=== PATIENT | male | born 1955 | race Hispanic/Latino ===

== ENCOUNTER 2016-08-06 18:25 | Emergency (ER) | payer MEDICAID ==
[2016-08-06 18:33] VITALS: BP 149/101
== END 2016-08-06 19:20 | disposition left against medical advice (07) ==
LOC: ED 18:25
DX: R07.9 Chest pain, unspecified (principal); I10 Essential (primary) hypertension; Z88.0 Allergy status to penicillin; Z88.5 Allergy status to narcotic agent; Z91.030 Bee allergy status; Z53.21 Procedure and treatment not carried out due to patient leaving prior to being seen by health care provider

== ENCOUNTER 2017-02-15 13:02 | Inpatient (IN) | payer MEDICAID ==
[2017-02-15 14:33] LABS: Basophils % (Auto) 2.6 % (0.0-1.8); Eosinophils % (Auto) 9.3 % (0.0-4.3); Hematocrit 39.9 % (35.5-45.6); Hemoglobin 13.1 gm/dl (11.8-15.2); Mean Corpuscular HGB Conc 33 % (32-34); Mean Corpuscular Hemoglobin 28 pg (28-32); Mean Corpuscular Volume 87 fl (84-94); Platelet Count 246 K/mm3 (140-440); Red Blood Count 4.59 M/mm3 (3.65-5.03); Red Cell Distribution Width 14.6 % (13.2-15.2); White Blood Count 9.3 K/mm3 (4.5-11.0)
[2017-02-15 14:51] LABS: Anion Gap 18 mmol/L; BUN/Creatinine Ratio 22.85; Blood Urea Nitrogen 32 mg/dL (9-20); Calcium 9.5 mg/dL (8.4-10.2); Carbon Dioxide 24 mmol/L (22-30); Chloride 101.6 mmol/L (98-107); Glucose 92 mg/dL (75-100); Potassium 4.7 mmol/L (3.6-5.0); Sodium 139 mmol/L (137-145)
--- NOTE | 2017-02-15 14:56 | XRay Report ---
ROUTINE CHEST, TWO VIEWS: HISTORY: Shortness of breath. The trachea, heart, mediastinal contour, lung rodgers and bony thorax are unremarkable. IMPRESSION: No acute cardiopulmonary process.
--- NOTE | 2017-02-15 21:52 | Emergency Department Report ---
ED General Adult HPI - General Chief complaint: Dyspnea/Respdistress Stated complaint: IQRA Time Seen by Provider: 02/15/17 21:51 Source: patient Mode of arrival: Ambulatory Limitations: No Limitations - History of Present Illness Initial comments: She is a 61-year-old male who presents with shortness of breath that has been going on since this morning. Patient has a history of heart failure his ejection fraction is 25%. He states that his symptoms are worse with exertion and better with rest. He states that his symptoms are moderate. He states when he gets like this he usually goes to the emergency department. Patient denies having any pain but he states that he has some palpitations. Patient denies having cough. - Related Data Home Medications Medication Instructions Recorded Confirmed Last Taken ALBUTEROL Inhaler [Proair] 2 puff IH QID PRN 02/15/17 02/15/17 Unknown Hydrochlorothiazide [Hctz] 12.5 mg PO QDAY 02/15/17 02/15/17 Unknown amLODIPine [Norvasc] 5 mg PO DAILY 02/15/17 02/15/17 Unknown Allergies Allergy/AdvReac Type Severity Reaction Status Date / Time bee venom (honey bee) Allergy Hives Verified 02/15/17 14:05 Penicillins Allergy Hives Verified 02/15/17 14:05 morphine AdvReac Unknown Verified 02/15/17 14:05 ED Review of Systems ROS: Stated complaint: IQRA Other details as noted in HPI Constitutional: denies: chills, fever Eyes: denies: eye pain, eye discharge, vision change ENT: denies: ear pain, throat pain Respiratory: shortness of breath, SOB with exertion. denies: cough, wheezing Cardiovascular: palpitations. denies: chest pain Endocrine: no symptoms reported Gastrointestinal: denies: abdominal pain, nausea, diarrhea Genitourinary: denies: urgency, dysuria Musculoskeletal: denies: back pain, joint swelling, arthralgia Skin: denies: rash, lesions Neurological: denies: headache, weakness, paresthesias Psychiatric: denies: anxiety, depression Hematological/Lymphatic: denies: easy bleeding, easy bruising ED Past Medical Hx - Past Medical History Hx Hypertension: Yes (no medication) Hx Congestive Heart Failure: Yes Hx Kidney Stones: Yes Additional medical history: MITRAL VALVE REGURGITATION - Surgical History Additional Surgical History: for broken bones - Social History Smoking Status: Never Smoker Substance Use Type: None - Medications Home Medications: Home Medications Medication Instructions Recorded Confirmed Last Taken Type ALBUTEROL Inhaler [Proair] 2 puff IH QID PRN 02/15/17 02/15/17 Unknown History Hydrochlorothiazide [Hctz] 12.5 mg PO QDAY 02/15/17 02/15/17 Unknown History amLODIPine [Norvasc] 5 mg PO DAILY 02/15/17 02/15/17 Unknown History ED Physical Exam - General Limitations: No Limitations General appearance: alert, in no apparent distress - Head Head exam: Present: atraumatic, normocephalic - Eye Eye exam: Present: normal appearance - ENT ENT exam: Present: mucous membranes moist - Neck Neck exam: Present: normal inspection - Respiratory Respiratory exam: Present: normal lung sounds bilaterally. Absent: respiratory distress - Cardiovascular Cardiovascular Exam: Present: regular rate, tachycardia, S3. Absent: systolic murmur, diastolic murmur, rubs, gallop - GI/Abdominal GI/Abdominal exam: Present: soft, normal bowel sounds - Rectal Rectal exam: Present: deferred - Extremities Exam Extremities exam: Present: normal inspection - Back Exam Back exam: Present: normal inspection - Neurological Exam Neurological exam: Present: alert, oriented X3 - Psychiatric Psychiatric exam: Present: normal affect, normal mood - Skin Skin exam: Present: warm, dry, intact, normal color. Absent: rash ED Course Vital Signs 02/15/17 02/15/17 02/15/17 14:09 21:00 21:11 Temperature 97.5 F L Pulse Rate 105 H 110 H Pulse Rate [ Bilateral Throughout] Respiratory 20 22 22 Rate Respiratory Rate [Bilateral Throughout] Blood Pressure 124/95 140/102 O2 Sat by Pulse 99 99 99 Oximetry 02/15/17 02/15/17 02/15/17 22:00 23:00 23:03 Temperature Pulse Rate 106 H 108 H 109 H Pulse Rate [ Bilateral Throughout] Respiratory 20 24 25 H Rate Respiratory Rate [Bilateral Throughout] Blood Pressure 142/97 142/98 142/98 O2 Sat by Pulse 98 98 98 Oximetry 02/16/17 02/16/17 02/16/17 00:00 00:31 00:50 Temperature Pulse Rate 114 H Pulse Rate [ 106 H 108 H Bilateral Throughout] Respiratory Rate Respiratory 18 18 Rate [Bilateral Throughout] Blood Pressure O2 Sat by Pulse 99 Oximetry 02/16/17 01:00 Temperature Pulse Rate 109 H Pulse Rate [ Bilateral Throughout] Respiratory 21 Rate Respiratory Rate [Bilateral Throughout] Blood Pressure 121/87 O2 Sat by Pulse 97 Oximetry - Reevaluation(s) Reevaluation #1: 02/16/17 02:39 She still states that he is short of breath despite giving Lasix I will send patient to be admitted ED Medical Decision Making - Lab Data Result diagrams: 02/15/17 14:19 02/15/17 14:19 Lab Results 02/15/17 02/15/17 02/15/17 Range/Units 14:19 14:19 22:45 WBC 9.3 (4.5-11.0) K/mm3 RBC 4.59 (3.65-5.03) M/mm3 Hgb 13.1 (11.8-15.2) gm/dl Hct 39.9 (35.5-45.6) % MCV 87 (84-94) fl MCH 28 (28-32) pg MCHC 33 (32-34) % RDW 14.6 (13.2-15.2) % Plt Count 246 (140-440) K/mm3 Lymph % (Auto) 21.4 (13.4-35.0) % Hyde % (Auto) 7.9 H (0.0-7.3) % Eos % (Auto) 9.3 H (0.0-4.3) % Baso % (Auto) 2.6 H (0.0-1.8) % Lymph # 2.0 (1.2-5.4) K/mm3 Hyde # 0.7 (0.0-0.8) K/mm3 Eos # 0.9 H (0.0-0.4) K/mm3 Baso # 0.2 H (0.0-0.1) K/mm3 Seg Neutrophils % 58.8 (40.0-70.0) % Seg Neutrophils # 5.4 (1.8-7.7) K/mm3 Sodium 139 (137-145) mmol/L Potassium 4.7 (3.6-5.0) mmol/L Chloride 101.6 (98-107) mmol/L Carbon Dioxide 24 (22-30) mmol/L Anion Gap 18 mmol/L BUN 32 H (9-20) mg/dL Creatinine 1.4 (0.8-1.5) mg/dL Estimated GFR 52 ml/min BUN/Creatinine Ratio 22.85 % Glucose 92 (75-100) mg/dL Calcium 9.5 (8.4-10.2) mg/dL Troponin T < 0.010 (0.00-0.029) ng/mL NT-Pro-B Natriuret Pep 5999 H (0-900) pg/mL - EKG Data -: EKG Interpreted by Me - EKG Data 02/16/17 02:40 She shows signs of LVHno ST segment elevation or T-wave inversion, normal sinus rhythm - Radiology Data Radiology results: image reviewed Chest x-ray shows mild cardiomegaly no acute pulmonary disease - Medical Decision Making Chief medical diagnosis heart failure exacerbation Differential medical diagnosis COPD, hypokalemia, and STEMI, We'll get CBC, CMP, EKG, troponin, chest x-ray due to patient's medical condition patient will require IV Lasix. I will reassess. Patient states that he still short of breath despite getting breathing treatment I will admit patient for IV Lasix and for observation for his palpitations Critical care attestation.: If time is entered above; I have spent that time in minutes in the direct care of this critically ill patient, excluding procedure time. ED Disposition Clinical Impression: CHF exacerbation Qualifiers: Congestive heart failure type: systolic Qualified Code(s): I50.23 - Acute on chronic systolic (congestive) heart failure Disposition: OP ADMIT IP TO THIS HOSP Is pt being admited?: Yes Does the pt Need Aspirin: No Condition: Stable Referrals: PRIMARY CARE, [Primary Care Provider] - 3-5 Days
[2017-02-15] MEDS ORDERED: PROVENTIL IH ONE (22:35)
[2017-02-15] MEDS ORDERED: LASIX IV ONE (22:41)
--- NOTE | 2017-02-16 02:12 | History and Physical Report ---
History of Present Illness Date of examination: 02/16/17 Date of admission: 02/16/17 Chief complaint: shortness of breath History of present illness: patient is 61-year-old with history of hypertension, CHF. He presents with shortness of breath for 1 week. Shortness of breath was on exertion and on lying flat. He mentions he also has some anxiety making his symptoms worse. He denies any chest pain. He goes to Dr. Alatorre, certified emergency vehicle technician as an outpatient. In Emergency department was diagnosed with CHF exacerbation given Lasix IV and will be admitted for further management. Past History Past Medical History: heart failure, hypertension, other (kidney stones) Past Surgical History: cataract removal, Other (kidney stones) Social history: single, full code. denies: smoking, alcohol abuse Family history: no significant family history Medications and Allergies Allergies Allergy/AdvReac Type Severity Reaction Status Date / Time bee venom (honey bee) Allergy Hives Verified 02/15/17 14:05 Penicillins Allergy Hives Verified 02/15/17 14:05 morphine AdvReac Unknown Verified 02/15/17 14:05 Home Medications Medication Instructions Recorded Confirmed Last Taken Type ALBUTEROL Inhaler [Proair] 2 puff IH QID PRN 02/15/17 02/15/17 Unknown History Hydrochlorothiazide [Hctz] 12.5 mg PO QDAY 02/15/17 02/15/17 Unknown History amLODIPine [Norvasc] 5 mg PO DAILY 02/15/17 02/15/17 Unknown History Review of Systems All systems: negative (no headache, no fever, no abdominal pain, no urinary symptoms. All other systems reviewed and are negative) Exam - Physical Exam Narrative exam: Gen appearance: Not in acute distress HEENT:Normocephalic,atraumatic Neck:supple, no JVD Lungs: Bibasilar rales, no wheezes Heart :S1 and S2 regular, no murmurs, rubs or gallop Abdomen: Soft, non tender,non distended, normal bowel sounds Extremities :no edema,no clubbing or cyanosis, Neuro: Awake alert oriented 3, no focal neurological signs - Constitutional Vitals: Temp Pulse Resp BP Pulse Ox 97.5 F L 109 H 21 121/87 97 02/15/17 14:09 02/16/17 01:00 02/16/17 01:00 02/16/17 01:00 02/16/17 01:00 Results - Labs CBC & Chem 7: 02/15/17 14:19 02/15/17 14:19 Labs: Abnormal lab results 02/15/17 02/15/17 02/15/17 Range/Units 14:19 14:19 22:45 Martin % (Auto) 7.9 H (0.0-7.3) % Eos % (Auto) 9.3 H (0.0-4.3) % Baso % (Auto) 2.6 H (0.0-1.8) % Eos # 0.9 H (0.0-0.4) K/mm3 Baso # 0.2 H (0.0-0.1) K/mm3 BUN 32 H (9-20) mg/dL NT-Pro-B Natriuret Pep 5999 H (0-900) pg/mL Assessment and Plan Acute on chronic systolic CHF. Admit to telemetry. Give Lasix IV. Consult his certified emergency vehicle technician, Dr. Alatorre. Hypertension. BP stable. Resume Norvasc from home Cardiomyopathy with EF 20-25% DVT prophylaxis with heparin subcut. Full code status
[2017-02-16] MEDS ORDERED: MILK OF MAGNESIA PO PRN (02:16)
[2017-02-16] MEDS ORDERED: DULCOLAX PR PRN (02:16)
[2017-02-16] MEDS ORDERED: ZOFRAN IV PRN (02:16)
[2017-02-16] MEDS ORDERED: NITROSTAT SL PRN (02:19)
[2017-02-16] MEDS: HEPARIN SUB-Q SCH ×3 (06:08→22:40)
[2017-02-16] MEDS: TYLENOL PO PRN ×2 (06:12→22:33)
--- NOTE | 2017-02-16 07:44 | Admit Criteria Form ---
Admission Criteria Documentation: HEART FAILURE: COMMON COMPLICATIONS Clinical Indications for Inpatient Care (blackfeet/check or initial the applicable condition/criteria): Ongoing inpatient care may be indicated for heart failure with 1 or more of the following (1)(2)(3)(4)(5)(6)(7)(8): [ ]I. New-onset heart failure [ ]II. Acute cardiac ischemia causing or associated with failure [ ]III. Ongoing need for care for primary condition requiring frequent therapy adjustments because of changes in cardiac function (eg, drug dosage changes for drugs that are renally metabolized) [X]IV. Complications of heart failure, including 1 or more of the following: [ ]a) Hemodynamic instability [ ]b) Pericardial effusion [ ]c) Symptomatic pleural effusion(16) [ ]d) Hypoxemia [ ]e) Tachypnea [X]f) Dyspnea [ ]g) Syncope [ ]h) Altered mental status [ ]i) Acute renal insufficiency that is severe (reduction of more than 50% in estimated glomerular filtration rate from baseline) or progressive (reduction of more than 25% in estimated glomerular filtration rate from baseline, with creatinine continuing to rise) [ ]j) Debilitating anasarca (eg tissue breakdown with infection, inability to void due to edema)(E) (17) [ ]k) Clinically significant metabolic abnormalities due to heart failure (e.g., new-onset metabolic acidosis) Extended stay may be needed until ALL of the following are present(1)(3)(18)(41) (55): [ ]a) Hemodynamic stability [ ]b) Stable and effective diuretic regimen established (or patient on stable dialysis regimen if in chronic renal failure) [ ]c) Volume status acceptable on oral medication [ ]d) Breathing comfortably at rest [ ]e) Saturation of arterial oxygen greater than 90% or at acceptable baseline [ ]f) Pulmonary edema absent or improved [ ]g) Peripheral or sacral edema absent or improved [ ]h) Renal function stable and manageable at a lower level of care [ ]i) Complications (e.g., pleural effusion) resolved or manageable at a lower level of care [ ]j) Patient or caregiver has received written discharge instructions or educational material addressing activity level, diet, discharge medications, follow-up appointment, weight monitoring, and what to do if symptoms worsen. (56)(57)(58) The original [facility] [employer] content created by Lonnie Trammell has been revised. The portions of the content which have been revised are identified through the use of italic text or in bold, and Lonnie Trammell has neither reviewed nor approved the modified material.All other unmodified content is copyright [facility]. Please see references footnoted in the original [facility] edition 2017 Admission Criteria Met: Yes
[2017-02-16] MEDS: PEPCID PO SCH ×2 (09:07→22:30)
[2017-02-16] MEDS ORDERED: LASIX IV SCH (10:00)
[2017-02-16] MEDS ORDERED: NORVASC PO SCH (10:00)
[2017-02-16] MEDS ORDERED: PNEUMOVAX 23 IM ONE (12:00)
--- NOTE | 2017-02-16 12:02 | Consultation ---
History of Present Illness Consult date: 02/16/17 Requesting physician: REUBEN HARRIS Consult reason: shortness of breath History of present illness: The patient is followed by Dr. Alatorre in our office. He has a history of chronic heart failure. His last echocardiogram of January 2016 revealed an ejection fraction of 50-55 percent. In February 2015, he had a negative stress test. He presents this time with a one-week history of exertional dyspnea. He still has chronic orthopnea. There is no chest pain. Past History Past Medical History: heart failure, hypertension, hyperlipidemia, other ( kidney stones) Past Surgical History: cataract removal, Other (kidney stones) Social history: single, full code. denies: smoking, alcohol abuse Family history: denies: CAD Medications and Allergies Allergies Allergy/AdvReac Type Severity Reaction Status Date / Time bee venom (honey bee) Allergy Hives Verified 02/15/17 14:05 Penicillins Allergy Hives Verified 02/15/17 14:05 morphine AdvReac Unknown Verified 02/15/17 14:05 Home Medications Medication Instructions Recorded Confirmed Last Taken Type ALBUTEROL Inhaler [Proair] 2 puff IH QID PRN 02/15/17 02/15/17 Unknown History Hydrochlorothiazide [Hctz] 12.5 mg PO QDAY 02/15/17 02/15/17 Unknown History amLODIPine [Norvasc] 5 mg PO DAILY 02/15/17 02/15/17 Unknown History Active Meds: Active Medications Acetaminophen (Tylenol) 650 mg PO Q4H PRN PRN Reason: Pain MILD(1-3)/Fever >100.5/RUIZ Last Admin: 02/16/17 06:12 Dose: 650 mg Amlodipine Besylate (Norvasc) 5 mg PO DAILY [facility] Last Admin: 02/16/17 09:06 Dose: 5 mg Bisacodyl (Dulcolax) 10 mg PA QDAY PRN PRN Reason: Constipation unrelieved by MOM Famotidine (Pepcid) 20 mg PO BID [facility] Last Admin: 02/16/17 09:07 Dose: 20 mg Furosemide (Lasix) 40 mg IV QDAY [facility] Last Admin: 02/16/17 09:06 Dose: 40 mg Heparin Sodium (Porcine) (Heparin) 5,000 unit SUB-Q Q8HR [facility] Last Admin: 02/16/17 06:08 Dose: 5,000 unit Magnesium Hydroxide (Milk Of Magnesia) 30 ml PO Q4H PRN PRN Reason: Constipation Nitroglycerin (Nitrostat) 0.4 mg SL .Q5MIN PRN PRN Reason: Chest Pain Ondansetron HCl (Zofran) 4 mg IV Q6H PRN PRN Reason: nausea or vomiting Pneumococcal Polyvalent Vaccine (Pneumovax 23) 0.5 ml IM .ONCE ONE Stop: 02/16/17 12:01 Review of Systems Constitutional: no fever, no chills Ears, nose, mouth and throat: no ear pain, no sore throat Cardiovascular: orthopnea, shortness of breath, dyspnea on exertion, paroxysmal nocturnal dyspnea Respiratory: dyspnea on exertion, no cough, no hemoptysis Gastrointestinal: no abdominal pain, no nausea, no vomiting, no diarrhea, no constipation Genitourinary Male: no dysuria, no urinary frequency Rectal: no pain, no bleeding Musculoskeletal: no neck stiffness, no neck pain, no myalgias Integumentary: no rash, no pruritis Neurological: no weakness, no parathesias, no numbness, no tingling, no headaches Endocrine: no cold intolerance, no heat intolerance Hematologic/Lymphatic: no easy bruising, no easy bleeding Allergic/Immunologic: no urticaria, no wheezing Physical Examination Vital Signs Last Vital Signs Temp 98.2 F 02/16/17 08:48 Pulse 92 H 02/16/17 09:06 Resp 18 02/16/17 08:48 BP 124/86 02/16/17 09:06 Pulse Ox 96 02/16/17 08:48 General appearance: no acute distress HEENT: Positive: EOMI, Normocephaly, Mucus Membranes Moist Neck: Positive: neck supple, trachea midline, JVD/HJR (elevated) Cardiac: Positive: Reg Rate and Rhythm, S1/S2 Lungs: Positive: clear to auscultation Neuro: Positive: Grossly Intact Abdomen: Positive: Soft, Active Bowel Sounds. Negative: Tender Skin: Positive: Clear. Negative: Rash Musculoskeletal: Normal Range of Motion Extremities: Present: normal. Absent: edema Results 02/15/17 14:19 02/15/17 14:19 Assessment and Plan I agree with IV diuretics. Replace amlodipine with a beta james. Obtain echocardiogram to reassess LV function especially with his prior history of cardiomyopathy. Ultimately, he may require ischemic reevaluation. This may be performed as an inpatient or outpatient. - Patient Problems (1) Acute on chronic diastolic heart failure Current Visit: Yes Status: Acute (2) HTN (hypertension) Current Visit: Yes Status: Chronic Qualifiers: Hypertension type: essential hypertension Qualified Code(s): I10 - Essential (primary) hypertension (3) H/O cardiomyopathy Current Visit: No Status: Resolved
[2017-02-16] MEDS ORDERED: LASIX PO SCH (13:00)
[2017-02-16 14:52] LABS: BUN/Creatinine Ratio 16.47; Calcium 9.1 mg/dL (8.4-10.2); Chloride 98.9 mmol/L (98-107); Potassium 3.9 mmol/L (3.6-5.0)
--- NOTE | 2017-02-16 16:06 | Event Note ---
Date: 02/16/17 Pt seen and examoned. will cint current mx as dictated in HPI will change lasix to po and also will reduce the dose for JOHN will monitor renal function
[2017-02-16] MEDS: LASIX PO SCH (16:55)
[2017-02-16 22:27] LABS: Magnesium 1.9 mg/dL (1.7-2.3); Phosphorous 3.8 mg/dL (2.5-4.5)
[2017-02-16] MEDS: LOPRESSOR PO SCH (22:30)
[2017-02-17 05:37] LABS: Basophils % (Auto) 2.3 % (0.0-1.8); Eosinophils % (Auto) 14.2 % (0.0-4.3); Hemoglobin 15.4 gm/dl (11.8-15.2); Mean Corpuscular HGB Conc 33 % (32-34); Mean Corpuscular Hemoglobin 28 pg (28-32); Mean Corpuscular Volume 86 fl (84-94); Platelet Count 284 K/mm3 (140-440); Red Blood Count 5.46 M/mm3 (3.65-5.03); Red Cell Distribution Width 14.7 % (13.2-15.2)
[2017-02-17 05:48] LABS: BUN/Creatinine Ratio 18.66; Calcium 9.3 mg/dL (8.4-10.2); Chloride 98.4 mmol/L (98-107); Potassium 4.6 mmol/L (3.6-5.0)
[2017-02-17] MEDS: LASIX PO SCH (06:31)
[2017-02-17] MEDS: TYLENOL PO PRN ×2 (06:31→22:42)
[2017-02-17] MEDS: HEPARIN SUB-Q SCH ×3 (06:32→22:44)
[2017-02-17] MEDS: PEPCID PO SCH ×2 (09:11→22:43)
[2017-02-17] MEDS: LOPRESSOR PO SCH ×2 (09:11→22:43)
--- NOTE | 2017-02-17 11:12 | Progress Note ---
Assessment and Plan Echo reviewed - EF 10-15%, restrictive filling pattern, RVSP 45mmHg. Initiate low dose lisinopril. Cont lopressor. Currently stable cardiac status. Pending pt tolerates addition of lisinopril with BPs WNL, he may discharge home this afternoon from cardiology standpoint. Will plan for coronary angiography as OP. Follow up in our [place] office for BMP on 02/21/2017 @ 10:00AM. Follow up in our [place] office with Dr. Alatorre on 02/22/2017 @ 9:45AM. The patient has been seen in conjunction with Dr. Toscano who agrees with the assessment and plan of care. - Patient Problems (1) Acute on chronic combined systolic and diastolic congestive heart failure Current Visit: Yes Status: Chronic (2) Cardiomyopathy Current Visit: Yes Status: Chronic Qualifiers: Cardiomyopathy type: C (3) HTN (hypertension) Current Visit: Yes Status: Chronic Qualifiers: Hypertension type: essential hypertension Qualified Code(s): I10 - Essential (primary) hypertension (4) Pulmonary HTN Current Visit: Yes Status: Chronic Subjective Date of service: 02/17/17 Principal diagnosis: HF Interval history: Pt resting comfortably in bed, states SOB has improved. Asking when he can go home. VSS. Objective Last Vital Signs Temp 98.4 F 02/17/17 08:00 Pulse 84 02/17/17 09:11 Resp 18 02/17/17 08:00 BP 128/82 02/17/17 09:11 Pulse Ox 95 02/17/17 08:00 - Physical Examination General: Appears Well HEENT: Positive: EOMI, Normocephaly, Mucus Membranes Moist Neck: Positive: neck supple, trachea midline, JVD/HJR (elevated) Cardiac: Positive: Reg Rate and Rhythm, S1/S2 Lungs: Positive: clear to auscultation Neuro: Positive: Grossly Intact Abdomen: Positive: Soft, Active Bowel Sounds. Negative: Tender Skin: Positive: Clear. Negative: Rash Musculoskeletal: Normal Range of Motion Extremities: Present: normal. Absent: edema - Labs and Meds CBC 02/17/17 Range/Units 05:12 WBC 16.0 H (4.5-11.0) K/mm3 RBC 5.46 H (3.65-5.03) M/mm3 Hgb 15.4 H (11.8-15.2) gm/dl Hct 45.0 (35.5-45.6) % Plt Count 284 (140-440) K/mm3 Lymph # 2.4 (1.2-5.4) K/mm3 Ray # 1.1 H (0.0-0.8) K/mm3 Eos # 2.3 H (0.0-0.4) K/mm3 Baso # 0.4 H (0.0-0.1) K/mm3 Comprehensive Metabolic Panel 02/16/17 02/17/17 Range/Units 14:05 05:12 Sodium 141 141 (137-145) mmol/L Potassium 3.9 4.6 (3.6-5.0) mmol/L Chloride 98.9 98.4 (98-107) mmol/L Carbon Dioxide 27 28 (22-30) mmol/L BUN 28 H 28 H (9-20) mg/dL Creatinine 1.7 H 1.5 (0.8-1.5) mg/dL Glucose 109 H 109 H (75-100) mg/dL Calcium 9.1 9.3 (8.4-10.2) mg/dL - Imaging and Cardiology Echo: report reviewed - Telemetry EKG Rhythm: Sinus Rhythm
[2017-02-17] MEDS: ZESTRIL PO SCH (12:26)
[2017-02-17] MEDS: LEVAQUIN PO SCH (12:28)
--- NOTE | 2017-02-17 16:32 | Progress Note ---
Assessment and Plan Acute on chronic systolic CHF. - reduce the dose of lasix. cardiology recommended outpt cardiac cath Hypertension. - cont current med Cardiomyopathy with EF 20-25% - echo on 02/16/17 showed Ef of 10-15% - CARDIAC CATH OUTPT Leukocytosis - place on empiric abx - obtain Cx DVT prophylaxis with heparin subcut. Full code status Subjective Date of service: 02/17/17 Principal diagnosis: HF Interval history: Pt seen and examined WBC count noted to be elevated need cardiac cath outpt Objective - Constitutional Vitals: Vital Signs - 12hr 02/17/17 02/17/17 02/17/17 08:00 09:11 10:00 Temperature 98.4 F Pulse Rate 84 84 Respiratory 18 Rate Blood Pressure 128/82 128/82 O2 Sat by Pulse 95 98 Oximetry 02/17/17 02/17/17 12:20 12:26 Temperature 98 F Pulse Rate 84 84 Respiratory 16 Rate Blood Pressure 110/84 110/84 O2 Sat by Pulse Oximetry General appearance: Present: no acute distress - EENT Eyes: PERRL, EOM intact ENT: hearing intact, clear oral mucosa Ears: bilateral: normal - Neck Neck: supple, normal ROM - Respiratory Respiratory effort: normal Respiratory: bilateral: CTA - Breasts Breasts: normal - Cardiovascular Rhythm: regular Heart Sounds: Present: S1 & S2. Absent: gallop, rub Extremities: pulses intact, No edema, normal color, Full ROM - Gastrointestinal General gastrointestinal: Present: soft, non-tender, non-distended, normal bowel sounds - Integumentary Integumentary: clear, warm, dry - Musculoskeletal Musculoskeletal: 1, strength equal bilaterally - Neurologic Neurologic: moves all extremities - Psychiatric Psychiatric: memory intact, appropriate mood/affect, intact judgment & insight - Labs CBC & Chem 7: 02/18/17 05:11 02/18/17 08:52 Labs: Abnormal lab results 02/17/17 02/17/17 Range/Units 05:12 05:12 WBC 16.0 H (4.5-11.0) K/mm3 RBC 5.46 H (3.65-5.03) M/mm3 Hgb 15.4 H (11.8-15.2) gm/dl Eos % (Auto) 14.2 H (0.0-4.3) % Baso % (Auto) 2.3 H (0.0-1.8) % Becker # 1.1 H (0.0-0.8) K/mm3 Eos # 2.3 H (0.0-0.4) K/mm3 Baso # 0.4 H (0.0-0.1) K/mm3 Seg Neutrophils # 9.8 H (1.8-7.7) K/mm3 BUN 28 H (9-20) mg/dL Glucose 109 H (75-100) mg/dL - Imaging and cardiology Chest x-ray: report reviewed
[2017-02-17] MEDS ORDERED: LEVAQUIN PO SCH (17:00)
[2017-02-17] MEDS: NEURONTIN PO SCH ×2 (18:02→22:42)
[2017-02-18 06:04] LABS: Basophils % (Auto) 1.8 % (0.0-1.8); Hematocrit 44.2 % (35.5-45.6); Hemoglobin 14.6 gm/dl (11.8-15.2); Mean Corpuscular HGB Conc 33 % (32-34); Mean Corpuscular Hemoglobin 28 pg (28-32); Mean Corpuscular Volume 86 fl (84-94); Platelet Count 276 K/mm3 (140-440); Red Blood Count 5.12 M/mm3 (3.65-5.03); Red Cell Distribution Width 14.5 % (13.2-15.2); White Blood Count 12.2 K/mm3 (4.5-11.0)
[2017-02-18] MEDS: LASIX PO SCH (06:21)
[2017-02-18] MEDS: HEPARIN SUB-Q SCH ×2 (06:21→13:19)
[2017-02-18] MEDS: NEURONTIN PO SCH ×2 (07:43→15:16)
[2017-02-18 09:30] LABS: Calcium 8.9 mg/dL (8.4-10.2); Chloride 96.8 mmol/L (98-107)
[2017-02-18 09:37] LABS: Potassium 5.6 mmol/L (3.6-5.0)
[2017-02-18] MEDS: LOPRESSOR PO SCH (10:22)
[2017-02-18] MEDS: ZESTRIL PO SCH (10:23)
[2017-02-18] MEDS: LEVAQUIN PO SCH (10:24)
[2017-02-18] MEDS: PEPCID PO SCH (10:24)
--- NOTE | 2017-02-18 13:09 | Progress Note ---
Assessment and Plan He may be discharged from a cardiac standpoint today after documenting correction of hyperkalemia. Due to borderline BPs, he may not be able to tolerate GRACIE inhibitor therapy. It may also be contributing to elevated potassium. As such, it will be discontinued. He should follow-up at our office in one week. Coronary angiography will be arranged as an outpatient. - Patient Problems (1) Acute on chronic combined systolic and diastolic congestive heart failure Current Visit: Yes Status: Acute (2) Cardiomyopathy Current Visit: Yes Status: Acute Qualifiers: Cardiomyopathy type: C (3) HTN (hypertension) Current Visit: Yes Status: Chronic Qualifiers: Hypertension type: essential hypertension Qualified Code(s): I10 - Essential (primary) hypertension (4) Pulmonary hypertension Current Visit: Yes Status: Acute (5) CKD (chronic kidney disease) Current Visit: Yes Status: Chronic Qualifiers: Chronic kidney disease stage: stage 3 (moderate) Qualified Code(s): N18.3 - Chronic kidney disease, stage 3 (moderate) Subjective Date of service: 02/18/17 Principal diagnosis: HF Interval history: No new complaint Objective Vital Signs Temp Pulse Resp BP Pulse Ox 02/18/17 10:23 100/60 02/18/17 10:22 86 100/69 02/18/17 10:00 98 02/18/17 07:25 98 F 86 18 97/65 98 02/18/17 04:00 97.7 F 78 68 H 87/54 98 02/18/17 00:00 97.7 F 90 20 116/81 97 02/17/17 22:43 94 H 111/81 02/17/17 22:42 20 02/17/17 22:00 20 02/17/17 20:00 99.8 F H 97 H 16 97/54 100 02/17/17 16:00 98 F 84 16 118/78 - Physical Examination General: Appears Well HEENT: Positive: EOMI, Normocephaly, Mucus Membranes Moist Neck: Positive: neck supple, trachea midline, JVD/HJR (elevated) Cardiac: Positive: Reg Rate and Rhythm, S1/S2 Lungs: Positive: clear to auscultation Neuro: Positive: Grossly Intact Abdomen: Positive: Soft, Active Bowel Sounds. Negative: Tender Skin: Positive: Clear. Negative: Rash Musculoskeletal: Normal Range of Motion Extremities: Present: normal. Absent: edema - Labs and Meds CBC 02/18/17 Range/Units 05:11 WBC 12.2 H (4.5-11.0) K/mm3 RBC 5.12 H (3.65-5.03) M/mm3 Hgb 14.6 (11.8-15.2) gm/dl Hct 44.2 (35.5-45.6) % Plt Count 276 (140-440) K/mm3 Lymph # 2.9 (1.2-5.4) K/mm3 [place] # 0.9 H (0.0-0.8) K/mm3 Eos # 1.7 H (0.0-0.4) K/mm3 Baso # 0.2 H (0.0-0.1) K/mm3 Comprehensive Metabolic Panel 02/18/17 Range/Units 08:52 Sodium 136 L (137-145) mmol/L Potassium 5.6 H D (3.6-5.0) mmol/L Chloride 96.8 L (98-107) mmol/L Carbon Dioxide 27 (22-30) mmol/L BUN 30 H (9-20) mg/dL Creatinine 1.5 (0.8-1.5) mg/dL Glucose 170 H (75-100) mg/dL Calcium 8.9 (8.4-10.2) mg/dL - Imaging and Cardiology Echo: report reviewed
--- NOTE | 2017-02-18 15:57 | Discharge Summary ---
Providers - Providers Date of Admission: 02/16/17 02:16 Date of discharge: 02/18/17 Attending physician: AGNIESZKA ZAIDI Primary care physician: VALERI PRETTY MD Hospitalization Condition: Stable Hospital course: Discharge summary and management: Acute on chronic systolic CHF. - reduce the dose of lasix. cardiology recommended outpt cardiac cath Hypertension. - cont current med Cardiomyopathy with EF 20-25% - echo on 02/16/17 showed Ef of 10-15% - CARDIAC CATH OUTPT Leukocytosis - likely due to acute bronchitis - placed on empiric abx - blood Cx obtained Hyperkalemia - likely from lisinopril - reversed with kayexalate, insulin and D50 CKD stage III -Cr stable on discharge DVT prophylaxis with heparin subcut. Full code status Disposition: -01 TO HOME OR SELFCARE Time spent for discharge: 32 minutes Core Measure Documentation - Palliative Care Palliative Care/ Comfort Measures: Not Applicable - Core Measures Any of the following diagnoses?: heart failure - Heart Failure Discharge Requirements GRACIE/ARB for LVSD if EF <40%: No Reason for no GRACIE/ARB: Hyperkalemia Beta james at discharge: Yes Exam - Physical Exam Narrative exam: General appearance: Present: no acute distress - EENT Eyes: PERRL, EOM intact ENT: hearing intact, clear oral mucosa Ears: bilateral: normal - Neck Neck: supple, normal ROM - Respiratory Respiratory effort: normal Respiratory: bilateral: CTA - Breasts Breasts: normal - Cardiovascular Rhythm: regular Heart Sounds: Present: S1 & S2. Absent: gallop, rub Extremities: pulses intact, No edema, normal color, Full ROM - Gastrointestinal General gastrointestinal: Present: soft, non-tender, non-distended, normal bowel sounds - Integumentary Integumentary: clear, warm, dry - Musculoskeletal Musculoskeletal: 1, strength equal bilaterally - Neurologic Neurologic: moves all extremities - Psychiatric Psychiatric: memory intact, appropriate mood/affect, intact judgment & insight - Constitutional Vitals: Temp Pulse Resp BP Pulse Ox 98 F 86 18 100/60 98 02/18/17 07:25 02/18/17 10:22 02/18/17 07:25 02/18/17 10:23 02/18/17 10:00 Plan Activity: advance as tolerated Weight Bearing Status: Non-Weight Bearing Diet: low fat, low salt Follow up with: PRIMARY CAREMD [Primary Care Provider] - 3-5 Days Prescriptions: Aspirin EC [Aspirin Enteric Coated TAB] 81 mg PO QDAY #30 tablet. Furosemide [Lasix TAB] 20 mg PO DAILY@0600 #30 tablet Gabapentin [Neurontin] 100 mg PO Q8H #90 capsule Levofloxacin [Levaquin TAB] 500 mg PO Q24HR #4 tablet Metoprolol [Lopressor TAB] 25 mg PO BID #60 tablet
[2017-02-18] MEDS ORDERED: KIONEX PO PRN (16:00)
[2017-02-18] MEDS ORDERED: D50W (25GM) IV ONE (17:00)
[2017-02-18] MEDS ORDERED: SODIUM BICARBONATE IV ONE (17:00)
[2017-02-18 18:17] VITALS: BP 105/69
== END 2017-02-18 20:27 | disposition home or self-care (01) | DRG 291 ==
LOC: ED 13:02 → 3A 02-16 02:16
PROVIDERS: ADMIT Internal Medicine; ATTEND Internal Medicine
PROC: 3E0234Z Introduction of Serum, Toxoid and Vaccine into Muscle, Percutaneous Approach (ICD-10-PCS; principal; 2017-02-16)
DX: I13.0 Hypertensive heart and chronic kidney disease with heart failure and stage 1 through stage 4 chronic kidney disease, or unspecified chronic kidney disease (principal); I50.43 Acute on chronic combined systolic (congestive) and diastolic (congestive) heart failure; I42.9 Cardiomyopathy, unspecified; I27.2 Other secondary pulmonary hypertension; I34.0 Nonrheumatic mitral (valve) insufficiency; F41.9 Anxiety disorder, unspecified; D72.829 Elevated white blood cell count, unspecified; E87.5 Hyperkalemia; N18.3 Chronic kidney disease, stage 3 (moderate); Z88.0 Allergy status to penicillin; Z88.6 Allergy status to analgesic agent; Z91.030 Bee allergy status; Z87.442 Personal history of urinary calculi; Z98.49 Cataract extraction status, unspecified eye
CPT/HCPCS: 36415; 71020; 80048; 83735; 83880; 84100; 84132; 84484; 85025; 87040; 90732; 93005; 93010; 93306; 94640; 94760; 96374; J1644; J1815; J1940

== ENCOUNTER 2017-04-09 00:18 | Inpatient (IN) | payer MEDICAID ==
[2017-04-09 00:59] LABS: Basophils % (Auto) 1.1 % (0.0-1.8); Hematocrit 40.8 % (35.5-45.6); Hemoglobin 12.9 gm/dl (11.8-15.2); Mean Corpuscular HGB Conc 32 % (32-34); Mean Corpuscular Hemoglobin 27 pg (28-32); Mean Corpuscular Volume 84 fl (84-94); Platelet Count 264 K/mm3 (140-440); Red Blood Count 4.85 M/mm3 (3.65-5.03); Red Cell Distribution Width 16.2 % (13.2-15.2); White Blood Count 12.2 K/mm3 (4.5-11.0)
[2017-04-09 01:13] LABS: Anion Gap 19 mmol/L; Blood Urea Nitrogen 30 mg/dL (9-20); Calcium 8.9 mg/dL (8.4-10.2); Carbon Dioxide 24 mmol/L (22-30); Chloride 100.5 mmol/L (98-107); Glucose 121 mg/dL (75-100); Potassium 4.4 mmol/L (3.6-5.0); Sodium 139 mmol/L (137-145)
--- NOTE | 2017-04-09 09:31 | XRay Report ---
ROUTINE CHEST, TWO VIEWS: HISTORY: Shortness of breath. Mild cardiomegaly unchanged since 03/08/17. Mild central pulmonary venous congestion has developed. The lungs are clear. No evidence for pneumonia, CHF or pneumothorax. IMPRESSION: Mild cardiomegaly and pulmonary venous congestion but no CHF.
[2017-04-09] MEDS ORDERED: LEVAQUIN 500MG/100ML 500 MG/100 ML BAG IV ONE (10:12)
[2017-04-09] MEDS ORDERED: XOPENEX IH ONE (10:12)
[2017-04-09] MEDS ORDERED: ATROVENT IH ONE (10:12)
[2017-04-09] MEDS ORDERED: LASIX IV ONE (10:12)
--- NOTE | 2017-04-09 10:18 | Emergency Department Report ---
ED Shortness of Breath HPI - General Chief Complaint: Dyspnea/Respdistress Stated Complaint: SHORTNESS OF BREATH Time Seen by Provider: 04/09/17 10:05 Source: patient, EMS Mode of arrival: Stretcher Limitations: No Limitations - History of Present Illness Initial Comments: Patient is 61 years old male with history of congestive heart failure with ejection fraction of 15%, history of COPD, history of chronic renal insufficiency presented today with shortness of breath fever going on for 3 days. Patient was recently discharged from the hospital for shortness of breath. Patient denied any nausea or vomiting denied any chest pain at this moment. MD Complaint: shortness of breath, cough -: days(s) Severity: moderate Improves With: oxygen, bronchodilators Known History Of: COPD, congestive heart failure Associated Symptoms: fever, cough - Related Data Previous Rx's Medication Instructions Recorded Last Taken Type Gabapentin [Neurontin] 100 mg PO Q8H #90 capsule 02/18/17 03/08/17 Rx ALBUTEROL Inhaler [ProAir HFA 2 puff IH QID PRN #2 inha 03/12/17 Unknown Rx Inhaler] Aspirin EC [Aspirin Enteric Coated 81 mg PO QDAY #100 tablet. 03/12/17 Unknown Rx TAB] Furosemide [Lasix TAB] 10 mg PO DAILY@0600 #30 tablet 03/12/17 Unknown Rx Gabapentin [Neurontin] 100 mg PO Q8HR #90 capsule 03/12/17 Unknown Rx Metoprolol [Lopressor TAB] 25 mg PO BID #60 tablet 03/12/17 Unknown Rx Potassium Chloride [K-Dur] 8 meq PO QDAY #30 tablet 03/12/17 Unknown Rx Allergies Allergy/AdvReac Type Severity Reaction Status Date / Time bee venom (honey bee) Allergy Hives Verified 02/15/17 14:05 Penicillins Allergy Hives Verified 02/15/17 14:05 morphine AdvReac Unknown Verified 02/15/17 14:05 ED Review of Systems ROS: Stated complaint: SHORTNESS OF BREATH Other details as noted in HPI Comment: All other systems reviewed and negative Constitutional: chills, fever Respiratory: cough, orthopnea, shortness of breath, SOB with exertion, SOB at rest, wheezing Cardiovascular: palpitations Gastrointestinal: denies: abdominal pain, nausea, vomiting Genitourinary: denies: urgency, dysuria, frequency Neurological: denies: headache, weakness, numbness ED Past Medical Hx - Past Medical History Hx Hypertension: Yes Hx Congestive Heart Failure: Yes Hx Diabetes: No Hx Kidney Stones: Yes Hx Asthma: No Hx COPD: No Additional medical history: MITRAL VALVE REGURGITATION - Surgical History Additional Surgical History: for broken bones - Social History Smoking Status: Never Smoker Substance Use Type: None - Medications Home Medications: Home Medications Medication Instructions Recorded Confirmed Last Taken Type Gabapentin [Neurontin] 100 mg PO Q8H #90 capsule 02/18/17 03/08/17 03/08/17 Rx ALBUTEROL Inhaler [ProAir HFA 2 puff IH QID PRN #2 inha 03/12/17 Unknown Rx Inhaler] Aspirin EC [Aspirin Enteric Coated 81 mg PO QDAY #100 tablet. 03/12/17 Unknown Rx TAB] Furosemide [Lasix TAB] 10 mg PO DAILY@0600 #30 tablet 03/12/17 Unknown Rx Gabapentin [Neurontin] 100 mg PO Q8HR #90 capsule 03/12/17 Unknown Rx Metoprolol [Lopressor TAB] 25 mg PO BID #60 tablet 03/12/17 Unknown Rx Potassium Chloride [K-Dur] 8 meq PO QDAY #30 tablet 03/12/17 Unknown Rx ED Physical Exam - General Limitations: No Limitations General appearance: alert, in distress (moderate respiratory distress) - Head Head exam: Present: atraumatic, normocephalic - Eye Eye exam: Present: normal appearance Pupils: Present: normal accommodation - ENT ENT exam: Present: normal exam, normal orophraynx, mucous membranes moist - Neck Neck exam: Present: normal inspection, full ROM. Absent: tenderness, meningismus, lymphadenopathy - Respiratory Respiratory exam: Present: respiratory distress, wheezes, rales, rhonchi, decreased breath sounds, prolonged expiratory. Absent: stridor, chest wall tenderness - Cardiovascular Cardiovascular Exam: Present: tachycardia. Absent: systolic murmur, diastolic murmur - GI/Abdominal GI/Abdominal exam: Present: soft, normal bowel sounds. Absent: distended, tenderness, guarding, rebound, rigid, mass, bruit, pulsatile mass - Extremities Exam Extremities exam: Present: normal inspection. Absent: pedal edema - Back Exam Back exam: Present: normal inspection. Absent: tenderness, CVA tenderness (R), CVA tenderness (L) - Neurological Exam Neurological exam: Present: alert, oriented X3, CN II-XII intact - Skin Skin exam: Present: warm, intact, normal color ED Course Vital Signs 04/09/17 04/09/17 04/09/17 00:39 00:43 08:26 Temperature 98.0 F Pulse Rate 119 H 110 H Pulse Rate [ Bilateral Throughout] Respiratory 18 20 31 H Rate Respiratory Rate [Bilateral Throughout] Blood Pressure 150/107 Blood Pressure 140/102 [Right] O2 Sat by Pulse 96 97 Oximetry 04/09/17 04/09/17 04/09/17 08:30 08:46 09:00 Temperature Pulse Rate 114 H 115 H 111 H Pulse Rate [ Bilateral Throughout] Respiratory 30 H 30 H 21 Rate Respiratory Rate [Bilateral Throughout] Blood Pressure 149/115 149/115 145/108 Blood Pressure [Right] O2 Sat by Pulse 100 100 100 Oximetry 04/09/17 04/09/17 04/09/17 09:30 10:00 10:17 Temperature 98.2 F Pulse Rate 113 H 113 H Pulse Rate [ Bilateral Throughout] Respiratory 20 24 Rate Respiratory Rate [Bilateral Throughout] Blood Pressure 150/110 153/111 Blood Pressure [Right] O2 Sat by Pulse 98 98 Oximetry 04/09/17 04/09/17 04/09/17 10:25 10:30 10:34 Temperature Pulse Rate 114 H Pulse Rate [ 112 H 115 H Bilateral Throughout] Respiratory 18 Rate Respiratory 18 20 Rate [Bilateral Throughout] Blood Pressure 162/109 Blood Pressure [Right] O2 Sat by Pulse 100 Oximetry - Reevaluation(s) Reevaluation #1: 04/09/17 10:54 Patient is feeling better but is still tight, on exam diffuse wheezing ED Medical Decision Making - Lab Data Result diagrams: 04/09/17 00:41 04/09/17 00:41 - EKG Data -: EKG Interpreted by Me EKG shows normal: sinus rhythm Rate: tachycardia - EKG Data Interpretation: no acute changes - Radiology Data Radiology results: report reviewed Chest x-ray ,No pneumonia, pulmonary venous congestion - Medical Decision Making Given the patient's clinical presentation and is still not responding well to the breathing treatment I discussed the patient to be admitted to his doctor Jamia, she agreed to admit the patient to her service. Critical care attestation.: If time is entered above; I have spent that time in minutes in the direct care of this critically ill patient, excluding procedure time. ED Disposition Clinical Impression: CHF exacerbation, COPD exacerbation, Shortness of breath Disposition: OP ADMIT IP TO THIS HOSP Is pt being admited?: Yes Condition: Stable Instructions: Chronic Obstructive Pulmonary Disease (ED) Referrals: PRIMARY CARE, [Primary Care Provider] - 3-5 Days
[2017-04-09] MEDS ORDERED: PROAIR IH PRN (11:14)
--- NOTE | 2017-04-09 11:14 | History and Physical Report ---
History of Present Illness Date of examination: 04/09/17 Date of admission: 04/09/17 Chief complaint: Worsening shortness of breath and cough 3 days duration History of present illness: A very pleasant 61-year-old male patient with significant history of nonischemic cardiomyopathy. Ejection fraction of 15% COPD chronic kidney disease presented to the emergency room with worsening shortness of breath of 3 days' duration associated with cough and congestion Patient denies any chest pain orthopnea or paroxysmal nocturnal dyspnea, complaints of mild nonproductive cough Claims complaints with his medications Initial evaluation in the emergency room patient was noted to be Tachycardic and tachypneic With the slight improvement after receiving oxygen and bronchodilators Past History Past Medical History: heart failure, hypertension, renal failure, other ( Neuropathy,cardiomyopathy Pulmonary hypertension) Past Surgical History: Other (unspecified fractures) Social history: lives with family. denies: smoking, alcohol abuse, prescription drug abuse Family history: hypertension Medications and Allergies Allergies Allergy/AdvReac Type Severity Reaction Status Date / Time bee venom (honey bee) Allergy Hives Verified 02/15/17 14:05 Penicillins Allergy Hives Verified 02/15/17 14:05 morphine AdvReac Unknown Verified 02/15/17 14:05 Home Medications Medication Instructions Recorded Confirmed Last Taken Type Gabapentin [Neurontin] 100 mg PO Q8H #90 capsule 02/18/17 03/08/17 03/08/17 Rx ALBUTEROL Inhaler [ProAir HFA 2 puff IH QID PRN #2 inha 03/12/17 Unknown Rx Inhaler] Aspirin EC [Aspirin Enteric Coated 81 mg PO QDAY #100 tablet.dr 03/12/17 Unknown Rx TAB] Furosemide [Lasix TAB] 10 mg PO DAILY@0600 #30 tablet 03/12/17 Unknown Rx Gabapentin [Neurontin] 100 mg PO Q8HR #90 capsule 03/12/17 Unknown Rx Metoprolol [Lopressor TAB] 25 mg PO BID #60 tablet 03/12/17 Unknown Rx Potassium Chloride [K-Dur] 8 meq PO QDAY #30 tablet 03/12/17 Unknown Rx Review of Systems Constitutional: weakness, no weight loss, no weight gain Ears, nose, mouth and throat: no nasal congestion, no nasal discharge Cardiovascular: chest pain, shortness of breath, no orthopnea, no palpitations Respiratory: cough, cough with sputum Gastrointestinal: no nausea, no vomiting, no diarrhea Genitourinary Male: no dysuria, no hematuria Musculoskeletal: no myalgias, no arthritis Integumentary: rash, pruritis, redness Neurological: no weakness, no numbness Psychiatric: no anxiety, no depression Endocrine: no cold intolerance, no heat intolerance Hematologic/Lymphatic: no easy bruising, no easy bleeding Allergic/Immunologic: no urticaria, no allergic rhinitis Exam - Constitutional Vitals: Temp Pulse Resp BP Pulse Ox 98.2 F 115 H 20 162/109 100 04/09/17 10:17 04/09/17 10:34 04/09/17 10:34 04/09/17 10:30 04/09/17 10:30 General appearance: Present: mild distress, well-nourished - EENT Eyes: Present: PERRL, EOM intact - Neck Neck: Present: supple, normal ROM - Respiratory Respiratory effort: normal Respiratory: bilateral: diminished, rales, negative: rhonchi, wheezing - Cardiovascular Rhythm: regular Heart Sounds: Present: S1 & S2 - Extremities Extremities: no ischemia Extremity abnormal: edema - Abdominal General gastrointestinal: Present: soft, non-tender, non-distended, normal bowel sounds - Integumentary Integumentary: Present: clear, warm - Musculoskeletal Musculoskeletal: strength equal bilaterally - Psychiatric Psychiatric: appropriate mood/affect, cooperative - Neurologic Neurologic: CNII-XII intact, moves all extremities Results - Labs CBC & Chem 7: 04/09/17 00:41 04/09/17 00:41 Labs: Abnormal lab results 04/09/17 04/09/17 Range/Units 00:41 00:41 WBC 12.2 H (4.5-11.0) K/mm3 MCH 27 L (28-32) pg RDW 16.2 H (13.2-15.2) % Eos % (Auto) 10.0 H (0.0-4.3) % Eos # 1.2 H (0.0-0.4) K/mm3 Seg Neutrophils # 8.2 H (1.8-7.7) K/mm3 BUN 30 H (9-20) mg/dL Creatinine 2.0 H (0.8-1.5) mg/dL Glucose 121 H (75-100) mg/dL NT-Pro-B Natriuret Pep 57287 H (0-900) pg/mL Assessment and Plan --Acute on chronic systolic congestive heart failure: We will manage with IV Lasix, beta blockers, no Jaren inhibitors in view of renal failure, input output monitoring, low sodium diet, fluid restriction --Nonischemic cardiomyopathy; ejection fraction of 10-15%[in 02/23] Continue current anti-failure medications, cardiology evaluation --Hypertension; moderate control, continue current antihypertensives when necessary hydralazine --Acute renal failure; secondary to ATN Gentle hydration, closely monitor his renal failure function, avoid nephrotoxic medications, nephrology evaluation if needed --Neuropathy; supportive care, Neurontin --DVT prophylaxis with Lovenox Closely monitor the patient and adjust management as needed Follow cardiology evaluation tomorrow optimize the medications Possible discharge in 1-2 days if stable
[2017-04-09] MEDS ORDERED: PROVENTIL IH PRN ×2 (11:29→11:33)
[2017-04-09] MEDS: NEURONTIN PO SCH ×2 (13:12→22:16)
[2017-04-09] MEDS ORDERED: APRESOLINE IV PRN (16:02)
[2017-04-09] MEDS: LASIX IV SCH (19:04)
[2017-04-09] MEDS: APRESOLINE PO SCH (22:16)
[2017-04-09] MEDS: LOPRESSOR PO SCH (22:17)
[2017-04-10] MEDS: NEURONTIN PO SCH ×4 (05:12→21:44)
[2017-04-10] MEDS: APRESOLINE PO SCH ×3 (05:13→21:36)
[2017-04-10] MEDS: LASIX IV SCH (05:13)
[2017-04-10 05:45] LABS: Hematocrit 44.5 % (35.5-45.6); Hemoglobin 14.4 gm/dl (11.8-15.2); Mean Corpuscular HGB Conc 32 % (32-34); Mean Corpuscular Hemoglobin 27 pg (28-32); Mean Corpuscular Volume 83 fl (84-94); Platelet Count 259 K/mm3 (140-440); Red Blood Count 5.34 M/mm3 (3.65-5.03); Red Cell Distribution Width 16.2 % (13.2-15.2)
[2017-04-10 05:47] LABS: White Blood Count 20.6 K/mm3 (4.5-11.0)
[2017-04-10 06:01] LABS: BUN/Creatinine Ratio 21.53; Calcium 9.4 mg/dL (8.4-10.2); Chloride 97.2 mmol/L (98-107); Potassium 5.1 mmol/L (3.6-5.0)
[2017-04-10 06:27] LABS: Basophils % (Manual) 0 % (0.0-1.8); Blastocytes % (Manual) 0 %; Eosinophils % (Manual) 0 % (0.0-4.3); Total Cells Counted Percent 0
[2017-04-10 07:13] LABS: Diff Status Complete; Platelet Estimate Consistent w Auto
--- NOTE | 2017-04-10 07:29 | Progress Note ---
Assessment and Plan Assessment and plan: --Acute on chronic systolic congestive heart failure: We will manage with IV Lasix, beta blockers, no Jaren inhibitors in view of renal failure, input output monitoring, low sodium diet, fluid restriction --Nonischemic cardiomyopathy; ejection fraction of 10-15%[in 02/23] Continue current anti-failure medications, cardiology evaluation --Acute exacerbation of COPD; oxygen titrate to O2 sats more than 90%, nebulizers, IV steroids, IV antibiotics. --Lactic acidosis; possible sepsis secondary to acute bronchitis, possible pneumonitis, UTI Continue empiric IV antibiotics, follow cultures, supportive care, ID evaluation if needed --Leukocytosis, secondary to sepsis, IV steroids, closely monitor, follow cultures --Hypertension; moderate control, continue current antihypertensives when necessary hydralazine --Acute renal failure; secondary to ATN Gentle hydration, closely monitor his renal failure function, avoid nephrotoxic medications, nephrology evaluation if needed --Neuropathy; supportive care, Neurontin --DVT prophylaxis with Lovenox Closely monitor the patient and adjust management as needed Consults and recommendations noted and appreciated Follow cultures, adjust antibiotics but sensitive to Full CODE STATUS Plan of care discussed with the patient and his nurse History Interval history: Patient seen and examined this morning medical records reviewed Physical slightly better no new complaints Mild shortness of breath, denies chest pain, afebrile Hospitalist Physical - Constitutional Vitals: Temp Pulse Resp BP Pulse Ox 97.8 F 94 H 20 129/90 96 04/10/17 04:50 04/10/17 04:50 04/10/17 04:50 04/10/17 05:13 04/10/17 04:50 General appearance: Present: no acute distress, well-nourished - EENT Eyes: Present: PERRL, EOM intact - Neck Neck: Present: supple, normal ROM - Respiratory Respiratory effort: normal Respiratory: bilateral: diminished, wheezing, negative: rales, rhonchi - Cardiovascular Rhythm: regular Heart Sounds: Present: S1 & S2 - Extremities Extremities: no ischemia Extremity abnormal: edema - Abdominal General gastrointestinal: soft, non-tender, non-distended - Integumentary Integumentary: Present: clear, warm, rash - Psychiatric Psychiatric: appropriate mood/affect, cooperative - Neurologic Neurologic: CNII-XII intact, moves all extremities Results - Labs CBC & Chem 7: 04/10/17 05:17 04/10/17 05:17 Labs: Laboratory Last Values WBC 20.6 K/mm3 (4.5-11.0) H 04/10/17 05:17 RBC 5.34 M/mm3 (3.65-5.03) H 04/10/17 05:17 Hgb 14.4 gm/dl (11.8-15.2) 04/10/17 05:17 Hct 44.5 % (35.5-45.6) 04/10/17 05:17 MCV 83 fl (84-94) L 04/10/17 05:17 MCH 27 pg (28-32) L 04/10/17 05:17 MCHC 32 % (32-34) 04/10/17 05:17 RDW 16.2 % (13.2-15.2) H 04/10/17 05:17 Plt Count 259 K/mm3 (140-440) 04/10/17 05:17 Lymph % (Auto) 16.0 % (13.4-35.0) 04/09/17 00:41 [place] % (Auto) 5.9 % (0.0-7.3) 04/09/17 00:41 Eos % (Auto) 10.0 % (0.0-4.3) H 04/09/17 00:41 Baso % (Auto) 1.1 % (0.0-1.8) 04/09/17 00:41 Lymph # 2.0 K/mm3 (1.2-5.4) 04/09/17 00:41 [place] # 0.7 K/mm3 (0.0-0.8) 04/09/17 00:41 Eos # 1.2 K/mm3 (0.0-0.4) H 04/09/17 00:41 Baso # 0.1 K/mm3 (0.0-0.1) 04/09/17 00:41 Add Manual Diff Complete 04/10/17 05:17 Total Counted 100 04/10/17 05:17 Seg Neutrophils % [employer] 04/10/17 05:17 Band Neutrophils % 2.0 % 04/10/17 05:17 Lymphocytes % (Manual) 6.0 % (13.4-35.0) L 04/10/17 05:17 Reactive Lymphs % (Man) 0 % 04/10/17 05:17 Monocytes % (Manual) 0 % (0.0-7.3) 04/10/17 05:17 Eosinophils % (Manual) 0 % (0.0-4.3) 04/10/17 05:17 Basophils % (Manual) 0 % (0.0-1.8) 04/10/17 05:17 Metamyelocytes % 0 % 04/10/17 05:17 Myelocytes % 0 % 04/10/17 05:17 Promyelocytes % 0 % 04/10/17 05:17 Blast Cells % 0 % 04/10/17 05:17 Nucleated RBC % Not Reportable 04/10/17 05:17 Seg Neutrophils # 8.2 K/mm3 (1.8-7.7) H 04/09/17 00:41 Seg Neutrophils # Man 19.0 K/mm3 (1.8-7.7) H 04/10/17 05:17 Band Neutrophils # 0.4 K/mm3 04/10/17 05:17 Lymphocytes # (Manual) 1.2 K/mm3 (1.2-5.4) 04/10/17 05:17 Abs React Lymphs (Man) 0.0 K/mm3 04/10/17 05:17 Monocytes # (Manual) 0.0 K/mm3 (0.0-0.8) 04/10/17 05:17 Eosinophils # (Manual) 0.0 K/mm3 (0.0-0.4) 04/10/17 05:17 Basophils # (Manual) 0.0 K/mm3 (0.0-0.1) 04/10/17 05:17 Metamyelocytes # 0.0 K/mm3 04/10/17 05:17 Myelocytes # 0.0 K/mm3 04/10/17 05:17 Promyelocytes # 0.0 K/mm3 04/10/17 05:17 Blast Cells # 0.0 K/mm3 04/10/17 05:17 WBC Morphology Not Reportable 04/10/17 05:17 Hypersegmented Neuts Not Reportable 04/10/17 05:17 Hyposegmented Neuts Not Reportable 04/10/17 05:17 Hypogranular Neuts Not Reportable 04/10/17 05:17 Smudge Cells Not Reportable 04/10/17 05:17 Toxic Granulation Not Reportable 04/10/17 05:17 Toxic Vacuolation Not Reportable 04/10/17 05:17 Dohle Bodies Not Reportable 04/10/17 05:17 Pelger-Huet Anomaly Not Reportable 04/10/17 05:17 Romero Rods Not Reportable 04/10/17 05:17 Platelet Estimate Consistent w auto 04/10/17 05:17 Clumped Platelets Not Reportable 04/10/17 05:17 Plt Clumps, EDTA Not Reportable 04/10/17 05:17 Large Platelets Not Reportable 04/10/17 05:17 Giant Platelets Not Reportable 04/10/17 05:17 Platelet Satelliting Not Reportable 04/10/17 05:17 Plt Morphology Comment Not Reportable 04/10/17 05:17 RBC Morphology Not Reportable 04/10/17 05:17 Dimorphic RBCs Not Reportable 04/10/17 05:17 Polychromasia Not Reportable 04/10/17 05:17 Hypochromasia Not Reportable 04/10/17 05:17 Poikilocytosis Not Reportable 04/10/17 05:17 Anisocytosis Not Reportable 04/10/17 05:17 Microcytosis Not Reportable 04/10/17 05:17 Macrocytosis Not Reportable 04/10/17 05:17 Spherocytes Not Reportable 04/10/17 05:17 Pappenheimer Bodies Not Reportable 04/10/17 05:17 Sickle Cells Not Reportable 04/10/17 05:17 Target Cells Not Reportable 04/10/17 05:17 Tear Drop Cells Not Reportable 04/10/17 05:17 Ovalocytes Not Reportable 04/10/17 05:17 Helmet Cells Not Reportable 04/10/17 05:17 Gr[place]-Pisek Bodies Not Reportable 04/10/17 05:17 [place] Rings Not Reportable 04/10/17 05:17 [place] Cells Not Reportable 04/10/17 05:17 Bite Cells Not Reportable 04/10/17 05:17 Crenated Cell Not Reportable 04/10/17 05:17 Elliptocytes Not Reportable 04/10/17 05:17 Acanthocytes (Spur) Not Reportable 04/10/17 05:17 Rouleaux Not Reportable 04/10/17 05:17 Hemoglobin C Crystals Not Reportable 04/10/17 05:17 Schistocytes Not Reportable 04/10/17 05:17 Malaria parasites Not Reportable 04/10/17 05:17 Bunny Bodies Not Reportable 04/10/17 05:17 Hem Pathologist Commnt No 04/10/17 05:17 Sodium 141 mmol/L (137-145) 04/10/17 05:17 Potassium 5.1 mmol/L (3.6-5.0) H 04/10/17 05:17 Chloride 97.2 mmol/L (98-107) L 04/10/17 05:17 Carbon Dioxide 30 mmol/L (22-30) 04/10/17 05:17 Anion Gap 19 mmol/L 04/10/17 05:17 BUN 28 mg/dL (9-20) H 04/10/17 05:17 Creatinine 1.3 mg/dL (0.8-1.5) 04/10/17 05:17 Estimated GFR 57 ml/min 04/10/17 05:17 BUN/Creatinine Ratio 21.53 % 04/10/17 05:17 Glucose 165 mg/dL (75-100) H 04/10/17 05:17 Lactic Acid 3.00 mmol/L (0.7-2.0) H* 04/10/17 05:17 Calcium 9.4 mg/dL (8.4-10.2) 04/10/17 05:17 Troponin T < 0.010 ng/mL (0.00-0.029) 04/09/17 00:41 NT-Pro-B Natriuret Pep 14736 pg/mL (0-900) H 04/09/17 00:41
[2017-04-10] MEDS: HALFPRIN EC PO SCH (09:50)
[2017-04-10] MEDS: LOPRESSOR PO SCH ×2 (09:52→21:36)
[2017-04-10] MEDS ORDERED: LEVAQUIN 500MG/100ML 500 MG/100 ML BAG IV SCH (10:00)
[2017-04-10] MEDS ORDERED: LEVAQUIN 250MG/50ML 250 MG/50 ML BAG IV SCH (10:00)
[2017-04-10] MEDS ORDERED: K-DUR PO SCH (10:00)
--- NOTE | 2017-04-10 11:17 | Consultation ---
History of Present Illness - Reason for Consult Consult date: 04/10/17 leukocytosis Requesting physician: FAUSTINA VELASQUEZ - History of Present Illness 61 years old female with history of non-ischemic cardiomyopathy, EF of 15%, COPD , chronic kidney disease, hypertension, who was admitted on 04/09/2017 due to progressive shortness of breath, productive cough with white sputum for 1-2 weeks, chest congestion. Patient denies any recent fever or chills. Patient reports a diffuse nodular pruritic rash over his chest, arms , abdomen and legs. Rash has started a week ago and has become worse. Patient has been exposed to cat scratches. Of note, this is the 4th admission in 2 months due to SOB, volume overload and kidney failure. He has started on new cardiac meds and diuretics. In the emergency room, initial temperature was 98, heart rate 119, blood pressure 140/102. Initial white count was 12,000 which them went to 20,000. Creatinine 2. Lactate is 2.3. CXR showed cardiomegaly and bilateral pulmonary congestion. Current Antimicrobials: Levaquin 04/10 Microbiology: Blood cultures: 04/09 neg Urine cultures: Respiratory cultures: Past History Past Medical History: heart failure, hypertension, renal failure, other ( Neuropathy,cardiomyopathy Pulmonary hypertension) Past Surgical History: Other (unspecified fractures) Social history: lives with family. denies: smoking, alcohol abuse, prescription drug abuse Family history: hypertension Medications and Allergies Allergies Allergy/AdvReac Type Severity Reaction Status Date / Time bee venom (honey bee) Allergy Hives Verified 02/15/17 14:05 Penicillins Allergy Hives Verified 02/15/17 14:05 morphine AdvReac Unknown Verified 02/15/17 14:05 Home Medications Medication Instructions Recorded Confirmed Last Taken Type Gabapentin [Neurontin] 100 mg PO Q8H #90 capsule 02/18/17 04/10/17 1 Day Ago Rx ALBUTEROL Inhaler [ProAir HFA 2 puff IH QID PRN #2 inha 03/12/17 04/10/17 1 Day Ago Rx Inhaler] Aspirin EC [Aspirin Enteric Coated 81 mg PO QDAY #100 tablet. 03/12/17 1 Day Ago Rx TAB] Furosemide [Lasix TAB] 10 mg PO DAILY@0600 #30 tablet 03/12/17 04/10/17 1 Day Ago Rx Metoprolol [Lopressor TAB] 25 mg PO BID #60 tablet 03/12/17 04/10/17 1 Day Ago Rx Potassium Chloride [K-Dur] 8 meq PO QDAY #30 tablet 03/12/17 04/10/17 1 Day Ago Rx Active Meds: Active Medications Albuterol (Proventil) 2.5 mg IH QID PRN PRN Reason: Shortness Of Breath Last Admin: 04/10/17 09:10 Dose: 2.5 mg Albuterol (Proventil) 2.5 mg IH Q4HRT PRN PRN Reason: Shortness Of Breath Aspirin (Halfprin Ec) 81 mg PO QDAY [facility] Last Admin: 04/10/17 09:50 Dose: 81 mg Furosemide (Lasix) 40 mg IV 0600,1800 [facility] Last Admin: 04/10/17 05:13 Dose: 40 mg Gabapentin (Neurontin) 100 mg PO Q8H [facility] Last Admin: 04/10/17 05:12 Dose: 100 mg Hydralazine HCl (Apresoline) 10 mg PO Q8HR [facility] Last Admin: 04/10/17 05:13 Dose: 10 mg Hydralazine HCl (Apresoline) 10 mg IV Q4HR PRN PRN Reason: Hypertension Last Admin: 04/10/17 08:08 Dose: 10 mg Levofloxacin/Dextrose (Levaquin 250mg/50ml) 250 mg in 50 mls @ 100 mls/hr IV Q24HR [facility] Last Admin: 04/10/17 09:53 Dose: 100 mls/hr Methylprednisolone Sodium Succinate (Solu-Medrol) 40 mg IV Q8HR [facility] Last Admin: 04/10/17 05:13 Dose: 40 mg Metoprolol Tartrate (Lopressor) 25 mg PO BID [facility] Last Admin: 04/10/17 09:52 Dose: 25 mg Potassium Chloride (K-Dur) 8 meq PO QDAY [facility] Review of Systems All systems: negative (cough, congestion, rash) Physical Examination - Physical Exam Narrative exam: General appearance: Alert in NAD, conversant Eyes: anicteric sclerae, moist conjunctivae; no lid-lag; PERRLA HENT: Atraumatic; oropharynx clear with moist mucous membranes and no mucosal ulcerations/no oral thrush; normal hard and soft palate. Normal external ears. Neck: Trachea midline; supple, no thyromegaly or lymphadenopathy Lungs: bibasilar crackles CV: RRR, no murmurs Abdomen: Soft, non-tender; no masses or hepatosplenomegaly Extremities: No peripheral edema or extremity lymphadenopathy Skin: multiple nodular round lesions with some dequamation and mild erythema mainly on chest, abdomen, legs, and arms. Cat scratch on left leg. Psych: Appropriate affect, alert and oriented to person, place and time. Neuro: alert and oriented x 3. Moving all extermities Lines: No CVL / PICC - Constitutional Vitals: Vital Signs Temp Pulse Resp BP Pulse Ox 98.0 F 97 H 20 134/97 99 04/10/17 07:25 04/10/17 09:27 04/10/17 09:27 04/10/17 09:52 04/10/17 07:25 Temperature -Last 24 Hours Temperature 98.0 F Temperature 97.8 F Temperature 97.5 F Temperature 98.0 F Temperature 97.3 F Temperature 97.3 F Results - Labs CBC & Chem 7: 04/10/17 05:17 04/10/17 05:17 Labs: Abnormal lab results 04/09/17 04/10/17 04/10/17 Range/Units 16:04 05:17 05:17 WBC 20.6 H (4.5-11.0) K/mm3 RBC 5.34 H (3.65-5.03) M/mm3 MCV 83 L (84-94) fl MCH 27 L (28-32) pg RDW 16.2 H (13.2-15.2) % Lymphocytes % (Manual) 6.0 L (13.4-35.0) % Seg Neutrophils # Man 19.0 H (1.8-7.7) K/mm3 Potassium (3.6-5.0) mmol/L Chloride (98-107) mmol/L BUN (9-20) mg/dL Glucose (75-100) mg/dL Lactic Acid 2.60 H* 3.00 H* (0.7-2.0) mmol/L 04/10/17 Range/Units 05:17 WBC (4.5-11.0) K/mm3 RBC (3.65-5.03) M/mm3 MCV (84-94) fl MCH (28-32) pg RDW (13.2-15.2) % Lymphocytes % (Manual) (13.4-35.0) % Seg Neutrophils # Man (1.8-7.7) K/mm3 Potassium 5.1 H (3.6-5.0) mmol/L Chloride 97.2 L (98-107) mmol/L BUN 28 H (9-20) mg/dL Glucose 165 H (75-100) mg/dL Lactic Acid (0.7-2.0) mmol/L Assessment and Plan Assessment: 1) SIRS: Present on admission, manifested by increased lactate and progressive leukocytosis. Etiology unclear ? pneumonia ? volume contraction/dehydration ( pt was on increased diuretics from recent discharge) ?IV steroides (steroids- induced leukocytosis). 2) Presumed pneumonia versus bronchitis: CXR c/w pulmonary venous congestion 3) Nodular rash pruritic? scabies ? Staph folliculitis Plan: -follow-up blood cultures -obtain C-reactive protein (CRP) -start permethrin 5% x 1 then in 2 weeks empirically -start doxycycline PO -continue levaquin -monitor leukocytosis -contact isolation Thank you Dr Velasquez for your consultation, will follow up with you. Anya Green MD Infectious Diseases Specialist [facility] ([facility]) M [phone] O [phone]
[2017-04-10] MEDS ORDERED: ACTICIN TP ONE (12:00)
[2017-04-10] MEDS: PROVENTIL IH PRN (14:43)
--- NOTE | 2017-04-10 17:00 | Event Note ---
Date: 04/10/17 Detailed cardiology consultation dictated. A: #1- Acute on chronic combined systolic and diastolic HF #2- CMP - EF 10-15% #3- Leukocytosis #4- HTN #5- Mild pulmonary HTN #6- CKD P: Monitor renal indices. Convert IV diuresis to PO. Continue metoprolol. No ACEI/ARB at this time in setting of CKD. Pt agreeable to LifeVest. LifeVest ordered. Coronary angiography for further evaluation of cardiomyopathy and MURCIA when pt. stable from a respiratory standpoint, leukocytosis resolved and when deemed safe by nephrology. Recommend nephrology consultation per primary. Sofi CABRALES NP / DR. MARTINS
[2017-04-10] MEDS: VIBRAMYCIN PO SCH (21:36)
[2017-04-11] MEDS: NEURONTIN PO SCH ×3 (04:32→22:56)
--- NOTE | 2017-04-11 05:36 | Consultation ---
LOCATION: Room #A483. CONSULTATION REQUESTING PHYSICIAN: Veronique Mendoza M.D. CONSULTING PHYSICIAN: LIDIA MARTINS M.D. HISTORY OF PRESENT ILLNESS: This is a 61-year-old white male who was admitted to the hospital with complaints of severe shortness of breath for further evaluation and management. The patient is known to have nonischemic cardiomyopathy with ejection fraction in the range of about 15%. In addition, the patient also has a history of chronic obstructive lung disease and has been on medications. The patient stated that his symptoms started getting worse about 3 days ago. He became quite dyspneic with orthopnea and he was also having cough and chest congestion. No fever, no chills. The patient denied any chest pain. As symptoms got worse, he decided to come to the Emergency Room. He denied any history of paroxysmal nocturnal dyspnea, although he had some orthopnea. The patient stated that he has been taking all his medications regularly, but his symptoms got worsened. The patient did notice some wheezing fit and coughing fit. No history of any dizziness or syncope. The patient denies any GI complaints, abdominal pain, nausea, vomiting ____. No complaints at this time. PAST MEDICAL HISTORY INCLUDES: 1. Nonischemic cardiomyopathy with severe left ventricular systolic dysfunction and ejection fraction of 15% and history of systolic heart failure. 2. Hypertension. 3. History of chronic obstructive pulmonary disease. 4. History of chronic kidney disease. SOCIAL HISTORY: The patient is nonsmoker, nonalcoholic. ALLERGIES: BEE VENOM, PENICILLIN AND MORPHINE. MEDICATIONS: At the time of admission, the patient was on aspirin 81 mg daily, Lasix 40 mg daily, gabapentin 100 mg 3 times a day, metoprolol tartrate 25 mg p.o. b.i.d. and albuterol inhaler. He was also taking gabapentin 100 mg 3 times a day. REVIEW OF SYSTEMS: CARDIOVASCULAR: History of weakness, shortness of breath, orthopnea, cough as noted. RESPIRATORY: The patient did give a history of cough and chest congestion. GENITOURINARY: Unremarkable. GASTROINTESTINAL: Unremarkable. NEUROLOGIC: Unremarkable. PHYSICAL EXAMINATION: GENERAL: This is a 61-year-old white male, well-developed, well-nourished, thin, [id number] respiratory distress, appears dyspneic, ____. SKIN: Warm and dry. HEENT: Pupils reactive. NECK: Supple. Both carotids are well palpable. No definite bruit, no JVD. CHEST AND LUNGS: Distant breath sounds, prolonged expiration noted. No significant rhonchi. A few basal rales found. HEART: S1, S2 heard well. Grade 1/6 systolic murmur noted. No diastolic murmur. ABDOMEN: Soft, nontender. Grossly nonpalpable. Bowel sounds are heard normal. EXTREMITIES: No edema at the present time, but apparently, the patient did have edema at the time of examination. NEUROLOGIC: Unremarkable. RECTAL: Not done at this time. VITAL SIGNS: The patient's blood pressure was 162/109 at the time of admission. Heart rate was 115. LABORATORY DATA: Showed hemoglobin of 12.9, hematocrit 40.8. The patient's WBC count was 12,200. The patient's BUN was 30, creatinine was 2.0. IMPRESSION: 1. Acute on chronic systolic heart failure, decompensated. 2. Nonischemic cardiomyopathy with ejection fraction of 10% to 15%. 3. Hypertension. 4. Chronic kidney disease. 5. History of peripheral neuropathy. This is a 61-year-old white male with known history of chronic systolic heart failure due to nonischemic cardiomyopathy. He is now admitted to the hospital with severe shortness of breath, cough, etc., of 3-4 days' duration for further evaluation and management. The patient's history and findings are consistent with decompensated systolic heart failure. Incidentally, the patient is also noted to have worsening of severe lung function. I agree with present management and admitting the patient to the hospital. We will go ahead and start him on diuresis and monitor the renal function closely. Monitor the blood pressure too. Resume rest of his medications as tolerated. Problems were explained to the patient in detail. The patient expressed understanding. Once the patient's condition improves, we will consider doing cardiac catheterization and coronary angiography during this admission for reevaluation of his cardiac status further. Pros and cons explained to the patient. The patient expressed understanding. Rest of the plan as per orders. Thank you for this consultation. We will follow the patient along with you. JOB# [id number] MARISABEL/AMOL
[2017-04-11] MEDS: LASIX PO SCH ×2 (05:56→05:58)
[2017-04-11] MEDS: APRESOLINE PO SCH ×3 (05:56→21:31)
[2017-04-11 08:14] LABS: Hematocrit 41.8 % (35.5-45.6); Hemoglobin 13.7 gm/dl (11.8-15.2); Mean Corpuscular HGB Conc 33 % (32-34); Mean Corpuscular Hemoglobin 27 pg (28-32); Mean Corpuscular Volume 82 fl (84-94); Platelet Count 251 K/mm3 (140-440); Red Blood Count 5.07 M/mm3 (3.65-5.03); Red Cell Distribution Width 16.4 % (13.2-15.2)
[2017-04-11 08:27] LABS: White Blood Count 33.1 K/mm3 (4.5-11.0)
[2017-04-11 08:28] LABS: Anion Gap 14 mmol/L; BUN/Creatinine Ratio 28; Blood Urea Nitrogen 33 mg/dL (9-20); Calcium 9.1 mg/dL (8.4-10.2); Carbon Dioxide 30 mmol/L (22-30); Chloride 97.1 mmol/L (98-107); Glucose 160 mg/dL (75-100); Potassium 4.5 mmol/L (3.6-5.0); Sodium 137 mmol/L (137-145)
[2017-04-11] MEDS: HALFPRIN EC PO SCH (10:00)
[2017-04-11] MEDS ORDERED: LEVAQUIN 750MG/150ML 750 MG/150 ML BAG IV SCH (10:00)
--- NOTE | 2017-04-11 10:11 | Consultation ---
History of Present Illness - Reason for Consult Consult date: 04/11/17 acute renal failure, chronic renal failure Requesting physician: RALPH CABRALES - History of Present Illness 61 years old female with history of non-ischemic cardiomyopathy, EF of 15%, COPD , chronic kidney disease, hypertension, who was admitted on 04/09/2017 due to progressive shortness of breath, productive cough with white sputum for 1-2 weeks, chest congestion. Patient denies any recent fever or chills. Patient reports a diffuse nodular pruritic rash over his chest, arms , abdomen and legs. Rash has started a week ago and has become worse. Patient has been exposed to cat scratches. Of note, this is the 4th admission in 2 months due to SOB, volume overload and kidney failure. He has started on new cardiac meds and diuretics. In the emergency room, initial temperature was 98, heart rate 119, blood pressure 140/102. Initial white count was 12,000 which them went to 20,000. Creatinine 1.2. Lactate is 2.3. CXR showed cardiomegaly and bilateral pulmonary congestion. Review of Systems All systems: negative (cough, congestion, rash) Past History Past Medical History: heart failure, hypertension, renal failure, other ( Neuropathy,cardiomyopathy Pulmonary hypertension) Past Surgical History: Other (unspecified fractures) Social history: lives with family. denies: smoking, alcohol abuse, prescription drug abuse Family history: hypertension Medications and Allergies Allergies Allergy/AdvReac Type Severity Reaction Status Date / Time bee venom (honey bee) Allergy Hives Verified 02/15/17 14:05 Penicillins Allergy Hives Verified 02/15/17 14:05 morphine AdvReac Unknown Verified 02/15/17 14:05 Home Medications Medication Instructions Recorded Confirmed Last Taken Type Gabapentin [Neurontin] 100 mg PO Q8H #90 capsule 02/18/17 04/10/17 1 Day Ago Rx ALBUTEROL Inhaler [ProAir HFA 2 puff IH QID PRN #2 inha 03/12/17 04/10/17 1 Day Ago Rx Inhaler] Aspirin EC [Aspirin Enteric Coated 81 mg PO QDAY #100 tablet. 03/12/17 1 Day Ago Rx TAB] Furosemide [Lasix TAB] 10 mg PO DAILY@0600 #30 tablet 03/12/17 04/10/17 1 Day Ago Rx Metoprolol [Lopressor TAB] 25 mg PO BID #60 tablet 03/12/17 04/10/17 1 Day Ago Rx Potassium Chloride [K-Dur] 8 meq PO QDAY #30 tablet 03/12/17 04/10/17 1 Day Ago Rx Active Meds: Active Medications Albuterol (Proventil) 2.5 mg IH Q4HRT PRN PRN Reason: Shortness Of Breath Last Admin: 04/10/17 14:43 Dose: 2.5 mg Aspirin (Halfprin Ec) 81 mg PO QDAY [facility] Last Admin: 04/10/17 09:50 Dose: 81 mg Doxycycline Hyclate (Vibramycin) 100 mg PO BID [facility] Last Admin: 04/10/17 21:36 Dose: 100 mg Furosemide (Lasix) 40 mg PO DAILY@0600 [facility] Last Admin: 04/11/17 05:58 Dose: Not Given Gabapentin (Neurontin) 100 mg PO Q8H [facility] Last Admin: 04/11/17 04:32 Dose: Not Given Hydralazine HCl (Apresoline) 10 mg PO Q8HR [facility] Last Admin: 04/11/17 05:56 Dose: 10 mg Hydralazine HCl (Apresoline) 10 mg IV Q4HR PRN PRN Reason: Hypertension Last Admin: 04/10/17 08:08 Dose: 10 mg Levofloxacin/Dextrose (Levaquin 750mg/150ml) 750 mg in 150 mls @ 100 mls/hr IV Q24HR [facility] Methylprednisolone Sodium Succinate (Solu-Medrol) 40 mg IV Q8HR [facility] Last Admin: 04/11/17 05:56 Dose: 40 mg Metoprolol Tartrate (Lopressor) 25 mg PO BID [facility] Last Admin: 04/10/17 21:36 Dose: 25 mg Exam - Vital Signs Vital signs: Vital Signs Resp 18 04/09/17 00:39 - Physical Exam Narrative exam: General appearance: Alert in NAD, conversant Eyes: anicteric sclerae, moist conjunctivae; no lid-lag; PERRLA HENT: Atraumatic; oropharynx clear with moist mucous membranes and no mucosal ulcerations/no oral thrush; normal hard and soft palate. Normal external ears. Neck: Trachea midline; supple, no thyromegaly or lymphadenopathy Lungs: bibasilar crackles CV: RRR, no murmurs Abdomen: Soft, non-tender; no masses or hepatosplenomegaly Extremities: No peripheral edema or extremity lymphadenopathy Skin: multiple nodular round lesions with some dequamation and mild erythema mainly on chest, abdomen, legs, and arms. Cat scratch on left leg. Psych: Appropriate affect, alert and oriented to person, place and time. Neuro: alert and oriented x 3. Moving all extermities Lines: No CVL / PICC Results - Lab Results 04/11/17 07:45 04/11/17 07:45 Most recent lab results Calcium 9.1 mg/dL (8.4-10.2) 04/11/17 07:45 Assessment and Plan Impression: * Acute kidney injury secondary to decreased effective circulatory volume/ cardiorenal syndrome --Baseline SCr 1.2-1.4mg/dL --Renal u/s unremarkable --UPCR 170mg * Acute systolic heart failure * Cardiomyopathy * HTN * Hx of hyperkalemia Plan: * Renal function remains stable/at baseline * ok to proceed with cardiac cath * Diuresis per cardiology * Pulmonary recs appreciated * Avoid potential nephrotoxins * strict i/os * follow up am dave
[2017-04-11 10:12] LABS: Basophils % (Manual) 0 % (0.0-1.8); Blastocytes % (Manual) 0 %; Eosinophils % (Manual) 0 % (0.0-4.3)
[2017-04-11 10:13] LABS: Diff Status Complete; Poikilocytosis Few
[2017-04-11] MEDS: LOPRESSOR PO SCH ×2 (10:37→21:32)
[2017-04-11] MEDS: VIBRAMYCIN PO SCH ×2 (10:38→21:33)
--- NOTE | 2017-04-11 11:02 | Progress Note ---
Assessment and Plan Assessment: 1) SIRS: lactate is better, leukocytosis is worsening. Etiology unclear ? pneumonia ? volume contraction/dehydration (pt was on increased diuretics from recent discharge) ?IV steroides (steroids-induced leukocytosis). CRP=0.9 2) Presumed pneumonia versus bronchitis: CXR c/w pulmonary venous congestion 3) Nodular rash pruritic? scabies ? Staph folliculitis Plan: -follow-up blood cultures -repeat permethrin 5% x 1 in 2 weeks -continue doxycycline PO total 7 days -continue levaquin ok to do PO total 7 days -monitor leukocytosis -contact isolation Thank you Dr Lynn for your consultation, will follow up with you. Anya Green MD Infectious Diseases Specialist [facility] ([facility]) M [phone] O [phone] Subjective Date of service: 04/11/17 Principal diagnosis: SIRS Interval history: feels better, breathing is better. No fever. still itching. Current Antimicrobials: Levaquin 04/10 doxycycline Microbiology: Blood cultures: 04/09 neg Urine cultures: Respiratory cultures: Objective - Exam Narrative Exam: General appearance: Alert in NAD, conversant Eyes: anicteric sclerae, moist conjunctivae; no lid-lag; PERRLA HENT: Atraumatic; oropharynx clear with moist mucous membranes and no mucosal ulcerations/no oral thrush; normal hard and soft palate. Normal external ears. Neck: Trachea midline; supple, no thyromegaly or lymphadenopathy Lungs: cta CV: RRR, no murmurs Abdomen: Soft, non-tender; no masses or hepatosplenomegaly Extremities: No peripheral edema or extremity lymphadenopathy Skin: multiple nodular round lesions with some desquamation and mild erythema mainly on chest, abdomen, legs, and arms. Cat scratch on left leg. Psych: Appropriate affect, alert and oriented to person, place and time. Neuro: alert and oriented x 3. Moving all extermities Lines: No CVL / PICC - Constitutional Vitals: Vital Signs Temp Pulse Resp BP Pulse Ox 97.9 F 98 H 18 127/96 96 04/11/17 04:29 04/11/17 05:25 04/11/17 04:29 04/11/17 04:29 04/11/17 04:29 Temperature -Last 24 Hours Temperature 97.9 F Temperature 97.9 F Temperature 98.0 F Temperature 97.6 F Temperature 97.4 F - Labs CBC & Chem 7: 04/11/17 07:45 04/11/17 07:45 Labs: Abnormal lab results 04/11/17 04/11/17 Range/Units 07:45 07:45 WBC 33.1 H (4.5-11.0) K/mm3 RBC 5.07 H (3.65-5.03) M/mm3 MCV 82 L (84-94) fl MCH 27 L (28-32) pg RDW 16.4 H (13.2-15.2) % Seg Neuts % (Manual) 87.0 H (40.0-70.0) % Lymphocytes % (Manual) 2.0 L (13.4-35.0) % Seg Neutrophils # Man 28.8 H (1.8-7.7) K/mm3 Lymphocytes # (Manual) 0.7 L (1.2-5.4) K/mm3 Monocytes # (Manual) 2.0 H (0.0-0.8) K/mm3 Chloride 97.1 L (98-107) mmol/L BUN 33 H (9-20) mg/dL Glucose 160 H (75-100) mg/dL
--- NOTE | 2017-04-11 12:32 | Progress Note ---
Assessment and Plan Assessment: Acute on chronic combined systolic and diastolic HF CMP - EF 10-15% Leukocytosis - ID following HTN Mild pulmonary HTN - RVSP 45mmHg CKD Plan: Cont present cardiac regimen. No ACEI/ARB at this time in setting of CKD. Pt agreeable to LifeVest. LifeVest ordered. Will plan to proceed with coronary angiography for further evaluation of cardiomyopathy in AM. Okay to proceed per nephrology, Dr. Ty. D/w Dr. Ty. Indications, potential risks and benefits of LHC reviewed with pt and he is agreeable to proceed. Consents obtained. NPO after MN. The patient has been seen in conjunction with Dr. Jessica who agrees with the assessment and plan of care. Subjective Date of service: 04/11/17 Principal diagnosis: HF Interval history: Pt resting comfortably in bed, states SOB and orthopnea nearly resolved. VSS. Objective Last Vital Signs Temp 97.9 F 04/11/17 04:29 Pulse 98 H 04/11/17 05:25 Resp 18 04/11/17 04:29 BP 127/96 04/11/17 04:29 Pulse Ox 96 04/11/17 04:29 - Physical Examination General: Appears Well HEENT: Positive: PERRL, Normocephaly, Mucus Membranes Moist Neck: Positive: neck supple, trachea midline Cardiac: Positive: Reg Rate and Rhythm, S1/S2 Lungs: Positive: clear to auscultation Neuro: Positive: Grossly Intact, Cranial Nerve 2-12 Intact Abdomen: Positive: Unremarkable, Soft, Active Bowel Sounds. Negative: Tender Skin: Positive: Clear. Negative: Rash, Wound Musculoskeletal: No Fluid Collection, No Pain, Normal Range of Motion Extremities: Absent: edema - Labs and Meds CBC 04/11/17 Range/Units 07:45 WBC 33.1 H (4.5-11.0) K/mm3 RBC 5.07 H (3.65-5.03) M/mm3 Hgb 13.7 (11.8-15.2) gm/dl Hct 41.8 (35.5-45.6) % Plt Count 251 (140-440) K/mm3 Comprehensive Metabolic Panel 04/11/17 Range/Units 07:45 Sodium 137 (137-145) mmol/L Potassium 4.5 (3.6-5.0) mmol/L Chloride 97.1 L (98-107) mmol/L Carbon Dioxide 30 (22-30) mmol/L BUN 33 H (9-20) mg/dL Creatinine 1.2 (0.8-1.5) mg/dL Glucose 160 H (75-100) mg/dL Calcium 9.1 (8.4-10.2) mg/dL - Imaging and Cardiology Nuclear stress test: report reviewed (02/11/2015 was negative for ischemia, EF 20% .) Echo: report reviewed (02/2017: LA and RA mildly dilated; moderate MR, moderate TR, mild AR, EF 10-15%, restrictive diastolic filling pattern, mild pulm HTN, RVSP 45mmHg) Holter: image reviewed - Telemetry EKG Rhythm: Sinus Rhythm
[2017-04-11] MEDS ORDERED: NACL 0.9% 500 ML 500 ML IV SCH (13:00)
[2017-04-11] MEDS: LEVAQUIN PO SCH (14:55)
--- NOTE | 2017-04-11 15:48 | Progress Note ---
Assessment and Plan Assessment and plan: Acute on chronic combined systolic and diastolic CHF - Patient is on IV Lasix, cardiology is following - Patient will have cardiac cath in the morning Acute kidney injury - Likely due to cardiorenal syndrome COPD exacerbation, pneumonitis, sepsis - Patient is on Solu-Medrol, IV antibiotics Skin Rash suspected scabies - ID consulted and given permethrin, related to another treatment in 2 weeks DVT prophylaxis Disposition - Continue inpatient care. History Interval history: Patient was seen and evaluated this morning, patient is breathing okay. No chest pain. Hospitalist Physical - Physical exam Narrative exam: Not in cardiopulmonary distress. The patient appeared well nourished and normally developed. Vital signs as documented. Head exam is unremarkable. No scleral icterus . Neck is without jugular venous distension, thyromegaly, or carotid bruits. Lungs are clear to auscultation. Cardiac exam reveals regular rate and Rhythm. First and second heart sounds normal. No murmurs, rubs or gallops. Abdominal exam reveals normal bowel sounds, no masses, no organomegaly and no aortic enlargement. Extremities are nonedematous and both femoral and pedal pulses are normal. Skin nodular rash. CAPSULE INSPECTOR: Alert and oriented 3. No focal weakness. - Constitutional Vitals: Temp Pulse Resp BP Pulse Ox 98.7 F 100 H 18 133/91 99 04/11/17 11:48 04/11/17 11:49 04/11/17 11:48 04/11/17 11:48 04/11/17 11:49 General appearance: Present: no acute distress, well-nourished Results - Labs CBC & Chem 7: 04/11/17 07:45 04/11/17 07:45 Labs: Laboratory Last Values WBC 33.1 K/mm3 (4.5-11.0) H 04/11/17 07:45 RBC 5.07 M/mm3 (3.65-5.03) H 04/11/17 07:45 Hgb 13.7 gm/dl (11.8-15.2) 04/11/17 07:45 Hct 41.8 % (35.5-45.6) 04/11/17 07:45 MCV 82 fl (84-94) L 04/11/17 07:45 MCH 27 pg (28-32) L 04/11/17 07:45 MCHC 33 % (32-34) 04/11/17 07:45 RDW 16.4 % (13.2-15.2) H 04/11/17 07:45 Plt Count 251 K/mm3 (140-440) 04/11/17 07:45 Lymph % (Auto) 16.0 % (13.4-35.0) 04/09/17 00:41 Divide % (Auto) 5.9 % (0.0-7.3) 04/09/17 00:41 Eos % (Auto) 10.0 % (0.0-4.3) H 04/09/17 00:41 Baso % (Auto) 1.1 % (0.0-1.8) 04/09/17 00:41 Lymph # 2.0 K/mm3 (1.2-5.4) 04/09/17 00:41 Divide # 0.7 K/mm3 (0.0-0.8) 04/09/17 00:41 Eos # 1.2 K/mm3 (0.0-0.4) H 04/09/17 00:41 Baso # 0.1 K/mm3 (0.0-0.1) 04/09/17 00:41 Add Manual Diff Complete 04/11/17 07:45 Total Counted 100 04/11/17 07:45 Seg Neutrophils % Senior Php Developer 04/11/17 07:45 Seg Neuts % (Manual) 87.0 % (40.0-70.0) H 04/11/17 07:45 Band Neutrophils % 5.0 % 04/11/17 07:45 Lymphocytes % (Manual) 2.0 % (13.4-35.0) L 04/11/17 07:45 Reactive Lymphs % (Man) 0 % 04/11/17 07:45 Monocytes % (Manual) 6.0 % (0.0-7.3) 04/11/17 07:45 Eosinophils % (Manual) 0 % (0.0-4.3) 04/11/17 07:45 Basophils % (Manual) 0 % (0.0-1.8) 04/11/17 07:45 Metamyelocytes % 0 % 04/11/17 07:45 Myelocytes % 0 % 04/11/17 07:45 Promyelocytes % 0 % 04/11/17 07:45 Blast Cells % 0 % 04/11/17 07:45 Nucleated RBC % Not Reportable 04/11/17 07:45 Seg Neutrophils # 8.2 K/mm3 (1.8-7.7) H 04/09/17 00:41 Seg Neutrophils # Man 28.8 K/mm3 (1.8-7.7) H 04/11/17 07:45 Band Neutrophils # 1.7 K/mm3 04/11/17 07:45 Lymphocytes # (Manual) 0.7 K/mm3 (1.2-5.4) L 04/11/17 07:45 Abs React Lymphs (Man) 0.0 K/mm3 04/11/17 07:45 Monocytes # (Manual) 2.0 K/mm3 (0.0-0.8) H 04/11/17 07:45 Eosinophils # (Manual) 0.0 K/mm3 (0.0-0.4) 04/11/17 07:45 Basophils # (Manual) 0.0 K/mm3 (0.0-0.1) 04/11/17 07:45 Metamyelocytes # 0.0 K/mm3 04/11/17 07:45 Myelocytes # 0.0 K/mm3 04/11/17 07:45 Promyelocytes # 0.0 K/mm3 04/11/17 07:45 Blast Cells # 0.0 K/mm3 04/11/17 07:45 WBC Morphology Not Reportable 04/11/17 07:45 Hypersegmented Neuts Not Reportable 04/11/17 07:45 Hyposegmented Neuts Not Reportable 04/11/17 07:45 Hypogranular Neuts Not Reportable 04/11/17 07:45 Smudge Cells Not Reportable 04/11/17 07:45 Toxic Granulation Not Reportable 04/11/17 07:45 Toxic Vacuolation Not Reportable 04/11/17 07:45 Dohle Bodies Not Reportable 04/11/17 07:45 Pelger-Huet Anomaly Not Reportable 04/11/17 07:45 Romero Rods Not Reportable 04/11/17 07:45 Platelet Estimate Not Reportable 04/11/17 07:45 Clumped Platelets Not Reportable 04/11/17 07:45 Plt Clumps, EDTA Not Reportable 04/11/17 07:45 Large Platelets Not Reportable 04/11/17 07:45 Giant Platelets Not Reportable 04/11/17 07:45 Platelet Satelliting Not Reportable 04/11/17 07:45 Plt Morphology Comment Not Reportable 04/11/17 07:45 RBC Morphology Not Reportable 04/11/17 07:45 Dimorphic RBCs Not Reportable 04/11/17 07:45 Polychromasia Not Reportable 04/11/17 07:45 Hypochromasia Not Reportable 04/11/17 07:45 Poikilocytosis Few 04/11/17 07:45 Anisocytosis Not Reportable 04/11/17 07:45 Microcytosis Not Reportable 04/11/17 07:45 Macrocytosis Not Reportable 04/11/17 07:45 Spherocytes Not Reportable 04/11/17 07:45 Pappenheimer Bodies Not Reportable 04/11/17 07:45 Sickle Cells Not Reportable 04/11/17 07:45 Target Cells Not Reportable 04/11/17 07:45 Tear Drop Cells Not Reportable 04/11/17 07:45 Ovalocytes Not Reportable 04/11/17 07:45 Helmet Cells Not Reportable 04/11/17 07:45 [place] Bodies Not Reportable 04/11/17 07:45 [place] Rings Not Reportable 04/11/17 07:45 [place] Cells Not Reportable 04/11/17 07:45 Bite Cells Not Reportable 04/11/17 07:45 Crenated Cell Not Reportable 04/11/17 07:45 Elliptocytes Not Reportable 04/11/17 07:45 Acanthocytes (Spur) Not Reportable 04/11/17 07:45 Rouleaux Not Reportable 04/11/17 07:45 Hemoglobin C Crystals Not Reportable 04/11/17 07:45 Schistocytes Not Reportable 04/11/17 07:45 Malaria parasites Not Reportable 04/11/17 07:45 Bunny Bodies Not Reportable 04/11/17 07:45 Hem Pathologist Commnt No 04/11/17 07:45 Sodium 137 mmol/L (137-145) 04/11/17 07:45 Potassium 4.5 mmol/L (3.6-5.0) 04/11/17 07:45 Chloride 97.1 mmol/L (98-107) L 04/11/17 07:45 Carbon Dioxide 30 mmol/L (22-30) 04/11/17 07:45 Anion Gap 14 mmol/L 04/11/17 07:45 BUN 33 mg/dL (9-20) H 04/11/17 07:45 Creatinine 1.2 mg/dL (0.8-1.5) 04/11/17 07:45 Estimated GFR > 60 ml/min 04/11/17 07:45 BUN/Creatinine Ratio 28 % 04/11/17 07:45 Glucose 160 mg/dL (75-100) H 04/11/17 07:45 Lactic Acid 1.70 mmol/L (0.7-2.0) 04/11/17 07:45 Calcium 9.1 mg/dL (8.4-10.2) 04/11/17 07:45 Troponin T < 0.010 ng/mL (0.00-0.029) 04/09/17 00:41 C-Reactive Protein 0.90 mg/dL (0.00-1.30) 04/10/17 13:50 NT-Pro-B Natriuret Pep 73487 pg/mL (0-900) H 04/09/17 00:41
[2017-04-11] MEDS: PROVENTIL IH PRN (20:29)
[2017-04-12] MEDS ORDERED: ZOFRAN IV PRN (01:34)
[2017-04-12] MEDS ORDERED: PERCOCET 5/325 PO PRN (01:35)
[2017-04-12] MEDS: NEURONTIN PO SCH (04:00)
[2017-04-12] MEDS: APRESOLINE PO SCH (05:08)
[2017-04-12 06:02] LABS: Hematocrit 41.2 % (35.5-45.6); Mean Corpuscular HGB Conc 32 % (32-34); Mean Corpuscular Hemoglobin 26 pg (28-32); Mean Corpuscular Volume 83 fl (84-94); Platelet Count 237 K/mm3 (140-440); Red Blood Count 4.97 M/mm3 (3.65-5.03); Red Cell Distribution Width 16.8 % (13.2-15.2)
[2017-04-12 06:03] LABS: White Blood Count 26.7 K/mm3 (4.5-11.0)
[2017-04-12 06:11] LABS: INR 1.25 (0.87-1.13)
[2017-04-12 06:29] LABS: Calcium 8.5 mg/dL (8.4-10.2); Chloride 99.6 mmol/L (98-107); Potassium 4.6 mmol/L (3.6-5.0)
[2017-04-12] MEDS: LASIX PO SCH (06:39)
[2017-04-12 07:03] LABS: Basophils % (Manual) 0 % (0.0-1.8); Blastocytes % (Manual) 0 %; Eosinophils % (Manual) 0 % (0.0-4.3)
[2017-04-12 07:04] LABS: Diff Status Complete; Platelet Estimate Consistent w Auto
[2017-04-12 08:55] VITALS: BP 124/91
[2017-04-12] MEDS ORDERED: HEPARIN/NS 5000 UNIT/500ML(CATH LAB) 1,000 ML IR ONE (08:58)
[2017-04-12] MEDS ORDERED: HEPARIN 10,000 UNITS/10 ML ONE (08:58)
[2017-04-12] MEDS ORDERED: CALAN ONE (08:59)
[2017-04-12] MEDS ORDERED: XYLOCAINE 2% INFILTRATI ONE (08:59)
[2017-04-12] MEDS ORDERED: NITROGLYCERIN SYRINGE 3 ML ONE (08:59)
[2017-04-12] MEDS ORDERED: SUBLIMAZE ONE (09:00)
[2017-04-12] MEDS ORDERED: VERSED ONE (09:00)
--- NOTE | 2017-04-12 09:39 | Progress Note ---
Assessment and Plan acute on chronic systolic heart dysfunction acute respiratory failure acute renal failure secondary to vasomotor dysfunction pulmonary htn rec: pt is compensated heart failure, walking and able to ly flat, cont lasix and increase Lopressor 25mg tid and no chio or arb secondary to renal failure and will reaccess in outpatient and will have life vest, may discharge after life vest. Subjective Date of service: 04/12/17 Principal diagnosis: HF Interval history: pt sob has improved and able to ly flat Objective Vital Signs Temp Pulse Pulse Resp Resp BP BP 04/12/17 08:14 97.7 F 105 H 18 124/91 04/12/17 05:00 101 H 04/12/17 04:27 98.4 F 108 H 18 110/77 04/11/17 23:21 98.2 F 112 H 18 124/80 04/11/17 20:30 97.4 F L 106 H 107 H 18 20 134/94 04/11/17 20:20 105 H 18 04/11/17 15:49 100 H 124/81 04/11/17 15:00 97.6 F 81 22 124/81 04/11/17 11:49 100 H 04/11/17 11:48 98.7 F 101 H 18 133/91 04/11/17 10:00 20 Pulse Ox 04/12/17 08:14 97 04/12/17 05:00 04/12/17 04:27 96 04/11/17 23:21 96 04/11/17 20:30 99 04/11/17 20:20 04/11/17 15:49 98 04/11/17 15:00 100 04/11/17 11:49 99 04/11/17 11:48 99 04/11/17 10:00 - Physical Examination General: Appears Well HEENT: Positive: PERRL, Normocephaly, Mucus Membranes Moist Neck: Positive: neck supple, trachea midline Cardiac: Positive: Reg Rate and Rhythm, Tachycardia Lungs: Positive: clear to auscultation Neuro: Positive: Grossly Intact, Cranial Nerve 2-12 Intact Abdomen: Positive: Unremarkable, Soft, Active Bowel Sounds. Negative: Tender Skin: Positive: Clear. Negative: Rash, Wound Musculoskeletal: No Fluid Collection, No Pain, Normal Range of Motion Extremities: Absent: edema - Labs and Meds Coagulation 04/12/17 Range/Units 05:49 PT 16.3 H (12.2-14.9) Sec. INR 1.25 H (0.87-1.13) CBC 04/12/17 Range/Units 05:49 WBC 26.7 H (4.5-11.0) K/mm3 RBC 4.97 (3.65-5.03) M/mm3 Hgb 13.0 (11.8-15.2) gm/dl Hct 41.2 (35.5-45.6) % Plt Count 237 (140-440) K/mm3 Comprehensive Metabolic Panel 04/12/17 Range/Units 05:49 Sodium 139 (137-145) mmol/L Potassium 4.6 (3.6-5.0) mmol/L Chloride 99.6 (98-107) mmol/L Carbon Dioxide 26 (22-30) mmol/L BUN 35 H (9-20) mg/dL Creatinine 1.3 (0.8-1.5) mg/dL Glucose 159 H (75-100) mg/dL Calcium 8.5 (8.4-10.2) mg/dL - Imaging and Cardiology Echo: report reviewed (02/2017: LA and RA mildly dilated; moderate MR, moderate TR, mild AR, EF 10-15%, restrictive diastolic filling pattern, mild pulm HTN, RVSP 45mmHg) Cardiac cath: report reviewed (patent coronaries and severe lv dsyfunction ) Holter: image reviewed
--- NOTE | 2017-04-12 10:12 | Progress Note ---
Assessment and Plan Impression: * Acute kidney injury secondary to decreased effective circulatory volume/ cardiorenal syndrome --Baseline SCr 1.2-1.4mg/dL --Renal u/s unremarkable --UPCR 170mg * Acute systolic heart failure * Cardiomyopathy * HTN * Hx of hyperkalemia Plan: * Renal function remains stable/at baseline * follow up am lytes * Diuresis per cardiology * Pulmonary recs appreciated * Avoid potential nephrotoxins * strict i/os * follow up am lytes * can dc home Subjective Date of service: 04/12/17 Principal diagnosis: HF Interval history: resting in bed today Objective - Exam Narrative Exam: General appearance: Alert in NAD, conversant Eyes: anicteric sclerae, moist conjunctivae; no lid-lag; PERRLA HENT: Atraumatic; oropharynx clear with moist mucous membranes and no mucosal ulcerations/no oral thrush; normal hard and soft palate. Normal external ears. Neck: Trachea midline; supple, no thyromegaly or lymphadenopathy Lungs: bibasilar crackles CV: RRR, no murmurs Abdomen: Soft, non-tender; no masses or hepatosplenomegaly Extremities: No peripheral edema or extremity lymphadenopathy Skin: multiple nodular round lesions with some dequamation and mild erythema mainly on chest, abdomen, legs, and arms. Cat scratch on left leg. Psych: Appropriate affect, alert and oriented to person, place and time. Neuro: alert and oriented x 3. Moving all extermities Lines: No CVL / PICC - Vital Signs Vital signs: Vital Signs - 12hr 04/11/17 04/12/17 04/12/17 23:21 04:27 05:00 Temperature 98.2 F 98.4 F Pulse Rate 112 H 108 H 101 H Respiratory 18 18 Rate Blood Pressure 124/80 110/77 O2 Sat by Pulse 96 96 Oximetry 04/12/17 08:14 Temperature 97.7 F Pulse Rate 105 H Respiratory 18 Rate Blood Pressure 124/91 O2 Sat by Pulse 97 Oximetry - Lab 04/12/17 05:49 04/12/17 05:49 Most recent lab results Calcium 8.5 mg/dL (8.4-10.2) 04/12/17 05:49
--- NOTE | 2017-04-12 10:23 | Cardiac Catherization Report ---
LEFT HEART CATHETERIZATION CLINICAL INFORMATION: This is a left heart catheterization for cardiomyopathy. The patient came for CHF symptoms. The patient has EF 10 to 15%. PROCEDURE DETAILS: Procedure was performed via the right radial artery, sterile technique, local anesthesia, 6-[place] radial sheath inserted. PROCEDURE FINDINGS: Left system engaged with a JL3.5 catheter. FINDINGS: Left main is a large caliber vessel, patent. LAD is a large caliber vessel, patent. Diagonal 1 is a medium caliber vessel, it is patent. Ramus is a large caliber vessel, is patent. Circ in the AV groove is a large caliber vessel, patent. OM1 is a medium caliber vessel, patent. RCA is a large dominant vessel, patent from proximally and distally, bifurcates into medium caliber PDA and PLV that are long and patent. LV gram done in ANGELO and NIELSEN view shows severe LV dysfunction, LV dilatation, EF 10-15%. LVEDP of 30-35 mmHg. LV is 125 mmHg, aortic is 123/90 mmHg. No significant gradient across the aortic valve on pullback. 5-[place] catheters were taken over a guidewire. A 6-[place] radial sheath was discontinued. Radial dressing applied. No hematoma. No bleeding. SUMMARY: 1. Left main patent, LAD patent, circ patent, ramus patent, RCA patent. 2. Severe LV dysfunction. 3. This is nonischemic cardiomyopathy. Continue medical management. JOB# [id number] AMMON/AMOL
--- NOTE | 2017-04-12 10:58 | Progress Note ---
Assessment and Plan Assessment: 1) SIRS: lactate is better, leukocytosis is better. Etiology unclear ? pneumonia ? volume contraction/dehydration (pt was on increased diuretics from recent discharge) ?IV steroides (steroids-induced leukocytosis). CRP=0.9 2) Presumed pneumonia versus bronchitis: CXR c/w pulmonary venous congestion 3) Nodular rash pruritic? scabies ? Staph folliculitis Plan: -repeat permethrin 5% x 1 in 2 weeks -continue doxycycline PO total 7 days -continue levaquin ok to do PO total 7 days -monitor leukocytosis -contact isolation I am signing off Thank you Dr Lynn for your consultation, will follow up with you. Anya Green MD Infectious Diseases Specialist [facility] ([facility]) M [phone] O [phone] Subjective Date of service: 04/12/17 Principal diagnosis: HF Interval history: feels better, breathing is better. No fever. No itching. Current Antimicrobials: Levaquin 04/10 doxycycline Microbiology: Blood cultures: 04/09 neg Urine cultures: Respiratory cultures: Objective - Exam Narrative Exam: General appearance: Alert in NAD, conversant Eyes: anicteric sclerae, moist conjunctivae; no lid-lag; PERRLA HENT: Atraumatic; oropharynx clear with moist mucous membranes and no mucosal ulcerations/no oral thrush; normal hard and soft palate. Normal external ears. Neck: Trachea midline; supple, no thyromegaly or lymphadenopathy Lungs: cta CV: RRR, no murmurs Abdomen: Soft, non-tender; no masses or hepatosplenomegaly Extremities: No peripheral edema or extremity lymphadenopathy Skin: multiple nodular round lesions with some desquamation and mild erythema mainly on chest, abdomen, legs, and arms. Cat scratch on left leg. Psych: Appropriate affect, alert and oriented to person, place and time. Neuro: alert and oriented x 3. Moving all extermities Lines: No CVL / PICC - Constitutional Vitals: Vital Signs Temp Pulse Resp BP Pulse Ox 97.7 F 105 H 18 124/91 97 04/12/17 08:14 04/12/17 08:14 04/12/17 08:14 04/12/17 08:14 04/12/17 08:14 Temperature -Last 24 Hours Temperature 97.7 F Temperature 98.4 F Temperature 98.2 F Temperature 97.4 F Temperature 97.6 F Temperature 98.7 F - Labs CBC & Chem 7: 04/12/17 05:49 04/12/17 05:49 Labs: Abnormal lab results 04/11/17 04/12/17 04/12/17 Range/Units 15:12 05:49 05:49 WBC 26.7 H (4.5-11.0) K/mm3 MCV 83 L (84-94) fl MCH 26 L (28-32) pg RDW 16.8 H (13.2-15.2) % Seg Neuts % (Manual) 97.0 H (40.0-70.0) % Lymphocytes % (Manual) 1.0 L (13.4-35.0) % Seg Neutrophils # Man 25.9 H (1.8-7.7) K/mm3 Lymphocytes # (Manual) 0.3 L (1.2-5.4) K/mm3 PT 16.3 H (12.2-14.9) Sec. INR 1.25 H (0.87-1.13) BUN (9-20) mg/dL Glucose (75-100) mg/dL POC Glucose 213 H (70-105) 04/12/17 Range/Units 05:49 WBC (4.5-11.0) K/mm3 MCV (84-94) fl MCH (28-32) pg RDW (13.2-15.2) % Seg Neuts % (Manual) (40.0-70.0) % Lymphocytes % (Manual) (13.4-35.0) % Seg Neutrophils # Man (1.8-7.7) K/mm3 Lymphocytes # (Manual) (1.2-5.4) K/mm3 PT (12.2-14.9) Sec. INR (0.87-1.13) BUN 35 H (9-20) mg/dL Glucose 159 H (75-100) mg/dL POC Glucose (70-105)
--- NOTE | 2017-04-12 11:11 | Event Note ---
Date: 04/12/17 Follow up in our [place] office with Khushi Manley NP, on 04/18/2017 @ 1:00PM. Sofi BELLE NP / DR. SANFORD
--- NOTE | 2017-04-12 11:22 | Discharge Summary ---
Providers - Providers Date of Admission: 04/09/17 10:58 Date of discharge: 04/12/17 Attending physician: DEA SANCHEZ MD 04/09/17 16:08 Consult to Physician [CONS] Routine Consulting Provider: MELECIO ENRIQUEZ Reason For Exam: acute on chronic syst CHF Place consult to:: [facility] Notified:: y Was contact made?: Yes If yes, spoke with:: Dr burciaga Time called:: 16:24 Comment:: add to list 04/10/17 11:07 Consult to Physician [CONS] Routine Consulting Provider: AKOSUA DAMIAN Reason For Exam: ID Place consult to:: id Notified:: yes Comment:: add to list per Dr Garcia 04/10/17 20:03 Consult to Physician [CONS] Routine Consulting Provider: WALTER FELIPE Reason For Exam: acute on CKD/per cardiology request Place consult to:: Notified:: Phone number called:: [phone] Was contact made?: Yes If yes, spoke with:: SAMIRA Time called:: 08:42 Comment:: CHANDA 04/12/17 09:32 Consult to Cardiac Rehabilitation [CONS] Routine Reason For Exam: Cardiac Rehab Evaluation Primary care physician: [employer] Hospitalization Reason for admission: CHF exacerbation, COPD Condition: Stable Pertinent studies: Cardiac cath: clean coronaries. Hospital course: History of present illness: A very pleasant 61-year-old male patient with significant history of nonischemic cardiomyopathy. Ejection fraction of 15% COPD chronic kidney disease presented to the emergency room with worsening shortness of breath of 3 days' duration associated with cough and congestion Patient denies any chest pain orthopnea or paroxysmal nocturnal dyspnea, complaints of mild nonproductive cough Claims complaints with his medications Initial evaluation in the emergency room patient was noted to be Tachycardic and tachypneic With the slight improvement after receiving oxygen and bronchodilators. Patient was admitted to the floor and he was managed for COPD exacerbation and acute on chronic systolic CHF exacerbation. He has itchy skin lesions prominently on the arms and ID was consulted and diagnosed him as scabies and was treated with permethrin which improved his condition. The patient has been admitted many times recently cardiology recommended to do cardiac cath and it was negative. Patient claimed he has chronic kidney diseases and have follow-up with nephrology that his creatinine was within normal limits by the time of discharge. Patient has follow-up also with pulmonary for his COPD. Patient was hemodynamically stable at the time of discharge. Patient is scheduled to see cardiology within 5-7 days. His GRACIE inhibitor was held and will be restarted in his cardiology visit after getting his BMP because of his recent cardiac cath. Disposition: DC-01 TO HOME OR SELFCARE - Discharge Diagnoses (1) CHF exacerbation Status: Acute Qualifiers: Congestive heart failure type: systolic Qualified Code(s): I50.23 - Acute on chronic systolic (congestive) heart failure (2) COPD exacerbation Status: Acute Core Measure Documentation - Palliative Care Palliative Care/ Comfort Measures: Not Applicable - Core Measures Any of the following diagnoses?: heart failure, none - Heart Failure Discharge Requirements GRACIE/ARB for LVSD if EF <40%: No Reason for no GRACIE/ARB: Renal impairment Beta james at discharge: Yes Exam - Physical Exam Narrative exam: Not in cardiopulmonary distress. The patient appeared well nourished and normally developed. Vital signs as documented. Head exam is unremarkable. No scleral icterus . Neck is without jugular venous distension, thyromegaly, or carotid bruits. Lungs are clear to auscultation. Cardiac exam reveals regular rate and Rhythm. First and second heart sounds normal. No murmurs, rubs or gallops. Abdominal exam reveals normal bowel sounds, no masses, no organomegaly and no aortic enlargement. Extremities are nonedematous and both femoral and pedal pulses are normal. Skin nodular rash. 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 No focal weakness. - Constitutional Vitals: Temp Pulse Resp BP Pulse Ox 97.7 F 105 H 18 124/91 97 04/12/17 08:14 04/12/17 08:14 04/12/17 08:14 04/12/17 08:14 04/12/17 08:14 Plan Activity: no restrictions Weight Bearing Status: Full Weight Bearing Diet: low cholesterol, low salt Follow up with: PRIMARY CARE, [Primary Care Provider] - 3-5 Days Prescriptions: ALBUTEROL Inhaler [ProAir HFA Inhaler] 2 puff IH QID PRN #2 inha PRN Reason: Shortness Of Breath Doxycycline [Vibramycin CAP] 100 mg PO BID #10 capsule Furosemide [Lasix TAB] 40 mg PO DAILY@0600 #30 tablet Levofloxacin [Levaquin TAB] 500 mg PO Q24HR #5 tablet Metoprolol [Lopressor TAB] 25 mg PO TID #60 tablet Prednisone [predniSONE 10 mg (6-Day Pack, 21 Tabs)] 10 mg PO .TAPER #1 tab.ds.pk
[2017-04-12] MEDS: HALFPRIN EC PO SCH (12:17)
[2017-04-12] MEDS: LEVAQUIN PO SCH (12:17)
[2017-04-12] MEDS: VIBRAMYCIN PO SCH (12:17)
[2017-04-12] MEDS ORDERED: LOPRESSOR PO SCH (14:00)
== END 2017-04-12 15:19 | disposition home or self-care (01) | DRG 871 ==
LOC: ED 00:18 → 4A 10:58
PROVIDERS: ADMIT Internal Medicine; ATTEND Internal Medicine
PROC: 4A023N7 Measurement of Cardiac Sampling and Pressure, Left Heart, Percutaneous Approach (ICD-10-PCS; principal; 2017-04-09)
PROC: B2111ZZ Fluoroscopy of Multiple Coronary Arteries using Low Osmolar Contrast (ICD-10-PCS; 2017-04-09)
PROC: B2151ZZ Fluoroscopy of Left Heart using Low Osmolar Contrast (ICD-10-PCS; 2017-04-09)
DX: A41.9 Sepsis, unspecified organism (principal); I50.23 Acute on chronic systolic (congestive) heart failure; N17.0 Acute kidney failure with tubular necrosis; J18.9 Pneumonia, unspecified organism; J96.00 Acute respiratory failure, unspecified whether with hypoxia or hypercapnia; J44.1 Chronic obstructive pulmonary disease with (acute) exacerbation; E87.2 Acidosis; I42.9 Cardiomyopathy, unspecified; I13.0 Hypertensive heart and chronic kidney disease with heart failure and stage 1 through stage 4 chronic kidney disease, or unspecified chronic kidney disease; J20.9 Acute bronchitis, unspecified; I27.20 Pulmonary hypertension, unspecified; N18.9 Chronic kidney disease, unspecified; G62.9 Polyneuropathy, unspecified; Z87.442 Personal history of urinary calculi; Z79.82 Long term (current) use of aspirin; Z79.899 Other long term (current) drug therapy; Z82.49 Family history of ischemic heart disease and other diseases of the circulatory system; Z88.5 Allergy status to narcotic agent; Z88.0 Allergy status to penicillin; Z91.030 Bee allergy status
CPT/HCPCS: 36415; 71020; 80048; 82140; 82962; 83880; 84484; 85007; 85025; 85610; 86140; 87040; 87086; 93005; 93010; 93458; 94640; 96374; 96375; C1894; J0360; J1644; J1940; J1956; J2250; J2405; J2920; J2930; J3010; J7040; Q9967

== ENCOUNTER 2018-01-22 15:55 | Outpatient (CLI) | payer MEDICAID ==
--- NOTE | 2018-01-22 20:27 | XRay Report ---
FINAL REPORT EXAM: XR CHEST ROUTINE 2V HISTORY: DYSPNEA TECHNIQUE: PA and lateral views of the chest PRIORS: None. FINDINGS: Lines, tubes, and devices: N/A Lungs and pleura: Trachea is normal in position. Lungs are clear of infiltrate, pleural effusion, vascular congestion, or pneumothorax. Cardiomediastinal silhouette: Cardiac and mediastinal silhouettes are unremarkable. Other: Bony structures demonstrate remote fractures involving the posterior left 8th and 9th ribs. IMPRESSION: No acute cardiopulmonary process seen.
== END 2018-01-22 15:56 | disposition home or self-care (01) ==
LOC: XRAY 15:55
PROVIDERS: ATTEND Internal Medicine Nephrology
DX: R06.00 Dyspnea, unspecified (principal); I13.0 Hypertensive heart and chronic kidney disease with heart failure and stage 1 through stage 4 chronic kidney disease, or unspecified chronic kidney disease; N18.9 Chronic kidney disease, unspecified; I50.43 Acute on chronic combined systolic (congestive) and diastolic (congestive) heart failure; F41.9 Anxiety disorder, unspecified; D72.829 Elevated white blood cell count, unspecified; Z91.19 Patient's noncompliance with other medical treatment and regimen
CPT/HCPCS: 71046

== ENCOUNTER 2018-10-24 12:41 | Outpatient (CLI) | payer MEDICAID ==
--- NOTE | 2018-10-24 14:36 | Ultrasound Report ---
ULTRASOUND RENAL BILATERAL HISTORY: Chronic kidney disease, stage III. TECHNIQUE: transabdominal ultrasound with color Doppler interrogation. FINDINGS: The right kidney measures 10.6cm. Right renal cortex: 1.1cm. The left kidney measures 10.6cm. Left renal cortex: 1.2cm. Scans of the kidneys show normal renal contours. There is normal central calyceal clustering and good preservation of the cortical thickness. There is no evidence of mass or hydronephrosis. The views of the bladder and the region of the ureters appear normal. IMPRESSION: Unremarkable renal ultrasound. No significant change since 03/10/17.
== END 2018-10-24 12:42 | disposition home or self-care (01) ==
LOC: US 12:41
PROVIDERS: ATTEND Internal Medicine Nephrology
DX: I13.0 Hypertensive heart and chronic kidney disease with heart failure and stage 1 through stage 4 chronic kidney disease, or unspecified chronic kidney disease (principal); I50.9 Heart failure, unspecified; N18.3 Chronic kidney disease, stage 3 (moderate)
CPT/HCPCS: 76770

== ENCOUNTER 2019-03-02 11:49 | Inpatient (IN) | payer MEDICAID ==
[2019-03-02 12:34] LABS: Basophils # (Auto) 0.1 K/mm3 (0.0-0.1); Basophils % (Auto) 1.5 % (0.0-1.8); Eosinophils # (Auto) 0.8 K/mm3 (0.0-0.4); Eosinophils % (Auto) 8.5 % (0.0-4.3); Hematocrit 41.4 % (35.5-45.6); Hemoglobin 13.6 gm/dl (11.8-15.2); Lymphocytes # (Auto) 1.5 K/mm3 (1.2-5.4); Lymphocytes % (Auto) 16.3 % (13.4-35.0); Mean Corpuscular HGB Conc 33 % (32-34); Mean Corpuscular Volume 91 fl (84-94); Monocytes # (Auto) 0.9 K/mm3 (0.0-0.8); Monocytes % (Auto) 9.6 % (0.0-7.3); Platelet Count 202 K/mm3 (140-440); Red Blood Count 4.54 M/mm3 (3.65-5.03); Red Cell Distribution Width 15.4 % (13.2-15.2)
[2019-03-02 12:57] LABS: BUN/Creatinine Ratio 19; Blood Urea Nitrogen 33 mg/dL (9-20); Hemolysis Index 4
--- NOTE | 2019-03-02 13:05 | XRay Report ---
CHEST 1 VIEW 03/02/2019 12:23 PM INDICATION / CLINICAL INFORMATION: sob. COMPARISON: 2 views of the chest from 01/22/2018. FINDINGS: SUPPORT DEVICES: None. HEART / MEDIASTINUM: No significant abnormality. LUNGS / PLEURA: No significant pulmonary or pleural abnormality. No pneumothorax. ADDITIONAL FINDINGS: No significant additional findings. IMPRESSION: No acute abnormality of the chest. Signer Name: Alexandru Gonzales MD Signed: 03/02/2019 1:01 PM Workstation Name: [id number]
--- NOTE | 2019-03-02 13:17 | Emergency Department Report ---
ED General Adult HPI - General Chief complaint: Weakness Stated complaint: WEAKNESS Time Seen by Provider: 03/02/19 12:06 Source: patient, EMS Mode of arrival: Ambulatory Limitations: No Limitations - History of Present Illness Initial comments: 63-year-old male with history of CHF, CKD presents to the ED. Patient states he received a call from his multiple drum sander helper after having an echo done yesterday patient states he was told that he has an EF of 10%, and also that his kidneys are failing. Patient has known history of chronic kidney disease. Patient states his multiple drum sander helper did not mention whether or not his potassium was elevated. Medical Claims Specialist: Dr Alatorre Utilities Manager: Dr Tapia -: days(s) (1) Severity scale (0 -10): 0 Associated Symptoms: nausea/vomiting, shortness of breath. denies: chest pain - Related Data Home Medications Medication Instructions Recorded Confirmed Last Taken Carvedilol 6.25 mg PO BID 03/02/19 03/02/19 03/02/19 09:00 Losartan 25 mg PO QDAY 03/02/19 03/02/19 03/02/19 09:00 Previous Rx's Medication Instructions Recorded Last Taken Type Gabapentin [Neurontin] 100 mg PO Q8H #90 capsule 02/18/17 03/02/19 09:00 Rx Aspirin EC [Halfprin EC] 81 mg PO QDAY #100 tablet. 03/12/17 03/02/19 09:00 Rx ALBUTEROL Inhaler (OR & NICU) 2 puff IH QID PRN #2 inha 04/12/17 03/02/19 09:00 Rx [ProAir HFA Inhaler] DOXYCYCLINE Hyclate [Vibramycin 100 mg PO BID #10 capsule 04/12/17 Unknown Rx CAP] Furosemide [Lasix TAB] 40 mg PO DAILY@0600 #30 tablet 04/12/17 03/02/19 09:00 Rx Metoprolol [Lopressor TAB] 25 mg PO TID #60 tablet 04/12/17 03/02/19 09:00 Rx Prednisone [predniSONE 10 mg 10 mg PO .TAPER #1 tab.ds.pk 04/12/17 03/02/19 09:00 Rx (6-Day Pack, 21 Tabs)] Allergies Allergy/AdvReac Type Severity Reaction Status Date / Time Penicillins Allergy Hives Verified 02/15/17 14:05 venom-honey bee Allergy Hives Verified 02/15/17 14:05 [bee venom (honey bee)] morphine AdvReac Unknown Verified 02/15/17 14:05 ED Review of Systems ROS: Stated complaint: WEAKNESS Other details as noted in HPI Comment: All other systems reviewed and negative Constitutional: denies: chills, fever Respiratory: shortness of breath, SOB with exertion Cardiovascular: denies: chest pain Gastrointestinal: nausea. denies: vomiting ED Past Medical Hx - Past Medical History Hx Hypertension: Yes Hx Congestive Heart Failure: Yes Hx Diabetes: No Hx Kidney Stones: Yes Hx Asthma: No Hx COPD: No Additional medical history: MITRAL VALVE REGURGITATION - Surgical History Additional Surgical History: for broken bones - Social History Smoking Status: Never Smoker Substance Use Type: None - Medications Home Medications: Home Medications Medication Instructions Recorded Confirmed Last Taken Type Gabapentin [Neurontin] 100 mg PO Q8H #90 capsule 02/18/17 03/02/19 03/02/19 09:00 Rx Aspirin EC [Halfprin EC] 81 mg PO QDAY #100 tablet. 03/12/17 03/02/19 03/02/19 09:00 Rx ALBUTEROL Inhaler (OR & NICU) 2 puff IH QID PRN #2 inha 04/12/17 03/02/19 03/02/19 09:00 Rx [ProAir HFA Inhaler] DOXYCYCLINE Hyclate [Vibramycin 100 mg PO BID #10 capsule 04/12/17 03/02/19 Unknown Rx CAP] Furosemide [Lasix TAB] 40 mg PO DAILY@0600 #30 tablet 04/12/17 03/02/19 03/02/19 09:00 Rx Metoprolol [Lopressor TAB] 25 mg PO TID #60 tablet 04/12/17 03/02/19 03/02/19 09:00 Rx Prednisone [predniSONE 10 mg 10 mg PO .TAPER #1 tab.ds.pk 04/12/17 03/02/19 03/02/19 09:00 Rx (6-Day Pack, 21 Tabs)] Carvedilol 6.25 mg PO BID 03/02/19 03/02/19 03/02/19 09:00 History Losartan 25 mg PO QDAY 03/02/19 03/02/19 03/02/19 09:00 History ED Physical Exam - General Limitations: No Limitations General appearance: alert, in no apparent distress - Head Head exam: Present: atraumatic, normocephalic - Eye Eye exam: Present: normal appearance, PERRL, EOMI - ENT ENT exam: Present: mucous membranes moist - Neck Neck exam: Present: normal inspection - Respiratory Respiratory exam: Present: normal lung sounds bilaterally. Absent: respiratory distress - Cardiovascular Cardiovascular Exam: Present: regular rate, normal rhythm - GI/Abdominal GI/Abdominal exam: Absent: distended - Extremities Exam Extremities exam: Present: pedal edema - Neurological Exam Neurological exam: Present: alert, oriented X3 - Psychiatric Psychiatric exam: Present: normal affect, normal mood - Skin Skin exam: Present: warm, dry ED Course Vital Signs 03/02/19 03/02/19 11:59 14:54 Temperature 98.2 F Pulse Rate 99 H 92 H Respiratory 21 15 Rate Blood Pressure 131/92 Blood Pressure 125/61 [Left] O2 Sat by Pulse 97 98 Oximetry - Consultations Consultation #1: 03/02/19 13:41 Spoke w/ Dr Archibald, states they will see pt 03/02/19 13:41 ED Medical Decision Making - Lab Data Result diagrams: 03/03/19 07:54 03/03/19 07:54 - EKG Data -: EKG Interpreted by Or EKG shows normal: sinus rhythm, axis, intervals, QRS complexes Rate: normal - EKG Data Interpretation: other (lateral T wave inversions) - Radiology Data Radiology results: report reviewed, image reviewed - Medical Decision Making 63 yo M w/ cardiomyopathy, told that he has an EF of 10%. Vitals are stable. Labs unremarkable, except for known chronic renal insufficiency. Potassium is normal. CXR negative for pulm edema or effusions. Spoke to multiple drum sander helper, will see the patient. Hospitalist, Dr Galvez, to admit. - Differential Diagnosis CHF, ACS, pulm edema Critical care attestation.: If time is entered above; I have spent that time in minutes in the direct care of this critically ill patient, excluding procedure time. ED Disposition Clinical Impression: Cardiomyopathy, CKD (chronic kidney disease) Disposition: OP ADMIT IP TO THIS HOSP Is pt being admited?: Yes Condition: Stable Time of Disposition: 13:42
--- NOTE | 2019-03-02 14:01 | History and Physical Report ---
History of Present Illness Chief complaint: My heart is weak, and my doctor told me to come in History of present illness: 63 YO Male with Systolic CHF(EF 10%), Mitral Valve Regurgitation, Nephrolithiasis presents to ED for evaluation. Pt states that he has experienced leg edema, shortness of breath over the past week. Pt was seen and evaluated by his PCP and was told to seek further care and evaluation at [facility]. Pt also acknowledges Orthopnea/PND, Decreased exercise tolerance, and subjective feeling of bloating and weight gain over the past 2 weeks. Pt states that he was told by his fan mail clerk that his Echo done this week showed and EF of 10%. EMS notified, and upon arrival the patient was found to be in distress. Pt transported to [facility]. Pt seen and evaluated in ED and found to have CHF Decompe nsation, JOHN. Pt admitted to telemetry. Cardiology consulted in ED. Nephrology consulted in ED. No prior admission for review. All listed medication reconciled at time of admission. Pt denies fever, chills, CP, palpitations, NVD, BRBPR, Trauma, Skin Rash, Syncope, Productive cough, or recent ill contacts. Past History Past Medical History: heart failure, other (MVR, Nephrolithiasis) Past Surgical History: Other (Ortho surgery) Social history: single. denies: smoking, alcohol abuse, prescription drug abuse Family history: hypertension Medications and Allergies Allergies Allergy/AdvReac Type Severity Reaction Status Date / Time Penicillins Allergy Hives Verified 02/15/17 14:05 venom-honey bee Allergy Hives Verified 02/15/17 14:05 [bee venom (honey bee)] morphine AdvReac Unknown Verified 02/15/17 14:05 Home Medications Medication Instructions Recorded Confirmed Last Taken Type Gabapentin [Neurontin] 100 mg PO Q8H #90 capsule 02/18/17 04/10/17 1 Day Ago Rx ~04/09/17 Aspirin EC [Halfprin EC] 81 mg PO QDAY #100 tablet. 03/12/17 04/10/17 1 Day Ago Rx ~04/09/17 Potassium Chloride [K-Dur] 8 meq PO QDAY #30 tablet 03/12/17 04/10/17 1 Day Ago Rx ~04/09/17 ALBUTEROL Inhaler (OR & NICU) 2 puff IH QID PRN #2 inha 04/12/17 Unknown Rx [ProAir HFA Inhaler] DOXYCYCLINE Hyclate [Vibramycin 100 mg PO BID #10 capsule 04/12/17 Unknown Rx CAP] Furosemide [Lasix TAB] 40 mg PO DAILY@0600 #30 tablet 04/12/17 Unknown Rx Metoprolol [Lopressor TAB] 25 mg PO TID #60 tablet 04/12/17 Unknown Rx Prednisone [predniSONE 10 mg 10 mg PO .TAPER #1 tab.ds.pk 04/12/17 Unknown Rx (6-Day Pack, 21 Tabs)] levoFLOXacin [Levaquin TAB] 500 mg PO Q24HR #5 tablet 04/12/17 Unknown Rx Review of Systems Constitutional: weight gain, weakness, no weight loss, no fever, no chills, no sweats Ears, nose, mouth and throat: no ear pain, no ear discharge, no tinnitis, no decreased hearing, no nose pain Cardiovascular: orthopnea, edema, shortness of breath, dyspnea on exertion, paroxysmal nocturnal dyspnea, decreased exercise tolerance, no chest pain, no r apid/irregular heart beat, no claudication Respiratory: no cough, no cough with sputum, no excessive sputum, no hemoptysis Gastrointestinal: no nausea, no vomiting, no diarrhea, no constipation Genitourinary Male: no hematuria, no flank pain, no discharge, no urinary frequency, no urinary hesitancy Rectal: no pain, no incontinence, no bleeding Musculoskeletal: no neck stiffness, no neck pain, no shooting arm pain, no arm numbness/tingling, no low back pain, no shooting leg pain Integumentary: no rash, no pruritis, no redness, no sores, no wounds Neurological: no transient paralysis, no paralysis, no weakness, no parathesias, no numbness, no tingling, no seizures Psychiatric: no anxiety, no memory loss, no change in sleep habits, no sleep disturbances, no insomnia, no hypersomnia, no change in appetite Endocrine: no cold intolerance, no heat intolerance, no polyphagia, no excessive thirst, no polydipsia, no polyuria, no nocturia Hematologic/Lymphatic: no easy bruising, no easy bleeding, no lymphadenopathy, no lymphedema Allergic/Immunologic: no urticaria, no allergic rhinitis, no wheezing, no persistent infections, no anaphylaxis, no angioedema Exam - Constitutional Vitals: Temp Pulse Resp BP Pulse Ox 98.2 F 99 H 21 131/92 97 03/02/19 11:59 03/02/19 11:59 03/02/19 11:59 03/02/19 11:59 03/02/19 11:59 General appearance: Present: mild distress - EENT Eyes: Present: PERRL ENT: hearing intact, clear oral mucosa - Neck Neck: Present: supple, normal ROM - Respiratory Respiratory effort: normal Respiratory: bilateral: CTA - Cardiovascular Heart Sounds: Present: S1 & S2. Absent: rub, click - Extremities Extremities: pulses symmetrical Extremity abnormal: edema Peripheral Pulses: within normal limits - Abdominal General gastrointestinal: Present: soft, non-tender, non-distended, normal bowel sounds Male genitourinary: Present: normal - Integumentary Integumentary: Present: clear, warm, dry - Musculoskeletal Musculoskeletal: gait normal, strength equal bilaterally - Psychiatric Psychiatric: appropriate mood/affect, intact judgment & insight - Neurologic Neurologic: CNII-XII intact, moves all extremities Results - Labs CBC & Chem 7: 03/02/19 12:23 03/02/19 12:23 Labs: Abnormal lab results 03/02/19 03/02/19 Range/Units 12:23 12:23 RDW 15.4 H (13.2-15.2) % [place]arro % (Auto) 9.6 H (0.0-7.3) % Eos % (Auto) 8.5 H (0.0-4.3) % [place] # 0.9 H (0.0-0.8) K/mm3 Eos # 0.8 H (0.0-0.4) K/mm3 BUN 33 H (9-20) mg/dL Creatinine 1.7 H (0.8-1.5) mg/dL Glucose 123 H (75-100) mg/dL NT-Pro-B Natriuret Pep 6701 H (0-900) pg/mL Assessment and Plan - Patient Problems (1) Acute CHF (congestive heart failure) Current Visit: No Status: Acute Qualifiers: Heart failure type: systolic Qualified Code(s): I50.21 - Acute systolic (congestive) heart failure Plan to address problem: Admit to telemetry, Echo resulted reported by cardiology, BNP, Cardiology consulted in ED, Strict I/O, daily weight, Afterload reduction, diuresis, chest x ray, thyroid panel, magnesium level, pulse oximetry, supplemental oxygen. (2) Acute kidney injury Current Visit: No Status: Acute Plan to address problem: Nephrology consulted in ED, Urine electrolytes, monitor uop q shift, renal ultrasound (3) HTN (hypertension) Current Visit: Yes Status: Acute Qualifiers: Hypertension type: essential hypertension Qualified Code(s): I10 - Essential (primary) hypertension Plan to address problem: Monitor bp q shift, supportive care, monitor BP q shift. (4) DVT prophylaxis Current Visit: Yes Status: Acute Plan to address problem: SCD to BLE while in bed, supportive care.
[2019-03-02] MEDS ORDERED: PROVENTIL IH PRN (14:04)
[2019-03-02] MEDS ORDERED: ZOFRAN IV PRN (14:04)
[2019-03-02] MEDS ORDERED: SODIUM CHLORIDE FLUSH SYRINGE 10 ML IV PRN (14:04)
[2019-03-02] MEDS ORDERED: BOOSTRIX IM ONE (14:51)
[2019-03-02] MEDS: TYLENOL PO PRN (15:08)
[2019-03-02] MEDS: NEURONTIN PO SCH ×2 (16:51→22:02)
[2019-03-02] MEDS: LASIX IV SCH (18:09)
[2019-03-02] MEDS ORDERED: LOPRESSOR PO SCH (20:00)
[2019-03-02] MEDS: SODIUM CHLORIDE FLUSH SYRINGE 10 ML IV SCH (21:47)
[2019-03-02] MEDS: COREG PO SCH (22:11)
[2019-03-03] MEDS: LASIX IV SCH ×2 (07:00→19:44)
[2019-03-03] MEDS: NEURONTIN PO SCH ×3 (07:35→22:57)
--- NOTE | 2019-03-03 08:03 | Ultrasound Report ---
Renal ultrasound. 03/03/2019. HISTORY: Acute renal insufficiency. FINDINGS: Right kidney measures 10.3 cm. Left kidney measures 11 cm. A cyst at the lower pole of the left kidney laterally measures 1 cm. Cortical thickness and echogenicity is normal. Negative for mass or obstruction. The bladder is distended with urine. IMPRESSION: 1. Negative for obstruction. 2. Small benign-appearing renal cysts. 3. Stented bladder. Signer Name: Marko Christina MD Signed: 03/03/2019 7:58 AM Workstation Name: [id number]
[2019-03-03 08:21] LABS: Basophils # (Auto) 0.2 K/mm3 (0.0-0.1); Hematocrit 42.3 % (35.5-45.6); Lymphocytes # (Auto) 1.5 K/mm3 (1.2-5.4); Lymphocytes % (Auto) 14.8 % (13.4-35.0); Mean Corpuscular HGB Conc 33 % (32-34); Mean Corpuscular Volume 91 fl (84-94); Monocytes # (Auto) 0.7 K/mm3 (0.0-0.8); Monocytes % (Auto) 7.1 % (0.0-7.3); Platelet Count 199 K/mm3 (140-440); Red Blood Count 4.64 M/mm3 (3.65-5.03); Red Cell Distribution Width 15.1 % (13.2-15.2)
[2019-03-03 08:45] LABS: Albumin 3.4 g/dL (3.9-5); Calcium 9.1 mg/dL (8.4-10.2)
[2019-03-03] MEDS ORDERED: K-DUR PO SCH (10:00)
[2019-03-03] MEDS: COREG PO SCH ×2 (11:31→22:15)
[2019-03-03] MEDS: HALFPRIN EC PO SCH (11:31)
[2019-03-03] MEDS: SODIUM CHLORIDE FLUSH SYRINGE 10 ML IV SCH ×2 (11:32→22:17)
--- NOTE | 2019-03-03 12:44 | Consultation ---
History of Present Illness Consult date: 03/03/19 Requesting physician: SHANNON PATE Consult reason: congestive heart failure History of present illness: Mr. Hammond is a 63 y/o male who presented to [facility] with SOB and BLE edema on on the advice of his senior national account manager, Dr. Alatorre. He has a history of chronic HFrEF (EF of 10-15 percent), nonischemic cardiomyopathy, MV regurgitation, stage 3 CKD and hypertension. He is a poor historian, but states that his losartan and Lasix were recently discontinued by his cloth drier; however, on the advice of Dr. Alatorre, he resumed them at the end of January. He was apparently instructed to discontinue these medications again (unclear by whom), which brought on his latest symptoms. A CXR was negative for acute findings. BNP [place] elevated [place] 6701. An echocardiogram on 02/28/19 found an EF of 10 to 15 percent, dilation of all chambers, moderate AR, moderate to severe TR and RV hypokinesis. A stress test in 2014 was negative for ischemia and infarct. Past History Past Medical History: heart failure, hypertension, other (CKD, MVR, NICM) Past Surgical History: Other (Ortho surgery) Social history: single. denies: smoking, alcohol abuse, prescription drug abuse Family history: hypertension Medications and Allergies Allergies Allergy/AdvReac Type Severity Reaction Status Date / Time Penicillins Allergy Hives Verified 02/15/17 14:05 venom-honey bee Allergy Hives Verified 02/15/17 14:05 [bee venom (honey bee)] morphine AdvReac Unknown Verified 02/15/17 14:05 Home Medications Medication Instructions Recorded Confirmed Last Taken Type Gabapentin [Neurontin] 100 mg PO Q8H #90 capsule 02/18/17 03/02/19 03/02/19 09:00 Rx Aspirin EC [Halfprin EC] 81 mg PO QDAY #100 tablet. 03/12/17 03/02/19 03/02/19 09:00 Rx ALBUTEROL Inhaler (OR & NICU) 2 puff IH QID PRN #2 inha 04/12/17 03/02/19 03/02/19 09:00 Rx [ProAir HFA Inhaler] DOXYCYCLINE Hyclate [Vibramycin 100 mg PO BID #10 capsule 04/12/17 03/02/19 Unknown Rx CAP] Furosemide [Lasix TAB] 40 mg PO DAILY@0600 #30 tablet 04/12/17 03/02/19 03/02/19 09:00 Rx Metoprolol [Lopressor TAB] 25 mg PO TID #60 tablet 04/12/17 03/02/19 03/02/19 09:00 Rx Prednisone [predniSONE 10 mg 10 mg PO .TAPER #1 tab.ds.pk 04/12/17 03/02/19 03/02/19 09:00 Rx (6-Day Pack, 21 Tabs)] Carvedilol 6.25 mg PO BID 03/02/19 03/02/19 03/02/19 09:00 History Losartan 25 mg PO QDAY 03/02/19 03/02/19 03/02/19 09:00 History Active Meds: Active Medications Acetaminophen (Tylenol) 650 mg PO Q4H PRN PRN Reason: Pain MILD(1-3)/Fever >100.5/RUIZ Last Admin: 03/02/19 15:08 Dose: 650 mg Documented by: Albuterol (Proventil) 2.5 mg IH Q4HRT PRN PRN Reason: Shortness Of Breath Aspirin (Halfprin Ec) 81 mg PO QDAY [facility] Last Admin: 03/03/19 11:31 Dose: 81 mg Documented by: Carvedilol (Coreg) 6.25 mg PO BID [facility] Last Admin: 03/03/19 11:31 Dose: 6.25 mg Documented by: Furosemide (Lasix) 20 mg IV BID@0600,1800 [facility] Last Admin: 03/03/19 07:00 Dose: 20 mg Documented by: Gabapentin (Neurontin) 100 mg PO Q8H [facility] Last Admin: 03/03/19 07:35 Dose: Not Given Documented by: Ondansetron HCl (Zofran) 4 mg IV Q8H PRN PRN Reason: Nausea And Vomiting Sodium Chloride (Sodium Chloride Flush Syringe 10 Ml) 10 ml IV BID [facility] Last Admin: 03/03/19 11:32 Dose: 10 ml Documented by: Sodium Chloride (Sodium Chloride Flush Syringe 10 Ml) 10 ml IV PRN PRN PRN Reason: LINE FLUSH Review of Systems All systems: negative Physical Examination Last Vital Signs Temp 98.5 F 03/03/19 07:28 Pulse 78 03/03/19 11:31 Resp 18 03/03/19 07:28 BP 137/98 03/03/19 07:28 Pulse Ox 99 03/03/19 10:00 General appearance: no acute distress HEENT: Positive: PERRL Neck: Positive: neck supple Cardiac: Positive: Reg Rate and Rhythm Lungs: Positive: Normal Exam Neuro: Positive: Grossly Intact Abdomen: Positive: Unremarkable Male genitourinary: Positive: deferred Skin: Positive: Rash (Rash with open sores noted on arms and legs) Musculoskeletal: Normal Range of Motion Extremities: Present: normal Results 03/03/19 07:54 03/03/19 07:54 Cardiac Enzymes 03/03/19 Range/Units 07:54 AST 26 (5-40) units/L CBC 03/03/19 Range/Units 07:54 WBC 9.9 (4.5-11.0) K/mm3 RBC 4.64 (3.65-5.03) M/mm3 Hgb 14.0 (11.8-15.2) gm/dl Hct 42.3 (35.5-45.6) % Plt Count 199 (140-440) K/mm3 Lymph # 1.5 (1.2-5.4) K/mm3 [place] # 0.7 (0.0-0.8) K/mm3 Eos # 1.0 H (0.0-0.4) K/mm3 Baso # 0.2 H (0.0-0.1) K/mm3 Comprehensive Metabolic Panel 03/02/19 03/03/19 Range/Units 12:23 07:54 Sodium 141 139 (137-145) mmol/L Potassium 4.2 4.9 (3.6-5.0) mmol/L Chloride 101.1 99.6 (98-107) mmol/L Carbon Dioxide 27 28 (22-30) mmol/L BUN 33 H 33 H (9-20) mg/dL Creatinine 1.7 H 1.7 H (0.8-1.5) mg/dL Glucose 123 H 118 H (75-100) mg/dL Calcium 9.0 9.1 (8.4-10.2) mg/dL AST 26 (5-40) units/L ALT 25 (7-56) units/L Alkaline Phosphatase 64 (35-129) units/L Total Protein 6.5 (6.3-8.2) g/dL Albumin 3.4 L (3.9-5) g/dL - Imaging and Cardiology Stress echo: report reviewed (2014: negative for ischemia and infarct) Echo: report reviewed (02/28/19: EF 10-15%, mod AR, mod to sev TR, RV hypokinesis) EKG: report reviewed (SR with LVH and biatrial enlargement) EKG interpretations - EKG Sinus rhythms and dysrhythmias: sinus rhythm Chamber hypertrophy or enlargement: left atrial enlargement, right atrial enlargment, left ventricular hypertro Assessment and Plan Mr. Hammond is a 63 y/o male with a history of chronic HFrEF, nonischemic cardiomyopathy, MVR, CKD and hypertension who presented to [facility] with SOB and BLE edema since . The patient reports he was instructed to discontinue his losartan and Lasix, which brought on his symptoms. His CXR was negative for acute findings and he does not appear volume overloaded on exam. His creatinine appears above his baseline and nephrology has been consulted. We await those recommendations. Will hold losartan and initiate daily Norvasc to optimize blood pressure. He has previously declined an AICD. The patient has been seen in conjunction with Dr. Mason, who agrees with the assessment and plan. - Patient Problems (1) Acute on chronic systolic heart failure Current Visit: No Status: Acute (2) Acute kidney injury superimposed on CKD Current Visit: Yes Status: Acute (3) Valvular regurgitation Current Visit: Yes Status: Chronic (4) HTN (hypertension) Current Visit: Yes Status: Chronic Qualifiers: Hypertension type: essential hypertension Qualified Code(s): I10 - Esse ntial (primary) hypertension (5) Cardiomyopathy Current Visit: Yes Status: Chronic
[2019-03-03] MEDS ORDERED: NORVASC PO SCH (14:00)
--- NOTE | 2019-03-03 14:04 | Consultation ---
History of Present Illness - Reason for Consult Consult date: 03/03/19 acute renal failure, chronic renal failure Requesting physician: CRISPIN SERVIN - History of Present Illness 63 YO Male with Systolic CHF(EF 10%), Mitral Valve Regurgitation, Nephrolithiasis presents to ED for evaluation. Pt states that he has experienced leg edema, shortness of breath over the past week. Pt was seen and evaluated by his PCP and was told to seek further care and evaluation at [facility]. Pt also acknowledges Orthopnea/PND, Decreased exercise tolerance, and subjective feeling of bloating and weight gain over the past 2 weeks. 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 EMS notified, and upon arrival the patient was found to be in distress. Pt transported to [facility]. Pt seen and evaluated in ED and found to have CHF Decompensation, JOHN. Pt admitted to telemetry. Cardiology consulted in ED. Nephrology consulted in ED. No prior admission for review. All listed medication reconciled at time of admission. Pt denies fever, chills, CP, palpitations, NVD, BRBPR, Trauma, Skin Rash, Syncope, Productive cough, or recent ill contacts. Past History Past Medical History: heart failure, other (MVR, Nephrolithiasis) Past Surgical History: Other (Ortho surgery) Social history: single. denies: smoking, alcohol abuse, prescription drug abuse Family history: hypertension Review of Systems Constitutional: weight gain, weakness, no weight loss, no fever, no chills, no sweats Ears, nose, mouth and throat: no ear pain, no ear discharge, no tinnitis, no decreased hearing, no nose pain Cardiovascular: orthopnea, edema, shortness of breath, dyspnea on exertion, paroxysmal nocturnal dyspnea, decreased exercise tolerance, no chest pain, no rapid/irregular heart beat, no claudication Respiratory: no cough, no cough with sputum, no excessive sputum, no hemoptysis Gastrointestinal: no nausea, no vomiting, no diarrhea, no constipation Genitourinary Male: no hematuria, no flank pain, no discharge, no urinary frequency, no urinary hesitancy Rectal: no pain, no incontinence, no bleeding Musculoskeletal: no neck stiffness, no neck pain, no shooting arm pain, no arm numbness/tingling, no low back pain, no shooting leg pain Integumentary: no rash, no pruritis, no redness, no sores, no wounds Neurological: no transient paralysis, no paralysis, no weakness, no parathesias, no numbness, no tingling, no seizures Psychiatric: no anxiety, no memory loss, no change in sleep habits, no sleep disturbances, no insomnia, no hypersomnia, no change in appetite Endocrine: no cold intolerance, no heat intolerance, no polyphagia, no excessive thirst, no polydipsia, no polyuria, no nocturia Hematologic/Lymphatic: no easy bruising, no easy bleeding, no lymphadenopathy, no lymphedema Allergic/Immunologic: no urticaria, no allergic rhinitis, no wheezing, no persistent infections, no anaphylaxis, no angioedema Past History Past Medical History: heart failure, hypertension, other (CKD, MVR, NICM) Past Surgical History: Other (Ortho surgery) Social history: single. denies: smoking, alcohol abuse, prescription drug abuse Family history: hypertension Medications and Allergies Allergies Allergy/AdvReac Type Severity Reaction Status Date / Time Penicillins Allergy Hives Verified 02/15/17 14:05 venom-honey bee Allergy Hives Verified 02/15/17 14:05 [bee venom (honey bee)] morphine AdvReac Unknown Verified 02/15/17 14:05 Home Medications Medication Instructions Recorded Confirmed Last Taken Type Gabapentin [Neurontin] 100 mg PO Q8H #90 capsule 02/18/17 03/02/19 03/02/19 09:00 Rx Aspirin EC [Halfprin EC] 81 mg PO QDAY #100 tablet. 03/12/17 03/02/19 03/02/19 09:00 Rx ALBUTEROL Inhaler (OR & NICU) 2 puff IH QID PRN #2 inha 04/12/17 03/02/19 03/02/19 09:00 Rx [ProAir HFA Inhaler] DOXYCYCLINE Hyclate [Vibramycin 100 mg PO BID #10 capsule 04/12/17 03/02/19 Unknown Rx CAP] Furosemide [Lasix TAB] 40 mg PO DAILY@0600 #30 tablet 04/12/17 03/02/19 03/02/19 09:00 Rx Metoprolol [Lopressor TAB] 25 mg PO TID #60 tablet 04/12/17 03/02/19 03/02/19 09:00 Rx Prednisone [predniSONE 10 mg 10 mg PO .TAPER #1 tab.ds.pk 04/12/17 03/02/19 03/02/19 09:00 Rx (6-Day Pack, 21 Tabs)] Carvedilol 6.25 mg PO BID 03/02/19 03/02/19 03/02/19 09:00 History Losartan 25 mg PO QDAY 03/02/19 03/02/19 03/02/19 09:00 History Active Meds: Active Medications Acetaminophen (Tylenol) 650 mg PO Q4H PRN PRN Reason: Pain MILD(1-3)/Fever >100.5/RUIZ Last Admin: 03/02/19 15:08 Dose: 650 mg Documented by: Albuterol (Proventil) 2.5 mg IH Q4HRT PRN PRN Reason: Shortness Of Breath Amlodipine Besylate (Norvasc) 5 mg PO QDAY [facility] Aspirin (Halfprin Ec) 81 mg PO QDAY [facility] Last Admin: 03/03/19 11:31 Dose: 81 mg Documented by: Carvedilol (Coreg) 6.25 mg PO BID [facility] Last Admin: 03/03/19 11:31 Dose: 6.25 mg Documented by: Furosemide (Lasix) 20 mg IV BID@0600,1800 [facility] Last Admin: 03/03/19 07:00 Dose: 20 mg Documented by: Gabapentin (Neurontin) 100 mg PO Q8H [facility] Last Admin: 03/03/19 07:35 Dose: Not Given Documented by: Ondansetron HCl (Zofran) 4 mg IV Q8H PRN PRN Reason: Nausea And Vomiting Sodium Chloride (Sodium Chloride Flush Syringe 10 Ml) 10 ml IV BID [facility] Last Admin: 03/03/19 11:32 Dose: 10 ml Documented by: Sodium Chloride (Sodium Chloride Flush Syringe 10 Ml) 10 ml IV PRN PRN PRN Reason: LINE FLUSH Exam - Vital Signs Vital signs: Vital Signs Temp Pulse Resp BP Pulse Ox 98.2 F 99 H 21 131/92 97 03/02/19 11:59 03/02/19 11:59 03/02/19 11:59 03/02/19 11:59 03/02/19 11:59 - Physical Exam Narrative exam: General appearance: Present: mild distress - EENT Eyes: Present: PERRL ENT: hearing intact, clear oral mucosa - Neck Neck: Present: supple, normal ROM - Respiratory Respiratory effort: normal Respiratory: bilateral: CTA - Cardiovascular Heart Sounds: Present: S1 & S2. Absent: rub, click - Extremities Extremities: pulses symmetrical Extremity abnormal: edema Peripheral Pulses: within normal limits - Abdominal General gastrointestinal: Present: soft, non-tender, non-distended, normal bowel sounds Male genitourinary: Present: normal - Integumentary Integumentary: Present: clear, warm, dry - Musculoskeletal Musculoskeletal: gait normal, strength equal bilaterally - Psychiatric Psychiatric: appropriate mood/affect, intact judgment & insight - Neurologic Neurologic: CNII-XII intact, moves all extremities Results - Lab Results 03/03/19 07:54 03/03/19 07:54 Most recent lab results WBC 9.9 K/mm3 (4.5-11.0) 03/03/19 07:54 RBC 4.64 M/mm3 (3.65-5.03) 03/03/19 07:54 Hgb 14.0 gm/dl (11.8-15.2) 03/03/19 07:54 Hct 42.3 % (35.5-45.6) 03/03/19 07:54 MCV 91 fl (84-94) 03/03/19 07:54 MCH 30 pg (28-32) 03/03/19 07:54 MCHC 33 % (32-34) 03/03/19 07:54 RDW 15.1 % (13.2-15.2) 03/03/19 07:54 Plt Count 199 K/mm3 (140-440) 03/03/19 07:54 Lymph % (Auto) 14.8 % (13.4-35.0) 03/03/19 07:54 [place] % (Auto) 7.1 % (0.0-7.3) 03/03/19 07:54 Eos % (Auto) 10.0 % (0.0-4.3) H 03/03/19 07:54 Baso % (Auto) 2.0 % (0.0-1.8) H 03/03/19 07:54 Lymph # 1.5 K/mm3 (1.2-5.4) 03/03/19 07:54 [place] # 0.7 K/mm3 (0.0-0.8) 03/03/19 07:54 Eos # 1.0 K/mm3 (0.0-0.4) H 03/03/19 07:54 Baso # 0.2 K/mm3 (0.0-0.1) H 03/03/19 07:54 Seg Neutrophils % 66.1 % (40.0-70.0) 03/03/19 07:54 Seg Neutrophils # 6.5 K/mm3 (1.8-7.7) 03/03/19 07:54 Calcium 9.1 mg/dL (8.4-10.2) 03/03/19 07:54 Magnesium 2.10 mg/dL (1.7-2.3) 03/02/19 23:51 Assessment and Plan Impression: * Acute kidney injury secondary to decreased effective circulatory volume/cardiorenal syndrome --Baseline SCr 1.2-1.4mg/dL in 2017 --Renal u/s unremarkable --UPCR 170mg * Acute systolic heart failure * Cardiomyopathy--ef 15% * HTN * Hx of hyperkalemia Plan: * Renal function noted today, follow daily lytes * no indication or vice president of nursing at this time * Diuresis as tolerated * cards notes reviewed, patient with hyperkalemia with ARB, avoid norvasc with edema * continue diuresis, and base home diuretics on weight and edema * add bidil for bp control if indicated * hold chio and arb for now * Avoid potential nephrotoxins * strict i/os * follow up am lytes
[2019-03-03] MEDS: PROTONIX PO SCH (15:37)
--- NOTE | 2019-03-03 17:10 | Progress Note ---
Assessment and Plan / Acute decompensated systolic CHFrEF 10% Monitor at telemetry, Cardiology consulted in ED, Strict I/O, daily weight, Afterload reduction, diuresis, pulse oximetry, supplemental oxygen. Continue IV diuresis for now, follow further cardiology recommendations / Acute kidney injury Nephrology consulted in ED, monitor uop q shift, renal ultrasound / HTN (hypertension) Monitor bp q shift, supportive care, monitor BP q shift. / DVT prophylaxis SCD to BLE while in bed, supportive care. Brief history: Mr. Hammond is a 63 y/o male with history of chronic HFrEF (EF of 10- 15 percent), nonischemic cardiomyopathy, MV regurgitation, stage 3 CKD and hypertension who presented to [facility] with SOB and BLE edema on on the advice of his bag tester, Dr. Alatorre. A CXR was negative for acute findings. BNP was elevated to 6701. An echocardiogram on 02/28/19 found an EF of 10 to 15 percent, dilation of all chambers, moderate AR, moderate to severe TR and RV hypokinesis. A stress test in 2014 was negative for ischemia and infarct. Physical exam: GENERAL: Elderly white male lying on bed appeared to be in no discomfort. HEENT: Normocephalic. Atraumatic. No conjunctival congestion or icterus. Patient has moist mucous membranes. NECK: Supple. Trachea midline. CHEST/LUNGS:breathing nonlabored. No wheezes or rhonchi. + Bibasilar crackles HEART/CARDIOVASCULAR: Regular in rate and rhythm. S1 and S2 positive. ABDOMEN: Abdomen is soft, nontender. Patient has normal bowel sounds. SKIN: There is no rash. Warm and dry. NEURO: No focal motor deficit. Follows command. MUSCULOSKELETAL: No joint effusion or tenderness. EXTRIMITY: + edema, no cyanosis or clubbing. PSYCH: Cooperative. Subjective Date of service: 03/03/19 Interval history: Patient seen and examined. Medical records and medication list reviewed. No acute event overnight noted by the RN. Patient denies any chest pain , complains of difficulty breathing on minimal exertion. Patient is tolerating diet. Discussed plan of care at bedside with patient. Objective - Constitutional Vitals: Vital Signs - 12hr 03/03/19 03/03/19 03/03/19 06:00 07:28 10:00 Temperature 98.5 F Pulse Rate 89 89 Pulse Rate [ Apical] Respiratory 18 Rate Blood Pressure 137/98 O2 Sat by Pulse 98 99 Oximetry 03/03/19 03/03/19 03/03/19 11:31 12:36 13:09 Temperature 98.3 F Pulse Rate 78 99 H Pulse Rate [ 90 Apical] Respiratory 18 Rate Blood Pressure 136/103 O2 Sat by Pulse 98 98 Oximetry 03/03/19 16:16 Temperature 98.1 F Pulse Rate 92 H Pulse Rate [ Apical] Respiratory 18 Rate Blood Pressure 139/98 O2 Sat by Pulse 97 Oximetry - Labs CBC & Chem 7: 03/03/19 07:54 03/03/19 07:54 Labs: Abnormal lab results 03/03/19 03/03/19 Range/Units 07:54 07:54 Eos % (Auto) 10.0 H (0.0-4.3) % Baso % (Auto) 2.0 H (0.0-1.8) % Eos # 1.0 H (0.0-0.4) K/mm3 Baso # 0.2 H (0.0-0.1) K/mm3 BUN 33 H (9-20) mg/dL Creatinine 1.7 H (0.8-1.5) mg/dL Glucose 118 H (75-100) mg/dL Albumin 3.4 L (3.9-5) g/dL
[2019-03-03] MEDS: TYLENOL PO PRN (22:50)
[2019-03-04] MEDS: NEURONTIN PO SCH ×2 (06:40→14:36)
[2019-03-04] MEDS: LASIX IV SCH ×2 (06:40→18:00)
[2019-03-04 08:08] LABS: Calcium 8.9 mg/dL (8.4-10.2)
[2019-03-04] MEDS: SODIUM CHLORIDE FLUSH SYRINGE 10 ML IV SCH (09:38)
[2019-03-04] MEDS: HALFPRIN EC PO SCH (09:39)
[2019-03-04] MEDS: COREG PO SCH (09:39)
[2019-03-04] MEDS: PROTONIX PO SCH (09:40)
--- NOTE | 2019-03-04 11:14 | Progress Note ---
Assessment and Plan - Patient Problems (1) Acute kidney injury superimposed on CKD Current Visit: Yes Status: Acute Plan to address problem: Acute kidney injury superimposed on CKD - current creatinine 1.9 -worsening with diuresis despite subjective dysnea continue cautious diuresis. (2) Acute on chronic HFrEF (heart failure with reduced ejection fraction) Current Visit: Yes Status: Acute Plan to address problem: Acute on chronic CHF EF : 10% I reviewed CXR without overt edema continue diuresis. (3) HTN (hypertension) Current Visit: Yes Status: Chronic Qualifiers: Hypertension type: essential hypertension Qualified Code(s): I10 - Essential (primary) hypertension Plan to address problem: HTN: controlled continue current medications. (4) Pulmonary hypertension Current Visit: No Status: Chronic Plan to address problem: Pulmonary HTN in the setting of valuvular abn and CHF continue diuresis. Subjective Interval history: 63 year old with congestive heart failure EF: 10% , nephrolithiaisis , CKD admitted with orthopnea and PND symptoms Patient seen today stil complaints of orthopnea /PND. Objective - Vital Signs Vital signs: Vital Signs - 12hr 03/04/19 03/04/19 03/04/19 00:46 00:48 05:46 Temperature 97.4 F L Pulse Rate 94 H Respiratory 18 18 Rate Blood Pressure 131/97 140/98 Blood Pressure [Left] O2 Sat by Pulse 97 Oximetry 03/04/19 03/04/19 03/04/19 05:47 05:57 06:00 Temperature 97.5 F L Pulse Rate 94 H 94 H 96 H Respiratory 18 18 Rate Blood Pressure Blood Pressure 140/98 140/98 [Left] O2 Sat by Pulse 100 99 Oximetry 03/04/19 03/04/19 07:39 09:39 Temperature 97.4 F L Pulse Rate 83 83 Respiratory 14 Rate Blood Pressure 117/73 117/73 Blood Pressure [Left] O2 Sat by Pulse 97 Oximetry - General Appearance General appearance: well-developed, well-nourished EENT: ATNC, PERRL, mucous membranes moist Neck: no JVD Respiratory: Present: Decreased Breath Sounds Cardiology: regular, S1S2 Gastrointestinal: normal, normoactive bowel sounds Integumentary: rash Neurologic: alert and oriented x3, CN 3-12 intact Psychiatric: mood/affect appropriate - Lab 03/03/19 07:54 08/26/19 06:49 Most recent lab results Calcium 8.9 mg/dL (8.4-10.2) 03/04/19 06:49 Magnesium 2.10 mg/dL (1.7-2.3) 03/02/19 23:51 Medications & Allergies - Medications Allergies/Adverse Reactions: Allergies Penicillins Allergy (Verified 02/15/17 14:05) Hives venom-honey bee [bee venom (honey bee)] Allergy (Verified 02/15/17 14:05) Hives morphine Adverse Reaction (Verified 02/15/17 14:05) Unknown Home Medications: Home Medications Medication Instructions Recorded Confirmed Last Taken Type Gabapentin [Neurontin] 100 mg PO Q8H #90 capsule 02/18/17 03/02/19 03/02/19 09:00 Rx Aspirin EC [Halfprin EC] 81 mg PO QDAY #100 tablet. 03/12/17 03/02/19 03/02/19 09:00 Rx ALBUTEROL Inhaler (OR & NICU) 2 puff IH QID PRN #2 inha 04/12/17 03/02/19 03/02/19 09:00 Rx [ProAir HFA Inhaler] Carvedilol [Coreg] 3.125 mg PO BID #60 tablet 03/04/19 Unknown Rx Furosemide [Lasix TAB] 20 mg PO DAILY@0600 #30 tablet 03/04/19 03/02/19 03/02/19 09:00 Rx Active Medications: Generic Name Dose Route Start Last Admin Trade Name Freq PRN Reason Stop Dose Admin Acetaminophen 650 mg 03/02/19 14:04 03/03/19 22:50 Tylenol PO 650 mg Q4H PRN Administration Pain MILD(1-3)/Fever >100.5/RUIZ Albuterol 2.5 mg 03/02/19 14:04 Proventil IH Q4HRT PRN Shortness Of Breath Aspirin 81 mg 03/03/19 10:00 03/04/19 09:39 Halfprin Ec PO 81 mg QDAY [facility] Administration Carvedilol 6.25 mg 03/02/19 22:00 03/04/19 09:39 Coreg PO 6.25 mg BID [facility] Administration Furosemide 20 mg 03/02/19 18:00 03/04/19 06:40 Lasix IV 20 mg BID@0600,1800 [facility] Administration Gabapentin 100 mg 03/02/19 15:00 03/04/19 06:40 Neurontin PO Not Given Q8H [facility] Ondansetron HCl 4 mg 03/02/19 14:04 Zofran IV Q8H PRN Nausea And Vomiting Pantoprazole Sodium 40 mg 03/03/19 15:00 03/04/19 09:40 Protonix PO 40 mg QDAY [facility] Administration Sodium Chloride 10 ml 03/02/19 22:00 03/04/19 09:38 Sodium Chloride Flush Syringe 10 Ml IV 10 ml BID [facility] Administration Sodium Chloride 10 ml 03/02/19 14:04 Sodium Chloride Flush Syringe 10 Ml IV PRN PRN LINE FLUSH
--- NOTE | 2019-03-04 11:16 | Progress Note ---
Assessment and Plan Currently stable cardiac status. Pt appears to be nearing/at euvolemia. Cont volume optimization per nephrology. His home losartan has been d/c'd in setting of renal insufficiency. Tele reviewed - in SR HR 80s with bouts of NSVT (longest being 11 beats) and a sinus pause noted this morning (4.3 sec) at 7AM. Pt states he was in bed and was in and out of sleep at that time. Cardiac defibrillator (LifeVest or AICD) recommended in setting of NICMP and arrhythmias. Indications, potential risks and benefits of LifeVest and/or AICD reviewed with pt. Pt declines LifeVest or AICD. He reports that he has been offered (and ultimately declined) cardiac defibrillator by his primary sort worker, Dr. Alatorre, several times in the past, too. He reports that he tried wearing a LifeVest a while ago and did not like wearing the vest because it was too heavy. Pt declines AICD and states he "would rather than have anything implanted". Will d/c coreg in setting of pause. Additionally, pt states that he regularly sees Dr. Yost and it has been mentioned that he may benefit from OP sleep study. We agree with this recommendation as VALENTINO could contribute to arrhythmias. Pt may discharge home from cardiology standpoint. At discharge, consider low dose PO lasix (20mg daily) if permitted per nephrology. Recommend follow up in our office with Dr. Alatorre within 3-5 days of hospital discharge ([phone]). Pt verbalizes understanding. The patient has been seen in conjunction with Dr. Toscano who agrees with the assessment and plan of care. - Patient Problems (1) Acute on chronic HFrEF (heart failure with reduced ejection fraction) Current Visit: Yes Status: Acute (2) Nonischemic cardiomyopathy Current Visit: Yes Status: Chronic (3) Acute kidney injury superimposed on CKD Current Visit: Yes Status: Acute (4) HTN (hypertension) Current Visit: Yes Status: Chronic Qualifiers: Hypertension type: essential hypertension Qualified Code(s): I10 - Essential (primary) hypertension (5) Mitral valve regurgitation Current Visit: Yes Status: Chronic (6) Tricuspid valve regurgitation Current Visit: Yes Status: Chronic (7) NSVT (nonsustained ventricular tachycardia) Current Visit: Yes Status: Chronic (8) Sinus pause Current Visit: Yes Status: Acute Subjective Date of service: 03/04/19 Principal diagnosis: HF Interval history: pt sitting up at bedside, states he feels ready to discharge home today. tele reviewed - in SR with bouts of NSVT (longest being 11 beats) and a sinus pause noted this morning (4.3 sec) at 7AM. Pt states he was in bed and was in and out of sleep at that time. Objective Last Vital Signs Temp 97.4 F L 03/04/19 07:39 Pulse 83 03/04/19 09:39 Resp 14 03/04/19 07:39 BP 117/73 03/04/19 09:39 Pulse Ox 97 03/04/19 07:39 - Physical Examination General: No Apparent Distress HEENT: Positive: PERRL Neck: Positive: neck supple Cardiac: Positive: Reg Rate and Rhythm, S1/S2 Lungs: Positive: Decreased Breath Sounds Neuro: Positive: Grossly Intact Abdomen: Positive: Unremarkable Skin: Positive: Rash (Rash with open sores noted on arms and legs) Musculoskeletal: Normal Range of Motion Extremities: Present: normal - Labs and Meds Comprehensive Metabolic Panel 03/04/19 Range/Units 06:49 Sodium 140 (137-145) mmol/L Potassium 4.7 (3.6-5.0) mmol/L Chloride 100.9 (98-107) mmol/L Carbon Dioxide 26 (22-30) mmol/L BUN 38 H (9-20) mg/dL Creatinine 1.9 H (0.8-1.5) mg/dL Glucose 118 H (75-100) mg/dL Calcium 8.9 (8.4-10.2) mg/dL - Imaging and Cardiology EKG: report reviewed (SR with LVH and biatrial enlargement) Stress echo: report reviewed (2014: negative for ischemia and infarct) Echo: report reviewed (02/28/19: EF 10-15%, mod AR, mod to sev TR, RV hypokinesis) - EKG Sinus rhythms and dysrhythmias: sinus rhythm Chamber hypertrophy or enlargement: left atrial enlargement, right atrial enlargment, left ventricular hypertro
[2019-03-04 12:16] VITALS: BP 129/91
--- NOTE | 2019-03-04 15:40 | Discharge Summary ---
Providers - Providers Date of Admission: 03/02/19 14:04 Date of discharge: 03/04/19 Attending physician: AGNIESZKA ZAIDI 03/02/19 13:40 Consult to Physician [CONS] Stat Comment: DR HERLINDA CHUA W/ DR DUKES @1338 Consulting Provider: LO DUKES Physician Instructions: Reason For Exam: heart failure 03/02/19 14:08 Consult to Physician [CONS] Routine Comment: Consulting Provider: WALTER FELIPE Physician Instructions: Reason For Exam: [place] Primary care physician: [employer] Hospitalization Condition: Stable Pertinent studies: CXR: No acute abnormality of the chest. Renal US: 1. Negative for obstruction. 2. Small benign-appearing renal cysts. 3. Stented bladder. Hospital course: Mr. Hammond is a 63 y/o male with history of chronic HFrEF (EF of 10- 15 percent), nonischemic cardiomyopathy, MV regurgitation, stage 3 CKD and hypertension who presented to [facility] with SOB and BLE edema on on the advice of his district leader, Dr. Alatorre. A CXR was negative for acute findings. BNP was elevated to 6701. An echocardiogram on 02/28/19 found an EF of 10 to 15 percent, dilation of all chambers, moderate AR, moderate to severe TR and RV hypokinesis. A stress test in 2014 was negative for ischemia and infarct. Discharge diagnosis and management: / Acute decompensated systolic CHFrEF 10% Monitor at telemetry, Cardiology consulted in ED, Strict I/O, daily weight, Afterload reduction, diuresis, pulse oximetry, supplemental oxygen. Continue IV diuresis for now, follow further cardiology recommendations / Acute kidney injury Nephrology consulted in ED, monitor uop q shift, renal ultrasound / HTN (hypertension) Monitor bp q shift, supportive care, monitor BP q shift. / DVT prophylaxis SCD to BLE while in bed, supportive care. Physical exam: GENERAL: Elderly white male lying on bed appeared to be in no discomfort. HEENT: Normocephalic. Atraumatic. No conjunctival congestion or icterus. Patient has moist mucous membranes. NECK: Supple. Trachea midline. CHEST/LUNGS:breathing nonlabored. No wheezes or rhonchi. + Bibasilar crackles HEART/CARDIOVASCULAR: Regular in rate and rhythm. S1 and S2 positive. ABDOMEN: Abdomen is soft, nontender. Patient has normal bowel sounds. SKIN: There is no rash. Warm and dry. NEURO: No focal motor deficit. Follows command. MUSCULOSKELETAL: No joint effusion or tenderness. EXTRIMITY: + edema, no cyanosis or clubbing. PSYCH: Cooperative. Disposition: DC/TX-06 HOME UNDER HOME HLTH Time spent for discharge: 34 minutes Core Measure Documentation - Palliative Care Palliative Care/ Comfort Measures: Not Applicable - Core Measures Any of the following diagnoses?: none Exam - Constitutional Vitals: Temp Pulse Resp BP Pulse Ox 98.1 F 91 H 16 129/91 99 03/04/19 12:14 03/04/19 14:00 03/04/19 12:14 03/04/19 12:14 03/04/19 12:14 Plan Activity: advance as tolerated Weight Bearing Status: Non-Weight Bearing Diet: low fat, low salt Special Instructions: restrict fluid intake to (1.2 L ), record daily weights, record daily BP diary Follow up with: WALTER FELIPE MD [Staff Physician] - 7 Days PRIMARY CARE, [Primary Care Provider] - 3-5 Days Prescriptions: Carvedilol [Coreg] 3.125 mg PO BID #60 tablet
== END 2019-03-04 18:45 | disposition home health service (06) | DRG 291 ==
LOC: ED 11:49 → 4A 14:04
PROVIDERS: ADMIT Internal Medicine; ATTEND Internal Medicine
PROC: 3E0234Z Introduction of Serum, Toxoid and Vaccine into Muscle, Percutaneous Approach (ICD-10-PCS; principal; 2019-03-02)
DX: I13.0 Hypertensive heart and chronic kidney disease with heart failure and stage 1 through stage 4 chronic kidney disease, or unspecified chronic kidney disease (principal); I50.23 Acute on chronic systolic (congestive) heart failure; N17.9 Acute kidney failure, unspecified; I42.9 Cardiomyopathy, unspecified; N18.3 Chronic kidney disease, stage 3 (moderate); I47.1 Supraventricular tachycardia; I27.20 Pulmonary hypertension, unspecified; Z82.49 Family history of ischemic heart disease and other diseases of the circulatory system; Z23 Encounter for immunization; Z88.0 Allergy status to penicillin; Z88.5 Allergy status to narcotic agent; Z91.030 Bee allergy status; Z79.899 Other long term (current) drug therapy; Z79.82 Long term (current) use of aspirin; Z87.442 Personal history of urinary calculi
CPT/HCPCS: 36415; 71045; 76770; 80048; 80053; 83735; 83880; 84484; 85025; 87116; 90715; 93005; 93010; G0378; J1940

== ENCOUNTER 2019-03-21 14:01 | Inpatient (IN) | payer MEDICAID ==
--- NOTE | 2019-03-21 14:06 | Emergency Department Report ---
Blank Doc - Documentation Documentation: 63-year-old male that presents with SOB, chest pain, and bilateral leg swelling with blisters. This initial assessment/diagnostic orders/clinical plan/treatment(s) is/are subject to change based on patient's health status, clinical progression and re- assessment by fellow clinical providers in the ED. Further treatment and workup at subsequent clinical providers discretion. Patient/guardians urged not to elope from the ED as their condition may be serious if not clinically assessed and managed. Initial orders include: 1- Patient sent to MAIN ED for further evaluation and treatment 2- labs 3- EKG 4- CXR
--- NOTE | 2019-03-21 15:14 | XRay Report ---
CHEST 2 VIEWS INDICATION: Chest Pain. COMPARISON: 03/02/2019 FINDINGS: Support devices: None. Heart: Mild cardiomegaly. Lungs/pleura: No acute air space or interstitial disease. No pneumothorax. Trace right pleural effus ion is identified. Additional findings: None. IMPRESSION: Mild cardiomegaly and trace right pleural effusion. Signer Name: Jackson Ventura Jr, MD Signed: 03/21/2019 3:09 PM Workstation Name: [id number]
[2019-03-21 15:19] LABS: INR 1.36 (0.87-1.13)
[2019-03-21 15:26] LABS: Albumin 3.7 g/dL (3.9-5); Calcium 9.1 mg/dL (8.4-10.2)
[2019-03-21 15:45] LABS: Partial Thromboplastin Time 25.8 Sec. (24.2-36.6)
[2019-03-21 15:59] LABS: Chol/HDL Ratio 3.12 %
[2019-03-21 16:10] LABS: Hematocrit 47.1 % (35.5-45.6); Hemoglobin 14.7 gm/dl (11.8-15.2); Mean Corpuscular HGB Conc 31 % (32-34); Mean Corpuscular Volume 93 fl (84-94); Platelet Count 261 K/mm3 (140-440); Red Blood Count 5.05 M/mm3 (3.65-5.03); Red Cell Distribution Width 15.7 % (13.2-15.2)
[2019-03-21] MEDS ORDERED: LASIX IV ONE (16:59)
--- NOTE | 2019-03-21 17:04 | Emergency Department Report ---
ED Shortness of Breath HPI - General Chief Complaint: Dyspnea/Respdistress Stated Complaint: IQRA/BOTH LEGS SWOLEN Time Seen by Provider: 03/21/19 14:04 Source: patient Mode of arrival: Stretcher Limitations: No Limitations - History of Present Illness Initial Comments: Patient is 63 years old male with history of congestive heart failure ejection fracture of 10-15%. Patient presented to the ER complaining or shortness of breath for the last 4 days. Worse today. Patient stated that he is having some tightness in his chest also. Patient also complaining of bilateral lower extremity swelling and redness. Patient denied any fever or chills. MD Complaint: shortness of breath - Related Data Previous Rx's Medication Instructions Recorded Last Taken Type Gabapentin [Neurontin] 100 mg PO Q8H #90 capsule 02/18/17 03/02/19 09:00 Rx Aspirin EC [Halfprin EC] 81 mg PO QDAY #100 tablet. 03/12/17 03/02/19 09:00 Rx ALBUTEROL Inhaler (OR & NICU) 2 puff IH QID PRN #2 inha 04/12/17 03/02/19 09:00 Rx [ProAir HFA Inhaler] Carvedilol [Coreg] 3.125 mg PO BID #60 tablet 03/04/19 Unknown Rx Furosemide [Lasix TAB] 20 mg PO DAILY@0600 #30 tablet 03/04/19 03/02/19 09:00 Rx Allergies Allergy/AdvReac Type Severity Reaction Status Date / Time Penicillins Allergy Hives Verified 02/15/17 14:05 venom-honey bee Allergy Hives Verified 02/15/17 14:05 [bee venom (honey bee)] morphine AdvReac Unknown Verified 02/15/17 14:05 ED Review of Systems ROS: Stated complaint: IQRA/BOTH LEGS SWOLEN Other details as noted in HPI Comment: All other systems reviewed and negative Constitutional: denies: chills, fever Respiratory: shortness of breath Cardiovascular: chest pain, palpitations. denies: dyspnea on exertion Gastrointestinal: denies: abdominal pain, nausea, vomiting Neurological: denies: headache, weakness, numbness, paresthesias, confusion, abnormal gait ED Past Medical Hx - Past Medical History Hx Hypertension: Yes Hx Congestive Heart Failure: Yes Hx Diabetes: No Hx Kidney Stones: Yes Hx Asthma: No Hx COPD: No Additional medical history: MITRAL VALVE REGURGITATION - Surgical History Additional Surgical History: for broken bones - Social History Smoking Status: Never Smoker Substance Use Type: None - Medications Home Medications: Home Medications Medication Instructions Recorded Confirmed Last Taken Type Gabapentin [Neurontin] 100 mg PO Q8H #90 capsule 02/18/17 03/02/19 03/02/19 09:00 Rx Aspirin EC [Halfprin EC] 81 mg PO QDAY #100 tablet. 03/12/17 03/02/19 03/02/19 09:00 Rx ALBUTEROL Inhaler (OR & NICU) 2 puff IH QID PRN #2 inha 04/12/17 03/02/19 03/02/19 09:00 Rx [ProAir HFA Inhaler] Carvedilol [Coreg] 3.125 mg PO BID #60 tablet 03/04/19 Unknown Rx Furosemide [Lasix TAB] 20 mg PO DAILY@0600 #30 tablet 03/04/19 03/02/19 03/02/19 09:00 Rx ED Physical Exam - General Limitations: No Limitations General appearance: alert, in no apparent distress - Head Head exam: Present: atraumatic, normocephalic, normal inspection - Eye Eye exam: Present: normal appearance, PERRL - ENT ENT exam: Present: normal exam, normal orophraynx, mucous membranes moist - Neck Neck exam: Present: normal inspection, full ROM. Absent: tenderness, meningismus, lymphadenopathy, thyromegaly - Respiratory Respiratory exam: Present: normal lung sounds bilaterally - Cardiovascular Cardiovascular Exam: Present: regular rate, normal rhythm, normal heart sounds - GI/Abdominal GI/Abdominal exam: Present: soft, normal bowel sounds. Absent: distended, tenderness, guarding, rebound, rigid, organomegaly, mass, bruit, pulsatile mass, hernia - Extremities Exam Extremities exam: Present: normal inspection, full ROM, normal capillary refill, pedal edema. Absent: calf tenderness - Back Exam Back exam: Absent: CVA tenderness (R), CVA tenderness (L) - Neurological Exam Neurological exam: Present: alert, oriented X3, CN II-XII intact - Psychiatric Psychiatric exam: Present: normal mood - Skin Skin exam: Present: erythema ED Course Vital Signs 03/21/19 14:05 Temperature 97.6 F Pulse Rate 115 H Respiratory 16 Rate Blood Pressure 150/103 [Left] O2 Sat by Pulse 96 Oximetry ED Medical Decision Making - Lab Data Result diagrams: 03/21/19 14:31 03/21/19 14:31 - EKG Data -: EKG Interpreted by Oh EKG shows normal: sinus rhythm Rate: tachycardia - EKG Data Interpretation: no acute changes - Radiology Data Radiology results: report reviewed Referring Physician: EBENEZER PADILLA Patient Name: SAMSON GREGORIO Date of : 1955 Sex: Male Report Date: 2019-03-21 Report Status: Finalized Findings [facility] [address] [place] [address] XRay Report Signed Patient: SAMSON GREGORIO MR#: [id number] : 1955 Acct:[id number] Age/Sex: 63 / M ADM Date: 03/21/19 Loc: ED Attending Dr: Ordering Physician: EBENEZER PADILLA NP Date of Service: 03/21/19 Procedure(s): XR chest routine 2V Accession Number(s): [id number] cc: EBENEZER PADILLA NP Fluoro Time In Minutes: CHEST 2 VIEWS INDICATION: Chest Pain. COMPARISON: 03/02/2019 FINDINGS: Support devices: None. Heart: Mild cardiomegaly. Lungs/pleura: No acute air space or interstitial disease. No pneumothorax. Trace right pleural effusion is identified. Additional findings: None. IMPRESSION: Mild cardiomegaly and trace right pleural effusion. Signer Name: Jackson Vetnura Jr, MD Signed: 03/21/2019 3:09 PM Workstation Name: [id number] Transcribed By: TTR Dictated By: JACKSON VENTURA JR, MD Electronically Authenticated By: JACKSON VENTURA JR, MD Signed Date/Time: 03/21/19 1509 DD/ 1509 TD/TT: - Medical Decision Making Patient is 63 years old male with history of congestive heart failure ejection fracture of 10-15%. Patient presented to the ER complaining or shortness of panfilo ath for the last 4 days. Worse today. Patient stated that he is having some tightness in his chest also. Patient also complaining of bilateral lower extremity swelling. Patient denied any fever or chills. Patient received Lasix 40 mg IV. Labs reviewed and showed a significantly elevated BNP. Elevated creatinine level. Patient is in acute CHF exacerbation. Chest x-ray showed a pleural effusion. I discussed the patient is Dr. Simmons, he agreed to admit the patient to medical service for further management. Critical care attestation.: If time is entered above; I have spent that time in minutes in the direct care of this critically ill patient, excluding procedure time. ED Disposition Clinical Impression: Bilateral lower leg cellulitis, CHF exacerbation Disposition: OP ADMIT IP TO THIS HOSP Is pt being admited?: Yes Condition: Stable
[2019-03-21] MEDS ORDERED: CLEOCIN 600 MG/50 mL 600 MG/50 ML BAG IV ONE ×2 (17:15→18:15)
[2019-03-21 18:19] LABS: Bilirubin,Urine NEG (Negative); Blood,Urine NEG (Negative); Color,Urine Yellow (Yellow)
--- NOTE | 2019-03-21 23:53 | History and Physical Report ---
History of Present Illness Date of examination: 03/21/19 Date of admission: 03/21/19 17:16 Chief complaint: #1 shortness of breath #2 redness of both feet History of present illness: 63-year-old male presents to the emergency room for redness of both the lower extremities for last 2 weeks. Patient also has increasing shortness of breath. Patient was recently discharged from this facility after being treated for CHF exacerbation. Recent medical records reviewed. Orthopnea present. No fever or chills present. Patient says that he has infection of the blood because of his redness in the feet which is not being getting enough attention as per the patient. No recent travel. Swelling of the feet present. Past Medical History Hypertension: Yes Congestive Heart Failure: Yes Kidney Stones: Yes Additional medical history: MITRAL VALVE REGURGITATION Surgical History Additional Surgical History: for broken bones Social History Smoking Status: Never Smoker Substance Use Type: None Family history Htn Medications Home Medications: Home Medications Medication Instructions Recorded Confirmed Last Taken Type Gabapentin [Neurontin] 100 mg PO Q8H #90 capsule 02/18/17 03/02/19 03/02/19 09:00 Rx Aspirin EC [Halfprin EC] 81 mg PO QDAY #100 tablet. 03/12/17 03/02/19 03/02/19 09:00 Rx ALBUTEROL Inhaler (OR & NICU) 2 puff IH QID PRN #2 inha 04/12/17 03/02/19 03/02/19 09:00 Rx [ProAir HFA Inhaler] Carvedilol [Coreg] 3.125 mg PO BID #60 tablet 03/04/19 Unknown Rx Furosemide [Lasix TAB] 20 mg PO DAILY@0600 #30 tablet 03/04/19 03/02/19 03/02/19 09:00 Rx Review of Systems ROS: Stated complaint: IQRA/BOTH LEGS SWOLEN Other details as noted in HPI Comment: All other systems reviewed and negative Constitutional: denies: chills, fever Respiratory: shortness of breath Cardiovascular: Dyspnea on exertion,, orthopnea Gastrointestinal: denies: abdominal pain, nausea, vomiting Neurological: denies: headache, weakness, numbness, paresthesias, confusion, abnormal gait Extremities: Redness of both feet Medications and Allergies Allergies Allergy/AdvReac Type Severity Reaction Status Date / Time Penicillins Allergy Hives Verified 02/15/17 14:05 venom-honey bee Allergy Hives Verified 02/15/17 14:05 [bee venom (honey bee)] morphine AdvReac Unknown Verified 02/15/17 14:05 Home Medications Medication Instructions Recorded Confirmed Last Taken Type ALBUTEROL Inhaler (OR & NICU) 2 puff IH QID PRN #2 inha 04/12/17 03/21/19 03/02/19 09:00 Rx [ProAir HFA Inhaler] Carvedilol [Coreg] 3.125 mg PO BID #60 tablet 03/04/19 03/21/19 Unknown Rx Aspirin EC [Halfprin EC] 81 mg PO DAILY 03/21/19 03/21/19 Unknown History Budesonide/Formoterol Fumarate 2 puff IH BID 03/21/19 03/21/19 Unknown History [Symbicort 160-4.5 Mcg Inhaler] Furosemide [Lasix TAB] 40 mg PO DAILY@0600 03/21/19 03/21/19 Unknown History Active Meds: Active Medications Oxycodone/Acetaminophen (Percocet 5/325) 1 tab PO Q6H PRN PRN Reason: Pain, Moderate (4-6) Exam - Constitutional Vitals: Temp Pulse Resp BP Pulse Ox 97.6 F 105 H 19 157/106 96 03/21/19 14:05 03/21/19 19:51 03/21/19 19:51 03/21/19 19:51 03/21/19 20:26 General appearance: Present: mild distress, well-nourished - EENT Eyes: Present: PERRL ENT: hearing intact, clear oral mucosa - Neck Neck: Present: supple, normal ROM - Respiratory Respiratory effort: normal Respiratory: bilateral: CTA, rales - Cardiovascular Heart rate: 78 Rhythm: regular Heart Sounds: Present: S1 & S2. Absent: rub, click - Extremities Extremities: no ischemia, pulses intact, pulses symmetrical, No edema Extremity abnormal: erythema (both feet) Peripheral Pulses: within normal limits - Abdominal General gastrointestinal: Present: soft, non-tender, non-distended, normal bowel sounds Male genitourinary: Present: normal - Rectal Rectal Exam: deferred - Integumentary Integumentary: Present: clear, warm, dry - Musculoskeletal Musculoskeletal: gait normal, strength equal bilaterally - Psychiatric Psychiatric: appropriate mood/affect, intact judgment & insight - Neurologic Neurologic: CNII-XII intact, moves all extremities - Allied Health Allied health notes reviewed: nursing, case management Results - Labs CBC & Chem 7: 03/21/19 14:31 03/21/19 14:31 Labs: Laboratory Last Values WBC 11.6 K/mm3 (4.5-11.0) H 03/21/19 14:31 RBC 5.05 M/mm3 (3.65-5.03) H 03/21/19 14:31 Hgb 14.7 gm/dl (11.8-15.2) 03/21/19 14:31 Hct 47.1 % (35.5-45.6) H 03/21/19 14:31 MCV 93 fl (84-94) 03/21/19 14:31 MCH 29 pg (28-32) 03/21/19 14:31 MCHC 31 % (32-34) L 03/21/19 14:31 RDW 15.7 % (13.2-15.2) H 03/21/19 14:31 Plt Count 261 K/mm3 (140-440) 03/21/19 14:31 Lymph % (Auto) Assistant Teacher Primary 03/21/19 14:31 [place] % (Auto) Assistant Teacher Primary 03/21/19 14:31 Eos % (Auto) Assistant Teacher Primary 03/21/19 14:31 Baso % (Auto) Assistant Teacher Primary 03/21/19 14:31 Lymph # Assistant Teacher Primary 03/21/19 14:31 [place] # Assistant Teacher Primary 03/21/19 14:31 Eos # Assistant Teacher Primary 03/21/19 14:31 Baso # Assistant Teacher Primary 03/21/19 14:31 Seg Neutrophils % Assistant Teacher Primary 03/21/19 14:31 Seg Neutrophils # Assistant Teacher Primary 03/21/19 14:31 PT 16.4 Sec. (12.2-14.9) H 03/21/19 14:31 INR 1.36 (0.87-1.13) H 03/21/19 14:31 APTT 25.8 Sec. (24.2-36.6) 03/21/19 14:31 Sodium 137 mmol/L (137-145) 03/21/19 14:31 Potassium 4.3 mmol/L (3.6-5.0) 03/21/19 14:31 Chloride 96.5 mmol/L (98-107) L 03/21/19 14:31 Carbon Dioxide 23 mmol/L (22-30) 03/21/19 14:31 22 mmol/L 03/21/19 14:31 BUN 44 mg/dL (9-20) H 03/21/19 14:31 2.0 mg/dL (0.8-1.5) H 03/21/19 14:31 Estimated GFR 34 ml/min 03/21/19 14:31 22 % 03/21/19 14:31 Glucose 115 mg/dL (75-100) H 03/21/19 14:31 Calcium 9.1 mg/dL (8.4-10.2) 03/21/19 14:31 1.30 mg/dL (0.1-1.2) H 03/21/19 14:31 AST 45 units/L (5-40) H 03/21/19 14:31 ALT 46 units/L (7-56) 03/21/19 14:31 78 units/L (35-129) 03/21/19 14:31 0.029 ng/mL (0.00-0.029) 03/21/19 17:08 NT-Pro-B Natriuret Pep 66028 pg/mL (0-900) H 03/21/19 14:31 7.1 g/dL (6.3-8.2) 03/21/19 14:31 3.7 g/dL (3.9-5) L 03/21/19 14:31 1.1 % 03/21/19 14:31 Triglycerides 88 mg/dL (2-149) 03/21/19 14:31 Cholesterol 100 mg/dL (50-199) 03/21/19 14:31 67 mg/dL (50-130) 03/21/19 14:31 32 mg/dL (40-59) L 03/21/19 14:31 3.12 % 03/21/19 14:31 Yellow (Yellow) 03/21/19 17:15 Clear (Clear) 03/21/19 17:15 5.0 (5.0-7.0) 03/21/19 17:15 Ur Specific [place] 1.012 (1.003-1.030) 03/21/19 17:15 30 mg/dl mg/dL (Negative) 03/21/19 17:15 Neg mg/dL (Negative) 03/21/19 17:15 Neg mg/dL (Negative) 03/21/19 17:15 Neg (Negative) 03/21/19 17:15 Neg (Negative) 03/21/19 17:15 Neg (Negative) 03/21/19 17:15 2.0 mg/dL (<2.0) 03/21/19 17:15 Ur Leukocyte Esterase Neg (Negative) 03/21/19 17:15 1.0 /HPF (0.0-6.0) 03/21/19 17:15 2.0 /HPF (0.0-6.0) 03/21/19 17:15 Short CBC 03/21/19 Range/Units 14:31 WBC 11.6 H (4.5-11.0) K/mm3 Hgb 14.7 (11.8-15.2) gm/dl Hct 47.1 H (35.5-45.6) % Plt Count 261 (140-440) K/mm3 BMP 03/21/19 14:31 Sodium 137 Potassium 4.3 Chloride 96.5 L Carbon Dioxide 23 BUN 44 H Creatinine 2.0 H Glucose 115 H Calcium 9.1 Cardiac Enzymes 03/21/19 03/21/19 Range/Units 14:31 17:08 Troponin T 0.034 H 0.029 (0.00-0.029) ng/mL Liver Function 03/21/19 Range/Units 14:31 Total Bilirubin 1.30 H (0.1-1.2) mg/dL AST 45 H (5-40) units/L ALT 46 (7-56) units/L Alkaline Phosphatase 78 (35-129) units/L Albumin 3.7 L (3.9-5) g/dL Urine 03/21/19 Range/Units 17:15 Urine Color Yellow (Yellow) Urine pH 5.0 (5.0-7.0) Ur Specific [place] 1.012 (1.003-1.030) Urine Protein 30 mg/dl (Negative) mg/dL Urine Glucose (UA) Neg (Negative) mg/dL - Imaging and Cardiology EKG: report reviewed (`) Chest x-ray: report reviewed Imaging and Cardiology: ekg Sinus tachycardia heart rate of 1 18/m LVH by voltage criteria Chest x-ray IMPRESSION: Mild cardiomegaly and trace right pleural effusion. Assessment and Plan Advance Directives: Yes (full code) VTE prophylaxis?: Chemical Plan of care discussed with patient/family: Yes - Patient Problems (1) Bilateral lower leg cellulitis Current Visit: Yes Status: Acute Plan to address problem: IV Unasyn and IV vancomycin (2) Acute on chronic combined systolic (congestive) and diastolic (congestive) heart failure Current Visit: No Status: Acute Plan to address problem: IV Lasix for now Patient had echocardiogram recently Ejection fraction of 15% Daily weights Daily intake and output (3) Hypertension Current Visit: Yes Status: Chronic Qualifiers: Hypertension type: essential hypertension Qualified Code(s): I10 - Essential (primary) hypertension Plan to address problem: Continue antihypertensives (4) Obstructive airway disease Current Visit: Yes Status: Chronic Qualifiers: Chronic bronchitis type: simple Plan to address problem: Continue bronchodilators (5) JOHN (acute kidney injury) Current Visit: Yes Status: Acute Plan to address problem: We'll defer to nephrology--Dr. Garcia technical operations manager (6) DVT prophylaxis Current Visit: Yes Status: Acute Plan to address problem: On Lovenox and GI prophylaxis
[2019-03-21] MEDS: PERCOCET 5/325 PO PRN (23:57)
[2019-03-22] MEDS ORDERED: PROAIR IH PRN (00:01)
[2019-03-22] MEDS ORDERED: SODIUM CHLORIDE FLUSH SYRINGE 10 ML IV PRN ×2 (00:02→00:06)
[2019-03-22] MEDS ORDERED: TYLENOL PO PRN ×2 (00:02→00:06)
[2019-03-22] MEDS ORDERED: ZOFRAN IV PRN (00:06)
[2019-03-22] MEDS ORDERED: NON-FORMULARY (Budesonide/Formoterol Fumarate [Symbicort 160-4.5 Mcg Inhaler] 2 PUFF) IH SCH (00:15)
[2019-03-22] MEDS ORDERED: VANCOMYCIN PHARMACY TO DOSE IV SCH (01:00)
[2019-03-22] MEDS ORDERED: PROVENTIL IH PRN (01:23)
[2019-03-22] MEDS: K-DUR PO SCH ×2 (02:10→14:52)
[2019-03-22] MEDS: UNASYN/NS 3 GM/100 ML 3 GM/100 ML BAG IV SCH ×5 (02:10→23:42)
[2019-03-22] MEDS: VANCOMYCIN 1,500 MG in NACL 0.9% 500 ML 500 ML IV SCH (02:50)
[2019-03-22] MEDS: LASIX IV SCH ×2 (06:55→17:49)
[2019-03-22] MEDS: PULMICORT IH SCH ×2 (09:03→19:53)
[2019-03-22] MEDS: BROVANA NEBU IH SCH ×2 (09:03→19:53)
[2019-03-22] MEDS: PERCOCET 5/325 PO PRN ×3 (09:16→23:46)
[2019-03-22] MEDS: COREG PO SCH ×2 (09:39→22:32)
[2019-03-22] MEDS: PEPCID PO SCH ×2 (09:40→22:32)
[2019-03-22] MEDS: HALFPRIN EC PO SCH (09:41)
[2019-03-22] MEDS: SODIUM CHLORIDE FLUSH SYRINGE 10 ML IV SCH ×2 (09:45→22:33)
[2019-03-22] MEDS ORDERED: SODIUM CHLORIDE FLUSH SYRINGE 10 ML IV SCH (10:00)
--- NOTE | 2019-03-22 10:11 | Consultation ---
History of Present Illness Consult date: 03/22/19 Requesting physician: LAYO DUTTA Consult reason: congestive heart failure History of present illness: The patient is a 63 YO male with a past medical history of NICMP, chronic HFrEF, NSVT, chronically declines LifeVest/AICD, CKD, HTN, mod to severe TR. He is followed in our office by Dr. Alatorre. He presented with c/o generalized aches, fever, chills, BLE redness and swelling and dyspnea on exertion for approx 4 days prior to arrival. Pt was discharged from [facility] on 03/04/2019 following treatment for A/CHFrEF. He is noted to have diffuse BLE redness with blistering and multiple lesions and scabs. He also has some scratches to BLE and back which he states are from his cat. He denies any chest pain, palpitations, n/v, diaphoresis, dizziness or syncope. LHC done 04/2017 showed patent coronaries, EF 10-15%. Echo done 02/28/19 showed EF of 10-15%, dilation of all chambers, moderate AR, moderate to severe TR and RV hypokinesis. Past History Past Medical History: heart failure, hypertension Medications and Allergies Allergies Allergy/AdvReac Type Severity Reaction Status Date / Time Penicillins Allergy Hives Verified 02/15/17 14:05 venom-honey bee Allergy Hives Verified 02/15/17 14:05 [bee venom (honey bee)] morphine AdvReac Unknown Verified 02/15/17 14:05 Home Medications Medication Instructions Recorded Confirmed Last Taken Type ALBUTEROL Inhaler (OR & NICU) 2 puff IH QID PRN #2 inha 04/12/17 03/21/19 03/02/19 09:00 Rx [ProAir HFA Inhaler] Carvedilol [Coreg] 3.125 mg PO BID #60 tablet 03/04/19 03/21/19 Unknown Rx Aspirin EC [Halfprin EC] 81 mg PO DAILY 03/21/19 03/21/19 Unknown History Budesonide/Formoterol Fumarate 2 puff IH BID 03/21/19 03/21/19 Unknown History [Symbicort 160-4.5 Mcg Inhaler] Furosemide [Lasix TAB] 40 mg PO DAILY@0600 03/21/19 03/21/19 Unknown History Active Meds: Active Medications Acetaminophen (Tylenol) 650 mg PO Q4H PRN PRN Reason: Pain MILD(1-3)/Fever >100.5/RUIZ Albuterol (Proventil) 2.5 mg IH QIDRT PRN PRN Reason: Shortness Of Breath Arformoterol Tartrate (Brovana Nebu) 15 mcg IH Q12HRT [facility] Last Admin: 03/22/19 09:03 Dose: 15 mcg Documented by: Aspirin (Halfprin Ec) 81 mg PO DAILY [facility] Last Admin: 03/22/19 09:41 Dose: 81 mg Documented by: Budesonide (Pulmicort) 1 mg IH Q12HRT [facility] Last Admin: 03/22/19 09:03 Dose: 1 mg Documented by: Carvedilol (Coreg) 3.125 mg PO BID [facility] Last Admin: 03/22/19 09:39 Dose: 3.125 mg Documented by: Famotidine (Pepcid) 20 mg PO BID [facility] Last Admin: 03/22/19 09:40 Dose: 20 mg Documented by: Furosemide (Lasix) 40 mg IV 0600,1800 [facility] Last Admin: 03/22/19 06:55 Dose: 40 mg Documented by: Hydromorphone HCl (Dilaudid) 0.5 mg IV Q3H PRN PRN Reason: Pain , Severe (7-10) Ampicillin Sodium/Sulbactam Sodium (Unasyn/Ns 3 Gm/100 Ml) 3 gm in 100 mls @ 100 mls/hr IV Q6HR [facility]; Protocol Last Admin: 03/22/19 06:55 Dose: 100 mls/hr Documented by: Vancomycin HCl 1,500 mg/ (Sodium Chloride) 530 mls @ 333.333 mls/hr IV Q24H [facility] Last Admin: 03/22/19 02:50 Dose: 333.333 mls/hr Documented by: Ondansetron HCl (Zofran) 4 mg IV Q8H PRN PRN Reason: Nausea And Vomiting Oxycodone/Acetaminophen (Percocet 5/325) 1 tab PO Q6H PRN PRN Reason: Pain, Moderate (4-6) Last Admin: 03/22/19 09:16 Dose: 1 tab Documented by: Potassium Chloride (K-Dur) 20 meq PO Q12H [facility] Last Admin: 03/22/19 02:10 Dose: 20 meq Documented by: Sodium Chloride (Sodium Chloride Flush Syringe 10 Ml) 10 ml IV BID [facility] Last Admin: 03/22/19 09:45 Dose: 10 ml Documented by: Sodium Chloride (Sodium Chloride Flush Syringe 10 Ml) 10 ml IV PRN PRN PRN Reason: LINE FLUSH Review of Systems Constitutional: fever, chills, sweats Ears, nose, mouth and throat: no ear pain, no nose pain, no sinus pressure, no sinus pain Cardiovascular: orthopnea (chronic), shortness of breath, dyspnea on exertion, leg edema (BLE), no chest pain, no palpitations, no rapid/irregular heart beat, no syncope, no lightheadedness Respiratory: shortness of breath, dyspnea on exertion, no cough, no congestion, no wheezing, no pain on inspiration Gastrointestinal: no abdominal pain, no nausea, no vomiting, no diarrhea, no constipation, no change in bowel habits Genitourinary Male: no dysuria, no hematuria, no flank pain, no discharge, no urinary frequency, no urinary hesitancy Musculoskeletal: no neck stiffness, no neck pain, no shooting arm pain, no arm numbness/tingling, no low back pain Integumentary: redness (BLE and BUE), sores (BLE and BUE), wounds (BLE and BUE), no pruritis Neurological: no head injury, no paralysis, no weakness, no parathesias, no numbness, no tingling, no seizures, no syncope Psychiatric: no anxiety Endocrine: no cold intolerance, no heat intolerance Hematologic/Lymphatic: no easy bruising, no easy bleeding Allergic/Immunologic: no wheezing Physical Examination Vital Signs Resp BP 19 161/85 03/21/19 13:41 03/21/19 13:41 General appearance: no acute distress HEENT: Positive: PERRL, Normocephaly, Mucus Membranes Moist Neck: Positive: neck supple, trachea midline Cardiac: Positive: Regular Rhythm, S1/S2, Systolic Murmur, Tachycardia Lungs: Positive: Decreased Breath Sounds Neuro: Positive: Grossly Intact Abdomen: Negative: Tender Skin: Positive: Wound (BLE and BUE) Extremities: Present: +2 Edema (BLE) Results 03/21/19 14:31 03/21/19 14:31 Cardiac Enzymes 03/21/19 Range/Units 14:31 AST 45 H (5-40) units/L Coagulation 03/21/19 Range/Units 14:31 PT 16.4 H (12.2-14.9) Sec. INR 1.36 H (0.87-1.13) APTT 25.8 (24.2-36.6) Sec. Lipids 03/21/19 Range/Units 14:31 Triglycerides 88 (2-149) mg/dL Cholesterol 100 (50-199) mg/dL HDL Cholesterol 32 L (40-59) mg/dL Cholesterol/HDL Ratio 3.12 % CBC 03/21/19 Range/Units 14:31 WBC 11.6 H (4.5-11.0) K/mm3 RBC 5.05 H (3.65-5.03) M/mm3 Hgb 14.7 (11.8-15.2) gm/dl Hct 47.1 H (35.5-45.6) % Plt Count 261 (140-440) K/mm3 Lymph # Textile Engineer [place] # Textile Engineer Eos # Textile Engineer Baso # Textile Engineer Comprehensive Metabolic Panel 03/21/19 Range/Units 14:31 Sodium 137 (137-145) mmol/L Potassium 4.3 (3.6-5.0) mmol/L Chloride 96.5 L (98-107) mmol/L Carbon Dioxide 23 (22-30) mmol/L BUN 44 H (9-20) mg/dL Creatinine 2.0 H (0.8-1.5) mg/dL Glucose 115 H (75-100) mg/dL Calcium 9.1 (8.4-10.2) mg/dL AST 45 H (5-40) units/L ALT 46 (7-56) units/L Alkaline Phosphatase 78 (35-129) units/L Total Protein 7.1 (6.3-8.2) g/dL Albumin 3.7 L (3.9-5) g/dL - Imaging and Cardiology Echo: report reviewed (02/28/19 showed EF of 10-15%, dilation of all chambers, moderate AR, moderate to severe TR and RV hypokinesis. ) Cardiac cath: report reviewed (04/2017 showed patent coronaries, EF 10-15%. ) EKG: report reviewed, image reviewed EKG interpretations - Telemetry EKG Rhythm: Sinus Tachycardia - EKG Sinus rhythms and dysrhythmias: sinus tachycardia Assessment and Plan Agree with present cardiac management, monitor renal indices closely. No GRACIE I/ARB in setting of renal insufficiency. Pt's BLE cellulitis appears to be his primary issue at this point. He is receiving IV abx per primary and blood cultures are pending. Wound care has also been consulted. The patient has been seen in conjunction with Dr. Melia Baird who agrees with the assessment and plan of care. - Patient Problems (1) Bilateral lower leg cellulitis Current Visit: Yes Status: Acute (2) Acute on chronic systolic heart failure Current Visit: Yes Status: Acute (3) Nonischemic cardiomyopathy Current Visit: Yes Status: Chronic (4) NSVT (nonsustained ventricular tachycardia) Current Visit: Yes Status: Chronic (5) Sinus tachycardia Current Visit: Yes Status: Acute (6) Tricuspid valve regurgitation Current Visit: Yes Status: Chronic (7) Hypertension Current Visit: Yes Status: Chronic Qualifiers: Hypertension type: essential hypertension Qualified Code(s): I10 - Essential (primary) hypertension (8) CKD (chronic kidney disease) Current Visit: Yes Status: Chronic Qualifiers:
--- NOTE | 2019-03-22 10:37 | Progress Note ---
Assessment and Plan Assessment and plan: 63-year-old male presents to the emergency room for redness of both the lower extremities for last 2 weeks. Patient also has increasing shortness of breath. Patient was recently discharged from this facility after being treated for CHF exacerbation. Acute on chronic systolic CHF Lasix iv, Beta blockers cardiology consulted Cellulitis both lower ext Cont Unasyn, Vancomycin Nonischemic cardiomyopathy Acute on CKD Nephrology consulted HTN Monotor BP Full code status History Interval history: Shortness of breath redness both feet Hospitalist Physical - Physical exam Narrative exam: Gen: Not in acute distress, HEENT: Normocephalic, atraumatic Neck: supple, no JVD Heart: S1 and S2 reg, no rubs or gallop Lungs: Bibasilar crackles, no rhonchi, no wheeze Abd: soft, Non tender, non distended, normal BS, Ext: Bilat edema,erythema, no cyanosis Neuro: Awake, alert, oriented, no focal neurological signs - Constitutional Vitals: Temp Pulse Resp BP Pulse Ox 98.0 F 111 H 18 132/107 97 03/22/19 08:42 03/22/19 09:39 03/22/19 08:42 03/22/19 09:39 03/22/19 09:07 General appearance: Present: no acute distress Results - Labs CBC & Chem 7: 03/21/19 14:31 03/21/19 14:31 Labs: Laboratory Last Values WBC 11.6 K/mm3 (4.5-11.0) H 03/21/19 14:31 RBC 5.05 M/mm3 (3.65-5.03) H 03/21/19 14:31 Hgb 14.7 gm/dl (11.8-15.2) 03/21/19 14:31 Hct 47.1 % (35.5-45.6) H 03/21/19 14:31 MCV 93 fl (84-94) 03/21/19 14:31 MCH 29 pg (28-32) 03/21/19 14:31 MCHC 31 % (32-34) L 03/21/19 14:31 RDW 15.7 % (13.2-15.2) H 03/21/19 14:31 Plt Count 261 K/mm3 (140-440) 03/21/19 14:31 Lymph % (Auto) Medical Record Assistant 03/21/19 14:31 Mason % (Auto) Medical Record Assistant 03/21/19 14:31 Eos % (Auto) Medical Record Assistant 03/21/19 14:31 Baso % (Auto) Medical Record Assistant 03/21/19 14:31 Lymph # Medical Record Assistant 03/21/19 14:31 Mason # Medical Record Assistant 03/21/19 14:31 Eos # Medical Record Assistant 03/21/19 14:31 Baso # Medical Record Assistant 03/21/19 14:31 Seg Neutrophils % Medical Record Assistant 03/21/19 14:31 Seg Neutrophils # Medical Record Assistant 03/21/19 14:31 PT 16.4 Sec. (12.2-14.9) H 03/21/19 14:31 INR 1.36 (0.87-1.13) H 03/21/19 14:31 APTT 25.8 Sec. (24.2-36.6) 03/21/19 14:31 Sodium 137 mmol/L (137-145) 03/21/19 14:31 Potassium 4.3 mmol/L (3.6-5.0) 03/21/19 14:31 Chloride 96.5 mmol/L (98-107) L 03/21/19 14:31 Carbon Dioxide 23 mmol/L (22-30) 03/21/19 14:31 22 mmol/L 03/21/19 14:31 BUN 44 mg/dL (9-20) H 03/21/19 14:31 2.0 mg/dL (0.8-1.5) H 03/21/19 14:31 Estimated GFR 34 ml/min 03/21/19 14:31 22 % 03/21/19 14:31 Glucose 115 mg/dL (75-100) H 03/21/19 14:31 7.2 % (4-6) H 03/22/19 00:14 Calcium 9.1 mg/dL (8.4-10.2) 03/21/19 14:31 1.30 mg/dL (0.1-1.2) H 03/21/19 14:31 AST 45 units/L (5-40) H 03/21/19 14:31 ALT 46 units/L (7-56) 03/21/19 14:31 78 units/L (35-129) 03/21/19 14:31 0.029 ng/mL (0.00-0.029) 03/21/19 17:08 NT-Pro-B Natriuret Pep 78604 pg/mL (0-900) H 03/21/19 14:31 7.1 g/dL (6.3-8.2) 03/21/19 14:31 3.7 g/dL (3.9-5) L 03/21/19 14:31 1.1 % 03/21/19 14:31 Triglycerides 88 mg/dL (2-149) 03/21/19 14:31 Cholesterol 100 mg/dL (50-199) 03/21/19 14:31 67 mg/dL (50-130) 03/21/19 14:31 32 mg/dL (40-59) L 03/21/19 14:31 3.12 % 03/21/19 14:31 Yellow (Yellow) 03/21/19 17:15 Clear (Clear) 03/21/19 17:15 5.0 (5.0-7.0) 03/21/19 17:15 Ur Specific [place] 1.012 (1.003-1.030) 03/21/19 17:15 30 mg/dl mg/dL (Negative) 03/21/19 17:15 Neg mg/dL (Negative) 03/21/19 17:15 Neg mg/dL (Negative) 03/21/19 17:15 Neg (Negative) 03/21/19 17:15 Neg (Negative) 03/21/19 17:15 Neg (Negative) 03/21/19 17:15 2.0 mg/dL (<2.0) 03/21/19 17:15 Ur Leukocyte Esterase Neg (Negative) 03/21/19 17:15 1.0 /HPF (0.0-6.0) 03/21/19 17:15 2.0 /HPF (0.0-6.0) 03/21/19 17:15 Active Medications - Current Medications Current Medications: Generic Name Dose Route Start Last Admin Trade Name Freq PRN Reason Stop Dose Admin Acetaminophen 650 mg 03/22/19 00:02 Tylenol PO Q4H PRN Pain MILD(1-3)/Fever >100.5/RUIZ Albuterol 2.5 mg 03/22/19 01:23 Proventil IH QIDRT PRN Shortness Of Breath Arformoterol Tartrate 15 mcg 03/22/19 08:00 03/22/19 09:03 Brovana Nebu IH 15 mcg Q12HRT [facility] Administration Aspirin 81 mg 03/22/19 10:00 03/22/19 09:41 Halfprin Ec PO 81 mg DAILY [facility] Administration Budesonide 1 mg 03/22/19 08:00 03/22/19 09:03 Pulmicort IH 1 mg Q12HRT [facility] Administration Carvedilol 3.125 mg 03/22/19 10:00 03/22/19 09:39 Coreg PO 3.125 mg BID [facility] Administration Famotidine 20 mg 03/22/19 10:00 03/22/19 09:40 Pepcid PO 20 mg BID [facility] Administration Furosemide 40 mg 03/22/19 06:00 03/22/19 06:55 Lasix IV 40 mg 0600,1800 [facility] Administration Hydromorphone HCl 0.5 mg 03/22/19 00:02 Dilaudid IV Q3H PRN Pain , Severe (7-10) Ampicillin Sodium/Sulbactam Sodium 3 gm in 100 mls @ 100 mls/hr 03/22/19 01:00 03/22/19 06:55 Unasyn/Ns 3 Gm/100 Ml IV 100 mls/hr Q6HR [facility] Administration Protocol Vancomycin HCl 1,500 mg/ 530 mls @ 333.333 mls/hr 03/22/19 01:30 03/22/19 02:50 Sodium Chloride IV 333.333 mls/hr Q24H [facility] Administration Ondansetron HCl 4 mg 03/22/19 00:02 Zofran IV Q8H PRN Nausea And Vomiting Oxycodone/Acetaminophen 1 tab 03/21/19 23:32 03/22/19 09:16 Percocet 5/325 PO 1 tab Q6H PRN Administration Pain, Moderate (4-6) Potassium Chloride 20 meq 03/22/19 01:00 03/22/19 02:10 K-Dur PO 20 meq Q12H [facility] Administration Sodium Chloride 10 ml 03/22/19 10:00 03/22/19 09:45 Sodium Chloride Flush Syringe 10 Ml IV 10 ml BID [facility] Administration Sodium Chloride 10 ml 03/22/19 00:02 Sodium Chloride Flush Syringe 10 Ml IV PRN PRN LINE FLUSH
--- NOTE | 2019-03-22 11:51 | Consultation ---
History of Present Illness - History of Present Illness Thank you for the consultation ! Patient was evaluated today My assessment and plan are as follows; renal failure patient's creatinine is relatively stable, he does have evidence o f 2+ peripheral edema no significant proteinuria and the likely etiology of his worsening of swelling in both lower extremity appears to be resulting from severe cardiomyopathy ejection fraction of between 10-15% dietary compliance has been poor, This time I would recommend continuing the diuretics as long as his creatinine is staying less than 2.2 He may benefit from addition of spironolactone He does have severe cardiomyopathy: Patient will benefit from a dietary evaluation His dietary compliance appears to be very poor Rash: Concerning does not appear to be vasculitic to me, patient stated that he has had flea bites before Does not have any evidence of hematuria I would recommend an infectious disease consultation Patient was adequately counseled and educated regarding multiple renal related issues. Renal prognosis remains guarded at this time All renal related questions were answered and simple [place] pertinent lab studies as well as imaging results were also discussed with patient We will continue to follow and make recommendations from renal standpoint. Thank you for the consultation Author: Polo Ayala M.D. [facility], [address] [place] [address] Tel; [phone] Source of information: From patient is noted that patient is a very poor historian History of present illness Patient is 63-year-old male who is currently establish in our clinic with Dr. Tapia, he has been admitted here with shortness of breath. He has been complaining of progressive worsening of swelling of both lower extremity.upon further verification patient says that he has not been very careful with his salt and fluid intake Patient has multiple rashes in both lower extremity, doesn't history of nonischemic cardiomyopathy, chronic kidney disease hypertension moderate to severe tricuspid regurgitation and is currently being followed by Dr. Alatorre Patient says that he was seen by my partner approximately 3 months ago Patient's ejection fraction is very poor between 10-15% He does complain of multiple rashes in the lower extremity as well as in the upper part of body which have been present for last 3-4 weeks Past medical history significant for Chronic kidney disease Severe cardiomyopathy Nonsustained ventricular tachycardia AICD Hypertension Moderate to severe tricuspid regurgitation Ejection fraction 15% Current allergies: Penicillin and morphine and honeybee venom No medication present medication: Reviewed Social history: Family history: Reviewed Review of systems positive for progressive worsening of swelling in both lower extremity, dietary. compliance is very poor Skin rash bilateral lower extremity, patient states that these have been present for last 3-4 weeks He does not have any arthralgias myalgias sore throat and nasal bleeding All other review of systems negative Physical examination Vitals: Reviewed General: No acute distress HEENT: Oral mucosa moist no pallor or icterus Neck: Supple without any JVD thyromegaly or nodular mass Chest:bilateral basilar crackles Heart: Regular rate and rhythm S1-S2 heard no S3-S4 Abdomen: Soft nontender, bowel sounds present no renal bruit no suprapubic masses no CVA tenderness noted Extremity: patient has approximately 2+ bilateral edema Endocrine: Thyroid not enlarged skin: Patient does have multiple lesions erythematous circumscribed partially blanchable. Both lower extremity mostly in the distal area some in the upper trunk Not appear to be vasculitic, however at this time Psychiatric: No agitation and aggression noted Musculoskeletal: No joint effusion noted Labs and x-rays: Reviewed from this admission Past History Past Medical History: heart failure, hypertension Medications and Allergies Allergies Allergy/AdvReac Type Severity Reaction Status Date / Time Penicillins Allergy Hives Verified 02/15/17 14:05 venom-honey bee Allergy Hives Verified 02/15/17 14:05 [bee venom (honey bee)] morphine AdvReac Unknown Verified 02/15/17 14:05 Home Medications Medication Instructions Recorded Confirmed Last Taken Type ALBUTEROL Inhaler (OR & NICU) 2 puff IH QID PRN #2 inha 04/12/17 03/21/19 03/02/19 09:00 Rx [ProAir HFA Inhaler] Carvedilol [Coreg] 3.125 mg PO BID #60 tablet 03/04/19 03/21/19 Unknown Rx Aspirin EC [Halfprin EC] 81 mg PO DAILY 03/21/19 03/21/19 Unknown History Budesonide/Formoterol Fumarate 2 puff IH BID 03/21/19 03/21/19 Unknown History [Symbicort 160-4.5 Mcg Inhaler] Furosemide [Lasix TAB] 40 mg PO DAILY@0600 03/21/19 03/21/19 Unknown History Active Meds: Active Medications Acetaminophen (Tylenol) 650 mg PO Q4H PRN PRN Reason: Pain MILD(1-3)/Fever >100.5/RUIZ Albuterol (Proventil) 2.5 mg IH QIDRT PRN PRN Reason: Shortness Of Breath Arformoterol Tartrate (Brovana Nebu) 15 mcg IH Q12HRT [facility] Last Admin: 03/22/19 09:03 Dose: 15 mcg Documented by: Aspirin (Halfprin Ec) 81 mg PO DAILY [facility] Last Admin: 03/22/19 09:41 Dose: 81 mg Documented by: Budesonide (Pulmicort) 1 mg IH Q12HRT [facility] Last Admin: 03/22/19 09:03 Dose: 1 mg Documented by: Carvedilol (Coreg) 3.125 mg PO BID [facility] Last Admin: 03/22/19 09:39 Dose: 3.125 mg Documented by: Famotidine (Pepcid) 20 mg PO BID [facility] Last Admin: 03/22/19 09:40 Dose: 20 mg Documented by: Furosemide (Lasix) 40 mg IV 0600,1800 [facility] Last Admin: 03/22/19 06:55 Dose: 40 mg Documented by: Hydromorphone HCl (Dilaudid) 0.5 mg IV Q3H PRN PRN Reason: Pain , Severe (7-10) Ampicillin Sodium/Sulbactam Sodium (Unasyn/Ns 3 Gm/100 Ml) 3 gm in 100 mls @ 100 mls/hr IV Q6HR [facility]; Protocol Last Admin: 03/22/19 06:55 Dose: 100 mls/hr Documented by: Vancomycin HCl 1,500 mg/ (Sodium Chloride) 530 mls @ 333.333 mls/hr IV Q24H [facility] Last Admin: 03/22/19 02:50 Dose: 333.333 mls/hr Documented by: Ondansetron HCl (Zofran) 4 mg IV Q8H PRN PRN Reason: Nausea And Vomiting Oxycodone/Acetaminophen (Percocet 5/325) 1 tab PO Q6H PRN PRN Reason: Pain, Moderate (4-6) Last Admin: 03/22/19 09:16 Dose: 1 tab Documented by: Potassium Chloride (K-Dur) 20 meq PO Q12H [facility] Last Admin: 03/22/19 02:10 Dose: 20 meq Documented by: Sodium Chloride (Sodium Chloride Flush Syringe 10 Ml) 10 ml IV BID [facility] Last Admin: 03/22/19 09:45 Dose: 10 ml Documented by: Sodium Chloride (Sodium Chloride Flush Syringe 10 Ml) 10 ml IV PRN PRN PRN Reason: LINE FLUSH Exam - Vital Signs Vital signs: Vital Signs Resp BP 19 161/85 03/21/19 13:41 03/21/19 13:41 Results - Lab Results 03/21/19 14:31 03/21/19 14:31 Most recent lab results Calcium 9.1 mg/dL (8.4-10.2) 03/21/19 14:31
[2019-03-22] MEDS: ZOFRAN IV PRN (12:11)
[2019-03-23] MEDS: VANCOMYCIN 1,500 MG in NACL 0.9% 500 ML 500 ML IV SCH (01:00)
[2019-03-23] MEDS: K-DUR PO SCH ×2 (01:41→12:54)
[2019-03-23 02:59] LABS: Creatinine,Urine 40.4 mg/dL (0.1-20.0)
[2019-03-23 05:24] LABS: Basophils # (Auto) 0.1 K/mm3 (0.0-0.1); Basophils % (Auto) 1.2 % (0.0-1.8); Eosinophils # (Auto) 0.4 K/mm3 (0.0-0.4); Eosinophils % (Auto) 4.5 % (0.0-4.3); Hematocrit 43.2 % (35.5-45.6); Lymphocytes % (Auto) 10.1 % (13.4-35.0); Mean Corpuscular HGB Conc 32 % (32-34); Mean Corpuscular Volume 89 fl (84-94); Monocytes # (Auto) 0.3 K/mm3 (0.0-0.8); Monocytes % (Auto) 3.1 % (0.0-7.3); Platelet Count 221 K/mm3 (140-440); Red Blood Count 4.85 M/mm3 (3.65-5.03); Red Cell Distribution Width 15.2 % (13.2-15.2)
[2019-03-23 05:41] LABS: Albumin 3.2 g/dL (3.9-5); Calcium 8.5 mg/dL (8.4-10.2)
[2019-03-23] MEDS: LASIX IV SCH ×2 (06:07→17:34)
[2019-03-23] MEDS: UNASYN/NS 3 GM/100 ML 3 GM/100 ML BAG IV SCH ×3 (06:19→17:33)
[2019-03-23] MEDS: PULMICORT IH SCH ×2 (09:16→20:00)
[2019-03-23] MEDS: BROVANA NEBU IH SCH ×2 (09:17→20:00)
[2019-03-23] MEDS: HALFPRIN EC PO SCH (10:07)
[2019-03-23] MEDS: PEPCID PO SCH ×2 (10:07→22:10)
[2019-03-23] MEDS: COREG PO SCH ×2 (10:07→22:09)
[2019-03-23] MEDS: SODIUM CHLORIDE FLUSH SYRINGE 10 ML IV SCH ×2 (10:07→22:15)
[2019-03-23] MEDS: PERCOCET 5/325 PO PRN (10:12)
--- NOTE | 2019-03-23 10:45 | Progress Note ---
Subjective Interval history: Patient was seen today for follow-up on multiple renal related issues Events of this hospitalization were noted Creatinine appears to be better Interdisciplinary notes were also reviewed Vitals intake output medications were reviewed Past medical history: Reviewed Family, social history: Reviewed Allergies: Reviewed Physical examination General: No acute distress Vitals: Reviewed HEENT: Oral mucosa moist no icterus Neck: Supple no thyromegaly nodular mass or JVD Chest: Clear to auscultation anteriorly Heart: Regular rate and rhythm S1-S2 heard no S3-S4 Abdomen: Soft nontender no suprapubic masses no organomegaly Extremity: Dry skin 2+edema Psych: No evidence of any agitation and aggression noted Assessment and plan: Renal failure, with volume overload anasarca-like picture creatinine is currently better improving with diuresis Hypokalemia consider adding spironolactone in his case and follow Skin rash recommend infectious disease evaluation Continue to diurese as tolerated Fluid restriction sodium restriction daily with monitoring blood pressure monitoring recommended Protein creatinine ratio 18/40 suggestive of 400 mg protein area nearly, consider significant for the degree of swelling that he has Most of his swelling is resulting from congestive heart failure noncompliant sodium etc. All renal related issues were discussed with the patient, patient does exhibit good understanding, lab results were also discussed with patient in simple Latvian Prognosis: Guarded We'll continue to follow and make recommendation from renal standpoint Objective - Vital Signs Vital signs: Vital Signs - 12hr 03/22/19 03/23/19 03/23/19 23:46 00:46 06:02 Temperature 97.4 F L Pulse Rate 92 H Pulse Rate [ Anterior Bilateral Throughout] Pulse Rate [ Right Lower Lobe] Respiratory 18 20 20 Rate Respiratory Rate [Anterior Bilateral Throughout] Respiratory Rate [Right Lower Lobe] Blood Pressure 141/103 O2 Sat by Pulse 99 Oximetry 03/23/19 03/23/19 09:16 09:57 Temperature Pulse Rate Pulse Rate [ 107 H Anterior Bilateral Throughout] Pulse Rate [ 96 H Right Lower Lobe] Respiratory Rate Respiratory 20 Rate [Anterior Bilateral Throughout] Respiratory 20 Rate [Right Lower Lobe] Blood Pressure O2 Sat by Pulse 97 Oximetry - Lab 03/23/19 04:29 03/23/19 04:29 Most recent lab results Calcium 8.5 mg/dL (8.4-10.2) 03/23/19 04:29 40.4 mg/dL (0.1-20.0) H 03/22/19 Unknown 18 mg/dL (5-11.8) H 03/22/19 Unknown Medications & Allergies - Medications Allergies/Adverse Reactions: Allergies Penicillins Allergy (Verified 02/15/17 14:05) Hives venom-honey bee [bee venom (honey bee)] Allergy (Verified 02/15/17 14:05) Hives morphine Adverse Reaction (Verified 02/15/17 14:05) Unknown Home Medications: Home Medications Medication Instructions Recorded Confirmed Last Taken Type ALBUTEROL Inhaler (OR & NICU) 2 puff IH QID PRN #2 inha 04/12/17 03/21/19 03/02/19 09:00 Rx [ProAir HFA Inhaler] Carvedilol [Coreg] 3.125 mg PO BID #60 tablet 03/04/19 03/21/19 Unknown Rx Aspirin EC [Halfprin EC] 81 mg PO DAILY 03/21/19 03/21/19 Unknown History Budesonide/Formoterol Fumarate 2 puff IH BID 03/21/19 03/21/19 Unknown History [Symbicort 160-4.5 Mcg Inhaler] Furosemide [Lasix TAB] 40 mg PO DAILY@0600 03/21/19 03/21/19 Unknown History Active Medications: Generic Name Dose Route Start Last Admin Trade Name Freq PRN Reason Stop Dose Admin Acetaminophen 650 mg 03/22/19 00:02 Tylenol PO Q4H PRN Pain MILD(1-3)/Fever >100.5/RUIZ Albuterol 2.5 mg 03/22/19 01:23 03/23/19 09:22 Proventil IH 2.5 mg QIDRT PRN Administration Shortness Of Breath Arformoterol Tartrate 15 mcg 03/22/19 08:00 03/23/19 09:17 Brovana Nebu IH 15 mcg Q12HRT ROSE Administration Aspirin 81 mg 03/22/19 10:00 03/23/19 10:07 Halfprin Ec PO 81 mg DAILY ROSE Administration Budesonide 1 mg 03/22/19 08:00 03/23/19 09:16 Pulmicort IH 1 mg Q12HRT ROSE Administration Carvedilol 3.125 mg 03/22/19 10:00 03/23/19 10:07 Coreg PO 3.125 mg BID ROSE Administration Famotidine 20 mg 03/22/19 10:00 03/23/19 10:07 Pepcid PO 20 mg BID ROSE Administration Furosemide 40 mg 03/22/19 06:00 03/23/19 06:07 Lasix IV 40 mg 0600,1800 ROSE Administration Hydromorphone HCl 0.5 mg 03/22/19 00:02 Dilaudid IV Q3H PRN Pain , Severe (7-10) Ampicillin Sodium/Sulbactam Sodium 3 gm in 100 mls @ 100 mls/hr 03/22/19 01:00 03/23/19 06:19 Unasyn/Ns 3 Gm/100 Ml IV 100 mls/hr Q6HR ROSE Administration Protocol Vancomycin HCl 1,500 mg/ 530 mls @ 333.333 mls/hr 03/22/19 01:30 03/23/19 01:00 Sodium Chloride IV 333.333 mls/hr Q24H ROSE Administration Ondansetron HCl 4 mg 03/22/19 00:02 03/22/19 12:11 Zofran IV 4 mg Q8H PRN Administration Nausea And Vomiting Oxycodone/Acetaminophen 1 tab 03/21/19 23:32 03/23/19 10:12 Percocet 5/325 PO 1 tab Q6H PRN Administration Pain, Moderate (4-6) Potassium Chloride 20 meq 03/22/19 01:00 03/23/19 01:41 K-Dur PO 20 meq Q12H ROSE Administration Sodium Chloride 10 ml 03/22/19 10:00 03/23/19 10:07 Sodium Chloride Flush Syringe 10 Ml IV 10 ml BID ROSE Administration Sodium Chloride 10 ml 03/22/19 00:02 Sodium Chloride Flush Syringe 10 Ml IV PRN PRN LINE FLUSH
--- NOTE | 2019-03-23 10:54 | Progress Note ---
Assessment and Plan The patient is stable from a cardiac standpoint. Continue current management and diuresis per nephrology recommendations. The patient has been seen in conjunction with Dr. Valdez, who agrees with assessment and plan of care. Subjective Date of service: 03/23/19 Interval history: Patient is sitting in bed in NAD. C/O foot pain and requesting an x-ray of his foot and repeating that he has an infection that has not been treated. Numerous small wounds resembling insect bites noted. BLE edema improved. Telemetry reviewed - SR in 80s. Objective Last Vital Signs Temp 97.4 F L 03/23/19 06:02 Pulse 96 H 03/23/19 09:16 Resp 20 03/23/19 09:16 BP 141/103 03/23/19 06:02 Pulse Ox 97 03/23/19 09:57 - Physical Examination General: No Apparent Distress HEENT: Positive: PERRL, Normocephaly, Mucus Membranes Moist Neck: Positive: neck supple, trachea midline Cardiac: Positive: Reg Rate and Rhythm Lungs: Positive: Normal Exam Neuro: Positive: Grossly Intact Abdomen: Positive: Unremarkable. Negative: Tender /Rectal: Other (deferred) Skin: Positive: Wound (BLE and BUE) Extremities: Present: +2 Edema (BLE) - Labs and Meds Cardiac Enzymes 03/23/19 Range/Units 04:29 AST 28 (5-40) units/L CBC 03/23/19 Range/Units 04:29 WBC 10.0 (4.5-11.0) K/mm3 RBC 4.85 (3.65-5.03) M/mm3 Hgb 14.0 (11.8-15.2) gm/dl Hct 43.2 (35.5-45.6) % Plt Count 221 (140-440) K/mm3 Lymph # 1.0 L (1.2-5.4) K/mm3 [place] # 0.3 (0.0-0.8) K/mm3 Eos # 0.4 (0.0-0.4) K/mm3 Baso # 0.1 (0.0-0.1) K/mm3 Comprehensive Metabolic Panel 03/23/19 Range/Units 04:29 Sodium 140 (137-145) mmol/L Potassium 3.4 L D (3.6-5.0) mmol/L Chloride 98.9 (98-107) mmol/L Carbon Dioxide 27 (22-30) mmol/L BUN 37 H (9-20) mg/dL Creatinine 1.5 (0.8-1.5) mg/dL Glucose 122 H (75-100) mg/dL Calcium 8.5 (8.4-10.2) mg/dL AST 28 (5-40) units/L ALT 35 (7-56) units/L Alkaline Phosphatase 61 (35-129) units/L Total Protein 6.2 L (6.3-8.2) g/dL Albumin 3.2 L (3.9-5) g/dL - Imaging and Cardiology EKG: report reviewed, image reviewed Echo: report reviewed (02/28/19 showed EF of 10-15%, dilation of all chambers, moderate AR, moderate to severe TR and RV hypokinesis. ) Cardiac cath: report reviewed (04/2017 showed patent coronaries, EF 10-15%. ) - Telemetry EKG Rhythm: Sinus Rhythm - EKG Sinus rhythms and dysrhythmias: sinus tachycardia
[2019-03-23] MEDS: ALDACTONE PO SCH (11:00)
--- NOTE | 2019-03-23 12:01 | Progress Note ---
Assessment and Plan Assessment and plan: 63-year-old male presents to the emergency room for redness of both the lower extremities for last 2 weeks. Patient also has increasing shortness of breath. Patient was recently discharged from this facility after being treated for CHF exacerbation. Acute on chronic systolic CHF Lasix iv, Beta blockers cardiology following Cellulitis both lower ext Cont Unasyn, Vancomycin rash both upper and lower ext Consult ID Nonischemic cardiomyopathy Acute on CKD Improving Cr 1.5 HTN Monotor BP Full code status History Interval history: Shortness of breath redness both feet Hospitalist Physical - Physical exam Narrative exam: Gen: Not in acute distress, HEENT: Normocephalic, atraumatic Neck: supple, no JVD Heart: S1 and S2 reg, no rubs or gallop Lungs: Bibasilar crackles, no rhonchi, no wheeze Abd: soft, Non tender, non distended, normal BS, Ext: Bilat edema,erythema, no cyanosis Neuro: Awake, alert, oriented, no focal neurological signs Skin:diffuse rash on both upper and lower ext - Constitutional Vitals: Temp Pulse Resp BP Pulse Ox 97.4 F L 96 H 20 141/103 97 03/23/19 06:02 03/23/19 09:16 03/23/19 09:16 03/23/19 06:02 03/23/19 09:57 General appearance: Present: no acute distress Results - Labs CBC & Chem 7: 03/23/19 04:29 03/23/19 04:29 Labs: Laboratory Last Values WBC 10.0 K/mm3 (4.5-11.0) 03/23/19 04:29 RBC 4.85 M/mm3 (3.65-5.03) 03/23/19 04:29 Hgb 14.0 gm/dl (11.8-15.2) 03/23/19 04:29 Hct 43.2 % (35.5-45.6) 03/23/19 04:29 MCV 89 fl (84-94) 03/23/19 04:29 MCH 29 pg (28-32) 03/23/19 04:29 MCHC 32 % (32-34) 03/23/19 04:29 RDW 15.2 % (13.2-15.2) 03/23/19 04:29 Plt Count 221 K/mm3 (140-440) 03/23/19 04:29 Lymph % (Auto) 10.1 % (13.4-35.0) L 03/23/19 04:29 [place]cd[place]ough % (Auto) 3.1 % (0.0-7.3) 03/23/19 04:29 Eos % (Auto) 4.5 % (0.0-4.3) H 03/23/19 04:29 Baso % (Auto) 1.2 % (0.0-1.8) 03/23/19 04:29 Lymph # 1.0 K/mm3 (1.2-5.4) L 03/23/19 04:29 [place] # 0.3 K/mm3 (0.0-0.8) 03/23/19 04:29 Eos # 0.4 K/mm3 (0.0-0.4) 03/23/19 04:29 Baso # 0.1 K/mm3 (0.0-0.1) 03/23/19 04:29 Seg Neutrophils % 81.1 % (40.0-70.0) H 03/23/19 04:29 Seg Neutrophils # 8.1 K/mm3 (1.8-7.7) H 03/23/19 04:29 PT 16.4 Sec. (12.2-14.9) H 03/21/19 14:31 INR 1.36 (0.87-1.13) H 03/21/19 14:31 APTT 25.8 Sec. (24.2-36.6) 03/21/19 14:31 Sodium 140 mmol/L (137-145) 03/23/19 04:29 Potassium 3.4 mmol/L (3.6-5.0) L D 03/23/19 04:29 Chloride 98.9 mmol/L (98-107) 03/23/19 04:29 Carbon Dioxide 27 mmol/L (22-30) 03/23/19 04:29 18 mmol/L 03/23/19 04:29 BUN 37 mg/dL (9-20) H 03/23/19 04:29 1.5 mg/dL (0.8-1.5) 03/23/19 04:29 Estimated GFR 48 ml/min 03/23/19 04:29 25 % 03/23/19 04:29 Glucose 122 mg/dL (75-100) H 03/23/19 04:29 7.2 % (4-6) H 03/22/19 00:14 305 Mosm/kg 03/22/19 12:39 11.7 mg/dL (3.5-7.6) H 03/22/19 12:39 Calcium 8.5 mg/dL (8.4-10.2) 03/23/19 04:29 1.00 mg/dL (0.1-1.2) 03/23/19 04:29 AST 28 units/L (5-40) 03/23/19 04:29 ALT 35 units/L (7-56) 03/23/19 04:29 61 units/L (35-129) 03/23/19 04:29 0.029 ng/mL (0.00-0.029) 03/21/19 17:08 NT-Pro-B Natriuret Pep 66004 pg/mL (0-900) H 03/21/19 14:31 6.2 g/dL (6.3-8.2) L 03/23/19 04:29 3.2 g/dL (3.9-5) L 03/23/19 04:29 1.1 % 03/23/19 04:29 Triglycerides 88 mg/dL (2-149) 03/21/19 14:31 Cholesterol 100 mg/dL (50-199) 03/21/19 14:31 67 mg/dL (50-130) 03/21/19 14:31 32 mg/dL (40-59) L 03/21/19 14:31 3.12 % 03/21/19 14:31 Yellow (Yellow) 03/21/19 17:15 Clear (Clear) 03/21/19 17:15 5.0 (5.0-7.0) 03/21/19 17:15 Ur Specific [place] 1.012 (1.003-1.030) 03/21/19 17:15 30 mg/dl mg/dL (Negative) 03/21/19 17:15 Neg mg/dL (Negative) 03/21/19 17:15 Neg mg/dL (Negative) 03/21/19 17:15 Neg (Negative) 03/21/19 17:15 Neg (Negative) 03/21/19 17:15 Neg (Negative) 03/21/19 17:15 2.0 mg/dL (<2.0) 03/21/19 17:15 Ur Leukocyte Esterase Neg (Negative) 03/21/19 17:15 1.0 /HPF (0.0-6.0) 03/21/19 17:15 2.0 /HPF (0.0-6.0) 03/21/19 17:15 40.4 mg/dL (0.1-20.0) H 03/22/19 Unknown 18 mg/dL (5-11.8) H 03/22/19 Unknown Active Medications - Current Medications Current Medications: Generic Name Dose Route Start Last Admin Trade Name Freq PRN Reason Stop Dose Admin Acetaminophen 650 mg 03/22/19 00:02 Tylenol PO Q4H PRN Pain MILD(1-3)/Fever >100.5/RUIZ Albuterol 2.5 mg 03/22/19 01:23 03/23/19 09:22 Proventil IH 2.5 mg QIDRT PRN Administration Shortness Of Breath Arformoterol Tartrate 15 mcg 03/22/19 08:00 03/23/19 09:17 Brovana Nebu IH 15 mcg Q12HRT ROSE Administration Aspirin 81 mg 03/22/19 10:00 03/23/19 10:07 Halfprin Ec PO 81 mg DAILY ROSE Administration Budesonide 1 mg 03/22/19 08:00 03/23/19 09:16 Pulmicort IH 1 mg Q12HRT ROSE Administration Carvedilol 3.125 mg 03/22/19 10:00 03/23/19 10:07 Coreg PO 3.125 mg BID ROSE Administration Famotidine 20 mg 03/22/19 10:00 03/23/19 10:07 Pepcid PO 20 mg BID ROSE Administration Furosemide 40 mg 03/22/19 06:00 03/23/19 06:07 Lasix IV 40 mg 0600,1800 ROSE Administration Hydromorphone HCl 0.5 mg 03/22/19 00:02 Dilaudid IV Q3H PRN Pain , Severe (7-10) Ampicillin Sodium/Sulbactam Sodium 3 gm in 100 mls @ 100 mls/hr 03/22/19 01:00 03/23/19 06:19 Unasyn/Ns 3 Gm/100 Ml IV 100 mls/hr Q6HR ROSE Administration Protocol Vancomycin HCl 1,500 mg/ 530 mls @ 333.333 mls/hr 03/22/19 01:30 03/23/19 01:00 Sodium Chloride IV 333.333 mls/hr Q24H ROSE Administration Ondansetron HCl 4 mg 03/22/19 00:02 03/22/19 12:11 Zofran IV 4 mg Q8H PRN Administration Nausea And Vomiting Oxycodone/Acetaminophen 1 tab 03/21/19 23:32 03/23/19 10:12 Percocet 5/325 PO 1 tab Q6H PRN Administration Pain, Moderate (4-6) Potassium Chloride 20 meq 03/22/19 01:00 03/23/19 01:41 K-Dur PO 20 meq Q12H ROSE Administration Sodium Chloride 10 ml 03/22/19 10:00 03/23/19 10:07 Sodium Chloride Flush Syringe 10 Ml IV 10 ml BID ROSE Administration Sodium Chloride 10 ml 03/22/19 00:02 Sodium Chloride Flush Syringe 10 Ml IV PRN PRN LINE FLUSH Spironolactone 50 mg 03/23/19 11:00 Aldactone PO QDAY ROSE
--- NOTE | 2019-03-23 13:18 | XRay Report ---
Bilateral feet-4 views INDICATION: Acute generalized right foot pain and swelling. COMPARISON: None. IMPRESSION: Patient is wearing socks with radiopacities which limits evaluation. Mild soft tissue sw elling along the dorsum of each forefoot with no acute fracture or malalignment identified bilaterall y. No significant DJD. Signer Name: Jagjit Roberts MD Signed: 03/23/2019 1:13 PM Workstation Name: [id number]
--- NOTE | 2019-03-23 15:01 | Consultation ---
History of Present Illness - Reason for Consult Consult date: 03/23/19 b/L LE rash / cellulitis Requesting physician: REUBEN ALFARO - History of Present Illness The patient is a 63-year-old male with congestive heart failure who presented to the emergency room on 03/29/2019 with complaints of shortness of breath as well as redness involving both his feet. He had recently been discharged from the hospital on 03/04/2019 following a CHF exacerbation. Noted to have bilateral lower extremity swelling. He was started on diuretics as well as empiric antibiotics for presumed cellulitis. Infectious diseases was consulted for further evaluation. He denies any fevers or chills. He complains of quite severe burning type pain in bilateral lower extremities mainly involving the feet and toes. He has a cat and reports possibly several cat scratches. Review of Systems: General: no fevers,chills or rigors HEENT: no new visual disturbance Respiratory: No cough, sputum, hemoptysis or shortness of breath Cardiovascular: No chest pain, syncope Gastrointestinal: No nausea, vomiting or diarrhea Genitourinary: No dysuria or hematuria Musculoskeletal: No new or worsening neck pain or back pain Neurologic: No headaches, seizures Hematologic: No easy bruising or bleeding Endocrine: No night sweats or acute weight loss Skin: negative for rash, jaundice Psychiatric: No suicidal or homicidal ideation Past History Past Medical History: heart failure, hypertension Medications and Allergies Allergies Allergy/AdvReac Type Severity Reaction Status Date / Time Penicillins Allergy Hives Verified 02/15/17 14:05 venom-honey bee Allergy Hives Verified 02/15/17 14:05 [bee venom (honey bee)] morphine AdvReac Unknown Verified 02/15/17 14:05 Home Medications Medication Instructions Recorded Confirmed Last Taken Type ALBUTEROL Inhaler (OR & NICU) 2 puff IH QID PRN #2 inha 04/12/17 03/21/19 03/02/19 09:00 Rx [ProAir HFA Inhaler] Carvedilol [Coreg] 3.125 mg PO BID #60 tablet 03/04/19 03/21/19 Unknown Rx Aspirin EC [Halfprin EC] 81 mg PO DAILY 03/21/19 03/21/19 Unknown History Budesonide/Formoterol Fumarate 2 puff IH BID 03/21/19 03/21/19 Unknown History [Symbicort 160-4.5 Mcg Inhaler] Furosemide [Lasix TAB] 40 mg PO DAILY@0600 03/21/19 03/21/19 Unknown History Active Meds: Active Medications Acetaminophen (Tylenol) 650 mg PO Q4H PRN PRN Reason: Pain MILD(1-3)/Fever >100.5/RUIZ Albuterol (Proventil) 2.5 mg IH QIDRT PRN PRN Reason: Shortness Of Breath Last Admin: 03/23/19 09:22 Dose: 2.5 mg Documented by: Arformoterol Tartrate (Brovana Nebu) 15 mcg IH Q12HRT [facility] Last Admin: 03/23/19 09:17 Dose: 15 mcg Documented by: Aspirin (Halfprin Ec) 81 mg PO DAILY [facility] Last Admin: 03/23/19 10:07 Dose: 81 mg Documented by: Budesonide (Pulmicort) 1 mg IH Q12HRT [facility] Last Admin: 03/23/19 09:16 Dose: 1 mg Documented by: Carvedilol (Coreg) 3.125 mg PO BID [facility] Last Admin: 03/23/19 10:07 Dose: 3.125 mg Documented by: Famotidine (Pepcid) 20 mg PO BID [facility] Last Admin: 03/23/19 10:07 Dose: 20 mg Documented by: Furosemide (Lasix) 40 mg IV 0600,1800 [facility] Last Admin: 03/23/19 06:07 Dose: 40 mg Documented by: Hydromorphone HCl (Dilaudid) 0.5 mg IV Q3H PRN PRN Reason: Pain , Severe (7-10) Ampicillin Sodium/Sulbactam Sodium (Unasyn/Ns 3 Gm/100 Ml) 3 gm in 100 mls @ 100 mls/hr IV Q6HR [facility]; Protocol Last Admin: 03/23/19 12:54 Dose: 100 mls/hr Documented by: Vancomycin HCl 1,500 mg/ (Sodium Chloride) 530 mls @ 333.333 mls/hr IV Q24H [facility] Last Admin: 03/23/19 01:00 Dose: 333.333 mls/hr Documented by: Ondansetron HCl (Zofran) 4 mg IV Q8H PRN PRN Reason: Nausea And Vomiting Last Admin: 03/22/19 12:11 Dose: 4 mg Documented by: Oxycodone/Acetaminophen (Percocet 5/325) 1 tab PO Q6H PRN PRN Reason: Pain, Moderate (4-6) Last Admin: 03/23/19 10:12 Dose: 1 tab Documented by: Potassium Chloride (K-Dur) 20 meq PO Q12H [facility] Last Admin: 03/23/19 12:54 Dose: 20 meq Documented by: Sodium Chloride (Sodium Chloride Flush Syringe 10 Ml) 10 ml IV BID [facility] Last Admin: 03/23/19 10:07 Dose: 10 ml Documented by: Sodium Chloride (Sodium Chloride Flush Syringe 10 Ml) 10 ml IV PRN PRN PRN Reason: LINE FLUSH Spironolactone (Aldactone) 50 mg PO QDAY [facility] Last Admin: 03/23/19 11:00 Dose: 50 mg Documented by: Physical Examination - Physical Exam Narrative exam: Physical Exam: Constitutional: Alert, cooperative. No acute distress Head, Ears, Nose: Normocephalic, atraumatic. External ears, nose normal Eyes: Conjunctivae/corneas clear. No icterus. No ptosis. Neck: Supple, no meningeal signs Oral: several missing teeth, no thrush Cardiovascular: S1, S2 normal. Respiratory: Good air entry, clear to auscultation bilaterally GI: Soft, non-tender; bowel sounds normal. No peritoneal signs Musculoskeletal: No pedal edema, no cyanosis. b/l feet distally with erythema and tenderness, slight warmth, small wound on left dorsum with serous drainage. b/l dystrophic toe nails. Skin: No rash or abscess Hem/Lymphatic: No palpable cervical or supraclavicular nodes. No lymphangitis Psych: Mood ok. Affect flat Neurological: Awake, alert, oriented. No gross abnormality - Constitutional Vitals: Vital Signs Temp Pulse Resp BP Pulse Ox 97.4 F L 96 H 20 141/103 97 03/23/19 06:02 03/23/19 09:16 03/23/19 09:16 03/23/19 06:02 03/23/19 09:57 Temperature -Last 24 Hours Temperature 97.4 F Temperature 98.2 F Temperature 97.3 F Results - Labs CBC & Chem 7: 03/23/19 04:29 03/23/19 04:29 Labs: Abnormal lab results 03/22/19 03/23/19 03/23/19 Range/Units Unknown 04:29 04:29 Lymph % (Auto) 10.1 L (13.4-35.0) % Eos % (Auto) 4.5 H (0.0-4.3) % Lymph # 1.0 L (1.2-5.4) K/mm3 Seg Neutrophils % 81.1 H (40.0-70.0) % Seg Neutrophils # 8.1 H (1.8-7.7) K/mm3 Potassium 3.4 L D (3.6-5.0) mmol/L BUN 37 H (9-20) mg/dL Glucose 122 H (75-100) mg/dL Total Protein 6.2 L (6.3-8.2) g/dL Albumin 3.2 L (3.9-5) g/dL Urine Creatinine 40.4 H (0.1-20.0) mg/dL Urine Total Protein 18 H (5-11.8) mg/dL - Imaging and Cardiology Chest x-ray: report reviewed, image reviewed (clear lung rodgers) Assessment and Plan Cultures: 03/21/2019 blood culture: No growth A/P: 63-year-old male with congestive heart failure who presented to the emergency room on 03/29/2019 with complaints of shortness of breath as well as redness involving both his feet. He had recently been discharged from the hospital on 03/04/2019 following a CHF exacerbation. Now with: 1) Bilateral feet erythema and tenderness: Not seem classical cellulitis. He does have a small open wound on his left dorsum of the foot with surrounding redness as well as tenderness. Also reports some cat scratches. Evaluate for any vascular insufficiency especially with evidence of dystrophic toenails. Also, he has several scabs on bilateral lower and upper extremities but not on his trunk, ?neurotic dermatosis. 2) Acute on chronic systolic CHF: on diuresis. 3) JOHN on CKD: nephrology following. Renally dose abx. Recs: empiric Unasyn and Vancomycin for now Arterial doppler and venous duplex ordered continue wound care D/W Dr. Alfaro. Diamond Cohen MD, FACP [facility] C: [phone] O: [phone] F: [phone]
--- NOTE | 2019-03-23 17:09 | Vascular Lab Report ---
DUPLEX DOPPLER LOWER EXTREMITY VEINS, BILATERAL INDICATION: b/l edema, cellulitis. TECHNIQUE: Duplex doppler imaging was performed through the veins of both lower extremities using venous nick dannielle and other maneuvers. COMPARISON: No relevant prior imaging study available. FINDINGS: Right Common femoral vein: Negative. Right Superficial femoral vein: Negative. Right Popliteal vein: Negative. Right Calf veins: Negative. Left Common femoral vein: Negative. Left Superficial femoral vein: Negative. Left Popliteal vein: Negative. Left Calf veins: Negative. Additional findings: Mild generalized swelling in the right greater than left lower extremities. IMPRESSION: 1. No sonographic evidence for DVT in either lower extremity. 2. Mild right greater than left generalized lower extremity soft tissue swelling. Signer Name: Jagjit Roberts MD Signed: 03/23/2019 5:05 PM Workstation Name: [id number]
--- NOTE | 2019-03-23 17:14 | Vascular Lab Report ---
DUPLEX DOPPLER LOWER EXTREMITY ARTERIAL, BILATERAL INDICATION: b/l cellulitis and lower extremity pain. TECHNIQUE: Arterial duplex examination of both lower extremities performed using B-mode, color flow and spectral Doppler assessment. FINDINGS: RIGHT: Common Femoral Artery: PSV 55 cm/sec. Triphasic waveform. Proximal SFA: PSV 62 cm/sec. Triphasic waveform. Mid SFA: PSV 63 cm/sec. Triphasic waveform. Distal SFA: PSV 58 cm/sec. Triphasic waveform. Popliteal artery: PSV 62 cm/sec. Triphasic waveform. Posterior tibial artery: PSV 29 cm/sec. Triphasic waveform. Dorsalis Pedis Artery: PSV 43 cm/sec. Triphasic waveform. LEFT: Common Femoral Artery: PSV 56 cm/sec. Triphasic waveform. Proximal SFA: PSV 63 cm/sec. Triphasic waveform. Mid SFA: PSV 68 cm/sec. Triphasic waveform. Distal SFA: PSV 76 cm/sec. Triphasic waveform. Popliteal artery: PSV 72 cm/sec. Triphasic waveform. Posterior tibial artery: PSV 47 cm/sec. Triphasic waveform. Dorsalis Pedis Artery: PSV 45 cm/sec. Triphasic waveform. IMPRESSION: 1. No significant lower extremity peripheral artery disease. Ankle-Brachial Index (RAPHAEL): * Calcified arteries > 1.4 * Normal = 0.9-1.4 * Mild PAD = 0.7-0.89 * Moderate PAD = 0.51-0.69 * Severe PAD < 0.5 Doppler Waveform: * Triphasic is normal. * Biphasic is abnormal if clear transition from triphasic signal along vascular tree. * Monophasic is abnormal. Signer Name: Jagjit Roberts MD Signed: 03/23/2019 5:10 PM Workstation Name: [id number]
[2019-03-24] MEDS: UNASYN/NS 3 GM/100 ML 3 GM/100 ML BAG IV SCH ×5 (01:20→18:02)
[2019-03-24] MEDS: K-DUR PO SCH (02:27)
[2019-03-24] MEDS: PERCOCET 5/325 PO PRN ×2 (03:21→18:05)
[2019-03-24] MEDS: VANCOMYCIN 1,500 MG in NACL 0.9% 500 ML 500 ML IV SCH (03:38)
[2019-03-24 05:35] LABS: Hematocrit 42.9 % (35.5-45.6); Hemoglobin 13.8 gm/dl (11.8-15.2); Mean Corpuscular HGB Conc 32 % (32-34); Mean Corpuscular Volume 90 fl (84-94); Platelet Count 207 K/mm3 (140-440); Red Blood Count 4.77 M/mm3 (3.65-5.03); Red Cell Distribution Width 15.4 % (13.2-15.2)
[2019-03-24 05:56] LABS: Calcium 8.5 mg/dL (8.4-10.2)
[2019-03-24] MEDS: LASIX IV SCH ×2 (06:08→18:03)
[2019-03-24] MEDS: SODIUM CHLORIDE FLUSH SYRINGE 10 ML IV SCH ×2 (09:22→21:49)
[2019-03-24] MEDS: PEPCID PO SCH ×2 (09:22→21:49)
[2019-03-24] MEDS: COREG PO SCH ×2 (09:22→21:48)
[2019-03-24] MEDS: ALDACTONE PO SCH (09:22)
[2019-03-24] MEDS: HALFPRIN EC PO SCH (09:25)
--- NOTE | 2019-03-24 09:31 | Progress Note ---
Assessment and Plan The patient's cardiac status is improving. Continue diuresis as per nephrology. ID also following - recommendations noted. The patient has been seen in conjunction with Dr. Valdez, who agrees with the assessment and plan. Subjective Date of service: 03/24/19 Interval history: The patient is sitting up in bed in [facility]. He has no cardiac complaints, but is angry with his nurse this morning. BLE edema remains, left foot now wrapped in gauze. Telemetry reviewed - ST in 100s. BLE venous and arterial dopplers negative for acute findings. Objective Last Vital Signs Temp 98.7 F 03/24/19 05:34 Pulse 66 03/24/19 05:34 Resp 16 03/24/19 05:34 BP 125/89 03/24/19 05:34 Pulse Ox 94 03/24/19 05:34 - Physical Examination General: No Apparent Distress HEENT: Positive: PERRL, Normocephaly, Mucus Membranes Moist Neck: Positive: neck supple, trachea midline Cardiac: Positive: Regular Rhythm Lungs: Positive: Normal Exam Neuro: Positive: Grossly Intact Abdomen: Positive: Unremarkable. Negative: Tender /Rectal: Other (deferred) Skin: Positive: Wound (BLE and BUE) Musculoskeletal: Normal Range of Motion Extremities: Present: +2 Edema (BLE) - Labs and Meds CBC 03/24/19 Range/Units 04:49 WBC 11.3 H (4.5-11.0) K/mm3 RBC 4.77 (3.65-5.03) M/mm3 Hgb 13.8 (11.8-15.2) gm/dl Hct 42.9 (35.5-45.6) % Plt Count 207 (140-440) K/mm3 Comprehensive Metabolic Panel 03/24/19 Range/Units 04:49 Sodium 142 (137-145) mmol/L Potassium 3.7 (3.6-5.0) mmol/L Chloride 98.2 (98-107) mmol/L Carbon Dioxide 30 (22-30) mmol/L BUN 36 H (9-20) mg/dL Creatinine 1.6 H (0.8-1.5) mg/dL Glucose 134 H (75-100) mg/dL Calcium 8.5 (8.4-10.2) mg/dL - Imaging and Cardiology EKG: report reviewed, image reviewed Echo: report reviewed (02/28/19 showed EF of 10-15%, dilation of all chambers, moderate AR, moderate to severe TR and RV hypokinesis. ) Cardiac cath: report reviewed (04/2017 showed patent coronaries, EF 10-15%. ) - Telemetry EKG Rhythm: Sinus Tachycardia - EKG Sinus rhythms and dysrhythmias: sinus tachycardia
[2019-03-24] MEDS: PULMICORT IH SCH ×2 (10:34→20:42)
[2019-03-24] MEDS: BROVANA NEBU IH SCH ×2 (10:34→20:41)
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
--- NOTE | 2019-03-24 11:36 | Progress Note ---
Subjective Interval history: Patient was seen today for follow-up on multiple renal related issues feeling well, swelling is improving Interdisciplinary notes were also reviewed Vitals intake output medications were reviewed Past medical history: Reviewed Family, social history: Reviewed Allergies: Reviewed Physical examination General: No acute distress Vitals: Reviewed HEENT: Oral mucosa moist no icterus Neck: Supple no thyromegaly nodular mass or JVD Chest: Clear to auscultation anteriorly Heart: Regular rate and rhythm S1-S2 heard no S3-S4 Abdomen: Soft nontender no suprapubic masses no organomegaly Extremity: Dry skin swelling improving Psych: No evidence of any agitation and aggression noted Assessment and plan: Renal failure, with volume overload anasarca-like picture creatinine is currently better improving with diuresis Hypokalemia consider adding spironolactone in his case and follow advised to make an appointment in the office next to 3 days for follow-up Fluid restriction sodium restriction, must follow a proper diet plan Patient has been noncompliant with this All renal related issues were discussed with the patient, patient does exhibit good understanding, lab results were also discussed with patient in simple [place] Prognosis: Guarded We'll continue to follow and make recommendation from renal standpoint Objective - Vital Signs Vital signs: Vital Signs - 12hr 03/24/19 03/24/19 03/24/19 03:21 04:21 05:34 Temperature 98.7 F Pulse Rate 66 Pulse Rate [ Anterior Bilateral Throughout] Pulse Rate [ Right Lower Lobe] Respiratory 16 17 16 Rate Respiratory Rate [Anterior Bilateral Throughout] Respiratory Rate [Right Lower Lobe] Blood Pressure 125/89 O2 Sat by Pulse 94 Oximetry 03/24/19 03/24/19 10:00 10:30 Temperature Pulse Rate Pulse Rate [ 94 H Anterior Bilateral Throughout] Pulse Rate [ 96 H Right Lower Lobe] Respiratory Rate Respiratory 18 Rate [Anterior Bilateral Throughout] Respiratory 16 Rate [Right Lower Lobe] Blood Pressure O2 Sat by Pulse 98 Oximetry - Lab 03/24/19 04:49 03/24/19 04:49 Most recent lab results Calcium 8.5 mg/dL (8.4-10.2) 03/24/19 04:49 40.4 mg/dL (0.1-20.0) H 03/22/19 Unknown 18 mg/dL (5-11.8) H 03/22/19 Unknown Medications & Allergies - Medications Allergies/Adverse Reactions: Allergies Penicillins Allergy (Verified 02/15/17 14:05) Hives venom-honey bee [bee venom (honey bee)] Allergy (Verified 02/15/17 14:05) Hives morphine Adverse Reaction (Verified 02/15/17 14:05) Unknown Home Medications: Home Medications Medication Instructions Recorded Confirmed Last Taken Type ALBUTEROL Inhaler (OR & NICU) 2 puff IH QID PRN #2 inha 04/12/17 03/21/19 09:00 Rx [ProAir HFA Inhaler] Carvedilol [Coreg] 3.125 mg PO BID #60 tablet 03/04/19 03/21/19 Unknown Rx Aspirin EC [Halfprin EC] 81 mg PO DAILY 03/21/19 03/21/19 Unknown History Budesonide/Formoterol Fumarate 2 puff IH BID 03/21/19 03/21/19 Unknown History [Symbicort 160-4.5 Mcg Inhaler] Furosemide [Lasix TAB] 40 mg PO DAILY@0600 03/21/19 03/21/19 Unknown History Active Medications: Generic Name Dose Route Start Last Admin Trade Name Freq PRN Reason Stop Dose Admin Acetaminophen 650 mg 03/22/19 00:02 Tylenol PO Q4H PRN Pain MILD(1-3)/Fever >100.5/RUIZ Albuterol 2.5 mg 03/22/19 01:23 03/23/19 09:22 Proventil IH 2.5 mg QIDRT PRN Administration Shortness Of Breath Arformoterol Tartrate 15 mcg 03/22/19 08:00 03/24/19 10:34 Brovana Nebu IH 15 mcg Q12HRT ROSE Administration Aspirin 81 mg 03/22/19 10:00 03/24/19 09:25 Halfprin Ec PO 81 mg DAILY ROSE Administration Budesonide 1 mg 03/22/19 08:00 03/24/19 10:34 Pulmicort IH 1 mg Q12HRT ROSE Administration Carvedilol 3.125 mg 03/22/19 10:00 03/24/19 09:22 Coreg PO 3.125 mg BID ROSE Administration Famotidine 20 mg 03/22/19 10:00 03/24/19 09:22 Pepcid PO 20 mg BID ROSE Administration Furosemide 40 mg 03/22/19 06:00 03/24/19 06:08 Lasix IV 40 mg 0600,1800 ROSE Administration Hydromorphone HCl 0.5 mg 03/22/19 00:02 Dilaudid IV Q3H PRN Pain , Severe (7-10) Ampicillin Sodium/Sulbactam Sodium 3 gm in 100 mls @ 100 mls/hr 03/22/19 01:00 03/24/19 06:08 Unasyn/Ns 3 Gm/100 Ml IV 100 mls/hr Q6HR ROSE Administration Protocol Vancomycin HCl 1,500 mg/ 530 mls @ 333.333 mls/hr 03/22/19 01:30 03/24/19 03:38 Sodium Chloride IV 333.333 mls/hr Q24H ROSE Administration Ondansetron HCl 4 mg 03/22/19 00:02 03/22/19 12:11 Zofran IV 4 mg Q8H PRN Administration Nausea And Vomiting Oxycodone/Acetaminophen 1 tab 03/21/19 23:32 03/24/19 03:21 Percocet 5/325 PO 1 tab Q6H PRN Administration Pain, Moderate (4-6) Sodium Chloride 10 ml 03/22/19 10:00 03/24/19 09:22 Sodium Chloride Flush Syringe 10 Ml IV 10 ml BID ROSE Administration Sodium Chloride 10 ml 03/22/19 00:02 Sodium Chloride Flush Syringe 10 Ml IV PRN PRN LINE FLUSH Spironolactone 50 mg 03/23/19 11:00 03/24/19 09:22 Aldactone PO 50 mg QDAY ROSE Administration
--- NOTE | 2019-03-24 14:05 | Progress Note ---
Assessment and Plan Cultures: 03/21/2019 blood culture: No growth A/P: 63-year-old male with congestive heart failure who presented to the emergency room on 03/29/2019 with complaints of shortness of breath as well as redness involving both his feet. He had recently been discharged from the hospital on 03/04/2019 following a CHF exacerbation. Now with: 1) Bilateral feet erythema and tenderness: does not seem classical cellulitis. He does have a small open wound on his left dorsum of the foot with surrounding redness as well as tenderness. Also reports some cat scratches. DVT scan negative. Arterial duplex also negative for occlusive disease. Also, he has several scabs on bilateral lower and upper extremities but not on his trunk, ?neurotic dermatosis. 2) Acute on chronic systolic CHF: on diuresis. 3) JOHN on CKD: nephrology following. Renally dose abx. Recs: continue empiric Unasyn and Vancomycin for now, target vancomycin trough: 10-15 mcg/ml continue wound care agree with psych eval D/W Dr. Alfaro. Diamond Cohen MD, FACP [facility] C: [phone] O: [phone] F: [phone] Subjective Date of service: 03/24/19 Interval history: No fever. No new complaints. Feels like his legs are slightly better. Objective - Exam Narrative Exam: Physical Exam: Constitutional: Alert, cooperative. No acute distress Head, Ears, Nose: Normocephalic, atraumatic. External ears, nose normal Eyes: Conjunctivae/corneas clear. No icterus. No ptosis. Neck: Supple, no meningeal signs Oral: several missing teeth, no thrush Cardiovascular: S1, S2 normal. Respiratory: Good air entry, clear to auscultation bilaterally GI: Soft, non-tender; bowel sounds normal. No peritoneal signs Musculoskeletal: No pedal edema, no cyanosis. b/l feet distally with erythema and tenderness, slight warmth, small wound on left dorsum with serous drainage. b/l dystrophic toe nails. Skin: No rash or abscess Hem/Lymphatic: No palpable cervical or supraclavicular nodes. No lymphangitis Psych: Affect flat Neurological: Awake, alert, oriented. No gross abnormality - Constitutional Vitals: Vital Signs Temp Pulse Resp BP Pulse Ox 98.7 F 96 H 16 125/89 98 03/24/19 05:34 03/24/19 10:30 03/24/19 10:30 03/24/19 05:34 03/24/19 10:00 Temperature -Last 24 Hours Temperature 98.7 F Temperature 98.3 F Temperature 97.9 F - Labs CBC & Chem 7: 03/24/19 04:49 03/24/19 04:49 Labs: Abnormal lab results 03/24/19 03/24/19 Range/Units 04:49 04:49 WBC 11.3 H (4.5-11.0) K/mm3 RDW 15.4 H (13.2-15.2) % BUN 36 H (9-20) mg/dL Creatinine 1.6 H (0.8-1.5) mg/dL Glucose 134 H (75-100) mg/dL
[2019-03-25] MEDS: UNASYN/NS 3 GM/100 ML 3 GM/100 ML BAG IV SCH ×2 (00:23→06:49)
[2019-03-25] MEDS: VANCOMYCIN 1,500 MG in NACL 0.9% 500 ML 500 ML IV SCH ×2 (01:24→02:03)
[2019-03-25] MEDS: ZOFRAN IV PRN (01:33)
[2019-03-25] MEDS: DILAUDID IV PRN ×2 (02:08→11:09)
[2019-03-25] MEDS: LASIX IV SCH (06:50)
[2019-03-25 07:22] LABS: Hematocrit 44.6 % (35.5-45.6); Hemoglobin 14.5 gm/dl (11.8-15.2); Mean Corpuscular HGB Conc 33 % (32-34); Mean Corpuscular Volume 88 fl (84-94); Platelet Count 217 K/mm3 (140-440); Red Blood Count 5.06 M/mm3 (3.65-5.03); Red Cell Distribution Width 15.4 % (13.2-15.2)
[2019-03-25] MEDS ORDERED: PULMICORT IH SCH (08:31)
[2019-03-25] MEDS: PULMICORT IH SCH (08:33)
--- NOTE | 2019-03-25 09:41 | Progress Note ---
Subjective Date of service: 03/25/19 Objective - Vital Signs Vital signs: Vital Signs - 12hr 03/24/19 03/24/19 03/25/19 21:48 22:00 02:08 Temperature Pulse Rate 110 H Pulse Rate [ 110 H Right Radial] Respiratory 20 Rate Blood Pressure 152/101 O2 Sat by Pulse Oximetry 03/25/19 05:10 Temperature 97.8 F Pulse Rate 103 H Pulse Rate [ Right Radial] Respiratory 24 Rate Blood Pressure 136/88 O2 Sat by Pulse 95 Oximetry - Lab 03/25/19 06:12 03/25/19 06:12 Most recent lab results Calcium 9.0 mg/dL (8.4-10.2) 03/25/19 06:12 40.4 mg/dL (0.1-20.0) H 03/22/19 Unknown 18 mg/dL (5-11.8) H 03/22/19 Unknown Medications & Allergies - Medications Allergies/Adverse Reactions: Allergies Penicillins Allergy (Verified 02/15/17 14:05) Hives venom-honey bee [bee venom (honey bee)] Allergy (Verified 02/15/17 14:05) Hives morphine Adverse Reaction (Verified 02/15/17 14:05) Unknown Home Medications: Home Medications Medication Instructions Recorded Confirmed Last Taken Type ALBUTEROL Inhaler (OR & NICU) 2 puff IH QID PRN #2 inha 04/12/17 03/21/19 03/02/19 09:00 Rx [ProAir HFA Inhaler] Carvedilol [Coreg] 3.125 mg PO BID #60 tablet 03/04/19 03/21/19 Unknown Rx Aspirin EC [Halfprin EC] 81 mg PO DAILY 03/21/19 03/21/19 Unknown History Budesonide/Formoterol Fumarate 2 puff IH BID 03/21/19 03/21/19 Unknown History [Symbicort 160-4.5 Mcg Inhaler] Furosemide [Lasix TAB] 40 mg PO DAILY@0600 03/21/19 03/21/19 Unknown History Active Medications: Generic Name Dose Route Start Last Admin Trade Name Freq PRN Reason Stop Dose Admin Acetaminophen 650 mg 03/22/19 00:02 Tylenol PO Q4H PRN Pain MILD(1-3)/Fever >100.5/RUIZ Albuterol 2.5 mg 03/22/19 01:23 03/23/19 09:22 Proventil IH 2.5 mg QIDRT PRN Administration Shortness Of Breath Arformoterol Tartrate 15 mcg 03/22/19 08:00 03/24/19 20:41 Juliet Pepe IH 15 mcg Q12HRT ROSE Administration Aspirin 81 mg 03/22/19 10:00 03/24/19 09:25 Halfprin Ec PO 81 mg DAILY ROSE Administration Budesonide 0.5 mg 03/25/19 08:31 Pulmicort IH Q12HRT ROSE Carvedilol 3.125 mg 03/22/19 10:00 03/24/19 21:48 Coreg PO 3.125 mg BID ROSE Administration Famotidine 20 mg 03/22/19 10:00 03/24/19 21:49 Pepcid PO Not Given BID ROSE Furosemide 40 mg 03/22/19 06:00 03/25/19 06:50 Lasix IV 40 mg 0600,1800 ROSE Administration Hydromorphone HCl 0.5 mg 03/22/19 00:02 03/25/19 02:08 Dilaudid IV 0.5 mg Q3H PRN Administration Pain , Severe (7-10) Ampicillin Sodium/Sulbactam Sodium 3 gm in 100 mls @ 100 mls/hr 03/22/19 01:00 03/25/19 06:49 Unasyn/Ns 3 Gm/100 Ml IV 100 mls/hr Q6HR ROSE Administration Protocol Vancomycin HCl 1,500 mg/ 530 mls @ 333.333 mls/hr 03/22/19 01:30 03/25/19 02:03 Sodium Chloride IV 333.333 mls/hr Q24H ROSE Administration Ondansetron HCl 4 mg 03/22/19 00:02 03/25/19 01:33 Zofran IV 4 mg Q8H PRN Administration Nausea And Vomiting Oxycodone/Acetaminophen 1 tab 03/21/19 23:32 03/24/19 18:05 Percocet 5/325 PO 1 tab Q6H PRN Administration Pain, Moderate (4-6) Sodium Chloride 10 ml 03/22/19 10:00 03/24/19 21:49 Sodium Chloride Flush Syringe 10 Ml IV 10 ml BID ROSE Administration Sodium Chloride 10 ml 03/22/19 00:02 Sodium Chloride Flush Syringe 10 Ml IV PRN PRN LINE FLUSH Spironolactone 50 mg 03/23/19 11:00 03/24/19 09:22 Aldactone PO 50 mg QDAY ROSE Administration
[2019-03-25] MEDS: HALFPRIN EC PO SCH (10:58)
[2019-03-25] MEDS: PEPCID PO SCH (10:58)
[2019-03-25] MEDS: ALDACTONE PO SCH (10:58)
[2019-03-25] MEDS: COREG PO SCH (10:58)
[2019-03-25] MEDS: SODIUM CHLORIDE FLUSH SYRINGE 10 ML IV SCH (10:59)
--- NOTE | 2019-03-25 12:19 | Progress Note ---
Assessment and Plan Agree with present cardiac management, monitor renal indices closely. No ACEI/ARB in setting of renal insufficiency. Management of BLE wounds per ID team. The patient has been seen in conjunction with Dr. Jessica who agrees with the assessment and plan of care. - Patient Problems (1) Leg lesion Current Visit: Yes Status: Acute (2) Acute on chronic systolic heart failure Current Visit: Yes Status: Acute (3) Nonischemic cardiomyopathy Current Visit: Yes Status: Chronic (4) NSVT (nonsustained ventricular tachycardia) Current Visit: Yes Status: Chronic (5) Sinus tachycardia Current Visit: Yes Status: Acute (6) Tricuspid valve regurgitation Current Visit: Yes Status: Chronic (7) Hypertension Current Visit: Yes Status: Chronic Qualifiers: Hypertension type: essential hypertension Qualified Code(s): I10 - Essential (primary) hypertension (8) CKD (chronic kidney disease) Current Visit: Yes Status: Chronic Qualifiers: Subjective Date of service: 03/25/19 Principal diagnosis: HF; BLE cellulitis Interval history: pt resting in bed, no current cardiac complaints. BLE wounds and BLE swelling persists. Objective Last Vital Signs Temp 97.8 F 03/25/19 05:10 Pulse 103 H 03/25/19 05:10 Resp 24 03/25/19 05:10 BP 136/88 03/25/19 05:10 Pulse Ox 95 03/25/19 05:10 - Physical Examination General: No Apparent Distress HEENT: Positive: PERRL, Normocephaly, Mucus Membranes Moist Neck: Positive: neck supple, trachea midline Cardiac: Positive: Reg Rate and Rhythm, S1/S2 Lungs: Positive: Decreased Breath Sounds Neuro: Positive: Grossly Intact Abdomen: Positive: Unremarkable. Negative: Tender Skin: Positive: Wound (BLE and BUE) Musculoskeletal: Normal Range of Motion Extremities: Present: +2 Edema (BLE) - Labs and Meds CBC 03/25/19 Range/Units 06:12 WBC 11.4 H (4.5-11.0) K/mm3 RBC 5.06 H (3.65-5.03) M/mm3 Hgb 14.5 (11.8-15.2) gm/dl Hct 44.6 (35.5-45.6) % Plt Count 217 (140-440) K/mm3 Comprehensive Metabolic Panel 03/25/19 Range/Units 06:12 Sodium 143 (137-145) mmol/L Potassium 4.4 (3.6-5.0) mmol/L Chloride 100.7 (98-107) mmol/L Carbon Dioxide 27 (22-30) mmol/L BUN 35 H (9-20) mg/dL Creatinine 1.5 (0.8-1.5) mg/dL Glucose 118 H (75-100) mg/dL Calcium 9.0 (8.4-10.2) mg/dL - Imaging and Cardiology EKG: report reviewed, image reviewed Echo: report reviewed (02/28/19 showed EF of 10-15%, dilation of all chambers, moderate AR, moderate to severe TR and RV hypokinesis. ) Cardiac cath: report reviewed (04/2017 showed patent coronaries, EF 10-15%. ) - EKG Sinus rhythms and dysrhythmias: sinus tachycardia
[2019-03-25] MEDS: BROVANA NEBU IH SCH (12:39)
--- NOTE | 2019-03-25 13:04 | Progress Note ---
Assessment and Plan Cultures: 03/21/2019 blood culture: No growth A/P: 63-year-old male with congestive heart failure who presented to the emergency room on 03/29/2019 with complaints of shortness of breath as well as redness involving both his feet. He had recently been discharged from the hospital on 03/04/2019 following a CHF exacerbation. Now with: 1) Bilateral feet erythema and tenderness: does not seem classical cellulitis. He does have a small open wound on his left dorsum of the foot with surrounding redness as well as tenderness. Also reports some cat scratches. DVT scan negative. Arterial duplex also negative for occlusive disease. Also, he has several scabs on bilateral lower and upper extremities but not on his trunk, ?neurotic dermatosis. 2) Acute on chronic systolic CHF: on diuresis. 3) JOHN on CKD: nephrology following. Renally dose abx. 4) Penicillin allergy: likely not true. Tolerating Unasyn without issues. Recs: discontinued Unasyn and Vancomycin. Started PO Keflex 500 mg QID + PO Doxycycline 100 mg BID x 5 days continue wound care Diamond Cohen MD, FACP [facility] C: [phone] O: [phone] F: [phone] Subjective Date of service: 03/25/19 Principal diagnosis: HF; BLE cellulitis Interval history: No fever. Reports pain in his feet is improving, he can now walk. No diarrhea. Tolerating abx well. Objective - Exam Narrative Exam: Physical Exam: Constitutional: Alert, cooperative. No acute distress Head, Ears, Nose: Normocephalic, atraumatic. External ears, nose normal Eyes: Conjunctivae/corneas clear. No icterus. No ptosis. Neck: Supple, no meningeal signs Oral: several missing teeth, no thrush Cardiovascular: S1, S2 normal. Respiratory: Good air entry, clear to auscultation bilaterally GI: Soft, non-tender; bowel sounds normal. No peritoneal signs Musculoskeletal: No pedal edema, no cyanosis. b/l feet distally with improving erythema, minimal warmth, small wound on left dorsum with serous drainage. b/l dystrophic toe nails. Skin: No rash or abscess Hem/Lymphatic: No palpable cervical or supraclavicular nodes. No lymphangitis Psych: Affect flat Neurological: Awake, alert, oriented. No gross abnormality - Constitutional Vitals: Vital Signs Temp Pulse Resp BP Pulse Ox 97.8 F 103 H 24 136/88 95 03/25/19 05:10 03/25/19 05:10 03/25/19 05:10 03/25/19 05:10 03/25/19 05:10 Temperature -Last 24 Hours Temperature 97.8 F Temperature 97.7 F Temperature 97.6 F - Labs CBC & Chem 7: 03/25/19 06:12 03/25/19 06:12 Labs: Abnormal lab results 03/25/19 03/25/19 Range/Units 06:12 06:12 WBC 11.4 H (4.5-11.0) K/mm3 RBC 5.06 H (3.65-5.03) M/mm3 RDW 15.4 H (13.2-15.2) % BUN 35 H (9-20) mg/dL Glucose 118 H (75-100) mg/dL
[2019-03-25] MEDS ORDERED: KEFLEX PO SCH (14:00)
[2019-03-25] MEDS ORDERED: VIBRAMYCIN PO SCH (14:00)
[2019-03-25 14:05] VITALS: BP 144/97
--- NOTE | 2019-03-25 17:16 | Consultation ---
History of Present Illness - Reason for Consult Consult date: 03/25/19 BLE edema - History of Present Illness Patient with a history of CHF and decreased ejection fraction of 10-15%, chronic renal insufficiency and dietary noncompliance who presents with worsening bilateral lower extremity edema. During his auscultation, the patient has been diuresed and is now ambulating without difficulty. He does have +2 pitting edema in bilateral lower extremities. Ultrasound demonstrates no significant arterial disease. No DVTs are demonstrated. Past History Past Medical History: heart failure, hypertension Medications and Allergies Allergies Allergy/AdvReac Type Severity Reaction Status Date / Time venom-honey bee Allergy Hives Verified 02/15/17 14:05 [bee venom (honey bee)] morphine AdvReac Unknown Verified 02/15/17 14:05 Home Medications Medication Instructions Recorded Confirmed Last Taken Type ALBUTEROL Inhaler (OR & NICU) 2 puff IH QID PRN #2 inha 04/12/17 03/21/19 03/02/19 09:00 Rx [ProAir HFA Inhaler] Carvedilol [Coreg] 3.125 mg PO BID #60 tablet 03/04/19 03/21/19 Unknown Rx Aspirin EC [Halfprin EC] 81 mg PO DAILY 03/21/19 03/21/19 Unknown History Budesonide/Formoterol Fumarate 2 puff IH BID 03/21/19 03/21/19 Unknown History [Symbicort 160-4.5 Mcg Inhaler] Furosemide [Lasix TAB] 40 mg PO DAILY@0600 03/21/19 03/21/19 Unknown History Active Meds: Active Medications Acetaminophen (Tylenol) 650 mg PO Q4H PRN PRN Reason: Pain MILD(1-3)/Fever >100.5/RUIZ Albuterol (Proventil) 2.5 mg IH QIDRT PRN PRN Reason: Shortness Of Breath Last Admin: 03/23/19 09:22 Dose: 2.5 mg Documented by: Arformoterol Tartrate (Brovana Nebu) 15 mcg IH Q12HRT [facility] Last Admin: 03/25/19 12:39 Dose: Not Given Documented by: Aspirin (Halfprin Ec) 81 mg PO DAILY [facility] Last Admin: 03/25/19 10:58 Dose: 81 mg Documented by: Budesonide (Pulmicort) 0.5 mg IH Q12HRT [facility] Carvedilol (Coreg) 3.125 mg PO BID [facility] Last Admin: 03/25/19 10:58 Dose: 3.125 mg Documented by: Cephalexin (Keflex) 500 mg PO Q6HR [facility] Stop: 03/30/19 13:59 Doxycycline Hyclate (Vibramycin) 100 mg PO BID [facility] Stop: 03/30/19 13:59 Famotidine (Pepcid) 20 mg PO BID [facility] Last Admin: 03/25/19 10:58 Dose: 20 mg Documented by: Furosemide (Lasix) 40 mg IV 0600,1800 [facility] Last Admin: 03/25/19 06:50 Dose: 40 mg Documented by: Hydromorphone HCl (Dilaudid) 0.5 mg IV Q3H PRN PRN Reason: Pain , Severe (7-10) Last Admin: 03/25/19 11:09 Dose: 0.5 mg Documented by: Ondansetron HCl (Zofran) 4 mg IV Q8H PRN PRN Reason: Nausea And Vomiting Last Admin: 03/25/19 01:33 Dose: 4 mg Documented by: Oxycodone/Acetaminophen (Percocet 5/325) 1 tab PO Q6H PRN PRN Reason: Pain, Moderate (4-6) Last Admin: 03/24/19 18:05 Dose: 1 tab Documented by: Sodium Chloride (Sodium Chloride Flush Syringe 10 Ml) 10 ml IV BID [facility] Last Admin: 03/25/19 10:59 Dose: 10 ml Documented by: Sodium Chloride (Sodium Chloride Flush Syringe 10 Ml) 10 ml IV PRN PRN PRN Reason: LINE FLUSH Spironolactone (Aldactone) 50 mg PO QDAY [facility] Last Admin: 03/25/19 10:58 Dose: 50 mg Documented by: Review of Systems All systems: negative Exam - Constitutional Vitals: Temp Pulse Resp BP Pulse Ox 97.0 F L 100 H 19 144/97 96 03/25/19 11:35 03/25/19 11:35 03/25/19 11:35 03/25/19 11:35 03/25/19 11:35 General appearance: Present: no acute distress - EENT Eyes: Present: EOM intact ENT: hearing intact - Neck Neck: Present: supple, normal ROM - Respiratory Respiratory effort: normal - Extremities Extremities: abnormal Extremity abnormal: edema - Abdominal General gastrointestinal: Present: deferred Male genitourinary: Present: deferred - Rectal Rectal Exam: deferred - Psychiatric Psychiatric: cooperative Results - Labs CBC & Chem 7: 03/25/19 06:12 03/25/19 06:12 Labs: Abnormal lab results 03/25/19 03/25/19 Range/Units 06:12 06:12 WBC 11.4 H (4.5-11.0) K/mm3 RBC 5.06 H (3.65-5.03) M/mm3 RDW 15.4 H (13.2-15.2) % BUN 35 H (9-20) mg/dL Glucose 118 H (75-100) mg/dL - Imaging and Cardiology Venous US: report reviewed Assessment and Plan Patient with bilateral extremity edema improving with diuresis. His inpatient vascular studies are essentially normal. The patient will need a venous ultrasound with reflux evaluation of his lower extremities. This can be done as an outpatient. The patient may follow-up clinic in 2 weeks. Okay to discharge home from a vascular standpoint as the patient is ambulating without difficulty.
--- NOTE | 2019-03-25 17:29 | Discharge Summary ---
Providers - Providers Date of Admission: 03/21/19 17:16 Date of discharge: 03/25/19 Attending physician: REUBEN HARRIS 03/22/19 00:08 Consult to Physician [CONS] Routine Comment: Consulting Provider: MIGUEL ANGEL SANFORD Physician Instructions: Reason For Exam: chf 03/22/19 07:22 Consult to Wound/ET Nurse [CONS] Routine Reason For Exam: wound eval 03/22/19 07:47 Consult to Physician [CONS] Routine Comment: Consulting Provider: MAGGIE FIELD Physician Instructions: Reason For Exam: Acute on chronic kidney disease 03/23/19 12:00 Consult to Physician [CONS] Routine Comment: Consulting Provider: MONTANA MANZANO Physician Instructions: Reason For Exam: skin rash bilat lowere ext,upper ext 03/24/19 10:19 Consult to Mental Health [CONS] Routine Reason For Exam: Possible delusions. Place consult to:: [facility] Notified:: KARY Phone number called:: [phone] Was contact made?: Yes If yes, spoke with:: KARY Time called:: 07:18 03/24/19 10:22 Consult to Physician [CONS] Routine Comment: Consulting Provider: MICKI LEMONS Physician Instructions: Reason For Exam: leg pains Primary care physician: RAMÓN STEINER Hospitalization Condition: Fair Disposition: DC/[place]-06 HOME UNDER HOME [facility] Exam - Constitutional Vitals: Temp Pulse Resp BP Pulse Ox 97.0 F L 100 H 19 144/97 96 03/25/19 11:35 03/25/19 11:35 03/25/19 11:35 03/25/19 11:35 03/25/19 11:35 Plan Activity: advance as tolerated Diet: low fat, low cholesterol, low salt Plan of Treatment: 1,Follow up with PCP or [facility] in 1 week. 2.Follow up with Dr. Jessica, cardiology in 1 week 3.Follow up with Dr. Lemons, [facility] in 1 week 4.Follow up with [facility] in 1 week Follow up with: DAKSHA BLOOD MD [Referring] - 7 Days Prescriptions: Spironolactone [Aldactone] 50 mg PO QDAY #30 tablet Furosemide [Lasix TAB] 40 mg PO DAILY@0600 #30 tablet Famotidine [Pepcid] 20 mg PO BID #30 tablet
--- NOTE | 2019-03-25 17:40 | XRay Report ---
CHEST 1 VIEW INDICATION: CHF. COMPARISON: 03/21/2019. FINDINGS: Support devices: None. Heart: Stable cardiomegaly. Lungs/Pleura: No acute air space or interstitial disease. Additional findings: None. IMPRESSION: No acute abnormality. Signer Name: Marko Christina MD Signed: 03/25/2019 5:36 PM Workstation Name: [id number]
== END 2019-03-25 19:00 | disposition home health service (06) | DRG 602 ==
LOC: ED 14:01 → 3A 17:16
PROVIDERS: ADMIT Internal Medicine; ATTEND Internal Medicine
DX: L03.116 Cellulitis of left lower limb (principal); N17.9 Acute kidney failure, unspecified; I50.43 Acute on chronic combined systolic (congestive) and diastolic (congestive) heart failure; I13.0 Hypertensive heart and chronic kidney disease with heart failure and stage 1 through stage 4 chronic kidney disease, or unspecified chronic kidney disease; L03.115 Cellulitis of right lower limb; J44.9 Chronic obstructive pulmonary disease, unspecified; I42.8 Other cardiomyopathies; I47.2 Ventricular tachycardia; F22 Delusional disorders; N18.9 Chronic kidney disease, unspecified; Z87.442 Personal history of urinary calculi; Z82.49 Family history of ischemic heart disease and other diseases of the circulatory system; Z79.82 Long term (current) use of aspirin; Z79.899 Other long term (current) drug therapy; Z88.0 Allergy status to penicillin; Z88.5 Allergy status to narcotic agent; Z91.030 Bee allergy status; Z79.51 Long term (current) use of inhaled steroids; Z91.11 Patient's noncompliance with dietary regimen
CPT/HCPCS: 36415; 71045; 71046; 80048; 80053; 80061; 80202; 81001; 82570; 83036; 83880; 83930; 84156; 84484; 84550; 85025; 85027; 85610; 85730; 87040; 93005; 93010; 93925; 93970; 94640; 94760; 96365; 96375; G0378; J0295; J1170; J1940; J2405; J3370; J7040

== ENCOUNTER 2019-04-03 08:14 | Inpatient (IN) | payer MEDICAID ==
[2019-04-03] MEDS ORDERED: SODIUM CHLORIDE 0.9% 500 ML 500 ML IV ONE (09:15)
--- NOTE | 2019-04-03 10:08 | XRay Report ---
CHEST 1 VIEW INDICATION: possible Sepsis. COMPARISON: 03/25/2019 FINDINGS: Support devices: None. Heart: Enlargement of the cardiac silhouette is again noted. Lungs/Pleura: There is mild right basilar airspace disease with blunting at the right costophrenic an gle. Left lung is clear. IMPRESSION: 1. Medial right basilar airspace disease is new since the prior. Infiltrate or atelectasis could have this appearance. There is persistent blunting at the right costophrenic angle which could be due to trace right pleural effusion or pleural thickening. Signer Name: Sudheer Lowery MD Signed: 04/03/2019 10:04 AM Workstation Name: [id number]
[2019-04-03 10:14] LABS: Basophils % (Auto) 0.2 % (0.0-1.8); Hematocrit 46.8 % (35.5-45.6); Hemoglobin 14.8 gm/dl (11.8-15.2); Lymphocytes # (Auto) 0.9 K/mm3 (1.2-5.4); Lymphocytes % (Auto) 4.7 % (13.4-35.0); Mean Corpuscular HGB Conc 32 % (32-34); Mean Corpuscular Volume 87 fl (84-94); Monocytes # (Auto) 1.3 K/mm3 (0.0-0.8); Monocytes % (Auto) 6.7 % (0.0-7.3); Platelet Count 209 K/mm3 (140-440); Red Blood Count 5.39 M/mm3 (3.65-5.03); Red Cell Distribution Width 15.8 % (13.2-15.2)
[2019-04-03 10:20] LABS: Bacteria,Urine 1+ /HPF (Negative); Bilirubin,Urine NEG (Negative); Blood,Urine NEG (Negative); Color,Urine Amber (Yellow); Urobilinogen,Urine < 2.0 mg/dL (<2.0)
[2019-04-03 10:22] LABS: INR 1.7 (0.87-1.13)
[2019-04-03 10:23] LABS: Partial Thromboplastin Time 31.5 Sec. (24.2-36.6)
--- NOTE | 2019-04-03 10:27 | Emergency Department Report ---
ED General Adult HPI - General Chief complaint: Extremity Injury, Lower Stated complaint: (R) LEG/PAIN SWELLING Time Seen by Provider: 04/03/19 10:02 Source: patient, EMS (ems notes not available at time of chart dictation), RN notes reviewed, old records reviewed Mode of arrival: Stretcher Limitations: Physical Limitation - History of Present Illness Initial comments: This is a 63-year-old gentleman. This patient is not known to this provider previously. Patient has multiple medical comorbidities, including renal insufficiency, chronic lower extremity wounds, chronic right lower extremity rash, ossicle psychiatric disease, recently admitted to this medical service for congestive heart failure, found to have redness in his bilateral lower extremities. He was seen in conjunction with infectious disease. In their opinion, the patient did not appear to have a classical cellulitis. He was initially started on Unasyn and vancomycin, and then prescriptions for Keflex and doxycycline were recommended. Wound care is also recommended. To me, the patient states he is taking his antibiotics. He presents to the ER today with a primary complaint of lower extremity swelling and pain, right greater than left. He thinks that his right lower extremity is more red than usual, more swollen than usual, more painful than usual. He denies fever. He denies chest pain. He endorses shortness of breath. He denies headache. The patient also endorses syncope, 2- 3 days ago. He has not lost consciousness in the past 24 hours. He denies urinary symptoms. His pain is throbbing, aching and sharp, increases with palpation, decreases with rest. -: Gradual, days(s) Location: right, lower extremity Radiation: extremity Quality: aching Consistency: other Improves with: other Worsens with: other - Related Data Home Medications Medication Instructions Recorded Confirmed Last Taken Aspirin EC [Halfprin EC] 81 mg PO DAILY 03/21/19 03/21/19 Unknown Budesonide/Formoterol Fumarate 2 puff IH BID 03/21/19 03/21/19 Unknown [Symbicort 160-4.5 Mcg Inhaler] Previous Rx's Medication Instructions Recorded Last Taken Type ALBUTEROL Inhaler (OR & NICU) 2 puff IH QID PRN #2 inha 04/12/17 03/02/19 09:00 Rx [ProAir HFA Inhaler] Carvedilol [Coreg] 3.125 mg PO BID #60 tablet 03/04/19 Unknown Rx Doxycycline Hyclate [Doxycycline 100 mg PO Q12HR 5 Days #10 tab 03/25/19 Unknown Rx Hyclate TAB] Famotidine [Pepcid] 20 mg PO BID #30 tablet 03/25/19 Unknown Rx Furosemide [Lasix TAB] 40 mg PO DAILY@0600 #30 tablet 03/25/19 Unknown Rx Spironolactone [Aldactone] 50 mg PO QDAY #30 tablet 03/25/19 Unknown Rx cephALEXin [Keflex] 500 mg PO Q6HR 5 Days #20 capsule 03/25/19 Unknown Rx traMADol [Ultram 50 MG tab] 50 mg PO Q6HR PRN #12 tablet 03/25/19 Unknown Rx Allergies Allergy/AdvReac Type Severity Reaction Status Date / Time Penicillins Allergy Unknown Verified 04/03/19 10:10 venom-honey bee Allergy Hives Verified 04/03/19 10:10 [bee venom (honey bee)] morphine AdvReac Unknown Verified 04/03/19 10:10 ED Review of Systems ROS: Stated complaint: (R) LEG/PAIN SWELLING Other details as noted in HPI Constitutional: malaise, weakness. denies: fever Eyes: denies: eye discharge ENT: congestion Respiratory: denies: wheezing Cardiovascular: edema, syncope Gastrointestinal: denies: nausea, vomiting Genitourinary: denies: dysuria Musculoskeletal: arthralgia, myalgia Skin: rash, lesions Neurological: weakness Psychiatric: anxiety ED Past Medical Hx - Past Medical History Previous Medical History?: Yes Hx Hypertension: Yes Hx Congestive Heart Failure: Yes Hx Diabetes: No Hx Kidney Stones: Yes Hx Asthma: No Hx COPD: No Additional medical history: MITRAL VALVE REGURGITATION - Surgical History Past Surgical History?: Yes Additional Surgical History: for broken bones - Social History Smoking Status: Never Smoker Substance Use Type: None - Medications Home Medications: Home Medications Medication Instructions Recorded Confirmed Last Taken Type ALBUTEROL Inhaler (OR & NICU) 2 puff IH QID PRN #2 inha 04/12/17 03/21/19 03/02/19 09:00 Rx [ProAir HFA Inhaler] Carvedilol [Coreg] 3.125 mg PO BID #60 tablet 03/04/19 03/21/19 Unknown Rx Aspirin EC [Halfprin EC] 81 mg PO DAILY 03/21/19 03/21/19 Unknown History Budesonide/Formoterol Fumarate 2 puff IH BID 03/21/19 03/21/19 Unknown History [Symbicort 160-4.5 Mcg Inhaler] Doxycycline Hyclate [Doxycycline 100 mg PO Q12HR 5 Days #10 tab 03/25/19 Unknown Rx Hyclate TAB] Famotidine [Pepcid] 20 mg PO BID #30 tablet 03/25/19 Unknown Rx Furosemide [Lasix TAB] 40 mg PO DAILY@0600 #30 tablet 03/25/19 Unknown Rx Spironolactone [Aldactone] 50 mg PO QDAY #30 tablet 03/25/19 Unknown Rx cephALEXin [Keflex] 500 mg PO Q6HR 5 Days #20 capsule 03/25/19 Unknown Rx traMADol [Ultram 50 MG tab] 50 mg PO Q6HR PRN #12 tablet 03/25/19 Unknown Rx ED Physical Exam - General Limitations: Physical Limitation General appearance: alert, anxious, in distress - Head Head exam: Present: atraumatic, normocephalic - Eye Eye exam: Present: normal appearance, EOMI. Absent: nystagmus - ENT ENT exam: Present: normal exam, normal orophraynx, mucous membranes moist, normal external ear exam - Neck Neck exam: Present: normal inspection, full ROM. Absent: tenderness, meningism us - Respiratory Respiratory exam: Present: decreased breath sounds. Absent: respiratory distress, rales, rhonchi, stridor - Cardiovascular Cardiovascular Exam: Present: normal rhythm, tachycardia, normal heart sounds. Absent: bradycardia, rubs, gallop - GI/Abdominal GI/Abdominal exam: Present: soft. Absent: distended, tenderness, guarding, rebound, rigid, pulsatile mass - Rectal Rectal exam: Present: deferred - Extremities Exam Extremities exam: Present: tenderness, pedal edema, calf tenderness, other (2+ pulses noted in the bilateral upper, lower extremities. There is no long bony tenderness. The pelvis is stable. There is diffuse swelling and edema noted in the bilateral lower extremities. Diffuse punctate bite lesions noted. There is a chronic appearing erythematous left posterior heel wounds noted. On the right lower extremity, distal to the knee, there is diffuse tender erythema, which does not austyn. There is no crepitus, there is no streaking. The muscular compartments are soft.). Absent: normal inspection - Back Exam Back exam: Present: normal inspection. Absent: tenderness, CVA tenderness (R), CVA tenderness (L), paraspinal tenderness, vertebral tenderness - Neurological Exam Neurological exam: Present: alert, other (Extraocular movements intact. Tongue midline. No facial droop. Facial sensation intact to light touch in the V1, V2, V3 distribution bilaterally. 5 and 5 strength in 4 extremities.. Sensation is intact to light touch in 4 extremities.). Absent: motor sensory deficit - Psychiatric Psychiatric exam: Present: anxious - Skin Skin exam: Present: warm, erythema ED Course Vital Signs 04/03/19 04/03/19 04/03/19 09:01 11:30 13:39 Temperature 98.7 F Pulse Rate 114 H 102 H 100 H Respiratory 16 16 16 Rate Blood Pressure 117/85 Blood Pressure 107/75 109/76 [Right] O2 Sat by Pulse 100 100 100 Oximetry ED Medical Decision Making - Lab Data Result diagrams: 04/03/19 09:46 04/03/19 09:46 Vital Signs 04/03/19 09:01 Temperature 98.7 F Pulse Rate 114 H Respiratory 16 Rate Blood Pressure 117/85 O2 Sat by Pulse 100 Oximetry Lab Results 04/03/19 04/03/19 04/03/19 Range/Units 09:43 09:46 09:46 WBC 19.5 H (4.5-11.0) K/mm3 RBC 5.39 H (3.65-5.03) M/mm3 Hgb 14.8 (11.8-15.2) gm/dl Hct 46.8 H (35.5-45.6) % MCV 87 (84-94) fl MCH 27 L (28-32) pg MCHC 32 (32-34) % RDW 15.8 H (13.2-15.2) % Plt Count 209 (140-440) K/mm3 Lymph % (Auto) 4.7 L (13.4-35.0) % [place] % (Auto) 6.7 (0.0-7.3) % Eos % (Auto) 0.0 (0.0-4.3) % Baso % (Auto) 0.2 (0.0-1.8) % Lymph # 0.9 L (1.2-5.4) K/mm3 [place] # 1.3 H (0.0-0.8) K/mm3 Eos # 0.0 (0.0-0.4) K/mm3 Baso # 0.0 (0.0-0.1) K/mm3 Seg Neutrophils % 88.4 H (40.0-70.0) % Seg Neutrophils # 17.2 H (1.8-7.7) K/mm3 PT 19.6 H (12.2-14.9) Sec. INR 1.70 H (0.87-1.13) APTT 31.5 (24.2-36.6) Sec. VBG pH (7.320-7.420) Urine Bilirubin Neg (Negative) Urine RBC (Auto) 1.0 (0.0-6.0) /HPF 04/03/19 Range/Units 09:46 WBC (4.5-11.0) K/mm3 RBC (3.65-5.03) M/mm3 Hgb (11.8-15.2) gm/dl Hct (35.5-45.6) % MCV (84-94) fl MCH (28-32) pg MCHC (32-34) % RDW (13.2-15.2) % Plt Count (140-440) K/mm3 Lymph % (Auto) (13.4-35.0) % [place] % (Auto) (0.0-7.3) % Eos % (Auto) (0.0-4.3) % Baso % (Auto) (0.0-1.8) % Lymph # (1.2-5.4) K/mm3 [place] # (0.0-0.8) K/mm3 Eos # (0.0-0.4) K/mm3 Baso # (0.0-0.1) K/mm3 Seg Neutrophils % (40.0-70.0) % Seg Neutrophils # (1.8-7.7) K/mm3 PT (12.2-14.9) Sec. INR (0.87-1.13) APTT (24.2-36.6) Sec. VBG pH 7.418 (7.320-7.420) Urine Bilirubin (Negative) Urine RBC (Auto) (0.0-6.0) /HPF - EKG Data -: EKG Interpreted by Ny EKG shows normal: sinus rhythm Rate: tachycardia - EKG Data 04/03/19 14:22 The EKG is limited by motion artifact. This is a sinus tachycardia, 107 bpm, left axis deviation, QTC is prolonged, left anterior fascicular block EKG is not consistent with ST elevation myocardial infarction - Radiology Data Radiology results: report reviewed, image reviewed Print Report Referring Physician: LALO BALDWIN Patient Name: SAMSON GREGORIO Date of : 1955 Sex: Male Report Date: 2019-04-03 Report Status: Finalized Findings [facility] [address] [place] [address] XRay Report Signed Patient: SAMSON GREGORIO MR#: [id number] : [birth year] Acct:[id number] Age/Sex: 63 / M ADM Date: 04/03/19 Loc: ED Attending Dr: Ordering Physician: LALO BALDWIN MD Date of Service: 04/03/19 Procedure(s): XR chest 1V ap Accession Number(s): [id number] cc: LALO BALDWIN MD Fluoro Time In Minutes: CHEST 1 VIEW INDICATION: possible Sepsis. COMPARISON: 03/25/2019 FINDINGS: Support devices: None. Heart: Enlargement of the cardiac silhouette is again noted. Lungs/Pleura: There is mild right basilar airspace disease with blunting at the right costophrenic angle. Left lung is clear. IMPRESSION: 1. Medial right basilar airspace disease is new since the prior. Infiltrate or atelectasis could have this appearance. There is persistent blunting at the right costophrenic angle which could be due to trace right pleural effusion or pleural thickening. Signer Name: Sudheer Lowery MD Signed: 04/03/2019 10:04 AM Workstation Name: [id number] Transcribed By: ANDREA Dictated By: Sudheer Lowery MD Electronically Authenticated By: Sudheer Lowery MD Signed Date/Time: 04/03/19 1004 DD/ 1003 TD/TT: Referring Physician: REUBEN RABAGO Patient Name: SAMSON GREGORIO Date of : 1955 Sex: Male Report Date: 2019-04-03 Report Status: Finalized [facility] [address] [place] [address] Cat Scan Report Signed Patient: SAMSON GREGORIO MR#: [id number] : 1955 Acct:[id number] Age/Sex: 63 / M ADM Date: 04/03/19 Loc: ED Attending Dr: Ordering Physician: REUBEN RABAGO MD Date of Service: 04/03/19 Procedure(s): CT lower extremity RT wo con Accession Number(s): [id number] cc: REUBEN RBAAGO MD CT right lower extremity without contrast INDICATION : rle pain red swollen. TECHNIQUE: Axial imaging performed through the right lower extremity without the use of contrast. All CT scans at this location are performed using CT dose reduction for ALARA by means of automated exposure control. COMPARISON: DVT study from today FINDINGS: Imaging was performed from the level of the knee through the foot. There is no acute osseous abnormality or significant DJD. No malalignment. There is circumferential soft tissue swelling throughout the entire visualized right lower extremity which is severe. No obvious soft tissue wound identified. No evidence of osteomyelitis. Noncontrast examination is quite limited for the evaluation of abscess formation. There is no gross fascial thickening and no subcutaneous air. IMPRESSION: Severe soft tissue swelling circumferentially about the entire visualized right lower extremity with no obvious soft tissue wound or acute osseous abnormality. No intramuscular fascial thickening or soft tissue gas identified. Signer Name: Jagjit Roberts MD Signed: 04/03/2019 1:38 PM Workstation Name: [id number] Transcribed By: JW Dictated By: Jagjit Roberts MD Electronically Authenticated By: Jagjit Roberts MD Signed Date/Time: 04/03/19 1338 DD/ 1335 Print Report Referring Physician: REUBEN RABAGO Patient Name: SAMSON GREGORIO Date of : 1955 Sex: Male Report Date: 2019-04-03 Report Status: Finalized Findings [facility] [address] [place] [address] Vascular Lab Report Signed Patient: SAMSON GREGORIO MR#: [id number] : 1955 Acct:[id number] Age/Sex: 63 / M ADM Date: 04/03/19 Loc: ED Attendi christian Dr: Ordering Physician: REUBEN RABAGO MD Date of Service: 04/03/19 Procedure(s): VL venous duplex LE BILAT Accession Number(s): [id number] cc: REUBEN RABAGO MD DUPLEX DOPPLER LOWER EXTREMITY VEINS, BILATERAL INDICATION: b/ lower ext sdwellign pain. TECHNIQUE: Duplex doppler imaging was performed through the veins of both lower extremities using venous compression and other maneuvers. COMPARISON: 03/23/2019. FINDINGS: Right Common Femoral vein: Negative. Right Superficial Femoral vein: Negative. Right Popliteal vein: Negative. Right Calf veins: Negative. Left Common Femoral vein: Negative. Left Superficial Femoral vein: Negative. Left Popliteal vein: Negative. Left Calf veins: Negative . Additional findings: Bilateral subcutaneous edema is again noted in the calves. IMPRESSION: 1. No sonographic evidence for DVT in either lower extremity. Signer Name: Sudheer Lowery MD Signed: 04/03/2019 11:44 AM Workstation Name: [id number] Transcribed By: Dictated By: Sudheer Lowery MD [facility] Authenticated By: Sudheer Lowery MD Signed Date/Time: 04/03/19 1144 Print Report Referring Physician: REUBEN RABAGO Patient Name: SAMSON GREGORIO Date of : 1955 Sex: Male Report Date: 2019-04-03 Report Status: [place] [address] Cat Scan Report Signed Patient: SAMSON GREGORIO MR#: [id number] : 1955 Acct:[id number] Age/Sex: 63 / M ADM Date: 04/03/19 Loc: ED Attending Dr: Ordering Physician: REUBEN RABAGO MD Date of Service: 04/03/19 Procedure(s): CT head/brain wo con Accession Number(s): [id number] cc: REUBEN RABAGO MD CT BRAIN: 04/03/2019 INDICATION / CLINICAL INFORMATION: weak syncope. COMPARISON: None available. FINDINGS: BRAIN/INTRACRANIAL STRUCTURES: Unenhanced CT images of the brain demonstrate no evidence of acute intracranial abnormality. Ventricles and sulci are normal in size and shape for a patient of this age. There is no evidence of acute ischemic injury, hemorrhage, or mass. Some mild chronic white matter hypoattenuation is present. EXTRACRANIAL STRUCTURES: Unremarkable. IMPRESSION: No acute abnormality. All CT scans at this location are performed using dose reduction to ALARA by means of automated exposure control. Signer Name: Sina King MD Signed: 04/03/2019 1:36 PM Workstation Name: [id number] Transcribed By: AO Dictated By: Sina King MD Electronically Authenticated By: Sina King MD Signed Date/Time: 04/03/19 1336 Print Report Referring Physician: REUBEN RABAGO Patient Name: SAMSON GREGORIO Date of : 1955 Sex: Male Report Date: 2019-04-03 Report Status: Finalized Findings [facility] [address] [place] [address] Cat Scan Report Signed Patient: SAMSON GREGORIO MR#: [id number] : 1955 Acct:[id number] Age/Sex: 63 / M ADM Date: 04/03/19 Loc: ED Attending Dr: Ordering Physician: REUBEN RABAGO MD Date of Service: 04/03/19 Procedure(s): CT chest wo con Accession Number(s): [id number] cc: REUBEN RABAGO MD CT chest without contrast INDICATION : weak syncope pna vs chf. TECHNIQUE: Axial imaging performed through the chest without the use of intravenous contrast. All CT scans at this location are performed using CT dose reduction for ALARA by means of automated exposure control. COMPARISON: Chest x- ray from today FINDINGS: There is a moderately-sized layering effusion on the right, with underlying consolidation. The left lung is clear. There is mild cardiomegaly with calcification along the aortic valve. There are shotty mediastinal lymph nodes which may be reactive. No pathologic adenopathy. Limited imaging of the upper abdomen shows mild bilateral pelvocaliectasis with no stone disease or mass identified on this exam. Otherwise nothing acute. There are degenerative changes throughout the spine with nothing acute. IMPRESSION: 1. Moderately-sized layering effusion on the right with underlying consolidation likely at least in part representing compressive atelectasis. Lungs are otherwise clear. 2. Mild bilateral pelvocaliectasis without a clear etiology visualized on this exam. Signer Name: Jagjit Roberts MD Signed: 04/03/2019 1:28 PM Workstation Name: [id number] Transcribed By: JOSE Dictated By: Jagjit Roberts MD Electronically Authenticated By: Jagjit Roberts MD Signed Date/Time: 04/03/19 7568 - Medical Decision Making Differential diagnosis, including not limited to: Congestive heart failure, fluid overload, stasis dermatitis, or infection Orthostasis, vagal event, structural cardiac disease, intracranial injury Assessment and plan: 63-year-old gentleman with a primary complaint of lower extremity swelling, redness, secondary complaint of malaise, fatigue and syncope. Complaint #1, bilateral lower extremity swelling, right greater than left. Patient has definite right lower extremity redness, however, suspect stasis dermatitis. However he is quite tender, it is warm, and he also has new onset leukocytosis of 19,000. This may be a stress reaction, however, the patient is clearly not reliable to care for himself. he'll be started empirically on clindamycin. He will be given nonsedating nonnarcotic pain medication. He is fluid overloaded, and therefore, we'll withhold fluid bolus. We will also treat empirically for stasis dermatitis, with triamcinolone cream, and famotidine in case there is an allergic component. He is loaded with clindamycin. Bilateral lower extremity DVT study is negative. CT scan of the right lower extremity not consistent with compartment syndrome, necrotizing fasciitis, or deep space infection. As per verbal report from nursing team, patient's apartment was found to have bed bugs, he is given permethrin, and placed on isolation precautions. There may be a component of superinfection secondary to multiple punctate bite wounds in the bilateral lower extremities. X-ray of the chest was ordered, suggest pneumonia versus CHF, CT scan of the chest was ordered, suggests compressive atelectasis, and fluid overload. Do not suspect pneumonia at this time. Complaint #2, question syncope a few days ago. Patient is clinically sober at this time, with a GCS of 15. A noncontrast CT scan of the brain is negative for acute disease. Case is presented to the Hospital physician, Dr. Matilde Simmons, who accepts to his service Critical care attestation.: If time is entered above; I have spent that time in minutes in the direct care of this critically ill patient, excluding procedure time. ED Disposition Clinical Impression: CHF (congestive heart failure), Acute kidney injury, Leg lesion Disposition: OP ADMIT IP TO THIS HOSP Is pt being admited?: Yes Does the pt Need Aspirin: Yes Condition: Fair Referrals: DAKSHA BLOOD MD [Primary Care Provider] - 3-5 Days
[2019-04-03 10:31] LABS: Albumin 2.9 g/dL (3.9-5); Calcium 8.8 mg/dL (8.4-10.2)
[2019-04-03] MEDS ORDERED: FUROSEMIDE 40 MG/4 ML INJ IV ONE (10:45)
[2019-04-03] MEDS ORDERED: ACETAMINOPHEN 325 MG TAB PO ONE (10:45)
[2019-04-03] MEDS ORDERED: PERMETHRIN 5% CREAM 60 GM TP ONE (11:30)
--- NOTE | 2019-04-03 11:49 | Vascular Lab Report ---
DUPLEX DOPPLER LOWER EXTREMITY VEINS, BILATERAL INDICATION: b/ lower ext sdwellign pain. TECHNIQUE: Duplex doppler imaging was performed through the veins of both lower extremities using venous nick dannielle and other maneuvers. COMPARISON: 03/23/2019. FINDINGS: Right Common Femoral vein: Negative. Right Superficial Femoral vein: Negative. Right Popliteal vein: Negative. Right Calf veins: Negative. Left Common Femoral vein: Negative. Left Superficial Femoral vein: Negative. Left Popliteal vein: Negative. Left Calf veins: Negative. Additional findings: Bilateral subcutaneous edema is again noted in the calves. IMPRESSION: 1. No sonographic evidence for DVT in either lower extremity. Signer Name: Sudheer Lowery MD Signed: 04/03/2019 11:44 AM Workstation Name: [id number]
--- NOTE | 2019-04-03 13:32 | Cat Scan Report ---
CT chest without contrast INDICATION : weak syncope pna vs chf. TECHNIQUE: Axial imaging performed through the chest without the use of intravenous contrast. All C T scans at this location are performed using CT dose reduction for ALARA by means of automated exposu re control. COMPARISON: Chest x-ray from today FINDINGS: There is a moderately-sized layering effusion on the right, with underlying consolidation. The left lung is clear. There is mild cardiomegaly with calcification along the aortic valve. There are shotty mediastinal ly mph nodes which may be reactive. No pathologic adenopathy. Limited imaging of the upper abdomen shows mild bilateral pelvocaliectasis with no stone disease or m ass identified on this exam. Otherwise nothing acute. There are degenerative changes throughout the s pine with nothing acute. IMPRESSION: 1. Moderately-sized layering effusion on the right with underlying consolidation likely at least in p art representing compressive atelectasis. Lungs are otherwise clear. 2. Mild bilateral pelvocaliectasis without a clear etiology visualized on this exam. Signer Name: Jagjit Roberts MD Signed: 04/03/2019 1:28 PM Workstation Name: [id number]
--- NOTE | 2019-04-03 13:41 | Cat Scan Report ---
CT BRAIN: 04/03/2019 INDICATION / CLINICAL INFORMATION: weak syncope. COMPARISON: None available. FINDINGS: BRAIN/INTRACRANIAL STRUCTURES: Unenhanced CT images of the brain demonstrate no evidence of acute int racranial abnormality. Ventricles and sulci are normal in size and shape for a patient of this age. There is no evidence of acute ischemic injury, hemorrhage, or mass. Some mild chronic white matter hy poattenuation is present. EXTRACRANIAL STRUCTURES: Unremarkable. IMPRESSION: No acute abnormality. All CT scans at this location are performed using dose reduction to ALARA by means of automated expos ure control. Signer Name: Sina King MD Signed: 04/03/2019 1:36 PM Workstation Name: [id number]
--- NOTE | 2019-04-03 13:42 | Cat Scan Report ---
CT right lower extremity without contrast INDICATION : rle pain red swollen. TECHNIQUE: Axial imaging performed through the right lower extremity without the use of contrast. A ll CT scans at this location are performed using CT dose reduction for ALARA by means of automated ex posure control. COMPARISON: DVT study from today FINDINGS: Imaging was performed from the level of the knee through the foot. There is no acute osseou s abnormality or significant DJD. No malalignment. There is circumferential soft tissue swelling throughout the entire visualized right lower extremity which is severe. No obvious soft tissue wound identified. No evidence of osteomyelitis. Noncontrast e xamination is quite limited for the evaluation of abscess formation. There is no gross fascial thicke jose and no subcutaneous air. IMPRESSION: Severe soft tissue swelling circumferentially about the entire visualized right lower ext remity with no obvious soft tissue wound or acute osseous abnormality. No intramuscular fascial thick ening or soft tissue gas identified. Signer Name: Jagjit Roberts MD Signed: 04/03/2019 1:38 PM Workstation Name: [id number]
[2019-04-03] MEDS ORDERED: CLINDAMYCIN 300 MG/50 mL 300 MG/50 ML BAG IV ONE (14:01)
[2019-04-03] MEDS ORDERED: FAMOTIDINE 20 MG/2 ML INJ IV ONE (14:20)
[2019-04-03] MEDS ORDERED: ASPIRIN 81 MG TAB CHEW PO ONE (14:26)
[2019-04-03] MEDS: TRIAMCINOLONE 0.5% CREAM 15 GM TP SCH (22:17)
[2019-04-04] MEDS: traMADol 50 MG TAB PO PRN ×2 (00:54→13:38)
--- NOTE | 2019-04-04 01:18 | Event Note ---
Date: 04/03/19 See history and physical in reports Bilateral lower extremity cellulitis
[2019-04-04] MEDS ORDERED: ALBUTEROL 8.5 GM INHALATION IH PRN (01:19)
[2019-04-04] MEDS ORDERED: ALBUTEROL 2.5 MG/3 ML NEBU IH PRN (01:27)
[2019-04-04] MEDS: carvediloL 3.125 MG TAB PO SCH ×3 (02:54→23:00)
--- NOTE | 2019-04-04 03:52 | History and Physical Report ---
CHIEF COMPLAINT: Redness of both lower extremities. HISTORY OF PRESENT ILLNESS: A 63-year-old male with multiple medical problems including renal insufficiency, hypertension, GERD and congestive heart failure, comes in for redness of both lower extremities. He was seen in the past in conjunction with Infectious Disease. The patient was treated with Unasyn and vancomycin recently and was discharged on Keflex and doxycycline. Wound care was also recommended. The patient comes because of increasing lower extremity swelling and redness of both lower extremities, especially ____, also low-grade fever, also syncope 2-3 days ago. No urinary symptoms. No shortness of breath. PAST MEDICAL HISTORY: As mentioned, congestive heart failure, CHF, hypertension, GERD and recurrent cellulitis of both lower extremities. PAST SURGICAL HISTORY: Fractures. SOCIAL HISTORY: Does not smoke. FAMILY HISTORY: Hypertension. CURRENT MEDICATIONS: On the chart. REVIEW OF SYSTEMS: Significant for redness of both lower extremities and swelling of both lower extremities. No orthopnea. PHYSICAL EXAMINATION: GENERAL: Elderly male, cooperative during examination. VITAL SIGNS: Temperature 98.6, pulse is 100, respirations are 16, blood pressure 109/76. HEENT: Unremarkable. Pupils equal and reactive. NECK: Supple, no lymphadenopathy, no thyromegaly. LUNGS: Clear to auscultation and percussion. Good air entry. CARDIOVASCULAR: S1, S2 heard. No gallop, no murmur, no rub. Apical impulse in left fifth intercostal space and midclavicular line. ABDOMEN: Soft and benign. No hepatosplenomegaly. No guarding, no rigidity. Hernial orifices are normal. EXTREMITIES: Good pedal pulses. No pedal edema. CENTRAL NERVOUS SYSTEM: Alert and oriented x 4, nonfocal exam. EXTREMITIES: Redness present in both lower extremities, especially ____, including small follicles on the left lower extremity. LABORATORY DATA: Significant for BUN and creatinine of 38 and 1.6. Sodium is 132. Lactic acid is 2.2. White count is 19,500. Urine is negative. Duplex scan was negative. No DVT. Lower extremity CT was done. Severe soft tissue swelling circumferentially around the entire visualized. Right lower extremity with no obvious soft tissue wound or acute osseous abnormality. Chest CT was done, right effusion present; underlying consolidation likely; mild bilateral pelvocaliectasis. ASSESSMENT AND PLAN: 1. Systemic inflammatory response syndrome. The patient has a high white count and lower extremity redness. The patient is started on IV Unasyn and IV vancomycin again. 2. Bilateral lower extremity cellulitis. Unasyn and vancomycin repeated. ID consult requested. 3. Hyponatremia, mild. The patient is already on Lasix, which may be contributing. The patient has congestive heart failure, so no IV fluids were started. 4. Acute kidney injury. Gentle IV hydration at 42 mL per minute. 5. Elevated lactic acid secondary to systemic inflammatory response syndrome. 6. Elevated BNP secondary to congestive heart failure. 7. Hypertension. Continue carvedilol and spironolactone. 8. Gastroesophageal reflux disease. Continue famotidine. 9. Chronic pain. Continue tramadol. 10. Chronic obstructive pulmonary disease. Continue Symbicort. 11. Deep vein thrombosis prophylaxis, heparin 5000 q. 12 hours. JOB# [id number] VSM/NTS
[2019-04-04] MEDS: FUROSEMIDE 40 MG TAB PO SCH (08:22)
[2019-04-04] MEDS ORDERED: VANCOMYCIN PHARMACY TO DOSE IV SCH (09:00)
[2019-04-04] MEDS ORDERED: NON-FORMULARY EACH (Budesonide/Formoterol Fumarate [Symbicort 160-4.5 Mcg Inhaler] 2 PUFF) IH SCH (10:00)
[2019-04-04] MEDS ORDERED: VANCOMYCIN 1,500 MG in SODIUM CHLORIDE 0.9% 500 ML 500 ML IV ONE (10:30)
[2019-04-04] MEDS: ARFORMOTEROL 15 MCG/2 ML NEBU IH SCH ×2 (10:43→21:25)
[2019-04-04] MEDS: BUDESONIDE 0.5 MG/2 ML NEBU IH SCH ×2 (10:43→21:24)
[2019-04-04 10:46] LABS: Calcium 8.1 mg/dL (8.4-10.2)
[2019-04-04] MEDS: ASPIRIN EC 81 MG TAB PO SCH (11:47)
[2019-04-04] MEDS: FAMOTIDINE 20 MG TAB PO SCH (11:48)
[2019-04-04] MEDS: SPIRONOLACTONE 50 MG TAB PO SCH ×2 (11:48→17:41)
[2019-04-04] MEDS: TRIAMCINOLONE 0.5% CREAM 15 GM TP SCH ×4 (11:49→23:00)
[2019-04-04] MEDS ORDERED: POTASSIUM CHLORIDE ER 20 MEQ TAB PO ONE (12:00)
--- NOTE | 2019-04-04 14:54 | Consultation ---
History of Present Illness - Reason for Consult Consult date: 04/04/19 B/L cellulitis, ?RML pneumonia Requesting physician: CARLOS ARIAS - History of Present Illness The patient is a 63-year-old male with congestive heart failure, recently been hospitalized in late February 2019 following a CHF exacerbation. He was recently admitted a few days ago with complaints of shortness of breath as well as redness involving bilateral feet. This did not seem like classical cellulitis, was treated empirically with IV vancomycin and Unasyn and then discharged on oral Keflex plus doxycycline on 03/25/2019. He now returns to the hospital emergency room yesterday with significant swelling and pain of his bilateral lower extremities, right more than left. This is associated with redness and pain. Denies any fever. He does have a cat at home and has previously had cat scratches. Noted to have leukocytosis, restarted on IV Unasyn and vancomycin. Infectious diseases was consulted for antibiotic recommendations. Denies smoking. Review of Systems: General: no fevers,chills or rigors HEENT: no new visual disturbance Respiratory: No cough, sputum, hemoptysis or shortness of breath Cardiovascular: No chest pain, syncope Gastrointestinal: No nausea, vomiting or diarrhea Genitourinary: No dysuria or hematuria Musculoskeletal: No new or worsening neck pain or back pain Neurologic: No headaches, seizures Hematologic: No easy bruising or bleeding Endocrine: No night sweats or acute weight loss Skin: negative for rash, jaundice Psychiatric: No suicidal or homicidal ideation Medications and Allergies Allergies Allergy/AdvReac Type Severity Reaction Status Date / Time Penicillins Allergy Unknown Verified 04/03/19 10:10 venom-honey bee Allergy Hives Verified 04/03/19 10:10 [bee venom (honey bee)] morphine AdvReac Unknown Verified 04/03/19 10:10 Home Medications Medication Instructions Recorded Confirmed Last Taken Type ALBUTEROL Inhaler (OR & NICU) 2 puff IH QID PRN #2 inha 04/12/17 04/03/19 03/30/19 Rx [ProAir HFA Inhaler] Carvedilol [Coreg] 3.125 mg PO BID #60 tablet 03/04/19 04/03/19 03/30/19 Rx Aspirin EC [Halfprin EC] 81 mg PO DAILY 03/21/19 04/03/19 03/30/19 History Budesonide/Formoterol Fumarate 2 puff IH BID 03/21/19 04/03/19 03/30/19 History [Symbicort 160-4.5 Mcg Inhaler] Doxycycline Hyclate [Doxycycline 100 mg PO Q12HR 5 Days #10 tab 03/25/19 04/03/19 03/30/19 Rx Hyclate TAB] Famotidine [Pepcid] 20 mg PO BID #30 tablet 03/25/19 04/03/19 03/30/19 Rx Furosemide [Lasix TAB] 40 mg PO DAILY@0600 #30 tablet 03/25/19 04/03/19 03/30/19 Rx Spironolactone [Aldactone] 50 mg PO QDAY #30 tablet 03/25/19 04/03/19 03/30/19 Rx cephALEXin [Keflex] 500 mg PO Q6HR 5 Days #20 capsule 03/25/19 04/03/19 03/30/19 Rx traMADol [Ultram 50 MG tab] 50 mg PO Q6HR PRN #12 tablet 03/25/19 04/03/19 Rx Active Meds: Active Medications Albuterol (Proventil) 2.5 mg IH QIDRT PRN PRN Reason: Shortness Of Breath Arformoterol Tartrate (Brovana Nebu) 15 mcg IH Q12HRT [facility] Last Admin: 04/04/19 10:43 Dose: 15 mcg Documented by: Aspirin (Halfprin Ec) 81 mg PO DAILY [facility] Last Admin: 04/04/19 11:47 Dose: 81 mg Documented by: Budesonide (Pulmicort) 1 mg IH Q12HRT [facility] Last Admin: 04/04/19 10:43 Dose: 1 mg Documented by: Carvedilol (Coreg) 3.125 mg PO BID [facility] Last Admin: 04/04/19 12:24 Dose: 3.125 mg Documented by: Famotidine (Pepcid) 20 mg PO QAM [facility] Last Admin: 04/04/19 11:48 Dose: 20 mg Documented by: Furosemide (Lasix) 40 mg PO DAILY@0600 [facility] Last Admin: 04/04/19 08:22 Dose: Not Given Documented by: Azithromycin 500 mg/ Sodium (Chloride) 250 mls @ 250 mls/hr IV Q24HR [facility]; Protocol Stop: 04/09/19 14:59 Cefepime HCl (Maxipime/Ns 1 Gm/100 Ml) 1 gm in 100 mls @ 200 mls/hr IV Q8HR [facility]; Protocol Spironolactone (Aldactone) 50 mg PO QDAY [facility] Tramadol HCl (Ultram) 50 mg PO Q6H PRN PRN Reason: Pain Last Admin: 04/04/19 13:38 Dose: 50 mg Documented by: Triamcinolone Acetonide (Kenalog) 1 applic TP BID [facility] Last Admin: 04/04/19 12:26 Dose: 1 applic Documented by: Physical Examination - Physical Exam Narrative exam: Physical Exam: Constitutional: Alert, cooperative. No acute distress Head, Ears, Nose: Normocephalic, atraumatic. External ears, nose normal Eyes: Conjunctivae/corneas clear. No icterus. No ptosis. Neck: Supple, no meningeal signs Oral: several missing teeth, no thrush Cardiovascular: S1, S2 normal. Respiratory: Good air entry, clear to auscultation bilaterally GI: Soft, non-tender; bowel sounds normal. No peritoneal signs Musculoskeletal: b/l pedal edema, tenderness, R>L. Also has a livedo reticularis type rash along with several purpurae on b/l LE, UE and few on the abdomen. several scabs + Skin: rash as above. No abscess. Hem/Lymphatic: No palpable cervical or supraclavicular nodes. No lymphangitis Psych: Mood ok. Affect flat Neurological: Awake, alert, oriented. No gross abnormality - Constitutional Vitals: Vital Signs Temp Pulse Resp BP Pulse Ox 97.6 F 104 H 18 109/83 96 04/04/19 11:40 04/04/19 12:24 04/04/19 11:40 04/04/19 12:24 04/04/19 11:40 Temperature -Last 24 Hours Temperature 97.6 F Temperature 98.1 F Temperature 98.5 F Temperature 98.1 F Temperature 98.6 F Results - Labs CBC & Chem 7: 04/03/19 09:46 04/04/19 09:15 Labs: Abnormal lab results 04/04/19 Range/Units 09:15 Potassium 3.5 L (3.6-5.0) mmol/L BUN 33 H (9-20) mg/dL Glucose 126 H (75-100) mg/dL Calcium 8.1 L (8.4-10.2) mg/dL - Imaging and Cardiology CT scan - chest: report reviewed, image reviewed (right sided atelectasis and pleural effusion, I don't see a pneumonia) Assessment and Plan Cultures: 03/21/2019 blood culture: No growth 04/03/2019 urine culture: No significant growth 04/03/2019 blood culture: No growth A/P: 63-year-old male with congestive heart failure with 2 recent admissions for CHF and then possible cellulitis. Now with: 1) Leucocytosis, ?bilateral cellulitis R>L, pedal edema with b/l LE livedo reticularis and purpuric rash: ?acute bacterial cellulitis v/s vasculitic rash. Failed recent abx. DVT scan negative. Arterial doppler 03/23/2019 also did not reveal any significant arterial insufficiency. 2) ?RML pneumonia: no respiratory symptoms as such, CT images not consistent with pneumonia, more in favor of atelectasis and pleural effusion. 3) JOHN on CKD: Improving. Renally dose abx. 4) CHF 5) Penicillin allergy: not true. Patient tolerated Unasyn and Keflex last admi ssion. Recs: ordered HIV (verbal consent obtained), cat scratch serology, CALI, vasculitis panel, ESR, CRP, C3, C4 treat empirically for now with Cefepime, Vancomycin and Azithromycin if no response to abx, may need skin biopsy Diamond Cohen MD, FACP [facility] ([facility] C: [phone] O: [phone] F: [phone]
--- NOTE | 2019-04-04 15:32 | Progress Note ---
Assessment and Plan Assessment and plan: Patient is a 63 yo man with a history of NICMP, chronic HFrEF, NSVT declines LifeVest/AICD, CKD 3, HTN and mod to severe TR who presents to [facility] ED with fever, chills, ble leg swelling with redness and SOB. Pt was discharged from [facility] on 03/04/19 following treatment for A/CHFrEF. He returned on 03/21/19 with same BLE cellulitis and another CHF exacerbation. He was discharge again on 03/25/19 but returns again on 04/03/19 with same CHF ex/ble cellulitis. * LHC done 04/2017 showed patent coronaries, EF 10-15%. -Sepsis BLE cellulitis, but atypical bilateral cellulitis R>L, pedal edema with b/l LE livedo reticularis and purpuric rash: ?acute bacterial cellulitis v/s vasculitic rash. Failed recent abx. DVT scan negative. Arterial doppler 03/23/2019 also did not reveal any significant arterial insufficiency. ordered HIV (verbal consent obtained), cat scratch serology, CALI, vasculitis panel, ESR, CRP, C3, C4, treat empirically for now with Cefepime, Vancomycin and Azithrom ycin, if no response to abx, may need skin biopsy -?RML pneumonia: no respiratory symptoms as such, CT images not consistent with pneumonia, more in favor of atelectasis and pleural effusion. -JOHN on CKD 3, vasomotor nephropathy: Improving. Renally dose abx. -Acute on chronic systolic heart failure: Diuresis, Cardiology consulted, input noted -Painless jaundice and elevated transamines: consult GI, -Penicillin allergy: not true. Patient tolerated Unasyn and Keflex last admission. -Moderate malnutrition: consult [employer] U/S History Interval history: Patient was seen and examined. Follow-up on current diagnosis of BLE cellulitis. No overnight events reported to me. Patient denies any chest pain, shortness breath, nausea/vomiting or severe headaches. Imaging, nursing note, chart, labs and old chart reviewed. Discussed with patient. Hospitalist Physical - Physical exam Narrative exam: Gen: WDWN, NAD, Awake, Alert, Orientated HEENT: NCAT, EOMI, PERRL, OP Clear Neck: supple, no adenopathy, no thyromegaly, no JVD CVS/Heart: RRR, normal S1S2, pulses present bilaterally Chest/Lungs: CTA B, Symmetrical chest expansion, good air entry bilaterally GI/Abdomen: soft, NTND, good bowel sounds, no guarding or rebound /Bladder: no suprapubic tenderness, no CVA or paraspinal tenderness Extermity/Skin: bilateral leg redness for toes to mid thighs MSK: FROM x 4 Neuro: CN 2-12 grossly intact, no new focal deficits Psych: calm - Constitutional Vitals: Temp Pulse Resp BP Pulse Ox 97.6 F 104 H 18 109/83 96 04/04/19 11:40 04/04/19 12:24 04/04/19 11:40 04/04/19 12:24 04/04/19 11:40 Results - Labs CBC & Chem 7: 04/03/19 09:46 04/04/19 09:15 Labs: Laboratory Last Values WBC 19.5 K/mm3 (4.5-11.0) H 04/03/19 09:46 RBC 5.39 M/mm3 (3.65-5.03) H 04/03/19 09:46 Hgb 14.8 gm/dl (11.8-15.2) 04/03/19 09:46 Hct 46.8 % (35.5-45.6) H 04/03/19 09:46 MCV 87 fl (84-94) 04/03/19 09:46 MCH 27 pg (28-32) L 04/03/19 09:46 MCHC 32 % (32-34) 04/03/19 09:46 RDW 15.8 % (13.2-15.2) H 04/03/19 09:46 Plt Count 209 K/mm3 (140-440) 04/03/19 09:46 Lymph % (Auto) 4.7 % (13.4-35.0) L 04/03/19 09:46 [place] % (Auto) 6.7 % (0.0-7.3) 04/03/19 09:46 Eos % (Auto) 0.0 % (0.0-4.3) 04/03/19 09:46 Baso % (Auto) 0.2 % (0.0-1.8) 04/03/19 09:46 Lymph # 0.9 K/mm3 (1.2-5.4) L 04/03/19 09:46 [place] # 1.3 K/mm3 (0.0-0.8) H 04/03/19 09:46 Eos # 0.0 K/mm3 (0.0-0.4) 04/03/19 09:46 Baso # 0.0 K/mm3 (0.0-0.1) 04/03/19 09:46 Seg Neutrophils % 88.4 % (40.0-70.0) H 04/03/19 09:46 Seg Neutrophils # 17.2 K/mm3 (1.8-7.7) H 04/03/19 09:46 PT 19.6 Sec. (12.2-14.9) H 04/03/19 09:46 INR 1.70 (0.87-1.13) H 04/03/19 09:46 APTT 31.5 Sec. (24.2-36.6) 04/03/19 09:46 VBG pH 7.418 (7.320-7.420) 04/03/19 09:46 Sodium 138 mmol/L (137-145) 04/04/19 09:15 Potassium 3.5 mmol/L (3.6-5.0) L 04/04/19 09:15 Chloride 98.7 mmol/L (98-107) 04/04/19 09:15 Carbon Dioxide 22 mmol/L (22-30) 04/04/19 09:15 21 mmol/L 04/04/19 09:15 BUN 33 mg/dL (9-20) H 04/04/19 09:15 1.3 mg/dL (0.8-1.5) 04/04/19 09:15 Estimated GFR 56 ml/min 04/04/19 09:15 25 % 04/04/19 09:15 Glucose 126 mg/dL (75-100) H 04/04/19 09:15 Lactic Acid 2.20 mmol/L (0.7-2.0) H* 04/03/19 13:43 Calcium 8.1 mg/dL (8.4-10.2) L 04/04/19 09:15 Magnesium 2.10 mg/dL (1.7-2.3) 04/03/19 11:15 3.30 mg/dL (0.1-1.2) H 04/03/19 09:46 AST 42 units/L (5-40) H 04/03/19 09:46 ALT 69 units/L (7-56) H 04/03/19 09:46 78 units/L (35-129) 04/03/19 09:46 59 units/L (55-170) 04/03/19 11:15 < 0.010 ng/mL (0.00-0.029) 04/03/19 11:15 NT-Pro-B Natriuret Pep 9406 pg/mL (0-900) H 04/03/19 09:46 6.5 g/dL (6.3-8.2) 04/03/19 09:46 2.9 g/dL (3.9-5) L 04/03/19 09:46 0.8 % 04/03/19 09:46 Clarita (Yellow) 04/03/19 09:43 Clear (Clear) 04/03/19 09:43 5.0 (5.0-7.0) 04/03/19 09:43 Ur Specific Elizabeth 1.017 (1.003-1.030) 04/03/19 09:43 100 mg/dl mg/dL (Negative) 04/03/19 09:43 Neg mg/dL (Negative) 04/03/19 09:43 Neg mg/dL (Negative) 04/03/19 09:43 Neg (Negative) 04/03/19 09:43 Neg (Negative) 04/03/19 09:43 Neg (Negative) 04/03/19 09:43 < 2.0 mg/dL (<2.0) 04/03/19 09:43 Ur Leukocyte Esterase Neg (Negative) 04/03/19 09:43 1.0 /HPF (0.0-6.0) 04/03/19 09:43 1.0 /HPF (0.0-6.0) 04/03/19 09:43 1+ /HPF (Negative) 04/03/19 09:43 Active Medications - Current Medications Current Medications: Generic Name Dose Route Start Last Admin Trade Name Freq PRN Reason Stop Dose Admin Albuterol 2.5 mg 04/04/19 01:27 Proventil IH QIDRT PRN Shortness Of Breath Arformoterol Tartrate 15 mcg 04/04/19 08:00 04/04/19 10:43 Brovana Nebu IH 15 mcg Q12HRT [facility] Administration Aspirin 81 mg 04/04/19 10:00 04/04/19 11:47 Halfprin Ec PO 81 mg DAILY [facility] Administration Budesonide 1 mg 04/04/19 08:00 04/04/19 10:43 Pulmicort IH 1 mg Q12HRT [facility] Administration Carvedilol 3.125 mg 04/04/19 02:00 04/04/19 12:24 Coreg PO 3.125 mg BID [facility] Administration Famotidine 20 mg 04/04/19 10:00 04/04/19 11:48 Pepcid PO 20 mg QAM [facility] Administration Furosemide 40 mg 04/04/19 06:00 04/04/19 08:22 Lasix PO Not Given DAILY@0600 [facility] Azithromycin 500 mg/ Sodium 250 mls @ 250 mls/hr 04/04/19 16:00 Chloride IV 04/09/19 15:59 Q24HR [facility] Protocol Cefepime HCl 1 gm in 100 mls @ 200 mls/hr 04/04/19 15:30 Maxipime/Ns 1 Gm/100 Ml IV Q8HR [facility] Protocol Vancomycin HCl 1,250 mg/ 275 mls @ 166.667 mls/hr 04/05/19 00:00 Sodium Chloride IV Q18H [facility] Spironolactone 50 mg 04/04/19 10:00 Aldactone PO QDAY [facility] Tramadol HCl 50 mg 04/03/19 23:05 04/04/19 13:38 Ultram PO 50 mg Q6H PRN Administration Pain Triamcinolone Acetonide 1 applic 04/03/19 15:00 04/04/19 12:26 Kenalog TP 1 applic BID [facility] Administration
[2019-04-04] MEDS: CEFEPIME/NS 1 GM/100 ML 1 GM/100 ML BAG IV SCH ×2 (17:22→23:00)
[2019-04-04] MEDS: AZITHROMYCIN 500 MG in SODIUM CHLORIDE 0.9% 250ML 250 ML IV SCH (18:17)
[2019-04-04] MEDS: VANCOMYCIN 1,250 MG in SODIUM CHLORIDE 0.9% 250ML 250 ML IV SCH (23:34)
[2019-04-05] MEDS: FUROSEMIDE 40 MG TAB PO SCH (06:52)
[2019-04-05] MEDS: CEFEPIME/NS 1 GM/100 ML 1 GM/100 ML BAG IV SCH (06:52)
[2019-04-05] MEDS: BUDESONIDE 0.5 MG/2 ML NEBU IH SCH ×2 (07:45→20:22)
[2019-04-05] MEDS: ARFORMOTEROL 15 MCG/2 ML NEBU IH SCH ×2 (07:45→20:22)
[2019-04-05] MEDS: carvediloL 3.125 MG TAB PO SCH ×2 (10:00→22:50)
--- NOTE | 2019-04-05 10:37 | Gastroenterology Consultation ---
<GALA HICKS - Last Filed: 04/05/19 10:56> History of Present Illness - Reason for Consult Consult date: 04/05/19 painless jaundice; elevated LFTs Requesting physician: CARLOS ARIAS - History of Present Illness Patient is a 63 y/o male with PMH of NICMP, chronic HFrEF, NSVT declines LifeVest/AICD, CKD 3, HTN and mod to severe TR who presents to [facility] with fever, chills, ble leg swelling with redness and SOB and admitted with recurrent CHF exacerbation/BLE cellulitis (multiple recent admissions for similar symptoms). Upon admission, patient was found to be jaundice with with elevated LFTs to which GI has been consulted. This morning patient was resting in bed w/o acute distress. Currently w/o GI complaints such as wt loss, abd pain, N/V, or signs of bleeding. Requesting to eat. Denies a hx or Fhx of liver disease. No ETOH abuse, IV drug use, or use of herbal supplements. States he was sent home upon last discharge with 5 new medications but did not continue taking them at home. Past History Past Medical History: other (as per HPI) Past Surgical History: Other (ortho surgery) Social history: lives with family. denies: smoking, alcohol abuse Medications and Allergies Allergies Allergy/AdvReac Type Severity Reaction Status Date / Time Penicillins Allergy Unknown Verified 04/03/19 10:10 venom-honey bee Allergy Hives Verified 04/03/19 10:10 [bee venom (honey bee)] morphine AdvReac Unknown Verified 04/03/19 10:10 Home Medications Medication Instructions Recorded Confirmed Last Taken Type ALBUTEROL Inhaler (OR & NICU) 2 puff IH QID PRN #2 inha 04/12/17 04/03/19 03/30/19 Rx [ProAir HFA Inhaler] Carvedilol [Coreg] 3.125 mg PO BID #60 tablet 03/04/19 04/03/19 03/30/19 Rx Aspirin EC [Halfprin EC] 81 mg PO DAILY 03/21/19 04/03/19 03/30/19 History Budesonide/Formoterol Fumarate 2 puff IH BID 03/21/19 04/03/19 03/30/19 History [Symbicort 160-4.5 Mcg Inhaler] Doxycycline Hyclate [Doxycycline 100 mg PO Q12HR 5 Days #10 tab 03/25/19 04/03/19 03/30/19 Rx Hyclate TAB] Famotidine [Pepcid] 20 mg PO BID #30 tablet 03/25/19 04/03/19 03/30/19 Rx Furosemide [Lasix TAB] 40 mg PO DAILY@0600 #30 tablet 03/25/19 04/03/19 03/30/19 Rx Spironolactone [Aldactone] 50 mg PO QDAY #30 tablet 03/25/19 04/03/19 03/30/19 Rx cephALEXin [Keflex] 500 mg PO Q6HR 5 Days #20 capsule 03/25/19 04/03/19 03/30/19 Rx traMADol [Ultram 50 MG tab] 50 mg PO Q6HR PRN #12 tablet 03/25/19 04/03/19 03/30/19 Rx Active Meds: Active Medications Albuterol (Proventil) 2.5 mg IH QIDRT PRN PRN Reason: Shortness Of Breath Arformoterol Tartrate (Brovana Nebu) 15 mcg IH Q12HRT [facility] Last Admin: 04/05/19 07:45 Dose: 15 mcg Documented by: Aspirin (Halfprin Ec) 81 mg PO DAILY [facility] Last Admin: 04/04/19 11:47 Dose: 81 mg Documented by: Budesonide (Pulmicort) 1 mg IH Q12HRT [facility] Last Admin: 04/05/19 07:45 Dose: 1 mg Documented by: Carvedilol (Coreg) 3.125 mg PO BID [facility] Last Admin: 04/04/19 23:00 Dose: 3.125 mg Documented by: Famotidine (Pepcid) 20 mg PO QAM [facility] Last Admin: 04/04/19 11:48 Dose: 20 mg Documented by: Furosemide (Lasix) 40 mg PO DAILY@0600 [facility] Last Admin: 04/05/19 06:52 Dose: 40 mg Documented by: Azithromycin 500 mg/ Sodium (Chloride) 250 mls @ 250 mls/hr IV Q24HR [facility]; Protocol Stop: 04/09/19 15:59 Last Admin: 04/04/19 18:17 Dose: 250 mls/hr Documented by: Cefepime HCl (Maxipime/Ns 1 Gm/100 Ml) 1 gm in 100 mls @ 200 mls/hr IV Q8HR [facility]; Protocol Last Admin: 04/05/19 06:52 Dose: 200 mls/hr Documented by: Vancomycin HCl 1,250 mg/ (Sodium Chloride) 275 mls @ 166.667 mls/hr IV Q18H [facility] Last Admin: 04/04/19 23:34 Dose: 166.667 mls/hr Documented by: Spironolactone (Aldactone) 50 mg PO QDAY [facility] Last Admin: 04/04/19 17:41 Dose: 50 mg Documented by: Tramadol HCl (Ultram) 50 mg PO Q6H PRN PRN Reason: Pain Last Admin: 04/04/19 13:38 Dose: 50 mg Documented by: Triamcinolone Acetonide (Kenalog) 1 applic TP BID [facility] Last Admin: 04/04/19 23:00 Dose: 1 applic Documented by: medications reviewed/updated as required Review of Systems - Review of Systems All systems: negative Gastrointestinal: jaundice, no abdominal pain, no nausea, no vomiting Exam - Constitutional Vital Signs: Temp Pulse Resp BP Pulse Ox 97.7 F 104 H 16 119/79 97 04/05/19 05:51 04/04/19 23:13 04/05/19 05:51 04/05/19 05:51 04/04/19 23:13 General appearance: no acute distress - EENT Eyes: PERRL, EOM intact ENT: hearing intact - Respiratory Respiratory effort: normal Respiratory: bilateral: diminished - Cardiovascular Rhythm: other (tachycardia) - Gastrointestinal General gastrointestinal: Present: soft, non-tender, non-distended, normal bowel sounds - Musculoskeletal Musculoskeletal: other (BLE edema, +scabs) - Neurologic Neurological: alert and oriented x3 - Labs CBC & Chem 7: 04/03/19 09:46 04/04/19 09:15 Lab Results: Laboratory Results - last 24 hr 04/04/19 04/04/19 04/04/19 09:15 15:46 15:46 ESR 17 Sodium 138 Potassium 3.5 L Chloride 98.7 Carbon Dioxide 22 Anion Gap 21 BUN 33 H Creatinine 1.3 Estimated GFR 56 BUN/Creatinine Ratio 25 Glucose 126 H Calcium 8.1 L C-Reactive Protein 25.70 H Assessment and Plan 1.elevated LFTs 2.jaundice -plt WNL -INR 1.70 -LFTs-T.oj 3.30, AST 42, ALT 69, alk phos 78 (on note LFTs WNL recently on 03/23/19) -clinically, patient w/o GI complaints such as abd pain, N/v, or signs of bleeding. -etiology unclear- possibly 2/2 sepsis vs medication induced vs congestive vs other -CALI pending -will order acute hepatitis panel, acetaminophen level, and abd U/S for further evaluation of liver -avoid hepatotoxic agents -continue to trend labs (CMP/INR in am) and supportive care -will follow 3.sepsis/BLE cellulitis 4.?RML pneumonia 5.JOHN on CKD 6.acute on chronic systolic heart failure <MICKI HEARD - Last Filed: 04/05/19 14:07> Medications and Allergies Active Meds: Active Medications Albuterol (Proventil) 2.5 mg IH QIDRT PRN PRN Reason: Shortness Of Breath Arformoterol Tartrate (Brovana Nebu) 15 mcg IH Q12HRT [facility] Last Admin: 04/05/19 07:45 Dose: 15 mcg Documented by: Aspirin (Halfprin Ec) 81 mg PO DAILY [facility] Last Admin: 04/05/19 13:21 Dose: 81 mg Documented by: Budesonide (Pulmicort) 1 mg IH Q12HRT [facility] Last Admin: 04/05/19 07:45 Dose: 1 mg Documented by: Carvedilol (Coreg) 3.125 mg PO BID [facility] Last Admin: 04/05/19 10:00 Dose: Not Given Documented by: Famotidine (Pepcid) 20 mg PO QAM [facility] Last Admin: 04/05/19 13:37 Dose: 20 mg Documented by: Furosemide (Lasix) 40 mg PO DAILY@0600 [facility] Last Admin: 04/05/19 06:52 Dose: 40 mg Documented by: Azithromycin 500 mg/ Sodium (Chloride) 250 mls @ 250 mls/hr IV Q24HR [facility]; Protocol Stop: 04/09/19 15:59 Last Admin: 04/05/19 13:33 Dose: 250 mls/hr Documented by: Vancomycin HCl 1,250 mg/ (Sodium Chloride) 275 mls @ 166.667 mls/hr IV Q18H [facility] Last Admin: 04/04/19 23:34 Dose: 166.667 mls/hr Documented by: Ampicillin Sodium/Sulbactam Sodium (Unasyn/Ns 3 Gm/100 Ml) 3 gm in 100 mls @ 200 mls/hr IV Q6HR [facility]; Protocol Spironolactone (Aldactone) 50 mg PO QDAY [facility] Last Admin: 04/05/19 13:38 Dose: 50 mg Documented by: Tramadol HCl (Ultram) 50 mg PO Q6H PRN PRN Reason: Pain Last Admin: 04/04/19 13:38 Dose: 50 mg Documented by: Triamcinolone Acetonide (Kenalog) 1 applic TP BID [facility] Last Admin: 04/05/19 13:32 Dose: 1 applic Documented by: Exam - Constitutional Vital Signs: Temp Pulse Resp BP Pulse Ox 97.7 F 101 H 20 119/79 97 04/05/19 05:51 04/05/19 13:38 04/05/19 07:45 04/05/19 05:51 04/05/19 07:45 - Labs CBC & Chem 7: 04/03/19 09:46 04/04/19 09:15 Lab Results: Laboratory Results - last 24 hr 04/04/19 04/04/19 15:46 15:46 ESR 17 C-Reactive Protein 25.70 H Assessment and Plan Patient seen and examined. I have reviewed the advanced practitioner's evaluation, assessment, and plan, and agree with them. I note the following additions: no clear etiology as of yet, eval initiated, trend LFTs and we will continue to follow with you - Patient Problems (1) Abnormal liver enzymes Current Visit: Yes Status: Acute
--- NOTE | 2019-04-05 10:45 | Ultrasound Report ---
ULTRASOUND ABDOMEN, LIMITED (RIGHT UPPER QUADRANT) INDICATION: jaundice, abn LFT. COMPARISON: None available. FINDINGS: Pancreas: Not well seen due to overlying bowel gas Liver: Normal. Gallbladder: Gallbladder appears contracted. The wall measures 8 mm. No gallstones are seen. Bile ducts: Normal. Common Bile Duct measures 6 $20 mm. Free fluid: None. Additional Findings: None. IMPRESSION: 1. No focal hepatic lesions are seen. The liver is normal in size. The gallbladder is contracted. No gallstones are seen. There is no biliary dilatation. Signer Name: Sami Salas MD Signed: 04/05/2019 10:41 AM Workstation Name: [id number]
[2019-04-05] MEDS: ASPIRIN EC 81 MG TAB PO SCH (13:21)
--- NOTE | 2019-04-05 13:25 | Progress Note ---
Assessment and Plan Cultures: 03/21/2019 blood culture: No growth 04/03/2019 urine culture: No significant growth 04/03/2019 blood culture: No growth A/P: 63-year-old male with congestive heart failure with 2 recent admissions for CHF and then possible cellulitis. Now with: 1) Leucocytosis, ?bilateral cellulitis R>L, pedal edema with b/l LE livedo reticularis and purpuric rash: ?acute bacterial cellulitis v/s vasculitic rash. Failed recent abx. DVT scan negative. Arterial doppler 03/23/2019 also did not reveal any significant arterial insufficiency. ESR is low at 17, CRP is high 25. Has a cat at home and reports multiple scratches. 2) ?RML pneumonia: no respiratory symptoms as such, CT images not consistent wit h pneumonia, more in favor of atelectasis and pleural effusion. 3) JOHN on CKD: Improving. Renally dose abx. 4) CHF 5) Penicillin allergy: not true. Patient tolerated Unasyn and Keflex last admission. 6) Elevated LFTs and bilirubin: GI following. Recs: f/u HIV, cat scratch serology, CALI, vasculitis panel, C3, C4 Empiric IV Unasyn + Vancomycin Day 2 Complete 5 days of Azithromycin, D2 today (empiric coverage of cat scratch disease) if no response to abx, may need skin biopsy Diamond Cohen MD, FACP [facility] ([facility] C: [phone] O: [phone] F: [phone] Subjective Date of service: 04/05/19 Interval history: No fever. Feels pain in bilateral feet is slightly better. Tolerating antimic robials. No diarrhea. Objective - Exam Narrative Exam: Physical Exam: Constitutional: Alert, cooperative. No acute distress Head, Ears, Nose: Normocephalic, atraumatic. External ears, nose normal Eyes: Conjunctivae/corneas clear. No icterus. No ptosis. Neck: Supple, no meningeal signs Oral: several missing teeth, no thrush Cardiovascular: S1, S2 normal. Respiratory: Good air entry, clear to auscultation bilaterally GI: Soft, non-tender; bowel sounds normal. No peritoneal signs Musculoskeletal: b/l pedal edema, tenderness, R>L. Also has a livedo reticularis type rash along with several purpurae on b/l LE, UE and few on the abdomen. several scabs + Skin: rash as above. No abscess. Hem/Lymphatic: No palpable cervical or supraclavicular nodes. No lymphangitis Psych: Mood ok. Affect flat Neurological: Awake, alert, oriented. No gross abnormality - Constitutional Vitals: Vital Signs Temp Pulse Resp BP Pulse Ox 97.7 F 106 H 20 119/79 97 04/05/19 05:51 04/05/19 07:45 04/05/19 07:45 04/05/19 05:51 04/05/19 07:45 Temperature -Last 24 Hours Temperature 97.7 F Temperature 98.6 F - Labs CBC & Chem 7: 04/03/19 09:46 04/04/19 09:15 Labs: Abnormal lab results 04/04/19 Range/Units 15:46 C-Reactive Protein 25.70 H (0.00-1.30) mg/dL
[2019-04-05] MEDS: TRIAMCINOLONE 0.5% CREAM 15 GM TP SCH ×2 (13:32→23:57)
[2019-04-05] MEDS: AZITHROMYCIN 500 MG in SODIUM CHLORIDE 0.9% 250ML 250 ML IV SCH (13:33)
[2019-04-05] MEDS: FAMOTIDINE 20 MG TAB PO SCH (13:37)
[2019-04-05] MEDS: SPIRONOLACTONE 50 MG TAB PO SCH (13:38)
--- NOTE | 2019-04-05 14:34 | Progress Note ---
Assessment and Plan Assessment and plan: Patient is a 63 yo man with a history of NICMP, chronic HFrEF, NSVT declines LifeVest/AICD, CKD 3, HTN and mod to severe TR who presents to [facility] ED with fever, chills, ble leg swelling with redness and SOB. Pt was discharged from [facility] on 03/04/19 following treatment for A/CHFrEF. He returned on 03/21/19 with same BLE cellulitis and another CHF exacerbation. He was discharge again on 03/25/19 but returns again on 04/03/19 with same CHF ex/ble cellulitis. * LHC done 04/2017 showed patent coronaries, EF 10-15%. -Sepsis BLE cellulitis, but atypical bilateral cellulitis R>L, pedal edema with b/l LE livedo reticularis and purpuric rash: ?acute bacterial cellulitis v/s vasculitic rash. Failed recent abx. DVT scan negative. Arterial doppler 03/23/2019 also did not reveal any significant arterial insufficiency. ordered HIV (verbal consent obtained), cat scratch serology, CALI, vasculitis panel, ESR, CRP, C3, C4, treat empirically for now with Vancomycin and Azithromycin, if no response to abx, may need skin biopsy -Suspected RML pneumonia: no respiratory symptoms as such, CT images not consistent with pneumonia, more in favor of atelectasis and pleural effusion. -JOHN on CKD 3, vasomotor nephropathy: Improving. Renally dose abx. -Acute on chronic systolic heart failure: Diuresis, Cardiology consulted, input noted -Painless jaundice and elevated transamines: consulted GI, input noted, Abd U/S unremarkable -Penicillin allergy: not true. Patient tolerated Unasyn and Keflex last admission. 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 Follow-up on current diagnosis of BLE cellulitis. No overnight events reported to me. Patient denies any chest pain, shortness breath, nausea/vomiting or severe headaches. Imaging, nursing note, chart, labs and old chart reviewed. Discussed with patient. Hospitalist Physical - Physical exam Narrative exam: Gen: WDWN, NAD, Awake, Alert, Orientated HEENT: NCAT, EOMI, PERRL, OP Clear Neck: supple, no adenopathy, no thyromegaly, no JVD CVS/Heart: RRR, normal S1S2, pulses present bilaterally Chest/Lungs: CTA B, Symmetrical chest expansion, good air entry bilaterally GI/Abdomen: soft, NTND, good bowel sounds, no guarding or rebound /Bladder: no suprapubic tenderness, no CVA or paraspinal tenderness Extermity/Skin: bilateral leg redness for toes to mid thighs MSK: FROM x 4 Neuro: CN 2-12 grossly intact, no new focal deficits Psych: calm - Constitutional Vitals: Temp Pulse Resp BP Pulse Ox 97.7 F 101 H 20 119/79 97 04/05/19 05:51 04/05/19 13:38 04/05/19 07:45 04/05/19 05:51 04/05/19 07:45 Results - Labs CBC & Chem 7: 04/03/19 09:46 04/04/19 09:15 Labs: Laboratory Last Values WBC 19.5 K/mm3 (4.5-11.0) H 04/03/19 09:46 RBC 5.39 M/mm3 (3.65-5.03) H 04/03/19 09:46 Hgb 14.8 gm/dl (11.8-15.2) 04/03/19 09:46 Hct 46.8 % (35.5-45.6) H 04/03/19 09:46 MCV 87 fl (84-94) 04/03/19 09:46 MCH 27 pg (28-32) L 04/03/19 09:46 MCHC 32 % (32-34) 04/03/19 09:46 RDW 15.8 % (13.2-15.2) H 04/03/19 09:46 Plt Count 209 K/mm3 (140-440) 04/03/19 09:46 Lymph % (Auto) 4.7 % (13.4-35.0) L 04/03/19 09:46 [place] % (Auto) 6.7 % (0.0-7.3) 04/03/19 09:46 Eos % (Auto) 0.0 % (0.0-4.3) 04/03/19 09:46 Baso % (Auto) 0.2 % (0.0-1.8) 04/03/19 09:46 Lymph # 0.9 K/mm3 (1.2-5.4) L 04/03/19 09:46 [place] # 1.3 K/mm3 (0.0-0.8) H 04/03/19 09:46 Eos # 0.0 K/mm3 (0.0-0.4) 04/03/19 09:46 Baso # 0.0 K/mm3 (0.0-0.1) 04/03/19 09:46 Seg Neutrophils % 88.4 % (40.0-70.0) H 04/03/19 09:46 Seg Neutrophils # 17.2 K/mm3 (1.8-7.7) H 04/03/19 09:46 ESR 17 mm/Hr (0-20) 04/04/19 15:46 PT 19.6 Sec. (12.2-14.9) H 04/03/19 09:46 INR 1.70 (0.87-1.13) H 04/03/19 09:46 APTT 31.5 Sec. (24.2-36.6) 04/03/19 09:46 VBG pH 7.418 (7.320-7.420) 04/03/19 09:46 Sodium 138 mmol/L (137-145) 04/04/19 09:15 Potassium 3.5 mmol/L (3.6-5.0) L 04/04/19 09:15 Chloride 98.7 mmol/L (98-107) 04/04/19 09:15 Carbon Dioxide 22 mmol/L (22-30) 04/04/19 09:15 21 mmol/L 04/04/19 09:15 BUN 33 mg/dL (9-20) H 04/04/19 09:15 1.3 mg/dL (0.8-1.5) 04/04/19 09:15 Estimated GFR 56 ml/min 04/04/19 09:15 25 % 04/04/19 09:15 Glucose 126 mg/dL (75-100) H 04/04/19 09:15 Lactic Acid 2.20 mmol/L (0.7-2.0) H* 04/03/19 13:43 Calcium 8.1 mg/dL (8.4-10.2) L 04/04/19 09:15 Magnesium 2.10 mg/dL (1.7-2.3) 04/03/19 11:15 3.30 mg/dL (0.1-1.2) H 04/03/19 09:46 AST 42 units/L (5-40) H 04/03/19 09:46 ALT 69 units/L (7-56) H 04/03/19 09:46 78 units/L (35-129) 04/03/19 09:46 59 units/L (55-170) 04/03/19 11:15 < 0.010 ng/mL (0.00-0.029) 04/03/19 11:15 25.70 mg/dL (0.00-1.30) H 04/04/19 15:46 NT-Pro-B Natriuret Pep 9406 pg/mL (0-900) H 04/03/19 09:46 6.5 g/dL (6.3-8.2) 04/03/19 09:46 2.9 g/dL (3.9-5) L 04/03/19 09:46 0.8 % 04/03/19 09:46 [place] (Yellow) 04/03/19 09:43 Clear (Clear) 04/03/19 09:43 5.0 (5.0-7.0) 04/03/19 09:43 Ur Specific [place] 1.017 (1.003-1.030) 04/03/19 09:43 100 mg/dl mg/dL (Negative) 04/03/19 09:43 Neg mg/dL (Negative) 04/03/19 09:43 Neg mg/dL (Negative) 04/03/19 09:43 Neg (Negative) 04/03/19 09:43 Neg (Negative) 04/03/19 09:43 Neg (Negative) 04/03/19 09:43 < 2.0 mg/dL (<2.0) 04/03/19 09:43 Ur Leukocyte Esterase Neg (Negative) 04/03/19 09:43 1.0 /HPF (0.0-6.0) 04/03/19 09:43 1.0 /HPF (0.0-6.0) 04/03/19 09:43 1+ /HPF (Negative) 04/03/19 09:43 Active Medications - Current Medications Current Medications: Generic Name Dose Route Start Last Admin Trade Name Freq PRN Reason Stop Dose Admin Albuterol 2.5 mg 04/04/19 01:27 Proventil IH QIDRT PRN Shortness Of Breath Arformoterol Tartrate 15 mcg 04/04/19 08:00 04/05/19 07:45 Juliet Pepe IH 15 mcg Q12HRT [facility] Administration Aspirin 81 mg 04/04/19 10:00 04/05/19 13:21 Halfprin Ec PO 81 mg DAILY [facility] Administration Budesonide 1 mg 04/04/19 08:00 04/05/19 07:45 Pulmicort IH 1 mg Q12HRT [facility] Administration Carvedilol 3.125 mg 04/04/19 02:00 04/05/19 10:00 Coreg PO Not Given BID ROSE Famotidine 20 mg 04/04/19 10:00 04/05/19 13:37 Pepcid PO 20 mg QAM [facility] Administration Furosemide 40 mg 04/04/19 06:00 04/05/19 06:52 Lasix PO 40 mg DAILY@0600 [facility] Administration Azithromycin 500 mg/ Sodium 250 mls @ 250 mls/hr 04/04/19 16:00 04/05/19 13:33 Chloride IV 04/09/19 15:59 250 mls/hr Q24HR [facility] Administration Protocol Vancomycin HCl 1,250 mg/ 275 mls @ 166.667 mls/hr 04/05/19 00:00 04/04/19 23:34 Sodium Chloride IV 166.667 mls/hr Q18H [facility] Administration Ampicillin Sodium/Sulbactam Sodium 3 gm in 100 mls @ 200 mls/hr 04/05/19 16:00 Unasyn/Ns 3 Gm/100 Ml IV Q6HR [facility] Protocol Spironolactone 50 mg 04/04/19 10:00 04/05/19 13:38 Aldactone PO 50 mg QDAY [facility] Administration Tramadol HCl 50 mg 04/03/19 23:05 04/04/19 13:38 Ultram PO 50 mg Q6H PRN Administration Pain Triamcinolone Acetonide 1 applic 04/03/19 15:00 04/05/19 13:32 Kenalog TP 1 applic BID [facility] Administration Nutrition/Malnutrition Assess - Dietary Evaluation Nutrition/Malnutrition Findings: Nutrition Notes Start: 04/05/19 10:30 Freq: Status: Active Protocol: Document 04/05/19 10:30 DW (Rec: 04/05/19 11:26 DW [id number]) Co-Sign 04/05/19 10:30 LP Nutrition Notes Need for Assessment generated from: MD Order Initial or Follow up Assessment Current Diagnosis CKD(stage I-IV),Hypertension, Heart Failure Other Pertinent Diagnosis GERD, LE wounds, LE cellulitis , bilateral LE Pitting 3+ Current Diet Cardiac Labs/Tests C Reactive PRO: 25.7 Pro BNP: 9406 Glu: 126 K: 3.5 Ca: 8.1 Pertinent Medications Lasix Height 5 ft 11 in Weight 70 kg [place] Body Weight (kg) 78.18 BMI 21.5 Intake Prior to Admission Poor Weight change and time frame Wt loss but sure of amount Subjective/Other Information MD consult for Malnutrition 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 Now that pt is in hospital he has been feeling hungry and is eager to eat after ultrasound. Pt stated he remembers his last wt at 153 ans stated he has lost a lot of wt the past few months. Pt stated he has measuring cups at home to measure fluid. Noted muscle and fat wasting. Burn Absent Trauma Absent GI Symptoms None Minimum of two criteria Yes Energy Intake (severe) < or equal to 50% Estimated Energy Requirement > or equal to 5 days Body Fat Depletion Mild depletion (non-severe) Muscle Mass Moderate Depletion (severe) Fluid Accumulation Mild (non-severe) #2 Nutrition Diagnosis Increased nutrient needs ( specify in comment below) Comments: PRO Etiology wound healing As Evidenced by Signs and Symptoms bilateral LE wounds #1 Nutrition Diagnosis Malnutrition Etiology debility secondary to chronic illness As Evidenced by Signs and Symptoms poor oral intake >5 days, fat and muscle depletion and fluid accumulation Is patient on ventilator? No Is Patient Ambulatory and/or Out of Bed Yes REE-([facility]-ambulatory/OOB) [ 1985.269 NUTR.[id number]] Kcal/Kg value to use for calculation 33 Approximate Energy Requirements Using 2310 kcal/Kg Calculation Used for Recommendations Kcal/kg Additional Notes PRO needs: 84-105g (1.2-1.5 g/ kg) Fluid needs: Per MD Nutrition Intervention Change Diet Order: Cardiac Diet Add Supplement/Snack (indicate name/kcal Nepro once daily /protein ) Provides kCal: 425 Provides Protein (gm) 19 Goal #1 Meet atleast 80%of kcal/PRO needs via PO/ONS Goal #2 Wt maintenance Goal #3 Wound healing Anticipated Discharge Needs: Cardiac Diet Follow-Up By: 04/09/19 Additional Comments FU PO/ONS intake
[2019-04-05] MEDS: AMPICILLIN/SULBACTA 3GM/100ML 3 GM/100 ML BAG IV SCH (16:52)
[2019-04-05] MEDS: VANCOMYCIN 1,250 MG in SODIUM CHLORIDE 0.9% 250ML 250 ML IV SCH (17:41)
[2019-04-06] MEDS: AMPICILLIN/SULBACTA 3GM/100ML 3 GM/100 ML BAG IV SCH ×5 (01:13→23:40)
[2019-04-06] MEDS: FUROSEMIDE 40 MG TAB PO SCH (05:59)
[2019-04-06 07:22] LABS: INR 1.27 (0.87-1.13)
[2019-04-06 07:39] LABS: Albumin 3.1 g/dL (3.9-5); Calcium 8.9 mg/dL (8.4-10.2); Hepatitis B Surface Antigen Non-Reactive (Negative); Hepatitis C Virus Antibody Non-Reactive (NonReactive)
[2019-04-06] MEDS: ARFORMOTEROL 15 MCG/2 ML NEBU IH SCH ×2 (07:49→21:50)
[2019-04-06] MEDS: BUDESONIDE 0.5 MG/2 ML NEBU IH SCH ×2 (07:49→21:50)
[2019-04-06] MEDS: AZITHROMYCIN 500 MG in SODIUM CHLORIDE 0.9% 250ML 250 ML IV SCH (10:37)
[2019-04-06] MEDS: FAMOTIDINE 20 MG TAB PO SCH (10:38)
[2019-04-06] MEDS: carvediloL 3.125 MG TAB PO SCH ×2 (10:38→23:39)
[2019-04-06] MEDS: ASPIRIN EC 81 MG TAB PO SCH (10:38)
[2019-04-06] MEDS: SPIRONOLACTONE 50 MG TAB PO SCH (10:38)
[2019-04-06] MEDS: TRIAMCINOLONE 0.5% CREAM 15 GM TP SCH ×2 (10:40→23:44)
[2019-04-06] MEDS: VANCOMYCIN 1,250 MG in SODIUM CHLORIDE 0.9% 250ML 250 ML IV SCH (12:00)
[2019-04-06] MEDS: traMADol 50 MG TAB PO PRN (12:02)
--- NOTE | 2019-04-06 12:12 | Progress Note ---
Assessment and Plan Assessment and plan: Patient is a 63 yo man with a history of NICMP, chronic HFrEF, NSVT declines LifeVest/AICD, CKD 3, HTN and mod to severe TR who presents to [facility] ED with fever, chills, ble leg swelling with redness and SOB. Pt was discharged from [facility] on 03/04/19 following treatment for A/CHFrEF. He returned on 03/21/19 with same BLE cellulitis and another CHF exacerbation. He was discharge again on 03/25/19 but returns again on 04/03/19 with same CHF ex/ble cellulitis. * LHC done 04/2017 showed patent coronaries, EF 10-15%. -Sepsis BLE cellulitis, but atypical bilateral cellulitis R>L, pedal edema with b/l LE livedo reticularis and purpuric rash: ?acute bacterial cellulitis v/s vasculitic rash. Failed recent abx. DVT scan negative. Arterial doppler 03/23/2019 also did not reveal any significant arterial insufficiency. ordered HIV (verbal consent obtained), cat scratch serology, CALI, vasculitis panel, ESR, CRP, C3, C4, treat empirically for now with Vancomycin and Azithromycin, if no response to abx, may need skin biopsy -Suspected RML pneumonia: no respiratory symptoms as such, CT images not consistent with pneumonia, more in favor of atelectasis and pleural effusion. -JOHN on CKD 3, vasomotor nephropathy: Improving. Renally dose abx. -Acute on chronic systolic heart failure: Diuresis, Cardiology consulted, input noted -Painless jaundice and elevated transamines: consulted GI, input noted, Abd U/S unremarkable -Penicillin allergy: not true. Patient tolerated Unasyn and Keflex last admission. -Moderate malnutrition: consult Instructional Media Services Technician History Interval history: Patient was seen and examined. Follow-up on current diagnosis of BLE cellulitis. No overnight events reported to me. Patient denies any chest pain, shortness breath, nausea/vomiting or severe headaches. Imaging, nursing note, chart, labs and old chart reviewed. Discussed with patient. Patient upset that his legs are still swollen, he mentions that we have not been giving "liquid lasix", we are giving him his oral home medication of lasix, but he wants IV lasix Hospitalist Physical - Physical exam Narrative exam: Gen: WDWN, NAD, Awake, Alert, Orientated HEENT: NCAT, EOMI, PERRL, OP Clear Neck: supple, no adenopathy, no thyromegaly, no JVD CVS/Heart: RRR, normal S1S2, pulses present bilaterally Chest/Lungs: CTA B, Symmetrical chest expansion, good air entry bilaterally GI/Abdomen: soft, NTND, good bowel sounds, no guarding or rebound /Bladder: no suprapubic tenderness, no CVA or paraspinal tenderness Extermity/Skin: bilateral leg redness for toes to mid thighs MSK: FROM x 4 Neuro: CN 2-12 grossly intact, no new focal deficits Psych: calm - Constitutional Vitals: Temp Pulse Resp BP Pulse Ox 98.0 F 89 20 127/88 96 04/06/19 05:44 04/06/19 07:49 04/06/19 07:49 04/06/19 05:44 04/06/19 07:49 Results - Labs CBC & Chem 7: 04/03/19 09:46 04/06/19 06:18 Labs: Laboratory Last Values WBC 19.5 K/mm3 (4.5-11.0) H 04/03/19 09:46 RBC 5.39 M/mm3 (3.65-5.03) H 04/03/19 09:46 Hgb 14.8 gm/dl (11.8-15.2) 04/03/19 09:46 Hct 46.8 % (35.5-45.6) H 04/03/19 09:46 MCV 87 fl (84-94) 04/03/19 09:46 MCH 27 pg (28-32) L 04/03/19 09:46 MCHC 32 % (32-34) 04/03/19 09:46 RDW 15.8 % (13.2-15.2) H 04/03/19 09:46 Plt Count 209 K/mm3 (140-440) 04/03/19 09:46 Lymph % (Auto) 4.7 % (13.4-35.0) L 04/03/19 09:46 [place] % (Auto) 6.7 % (0.0-7.3) 04/03/19 09:46 Eos % (Auto) 0.0 % (0.0-4.3) 04/03/19 09:46 Baso % (Auto) 0.2 % (0.0-1.8) 04/03/19 09:46 Lymph # 0.9 K/mm3 (1.2-5.4) L 04/03/19 09:46 [place] # 1.3 K/mm3 (0.0-0.8) H 04/03/19 09:46 Eos # 0.0 K/mm3 (0.0-0.4) 04/03/19 09:46 Baso # 0.0 K/mm3 (0.0-0.1) 04/03/19 09:46 Seg Neutrophils % 88.4 % (40.0-70.0) H 04/03/19 09:46 Seg Neutrophils # 17.2 K/mm3 (1.8-7.7) H 04/03/19 09:46 ESR 17 mm/Hr (0-20) 04/04/19 15:46 PT 15.6 Sec. (12.2-14.9) H 04/06/19 06:18 INR 1.27 (0.87-1.13) H 04/06/19 06:18 APTT 31.5 Sec. (24.2-36.6) 04/03/19 09:46 VBG pH 7.418 (7.320-7.420) 04/03/19 09:46 Sodium 138 mmol/L (137-145) 04/06/19 06:18 Potassium 4.2 mmol/L (3.6-5.0) 04/06/19 06:18 Chloride 96.0 mmol/L (98-107) L 04/06/19 06:18 Carbon Dioxide 26 mmol/L (22-30) 04/06/19 06:18 20 mmol/L 04/06/19 06:18 BUN 35 mg/dL (9-20) H 04/06/19 06:18 1.4 mg/dL (0.8-1.5) 04/06/19 06:18 Estimated GFR 52 ml/min 04/06/19 06:18 25 % 04/06/19 06:18 Glucose 140 mg/dL (75-100) H 04/06/19 06:18 Lactic Acid 2.20 mmol/L (0.7-2.0) H* 04/03/19 13:43 Calcium 8.9 mg/dL (8.4-10.2) 04/06/19 06:18 Magnesium 2.10 mg/dL (1.7-2.3) 04/03/19 11:15 2.20 mg/dL (0.1-1.2) H 04/06/19 06:18 AST 58 units/L (5-40) H 04/06/19 06:18 ALT 76 units/L (7-56) H 04/06/19 06:18 137 units/L (35-129) H 04/06/19 06:18 59 units/L (55-170) 04/03/19 11:15 < 0.010 ng/mL (0.00-0.029) 04/03/19 11:15 25.70 mg/dL (0.00-1.30) H 04/04/19 15:46 NT-Pro-B Natriuret Pep 9406 pg/mL (0-900) H 04/03/19 09:46 7.6 g/dL (6.3-8.2) 04/06/19 06:18 3.1 g/dL (3.9-5) L 04/06/19 06:18 0.7 % 04/06/19 06:18 [place] (Yellow) 04/03/19 09:43 Clear (Clear) 04/03/19 09:43 5.0 (5.0-7.0) 04/03/19 09:43 Ur Specific [place] 1.017 (1.003-1.030) 04/03/19 09:43 100 mg/dl mg/dL (Negative) 04/03/19 09:43 Neg mg/dL (Negative) 04/03/19 09:43 Neg mg/dL (Negative) 04/03/19 09:43 Neg (Negative) 04/03/19 09:43 Neg (Negative) 04/03/19 09:43 Neg (Negative) 04/03/19 09:43 < 2.0 mg/dL (<2.0) 04/03/19 09:43 Ur Leukocyte Esterase Neg (Negative) 04/03/19 09:43 1.0 /HPF (0.0-6.0) 04/03/19 09:43 1.0 /HPF (0.0-6.0) 04/03/19 09:43 1+ /HPF (Negative) 04/03/19 09:43 Acetaminophen < 5.0 ug/mL (10.0-30.0) L 04/06/19 06:18 Hepatitis A IgM Ab Non-reactive (NonReactive) 04/06/19 06:18 Hep Bs Antigen Non-reactive (Negative) 04/06/19 06:18 Hep B Core IgM Ab Non-reactive (NonReactive) 04/06/19 06:18 Non-reactive (NonReactive) 04/06/19 06:18 Active Medications - Current Medications Current Medications: Generic Name Dose Route Start Last Admin Trade Name Freq PRN Reason Stop Dose Admin Albuterol 2.5 mg 04/04/19 01:27 Proventil IH QIDRT PRN Shortness Of Breath Arformoterol Tartrate 15 mcg 04/04/19 08:00 04/06/19 07:49 Brovana Nebu IH 15 mcg Q12HRT ROSE Administration Aspirin 81 mg 04/04/19 10:00 04/06/19 10:38 Halfprin Ec PO 81 mg DAILY ROSE Administration Budesonide 0.5 mg 04/05/19 17:18 04/06/19 07:49 Pulmicort IH 0.5 mg Q12HRT ROSE Administration Carvedilol 3.125 mg 04/04/19 02:00 04/06/19 10:38 Coreg PO 3.125 mg BID ROSE Administration Famotidine 20 mg 04/04/19 10:00 04/06/19 10:38 Pepcid PO 20 mg QAM ROSE Administration Furosemide 40 mg 04/07/19 10:00 Lasix IV QDAY ROSE Furosemide 20 mg 04/06/19 18:00 Lasix IV 04/06/19 18:01 ONCE ONE Azithromycin 500 mg/ Sodium 250 mls @ 250 mls/hr 04/04/19 16:00 04/06/19 10:37 Chloride IV 04/09/19 15:59 250 mls/hr Q24HR ROSE Administration Protocol Vancomycin HCl 1,250 mg/ 275 mls @ 166.667 mls/hr 04/05/19 00:00 04/05/19 17:41 Sodium Chloride IV 166.667 mls/hr Q18H ROSE Administration Ampicillin Sodium/Sulbactam Sodium 3 gm in 100 mls @ 200 mls/hr 04/05/19 16:00 04/06/19 05:59 Unasyn/Ns 3 Gm/100 Ml IV 200 mls/hr Q6HR ROSE Administration Protocol Spironolactone 50 mg 04/04/19 10:00 04/06/19 10:38 Aldactone PO 50 mg QDAY ROSE Administration Tramadol HCl 50 mg 04/03/19 23:05 04/06/19 12:02 Ultram PO 50 mg Q6H PRN Administration Pain Triamcinolone Acetonide 1 applic 04/03/19 15:00 04/06/19 10:40 Kenalog TP 1 applic BID ROSE Administration Nutrition/Malnutrition Assess - Dietary Evaluation Nutrition/Malnutrition Findings: Nutrition Notes Start: 04/05/19 10:30 Freq: Status: Active Protocol: Document 04/05/19 10:30 DW (Rec: 04/05/19 11:26 DW [id number]) Co-Sign 04/05/19 10:30 LP Nutrition Notes Need for Assessment generated from: MD Order Initial or Follow up Assessment Current Diagnosis CKD(stage I-IV),Hypertension, Heart Failure Other Pertinent Diagnosis GERD, LE wounds, LE cellulitis , bilateral LE Pitting 3+ Current Diet Cardiac Labs/Tests C Reactive PRO: 25.7 Pro BNP: 9406 Glu: 126 K: 3.5 Ca: 8.1 Pertinent Medications Lasix Height 5 ft 11 in Weight 70 kg [place] Body Weight (kg) 78.18 BMI 21.5 Intake Prior to Admission Poor Weight change and time frame Wt loss but sure of amount Subjective/Other Information MD consult for Malnutrition 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 Now that pt is in hospital he has been feeling hungry and is eager to eat after ultrasound. Pt stated he remembers his last wt at 153 ans stated he has lost a lot of wt the past few months. Pt stated he has measuring cups at home to measure fluid. Noted muscle and fat wasting. Burn Absent Trauma Absent GI Symptoms None Minimum of two criteria Yes Energy Intake (severe) < or equal to 50% Estimated Energy Requirement > or equal to 5 days Body Fat Depletion Mild depletion (non-severe) Muscle Mass Moderate Depletion (severe) Fluid Accumulation Mild (non-severe) #2 Nutrition Diagnosis Increased nutrient needs ( specify in comment below) Comments: PRO Etiology wound healing As Evidenced by Signs and Symptoms bilateral LE wounds #1 Nutrition Diagnosis Malnutrition Etiology debility secondary to chronic illness As Evidenced by Signs and Symptoms poor oral intake >5 days, fat and muscle depletion and fluid accumulation Is patient on ventilator? No Is Patient Ambulatory and/or Out of Bed Yes REE-([facility]-ambulatory/OOB) [ 1985.269 NUTR.MSJOOB] Kcal/Kg value to use for calculation 33 Approximate Energy Requirements Using 2310 kcal/Kg Calculation Used for Recommendations Kcal/kg Additional Notes PRO needs: 84-105g (1.2-1.5 g/ kg) Fluid needs: Per MD Nutrition Intervention Change Diet Order: Cardiac Diet Add Supplement/Snack (indicate name/kcal Nepro once daily /protein ) Provides kCal: 425 Provides Protein (gm) 19 Goal #1 Meet atleast 80%of kcal/PRO needs via PO/ONS Goal #2 Wt maintenance Goal #3 Wound healing Anticipated Discharge Needs: Cardiac Diet Follow-Up By: 04/09/19 Additional Comments FU PO/ONS intake
[2019-04-06] MEDS ORDERED: OXAZEPAM 15 MG CAP PO ONE (13:00)
[2019-04-06] MEDS: ONDANSETRON 4 MG/2 ML INJ IV PRN (13:28)
[2019-04-06] MEDS ORDERED: FUROSEMIDE 20 MG/2 ML INJ IV ONE (18:00)
--- NOTE | 2019-04-06 18:48 | Gastroenterology Progress Note ---
Assessment and Plan 1.elevated LFTs 2.jaundice -plt WNL -INR trending down. -LFT stable. -clinically, patient w/o GI complaints such as abd pain, N/v, or signs of bleeding. -etiology unclear- possibly 2/2 sepsis vs medication induced vs congestive vs other -CALI pending -acute hepatitis panel negative. - US with normal appearing liver. -avoid hepatotoxic agents -continue to trend labs (CMP/INR in am) and supportive care -will follow 3.sepsis/BLE cellulitis 4.?RML pneumonia 5.JOHN on CKD 6.acute on chronic systolic heart failure Subjective Date of service: 04/06/19 Interval history: No acute events o/n. He complains of leg and feet pain. Reports nausea but no vomiting Objective - Constitutional Vitals: Temp Pulse Resp BP Pulse Ox 98.0 F 89 20 127/88 96 04/06/19 05:44 04/06/19 07:49 04/06/19 07:49 04/06/19 05:44 04/06/19 07:49 General appearance: no acute distress - EENT Eyes: EOM intact ENT: hearing intact - Respiratory Respiratory effort: normal - Cardiovascular Rhythm: regular Heart Sounds: Present: S1 & S2 - Gastrointestinal General gastrointestinal: Present: soft, non-tender, non-distended - Neurologic Neurological: alert and oriented x3 - Labs CBC & Chem 7: 04/03/19 09:46 04/06/19 06:18 Labs: Laboratory Results - last 24 hr 04/06/19 04/06/19 04/06/19 06:18 06:18 06:18 PT 15.6 H INR 1.27 H Sodium Potassium Chloride Carbon Dioxide Anion Gap BUN Creatinine Estimated GFR BUN/Creatinine Ratio Glucose Calcium Total Bilirubin AST ALT Alkaline Phosphatase Total Protein Albumin Albumin/Globulin Ratio Acetaminophen < 5.0 L Hepatitis A IgM Ab Non-reactive Hep Bs Antigen Non-reactive Hep B Core IgM Ab Non-reactive Hepatitis C Antibody Non-reactive 04/06/19 06:18 PT INR Sodium 138 Potassium 4.2 Chloride 96.0 L Carbon Dioxide 26 Anion Gap 20 BUN 35 H Creatinine 1.4 Estimated GFR 52 BUN/Creatinine Ratio 25 Glucose 140 H Calcium 8.9 Total Bilirubin 2.20 H AST 58 H ALT 76 H Alkaline Phosphatase 137 H Total Protein 7.6 Albumin 3.1 L Albumin/Globulin Ratio 0.7 Acetaminophen Hepatitis A IgM Ab Hep Bs Antigen Hep B Core IgM Ab Hepatitis C Antibody
[2019-04-07] MEDS: VANCOMYCIN 1,250 MG in SODIUM CHLORIDE 0.9% 250ML 250 ML IV SCH (05:39)
[2019-04-07] MEDS: AMPICILLIN/SULBACTA 3GM/100ML 3 GM/100 ML BAG IV SCH ×4 (05:40→22:21)
--- NOTE | 2019-04-07 07:00 | Progress Note ---
Assessment and Plan Assessment and plan: Patient is a 63 yo man with a history of NICMP, chronic HFrEF, NSVT declines LifeVest/AICD, CKD 3, HTN and mod to severe TR who presents to [facility] ED with fever, chills, ble leg swelling with redness and SOB. Pt was discharged from [facility] on 03/04/19 following treatment for A/CHFrEF. He returned on 03/21/19 with same BLE cellulitis and another CHF exacerbation. He was discharge again on 03/25/19 but returns again on 04/03/19 with same CHF ex/ble cellulitis. * LHC done 04/2017 showed patent coronaries, EF 10-15%. -Sepsis BLE cellulitis, but atypical bilateral cellulitis R>L, pedal edema with b/l LE livedo reticularis and purpuric rash: ?acute bacterial cellulitis v/s vasculitic rash. Failed recent abx. DVT scan negative. Arterial doppler 03/23/2019 also did not reveal any significant arterial insufficiency. HIV (verbal consent obtained) negative, cat scratch serology/ CALI, vasculitis panel, ESR, CRP, C3, C4 all pending, treat empirically for now with Vancomycin and Azithromycin, if no response to abx, may need skin biopsy -Suspected RML pneumonia: no respiratory symptoms as such, CT images not consistent with pneumonia, more in favor of atelectasis and pleural effusion. -JOHN on CKD 3, vasomotor nephropathy: Improving. Renally dose abx. -Acute on chronic systolic heart failure: Diuresis, Cardiology consulted, input noted -Painless jaundice and elevated transamines: consulted GI, input noted, Abd U/S unremarkable -Penicillin allergy: not true. Patient tolerated Unasyn and Keflex last admission. -Moderate malnutrition: consult Burner Technician last day for IV Azithromycin is Monday. History Interval history: Patient was seen and examined. Follow-up on current diagnosis of BLE cellulitis. No overnight events reported to me. Patient denies any chest pain, shortness breath, nausea/vomiting or severe headaches. Imaging, nursing note, chart, labs and old chart reviewed. Discussed with patient. Patient upset that his legs are still swollen, he mentions that we have not been giving "liquid lasix", we are giving him his oral home medication of lasix, but he wants IV lasix Hospitalist Physical - Physical exam Narrative exam: Gen: WDWN, NAD, Awake, Alert, Orientated HEENT: NCAT, EOMI, PERRL, OP Clear Neck: supple, no adenopathy, no thyromegaly, no JVD CVS/Heart: RRR, normal S1S2, pulses present bilaterally Chest/Lungs: CTA B, Symmetrical chest expansion, good air entry bilaterally GI/Abdomen: soft, NTND, good bowel sounds, no guarding or rebound /Bladder: no suprapubic tenderness, no CVA or paraspinal tenderness Extermity/Skin: bilateral leg redness from toes to mid thighs, with diffuse small dime size ulcers MSK: FROM x 4 Neuro: CN 2-12 grossly intact, no new focal deficits Psych: calm - Constitutional Vitals: Temp Pulse Resp BP Pulse Ox 97.4 F L 76 16 115/89 100 04/07/19 04:58 04/07/19 05:29 04/07/19 04:58 04/07/19 04:58 04/07/19 04:58 Results - Labs CBC & Chem 7: 04/07/19 06:45 04/07/19 06:45 Labs: Laboratory Last Values WBC 19.5 K/mm3 (4.5-11.0) H 04/03/19 09:46 RBC 5.39 M/mm3 (3.65-5.03) H 04/03/19 09:46 Hgb 14.8 gm/dl (11.8-15.2) 04/03/19 09:46 Hct 46.8 % (35.5-45.6) H 04/03/19 09:46 MCV 87 fl (84-94) 04/03/19 09:46 MCH 27 pg (28-32) L 04/03/19 09:46 MCHC 32 % (32-34) 04/03/19 09:46 RDW 15.8 % (13.2-15.2) H 04/03/19 09:46 Plt Count 209 K/mm3 (140-440) 04/03/19 09:46 Lymph % (Auto) 4.7 % (13.4-35.0) L 04/03/19 09:46 [place] % (Auto) 6.7 % (0.0-7.3) 04/03/19 09:46 Eos % (Auto) 0.0 % (0.0-4.3) 04/03/19 09:46 Baso % (Auto) 0.2 % (0.0-1.8) 04/03/19 09:46 Lymph # 0.9 K/mm3 (1.2-5.4) L 04/03/19 09:46 [place] # 1.3 K/mm3 (0.0-0.8) H 04/03/19 09:46 Eos # 0.0 K/mm3 (0.0-0.4) 04/03/19 09:46 Baso # 0.0 K/mm3 (0.0-0.1) 04/03/19 09:46 Seg Neutrophils % 88.4 % (40.0-70.0) H 04/03/19 09:46 Seg Neutrophils # 17.2 K/mm3 (1.8-7.7) H 04/03/19 09:46 ESR 17 mm/Hr (0-20) 04/04/19 15:46 PT 15.6 Sec. (12.2-14.9) H 04/06/19 06:18 INR 1.27 (0.87-1.13) H 04/06/19 06:18 APTT 31.5 Sec. (24.2-36.6) 04/03/19 09:46 VBG pH 7.418 (7.320-7.420) 04/03/19 09:46 Sodium 138 mmol/L (137-145) 04/06/19 06:18 Potassium 4.2 mmol/L (3.6-5.0) 04/06/19 06:18 Chloride 96.0 mmol/L (98-107) L 04/06/19 06:18 Carbon Dioxide 26 mmol/L (22-30) 04/06/19 06:18 20 mmol/L 04/06/19 06:18 BUN 35 mg/dL (9-20) H 04/06/19 06:18 1.4 mg/dL (0.8-1.5) 04/06/19 06:18 Estimated GFR 52 ml/min 04/06/19 06:18 25 % 04/06/19 06:18 Glucose 140 mg/dL (75-100) H 04/06/19 06:18 Lactic Acid 2.20 mmol/L (0.7-2.0) H* 04/03/19 13:43 Calcium 8.9 mg/dL (8.4-10.2) 04/06/19 06:18 Magnesium 2.10 mg/dL (1.7-2.3) 04/03/19 11:15 2.20 mg/dL (0.1-1.2) H 04/06/19 06:18 AST 58 units/L (5-40) H 04/06/19 06:18 ALT 76 units/L (7-56) H 04/06/19 06:18 137 units/L (35-129) H 04/06/19 06:18 59 units/L (55-170) 04/03/19 11:15 < 0.010 ng/mL (0.00-0.029) 04/03/19 11:15 25.70 mg/dL (0.00-1.30) H 04/04/19 15:46 NT-Pro-B Natriuret Pep 9406 pg/mL (0-900) H 04/03/19 09:46 7.6 g/dL (6.3-8.2) 04/06/19 06:18 3.1 g/dL (3.9-5) L 04/06/19 06:18 0.7 % 04/06/19 06:18 Clarita (Yellow) 04/03/19 09:43 Clear (Clear) 04/03/19 09:43 5.0 (5.0-7.0) 04/03/19 09:43 Ur Specific [place] 1.017 (1.003-1.030) 04/03/19 09:43 100 mg/dl mg/dL (Negative) 04/03/19 09:43 Neg mg/dL (Negative) 04/03/19 09:43 Neg mg/dL (Negative) 04/03/19 09:43 Neg (Negative) 04/03/19 09:43 Neg (Negative) 04/03/19 09:43 Neg (Negative) 04/03/19 09:43 < 2.0 mg/dL (<2.0) 04/03/19 09:43 Ur Leukocyte Esterase Neg (Negative) 04/03/19 09:43 1.0 /HPF (0.0-6.0) 04/03/19 09:43 1.0 /HPF (0.0-6.0) 04/03/19 09:43 1+ /HPF (Negative) 04/03/19 09:43 Acetaminophen < 5.0 ug/mL (10.0-30.0) L 04/06/19 06:18 Hepatitis A IgM Ab Non-reactive (NonReactive) 04/06/19 06:18 Hep Bs Antigen Non-reactive (Negative) 04/06/19 06:18 Hep B Core IgM Ab Non-reactive (NonReactive) 04/06/19 06:18 Non-reactive (NonReactive) 04/06/19 06:18 Active Medications - Current Medications Current Medications: Generic Name Dose Route Start Last Admin Trade Name Freq PRN Reason Stop Dose Admin Albuterol 2.5 mg 04/04/19 01:27 Proventil IH QIDRT PRN Shortness Of Breath Arformoterol Tartrate 15 mcg 04/04/19 08:00 04/06/19 21:50 Brovana Nebu IH Not Given Q12HRT [facility] Aspirin 81 mg 04/04/19 10:00 04/06/19 10:38 Halfprin Ec PO 81 mg DAILY ROSE Administration Budesonide 0.5 mg 04/05/19 17:18 04/06/19 21:50 Pulmicort IH Not Given Q12HRT ROSE Carvedilol 3.125 mg 04/04/19 02:00 04/06/19 23:39 Coreg PO 3.125 mg BID ROSE Administration Famotidine 20 mg 04/04/19 10:00 04/06/19 10:38 Pepcid PO 20 mg QAM ROSE Administration Furosemide 40 mg 04/07/19 10:00 Lasix IV QDAY ROSE Azithromycin 500 mg/ Sodium 250 mls @ 250 mls/hr 04/04/19 16:00 04/06/19 23:46 Chloride IV 04/09/19 15:59 Infused Q24HR ROSE Infusion Protocol Vancomycin HCl 1,250 mg/ 275 mls @ 166.667 mls/hr 04/05/19 00:00 04/07/19 05:39 Sodium Chloride IV 166.667 mls/hr Q18H ROSE Administration Ampicillin Sodium/Sulbactam Sodium 3 gm in 100 mls @ 200 mls/hr 04/05/19 16:00 04/07/19 05:40 Unasyn/Ns 3 Gm/100 Ml IV 200 mls/hr Q6HR ROSE Administration Protocol Ondansetron HCl 4 mg 04/06/19 12:51 04/06/19 13:28 Zofran IV 4 mg Q4H PRN Administration Nausea And Vomiting Spironolactone 50 mg 04/04/19 10:00 04/06/19 10:38 Aldactone PO 50 mg QDAY ROSE Administration Triamcinolone Acetonide 1 applic 04/03/19 15:00 04/06/19 23:44 Kenalog TP 1 applic BID ROSE Administration Nutrition/Malnutrition Assess - Dietary Evaluation Nutrition/Malnutrition Findings: Nutrition Notes Start: 04/05/19 10:30 Freq: Status: Active Protocol: Document 04/05/19 10:30 DW (Rec: 04/05/19 11:26 DW [id number]) Co-Sign 04/05/19 10:30 LP Nutrition Notes Need for Assessment generated from: MD Order Initial or Follow up Assessment Current Diagnosis CKD(stage I-IV),Hypertension, Heart Failure Other Pertinent Diagnosis GERD, LE wounds, LE cellulitis , bilateral LE Pitting 3+ Current Diet Cardiac Labs/Tests C Reactive PRO: 25.7 Pro BNP: 9406 Glu: 126 K: 3.5 Ca: 8.1 Pertinent Medications Lasix Height 5 ft 11 in Weight 70 kg [place] Body Weight (kg) 78.18 BMI 21.5 Intake Prior to Admission Poor Weight change and time frame Wt loss but sure of amount Subjective/Other Information MD consult for Malnutrition 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 Now that pt is in hospital he has been feeling hungry and is eager to eat after ultrasound. Pt stated he remembers his last wt at 153 ans stated he has lost a lot of wt the past few months. Pt stated he has measuring cups at home to measure fluid. Noted muscle and fat wasting. Burn Absent Trauma Absent GI Symptoms None Minimum of two criteria Yes Energy Intake (severe) < or equal to 50% Estimated Energy Requirement > or equal to 5 days Body Fat Depletion Mild depletion (non-severe) Muscle Mass Moderate Depletion (severe) Fluid Accumulation Mild (non-severe) #2 Nutrition Diagnosis Increased nutrient needs ( specify in comment below) Comments: PRO Etiology wound healing As Evidenced by Signs and Symptoms bilateral LE wounds #1 Nutrition Diagnosis Malnutrition Etiology debility secondary to chronic illness As Evidenced by Signs and Symptoms poor oral intake >5 days, fat and muscle depletion and fluid accumulation Is patient on ventilator? No Is Patient Ambulatory and/or Out of Bed Yes REE-([place]) [ 1985.269 NUTR.MSJOOB] Kcal/Kg value to use for calculation 33 Approximate Energy Requirements Using 2310 kcal/Kg Calculation Used for Recommendations Kcal/kg Additional Notes PRO needs: 84-105g (1.2-1.5 g/ kg) Fluid needs: Per MD Nutrition Intervention Change Diet Order: Cardiac Diet Add Supplement/Snack (indicate name/kcal Nepro once daily /protein ) Provides kCal: 425 Provides Protein (gm) 19 Goal #1 Meet atleast 80%of kcal/PRO needs via PO/ONS Goal #2 Wt maintenance Goal #3 Wound healing Anticipated Discharge Needs: Cardiac Diet Follow-Up By: 04/09/19 Additional Comments FU PO/ONS intake
[2019-04-07 07:22] LABS: Hematocrit 41.2 % (35.5-45.6); Mean Corpuscular HGB Conc 31 % (32-34); Mean Corpuscular Volume 87 fl (84-94); Platelet Count 257 K/mm3 (140-440); Red Blood Count 4.73 M/mm3 (3.65-5.03); Red Cell Distribution Width 16.1 % (13.2-15.2)
[2019-04-07 07:40] LABS: Albumin 2.6 g/dL (3.9-5); Calcium 8.3 mg/dL (8.4-10.2)
[2019-04-07 07:46] LABS: INR 1.15 (0.87-1.13)
[2019-04-07] MEDS: ARFORMOTEROL 15 MCG/2 ML NEBU IH SCH ×2 (07:55→20:01)
[2019-04-07] MEDS: BUDESONIDE 0.5 MG/2 ML NEBU IH SCH ×2 (07:55→20:01)
[2019-04-07] MEDS: AZITHROMYCIN 500 MG in SODIUM CHLORIDE 0.9% 250ML 250 ML IV SCH (09:20)
[2019-04-07] MEDS: carvediloL 3.125 MG TAB PO SCH ×2 (09:21→22:21)
[2019-04-07] MEDS: FAMOTIDINE 20 MG TAB PO SCH (09:21)
[2019-04-07] MEDS: SPIRONOLACTONE 50 MG TAB PO SCH (09:21)
[2019-04-07] MEDS: FUROSEMIDE 40 MG/4 ML INJ IV SCH (09:21)
[2019-04-07] MEDS: ASPIRIN EC 81 MG TAB PO SCH (09:22)
[2019-04-07] MEDS: TRIAMCINOLONE 0.5% CREAM 15 GM TP SCH ×2 (09:22→22:47)
[2019-04-07] MEDS: ONDANSETRON 4 MG/2 ML INJ IV PRN ×3 (10:14→22:57)
--- NOTE | 2019-04-07 14:00 | Gastroenterology Progress Note ---
Assessment and Plan 1.elevated LFTs 2.jaundice -plt WNL - liver enzymes and INR trending down. -clinically, patient w/o GI complaints such as abd pain, N/v, or signs of bleeding. -etiology unclear- possibly 2/2 sepsis vs medication induced vs congestive vs other -CALI pending, acute hepatitis panel negative, US with normal appearing liver. -avoid hepatotoxic agents -continue to trend labs (CMP/INR in am) and supportive care -will follow 3.sepsis/BLE cellulitis 4.?RML pneumonia 5.JOHN on CKD 6.acute on chronic systolic heart failure Subjective Date of service: 04/07/19 Interval history: No acute events o/n. Patient continues to have b/l leg pain and swelling Objective - Constitutional Vitals: Temp Pulse Resp BP Pulse Ox 97.4 F L 96 H 20 115/89 100 04/07/19 04:58 04/07/19 07:55 04/07/19 07:55 04/07/19 04:58 04/07/19 04:58 - EENT Eyes: EOM intact ENT: hearing intact - Neck Neck: supple - Respiratory Respiratory effort: normal - Cardiovascular Rhythm: regular Heart Sounds: Present: S1 & S2 - Gastrointestinal General gastrointestinal: Present: soft, non-tender, non-distended - Neurologic Neurological: alert and oriented x3 - Labs CBC & Chem 7: 04/07/19 06:45 04/07/19 06:45 Labs: Laboratory Results - last 24 hr 04/07/19 04/07/19 04/07/19 06:45 06:45 06:45 WBC 12.6 H RBC 4.73 Hgb 13.0 Hct 41.2 MCV 87 MCH 27 L MCHC 31 L RDW 16.1 H Plt Count 257 PT 14.4 INR 1.15 H Sodium 135 L Potassium 4.0 Chloride 95.2 L Carbon Dioxide 25 Anion Gap 19 BUN 37 H Creatinine 1.4 Estimated GFR 52 BUN/Creatinine Ratio 26 Glucose 121 H Calcium 8.3 L Total Bilirubin 1.30 H AST 54 H ALT 71 H Alkaline Phosphatase 103 Total Protein 6.3 Albumin 2.6 L Albumin/Globulin Ratio 0.7
[2019-04-08] MEDS: VANCOMYCIN 1,250 MG in SODIUM CHLORIDE 0.9% 250ML 250 ML IV SCH (00:10)
[2019-04-08] MEDS: AMPICILLIN/SULBACTA 3GM/100ML 3 GM/100 ML BAG IV SCH ×2 (00:10→07:00)
[2019-04-08] MEDS: BUDESONIDE 0.5 MG/2 ML NEBU IH SCH (08:04)
[2019-04-08] MEDS: ARFORMOTEROL 15 MCG/2 ML NEBU IH SCH (08:05)
[2019-04-08 08:12] LABS: Hematocrit 41.7 % (35.5-45.6); Hemoglobin 13.2 gm/dl (11.8-15.2); Mean Corpuscular HGB Conc 32 % (32-34); Mean Corpuscular Volume 86 fl (84-94); Platelet Count 334 K/mm3 (140-440); Red Blood Count 4.82 M/mm3 (3.65-5.03); Red Cell Distribution Width 16.1 % (13.2-15.2)
[2019-04-08 08:30] LABS: Albumin 2.9 g/dL (3.9-5); Calcium 8.7 mg/dL (8.4-10.2)
[2019-04-08] MEDS: FAMOTIDINE 20 MG TAB PO SCH (09:57)
[2019-04-08] MEDS: ASPIRIN EC 81 MG TAB PO SCH (09:57)
[2019-04-08] MEDS: SPIRONOLACTONE 50 MG TAB PO SCH (09:57)
[2019-04-08] MEDS: carvediloL 3.125 MG TAB PO SCH (09:58)
[2019-04-08] MEDS ORDERED: VANCOMYCIN 1,250 MG in SODIUM CHLORIDE 0.9% 250ML 250 ML IV SCH (10:00)
[2019-04-08] MEDS: FUROSEMIDE 40 MG/4 ML INJ IV SCH (10:07)
--- NOTE | 2019-04-08 10:30 | Progress Note ---
Assessment and Plan Cultures: 03/21/2019 blood culture: No growth 04/03/2019 urine culture: No significant growth 04/03/2019 blood culture: No growth MRSA culture negative A/P: 63-year-old male with congestive heart failure with 2 recent admissions for CHF and then possible cellulitis. Now with: 1) Leucocytosis: improving, ?bilateral cellulitis R>L, pedal edema with b/l LE livedo reticularis and purpuric rash: ?acute bacterial cellulitis v/s vasculitic rash +/- scabies (already treated). Failed recent abx. DVT scan negative. Arterial doppler 03/23/2019 also did not reveal any significant arterial insufficiency. ESR is low at 17, CRP is high 25. Has a cat at home and reports multiple scratches. 2) ?RML pneumonia: no respiratory symptoms as such, CT images not consistent with pneumonia, more in favor of atelectasis and pleural effusion. 3) JOHN on CKD: Improving. Renally dose abx. 4) CHF 5) Penicillin allergy: not true. Patient tolerated Unasyn and Keflex last admission. 6) Elevated LFTs and bilirubin: GI following. Viral hepatitis panel negative Recs: f/u HIV, cat scratch serology, CALI, ANCA, C3, C4 stop IV Unasyn + Vancomycin Day 5 start ceftin 500 mg po q 12 h continue Azithromycin, D4 of 5 today (empiric coverage of cat scratch disease) Ok to d/c from ID stand point - at discharge continue ceftin 500 mg po q 12 h until 04/11 and azithromycin PO x 1 more dose to complete 5 days. Needs ID clinic f/u to f/u all pending labs patient wants his inhaler and desires to go home soon so he can schedule a pacemaker placement. Discussed with Dr Navarro Will follow. Anya Lockett MD Infectious Diseases Mixing Roll Operator [facility] M [phone] O [phone] Subjective Date of service: 04/08/19 Principal diagnosis: cellulitis Interval history: Patient feels better but he is upset as his inhaler was taken away during admission and he wants to have it with him, wants to go home. No fever. Objective - Exam Narrative Exam: General appearance: Alert in NAD Eyes: anicteric sclerae, moist conjunctivae; no lid-lag; PERRLA HENT: Atraumatic; oropharynx clear Lungs: CTA CV: RRR Abdomen: Soft, non-tender; no masses or hepatosplenomegaly Extremities:oj marked edema with mild erythema to the right leg Skin: multiple nodular rash with scabs allover legs, arms Psych: no agitated Neuro: alert and oriented x 3. Moving all extermities - Constitutional Vitals: Vital Signs Temp Pulse Resp BP Pulse Ox 97.7 F 112 H 17 129/95 99 04/08/19 04:00 04/08/19 09:58 04/08/19 08:05 04/08/19 09:58 04/08/19 08:07 Temperature -Last 24 Hours Temperature 97.7 F Temperature 97.6 F Temperature 97.4 F Temperature 97.0 F - Labs CBC & Chem 7: 04/08/19 07:31 04/08/19 07:31 Labs: Abnormal lab results 04/08/19 04/08/19 Range/Units 07:31 07:31 WBC 13.2 H (4.5-11.0) K/mm3 MCH 27 L (28-32) pg RDW 16.1 H (13.2-15.2) % Sodium 136 L (137-145) mmol/L Chloride 94.3 L (98-107) mmol/L BUN 42 H (9-20) mg/dL Glucose 127 H (75-100) mg/dL Total Bilirubin 1.60 H (0.1-1.2) mg/dL AST 49 H (5-40) units/L ALT 75 H (7-56) units/L Albumin 2.9 L (3.9-5) g/dL
[2019-04-08] MEDS ORDERED: AZITHROMYCIN 250 MG TAB PO SCH (11:00)
--- NOTE | 2019-04-08 11:06 | Gastroenterology Progress Note ---
Assessment and Plan 1.elevated LFTs 2.jaundice -plt WNL -INR and LFTs-trended down/stable -acetaminophen level negative -acute hepatitis panel negative -CALI pending -liver normal on U/S -etiology unclear- possibly 2/2 sepsis vs medication induced vs congestive vs other -clinically, patient w/o GI complaints. Tolerating diet. -avoid hepatotoxic agents -continue to trend labs and supportive care -patient okay to be d/c per GI standpoint with f/u in clinic for further workup if LFTs remain elevated -will sign off, please call if needed 3.sepsis/BLE cellulitis 4.?RML pneumonia 5.JOHN on CKD 6.acute on chronic systolic heart failure Subjective Date of service: 04/08/19 Principal diagnosis: elevated LFTs Interval history: No acute distress or new GI complaints. Tolerating diet. Objective - Constitutional Vitals: Temp Pulse Resp BP Pulse Ox 97.7 F 112 H 17 129/95 99 04/08/19 04:00 04/08/19 09:58 04/08/19 08:05 04/08/19 09:58 04/08/19 08:07 General appearance: no acute distress - EENT Eyes: PERRL, EOM intact ENT: hearing intact - Respiratory Respiratory effort: normal - Cardiovascular Rhythm: other (tachycardia) - Gastrointestinal General gastrointestinal: Present: soft, non-distended, normal bowel sounds - Neurologic Neurological: alert and oriented x3 - Labs CBC & Chem 7: 04/08/19 07:31 04/08/19 07:31 Labs: Laboratory Results - last 24 hr 04/07/19 04/08/19 04/08/19 22:22 07:31 07:31 WBC 13.2 H RBC 4.82 Hgb 13.2 Hct 41.7 MCV 86 MCH 27 L MCHC 32 RDW 16.1 H Plt Count 334 Sodium 136 L Potassium 4.6 Chloride 94.3 L Carbon Dioxide 24 Anion Gap 22 BUN 42 H Creatinine 1.5 Estimated GFR 48 BUN/Creatinine Ratio 28 Glucose 127 H Calcium 8.7 Total Bilirubin 1.60 H AST 49 H ALT 75 H Alkaline Phosphatase 117 Total Protein 6.8 Albumin 2.9 L Albumin/Globulin Ratio 0.7 Vancomycin Trough 20.0
--- NOTE | 2019-04-08 11:54 | Discharge Summary ---
Providers - Providers Date of Admission: 04/03/19 14:26 Date of discharge: 04/08/19 Attending physician: CARLOS ARIAS 04/04/19 06:22 Consult to Wound/ET Nurse [CONS] Routine Reason For Exam: healing sores BLE 04/04/19 08:28 Consult to Physician [CONS] Routine Comment: Consulting Provider: DIAMOND MANZANO Physician Instructions: I notified Reason For Exam: sepsis, ble cellulitis, ?RML pneumonia 04/04/19 15:33 Consult to Physician [CONS] Routine Comment: Consulting Provider: TERESA SOLARES Physician Instructions: Reason For Exam: painless jaundice, elevated transamines 04/04/19 15:37 Consult to Dietitian/Nutrition [CONS] Routine Physician Instructions: Reason For Exam: Reason for Consult: Malnutrition [facility] Condition: Stable Hospital course: Patient is a 63 yo man with a history of NICMP, chronic HFrEF, NSVT declines LifeVest/AICD, CKD 3, HTN and mod to severe TR who presents to [facility] ED with fever, chills, ble leg swelling with redness and SOB. Pt was discharged from [facility] on 03/04/19 following treatment for A/CHFrEF. He returned on 03/21/19 with same BLE cellulitis and another CHF exacerbation. He was discharge again on 03/25/19 but returns again on 04/03/19 with same CHF ex/ble cellulitis. * LHC done 04/2017 showed patent coronaries, EF 10-15%. Discharge Diagnoses: -Sepsis BLE cellulitis, but atypical bilateral cellulitis R>L, pedal edema with b/l LE livedo reticularis and purpuric rash: ?acute bacterial cellulitis v/s vasculitic rash. Failed recent abx. DVT scan negative. Arterial doppler 03/23/2019 also did not reveal any significant arterial insufficiency. HIV (verbal consent obtained) negative, cat scratch serology/ CALI, vasculitis panel, ESR, CRP, C3, C4 all pending, treat empirically for now with Vancomycin and Azithromycin, if no response to abx, may need skin biopsy -Suspected RML pneumonia: no respiratory symptoms as such, CT images not consistent with pneumonia, more in favor of atelectasis and pleural effusion. -JOHN on CKD 3, vasomotor nephropathy: Improving. Renally dose abx. -Acute on chronic systolic heart failure: Diuresis, Cardiology consulted, input noted -Painless jaundice and elevated transamines, most likely Hepatic congestion from heart failure: consulted GI, input noted, Abd U/S unremarkable -Penicillin allergy: not true. Patient tolerated Unasyn and Keflex last admission. -Moderate malnutrition: consult Speed Reading Teacher -Suspected Scabies s/p permethrin treatment -Suspected Cat scratch disease on Azithromycin, D4 of 5 today (empiric coverage of cat scratch disease) -NICMP, patient has decided he will go for ICD at [facility], he now understand that the leg swelling is mainly due to his heart failure, he still has some denial Disposition: DC-01 TO HOME OR SELFCARE Time spent for discharge: 36 minutes Core Measure Documentation - Palliative Care Palliative Care/ Comfort Measures: Not Applicable - Core Measures Any of the following diagnoses?: heart failure - VTE Discharge Requirements Deep Vein Thrombosis/Pulmonary Embolism Present on Admission: No Has pt received <5 days of overlap therapy or INR<2.0: No Anticoagulant overlap therapy prescribed at discharge: No Contraindication No Overlap Therapy order at DC: Not Indicated - Heart Failure Discharge Requirements GRACIE/ARB for LVSD if EF <40%: Yes Beta james at discharge: Yes Exam - Physical Exam Narrative exam: Gen: WDWN, NAD, Awake, Alert, Orientated HEENT: NCAT, EOMI, PERRL, OP Clear Neck: supple, no adenopathy, no thyromegaly, no JVD CVS/Heart: RRR, normal S1S2, pulses present bilaterally Chest/Lungs: CTA B, Symmetrical chest expansion, good air entry bilaterally GI/Abdomen: soft, NTND, good bowel sounds, no guarding or rebound /Bladder: no suprapubic tenderness, no CVA or paraspinal tenderness Extermity/Skin: bilateral leg redness from toes to mid thighs, with diffuse small dime size ulcers MSK: FROM x 4 Neuro: CN 2-12 grossly intact, no new focal deficits Psych: calm - Constitutional Vitals: Temp Pulse Resp BP Pulse Ox 97.7 F 112 H 17 129/95 99 04/08/19 04:00 04/08/19 09:58 04/08/19 08:05 04/08/19 09:58 04/08/19 08:07 Plan Activity: other (no strenous activity unless cleared by your Heart doctor) Diet: low salt Wound: per wound nurse instructions Special Instructions: record daily weights Additional Instructions: 1) follow up lab results for Vasculitis with Dr. Diamond Manzano. 2) see Dr. Bearden at Wound care clinic, [phone]. 3) see your Printed Circuit Boards Stripper Etcher for Defibrillator [facility] [Primary Care Provider] - 3-5 Days DIAMOND MANZANO MD [Staff Physician] - 7 Days TERESA SOLARES MD [Staff Physician] - 7 Days JUAN BEARDEN MD [Staff Physician] - 7 Days Prescriptions: Spironolactone [Aldactone] 50 mg PO QDAY #30 tablet cefUROXime [Ceftin] 2 tab PO BID #8 tablet Carvedilol [Coreg] 3.125 mg PO BID #60 tablet Furosemide [Lasix TAB] 40 mg PO DAILY@0600 #30 tablet ALBUTEROL Inhaler (OR & NICU) [ProAir HFA Inhaler] 2 puff IH QID PRN #2 inha PRN Reason: Shortness Of Breath Budesonide/Formoterol Fumarate [Symbicort 160-4.5 Mcg Inhaler] 2 puff IH BID #1 unit Azithromycin [Zithromax TAB] 2 tab PO QDAY #2 tablet ALBUTEROL NEB's [Proventil 0.083% NEBS] 2.5 mg IH QIDRT PRN #30 nebu PRN Reason: Shortness Of Breath
[2019-04-08 13:03] VITALS: BP 125/91
[2019-04-08] MEDS: TRIAMCINOLONE 0.5% CREAM 15 GM TP SCH (13:55)
[2019-04-08] MEDS: AZITHROMYCIN 500 MG in SODIUM CHLORIDE 0.9% 250ML 250 ML IV SCH (15:44)
[2019-04-12 21:36] LABS: ANA Screen, IFA Negative (Negative)
[2019-04-14 00:36] LABS: Myeloperoxidase Antibody <1.0 AI (<1.0)
[2019-04-16 07:10] LABS: HIV-1 Antibody Differentiation SEE SCANNED RESULT; HIV-2 Antibody Differentiation SEE SCANNED RESULT
== END 2019-04-08 14:00 | disposition home health service (06) | DRG 871 ==
LOC: ED 08:14 → 3A 14:26
PROVIDERS: ADMIT Internal Medicine; ATTEND Internal Medicine
DX: A41.9 Sepsis, unspecified organism (principal); N17.0 Acute kidney failure with tubular necrosis; I50.23 Acute on chronic systolic (congestive) heart failure; J18.1 Lobar pneumonia, unspecified organism; L03.116 Cellulitis of left lower limb; I42.9 Cardiomyopathy, unspecified; G89.29 Other chronic pain; J44.9 Chronic obstructive pulmonary disease, unspecified; L03.115 Cellulitis of right lower limb; E87.1 Hypo-osmolality and hyponatremia; K21.9 Gastro-esophageal reflux disease without esophagitis; I13.0 Hypertensive heart and chronic kidney disease with heart failure and stage 1 through stage 4 chronic kidney disease, or unspecified chronic kidney disease; N18.3 Chronic kidney disease, stage 3 (moderate); B86 Scabies; R17 Unspecified jaundice; E44.0 Moderate protein-calorie malnutrition; Z68.21 Body mass index [BMI] 21.0-21.9, adult; Z82.49 Family history of ischemic heart disease and other diseases of the circulatory system; Z88.0 Allergy status to penicillin; Z91.030 Bee allergy status; Z79.51 Long term (current) use of inhaled steroids; Z79.82 Long term (current) use of aspirin; Z79.899 Other long term (current) drug therapy; Z87.442 Personal history of urinary calculi
CPT/HCPCS: 36415; 70450; 71045; 71250; 76705; 80048; 80053; 80074; 80202; 80320; 81001; 82140; 82550; 82805; 83735; 83880; 84484; 85025; 85027; 85610; 85652; 85730; 86021; 86038; 86140; 86160; 86689; 87040; 87086; 87116; 93005; 93010; 93970; 94640; 94760; 96365; G0378; G0480; J0295; J0456; J0692; J1940; J2405; J3370; J7040; J7050

== ENCOUNTER 2019-06-02 06:17 | Inpatient (IN) | payer MEDICAID ==
--- NOTE | 2019-06-02 06:34 | Emergency Department Report ---
ED General Adult HPI - General Stated complaint: WOUNDS TO FEET Time Seen by Provider: 06/02/19 06:27 - History of Present Illness Initial comments: This is a 63-year-old male with a complex past medical history and multiple hospitalizations within the last 3 months. I am told that he is a "hoarder" and was found in an extremely non-hygienic environment apparently incapable of taking care of himself. The patient admits that he is "bedridden". It does not appear that he has an appropriate caregiver. He is found disheveled and covered with stool. He has multiple sores which appear to be healing excoriations. Patient knows he is at [facility]. He cannot tell me the year. He complains of abdominal pain for the last 3 days. He is barely able to give any historical information upon my initial exam. He is requiring multiple nurses to him up and obtain vital signs. Per the last hospitalization discharge 04/08/2019: Hospitalization Condition: Stable Hospital course: Patient is a 63 yo man with a history of NICMP, chronic HFrEF, NSVT declines LifeVest/AICD, CKD 3, HTN and mod to severe TR who presents to [facility] ED with fever, chills, ble leg swelling with redness and SOB. Pt was discharged from [facility] on 03/04/19 following treatment for A/CHFrEF. He returned on 03/21/19 with same BLE cellulitis and another CHF exacerbation. He was discharge again on 03/25/19 but returns again on 04/03/19 with same CHF ex/ble cellulitis. LHC done 04/2017 showed patent coronaries, EF 10-15%. Discharge Diagnoses: -Sepsis BLE cellulitis, but atypical bilateral cellulitis R>L, pedal edema with b/l LE livedo reticularis and purpuric rash: ?acute bacterial cellulitis v/s vasculitic rash. Failed recent abx. DVT scan negative. Arterial doppler 03/23/2019 also did not reveal any significant arterial insufficiency. HIV (verbal consent obtained) negative, cat scratch serology/ CALI, vasculitis panel, ESR, CRP, C3, C4 all pending, treat empirically for now with Vancomycin and Azithromycin, if no response to abx, may need skin biopsy -Suspected RML pneumonia: no respiratory symptoms as such, CT images not consistent with pneumonia, more in favor of atelectasis and pleural effusion. -JOHN on CKD 3, vasomotor nephropathy: Improving. Renally dose abx. -Acute on chronic systolic heart failure: Diuresis, Cardiology consulted, input noted -Painless jaundice and elevated transamines, most likely Hepatic congestion from heart failure: consulted GI, input noted, Abd U/S unremarkable -Penicillin allergy: not true. Patient tolerated Unasyn and Keflex last admission. -Moderate malnutrition: consult Student Services Vice President -Suspected Scabies s/p permethrin treatment -Suspected Cat scratch disease on Azithromycin, D4 of 5 today (empiric coverage of cat scratch disease) -NICMP, patient has decided he will go for ICD at [facility], he now un derstand that the leg swelling is mainly due to his heart failure, he still has some denial Disposition: DC-01 TO HOME OR SELFCARE Time spent for discharge: 36 minutes - Related Data Previous Rx's Medication Instructions Recorded Last Taken Type traMADoL [Ultram 50 MG tab] 50 mg PO Q6HR PRN #12 tablet 03/25/19 03/30/19 Rx ALBUTEROL Inhaler (OR & NICU) 2 puff IH QID PRN #2 inha 04/08/19 Unknown Rx [ProAir HFA Inhaler] ALBUTEROL NEB's [Proventil 0.083% 2.5 mg IH QIDRT PRN #30 nebu 04/08/19 Unknown Rx NEBS] Aspirin EC [Halfprin EC] 81 mg PO DAILY #30 04/08/19 03/30/19 Rx Azithromycin [Zithromax TAB] 2 tab PO QDAY #2 tablet 04/08/19 Unknown Rx Budesonide/Formoterol Fumarate 2 puff IH BID #1 unit 04/08/19 Unknown Rx [Symbicort 160-4.5 Mcg Inhaler] Furosemide [Lasix TAB] 40 mg PO DAILY@0600 #30 tablet 04/08/19 Unknown Rx Spironolactone [Aldactone] 50 mg PO QDAY #30 tablet 04/08/19 Unknown Rx carvediloL [Coreg] 3.125 mg PO BID #60 tablet 04/08/19 Unknown Rx cefUROXime [Ceftin] 2 tab PO BID #8 tablet 04/08/19 Unknown Rx Allergies Allergy/AdvReac Type Severity Reaction Status Date / Time venom-honey bee Allergy Hives Verified 04/03/19 10:10 [bee venom (honey bee)] morphine AdvReac Unknown Verified 04/03/19 10:10 Penicillins AdvReac Nausea Verified 04/08/19 08:57 ED Review of Systems ROS: Stated complaint: WOUNDS TO FEET Other details as noted in HPI Comment: Unobtainable due to pts medical conditions (largely unobtainable) ED Past Medical Hx - Past Medical History Hx Hypertension: Yes Hx Congestive Heart Failure: Yes Hx Diabetes: No Hx Kidney Stones: Yes Hx Asthma: No Hx COPD: No Additional medical history: MITRAL VALVE REGURGITATION - Surgical History Additional Surgical History: for broken bones - Social History Smoking Status: Never Smoker - Medications Home Medications: Home Medications Medication Instructions Recorded Confirmed Last Taken Type traMADoL [Ultram 50 MG tab] 50 mg PO Q6HR PRN #12 tablet 03/25/19 04/03/19 03/30/19 Rx ALBUTEROL Inhaler (OR & NICU) 2 puff IH QID PRN #2 inha 04/08/19 Unknown Rx [ProAir HFA Inhaler] ALBUTEROL NEB's [Proventil 0.083% 2.5 mg IH QIDRT PRN #30 nebu 04/08/19 Unknown Rx NEBS] Aspirin EC [Halfprin EC] 81 mg PO DAILY #30 04/08/19 04/03/19 03/30/19 Rx Azithromycin [Zithromax TAB] 2 tab PO QDAY #2 tablet 04/08/19 Unknown Rx Budesonide/Formoterol Fumarate 2 puff IH BID #1 unit 04/08/19 Unknown Rx [Symbicort 160-4.5 Mcg Inhaler] Furosemide [Lasix TAB] 40 mg PO DAILY@0600 #30 tablet 04/08/19 Unknown Rx Spironolactone [Aldactone] 50 mg PO QDAY #30 tablet 04/08/19 Unknown Rx carvediloL [Coreg] 3.125 mg PO BID #60 tablet 04/08/19 Unknown Rx cefUROXime [Ceftin] 2 tab PO BID #8 tablet 04/08/19 Unknown Rx ED Physical Exam - General Limitations: Physical Limitation General appearance: other (extreme state of poor hygiene, covered with stool) - Head Head exam: Present: atraumatic - Eye Eye exam: Present: scleral icterus - ENT ENT exam: Present: mucous membranes dry - Neck Neck exam: Absent: tenderness, meningismus - Respiratory Respiratory exam: Present: normal lung sounds bilaterally - Cardiovascular Cardiovascular Exam: Present: regular rate, normal rhythm - GI/Abdominal GI/Abdominal exam: Present: soft, tenderness (there appears to be some lower abdominal diffuse discomfort to palpation), normal bowel sounds. Absent: distended, guarding, rebound, rigid - Extremities Exam Extremities exam: Absent: pedal edema, calf tenderness - Neurological Exam Neurological exam: Present: other (preliminary exam appears to be nonfocal) - Psychiatric Psychiatric exam: Present: normal mood, flat affect - Skin Skin exam: Present: other (multiple excoriations with superinfection) ED Course Vital Signs 06/02/19 06/02/19 06:55 08:09 Temperature 97.8 F Pulse Rate 88 Respiratory 20 20 Rate Blood Pressure 124/88 [Right] O2 Sat by Pulse 100 100 Oximetry - Reevaluation(s) Reevaluation #1: CT showed a moderate amount of free air. Radiologist thinks likely secondary to gastric or to why no perforation. Large right-sided pleural effusion also seen. CT report discussed with Dr. Sims. Patient is pending OR. Also discussed with hospitalist Dr. Mathew the who states that she will be seeing the patient in the emergency department. 06/02/19 10:06 Reevaluation #2: Informed patient of the need for surgical care. He is aware. Given additional fluids. He was given intravenous antibiotics already. Pang catheter and Protonix ordered. 06/02/19 10:08 ED Medical Decision Making - Lab Data Result diagrams: 06/02/19 07:15 06/02/19 07:15 Laboratory Results - last 24 hr 06/02/19 06/02/19 06/02/19 07:15 07:15 07:15 WBC 21.0 H RBC 5.17 H Hgb 14.1 Hct 44.0 MCV 85 MCH 27 L MCHC 32 RDW 23.8 H Plt Count 215 Seg Neutrophils % Iuss Acoustic Analyst PT 17.9 H INR 1.50 H APTT 33.2 VBG pH Sodium 130 L Potassium 4.7 Chloride 97.1 L Carbon Dioxide 16 L Anion Gap 22 BUN 47 H Creatinine 0.9 Estimated GFR > 60 BUN/Creatinine Ratio 52 Glucose 139 H Lactic Acid Calcium 8.4 Magnesium 1.70 Total Bilirubin 6.40 H Direct Bilirubin 4.5 H Indirect Bilirubin 1.9 AST 50 H ALT 45 Alkaline Phosphatase 179 H Ammonia Total Creatine Kinase 53 L CK-MB (CK-2) 5.1 H CK-MB (CK-2) Rel Index 9.6 H Troponin T NT-Pro-B Natriuret Pep > 20250 H Total Protein 5.8 L Albumin 2.1 L Albumin/Globulin Ratio 0.6 Triglycerides Cholesterol LDL Cholesterol Direct HDL Cholesterol Cholesterol/HDL Ratio Lipase 06/02/19 06/02/19 06/02/19 07:15 07:15 07:15 WBC RBC Hgb Hct MCV MCH MCHC RDW Plt Count Seg Neutrophils % PT INR APTT VBG pH 7.310 L Sodium Potassium Chloride Carbon Dioxide Anion Gap BUN Creatinine Estimated GFR BUN/Creatinine Ratio Glucose Lactic Acid 2.40 H* Calcium Magnesium Total Bilirubin Direct Bilirubin Indirect Bilirubin AST ALT Alkaline Phosphatase Ammonia 16.0 L Total Creatine Kinase CK-MB (CK-2) CK-MB (CK-2) Rel Index Troponin T NT-Pro-B Natriuret Pep Total Protein Albumin Albumin/Globulin Ratio Triglycerides Cholesterol LDL Cholesterol Direct HDL Cholesterol Cholesterol/HDL Ratio Lipase 06/02/19 06/02/19 07:15 09:17 WBC RBC Hgb Hct MCV MCH MCHC RDW Plt Count Seg Neutrophils % PT INR APTT VBG pH Sodium Potassium Chloride Carbon Dioxide Anion Gap BUN Creatinine Estimated GFR BUN/Creatinine Ratio Glucose Lactic Acid 1.10 Calcium Magnesium Total Bilirubin Direct Bilirubin Indirect Bilirubin AST ALT Alkaline Phosphatase Ammonia Total Creatine Kinase CK-MB (CK-2) CK-MB (CK-2) Rel Index Troponin T 0.065 H NT-Pro-B Natriuret Pep Total Protein Albumin Albumin/Globulin Ratio Triglycerides 112 Cholesterol 73 LDL Cholesterol Direct 31 L HDL Cholesterol 8 L Cholesterol/HDL Ratio 9.12 Lipase 56 Critical Care Time: Yes Critical care time in (mins) excluding proc time.: 90 Critical care attestation.: If time is entered above; I have spent that time in minutes in the direct care of this critically ill patient, excluding procedure time. ED Disposition Clinical Impression: Pneumoperitoneum, Pleural effusion, Prerenal azotemia Sepsis Qualifiers: Sepsis type: sepsis due to unspecified organism Sepsis acute organ dysfunction status: unspecified Qualified Code(s): A41.9 - Sepsis, unspecified organism Cardiomyopathy Qualifiers: Cardiomyopathy type: unspecified Qualified Code(s): I42.9 - Cardiomyopathy, unspecified Disposition: DC-09 OP ADMIT IP TO THIS HOSP Is pt being admited?: Yes Does the pt Need Aspirin: No Condition: Stable
[2019-06-02] MEDS ORDERED: SODIUM CHLORIDE 0.9% 500 ML 500 ML IV ONE (06:37)
--- NOTE | 2019-06-02 07:14 | XRay Report ---
CHEST 1 VIEW, 06/02/2019 6:50 AM CLINICAL INFORMATION/INDICATION: Sepsis COMPARISON: Chest radiograph, 04/03/2019 FINDINGS: SUPPORT DEVICES: None. HEART: There is stable moderate enlargement of the cardiac silhouette. LUNGS/PLEURA: Faint bibasilar airspace opacities are noted. There is a trace right pleural effusion. ADDITIONAL FINDINGS: No additional acute findings. IMPRESSION: 1. Bibasilar airspace opacities that may be related to either developing infiltrate or atelectasis. 2. Trace right pleural effusion. 3. Stable enlargement of the cardiac silhouette. Signer Name: Chelsie Ty MD Signed: 06/02/2019 7:10 AM Workstation Name: [email or web address]
[2019-06-02] MEDS ORDERED: MEROPENEM/NS 1 GRAM/100 ML 1 GRAM/100 ML BAG IV ONE (07:21)
[2019-06-02 07:31] LABS: Hemoglobin 14.1 gm/dl (11.8-15.2); Mean Corpuscular HGB Conc 32 % (32-34); Mean Corpuscular Volume 85 fl (84-94); Platelet Count 215 K/mm3 (140-440); Red Blood Count 5.17 M/mm3 (3.65-5.03)
[2019-06-02 07:34] LABS: Red Cell Distribution Width 23.8 % (13.2-15.2)
[2019-06-02 07:44] LABS: INR 1.5 (0.87-1.13)
[2019-06-02 07:45] LABS: Partial Thromboplastin Time 33.2 Sec. (24.2-36.6)
[2019-06-02 07:57] LABS: Creatine Kinase MB 5.1 ng/mL (0.0-4.0)
[2019-06-02 08:00] LABS: Albumin 2.1 g/dL (3.9-5); BUN/Creatinine Ratio 52; Blood Urea Nitrogen 47 mg/dL (9-20); Calcium 8.4 mg/dL (8.4-10.2); Hemolysis Index 133
[2019-06-02] MEDS ORDERED: VANCOMYCIN PHARMACY TO DOSE IV SCH (08:00)
[2019-06-02] MEDS ORDERED: VANCOMYCIN 1,250 MG in SODIUM CHLORIDE 0.9% 250ML 250 ML IV ONE (08:15)
[2019-06-02 08:29] LABS: Chol/HDL Ratio 9.12 %
[2019-06-02] MEDS ORDERED: SODIUM CHLORIDE 0.9% 1000 ML 1,000 ML IV ONE ×2 (08:44→09:56)
[2019-06-02 09:13] LABS: Alanine Aminotransferase 45 units/L (7-56); Bilirubin,Direct 4.5 mg/dL (0-0.2)
--- NOTE | 2019-06-02 09:22 | Cat Scan Report ---
CT head/brain wo con INDICATION: trauma, AMS. TECHNIQUE: Routine CT head without contrast. All CT scans at this location are performed using CT dos e reduction for ALARA by means of automated exposure control. COMPARISON: Noncontrast brain CT 04/03/2019 FINDINGS: BRAIN / INTRACRANIAL CONTENTS: No acute hemorrhage, mass effect, midline shift, or hydrocephalus. No appreciable acute large territorial or lacunar infarct. ORBITS: No significant abnormality of visualized orbits. IMPRESSION: 1. No acute intracranial abnormality. Signer Name: Jelani Saavedra MD Signed: 06/02/2019 9:17 AM Workstation Name: [id number]
--- NOTE | 2019-06-02 09:28 | Cat Scan Report ---
CT MAXILLOFACIAL WITHOUT CONTRAST INDICATION / CLINICAL INFORMATION: trauma. TECHNIQUE: All CT scans at this location are performed using CT dose reduction for ALARA by means of automated e xposure control. COMPARISON: Noncontrast brain CT performed the same time FINDINGS: FACIAL BONES: Acute, mildly displaced fractures of both nasal bones. There is probably also a mildly depressed fracture of the left nasal process of the maxilla. PARANASAL SINUSES: Nonspecific mucosal thickening is present in the maxillary sinuses, and at some of the ethmoidal air cells are opacified. Otherwise the paranasal sinuses are clear. Absence of normal turbinates and a large hole through the nasal septum are noted. ORBITS: No significant abnormality. VISUALIZED INTRACRANIAL STRUCTURES: No significant abnormality. ADDITIONAL FINDINGS: Dentition is poor. IMPRESSION: 1. Acute, mildly displaced fractures of bilateral nasal bones and the nasal process of maxilla on t he left. 2. Other incidental findings as in the body of the report. Signer Name: Jelani Saavedra MD Signed: 06/02/2019 9:23 AM Workstation Name: [id number]
--- NOTE | 2019-06-02 09:38 | Cat Scan Report ---
CT ABDOMEN AND PELVIS WITHOUT CONTRAST INDICATION: Unspecified abdominal pain. COMPARISON: Right upper quadrant ultrasound from 04/05/2019. TECHNIQUE: Axial, coronal and sagittal CT imaging of the abdomen and pelvis was performed without co ntrast. Lack of intravenous contrast limits evaluation of the vascular and solid organs. All CT sca ns at this location are performed using CT dose reduction for ALARA by means of automated exposure co ntrol. FINDINGS: Motion artifact limits the study. LOWER CHEST: There is a moderate right pleural effusion and small left pleural effusion with associat ed atelectasis. Moderate cardiomegaly is seen without a significant pericardial effusion. LIVER: No significant abnormality. BILIARY: No significant abnormality. PANCREAS: No significant abnormality. SPLEEN: No significant abnormality. ADRENALS: No significant abnormality. KIDNEYS AND URETERS: Nonobstructive renal stones are seen bilaterally measuring 2-3 mm. No additional significant abnormality is seen. GI TRACT: There is nonspecific generalized thickening of the stomach without another distinct abnorma lity. There is generalized mild thickening of the small bowel that is also nonspecific. No acute abno rmality of the colon is seen. The appendix is unremarkable. PERITONEUM: A moderate amount of free air is seen mainly along the upper abdomen without a clear sour ce. There is generalized mesenteric/peritoneal edema with a small amount of free fluid seen along the pelvis. No organized fluid collection is seen. LYMPH NODES: No significant adenopathy. VASCULATURE: The aorta is normal in caliber and mildly calcified. URINARY BLADDER: No significant abnormality. REPRODUCTIVE ORGANS: No significant abnormality. ADDITIONAL FINDINGS: There is anasarca. SKELETAL SYSTEM: Degenerative changes are seen throughout the spine and along the SI joints without a n acute abnormality. IMPRESSION: 1. Pneumoperitoneum, possibly due to a ruptured gastric or duodenal ulcer. 2. Bilateral pleural effusions, right greater than left, with generalized edema. 3. Additional findings as above. CRITICAL RESULT: Radiologist: Dr. Gonzales Time of Discovery: 08:25 BATCHING OPERATOR Time of Communication: 08:30 BATCHING OPERATOR Licensed Practitioner Receiving Report: Dr. Rivera Read Back Performed: Yes. Signer Name: Alexandru Gonzales MD Signed: 06/02/2019 9:34 AM Workstation Name: [id number]
[2019-06-02] MEDS ORDERED: PANTOPRAZOLE 40 MG INJ IV ONE (09:41)
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
[2019-06-02 10:45] LABS: Anisocytosis 1+; Band Neutrophils # (Manual) 0.2 K/mm3; Basophils % (Manual) 0 % (0.0-1.8); Eosinophils % (Manual) 0 % (0.0-4.3); Platelet Estimate Consistent w Auto; Total Cells Counted 100
[2019-06-02 10:51] LABS: Bacteria,Urine 1+ /HPF (Negative); Bilirubin,Urine NEG (Negative); Blood,Urine NEG (Negative); Color,Urine Amber (Yellow); Protein,Urine <15 mg/dL mg/dL (Negative)
[2019-06-02] MEDS ORDERED: SODIUM CHLORIDE 0.9% 500 ML 500 ML ONE (11:29)
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
--- NOTE | 2019-06-02 11:41 | Consultation ---
History of Present Illness Consult date: 06/02/19 Requesting physician: LALO BALDWIN Consult reason: pre op evaluation History of present illness: The patient is followed by Dr. Alatorre in our office. He has a history of severe nonischemic cardiomyopathy with an ejection fraction of 1015 percent on echocardiogram in February 2017. Coronary angiography in April 2017 revealed normal coronary arteries. He also has a history of nonsustained ventricular tachycardia and sinus node dysfunction. Due to sinus pauses during a hospitalization in March 2019, Coreg was discontinued. 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 In March 2019, he declined life vest and ICD which were strongly recommended to him. He claims that he developed abdominal pain early this morning prompting presentation to the ER. He denies nausea, vomiting or change in bowel habits. He has chronic exertional dyspnea as well as chronic orthopnea which is unchanged. Past History Past Medical History: arrhythmia (NSVT, sinus pauses), heart failure (chronic HFrEF), hypertension, renal failure (JOHN), other (PAD with chronic LE wounds; Normal coronaries 04/25.) Past Surgical History: cataract removal, Other (surgery for renal stones.) Social history: lives with family, smoking, alcohol abuse Family history: denies: CAD Medications and Allergies Allergies Allergy/AdvReac Type Severity Reaction Status Date / Time venom-honey bee Allergy Hives Verified 04/03/19 10:10 [bee venom (honey bee)] morphine AdvReac Unknown Verified 04/03/19 10:10 Penicillins AdvReac Nausea Verified 04/08/19 08:57 Home Medications Medication Instructions Recorded Confirmed Last Taken Type traMADoL [Ultram 50 MG tab] 50 mg PO Q6HR PRN #12 tablet 03/25/19 04/03/19 03/30/19 Rx ALBUTEROL Inhaler (OR & NICU) 2 puff IH QID PRN #2 inha 04/08/19 Unknown Rx [ProAir HFA Inhaler] ALBUTEROL NEB's [Proventil 0.083% 2.5 mg IH QIDRT PRN #30 nebu 04/08/19 Unknown Rx NEBS] Aspirin EC [Halfprin EC] 81 mg PO DAILY #30 04/08/19 04/03/19 03/30/19 Rx Azithromycin [Zithromax TAB] 2 tab PO QDAY #2 tablet 04/08/19 Unknown Rx Budesonide/Formoterol Fumarate 2 puff IH BID #1 unit 04/08/19 Unknown Rx [Symbicort 160-4.5 Mcg Inhaler] Furosemide [Lasix TAB] 40 mg PO DAILY@0600 #30 tablet 04/08/19 Unknown Rx Spironolactone [Aldactone] 50 mg PO QDAY #30 tablet 04/08/19 Unknown Rx carvediloL [Coreg] 3.125 mg PO BID #60 tablet 04/08/19 Unknown Rx cefUROXime [Ceftin] 2 tab PO BID #8 tablet 04/08/19 Unknown Rx Active Meds: Active Medications Albuterol (Proventil) 2.5 mg IH QIDRT PRN PRN Reason: Shortness Of Breath Vancomycin HCl (Vancomycin/Ns 1 Gm/250 Ml) 1 gm in 250 mls @ 166.667 mls/hr IV Q12H ROSE Miscellaneous Medication (Budesonide/Formoterol Fumarate [Symbicort 160-4.5 Mcg Inhaler]) 2 puff IH BID ROSE Review of Systems Constitutional: no fever, no chills Ears, nose, mouth and throat: no ear pain, no ear discharge, no sore throat Cardiovascular: orthopnea, dyspnea on exertion, no chest pain, no palpitations, no lightheadedness Respiratory: dyspnea on exertion, no cough, no hemoptysis Gastrointestinal: abdominal pain, no nausea, no vomiting, no diarrhea, no constipation Genitourinary Male: no dysuria, no urinary frequency Rectal: no pain, no bleeding Musculoskeletal: no neck stiffness, no neck pain, no myalgias Integumentary: wounds (on LEs) Neurological: no weakness, no numbness, no headaches Endocrine: no cold intolerance, no heat intolerance Hematologic/Lymphatic: no easy bruising, no easy bleeding Allergic/Immunologic: no urticaria, no wheezing Physical Examination Vital Signs Temp Pulse Resp BP Pulse Ox 97.8 F 88 20 124/88 10 L 06/02/19 06:55 06/02/19 06:55 06/02/19 06:55 06/02/19 06:55 06/02/19 06:55 General appearance: no acute distress HEENT: Positive: EOMI, Normocephaly, Mucus Membranes Moist Neck: Positive: neck supple, trachea midline, Carotid Upstroke (full) Cardiac: Positive: Reg Rate and Rhythm, S1/S2 Lungs: Positive: clear to auscultation Neuro: Positive: Grossly Intact Abdomen: Positive: Soft, Tender Skin: Positive: Other (multiple wounds on both lower extremities with areas of ischemic ulceration.) Musculoskeletal: Normal Range of Motion Extremities: Present: +1 Edema (bilateral leg and feet) Results 06/02/19 07:15 06/02/19 07:15 Cardiac Enzymes 06/02/19 Range/Units 07:15 AST 50 H (5-40) units/L CK-MB (CK-2) 5.1 H (0.0-4.0) ng/mL Coagulation 06/02/19 Range/Units 07:15 PT 17.9 H (12.2-14.9) Sec. INR 1.50 H (0.87-1.13) APTT 33.2 (24.2-36.6) Sec. Lipids 06/02/19 Range/Units 07:15 Triglycerides 112 (2-149) mg/dL Cholesterol 73 (50-199) mg/dL HDL Cholesterol 8 L (40-59) mg/dL Cholesterol/HDL Ratio 9.12 % CBC 06/02/19 Range/Units 07:15 WBC 21.0 H (4.5-11.0) K/mm3 RBC 5.17 H (3.65-5.03) M/mm3 Hgb 14.1 (11.8-15.2) gm/dl Hct 44.0 (35.5-45.6) % Plt Count 215 (140-440) K/mm3 Comprehensive Metabolic Panel 06/02/19 Range/Units 07:15 Sodium 130 L (137-145) mmol/L Potassium 4.7 (3.6-5.0) mmol/L Chloride 97.1 L (98-107) mmol/L Carbon Dioxide 16 L (22-30) mmol/L BUN 47 H (9-20) mg/dL Creatinine 0.9 (0.8-1.5) mg/dL Glucose 139 H (75-100) mg/dL Calcium 8.4 (8.4-10.2) mg/dL Direct Bilirubin 4.5 H (0-0.2) mg/dL Indirect Bilirubin 1.9 mg/dL AST 50 H (5-40) units/L ALT 45 (7-56) units/L Alkaline Phosphatase 179 H (35-129) units/L Total Protein 5.8 L (6.3-8.2) g/dL Albumin 2.1 L (3.9-5) g/dL - Imaging and Cardiology EKG: image reviewed EKG interpretations - Telemetry EKG Rhythm: Sinus Rhythm - EKG Sinus rhythms and dysrhythmias: sinus rhythm Chamber hypertrophy or enlargement: left ventricular hypertro Repolarization changes or abnormalities: repolarization abn secondary to ventricular hypertrophy Myocardial infarction: septal [place] (old age or ind Assessment and Plan Considering his underlying cardiac diagnoses, prior refusal of ICD/LifeVest, and multiple comorbid conditions, he is a very high risk surgical candidate. However, he requires urgent surgery for possible perforated viscus. I have explained to the patient about his surgical risk and he understands. At this p oint, he will proceed with surgery with risk status as noted. I have also discussed with the anesthesiologist about close intraoperative and postoperative monitoring. There is not much that can be done to optimize his cardiac status preoperatively at this point. Intravenous fluids and vasopressor support as needed. - Patient Problems (1) Pneumoperitoneum Current Visit: Yes Status: Acute (2) Sepsis Current Visit: Yes Status: Acute Qualifiers: Sepsis type: sepsis due to unspecified organism Sepsis acute organ dysfunction status: unspecified Qualified Code(s): A41.9 - Sepsis, unspecified organism (3) Chronic HFrEF (heart failure with reduced ejection fraction) Current Visit: Yes Status: Chronic (4) Nonischemic cardiomyopathy Current Visit: Yes Status: Chronic (5) Sinus node dysfunction Current Visit: Yes Status: Chronic (6) NSVT (nonsustained ventricular tachycardia) Current Visit: Yes Status: Chronic (7) HTN (hypertension) Current Visit: Yes Status: Chronic Qualifiers: Hypertension type: essential hypertension Qualified Code(s): I10 - Essential (primary) hypertension (8) Pulmonary hypertension Current Visit: Yes Status: Chronic (9) PAD (peripheral artery disease) Current Visit: Yes Status: Chronic
[2019-06-02] MEDS ORDERED: SUCCINYLCHOLINE CHLORIDE 200 MG/10 ML INJ MDV ONE (11:51)
[2019-06-02] MEDS ORDERED: ETOMIDATE 20 MG/10 ML INJ IV ONE (11:51)
[2019-06-02] MEDS ORDERED: HYDROmorphone 1 MG/1 ML INJ ONE (11:51)
[2019-06-02] MEDS ORDERED: ROCURONIUM 50 MG/5 ML INJ IV ONE (11:52)
[2019-06-02] MEDS ORDERED: LIDOCAINE MPF (2%) 20 MG/1 ML VIAL 5 ML ONE (11:52)
[2019-06-02] MEDS ORDERED: SODIUM CHLORIDE 0.9% IRR 1,500 ML BOTTLE IR ONE ×2 (14:10)
--- NOTE | 2019-06-02 14:27 | Post Operative Note ---
Pre-op diagnosis: perforated viscus Post-op diagnosis: other (perforated gastric ulcer) Findings: <0.2 cm perforation in the anterior stomach at the pylorus with gross bilious fluid in abdomen IVF: 500cc Uo: 25 cc EBL: 25 cc Procedure: Exploratory laparotomy, omental patch of perforated gastric ulcer Anesthesia: UDAY Surgeon: JASIEL WHEELER Nursing Unit Manager: ROSS GAINES Estimated blood loss: minimal Pathology: list (1. intraabdominal fluid cultures 2. gastric biopsy) Specimen disposition: to lab Condition: stable Disposition: PACU
[2019-06-02] MEDS ORDERED: MINERAL OIL/PETROLATUM, WHITE OPHTH OINT 3.5 GM OU PRN (14:28)
[2019-06-02] MEDS ORDERED: fentaNYL 100 MCG/2 ML INJ IV PRN (14:28)
[2019-06-02] MEDS ORDERED: LIP THERAPY VASELINE TP PRN (14:28)
[2019-06-02] MEDS: PROPOFOL 1,000 MG/100 ML BOTTLE IV SCH (15:21)
--- NOTE | 2019-06-02 15:29 | XRay Report ---
CHEST 1 VIEW 06/02/2019 2:47 PM INDICATION / CLINICAL INFORMATION: ETT placement. COMPARISON: One view of the chest from earlier today. FINDINGS: SUPPORT DEVICES: An ET tube has been placed with the tip located 6.4 cm above the olya. An NG tube is partially visualized with the side port projecting over the distal third of the esophagus. A right internal jugular CVL has been placed with the tip projecting over the mid SVC. HEART / MEDIASTINUM: Stable. LUNGS / PLEURA: Aeration of the right lung base has improved. Opacities remain throughout the right l law and along the left lung base. No significant pleural effusion. No pneumothorax. ADDITIONAL FINDINGS: No significant additional findings. IMPRESSION: 1. Interval intubation with improved aeration of the right lung base. 2. Partially visualized NG tube with the side port located along the distal esophagus. Advancement by 4-5 cm is recommended. 3. Additional findings as above. Signer Name: Alexandru Gonzales MD Signed: 06/02/2019 3:25 PM Workstation Name: [id number]
[2019-06-02] MEDS ORDERED: DEXTROSE 50% IN WATER (25GM) 50 ML SYRINGE IV ONE (15:50)
[2019-06-02] MEDS: fentaNYL DRIP Premix 2,000 MCG/100 ML BAG IV SCH (16:21)
--- NOTE | 2019-06-02 16:27 | Anesthesia Consultation ---
Anesthesia Consult and Med Hx Date of service: 06/02/19 - Airway Anesthetic Teeth Evaluation: Poor ROM Head & Neck: Adequate Mental/Hyoid Distance: Adequate Mallampati Class: Class II Intubation Access Assessment: Probably Good - Pulmonary Exam CTA: Yes - Cardiac Exam Cardiac Exam: RRR - Pre-Operative Health Status ASA Pre-Surgery Classification: ASA4, Emergency Proposed Anesthetic Plan: General (CHF EF 10-15 %, HTN, sepsis , bilateral pleural effusions for emergent ex lap ) - Pulmonary Hx Asthma: No COPD: No Hx Pneumonia: No - Cardiovascular System Hx Hypertension: Yes - Endocrine Hx End Stage Renal Disease: No
--- NOTE | 2019-06-02 16:28 | Anesthesia Day of Surgery ---
Anesthesia Day of Surgery - Day of Surgery Patient Examined: Yes Patient H&P Reviewed: Yes Patient is NPO: Yes
--- NOTE | 2019-06-02 16:28 | Post Anesthesia Evaluation ---
- Post Anesthesia Evaluation Patient Participated: Yes Airway Patent: Yes Stable Respiratory Function: Yes Nausea/Vomiting: No Temp > 96.8F: Yes Pain Manageable: Yes Adequeate Hydration: Yes Anesthesia Complications: No Block Receding Appropriately: Not Applicable Patient on Ventilator: Yes
[2019-06-02] MEDS: MEROPENEM/NS 500 MG/50 ML 500 MG/50 ML BAG IV SCH ×2 (17:00→23:04)
[2019-06-02] MEDS: PANTOPRAZOLE 80 MG in SODIUM CHLORIDE 0.9% 100 ML IV SCH (17:58)
[2019-06-02] MEDS: ARFORMOTEROL 15 MCG/2 ML NEBU IH SCH (19:24)
[2019-06-02] MEDS: BUDESONIDE 0.5 MG/2 ML NEBU IH SCH (19:25)
[2019-06-02] MEDS ORDERED: VANCOMYCIN/NS 1 GM/250 ML 1 GM/250 ML BAG IV SCH (21:00)
[2019-06-02] MEDS ORDERED: NON-FORMULARY EACH (Budesonide/Formoterol Fumarate [Symbicort 160-4.5 Mcg Inhaler] 2 PUFF) IH SCH (22:00)
--- NOTE | 2019-06-03 03:32 | XRay Report ---
CHEST 1 VIEW, 06/03/2019 2:28 AM CLINICAL INFORMATION/INDICATION: Respiratory failure COMPARISON: Chest radiograph, 06/02/2019 at 2:47 PM FINDINGS: SUPPORT DEVICES: The endotracheal tube and right-sided central line remain in stable position. The es ophagogastric tube is present with sidehole at the level of the gastroesophageal junction. HEART: There is stable enlargement of the cardiac silhouette. LUNGS/PLEURA: Faint bilateral interstitial edema is noted. ADDITIONAL FINDINGS: No additional acute findings. IMPRESSION: 1. Stable enlargement of the cardiac silhouette. 2. Faint bilateral interstitial edema. 3. Sidehole of the esophagogastric tube is located at the gastroesophageal junction. Tube will need t o be advanced for optimal positioning. Signer Name: Chelsie Ty MD Signed: 06/03/2019 3:28 AM Workstation Name: [id number]
[2019-06-03] MEDS: PANTOPRAZOLE 80 MG in SODIUM CHLORIDE 0.9% 100 ML IV SCH ×2 (03:55→14:30)
[2019-06-03] MEDS: MEROPENEM/NS 500 MG/50 ML 500 MG/50 ML BAG IV SCH ×4 (04:22→23:18)
[2019-06-03 05:08] LABS: Hematocrit 41.5 % (35.5-45.6); Hemoglobin 13.3 gm/dl (11.8-15.2); Mean Corpuscular HGB Conc 32 % (32-34); Mean Corpuscular Volume 85 fl (84-94); Platelet Count 171 K/mm3 (140-440)
[2019-06-03 05:36] LABS: Albumin 1.7 g/dL (3.9-5); Calcium 8.4 mg/dL (8.4-10.2)
[2019-06-03] MEDS ORDERED: DEXTROSE 50% IN WATER (25GM) 50 ML SYRINGE IV ONE (05:57)
[2019-06-03 06:10] LABS: Anisocytosis 2+; Band Neutrophils # (Manual) 0.2 K/mm3; Basophils % (Manual) 0 % (0.0-1.8); Eosinophils % (Manual) 0 % (0.0-4.3); Poikilocytosis 2+; Total Cells Counted 100
[2019-06-03 06:11] LABS: Burr Cells 1+; Large Platelets 1+; Platelet Estimate Consistent w Auto; Target Cells 1+
[2019-06-03] MEDS: ARFORMOTEROL 15 MCG/2 ML NEBU IH SCH ×2 (07:42→20:47)
[2019-06-03] MEDS: BUDESONIDE 0.5 MG/2 ML NEBU IH SCH ×2 (07:42→20:47)
[2019-06-03] MEDS ORDERED: D5W/0.9% NACL 1,000 ML IV SCH (09:00)
--- NOTE | 2019-06-03 09:52 | Operative Report ---
PREOPERATIVE DIAGNOSIS: Perforated viscus. POSTOPERATIVE DIAGNOSIS: Perforated gastric ulcer. FINDINGS: Less than 0.2 cm perforation in the anterior stomach at the pylorus with gross bilious fluid in the abdomen. IV FLUIDS: 500 mL. URINE OUTPUT: 25 mL. ESTIMATED BLOOD LOSS: 25 mL. PROCEDURE: Exploratory laparotomy, omental patch of perforated gastric ulcer, peritoneal lavage. ANESTHESIA: General endotracheal anesthesia. SURGEON: Cecilia Sims D.O. [employer] SURGEON: Jerrell Ruano M.D. ESTIMATED BLOOD LOSS: Minimal. PATHOLOGY: 1. Intra-abdominal fluid cultures. 2. Gastric ulcer biopsy. SPECIMEN DISPOSITION: To lab. CONDITION AT DISPOSITION: The patient is intubated to PACU. HISTORY OF PRESENT ILLNESS AND INDICATION: The patient is a 63-year-old male who lives at home with his sister, who presented to the ER with EMS secondary to wounds on bilateral lower extremities as well as abdominal pain. The patient is an extremely poor historian. Most of the history is obtained from the chart. He complained of abdominal pain for 4 days; however, could not characterize or describe the pain. The patient is bedbound and upon arrival to the Emergency Room, was covered in stool. He was found to have pneumoperitoneum on CT scan of the abdomen and pelvis and Surgery was consulted. The recommendation was to proceed with exploratory laparotomy emergently to identify the source of pneumoperitoneum. All risks, benefits and alternatives to surgery were discussed with the patient and questions answered. Consent obtained. PROCEDURE IN DETAIL: The patient was identified in the preoperative area and taken back to the operating room and placed on the operating table in supine position. After anesthesia was induced, a central line and A line were placed by Anesthesia. The abdomen was prepped and draped in the usual sterile fashion. Timeout was performed. Midline incision was made using a #10 blade and dissection carried down through skin and subcutaneous tissue using electrocautery. Once the fascia was encountered, it was scored and grasped between 2 hemostats. The posterior fascia was incised and then the peritoneum was identified and grasped between 2 hemostats and tented upwards. This was incised with a Metzenbaum scissor and the abdomen entered. The remainder of the incision was opened in a cephalad and caudad direction over 2 gloved fingers. There was immediate release of bilious fluid. A Hcel self-retaining retractor was placed and the abdomen explored. There was a copious amount of bilious fluid in the upper abdomen. We started our examination with the stomach. Immediately, there was visualization of a 0.1-0.2 cm perforation in the anterior stomach at the pylorus. This was the source of pneumoperitoneum. The remainder of the bowel was examined. The small bowel and colon were intact. There was no other source of pneumoperitoneum identified. The falciform ligament was divided in order to get better access to the stomach. Decision was made to perform an omental patch. The tongue of omentum was brought up without tension to the area of the perforation. The gastric ulcer biopsy was obtained. Cultures of the bilious fluid were also obtained. The seromuscular 3-0 silk sutures were placed across the perforation and the perforation approximated. Please note that the borders of the ulcer were healthy. The tongue of omentum was brought over between the tails of the sutures and tied down over the area of perforation. The abdomen was then copiously irrigated with saline until the irrigant returned clear. All four quadrants were irrigated with greater than 3 liters of saline. A 19-Romansh Jaren drain was brought out through a stab incision in the right upper abdomen and the drain positioned over the area of the repair and under the right lobe of the liver. This was sutured into place using a 3-0 nylon drain stitch. The abdomen was then inspected for any foreign objects and there were none identified. The abdomen was checked for hemostasis, which was very carefully ensured. We then proceeded to close the fascia, which was done in the standard fashion using #1 looped PDS. The subcutaneous tissue was then irrigated and the skin loosely approximated using tessy. The skin was cleansed and a cover site dressing was placed over the incision. A drain sponge was placed around the drain and secured with Tegaderm. At the end of the case, all sponge, instrument, sharp counts were correct x 2. The patient remained in stable condition and intubated and was transferred to the PACU. JOB# [id number] NK/AMOL
[2019-06-03] MEDS: VANCOMYCIN/NS 1 GM/250 ML 1 GM/250 ML BAG IV SCH (10:00)
--- NOTE | 2019-06-03 10:44 | Progress Note ---
Assessment and Plan Pt remains intubated and sedated. S/p patch of perforated gastric ulcer yesterday afternoon. He remains NPO. Currently stable cardiac status. Resume home cardiac regimen once PO intake is resumed. He was noted to have 13 beat NSVT around 6PM yesterday evening. He has chronically declined LifeVest and/or AICD. Monitor electrolyses and cont to observe on telemetry. The patient has been seen in conjunction with Dr. Mason who agrees with the assessment and plan of care. - Patient Problems (1) Pneumoperitoneum Current Visit: Yes Status: Acute (2) Sepsis Current Visit: Yes Status: Acute Qualifiers: Sepsis type: sepsis due to unspecified organism Sepsis acute organ dysfunction status: unspecified Qualified Code(s): A41.9 - Sepsis, unspecified organism (3) Chronic HFrEF (heart failure with reduced ejection fraction) Current Visit: Yes Status: Chronic (4) Nonischemic cardiomyopathy Current Visit: Yes Status: Chronic (5) Sinus node dysfunction Current Visit: Yes Status: Chronic (6) NSVT (nonsustained ventricular tachycardia) Current Visit: Yes Status: Chronic (7) HTN (hypertension) Current Visit: Yes Status: Chronic Qualifiers: Hypertension type: essential hypertension Qualified Code(s): I10 - Essential (primary) hypertension (8) Pulmonary hypertension Current Visit: Yes Status: Chronic (9) PAD (peripheral artery disease) Current Visit: Yes Status: Chronic Subjective Date of service: 06/03/19 Principal diagnosis: perforated gastric ulcer Interval history: pt intubated, sedated. s/p surgery yesterday afternoon. in SR with 13 beat NSVT noted yesterday around 6PM. no family at bedside. Objective Last Vital Signs Temp 97.9 F 06/03/19 08:00 Pulse 92 H 06/03/19 09:11 Resp 13 06/03/19 09:11 BP 106/67 06/03/19 09:11 Pulse Ox 97 06/03/19 09:11 - Physical Examination General: Other (intubated, sedated) HEENT: Positive: EOMI, Normocephaly, Mucus Membranes Moist Neck: Positive: neck supple, trachea midline, Carotid Upstroke (full) Cardiac: Positive: Reg Rate and Rhythm, S1/S2 Lungs: Positive: Decreased Breath Sounds, Oxygen, Ventilated Respirations Neuro: Positive: Grossly Intact Abdomen: Positive: Soft, Tender Skin: Positive: Other (multiple wounds on both lower extremities with areas of ischemic ulceration.) Musculoskeletal: Normal Range of Motion Extremities: Present: +1 Edema (bilateral leg and feet) - Labs and Meds Cardiac Enzymes 06/03/19 Range/Units 04:41 AST 35 (5-40) units/L CBC 06/03/19 Range/Units 04:41 WBC 17.5 H (4.5-11.0) K/mm3 RBC 4.90 (3.65-5.03) M/mm3 Hgb 13.3 (11.8-15.2) gm/dl Hct 41.5 (35.5-45.6) % Plt Count 171 (140-440) K/mm3 Comprehensive Metabolic Panel 06/03/19 Range/Units 04:41 Sodium 137 D (137-145) mmol/L Potassium 4.6 (3.6-5.0) mmol/L Chloride 104.6 (98-107) mmol/L Carbon Dioxide 17 L (22-30) mmol/L BUN 42 H (9-20) mg/dL Creatinine 1.4 D (0.8-1.5) mg/dL Glucose 59 L (75-100) mg/dL Calcium 8.4 (8.4-10.2) mg/dL AST 35 (5-40) units/L ALT 36 (7-56) units/L Alkaline Phosphatase 153 H (35-129) units/L Total Protein 5.9 L (6.3-8.2) g/dL Albumin 1.7 L (3.9-5) g/dL - Imaging and Cardiology EKG: image reviewed - Telemetry EKG Rhythm: Sinus Rhythm - EKG Sinus rhythms and dysrhythmias: sinus rhythm Chamber hypertrophy or enlargement: left ventricular hypertro Repolarization changes or abnormalities: repolarization abn secondary to ventricular hypertrophy Myocardial infarction: septal [place] (old age or ind
--- NOTE | 2019-06-03 11:41 | Consultation ---
History of Present Illness - Reason for Consult Consult date: 06/03/19 - History of Present Illness 63 yo M PMHx NICM, HFrEF, NVST, b/l wounds, bedbound was admitted to the hospital after 3 days of abdominal pain. The history is obtained from the chart. Due to the abdominal pain, the patient's live-in sister called an ambulance and he was found to be covered in feces by EMT. It is noted that the patient has multiple bilateral LE wounds, some of which were covered with pus. General surgery took him to the OR and performed an ex-lap and he was found to have a perforated gastric ulcer, and an omental patch was placed. Afebrile since admission with an elevated white count, now at 17.5. All cultures are pending. Currently receiving meropenem and vancomycin. Imaging personally reviewed: CXR: faint bilateral interstitial edema. Past History Past Medical History: arrhythmia (NSVT, sinus pauses), heart failure (chronic HFrEF), hypertension, renal failure (JOHN), other (PAD with chronic LE wounds; Normal coronaries 04/25.) Past Surgical History: cataract removal, Other (surgery for renal stones.) Social history: lives with family, smoking, alcohol abuse Family history: diabetes. denies: CAD Medications and Allergies Allergies Allergy/AdvReac Type Severity Reaction Status Date / Time venom-honey bee Allergy Hives Verified 04/03/19 10:10 [bee venom (honey bee)] morphine AdvReac Unknown Verified 04/03/19 10:10 Penicillins AdvReac Nausea Verified 04/08/19 08:57 Home Medications Medication Instructions Recorded Confirmed Last Taken Type traMADoL [Ultram 50 MG tab] 50 mg PO Q6HR PRN #12 tablet 03/25/19 06/03/19 03/30/19 Rx ALBUTEROL Inhaler (OR & NICU) 2 puff IH QID PRN #2 inha 04/08/19 06/03/19 Unknown Rx [ProAir HFA Inhaler] ALBUTEROL NEB's [Proventil 0.083% 2.5 mg IH QIDRT PRN #30 nebu 04/08/19 06/03/19 Unknown Rx NEBS] Aspirin EC [Halfprin EC] 81 mg PO DAILY #30 04/08/19 06/03/19 03/30/19 Rx Azithromycin [Zithromax TAB] 2 tab PO QDAY #2 tablet 04/08/19 06/03/19 Unknown Rx Budesonide/Formoterol Fumarate 2 puff IH BID #1 unit 04/08/19 06/03/19 Unknown Rx [Symbicort 160-4.5 Mcg Inhaler] Furosemide [Lasix TAB] 40 mg PO DAILY@0600 #30 tablet 04/08/19 06/03/19 Unknown Rx Spironolactone [Aldactone] 50 mg PO QDAY #30 tablet 04/08/19 06/03/19 Unknown Rx carvediloL [Coreg] 3.125 mg PO BID #60 tablet 04/08/19 06/03/19 Unknown Rx cefUROXime [Ceftin] 2 tab PO BID #8 tablet 04/08/19 06/03/19 Unknown Rx Active Meds: Active Medications Albuterol (Proventil) 2.5 mg IH Q4H PRN PRN Reason: Shortness Of Breath Arformoterol Tartrate (Brovana Nebu) 15 mcg IH Q12HRT ROSE Last Admin: 06/03/19 07:42 Dose: 15 mcg Documented by: Budesonide (Pulmicort) 0.5 mg IH Q12HRT ROSE Last Admin: 06/03/19 07:42 Dose: 0.5 mg Documented by: Fentanyl (Sublimaze) 50 mcg IV Q10MIN PRN PRN Reason: ANALGESIA Last Admin: 06/02/19 15:22 Dose: 50 mcg Documented by: Hydrophilic Ointment (Vaseline Lip Therapy) 1 applic TP Q2HR PRN PRN Reason: Dry Lips Fentanyl Citrate (Fentanyl Drip Premix) 2,000 mcg in 100 mls @ 2.76 mls/hr IV TITR ROSE; Protocol Last Titration: 06/03/19 11:22 Dose: 1 mcg/kg/hr, 2.76 mls/hr Documented by: Propofol (Diprivan 10 Mg/Ml) 1,000 mg in 100 mls @ 1.656 mls/hr IV TITR ROSE; Protocol Last Titration: 06/03/19 09:50 Dose: 5 mcg/kg/min, 1.656 mls/hr Documented by: Pantoprazole Sodium 80 mg/ (Sodium Chloride) 100 mls @ 10 mls/hr IV DIRECT ROSE Last Admin: 06/03/19 03:55 Dose: 8 mg/hr, 10 mls/hr Documented by: Meropenem (Merrem/Ns 500 Mg/50 Ml) 500 mg in 50 mls @ 50 mls/hr IV Q6H ROSE Last Infusion: 06/03/19 05:30 Dose: Infused Documented by: Vancomycin HCl (Vancomycin/Ns 1 Gm/250 Ml) 1 gm in 250 mls @ 166.667 mls/hr IV Q24HR ROSE Dextrose/Sodium Chloride (D5ns) 1,000 mls @ 100 mls/hr IV DIRECT ROSE Last Admin: 06/03/19 09:07 Dose: 100 mls/hr Documented by: Multi-Ingred Cream/Lotion/Oil/Oint (Artificial Tears Ophth Oint) 1 applic OU Q4HR PRN PRN Reason: Dry Eye(s) Review of Systems ROS unobtainable: due to endotracheal tube Physical Examination - Physical Exam Narrative exam: General Intubated, sedated Eyes - PERRLA, EOM intact ENT - Moist mucous membranes, no lymphadenopathy Neck - No noticeable or palpable swelling, redness or rash around throat or on face Lymph Nodes - No lymphadenopathy Cardiovascular - RRR no m/r/g, no JVD, no carotid bruits Lungs - Clear to auscultation, no use of accessory muscles, no crackles or wheezes. Skin - Bilateral LE wounds, both feet under gauze. Noted pictures in chart. Abdomen - Normal bowel sounds, abdomen soft and nontender Extremities - No edema, cyanosis or clubbing Musculoskeletal - Sedated Neurological Sedated - Constitutional Vitals: Vital Signs Temp Pulse Resp BP Pulse Ox 97.9 F 92 H 13 106/67 97 06/03/19 08:00 06/03/19 09:11 06/03/19 09:11 06/03/19 09:11 06/03/19 09:11 Temperature -Last 24 Hours Temperature 97.9 F Temperature 98.7 F Temperature 98.7 F Temperature 96.5 F Temperature 97.5 F Temperature 97.9 F Temperature 97.8 F Results - Labs CBC & Chem 7: 06/03/19 04:41 06/03/19 04:41 Labs: Abnormal lab results 06/02/19 06/02/19 06/02/19 Range/Units 15:33 15:53 16:40 WBC (4.5-11.0) K/mm3 MCH (28-32) pg RDW (13.2-15.2) % Seg Neuts % (Manual) (40.0-70.0) % Lymphocytes % (Manual) (13.4-35.0) % Nucleated RBC % (0.0-0.9) % Seg Neutrophils # Man (1.8-7.7) K/mm3 Lymphocytes # (Manual) (1.2-5.4) K/mm3 POC ABG pH 7.229 L 7.259 L (7.35-7.45) POC ABG pCO2 49.5 H (35-45) POC ABG pO2 221 H (80-105) Carbon Dioxide (22-30) mmol/L BUN (9-20) mg/dL Glucose (75-100) mg/dL POC Glucose 66 L (70-105) Total Bilirubin (0.1-1.2) mg/dL Alkaline Phosphatase (35-129) units/L Total Protein (6.3-8.2) g/dL Albumin (3.9-5) g/dL 06/02/19 06/03/19 06/03/19 Range/Units 17:10 04:06 04:41 WBC 17.5 H (4.5-11.0) K/mm3 MCH 27 L (28-32) pg RDW 25.0 H (13.2-15.2) % Seg Neuts % (Manual) 96.0 H (40.0-70.0) % Lymphocytes % (Manual) 0 L (13.4-35.0) % Nucleated RBC % 1.0 H (0.0-0.9) % Seg Neutrophils # Man 16.8 H (1.8-7.7) K/mm3 Lymphocytes # (Manual) 0.0 L (1.2-5.4) K/mm3 POC ABG pH (7.35-7.45) POC ABG pCO2 33.9 L (35-45) POC ABG pO2 146 H (80-105) Carbon Dioxide (22-30) mmol/L BUN (9-20) mg/dL Glucose (75-100) mg/dL POC Glucose 151 H (70-105) Total Bilirubin (0.1-1.2) mg/dL Alkaline Phosphatase (35-129) units/L Total Protein (6.3-8.2) g/dL Albumin (3.9-5) g/dL 06/03/19 Range/Units 04:41 WBC (4.5-11.0) K/mm3 MCH (28-32) pg RDW (13.2-15.2) % Seg Neuts % (Manual) (40.0-70.0) % Lymphocytes % (Manual) (13.4-35.0) % Nucleated RBC % (0.0-0.9) % Seg Neutrophils # Man (1.8-7.7) K/mm3 Lymphocytes # (Manual) (1.2-5.4) K/mm3 POC ABG pH (7.35-7.45) POC ABG pCO2 (35-45) POC ABG pO2 (80-105) Carbon Dioxide 17 L (22-30) mmol/L BUN 42 H (9-20) mg/dL Glucose 59 L (75-100) mg/dL POC Glucose (70-105) Total Bilirubin 7.00 H (0.1-1.2) mg/dL Alkaline Phosphatase 153 H (35-129) units/L Total Protein 5.9 L (6.3-8.2) g/dL Albumin 1.7 L (3.9-5) g/dL Assessment and Plan Cultures Blood culture 06/02/19 no growth to date Urine culture 06/02/19 no growth to date Surgical culture 06/02/19 no growth to date Assessment: 63 yo M significant cardiac PMHx, chronic bilateral wounds admitted with small perforated gastric ulcer. 1. Acute sepsis -present with tachycardia, leukocytosis. Likely secondary to perforated gastric ulcer vs infected chronic wounds 2. Infected bilateral infected wounds - his wounds are markedly worse than previous, even before considering how purulent they are. Comparing to the recent pictures from his March admission, there is considerable necrosis and purulence. I have severe concern for the viability of these limbs. Surgery is already on board, recommend they evaluate the legs for debridment vs amputation. Would get culture of pus. Continue antibiotics pending results. Recs: - continue meropenem 500mg q6h - continue vancomycin with pharmacy dosing, Goal trough 15-20. - obtain cultures of leg wounds - follow up surgical recommendations of leg wounds. Dr. Oakes was consulted for possible amputation. [facility] M: [phone] O: [phone] F: [phone]
--- NOTE | 2019-06-03 12:52 | Progress Note ---
Assessment and Plan 63 yo M s/p exploratory laparotomy, omental patch of perforated gastric ulcer POD 1 1. sepsis 2. perforated gastric ulcer 3. severe malnutrition 4. b/l pleural effusions 5. bedbound 6. infected b/l LE wounds with likely chronic limb ischemia 7. cardiomyopathy 8. CHF Plan: 1. Neuro - fent and propofol gtt for pain control and sedation respectively 2. CV - BP and HR improving. [place] removed. Cardiology on board 3. Resp - on vent. Management per ICU team, wean as rudolph 4. GI - strict NPO, gentle IVF. PICC c/s and start TPN. TANESHA drain to bulb suction - monitor output. PPI gtt - will switch to Protonix BID tomorrow. NGT to LIWS - DO NOT REMOVE, MANIPULATE, FLUSH, OR USE FOR MEDS. Will need UGI in 48 hours and if repair is intact, will start TF. 5. Endo - Blood glucose monitoring per protocol 6. ID - follow up intraop cultures. ID consulted. continue abx per ID. Multiple infected wounds of LE - continue wound care per neuro ophthalmologist 7. IVETTE garcia for strict I/Os. 8. Musc - DVT ppx. Offloading. Will order arterial duplex of b/l LE and consult Dr. Oakes for evaluation of LE for possible amputation. Condition: Guarded Thank you, please call with questions. Subjective Date of service: 06/03/19 Narrative: Pt seen and examined. Remains on the ventilator and on sedation. NO f/c. Objective Vital Signs - 12hr 06/03/19 06/03/19 06/03/19 00:51 01:00 01:11 Temperature Pulse Rate 118 H 114 H 114 H Pulse Rate [ Anterior Bilateral Throughout] Pulse Rate [ From Monitor] Respiratory 19 12 20 Rate Respiratory Rate [Anterior Bilateral Throughout] Blood Pressure 123/81 126/85 126/85 O2 Sat by Pulse 98 99 98 Oximetry 06/03/19 06/03/19 06/03/19 01:21 01:30 01:41 Temperature Pulse Rate 115 H 115 H 114 H Pulse Rate [ Anterior Bilateral Throughout] Pulse Rate [ From Monitor] Respiratory 12 12 11 L Rate Respiratory Rate [Anterior Bilateral Throughout] Blood Pressure 124/84 127/85 127/85 O2 Sat by Pulse 98 98 98 Oximetry 06/03/19 06/03/19 06/03/19 01:51 02:00 02:11 Temperature Pulse Rate 116 H 114 H 112 H Pulse Rate [ Anterior Bilateral Throughout] Pulse Rate [ From Monitor] Respiratory 17 13 13 Rate Respiratory Rate [Anterior Bilateral Throughout] Blood Pressure 127/85 125/86 127/85 O2 Sat by Pulse 98 98 98 Oximetry 06/03/19 06/03/19 06/03/19 02:21 02:30 02:41 Temperature Pulse Rate 114 H 115 H 112 H Pulse Rate [ Anterior Bilateral Throughout] Pulse Rate [ From Monitor] Respiratory 17 19 13 Rate Respiratory Rate [Anterior Bilateral Throughout] Blood Pressure 122/82 125/86 125/86 O2 Sat by Pulse 98 98 98 Oximetry 06/03/19 06/03/19 06/03/19 02:51 03:00 03:11 Temperature Pulse Rate 109 H 108 H 104 H Pulse Rate [ Anterior Bilateral Throughout] Pulse Rate [ From Monitor] Respiratory 15 12 10 L Rate Respiratory Rate [Anterior Bilateral Throughout] Blood Pressure 130/90 118/79 118/79 O2 Sat by Pulse 99 98 98 Oximetry 06/03/19 06/03/19 06/03/19 03:18 03:21 03:24 Temperature 98.7 F Pulse Rate 103 H 101 H Pulse Rate [ Anterior Bilateral Throughout] Pulse Rate [ From Monitor] Respiratory 11 L Rate Respiratory Rate [Anterior Bilateral Throughout] Blood Pressure 116/75 116/75 O2 Sat by Pulse 98 98 Oximetry 06/03/19 06/03/19 06/03/19 03:30 03:36 03:41 Temperature Pulse Rate 104 H 103 H Pulse Rate [ Anterior Bilateral Throughout] Pulse Rate [ 103 H From Monitor] Respiratory 11 L 11 L 17 Rate Respiratory Rate [Anterior Bilateral Throughout] Blood Pressure 118/76 118/76 O2 Sat by Pulse 97 98 97 Oximetry 06/03/19 06/03/19 06/03/19 03:51 04:00 04:11 Temperature Pulse Rate 102 H 108 H 103 H Pulse Rate [ Anterior Bilateral Throughout] Pulse Rate [ From Monitor] Respiratory 10 L 17 20 Rate Respiratory Rate [Anterior Bilateral Throughout] Blood Pressure 115/74 111/80 111/80 O2 Sat by Pulse 99 98 96 Oximetry 06/03/19 06/03/19 06/03/19 04:21 04:30 04:41 Temperature Pulse Rate 103 H 101 H 101 H Pulse Rate [ Anterior Bilateral Throughout] Pulse Rate [ From Monitor] Respiratory 15 15 12 Rate Respiratory Rate [Anterior Bilateral Throughout] Blood Pressure 111/74 113/75 115/74 O2 Sat by Pulse 96 96 97 Oximetry 06/03/19 06/03/19 06/03/19 04:51 05:00 05:11 Temperature Pulse Rate 100 H 99 H 99 H Pulse Rate [ Anterior Bilateral Throughout] Pulse Rate [ From Monitor] Respiratory 12 14 13 Rate Respiratory Rate [Anterior Bilateral Throughout] Blood Pressure 116/76 114/78 113/75 O2 Sat by Pulse 97 97 97 Oximetry 06/03/19 06/03/19 06/03/19 05:21 05:30 05:41 Temperature Pulse Rate 100 H 103 H 102 H Pulse Rate [ Anterior Bilateral Throughout] Pulse Rate [ From Monitor] Respiratory 10 L 15 16 Rate Respiratory Rate [Anterior Bilateral Throughout] Blood Pressure 119/78 125/84 125/84 O2 Sat by Pulse 97 97 97 Oximetry 06/03/19 06/03/19 06/03/19 05:51 06:00 06:11 Temperature Pulse Rate 99 H 100 H 102 H Pulse Rate [ Anterior Bilateral Throughout] Pulse Rate [ From Monitor] Respiratory 13 11 L 10 L Rate Respiratory Rate [Anterior Bilateral Throughout] Blood Pressure 118/80 117/75 117/75 O2 Sat by Pulse 97 97 97 Oximetry 06/03/19 06/03/19 06/03/19 06:21 06:30 06:41 Temperature Pulse Rate 96 H 99 H 102 H Pulse Rate [ Anterior Bilateral Throughout] Pulse Rate [ From Monitor] Respiratory 11 L 12 12 Rate Respiratory Rate [Anterior Bilateral Throughout] Blood Pressure 123/79 121/79 121/79 O2 Sat by Pulse 97 97 98 Oximetry 06/03/19 06/03/19 06/03/19 06:51 07:00 07:11 Temperature Pulse Rate 97 H 96 H 98 H Pulse Rate [ Anterior Bilateral Throughout] Pulse Rate [ 92 H From Monitor] Respiratory 19 10 L 20 Rate Respiratory Rate [Anterior Bilateral Throughout] Blood Pressure 124/82 117/76 117/76 O2 Sat by Pulse 97 97 97 Oximetry 06/03/19 06/03/19 06/03/19 07:21 07:30 07:33 Temperature Pulse Rate 94 H 93 H 94 H Pulse Rate [ Anterior Bilateral Throughout] Pulse Rate [ From Monitor] Respiratory 13 16 Rate Respiratory Rate [Anterior Bilateral Throughout] Blood Pressure 111/73 108/72 108/72 O2 Sat by Pulse 97 97 97 Oximetry 06/03/19 06/03/19 06/03/19 07:41 07:43 07:51 Temperature Pulse Rate 94 H 92 H Pulse Rate [ 93 H Anterior Bilateral Throughout] Pulse Rate [ From Monitor] Respiratory 16 18 Rate Respiratory 20 Rate [Anterior Bilateral Throughout] Blood Pressure 108/72 108/68 O2 Sat by Pulse 97 97 Oximetry 06/03/19 06/03/19 06/03/19 08:00 08:11 08:21 Temperature 97.9 F Pulse Rate 91 H 92 H 91 H Pulse Rate [ Anterior Bilateral Throughout] Pulse Rate [ From Monitor] Respiratory 20 18 15 Rate Respiratory Rate [Anterior Bilateral Throughout] Blood Pressure 109/67 109/67 103/67 O2 Sat by Pulse 97 97 97 Oximetry 06/03/19 06/03/19 06/03/19 08:30 08:41 08:51 Temperature Pulse Rate 91 H 90 89 Pulse Rate [ Anterior Bilateral Throughout] Pulse Rate [ From Monitor] Respiratory 14 12 15 Rate Respiratory Rate [Anterior Bilateral Throughout] Blood Pressure 110/69 110/69 107/67 O2 Sat by Pulse 97 97 97 Oximetry 06/03/19 06/03/19 09:00 09:11 Temperature Pulse Rate 91 H 92 H Pulse Rate [ Anterior Bilateral Throughout] Pulse Rate [ From Monitor] Respiratory 20 13 Rate Respiratory Rate [Anterior Bilateral Throughout] Blood Pressure 106/67 106/67 O2 Sat by Pulse 97 97 Oximetry - General physical appearance Narrative Exam: Gen: Intubated, on vent. Arousable to tactile stimulus. NAD ENT: ETT and NGT in place. NGT with dark bilious drainage with blood tinge. CV: S1, S2+. Tachy Resp; on vent Abd: soft, NT, ND. Midline dressing c/d/i. TANESHA drain serous Ext: B/L LE wounds - necrotic with foul odor. Dry gangrene of multiple toes. Contracted. Erythema of feet. Multiple Upper extremity wounds, dry with eschar. : garcia with ivonne urine I/O Uo: 380cc/24h TANESHA output: 390cc/24h - Labs 06/03/19 04:41 06/03/19 04:41 Diabetes panel 06/03/19 Range/Units 04:41 Sodium 137 D (137-145) mmol/L Potassium 4.6 (3.6-5.0) mmol/L Chloride 104.6 (98-107) mmol/L Carbon Dioxide 17 L (22-30) mmol/L BUN 42 H (9-20) mg/dL Creatinine 1.4 D (0.8-1.5) mg/dL Glucose 59 L (75-100) mg/dL Calcium 8.4 (8.4-10.2) mg/dL AST 35 (5-40) units/L ALT 36 (7-56) units/L Alkaline Phosphatase 153 H (35-129) units/L Total Protein 5.9 L (6.3-8.2) g/dL Albumin 1.7 L (3.9-5) g/dL Calcium panel 06/03/19 Range/Units 04:41 Calcium 8.4 (8.4-10.2) mg/dL Albumin 1.7 L (3.9-5) g/dL Pituitary panel 06/03/19 Range/Units 04:41 Sodium 137 D (137-145) mmol/L Potassium 4.6 (3.6-5.0) mmol/L Chloride 104.6 (98-107) mmol/L Carbon Dioxide 17 L (22-30) mmol/L BUN 42 H (9-20) mg/dL Creatinine 1.4 D (0.8-1.5) mg/dL Glucose 59 L (75-100) mg/dL Calcium 8.4 (8.4-10.2) mg/dL Adrenal panel 06/03/19 Range/Units 04:41 Sodium 137 D (137-145) mmol/L Potassium 4.6 (3.6-5.0) mmol/L Chloride 104.6 (98-107) mmol/L Carbon Dioxide 17 L (22-30) mmol/L BUN 42 H (9-20) mg/dL Creatinine 1.4 D (0.8-1.5) mg/dL Glucose 59 L (75-100) mg/dL Calcium 8.4 (8.4-10.2) mg/dL Total Bilirubin 7.00 H (0.1-1.2) mg/dL AST 35 (5-40) units/L ALT 36 (7-56) units/L Alkaline Phosphatase 153 H (35-129) units/L Total Protein 5.9 L (6.3-8.2) g/dL Albumin 1.7 L (3.9-5) g/dL
[2019-06-03] MEDS: FUROSEMIDE 40 MG/4 ML INJ IV SCH (13:00)
--- NOTE | 2019-06-03 14:53 | Vascular Lab Report ---
DUPLEX DOPPLER LOWER EXTREMITY ARTERIAL, BILATERAL INDICATION: Lower extremity wounds, poor circulation. Peripheral vascular disease. TECHNIQUE: Arterial duplex examination of both lower extremities performed using B-mode, color flow and spectral Doppler assessment. FINDINGS: RIGHT: Common Femoral Artery: PSV 71 cm/sec. Triphasic waveform. Proximal SFA: PSV 81 cm/sec. Triphasic waveform. Mid SFA: PSV 93 cm/sec. Triphasic waveform. Distal SFA: PSV 91 cm/sec. Triphasic waveform. Popliteal artery: PSV 68 cm/sec. Triphasic waveform. Posterior tibial artery: PSV 33 cm/sec. Triphasic waveform. Anterior tibial artery: PSV 40 cm/sec. Triphasic waveform. Dorsalis Pedis Artery: PSV 47 cm/sec. Triphasic waveform. LEFT: Common Femoral Artery: PSV 73 cm/sec. Triphasic waveform. Proximal SFA: PSV 85 cm/sec. Triphasic waveform. Mid SFA: PSV 88 cm/sec. Triphasic waveform. Distal SFA: PSV 96 cm/sec. Triphasic waveform. Popliteal artery: PSV 115 cm/sec. Triphasic waveform. Posterior tibial artery: PSV 86 cm/sec. Biphasic waveform. Anterior tibial artery: PSV 35 cm/s. Biphasic waveform. Dorsalis Pedis Artery: Could not be evaluated secondary to sores/bandages. IMPRESSION: No significant peripheral arterial disease is identified in the visualized lower extremities. Please note the left dorsalis pedis artery could not be evaluated, see above. Doppler Waveform: * Triphasic is normal. * Biphasic is abnormal if clear transition from triphasic signal along vascular tree. * Monophasic is abnormal. Signer Name: Jackson Ventura Jr, MD Signed: 06/03/2019 2:49 PM Workstation Name: [id number]
[2019-06-03] MEDS ORDERED: AMINO ACIDS 4.25 %/DEXTROSE 5% 2,000 ML IV SCH (21:00)
[2019-06-03] MEDS: PROPOFOL 1,000 MG/100 ML BOTTLE IV SCH (21:40)
[2019-06-03] MEDS: fentaNYL DRIP Premix 2,000 MCG/100 ML BAG IV SCH (23:16)
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
[2019-06-04] MEDS: PANTOPRAZOLE 80 MG in SODIUM CHLORIDE 0.9% 100 ML IV SCH (02:46)
--- NOTE | 2019-06-04 02:49 | XRay Report ---
CHEST 1 VIEW, 06/04/2019 2:24 AM CLINICAL INFORMATION/INDICATION: Respiratory failure COMPARISON: Chest radiograph, 06/03/2019 at 2:28 AM FINDINGS: SUPPORT DEVICES: The endotracheal tube and right-sided central line remain in stable position. The es ophagogastric tube has been advanced, now with distal tip and sidehole overlying the stomach. HEART: The cardiac silhouette is normal in size. LUNGS/PLEURA: Faint bilateral interstitial edema is similar to the previous study. ADDITIONAL FINDINGS: No additional acute findings. IMPRESSION: 1. Interval advancement of endotracheal tube with tip overlying the stomach. Signer Name: Chelsie Ty MD Signed: 06/04/2019 2:44 AM Workstation Name: [employer]
[2019-06-04] MEDS: MEROPENEM/NS 500 MG/50 ML 500 MG/50 ML BAG IV SCH ×4 (04:22→22:30)
[2019-06-04 05:18] LABS: Hematocrit 42.5 % (35.5-45.6); Hemoglobin 13.5 gm/dl (11.8-15.2); Mean Corpuscular HGB Conc 32 % (32-34); Mean Corpuscular Volume 85 fl (84-94); Platelet Count 184 K/mm3 (140-440); Red Blood Count 5.01 M/mm3 (3.65-5.03)
[2019-06-04 05:27] LABS: Red Cell Distribution Width 24.5 % (13.2-15.2)
[2019-06-04] MEDS: FUROSEMIDE 40 MG/4 ML INJ IV SCH (05:27)
[2019-06-04 05:33] LABS: Alanine Aminotransferase 29 units/L (7-56); Albumin 1.7 g/dL (3.9-5); BUN/Creatinine Ratio 33; Blood Urea Nitrogen 39 mg/dL (9-20); Hemolysis Index 3
[2019-06-04 06:04] LABS: Total Cells Counted 100
[2019-06-04 06:05] LABS: Anisocytosis 1+; Basophils % (Manual) 0 % (0.0-1.8); Hypochromasia Few; Target Cells 1+
[2019-06-04 06:06] LABS: Platelet Estimate Consistent w Auto
[2019-06-04 06:11] LABS: Calcium 8.3 mg/dL (8.4-10.2)
[2019-06-04] MEDS ORDERED: MAGNESIUM SULFATE 4 GM/100 ML BAG IV ONE (07:00)
--- NOTE | 2019-06-04 07:29 | Progress Note ---
Assessment and Plan Perforated Bowel, possibly due to a ruptured gastric or duodenal ulcer. - - General surgery consulted for perforated bowel - s/p exploratory laparotomy, omental patch of perforated gastric ulcer POD 1 - cont empiric abx,cautious IV fluid, may need to start on TPN - NPO now, cont PPI ggt Sepsis with bilateral lower extremity cellulitis/infected ulcer and perforated bowel - Continue empiric antibiotics, obtain blood cultures, wound culture - Wound care consult placed, consult ID bilateral lower extremity cellulitis/infected ulcer - from PVD - cont abx, order arterial duplex of b/l LE and consult Dr. Oakes for evaluation of LE for possible amputation - per Dr Sims Moderate b/l pleural effusion CHFrEF 10-15% - Cardiology consulted - monitor ins/os, daily lasix iv to prevent fluid overload Severe protein calorie malnutrition - nutrition consult, may need TPN CKD stage III, monitor renal function, avoid nephrotoxin - renal function stable Elevated bilirubin, trend LFT Severe metabolic acidosis likely due to perforated bowel - bicarbonate as needed Acute respiratory failure following surgery - CC following, cont nebs, wean off vent as tolerated - Provide GI and DVT prophylaxis CT abdomen: 1. Pneumoperitoneum, possibly due to a ruptured gastric or duodenal ulcer. 2. Bilateral pleural effusions, right greater than left, with generalized edema. The high probability of a clinically significant, sudden or life threatening deterioration of the [CVS, GI] system(s) required my full and direct attention, intervention and personal management. The aggregate critical care time was [] minutes. This time is in addition to time spent performing reported procedures but includes the following: [X] Data Review and interpretation [X] Patient assessment and monitoring of vital signs [X] Documentation [X] Medication orders and management Brief History: Patient is a 63 yo man with a history of NICMP, chronic HFrEF 10-15%, NSVT declines LifeVest/AICD, CKD 3, HTN and mod to severe TR, b/l LE wounds, bedbound who presents to [facility] ED with c/o abdominal pain for 3 days. He had multiple bilateral lower extremity wound and stage I to 2 lower extremity ulcer covered with pus. CT abdomen and pelvis suggestive of pneumoperitoneum. General surgery has been consulted and patient was taken for OR for exploratory laparotomy by general surgeon. He also received empiric antibiotics, blood culture wound culture has been ordered. Subjective Date of service: 06/03/19 Principal diagnosis: perforated gastric ulcer Interval history: Patient seen and examined Intubated, getting wound cleaning at bedside discussed with Dr Sims at bedside. RN at bedside Objective - Exam Narrative Exam: GENERAL: Intubated and sedated. Lethargic. cachectic. Poor hygiene. HEENT: Normocephalic. Atraumatic. bruising around bridge of nose. +scleral icterus. . Patient has dry mucous membranes with poor dental hygiene. NECK: Supple. Trachea midline. CHEST/LUNGS: BS auscultated bilaterally, breathing nonlabored. No wheezes , on vent HEART/CARDIOVASCULAR: Tachycardic. S1 and S2 positive. ABDOMEN: Abdomen is soft, surgical dressing on place. Patient has hypoactive bowel sounds. SKIN: There is no rash. Multiple wounds along legs and arms. Bruising of hands and knees NEURO: sedated MUSCULOSKELETAL: No joint effusion or tenderness. EXTRIMITY: LE contracted. Chronic limb ischemia of b/l feet with necrotic wounds. PSYCH: Cooperative. - Constitutional Vitals: Vital Signs - 12hr 06/03/19 06/03/19 06/03/19 19:30 19:41 19:51 Temperature Pulse Rate 99 H 98 H 97 H Pulse Rate [ Anterior Bilateral Throughout] Pulse Rate [ From Monitor] Respiratory 21 30 H 38 H Rate Respiratory Rate [Anterior Bilateral Throughout] Blood Pressure 128/85 128/85 126/83 O2 Sat by Pulse 98 98 97 Oximetry 06/03/19 06/03/19 06/03/19 20:00 20:11 20:21 Temperature 97.5 F L Pulse Rate 96 H 94 H 94 H Pulse Rate [ Anterior Bilateral Throughout] Pulse Rate [ 96 H From Monitor] Respiratory 22 20 18 Rate Respiratory Rate [Anterior Bilateral Throughout] Blood Pressure 122/77 122/77 121/78 O2 Sat by Pulse 99 98 98 Oximetry 06/03/19 06/03/19 06/03/19 20:30 20:41 20:48 Temperature Pulse Rate 94 H 95 H 97 H Pulse Rate [ Anterior Bilateral Throughout] Pulse Rate [ From Monitor] Respiratory 20 19 Rate Respiratory Rate [Anterior Bilateral Throughout] Blood Pressure 122/79 122/79 119/79 O2 Sat by Pulse 94 98 98 Oximetry 06/03/19 06/03/19 06/03/19 20:51 21:00 21:11 Temperature Pulse Rate 96 H 96 H 104 H Pulse Rate [ 98 H Anterior Bilateral Throughout] Pulse Rate [ From Monitor] Respiratory 21 20 20 Rate Respiratory 20 Rate [Anterior Bilateral Throughout] Blood Pressure 119/79 121/79 121/79 O2 Sat by Pulse 98 98 97 Oximetry 06/03/19 06/03/19 06/03/19 21:21 21:30 21:41 Temperature Pulse Rate 101 H 99 H 96 H Pulse Rate [ Anterior Bilateral Throughout] Pulse Rate [ From Monitor] Respiratory 20 20 20 Rate Respiratory Rate [Anterior Bilateral Throughout] Blood Pressure 132/88 124/81 132/88 O2 Sat by Pulse 98 98 Oximetry 06/03/19 06/03/19 06/03/19 21:51 22:00 22:11 Temperature Pulse Rate 94 H 94 H 95 H Pulse Rate [ Anterior Bilateral Throughout] Pulse Rate [ From Monitor] Respiratory 18 19 20 Rate Respiratory Rate [Anterior Bilateral Throughout] Blood Pressure 120/79 118/78 118/78 O2 Sat by Pulse 98 95 98 Oximetry 06/03/19 06/03/19 06/03/19 22:21 22:30 22:41 Temperature Pulse Rate 94 H 94 H 94 H Pulse Rate [ Anterior Bilateral Throughout] Pulse Rate [ From Monitor] Respiratory 20 21 20 Rate Respiratory Rate [Anterior Bilateral Throughout] Blood Pressure 124/79 115/75 124/79 O2 Sat by Pulse 98 93 98 Oximetry 06/03/19 06/03/19 06/03/19 22:46 22:51 23:00 Temperature Pulse Rate 94 H 95 H 95 H Pulse Rate [ Anterior Bilateral Throughout] Pulse Rate [ From Monitor] Respiratory 19 20 20 Rate Respiratory Rate [Anterior Bilateral Throughout] Blood Pressure 116/75 116/75 119/77 O2 Sat by Pulse 98 98 Oximetry 06/03/19 06/03/19 06/03/19 23:07 23:11 23:21 Temperature Pulse Rate 96 H 96 H 96 H Pulse Rate [ Anterior Bilateral Throughout] Pulse Rate [ From Monitor] Respiratory 20 18 20 Rate Respiratory Rate [Anterior Bilateral Throughout] Blood Pressure 119/77 116/75 118/75 O2 Sat by Pulse 98 98 98 Oximetry 06/03/19 06/03/19 06/03/19 23:30 23:41 23:51 Temperature Pulse Rate 97 H 97 H 98 H Pulse Rate [ Anterior Bilateral Throughout] Pulse Rate [ From Monitor] Respiratory 18 20 20 Rate Respiratory Rate [Anterior Bilateral Throughout] Blood Pressure 116/76 118/75 119/79 O2 Sat by Pulse 96 98 98 Oximetry 06/04/19 06/04/19 06/04/19 00:00 00:11 00:21 Temperature 97.5 F L Pulse Rate 96 H 96 H 96 H Pulse Rate [ Anterior Bilateral Throughout] Pulse Rate [ 96 H From Monitor] Respiratory 20 20 20 Rate Respiratory Rate [Anterior Bilateral Throughout] Blood Pressure 113/72 119/79 115/74 O2 Sat by Pulse 98 98 98 Oximetry 06/04/19 06/04/19 06/04/19 00:30 00:41 00:51 Temperature Pulse Rate 96 H 97 H 96 H Pulse Rate [ Anterior Bilateral Throughout] Pulse Rate [ From Monitor] Respiratory 20 21 20 Rate Respiratory Rate [Anterior Bilateral Throughout] Blood Pressure 111/74 115/74 113/73 O2 Sat by Pulse 98 98 98 Oximetry 06/04/19 06/04/19 06/04/19 01:00 01:10 01:21 Temperature Pulse Rate 96 H 94 H 97 H Pulse Rate [ Anterior Bilateral Throughout] Pulse Rate [ From Monitor] Respiratory 20 20 20 Rate Respiratory Rate [Anterior Bilateral Throughout] Blood Pressure 112/72 112/72 115/71 O2 Sat by Pulse 98 98 Oximetry 06/04/19 06/04/19 06/04/19 01:30 01:41 01:51 Temperature Pulse Rate 96 H 97 H 97 H Pulse Rate [ Anterior Bilateral Throughout] Pulse Rate [ From Monitor] Respiratory 20 20 20 Rate Respiratory Rate [Anterior Bilateral Throughout] Blood Pressure 114/72 115/71 110/72 O2 Sat by Pulse 98 98 Oximetry 06/04/19 06/04/19 06/04/19 02:00 02:11 02:21 Temperature Pulse Rate 99 H 98 H 97 H Pulse Rate [ Anterior Bilateral Throughout] Pulse Rate [ From Monitor] Respiratory 20 20 20 Rate Respiratory Rate [Anterior Bilateral Throughout] Blood Pressure 118/75 118/75 108/76 O2 Sat by Pulse 98 98 97 Oximetry 06/04/19 06/04/19 06/04/19 02:30 02:41 02:51 Temperature Pulse Rate 96 H 96 H 96 H Pulse Rate [ Anterior Bilateral Throughout] Pulse Rate [ From Monitor] Respiratory 20 20 20 Rate Respiratory Rate [Anterior Bilateral Throughout] Blood Pressure 108/71 108/71 105/70 O2 Sat by Pulse 97 97 Oximetry 06/04/19 06/04/19 06/04/19 03:00 03:11 03:21 Temperature Pulse Rate 96 H 95 H 95 H Pulse Rate [ Anterior Bilateral Throughout] Pulse Rate [ From Monitor] Respiratory 20 20 15 Rate Respiratory Rate [Anterior Bilateral Throughout] Blood Pressure 108/70 108/70 103/70 O2 Sat by Pulse 97 98 Oximetry 06/04/19 06/04/19 06/04/19 03:30 03:41 03:51 Temperature Pulse Rate 97 H 99 H 94 H Pulse Rate [ Anterior Bilateral Throughout] Pulse Rate [ From Monitor] Respiratory 19 19 20 Rate Respiratory Rate [Anterior Bilateral Throughout] Blood Pressure 110/72 110/72 113/76 O2 Sat by Pulse 98 Oximetry 06/04/19 06/04/19 06/04/19 04:00 04:11 04:21 Temperature 97.5 F L Pulse Rate 94 H 93 H 94 H Pulse Rate [ Anterior Bilateral Throughout] Pulse Rate [ 96 H From Monitor] Respiratory 18 25 H 20 Rate Respiratory Rate [Anterior Bilateral Throughout] Blood Pressure 113/74 113/74 122/76 O2 Sat by Pulse 97 Oximetry 06/04/19 06/04/19 06/04/19 04:30 04:38 04:41 Temperature Pulse Rate 94 H 94 H 94 H Pulse Rate [ Anterior Bilateral Throughout] Pulse Rate [ From Monitor] Respiratory 19 19 Rate Respiratory Rate [Anterior Bilateral Throughout] Blood Pressure 117/74 122/76 117/74 O2 Sat by Pulse 99 Oximetry 06/04/19 06/04/19 06/04/19 04:51 05:00 05:11 Temperature Pulse Rate 95 H 93 H 95 H Pulse Rate [ Anterior Bilateral Throughout] Pulse Rate [ From Monitor] Respiratory 20 21 20 Rate Respiratory Rate [Anterior Bilateral Throughout] Blood Pressure 114/74 113/77 113/77 O2 Sat by Pulse 96 96 Oximetry 06/04/19 06/04/19 06/04/19 05:21 05:30 05:41 Temperature Pulse Rate 94 H 94 H 92 H Pulse Rate [ Anterior Bilateral Throughout] Pulse Rate [ From Monitor] Respiratory 20 20 20 Rate Respiratory Rate [Anterior Bilateral Throughout] Blood Pressure 113/75 118/74 118/74 O2 Sat by Pulse 96 97 Oximetry 06/04/19 06/04/19 06/04/19 05:51 06:00 06:11 Temperature Pulse Rate 95 H 96 H 96 H Pulse Rate [ Anterior Bilateral Throughout] Pulse Rate [ From Monitor] Respiratory 21 20 18 Rate Respiratory Rate [Anterior Bilateral Throughout] Blood Pressure 113/75 124/78 124/78 O2 Sat by Pulse 98 97 Oximetry 06/04/19 06/04/19 06/04/19 06:21 06:30 06:41 Temperature Pulse Rate 92 H 96 H 94 H Pulse Rate [ Anterior Bilateral Throughout] Pulse Rate [ From Monitor] Respiratory 20 20 20 Rate Respiratory Rate [Anterior Bilateral Throughout] Blood Pressure 117/78 117/77 117/77 O2 Sat by Pulse 98 97 Oximetry 06/04/19 06/04/19 06:51 07:00 Temperature Pulse Rate 94 H 95 H Pulse Rate [ Anterior Bilateral Throughout] Pulse Rate [ From Monitor] Respiratory 20 20 Rate Respiratory Rate [Anterior Bilateral Throughout] Blood Pressure 106/74 105/72 O2 Sat by Pulse 97 Oximetry - Labs CBC & Chem 7: 06/04/19 05:10 06/04/19 05:10 Labs: Abnormal lab results 06/03/19 06/03/19 06/04/19 Range/Units 17:23 23:37 05:10 WBC 16.7 H (4.5-11.0) K/mm3 MCH 27 L (28-32) pg RDW 24.5 H (13.2-15.2) % Seg Neuts % (Manual) 94.0 H (40.0-70.0) % Lymphocytes % (Manual) 3.0 L (13.4-35.0) % Seg Neutrophils # Man 15.7 H (1.8-7.7) K/mm3 Lymphocytes # (Manual) 0.5 L (1.2-5.4) K/mm3 BUN (9-20) mg/dL Glucose (75-100) mg/dL POC Glucose 113 H 126 H (70-105) Calcium (8.4-10.2) mg/dL Magnesium (1.7-2.3) mg/dL Total Bilirubin (0.1-1.2) mg/dL Alkaline Phosphatase (35-129) units/L Total Protein (6.3-8.2) g/dL Albumin (3.9-5) g/dL 06/04/19 06/04/19 Range/Units 05:10 05:44 WBC (4.5-11.0) K/mm3 MCH (28-32) pg RDW (13.2-15.2) % Seg Neuts % (Manual) (40.0-70.0) % Lymphocytes % (Manual) (13.4-35.0) % Seg Neutrophils # Man (1.8-7.7) K/mm3 Lymphocytes # (Manual) (1.2-5.4) K/mm3 BUN 39 H (9-20) mg/dL Glucose 136 H (75-100) mg/dL POC Glucose 124 H (70-105) Calcium 8.3 L (8.4-10.2) mg/dL Magnesium 1.30 L (1.7-2.3) mg/dL Total Bilirubin 7.70 H (0.1-1.2) mg/dL Alkaline Phosphatase 140 H (35-129) units/L Total Protein 5.6 L (6.3-8.2) g/dL Albumin 1.7 L (3.9-5) g/dL
[2019-06-04] MEDS: ARFORMOTEROL 15 MCG/2 ML NEBU IH SCH ×2 (07:44→20:41)
[2019-06-04] MEDS: BUDESONIDE 0.5 MG/2 ML NEBU IH SCH ×2 (07:44→20:41)
--- NOTE | 2019-06-04 09:42 | Progress Note ---
Assessment and Plan Pt remains intubated and sedated. S/p patch of perforated gastric ulcer on 06/02. He remains NPO. Currently stable cardiac status. Resume home cardiac regimen once PO intake is resumed. He is noted to have bouts of NSVT on telemetry. He has known NICMP and is followed in our office by Dr. Alatorre. He has chronically declined LifeVest and/or AICD. Monitor electrolyses and cont to observe on telemetry. The patient has been seen in conjunction with Dr. Mason who agrees with the assessment and plan of care. - Patient Problems (1) Pneumoperitoneum Current Visit: Yes Status: Acute (2) Sepsis Current Visit: Yes Status: Acute Qualifiers: Sepsis type: sepsis due to unspecified organism Sepsis acute organ dysfunction status: unspecified Qualified Code(s): A41.9 - Sepsis, unspecified organism (3) Chronic HFrEF (heart failure with reduced ejection fraction) Current Visit: Yes Status: Chronic (4) Nonischemic cardiomyopathy Current Visit: Yes Status: Chronic (5) Sinus node dysfunction Current Visit: Yes Status: Chronic (6) NSVT (nonsustained ventricular tachycardia) Current Visit: Yes Status: Chronic (7) HTN (hypertension) Current Visit: Yes Status: Chronic Qualifiers: Hypertension type: essential hypertension Qualified Code(s): I10 - Essential (primary) hypertension (8) Pulmonary hypertension Current Visit: Yes Status: Chronic (9) PAD (peripheral artery disease) Current Visit: Yes Status: Chronic Subjective Date of service: 06/04/19 Principal diagnosis: perforated gastric ulcer Interval history: pt intubated, sedated. strict NPO. in SR, no acute events noted overnight. no family at bedside. Objective Last Vital Signs Temp 97.5 F L 06/04/19 04:00 Pulse 96 H 06/04/19 08:21 Resp 11 L 06/04/19 08:21 BP 120/76 06/04/19 08:21 Pulse Ox 98 06/04/19 08:21 - Physical Examination General: Other (intubated, sedated) HEENT: Positive: EOMI, Normocephaly, Mucus Membranes Moist Neck: Positive: neck supple, trachea midline, Carotid Upstroke (full) Cardiac: Positive: Reg Rate and Rhythm, S1/S2 Lungs: Positive: Decreased Breath Sounds, Oxygen, Ventilated Respirations Neuro: Positive: Grossly Intact Abdomen: Positive: Soft Musculoskeletal: Normal Range of Motion Extremities: Present: +1 Edema (bilateral leg and feet) - Labs and Meds Cardiac Enzymes 06/04/19 Range/Units 05:10 AST 30 (5-40) units/L CBC 06/04/19 Range/Units 05:10 WBC 16.7 H (4.5-11.0) K/mm3 RBC 5.01 (3.65-5.03) M/mm3 Hgb 13.5 (11.8-15.2) gm/dl Hct 42.5 (35.5-45.6) % Plt Count 184 (140-440) K/mm3 Comprehensive Metabolic Panel 06/04/19 Range/Units 05:10 Sodium 137 (137-145) mmol/L Potassium 3.7 (3.6-5.0) mmol/L Chloride 103.3 (98-107) mmol/L Carbon Dioxide 23 (22-30) mmol/L BUN 39 H (9-20) mg/dL Creatinine 1.2 (0.8-1.5) mg/dL Glucose 136 H (75-100) mg/dL Calcium 8.3 L (8.4-10.2) mg/dL AST 30 (5-40) units/L ALT 29 (7-56) units/L Alkaline Phosphatase 140 H (35-129) units/L Total Protein 5.6 L (6.3-8.2) g/dL Albumin 1.7 L (3.9-5) g/dL - Imaging and Cardiology EKG: image reviewed Echo: report reviewed (02/28/19 showed EF of 10-15%, dilation of all chambers, moderate AR, moderate to severe TR and RV hypokinesis. ) Cardiac cath: report reviewed (04/2017 showed patent coronaries, EF 10-15%. ) - Telemetry EKG Rhythm: Sinus Rhythm - EKG Sinus rhythms and dysrhythmias: sinus rhythm Chamber hypertrophy or enlargement: left ventricular hypertro Repolarization changes or abnormalities: repolarization abn secondary to ventricular hypertrophy Myocardial infarction: septal OR (old age or ind
[2019-06-04] MEDS: VANCOMYCIN/NS 1 GM/250 ML 1 GM/250 ML BAG IV SCH (09:50)
[2019-06-04] MEDS: PANTOPRAZOLE 40 MG INJ IV SCH ×2 (09:50→22:30)
--- NOTE | 2019-06-04 10:56 | Progress Note ---
Assessment and Plan 63 yo M s/p exploratory laparotomy, omental patch of perforated gastric ulcer POD 2 1. sepsis 2. perforated gastric ulcer 3. severe malnutrition 4. b/l pleural effusions 5. bedbound 6. infected b/l LE wounds with likely chronic limb ischemia 7. cardiomyopathy 8. CHF Arterial duplex - no Plan: 1. Neuro - off sedation. If extubated can start dilaudid IV prn 2. CV - BP and HR stable. Cardiology on board 3. Resp - on vent. Management per ICU team, wean as tolerated. ?extubate today 4. GI - strict NPO, TPN. TANESHA drain to bulb suction - monitor output. DC PPI gtt and star protonix BID. NGT to LIWS - DO NOT REMOVE, MANIPULATE, FLUSH, OR USE FOR MEDS. Will need UGI in 24 hours and if repair is intact, will start TF or clear liquid diet (if extubated). 5. Endo - Blood glucose monitoring per protocol 6. ID - intraop cultures prelim - janeth. Lower extremity wound cx prelim - gr am neg. Continue abx per ID. Multiple infected wounds of LE - continue wound care per perinatal director 7. IVETTE garcia for strict I/Os. 8. [facility] - DVT ppx. Offloading. consult Dr. Oakes for evaluation of LE for debridement vs amputation. Thank you, please call with questions. Subjective Date of service: 06/04/19 Narrative: Pt seen and examined. Remains intubated but awake on vent. NO overnight events noted. Objective Vital Signs - 12hr 06/03/19 06/03/19 06/03/19 23:00 23:07 23:11 Temperature Pulse Rate 95 H 96 H 96 H Pulse Rate [ Anterior Bilateral Throughout] Pulse Rate [ From Monitor] Respiratory 20 20 18 Rate Respiratory Rate [Anterior Bilateral Throughout] Blood Pressure 119/77 119/77 116/75 O2 Sat by Pulse 98 98 Oximetry 06/03/19 06/03/19 06/03/19 23:21 23:30 23:41 Temperature Pulse Rate 96 H 97 H 97 H Pulse Rate [ Anterior Bilateral Throughout] Pulse Rate [ From Monitor] Respiratory 20 18 20 Rate Respiratory Rate [Anterior Bilateral Throughout] Blood Pressure 118/75 116/76 118/75 O2 Sat by Pulse 98 96 98 Oximetry 06/03/19 06/04/19 06/04/19 23:51 00:00 00:11 Temperature 97.5 F L Pulse Rate 98 H 96 H 96 H Pulse Rate [ Anterior Bilateral Throughout] Pulse Rate [ 96 H From Monitor] Respiratory 20 20 20 Rate Respiratory Rate [Anterior Bilateral Throughout] Blood Pressure 119/79 113/72 119/79 O2 Sat by Pulse 98 98 98 Oximetry 06/04/19 06/04/19 06/04/19 00:21 00:30 00:41 Temperature Pulse Rate 96 H 96 H 97 H Pulse Rate [ Anterior Bilateral Throughout] Pulse Rate [ From Monitor] Respiratory 20 20 21 Rate Respiratory Rate [Anterior Bilateral Throughout] Blood Pressure 115/74 111/74 115/74 O2 Sat by Pulse 98 98 98 Oximetry 06/04/19 06/04/19 06/04/19 00:51 01:00 01:10 Temperature Pulse Rate 96 H 96 H 94 H Pulse Rate [ Anterior Bilateral Throughout] Pulse Rate [ From Monitor] Respiratory 20 20 20 Rate Respiratory Rate [Anterior Bilateral Throughout] Blood Pressure 113/73 112/72 112/72 O2 Sat by Pulse 98 98 Oximetry 06/04/19 06/04/19 06/04/19 01:21 01:30 01:41 Temperature Pulse Rate 97 H 96 H 97 H Pulse Rate [ Anterior Bilateral Throughout] Pulse Rate [ From Monitor] Respiratory 20 20 20 Rate Respiratory Rate [Anterior Bilateral Throughout] Blood Pressure 115/71 114/72 115/71 O2 Sat by Pulse 98 98 Oximetry 06/04/19 06/04/19 06/04/19 01:51 02:00 02:11 Temperature Pulse Rate 97 H 99 H 98 H Pulse Rate [ Anterior Bilateral Throughout] Pulse Rate [ From Monitor] Respiratory 20 20 20 Rate Respiratory Rate [Anterior Bilateral Throughout] Blood Pressure 110/72 118/75 118/75 O2 Sat by Pulse 98 98 98 Oximetry 06/04/19 06/04/19 06/04/19 02:21 02:30 02:41 Temperature Pulse Rate 97 H 96 H 96 H Pulse Rate [ Anterior Bilateral Throughout] Pulse Rate [ From Monitor] Respiratory 20 20 20 Rate Respiratory Rate [Anterior Bilateral Throughout] Blood Pressure 108/76 108/71 108/71 O2 Sat by Pulse 97 97 Oximetry 06/04/19 06/04/19 06/04/19 02:51 03:00 03:11 Temperature Pulse Rate 96 H 96 H 95 H Pulse Rate [ Anterior Bilateral Throughout] Pulse Rate [ From Monitor] Respiratory 20 20 20 Rate Respiratory Rate [Anterior Bilateral Throughout] Blood Pressure 105/70 108/70 108/70 O2 Sat by Pulse 97 97 Oximetry 06/04/19 06/04/19 06/04/19 03:21 03:30 03:41 Temperature Pulse Rate 95 H 97 H 99 H Pulse Rate [ Anterior Bilateral Throughout] Pulse Rate [ From Monitor] Respiratory 15 19 19 Rate Respiratory Rate [Anterior Bilateral Throughout] Blood Pressure 103/70 110/72 110/72 O2 Sat by Pulse 98 98 Oximetry 06/04/19 06/04/19 06/04/19 03:51 04:00 04:11 Temperature 97.5 F L Pulse Rate 94 H 94 H 93 H Pulse Rate [ Anterior Bilateral Throughout] Pulse Rate [ 96 H From Monitor] Respiratory 20 18 25 H Rate Respiratory Rate [Anterior Bilateral Throughout] Blood Pressure 113/76 113/74 113/74 O2 Sat by Pulse 97 Oximetry 06/04/19 06/04/19 06/04/19 04:21 04:30 04:38 Temperature Pulse Rate 94 H 94 H 94 H Pulse Rate [ Anterior Bilateral Throughout] Pulse Rate [ From Monitor] Respiratory 20 19 Rate Respiratory Rate [Anterior Bilateral Throughout] Blood Pressure 122/76 117/74 122/76 O2 Sat by Pulse 99 Oximetry 06/04/19 06/04/19 06/04/19 04:41 04:51 05:00 Temperature Pulse Rate 94 H 95 H 93 H Pulse Rate [ Anterior Bilateral Throughout] Pulse Rate [ From Monitor] Respiratory 19 20 21 Rate Respiratory Rate [Anterior Bilateral Throughout] Blood Pressure 117/74 114/74 113/77 O2 Sat by Pulse 96 Oximetry 06/04/19 06/04/19 06/04/19 05:11 05:21 05:30 Temperature Pulse Rate 95 H 94 H 94 H Pulse Rate [ Anterior Bilateral Throughout] Pulse Rate [ From Monitor] Respiratory 20 20 20 Rate Respiratory Rate [Anterior Bilateral Throughout] Blood Pressure 113/77 113/75 118/74 O2 Sat by Pulse 96 96 Oximetry 06/04/19 06/04/19 06/04/19 05:41 05:51 06:00 Temperature Pulse Rate 92 H 95 H 96 H Pulse Rate [ Anterior Bilateral Throughout] Pulse Rate [ From Monitor] Respiratory 20 21 20 Rate Respiratory Rate [Anterior Bilateral Throughout] Blood Pressure 118/74 113/75 124/78 O2 Sat by Pulse 97 98 Oximetry 1106/04/19 06/04/19 06:11 06:21 06:30 Temperature Pulse Rate 96 H 92 H 96 H Pulse Rate [ Anterior Bilateral Throughout] Pulse Rate [ From Monitor] Respiratory 18 20 20 Rate Respiratory Rate [Anterior Bilateral Throughout] Blood Pressure 124/78 117/78 117/77 O2 Sat by Pulse 97 98 Oximetry 06/04/19 06/04/19 06/04/19 06:41 06:51 07:00 Temperature Pulse Rate 94 H 94 H 95 H Pulse Rate [ Anterior Bilateral Throughout] Pulse Rate [ From Monitor] Respiratory 20 20 20 Rate Respiratory Rate [Anterior Bilateral Throughout] Blood Pressure 117/77 106/74 105/72 O2 Sat by Pulse 97 97 Oximetry 06/04/19 06/04/19 06/04/19 07:11 07:21 07:30 Temperature Pulse Rate 85 94 H 92 H Pulse Rate [ Anterior Bilateral Throughout] Pulse Rate [ From Monitor] Respiratory 20 20 15 Rate Respiratory Rate [Anterior Bilateral Throughout] Blood Pressure 105/72 105/72 115/74 O2 Sat by Pulse 97 97 Oximetry 06/04/19 06/04/19 06/04/19 07:41 07:45 07:46 Temperature Pulse Rate 95 H 95 H Pulse Rate [ 99 H Anterior Bilateral Throughout] Pulse Rate [ From Monitor] Respiratory 19 15 Rate Respiratory 20 Rate [Anterior Bilateral Throughout] Blood Pressure 115/74 112/77 O2 Sat by Pulse 98 97 Oximetry 06/04/19 06/04/19 06/04/19 07:51 08:00 08:11 Temperature Pulse Rate 103 H 101 H 98 H Pulse Rate [ Anterior Bilateral Throughout] Pulse Rate [ 93 H From Monitor] Respiratory 18 16 12 Rate Respiratory Rate [Anterior Bilateral Throughout] Blood Pressure 112/77 118/79 118/79 O2 Sat by Pulse 97 97 97 Oximetry 06/04/19 06/04/19 06/04/19 08:21 08:30 08:41 Temperature Pulse Rate 96 H 95 H 98 H Pulse Rate [ Anterior Bilateral Throughout] Pulse Rate [ From Monitor] Respiratory 11 L 10 L 5 L Rate Respiratory Rate [Anterior Bilateral Throughout] Blood Pressure 120/76 117/79 117/79 O2 Sat by Pulse 98 97 Oximetry 06/04/19 06/04/19 06/04/19 08:51 09:00 09:11 Temperature Pulse Rate 98 H 99 H 99 H Pulse Rate [ Anterior Bilateral Throughout] Pulse Rate [ From Monitor] Respiratory 11 L 12 9 L Rate Respiratory Rate [Anterior Bilateral Throughout] Blood Pressure 122/77 125/76 125/76 O2 Sat by Pulse 97 97 97 Oximetry 06/04/19 06/04/19 06/04/19 09:21 09:30 09:41 Temperature Pulse Rate 98 H 99 H 98 H Pulse Rate [ Anterior Bilateral Throughout] Pulse Rate [ From Monitor] Respiratory 8 L 8 L 13 Rate Respiratory Rate [Anterior Bilateral Throughout] Blood Pressure 123/80 121/77 121/77 O2 Sat by Pulse 97 96 Oximetry 06/04/19 06/04/19 06/04/19 09:51 10:00 10:11 Temperature Pulse Rate 100 H 100 H 99 H Pulse Rate [ Anterior Bilateral Throughout] Pulse Rate [ From Monitor] Respiratory 6 L 11 L 7 L Rate Respiratory Rate [Anterior Bilateral Throughout] Blood Pressure 124/83 105/73 105/73 O2 Sat by Pulse 96 97 Oximetry 06/04/19 06/04/19 10:21 10:30 Temperature Pulse Rate 101 H 100 H Pulse Rate [ Anterior Bilateral Throughout] Pulse Rate [ From Monitor] Respiratory 7 L 11 L Rate Respiratory Rate [Anterior Bilateral Throughout] Blood Pressure 111/70 113/76 O2 Sat by Pulse 98 Oximetry - General physical appearance Narrative Exam: Gen: Awake on vent, following commands appropriately. NAD ENT; NGT with scant brown drainage. ETT in place CV: s1, S2+ Resp; on vent - CPAP mode Abd: soft, NT, ND. Incision c/d/i. TANESHA serous Ext: +generalized edema : garcia - Labs 06/04/19 05:10 06/04/19 05:10 Diabetes panel 06/04/19 Range/Units 05:10 Sodium 137 (137-145) mmol/L Potassium 3.7 (3.6-5.0) mmol/L Chloride 103.3 (98-107) mmol/L Carbon Dioxide 23 (22-30) mmol/L BUN 39 H (9-20) mg/dL Creatinine 1.2 (0.8-1.5) mg/dL Glucose 136 H (75-100) mg/dL Calcium 8.3 L (8.4-10.2) mg/dL AST 30 (5-40) units/L ALT 29 (7-56) units/L Alkaline Phosphatase 140 H (35-129) units/L Total Protein 5.6 L (6.3-8.2) g/dL Albumin 1.7 L (3.9-5) g/dL Calcium panel 06/04/19 Range/Units 05:10 Calcium 8.3 L (8.4-10.2) mg/dL Phosphorus 3.10 (2.5-4.5) mg/dL Albumin 1.7 L (3.9-5) g/dL Pituitary panel 06/04/19 Range/Units 05:10 Sodium 137 (137-145) mmol/L Potassium 3.7 (3.6-5.0) mmol/L Chloride 103.3 (98-107) mmol/L Carbon Dioxide 23 (22-30) mmol/L BUN 39 H (9-20) mg/dL Creatinine 1.2 (0.8-1.5) mg/dL Glucose 136 H (75-100) mg/dL Calcium 8.3 L (8.4-10.2) mg/dL Adrenal panel 06/04/19 Range/Units 05:10 Sodium 137 (137-145) mmol/L Potassium 3.7 (3.6-5.0) mmol/L Chloride 103.3 (98-107) mmol/L Carbon Dioxide 23 (22-30) mmol/L BUN 39 H (9-20) mg/dL Creatinine 1.2 (0.8-1.5) mg/dL Glucose 136 H (75-100) mg/dL Calcium 8.3 L (8.4-10.2) mg/dL Total Bilirubin 7.70 H (0.1-1.2) mg/dL AST 30 (5-40) units/L ALT 29 (7-56) units/L Alkaline Phosphatase 140 H (35-129) units/L Total Protein 5.6 L (6.3-8.2) g/dL Albumin 1.7 L (3.9-5) g/dL
--- NOTE | 2019-06-04 11:42 | Progress Note ---
Assessment and Plan Assessment and plan: Patient is a 63 yo man with a history of NICMP, chronic HFrEF 10-15%, NSVT declines LifeVest/AICD, CKD 3, HTN and mod to severe TR, b/l LE wounds, bedbound who presents to [facility] ED with c/o abdominal pain for 3 days. He had multiple bilateral lower extremity wound and stage I to 2 lower extremity ulcer covered with pus. CT abdomen and pelvis suggestive of pneumoperitoneum. General surgery has been consulted and patient was taken for OR for exploratory laparotomy by general surgeon. He also received empiric antibiotics, blood culture wound culture has been ordered. Perforated gastric ulcer. - - General surgery consulted for perforated bowel - s/p exploratory laparotomy, omental patch of perforated gastric ulcer by Dr. Sims, Surgeon, POD 2 - cont empiric abx,cautious IV fluid, may need to start on TPN - NPO now, cont PPI ggt Sepsis with bilateral lower extremity cellulitis/infected ulcer and perforated bowel - Continue empiric antibiotics, obtain blood cultures, wound culture - Wound care consult placed, -ID Physician following bilateral lower extremity cellulitis/infected ulcer - from PVD - cont abx, order arterial duplex of b/l LE and consult Dr. Oakes for evaluation of LE for possible amputation - per Dr Sims Moderate b/l pleural effusion CHFrEF 10-15% - Cardiology consulted - monitor ins/os, daily lasix iv to prevent fluid overload Chronic systolic CHF cardiology following Severe protein calorie malnutrition - nutrition consult, may need TPN CKD stage III, monitor renal function, avoid nephrotoxin - renal function stable Elevated bilirubin, trend LFT Severe metabolic acidosis likely due to perforated bowel - bicarbonate as needed Acute respiratory failure following surgery - CC following, cont nebs, wean off vent as tolerated - Provide GI and DVT prophylaxis CT abdomen: 1. Pneumoperitoneum, possibly due to a ruptured gastric or duodenal ulcer. 2. Bilateral pleural effusions, right greater than left, with generalized edema. The high probability of a clinically significant, sudden or life threatening deterioration of the [CVS, GI] system(s) required my full and direct attention, intervention and personal management. The aggregate critical care time was [35] minutes. This time is in addition to time spent performing reported procedures but includes the following: [X] Data Review and interpretation [X] Patient assessment and monitoring of vital signs [X] Documentation [X] Medication orders and management History Interval history: Patient still intubated s/p abdominal surgery Hospitalist Physical - Physical exam Narrative exam: Gen: Not in acute distress, lying in bed,intubated, sedated HEENT: Normocephalic, atraumatic Neck: supple, no JVD Heart: S1 and S2 reg, no murmurs, rubs or gallop Lungs: Clear to auscultation bilaterally, Abd: soft, NT, wound dry, surgical drain, Ext: Dressing over wounds both legs, no cyanosis Neuro: Intubated, sedated - Constitutional Vitals: Temp Pulse Resp BP Pulse Ox 97.0 F L 100 H 11 L 113/76 98 06/04/19 08:00 06/04/19 10:30 06/04/19 10:30 06/04/19 10:30 06/04/19 10:21 General appearance: Present: no acute distress Results - Labs CBC & Chem 7: 06/04/19 05:10 06/04/19 05:10 Labs: Laboratory Last Values WBC 16.7 K/mm3 (4.5-11.0) H 06/04/19 05:10 RBC 5.01 M/mm3 (3.65-5.03) 06/04/19 05:10 Hgb 13.5 gm/dl (11.8-15.2) 06/04/19 05:10 Hct 42.5 % (35.5-45.6) 06/04/19 05:10 MCV 85 fl (84-94) 06/04/19 05:10 MCH 27 pg (28-32) L 06/04/19 05:10 MCHC 32 % (32-34) 06/04/19 05:10 RDW 24.5 % (13.2-15.2) H 06/04/19 05:10 Plt Count 184 K/mm3 (140-440) 06/04/19 05:10 Add Manual Diff Complete 06/04/19 05:10 Total Counted 100 06/04/19 05:10 Seg Neutrophils % Remote Coders 06/04/19 05:10 Seg Neuts % (Manual) 94.0 % (40.0-70.0) H 06/04/19 05:10 Band Neutrophils % 0 % 06/04/19 05:10 Lymphocytes % (Manual) 3.0 % (13.4-35.0) L 06/04/19 05:10 Reactive Lymphs % (Man) 0 % 06/04/19 05:10 Monocytes % (Manual) 2.0 % (0.0-7.3) 06/04/19 05:10 Eosinophils % (Manual) 1.0 % (0.0-4.3) 06/04/19 05:10 Basophils % (Manual) 0 % (0.0-1.8) 06/04/19 05:10 Metamyelocytes % 0 % 06/04/19 05:10 Myelocytes % 0 % 06/04/19 05:10 Promyelocytes % 0 % 06/04/19 05:10 Blast Cells % 0 % 06/04/19 05:10 Nucleated RBC % Not Reportable 06/04/19 05:10 Seg Neutrophils # Man 15.7 K/mm3 (1.8-7.7) H 06/04/19 05:10 Band Neutrophils # 0.0 K/mm3 06/04/19 05:10 Lymphocytes # (Manual) 0.5 K/mm3 (1.2-5.4) L 06/04/19 05:10 Abs React Lymphs (Man) 0.0 K/mm3 06/04/19 05:10 Monocytes # (Manual) 0.3 K/mm3 (0.0-0.8) 06/04/19 05:10 Eosinophils # (Manual) 0.2 K/mm3 (0.0-0.4) 06/04/19 05:10 Basophils # (Manual) 0.0 K/mm3 (0.0-0.1) 06/04/19 05:10 Metamyelocytes # 0.0 K/mm3 06/04/19 05:10 Myelocytes # 0.0 K/mm3 06/04/19 05:10 Promyelocytes # 0.0 K/mm3 06/04/19 05:10 Blast Cells # 0.0 K/mm3 06/04/19 05:10 WBC Morphology Not Reportable 06/04/19 05:10 Hypersegmented Neuts Not Reportable 06/04/19 05:10 Hyposegmented Neuts Not Reportable 06/04/19 05:10 Hypogranular Neuts Not Reportable 06/04/19 05:10 Smudge Cells Not Reportable 06/04/19 05:10 Toxic Granulation Not Reportable 06/04/19 05:10 Toxic Vacuolation Not Reportable 06/04/19 05:10 Dohle Bodies Not Reportable 06/04/19 05:10 Pelger-Huet Anomaly Not Reportable 06/04/19 05:10 Romero Rods Not Reportable 06/04/19 05:10 Platelet Estimate Consistent w auto 06/04/19 05:10 Clumped Platelets Not Reportable 06/04/19 05:10 Plt Clumps, EDTA Not Reportable 06/04/19 05:10 Large Platelets Not Reportable 06/04/19 05:10 Giant Platelets Not Reportable 06/04/19 05:10 Platelet Satelliting Not Reportable 06/04/19 05:10 Plt Morphology Comment Not Reportable 06/04/19 05:10 RBC Morphology Not Reportable 06/04/19 05:10 Dimorphic RBCs Not Reportable 06/04/19 05:10 Polychromasia Not Reportable 06/04/19 05:10 Hypochromasia Few 06/04/19 05:10 Poikilocytosis Not Reportable 06/04/19 05:10 Anisocytosis 1+ 06/04/19 05:10 Microcytosis Not Reportable 06/04/19 05:10 Macrocytosis Not Reportable 06/04/19 05:10 Spherocytes Not Reportable 06/04/19 05:10 Pappenheimer Bodies Not Reportable 06/04/19 05:10 Sickle Cells Not Reportable 06/04/19 05:10 Target Cells 1+ 06/04/19 05:10 Tear Drop Cells Not Reportable 06/04/19 05:10 Ovalocytes Not Reportable 06/04/19 05:10 Helmet Cells Not Reportable 06/04/19 05:10 [place] Bodies Not Reportable 06/04/19 05:10 [place] Rings Not Reportable 06/04/19 05:10 [place] Cells Not Reportable 06/04/19 05:10 Bite Cells Not Reportable 06/04/19 05:10 Crenated Cell Not Reportable 06/04/19 05:10 Elliptocytes Not Reportable 06/04/19 05:10 Acanthocytes (Spur) Not Reportable 06/04/19 05:10 Rouleaux Not Reportable 06/04/19 05:10 Hemoglobin C Crystals Not Reportable 06/04/19 05:10 Schistocytes Not Reportable 06/04/19 05:10 Malaria parasites Not Reportable 06/04/19 05:10 Bunny Bodies Not Reportable 06/04/19 05:10 Hem Pathologist Commnt No 06/04/19 05:10 PT 17.9 Sec. (12.2-14.9) H 06/02/19 07:15 INR 1.50 (0.87-1.13) H 06/02/19 07:15 APTT 33.2 Sec. (24.2-36.6) 06/02/19 07:15 POC ABG pH 7.354 (7.35-7.45) 06/04/19 04:20 POC ABG pCO2 38.2 (35-45) 06/04/19 04:20 POC ABG pO2 104 (80-105) 06/04/19 04:20 POC ABG HCO3 21.3 (22-26 mml/L) 06/04/19 04:20 POC ABG Total CO2 22 (23-27mmol/L) 06/04/19 04:20 POC ABG O2 Sat 98 06/04/19 04:20 POC ABG Base Excess -4 ((-2) - (+3)mmol/L) 06/04/19 04:20 VBG pH 7.310 (7.320-7.420) L 06/02/19 07:15 FiO2 28 % 06/04/19 04:20 Sodium 137 mmol/L (137-145) 06/04/19 05:10 Potassium 3.7 mmol/L (3.6-5.0) 06/04/19 05:10 Chloride 103.3 mmol/L (98-107) 06/04/19 05:10 Carbon Dioxide 23 mmol/L (22-30) 06/04/19 05:10 Anion Gap 14 mmol/L 06/04/19 05:10 BUN 39 mg/dL (9-20) H 06/04/19 05:10 Creatinine 1.2 mg/dL (0.8-1.5) 06/04/19 05:10 Estimated GFR > 60 ml/min 06/04/19 05:10 BUN/Creatinine Ratio 33 % 06/04/19 05:10 Glucose 136 mg/dL (75-100) H 06/04/19 05:10 POC Glucose 124 (70-105) H 06/04/19 05:44 Lactic Acid 1.10 mmol/L (0.7-2.0) 06/02/19 09:17 Calcium 8.3 mg/dL (8.4-10.2) L 06/04/19 05:10 Phosphorus 3.10 mg/dL (2.5-4.5) 06/04/19 05:10 Magnesium 1.30 mg/dL (1.7-2.3) L 06/04/19 05:10 Total Bilirubin 7.70 mg/dL (0.1-1.2) H 06/04/19 05:10 Direct Bilirubin 4.5 mg/dL (0-0.2) H 06/02/19 07:15 Indirect Bilirubin 1.9 mg/dL 06/02/19 07:15 AST 30 units/L (5-40) 06/04/19 05:10 ALT 29 units/L (7-56) 06/04/19 05:10 Alkaline Phosphatase 140 units/L (35-129) H 06/04/19 05:10 Ammonia 16.0 umol/L (25-60) L 06/02/19 07:15 Total Creatine Kinase 53 units/L (55-170) L 06/02/19 07:15 CK-MB (CK-2) 5.1 ng/mL (0.0-4.0) H 06/02/19 07:15 CK-MB (CK-2) Rel Index 9.6 (0-4) H 06/02/19 07:15 Troponin T 0.065 ng/mL (0.00-0.029) H 06/02/19 07:15 NT-Pro-B Natriuret Pep > 71342 pg/mL (0-900) H 06/02/19 07:15 Total Protein 5.6 g/dL (6.3-8.2) L 06/04/19 05:10 Albumin 1.7 g/dL (3.9-5) L 06/04/19 05:10 Albumin/Globulin Ratio 0.4 % 06/04/19 05:10 Triglycerides 112 mg/dL (2-149) 06/02/19 07:15 Cholesterol 73 mg/dL (50-199) 06/02/19 07:15 LDL Cholesterol Direct 31 mg/dL (50-130) L 06/02/19 07:15 HDL Cholesterol 8 mg/dL (40-59) L 06/02/19 07:15 Cholesterol/HDL Ratio 9.12 % 06/02/19 07:15 Lipase 56 units/L (13-60) 06/02/19 07:15 Urine Color Clarita (Yellow) 06/02/19 10:37 Urine Turbidity Clear (Clear) 06/02/19 10:37 Urine pH 5.0 (5.0-7.0) 06/02/19 10:37 Ur Specific [place] 1.019 (1.003-1.030) 06/02/19 10:37 Urine Protein <15 mg/dl mg/dL (Negative) 06/02/19 10:37 Urine Glucose (UA) 50 mg/dL (Negative) 06/02/19 10:37 Urine Ketones Neg mg/dL (Negative) 06/02/19 10:37 Urine Blood Neg (Negative) 06/02/19 10:37 Urine Nitrite Neg (Negative) 06/02/19 10:37 Urine Bilirubin Neg (Negative) 06/02/19 10:37 Urine Urobilinogen 4.0 mg/dL (<2.0) 06/02/19 10:37 Ur Leukocyte Esterase Neg (Negative) 06/02/19 10:37 Urine WBC (Auto) 2.0 /HPF (0.0-6.0) 06/02/19 10:37 Urine RBC (Auto) 2.0 /HPF (0.0-6.0) 06/02/19 10:37 Urine Bacteria (Auto) 1+ /HPF (Negative) 06/02/19 10:37 Blood Type A POSITIVE 06/02/19 11:55 Antibody Screen Negative 06/02/19 11:55 Active Medications - Current Medications Current Medications: Generic Name Dose Route Start Last Admin Trade Name Freq PRN Reason Stop Dose Admin Albuterol 2.5 mg 06/02/19 11:28 Proventil IH Q4H PRN Shortness Of Breath Arformoterol Tartrate 15 mcg 06/02/19 20:00 06/04/19 07:44 Brovana Nebu IH 15 mcg Q12HRT ROSE Administration Budesonide 0.5 mg 06/02/19 20:00 06/04/19 07:44 Pulmicort IH 0.5 mg Q12HRT ROSE Administration Fentanyl 50 mcg 06/02/19 14:28 06/02/19 15:22 Sublimaze IV 50 mcg Q10MIN PRN Administration ANALGESIA Furosemide 40 mg 06/03/19 13:00 06/04/19 05:27 Lasix IV 40 mg DAILY@0600 ROSE Administration Hydrophilic Ointment 1 applic 06/02/19 14:28 Vaseline Lip Therapy TP Q2HR PRN Dry Lips Fentanyl Citrate 2,000 mcg in 100 mls @ 2.76 mls/hr 06/02/19 15:00 06/04/19 08:00 Fentanyl Drip Premix IV 0 mcg/kg/hr TITR ROSE 0 mls/hr Titration Protocol 1 MCG/KG/HR Propofol 1,000 mg in 100 mls @ 1.656 mls/hr 06/02/19 15:00 06/04/19 08:00 Diprivan 10 Mg/Ml IV 0 mcg/kg/min TITR ROSE 0 mls/hr Titration Protocol 5 MCG/KG/MIN Meropenem 500 mg in 50 mls @ 50 mls/hr 06/02/19 17:00 06/04/19 05:30 Merrem/Ns 500 Mg/50 Ml IV Infused Q6H ROSE Infusion Vancomycin HCl 1 gm in 250 mls @ 166.667 mls/hr 06/03/19 10:00 06/04/19 09:50 Vancomycin/Ns 1 Gm/250 Ml IV 166.667 mls/hr Q24HR ROSE Administration Amino Acids 2,000 mls @ 65 mls/hr 06/03/19 21:00 06/03/19 20:39 Clinimix 4.25%-5% Solution IV 06/04/19 19:59 65 mls/hr DIRECT ROSE Administration Multi-Ingred Cream/Lotion/Oil/Oint 1 applic 06/02/19 14:28 Artificial Tears Ophth Oint OU Q4HR PRN Dry Eye(s) Pantoprazole Sodium 40 mg 06/04/19 10:00 06/04/19 09:50 Protonix IV 40 mg BID ROSE Administration Nutrition/Malnutrition Assess - Dietary Evaluation Nutrition/Malnutrition Findings: Nutrition Notes Start: 06/03/19 11:22 Freq: Status: Active Protocol: Document 06/04/19 11:08 LM (Rec: 06/04/19 11:25 LM [email or web address]) Nutrition Notes Initial or Follow up Reassessment Current Diagnosis CKD(stage I-IV),Decubitus( Pressure Ulcer),Sepsis, Hypertension,Heart Failure Other Pertinent Diagnosis Perforated viscus S/P exp lap Current Diet NPO Labs/Tests BUN 39 BG 136 Mg 1.3 Bili 7.7 Pertinent Medications Lasix Propofol at 1.656 ml/hr ( provides 44 kcal) Height 5 ft 7 in Weight 61.1 kg [place] Body Weight (kg) 67.27 BMI 21.1 Weight change and time frame Wt change noted. Likely due to edema Subjective/Other Information CPN day 1. Pt has TLC. Per MD pt will start TF or clear liquid once extubated. Percent of energy/protein needs met: 33%/98% Burn Absent Trauma Absent GI Symptoms None Current % PO Negligible Minimum of two criteria Yes Body Fat Depletion Mild depletion (non-severe) Muscle Mass Mild Depletion (non-severe) Fluid Accumulation Mild (non-severe) Reduced [employer] Strength Measurably Reduced (severe) #1 Nutrition Diagnosis Malnutrition Diagnosis Progress(for reassessment Continues documentation) Is patient on ventilator? Yes Is Patient Ambulatory and/or Out of Bed No REE-([place]-confined to bed) 1654.668 Kcal/Kg value to use for calculation 26 Approximate Energy Requirements Using 1589 kcal/Kg Calculation Used for Recommendations Kcal/kg Additional Notes Protein needs are 66-110g (1.2 -2g/kg) Fluid needs are 1ml/kcal Nutrition Intervention Change Diet Order: CPN Nutrition Support: CPN at 65 ml/hr: 6.4% dextrose , 5.6% AA, 100 mEq Na, 60 mEq K, 22 mEq Mg, 5 mEq Ca, 10 mmol Phos, MVI, thiamine; 1124 mOsmol Kcal 692 Protein (gm) 88 Carbohydrates (gm) 100 Fat (gm) 0 Fluid (mL) 1,560 Fiber (gm) 0 Goal #1 CPN to meet needs as best as possible Anticipated Discharge Needs: Unable to determine at this time Follow-Up By: 06/05/19 Additional Comments Labs in AM: BMP, Mg, Phos F/U for vent status, diet advancement
--- NOTE | 2019-06-04 12:02 | Progress Note ---
Assessment and Plan Cultures Blood culture 06/02/19 no growth to date Urine culture 06/02/19 no growth to date Surgical culture 06/02/19 Suni albicans Wound culture 06/02/2019 - GNR Assessment: 63 yo M significant cardiac PMHx, chronic bilateral wounds admitted with small perforated gastric ulcer. 1. Acute sepsis -present with tachycardia, leukocytosis. Likely secondary to perforated gastric ulcer vs infected chronic wounds 2. Infected bilateral infected wounds - his wounds are markedly worse than previous, even before considering how purulent they are. Comparing to the recent pictures from his March admission, there is considerable necrosis and purulence. I have severe concern for the viability of these limbs. Surgery is already on board, recommend they evaluate the legs for debridment vs amputation. Would get culture of pus. Continue antibiotics pending results. Recs: - continue meropenem 500mg q6h - continue vancomycin with pharmacy dosing, Goal trough 15-20. - obtain cultures of leg wounds - follow up surgical recommendations of leg wounds. Dr. Oakes was consulted for possible amputation. - Suni in abdomen not surprising, however will add fluconazole 400mg q24h. Monitor QTc while on fluconazole given cardiac history. [facility] M: [phone] O: [phone] F: [phone] Subjective Date of service: 06/04/19 Principal diagnosis: perforated gastric ulcer Interval history: Remains intubated and sedated Objective - Exam Narrative Exam: General Intubated, sedated Eyes - PERRLA, EOM intact ENT - Moist mucous membranes, no lymphadenopathy Neck - No noticeable or palpable swelling, redness or rash around throat or on face Lymph Nodes - No lymphadenopathy Cardiovascular - RRR no m/r/g, no JVD, no carotid bruits Lungs - Clear to auscultation, no use of accessory muscles, no crackles or wheezes. Skin - Bilateral LE wounds, both feet under gauze. Noted pictures in chart. Abdomen - Normal bowel sounds, abdomen soft and nontender Extremities - No edema, cyanosis or clubbing Musculoskeletal - Sedated Neurological Sedated - Constitutional Vitals: Vital Signs Temp Pulse Resp BP Pulse Ox 97.0 F L 100 H 11 L 113/76 98 06/04/19 08:00 06/04/19 10:30 06/04/19 10:30 06/04/19 10:30 06/04/19 10:21 Temperature -Last 24 Hours Temperature 97.0 F Temperature 97.5 F Temperature 97.5 F Temperature 97.5 F Temperature 97.5 F Temperature 97.9 F - Labs CBC & Chem 7: 06/04/19 05:10 06/04/19 05:10 Labs: Abnormal lab results 06/03/19 06/03/19 06/04/19 Range/Units 17:23 23:37 05:10 WBC 16.7 H (4.5-11.0) K/mm3 MCH 27 L (28-32) pg RDW 24.5 H (13.2-15.2) % Seg Neuts % (Manual) 94.0 H (40.0-70.0) % Lymphocytes % (Manual) 3.0 L (13.4-35.0) % Seg Neutrophils # Man 15.7 H (1.8-7.7) K/mm3 Lymphocytes # (Manual) 0.5 L (1.2-5.4) K/mm3 BUN (9-20) mg/dL Glucose (75-100) mg/dL POC Glucose 113 H 126 H (70-105) Calcium (8.4-10.2) mg/dL Magnesium (1.7-2.3) mg/dL Total Bilirubin (0.1-1.2) mg/dL Alkaline Phosphatase (35-129) units/L Total Protein (6.3-8.2) g/dL Albumin (3.9-5) g/dL 06/04/19 06/04/19 Range/Units 05:10 05:44 WBC (4.5-11.0) K/mm3 MCH (28-32) pg RDW (13.2-15.2) % Seg Neuts % (Manual) (40.0-70.0) % Lymphocytes % (Manual) (13.4-35.0) % Seg Neutrophils # Man (1.8-7.7) K/mm3 Lymphocytes # (Manual) (1.2-5.4) K/mm3 BUN 39 H (9-20) mg/dL Glucose 136 H (75-100) mg/dL POC Glucose 124 H (70-105) Calcium 8.3 L (8.4-10.2) mg/dL Magnesium 1.30 L (1.7-2.3) mg/dL Total Bilirubin 7.70 H (0.1-1.2) mg/dL Alkaline Phosphatase 140 H (35-129) units/L Total Protein 5.6 L (6.3-8.2) g/dL Albumin 1.7 L (3.9-5) g/dL
[2019-06-04] MEDS: FLUCONAZOLE 400 MG 200 ML IV SCH (13:00)
--- NOTE | 2019-06-04 15:28 | Progress Note ---
Assessment and Plan Imp: 1. Gastric perforation 2. Necrotic LE ulcers 3. Sepsis 4. Acute respiratory failure, hypoxia 5. Metabolic encephalopathy 6. NICMP 7. Chronic systolic CHF 8. CKD Rec: 1. ABX per ID; f/u cultures 2. Pulmonary mechanics are excellent, but unfortunately he is having apnea episodes on PSV w/ RR as low as 4 per minute; recommend stopping all narcotics for now, placing back on ACVC, and resuming PSV trials when he is more alert 3. Cautious hydration given CHF 4. Further plans as per surgery 5. SCDs/PPI 6. Labs in AM Plan of care reviewed w/ sister at bedside, she understands/agrees CCT 31 minutes Subjective Date of service: 06/04/19 Principal diagnosis: perforated gastric ulcer Interval history: No events. Somnolent on PSV with RR of ~ 7 when I came by. Arousable and follows commands though. Able to pull a TV of 1.4 liters. Active Medications Albuterol (Proventil) 2.5 mg IH Q4H PRN PRN Reason: Shortness Of Breath Arformoterol Tartrate (Brovana Nebu) 15 mcg IH Q12HRT [facility] Last Admin: 06/04/19 07:44 Dose: 15 mcg Documented by: Budesonide (Pulmicort) 0.5 mg IH Q12HRT [facility] Last Admin: 06/04/19 07:44 Dose: 0.5 mg Documented by: Furosemide (Lasix) 40 mg IV DAILY@0600 [facility] Last Admin: 06/04/19 05:27 Dose: 40 mg Documented by: Hydrophilic Ointment (Vaseline Lip Therapy) 1 applic TP Q2HR PRN PRN Reason: Dry Lips Propofol (Diprivan 10 Mg/Ml) 1,000 mg in 100 mls @ 1.656 mls/hr IV TITR [facility]; Protocol Last Titration: 06/04/19 08:00 Dose: 0 mcg/kg/min, 0 mls/hr Documented by: Meropenem (Merrem/Ns 500 Mg/50 Ml) 500 mg in 50 mls @ 50 mls/hr IV Q6H [facility] Last Infusion: 06/04/19 12:00 Dose: Infused Documented by: Vancomycin HCl (Vancomycin/Ns 1 Gm/250 Ml) 1 gm in 250 mls @ 166.667 mls/hr IV Q24HR [facility] Last Infusion: 06/04/19 11:20 Dose: Infused Documented by: Amino Acids (Clinimix 4.25%-5% Solution) 2,000 mls @ 65 mls/hr IV DIRECT [facility] Stop: 06/04/19 19:59 Last Admin: 06/03/19 20:39 Dose: 65 mls/hr Documented by: Fluconazole (Diflucan) 200 mls @ 100 mls/hr IV Q24HR [facility]; Protocol Last Infusion: 06/04/19 15:00 Dose: Infused Documented by: Amino Acids/Electrolytes/Dextrose (Tpn Adult) 1,560 mls @ 65 mls/hr IV DAILY@2000 [facility]; Protocol Stop: 06/05/19 19:59 Multi-Ingred Cream/Lotion/Oil/Oint (Artificial Tears Ophth Oint) 1 applic OU Q4 HR PRN PRN Reason: Dry Eye(s) Last Admin: 06/04/19 15:23 Dose: 1 applic Documented by: Pantoprazole Sodium (Protonix) 40 mg IV BID [facility] Last Admin: 06/04/19 09:50 Dose: 40 mg Documented by: Objective Vital Signs - 12hr 06/04/19 06/04/19 06/04/19 03:30 03:41 03:51 Temperature Pulse Rate 97 H 99 H 94 H Pulse Rate [ Anterior Bilateral Throughout] Pulse Rate [ From Monitor] Respiratory 19 19 20 Rate Respiratory Rate [Anterior Bilateral Throughout] Blood Pressure 110/72 110/72 113/76 O2 Sat by Pulse 98 Oximetry 06/04/19 06/04/19 06/04/19 04:00 04:11 04:21 Temperature 97.5 F L Pulse Rate 94 H 93 H 94 H Pulse Rate [ Anterior Bilateral Throughout] Pulse Rate [ 96 H From Monitor] Respiratory 18 25 H 20 Rate Respiratory Rate [Anterior Bilateral Throughout] Blood Pressure 113/74 113/74 122/76 O2 Sat by Pulse 97 Oximetry 06/04/19 06/04/19 06/04/19 04:30 04:38 04:41 Temperature Pulse Rate 94 H 94 H 94 H Pulse Rate [ Anterior Bilateral Throughout] Pulse Rate [ From Monitor] Respiratory 19 19 Rate Respiratory Rate [Anterior Bilateral Throughout] Blood Pressure 117/74 122/76 117/74 O2 Sat by Pulse 99 Oximetry 06/04/19 06/04/19 06/04/19 04:51 05:00 05:11 Temperature Pulse Rate 95 H 93 H 95 H Pulse Rate [ Anterior Bilateral Throughout] Pulse Rate [ From Monitor] Respiratory 20 21 20 Rate Respiratory Rate [Anterior Bilateral Throughout] Blood Pressure 114/74 113/77 113/77 O2 Sat by Pulse 96 96 Oximetry 06/04/19 06/04/19 06/04/19 05:21 05:30 05:41 Temperature Pulse Rate 94 H 94 H 92 H Pulse Rate [ Anterior Bilateral Throughout] Pulse Rate [ From Monitor] Respiratory 20 20 20 Rate Respiratory Rate [Anterior Bilateral Throughout] Blood Pressure 113/75 118/74 118/74 O2 Sat by Pulse 96 97 Oximetry 06/04/19 06/04/19 06/04/19 05:51 06:00 06:11 Temperature Pulse Rate 95 H 96 H 96 H Pulse Rate [ Anterior Bilateral Throughout] Pulse Rate [ From Monitor] Respiratory 21 20 18 Rate Respiratory Rate [Anterior Bilateral Throughout] Blood Pressure 113/75 124/78 124/78 O2 Sat by Pulse 98 97 Oximetry 06/04/19 06/04/19 06/04/19 06:21 06:30 06:41 Temperature Pulse Rate 92 H 96 H 94 H Pulse Rate [ Anterior Bilateral Throughout] Pulse Rate [ From Monitor] Respiratory 20 20 20 Rate Respiratory Rate [Anterior Bilateral Throughout] Blood Pressure 117/78 117/77 117/77 O2 Sat by Pulse 98 97 Oximetry 06/04/19 06/04/19 06/04/19 06:51 07:00 07:11 Temperature Pulse Rate 94 H 95 H 85 Pulse Rate [ Anterior Bilateral Throughout] Pulse Rate [ From Monitor] Respiratory 20 20 20 Rate Respiratory Rate [Anterior Bilateral Throughout] Blood Pressure 106/74 105/72 105/72 O2 Sat by Pulse 97 97 Oximetry 06/04/19 06/04/19 06/04/19 07:21 07:30 07:41 Temperature Pulse Rate 94 H 92 H 95 H Pulse Rate [ Anterior Bilateral Throughout] Pulse Rate [ From Monitor] Respiratory 20 15 19 Rate Respiratory Rate [Anterior Bilateral Throughout] Blood Pressure 105/72 115/74 115/74 O2 Sat by Pulse 97 98 Oximetry 06/04/19 06/04/19 06/04/19 07:45 07:46 07:51 Temperature Pulse Rate 95 H 103 H Pulse Rate [ 99 H Anterior Bilateral Throughout] Pulse Rate [ From Monitor] Respiratory 15 18 Rate Respiratory 20 Rate [Anterior Bilateral Throughout] Blood Pressure 112/77 112/77 O2 Sat by Pulse 97 97 Oximetry 06/04/19 06/04/19 06/04/19 08:00 08:11 08:21 Temperature 97.0 F L Pulse Rate 101 H 98 H 96 H Pulse Rate [ Anterior Bilateral Throughout] Pulse Rate [ 93 H From Monitor] Respiratory 16 12 11 L Rate Respiratory Rate [Anterior Bilateral Throughout] Blood Pressure 118/79 118/79 120/76 O2 Sat by Pulse 97 97 98 Oximetry 06/04/19 06/04/19 06/04/19 08:30 08:41 08:51 Temperature Pulse Rate 95 H 98 H 98 H Pulse Rate [ Anterior Bilateral Throughout] Pulse Rate [ From Monitor] Respiratory 10 L 5 L 11 L Rate Respiratory Rate [Anterior Bilateral Throughout] Blood Pressure 117/79 117/79 122/77 O2 Sat by Pulse 97 97 Oximetry 06/04/19 06/04/19 06/04/19 09:00 09:11 09:21 Temperature Pulse Rate 99 H 99 H 98 H Pulse Rate [ Anterior Bilateral Throughout] Pulse Rate [ From Monitor] Respiratory 12 9 L 8 L Rate Respiratory Rate [Anterior Bilateral Throughout] Blood Pressure 125/76 125/76 123/80 O2 Sat by Pulse 97 97 97 Oximetry 06/04/19 06/04/19 06/04/19 09:30 09:41 09:51 Temperature Pulse Rate 99 H 98 H 100 H Pulse Rate [ Anterior Bilateral Throughout] Pulse Rate [ From Monitor] Respiratory 8 L 13 6 L Rate Respiratory Rate [Anterior Bilateral Throughout] Blood Pressure 121/77 121/77 124/83 O2 Sat by Pulse 96 96 Oximetry 06/04/19 06/04/19 06/04/19 10:00 10:11 10:21 Temperature Pulse Rate 100 H 99 H 101 H Pulse Rate [ Anterior Bilateral Throughout] Pulse Rate [ From Monitor] Respiratory 11 L 7 L 7 L Rate Respiratory Rate [Anterior Bilateral Throughout] Blood Pressure 105/73 105/73 111/70 O2 Sat by Pulse 97 98 Oximetry 06/04/19 06/04/19 06/04/19 10:30 10:41 10:51 Temperature Pulse Rate 100 H 100 H 101 H Pulse Rate [ Anterior Bilateral Throughout] Pulse Rate [ From Monitor] Respiratory 11 L 6 L 9 L Rate Respiratory Rate [Anterior Bilateral Throughout] Blood Pressure 113/76 113/76 122/70 O2 Sat by Pulse 96 96 Oximetry 06/04/19 06/04/19 06/04/19 11:00 11:11 11:21 Temperature Pulse Rate 99 H 99 H 100 H Pulse Rate [ Anterior Bilateral Throughout] Pulse Rate [ From Monitor] Respiratory 7 L 8 L 8 L Rate Respiratory Rate [Anterior Bilateral Throughout] Blood Pressure 117/72 117/72 118/74 O2 Sat by Pulse 96 Oximetry 06/04/19 06/04/19 06/04/19 11:30 11:41 11:51 Temperature Pulse Rate 101 H 99 H 100 H Pulse Rate [ Anterior Bilateral Throughout] Pulse Rate [ From Monitor] Respiratory 15 21 13 Rate Respiratory Rate [Anterior Bilateral Throughout] Blood Pressure 111/75 111/75 112/74 O2 Sat by Pulse 94 Oximetry 06/04/19 06/04/19 06/04/19 12:00 12:11 12:21 Temperature 97.7 F Pulse Rate 100 H 99 H 100 H Pulse Rate [ Anterior Bilateral Throughout] Pulse Rate [ 103 H From Monitor] Respiratory 13 11 L 7 L Rate Respiratory Rate [Anterior Bilateral Throughout] Blood Pressure 116/74 116/74 121/74 O2 Sat by Pulse 97 100 Oximetry 06/04/19 06/04/19 06/04/19 12:30 12:41 12:51 Temperature Pulse Rate 101 H 102 H 105 H Pulse Rate [ Anterior Bilateral Throughout] Pulse Rate [ From Monitor] Respiratory 7 L 7 L 9 L Rate Respiratory Rate [Anterior Bilateral Throughout] Blood Pressure 120/69 120/69 124/73 O2 Sat by Pulse 98 Oximetry 06/04/19 06/04/19 06/04/19 13:00 13:11 13:21 Temperature Pulse Rate 104 H 108 H 106 H Pulse Rate [ Anterior Bilateral Throughout] Pulse Rate [ From Monitor] Respiratory 8 L 8 L 12 Rate Respiratory Rate [Anterior Bilateral Throughout] Blood Pressure 115/76 115/76 119/72 O2 Sat by Pulse 97 97 Oximetry 06/04/19 06/04/19 06/04/19 13:30 13:41 13:42 Temperature Pulse Rate 103 H 107 H 108 H Pulse Rate [ Anterior Bilateral Throughout] Pulse Rate [ From Monitor] Respiratory 11 L 16 Rate Respiratory Rate [Anterior Bilateral Throughout] Blood Pressure 122/72 122/72 115/76 O2 Sat by Pulse 96 96 97 Oximetry 06/04/19 06/04/19 06/04/19 13:51 14:00 14:11 Temperature Pulse Rate 106 H 104 H 105 H Pulse Rate [ Anterior Bilateral Throughout] Pulse Rate [ From Monitor] Respiratory 17 18 20 Rate Respiratory Rate [Anterior Bilateral Throughout] Blood Pressure 106/70 112/70 112/70 O2 Sat by Pulse 97 97 Oximetry 06/04/19 06/04/19 06/04/19 14:21 14:30 14:41 Temperature Pulse Rate 103 H 105 H 107 H Pulse Rate [ Anterior Bilateral Throughout] Pulse Rate [ From Monitor] Respiratory 18 12 18 Rate Respiratory Rate [Anterior Bilateral Throughout] Blood Pressure 114/72 126/80 126/80 O2 Sat by Pulse Oximetry Constitutional: asleep (nonfocal), other (intubated, critically ill on vent) Eyes: non-icteric ENT: oropharynx moist Neck: supple Effort: normal Ascultation: Bilateral: other (coarse BS bilaterally) Cardiovascular: regular rate and rhythm (no mrg) Gastrointestinal: absent bowel sounds, non-tender, other (distended) Integumentary: other (necrotic ulcers lower extremities) Extremities: no cyanosis, edema (1+ generalized edema) Neurologic: other (sedated) Psychiatric: mood appropriate, affect normal CBC and BMP: 06/04/19 05:10 06/04/19 05:10 ABG, PT/INR, D-dimer: ABG POC ABG pH 7.354 (7.35-7.45) 06/04/19 04:20 POC ABG pCO2 38.2 (35-45) 06/04/19 04:20 POC ABG pO2 104 (80-105) 06/04/19 04:20 POC ABG HCO3 21.3 (22-26 mml/L) 06/04/19 04:20 POC ABG Total CO2 22 (23-27mmol/L) 06/04/19 04:20 POC ABG O2 Sat 98 06/04/19 04:20 PT/INR, D-dimer PT 17.9 Sec. (12.2-14.9) H 06/02/19 07:15 INR 1.50 (0.87-1.13) H 06/02/19 07:15 Abnormal lab findings: Abnormal Labs 06/02/19 06/02/19 06/02/19 07:15 07:15 07:15 WBC 21.0 H RBC 5.17 H MCH 27 L RDW 23.8 H Seg Neuts % (Manual) 97.0 H Lymphocytes % (Manual) 1.0 L Nucleated RBC % 3.0 H Seg Neutrophils # Man 20.4 H Lymphocytes # (Manual) 0.2 L PT 17.9 H INR 1.50 H POC ABG pH POC ABG pCO2 POC ABG pO2 VBG pH Sodium 130 L Chloride 97.1 L Carbon Dioxide 16 L BUN 47 H Glucose 139 H POC Glucose Lactic Acid Calcium Magnesium Total Bilirubin 6.40 H Direct Bilirubin 4.5 H AST 50 H Alkaline Phosphatase 179 H Ammonia Total Creatine Kinase 53 L CK-MB (CK-2) 5.1 H CK-MB (CK-2) Rel Index 9.6 H Troponin T NT-Pro-B Natriuret Pep > 72690 H Total Protein 5.8 L Albumin 2.1 L LDL Cholesterol Direct HDL Cholesterol 06/02/19 06/02/19 06/02/19 07:15 07:15 07:15 WBC RBC MCH RDW Seg Neuts % (Manual) Lymphocytes % (Manual) Nucleated RBC % Seg Neutrophils # Man Lymphocytes # (Manual) PT INR POC ABG pH POC ABG pCO2 POC ABG pO2 VBG pH 7.310 L Sodium Chloride Carbon Dioxide BUN Glucose POC Glucose Lactic Acid 2.40 H* Calcium Magnesium Total Bilirubin Direct Bilirubin AST Alkaline Phosphatase Ammonia 16.0 L Total Creatine Kinase CK-MB (CK-2) CK-MB (CK-2) Rel Index Troponin T NT-Pro-B Natriuret Pep Total Protein Albumin LDL Cholesterol Direct HDL Cholesterol 06/02/19 06/02/19 06/02/19 07:15 15:33 15:53 WBC RBC MCH RDW Seg Neuts % (Manual) Lymphocytes % (Manual) Nucleated RBC % Seg Neutrophils # Man Lymphocytes # (Manual) PT INR POC ABG pH 7.229 L POC ABG pCO2 49.5 H POC ABG pO2 VBG pH Sodium Chloride Carbon Dioxide BUN Glucose POC Glucose 66 L Lactic Acid Calcium Magnesium Total Bilirubin Direct Bilirubin AST Alkaline Phosphatase Ammonia Total Creatine Kinase CK-MB (CK-2) CK-MB (CK-2) Rel Index Troponin T 0.065 H NT-Pro-B Natriuret Pep Total Protein Albumin LDL Cholesterol Direct 31 L HDL Cholesterol 8 L 06/02/19 06/02/19 06/03/19 16:40 17:10 04:06 WBC RBC MCH RDW Seg Neuts % (Manual) Lymphocytes % (Manual) Nucleated RBC % Seg Neutrophils # Man Lymphocytes # (Manual) PT INR POC ABG pH 7.259 L POC ABG pCO2 33.9 L POC ABG pO2 221 H 146 H VBG pH Sodium Chloride Carbon Dioxide BUN Glucose POC Glucose 151 H Lactic Acid Calcium Magnesium Total Bilirubin Direct Bilirubin AST Alkaline Phosphatase Ammonia Total Creatine Kinase CK-MB (CK-2) CK-MB (CK-2) Rel Index Troponin T NT-Pro-B Natriuret Pep Total Protein Albumin LDL Cholesterol Direct HDL Cholesterol 06/03/19 06/03/19 06/03/19 04:41 04:41 17:23 WBC 17.5 H RBC MCH 27 L RDW 25.0 H Seg Neuts % (Manual) 96.0 H Lymphocytes % (Manual) 0 L Nucleated RBC % 1.0 H Seg Neutrophils # Man 16.8 H Lymphocytes # (Manual) 0.0 L PT INR POC ABG pH POC ABG pCO2 POC ABG pO2 VBG pH Sodium Chloride Carbon Dioxide 17 L BUN 42 H Glucose 59 L POC Glucose 113 H Lactic Acid Calcium Magnesium Total Bilirubin 7.00 H Direct Bilirubin AST Alkaline Phosphatase 153 H Ammonia Total Creatine Kinase CK-MB (CK-2) CK-MB (CK-2) Rel Index Troponin T NT-Pro-B Natriuret Pep Total Protein 5.9 L Albumin 1.7 L LDL Cholesterol Direct HDL Cholesterol 06/03/19 06/04/19 06/04/19 23:37 05:10 05:10 WBC 16.7 H RBC MCH 27 L RDW 24.5 H Seg Neuts % (Manual) 94.0 H Lymphocytes % (Manual) 3.0 L Nucleated RBC % Seg Neutrophils # Man 15.7 H Lymphocytes # (Manual) 0.5 L PT INR POC ABG pH POC ABG pCO2 POC ABG pO2 VBG pH Sodium Chloride Carbon Dioxide BUN 39 H Glucose 136 H POC Glucose 126 H Lactic Acid Calcium 8.3 L Magnesium 1.30 L Total Bilirubin 7.70 H Direct Bilirubin AST Alkaline Phosphatase 140 H Ammonia Total Creatine Kinase CK-MB (CK-2) CK-MB (CK-2) Rel Index Troponin T NT-Pro-B Natriuret Pep Total Protein 5.6 L Albumin 1.7 L LDL Cholesterol Direct HDL Cholesterol 06/04/19 06/04/19 05:44 13:50 WBC RBC MCH RDW Seg Neuts % (Manual) Lymphocytes % (Manual) Nucleated RBC % Seg Neutrophils # Man Lymphocytes # (Manual) PT INR POC ABG pH POC ABG pCO2 POC ABG pO2 VBG pH Sodium Chloride Carbon Dioxide BUN Glucose POC Glucose 124 H 137 H Lactic Acid Calcium Magnesium Total Bilirubin Direct Bilirubin AST Alkaline Phosphatase Ammonia Total Creatine Kinase CK-MB (CK-2) CK-MB (CK-2) Rel Index Troponin T NT-Pro-B Natriuret Pep Total Protein Albumin LDL Cholesterol Direct HDL Cholesterol Chest x-ray: report reviewed, image reviewed
[2019-06-04] MEDS ORDERED: TOTAL PARENTERAL NUTRITION 1,560 ML IV SCH (20:00)
[2019-06-05 04:42] LABS: Hematocrit 36.8 % (35.5-45.6); Hemoglobin 11.9 gm/dl (11.8-15.2); Mean Corpuscular HGB Conc 32 % (32-34); Mean Corpuscular Volume 84 fl (84-94); Platelet Count 181 K/mm3 (140-440); Red Blood Count 4.36 M/mm3 (3.65-5.03)
[2019-06-05 05:07] LABS: Calcium 7.8 mg/dL (8.4-10.2)
[2019-06-05] MEDS: FUROSEMIDE 40 MG/4 ML INJ IV SCH (05:38)
[2019-06-05] MEDS: MEROPENEM/NS 500 MG/50 ML 500 MG/50 ML BAG IV SCH ×4 (05:39→22:03)
[2019-06-05] MEDS: ARFORMOTEROL 15 MCG/2 ML NEBU IH SCH ×2 (07:43→21:06)
[2019-06-05] MEDS: BUDESONIDE 0.5 MG/2 ML NEBU IH SCH ×2 (07:43→21:06)
--- NOTE | 2019-06-05 08:38 | Progress Note ---
Assessment and Plan Assessment and plan: Patient is a 63 yo man with a history of NICMP, chronic HFrEF 10-15%, NSVT declines LifeVest/AICD, CKD 3, HTN and mod to severe TR, b/l LE wounds, bedbound who presents to [facility] ED with c/o abdominal pain for 3 days. He had multiple bilateral lower extremity wound and stage I to 2 lower extremity ulcer covered with pus. CT abdomen and pelvis suggestive of pneumoperitoneum. General surgery has been consulted and patient was taken for OR for exploratory laparotomy by general surgeon. He also received empiric antibiotics, blood culture wound culture has been ordered. Perforated gastric ulcer. - - General surgery consulted for perforated bowel - s/p exploratory laparotomy, omental patch of perforated gastric ulcer by Dr. Sims, Surgeon, POD 2 - cont empiric abx,cautious IV fluid, may need to start on TPN - NPO now, cont PPI ggt Sepsis with bilateral lower extremity cellulitis/infected ulcer and perforated bowel - Continue empiric antibiotics, obtain blood cultures, wound culture - Wound care consult placed, -ID Physician following bilateral lower extremity cellulitis/infected ulcer - from PVD - cont abx, order arterial duplex of b/l LE and consult Dr. Oakes for evaluation of LE for possible amputation - per Dr Sims Moderate b/l pleural effusion CHFrEF 10-15% - Cardiology consulted - monitor ins/os, daily lasix iv to prevent fluid overload Chronic systolic CHF cardiology following Severe protein calorie malnutrition - nutrition consult, may need TPN CKD stage III, monitor renal function, avoid nephrotoxin - renal function stable Elevated bilirubin, trend LFT Severe metabolic acidosis likely due to perforated bowel - bicarbonate as needed Acute respiratory failure following surgery - CC following, cont nebs, -Extubated this morning 06/05 - Provide GI and DVT prophylaxis CT abdomen: 1. Pneumoperitoneum, possibly due to a ruptured gastric or duodenal ulcer. 2. Bilateral pleural effusions, right greater than left, with generalized edema. The high probability of a clinically significant, sudden or life threatening deterioration of the [CVS, GI] system(s) required my full and direct attention, intervention and personal management. The aggregate critical care time was [34] minutes. This time is in addition to time spent performing reported procedures but includes the following: [X] Data Review and interpretation [X] Patient assessment and monitoring of vital signs [X] Documentation [X] Medication orders and management History Interval history: s/p abdominal surgery Extubated this morning Hospitalist Physical - Physical exam Narrative exam: Gen: Not in acute distress, lying in bed, HEENT: Normocephalic, atraumatic Neck: supple, no JVD Heart: S1 and S2 reg, no murmurs, rubs or gallop Lungs: Clear to auscultation bilaterally, Abd: soft, NT, wound dry, surgical drain, Ext: Dressing over wounds both legs, no cyanosis, swelling both upper and lower ext, Neuro: awake,alert,oriented, moves all ext - Constitutional Vitals: Temp Pulse Resp BP Pulse Ox 98.1 F 109 H 17 115/75 96 06/05/19 04:00 06/05/19 08:21 06/05/19 08:21 06/05/19 08:21 06/05/19 08:21 General appearance: Present: no acute distress Results - Labs CBC & Chem 7: 06/05/19 04:20 06/05/19 04:20 Labs: Laboratory Last Values WBC 15.0 K/mm3 (4.5-11.0) H 06/05/19 04:20 RBC 4.36 M/mm3 (3.65-5.03) 06/05/19 04:20 Hgb 11.9 gm/dl (11.8-15.2) 06/05/19 04:20 Hct 36.8 % (35.5-45.6) 06/05/19 04:20 MCV 84 fl (84-94) 06/05/19 04:20 MCH 27 pg (28-32) L 06/05/19 04:20 MCHC 32 % (32-34) 06/05/19 04:20 RDW 25.0 % (13.2-15.2) H 06/05/19 04:20 Plt Count 181 K/mm3 (140-440) 06/05/19 04:20 Add Manual Diff Complete 06/04/19 05:10 Total Counted 100 06/04/19 05:10 Seg Neutrophils % [employer] 06/04/19 05:10 Seg Neuts % (Manual) 94.0 % (40.0-70.0) H 06/04/19 05:10 Band Neutrophils % 0 % 06/04/19 05:10 Lymphocytes % (Manual) 3.0 % (13.4-35.0) L 06/04/19 05:10 Reactive Lymphs % (Man) 0 % 06/04/19 05:10 Monocytes % (Manual) 2.0 % (0.0-7.3) 06/04/19 05:10 Eosinophils % (Manual) 1.0 % (0.0-4.3) 06/04/19 05:10 Basophils % (Manual) 0 % (0.0-1.8) 06/04/19 05:10 Metamyelocytes % 0 % 06/04/19 05:10 Myelocytes % 0 % 06/04/19 05:10 Promyelocytes % 0 % 06/04/19 05:10 Blast Cells % 0 % 06/04/19 05:10 Nucleated RBC % Not Reportable 06/04/19 05:10 Seg Neutrophils # Man 15.7 K/mm3 (1.8-7.7) H 06/04/19 05:10 Band Neutrophils # 0.0 K/mm3 06/04/19 05:10 Lymphocytes # (Manual) 0.5 K/mm3 (1.2-5.4) L 06/04/19 05:10 Abs React Lymphs (Man) 0.0 K/mm3 06/04/19 05:10 Monocytes # (Manual) 0.3 K/mm3 (0.0-0.8) 06/04/19 05:10 Eosinophils # (Manual) 0.2 K/mm3 (0.0-0.4) 06/04/19 05:10 Basophils # (Manual) 0.0 K/mm3 (0.0-0.1) 06/04/19 05:10 Metamyelocytes # 0.0 K/mm3 06/04/19 05:10 Myelocytes # 0.0 K/mm3 06/04/19 05:10 Promyelocytes # 0.0 K/mm3 06/04/19 05:10 Blast Cells # 0.0 K/mm3 06/04/19 05:10 WBC Morphology Not Reportable 06/04/19 05:10 Hypersegmented Neuts Not Reportable 06/04/19 05:10 Hyposegmented Neuts Not Reportable 06/04/19 05:10 Hypogranular Neuts Not Reportable 06/04/19 05:10 Smudge Cells Not Reportable 06/04/19 05:10 Toxic Granulation Not Reportable 06/04/19 05:10 Toxic Vacuolation Not Reportable 06/04/19 05:10 Dohle Bodies Not Reportable 06/04/19 05:10 Pelger-Huet Anomaly Not Reportable 06/04/19 05:10 Romero Rods Not Reportable 06/04/19 05:10 Platelet Estimate Consistent w auto 06/04/19 05:10 Clumped Platelets Not Reportable 06/04/19 05:10 Plt Clumps, EDTA Not Reportable 06/04/19 05:10 Large Platelets Not Reportable 06/04/19 05:10 Giant Platelets Not Reportable 06/04/19 05:10 Platelet Satelliting Not Reportable 06/04/19 05:10 Plt Morphology Comment Not Reportable 06/04/19 05:10 RBC Morphology Not Reportable 06/04/19 05:10 Dimorphic RBCs Not Reportable 06/04/19 05:10 Polychromasia Not Reportable 06/04/19 05:10 Hypochromasia Few 06/04/19 05:10 Poikilocytosis Not Reportable 06/04/19 05:10 Anisocytosis 1+ 06/04/19 05:10 Microcytosis Not Reportable 06/04/19 05:10 Macrocytosis Not Reportable 06/04/19 05:10 Spherocytes Not Reportable 06/04/19 05:10 Pappenheimer Bodies Not Reportable 06/04/19 05:10 Sickle Cells Not Reportable 06/04/19 05:10 Target Cells 1+ 06/04/19 05:10 Tear Drop Cells Not Reportable 06/04/19 05:10 Ovalocytes Not Reportable 06/04/19 05:10 Helmet Cells Not Reportable 06/04/19 05:10 Grimes-Cook Bodies Not Reportable 06/04/19 05:10 [place] Rings Not Reportable 06/04/19 05:10 [place] Cells Not Reportable 06/04/19 05:10 Bite Cells Not Reportable 06/04/19 05:10 Crenated Cell Not Reportable 06/04/19 05:10 Elliptocytes Not Reportable 06/04/19 05:10 Acanthocytes (Spur) Not Reportable 06/04/19 05:10 Rouleaux Not Reportable 06/04/19 05:10 Hemoglobin C Crystals Not Reportable 06/04/19 05:10 Schistocytes Not Reportable 06/04/19 05:10 Malaria parasites Not Reportable 06/04/19 05:10 Bunny Bodies Not Reportable 06/04/19 05:10 Hem Pathologist Commnt No 06/04/19 05:10 PT 17.9 Sec. (12.2-14.9) H 06/02/19 07:15 INR 1.50 (0.87-1.13) H 06/02/19 07:15 APTT 33.2 Sec. (24.2-36.6) 06/02/19 07:15 POC ABG pH 7.432 (7.35-7.45) 06/05/19 05:39 POC ABG pCO2 38.2 (35-45) 06/05/19 05:39 POC ABG pO2 108 (80-105) H 06/05/19 05:39 POC ABG HCO3 25.5 (22-26 mml/L) 06/05/19 05:39 POC ABG Total CO2 27 (23-27mmol/L) 06/05/19 05:39 POC ABG O2 Sat 98 06/05/19 05:39 POC ABG Base Excess 1 ((-2) - (+3)mmol/L) 06/05/19 05:39 VBG pH 7.310 (7.320-7.420) L 06/02/19 07:15 FiO2 28 % 06/05/19 05:39 Sodium 139 mmol/L (137-145) 06/05/19 04:20 Potassium 3.8 mmol/L (3.6-5.0) 06/05/19 04:20 Chloride 103.5 mmol/L (98-107) 06/05/19 04:20 Carbon Dioxide 23 mmol/L (22-30) 06/05/19 04:20 Anion Gap 16 mmol/L 06/05/19 04:20 BUN 52 mg/dL (9-20) H 06/05/19 04:20 Creatinine 1.3 mg/dL (0.8-1.5) 06/05/19 04:20 Estimated GFR 56 ml/min 06/05/19 04:20 BUN/Creatinine Ratio 40 % 06/05/19 04:20 Glucose 137 mg/dL (75-100) H 06/05/19 04:20 POC Glucose 111 (70-105) H 06/05/19 05:45 Lactic Acid 1.10 mmol/L (0.7-2.0) 06/02/19 09:17 Calcium 7.8 mg/dL (8.4-10.2) L 06/05/19 04:20 Phosphorus 2.50 mg/dL (2.5-4.5) 06/05/19 04:20 Magnesium 1.90 mg/dL (1.7-2.3) 06/05/19 04:20 Total Bilirubin 7.70 mg/dL (0.1-1.2) H 06/04/19 05:10 Direct Bilirubin 4.5 mg/dL (0-0.2) H 06/02/19 07:15 Indirect Bilirubin 1.9 mg/dL 06/02/19 07:15 AST 30 units/L (5-40) 06/04/19 05:10 ALT 29 units/L (7-56) 06/04/19 05:10 Alkaline Phosphatase 140 units/L (35-129) H 06/04/19 05:10 Ammonia 16.0 umol/L (25-60) L 06/02/19 07:15 Total Creatine Kinase 53 units/L (55-170) L 06/02/19 07:15 CK-MB (CK-2) 5.1 ng/mL (0.0-4.0) H 06/02/19 07:15 CK-MB (CK-2) Rel Index 9.6 (0-4) H 06/02/19 07:15 Troponin T 0.065 ng/mL (0.00-0.029) H 06/02/19 07:15 NT-Pro-B Natriuret Pep > 61695 pg/mL (0-900) H 06/02/19 07:15 Total Protein 5.6 g/dL (6.3-8.2) L 06/04/19 05:10 Albumin 1.7 g/dL (3.9-5) L 06/04/19 05:10 Albumin/Globulin Ratio 0.4 % 06/04/19 05:10 Triglycerides 112 mg/dL (2-149) 06/02/19 07:15 Cholesterol 73 mg/dL (50-199) 06/02/19 07:15 LDL Cholesterol Direct 31 mg/dL (50-130) L 06/02/19 07:15 HDL Cholesterol 8 mg/dL (40-59) L 06/02/19 07:15 Cholesterol/HDL Ratio 9.12 % 06/02/19 07:15 Lipase 56 units/L (13-60) 06/02/19 07:15 Urine Color Clarita (Yellow) 06/02/19 10:37 Urine Turbidity Clear (Clear) 06/02/19 10:37 Urine pH 5.0 (5.0-7.0) 06/02/19 10:37 Ur Specific [place] 1.019 (1.003-1.030) 06/02/19 10:37 Urine Protein <15 mg/dl mg/dL (Negative) 06/02/19 10:37 Urine Glucose (UA) 50 mg/dL (Negative) 06/02/19 10:37 Urine Ketones Neg mg/dL (Negative) 06/02/19 10:37 Urine Blood Neg (Negative) 06/02/19 10:37 Urine Nitrite Neg (Negative) 06/02/19 10:37 Urine Bilirubin Neg (Negative) 06/02/19 10:37 Urine Urobilinogen 4.0 mg/dL (<2.0) 06/02/19 10:37 Ur Leukocyte Esterase Neg (Negative) 06/02/19 10:37 Urine WBC (Auto) 2.0 /HPF (0.0-6.0) 06/02/19 10:37 Urine RBC (Auto) 2.0 /HPF (0.0-6.0) 06/02/19 10:37 Urine Bacteria (Auto) 1+ /HPF (Negative) 06/02/19 10:37 Blood Type A POSITIVE 06/02/19 11:55 Antibody Screen Negative 06/02/19 11:55 Active Medications - Current Medications Current Medications: Generic Name Dose Route Start Last Admin Trade Name Freq PRN Reason Stop Dose Admin Albuterol 2.5 mg 06/02/19 11:28 Proventil IH Q4H PRN Shortness Of Breath Arformoterol Tartrate 15 mcg 06/02/19 20:00 06/05/19 07:43 Brovana Nebu IH 15 mcg Q12HRT ROSE Administration Budesonide 0.5 mg 06/02/19 20:00 06/05/19 07:43 Pulmicort IH 0.5 mg Q12HRT ROSE Administration Furosemide 40 mg 06/03/19 13:00 06/05/19 05:38 Lasix IV 40 mg DAILY@0600 ROSE Administration Hydrophilic Ointment 1 applic 06/02/19 14:28 Vaseline Lip Therapy TP Q2HR PRN Dry Lips Propofol 1,000 mg in 100 mls @ 1.656 mls/hr 06/02/19 15:00 06/05/19 05:49 Diprivan 10 Mg/Ml IV 0 mcg/kg/min TITR ROSE 0 mls/hr Titration Protocol 5 MCG/KG/MIN Meropenem 500 mg in 50 mls @ 50 mls/hr 06/02/19 17:00 06/05/19 05:39 Merrem/Ns 500 Mg/50 Ml IV 50 mls/hr Q6H ROSE Administration Vancomycin HCl 1 gm in 250 mls @ 166.667 mls/hr 06/03/19 10:00 06/04/19 11:20 Vancomycin/Ns 1 Gm/250 Ml IV Infused Q24HR ROSE Infusion Fluconazole 200 mls @ 100 mls/hr 06/04/19 13:00 06/04/19 15:00 Diflucan IV Infused Q24HR ROSE Infusion Protocol Amino Acids/Electrolytes/Dextrose 1,560 mls @ 65 mls/hr 06/04/19 20:00 06/04/19 20:27 Tpn Adult IV 06/05/19 19:59 65 mls/hr DAILY@2000 ROSE Administration Protocol Multi-Ingred Cream/Lotion/Oil/Oint 1 applic 06/02/19 14:28 06/04/19 15:23 Artificial Tears Ophth Oint OU 1 applic Q4HR PRN Administration Dry Eye(s) Pantoprazole Sodium 40 mg 06/04/19 10:00 06/04/19 22:30 Protonix IV 40 mg BID ROSE Administration Nutrition/Malnutrition Assess - Dietary Evaluation Nutrition/Malnutrition Findings: Nutrition Notes Start: 06/03/19 11:22 Freq: Status: Active Protocol: Document 06/04/19 11:08 LM (Rec: 06/04/19 11:25 LM [email or web address]) Nutrition Notes Initial or Follow up Reassessment Current Diagnosis CKD(stage I-IV),Decubitus( Pressure Ulcer),Sepsis, Hypertension,Heart Failure Other Pertinent Diagnosis Perforated viscus S/P exp lap Current Diet NPO Labs/Tests BUN 39 BG 136 Mg 1.3 Bili 7.7 Pertinent Medications Lasix Propofol at 1.656 ml/hr ( provides 44 kcal) Height 5 ft 7 in Weight 61.1 kg [place] Body Weight (kg) 67.27 BMI 21.1 Weight change and time frame Wt change noted. Likely due to edema Subjective/Other Information CPN day 1. Pt has TLC. Per MD pt will start TF or clear liquid once extubated. Percent of energy/protein needs met: 33%/98% Burn Absent Trauma Absent GI Symptoms None Current % PO Negligible Minimum of two criteria Yes Body Fat Depletion Mild depletion (non-severe) Muscle Mass Mild Depletion (non-severe) Fluid Accumulation Mild (non-severe) Reduced Vision Mixer Strength Measurably Reduced (severe) #1 Nutrition Diagnosis Malnutrition Diagnosis Progress(for reassessment Continues documentation) Is patient on ventilator? Yes Is Patient Ambulatory and/or Out of Bed No REE-([place]-confined to bed) 1654.668 Kcal/Kg value to use for calculation 26 Approximate Energy Requirements Using 1589 kcal/Kg Calculation Used for Recommendations Kcal/kg Additional Notes Protein needs are 66-110g (1.2 -2g/kg) Fluid needs are 1ml/kcal Nutrition Intervention Change Diet Order: CPN Nutrition Support: CPN at 65 ml/hr: 6.4% dextrose , 5.6% AA, 100 mEq Na, 60 mEq K, 22 mEq Mg, 5 mEq Ca, 10 mmol Phos, MVI, thiamine; 1124 mOsmol Kcal 692 Protein (gm) 88 Carbohydrates (gm) 100 Fat (gm) 0 Fluid (mL) 1,560 Fiber (gm) 0 Goal #1 CPN to meet needs as best as possible Anticipated Discharge Needs: Unable to determine at this time Follow-Up By: 06/05/19 Additional Comments Labs in AM: BMP, Mg, Phos F/U for vent status, diet advancement
--- NOTE | 2019-06-05 09:39 | Progress Note ---
Assessment and Plan - Patient Problems (1) Acute respiratory failure Current Visit: Yes Status: Acute (2) Pleural effusion Current Visit: Yes Status: Acute (3) Pneumoperitoneum Current Visit: Yes Status: Acute (4) Prerenal azotemia Current Visit: Yes Status: Acute (5) Sepsis Current Visit: Yes Status: Acute Qualifiers: Sepsis type: sepsis due to unspecified organism Sepsis acute organ dysfunction status: unspecified Qualified Code(s): A41.9 - Sepsis, unspecified organism (6) CKD (chronic kidney disease) Current Visit: Yes Status: Chronic Qualifiers: (7) Cardiomyopathy Current Visit: Yes Status: Chronic Qualifiers: Cardiomyopathy type: unspecified Qualified Code(s): I42.9 - Cardiomyopathy, unspecified (8) Chronic HFrEF (heart failure with reduced ejection fraction) Current Visit: Yes Status: Chronic (9) Nonischemic cardiomyopathy Current Visit: Yes Status: Chronic (10) PAD (peripheral artery disease) Current Visit: Yes Status: Chronic (11) Pulmonary hypertension Current Visit: Yes Status: Chronic Subjective Principal diagnosis: perforated gastric ulcer Interval history: sp extubation on o2 via nasal canula Objective Vital Signs - 12hr 06/04/19 06/04/19 06/04/19 21:41 21:51 22:00 Temperature Pulse Rate 104 H 105 H 104 H Pulse Rate [ Anterior Bilateral Throughout] Pulse Rate [ From Monitor] Respiratory 16 11 L 16 Rate Respiratory Rate [Anterior Bilateral Throughout] Blood Pressure 113/71 111/70 111/69 O2 Sat by Pulse 100 98 98 Oximetry 06/04/19 06/04/19 06/04/19 22:11 22:21 22:30 Temperature Pulse Rate 105 H 105 H 106 H Pulse Rate [ Anterior Bilateral Throughout] Pulse Rate [ From Monitor] Respiratory 15 19 13 Rate Respiratory Rate [Anterior Bilateral Throughout] Blood Pressure 111/69 110/68 114/71 O2 Sat by Pulse 98 98 99 Oximetry 06/04/19 06/04/19 06/04/19 22:41 22:51 23:00 Temperature Pulse Rate 105 H 103 H 104 H Pulse Rate [ Anterior Bilateral Throughout] Pulse Rate [ From Monitor] Respiratory 16 15 18 Rate Respiratory Rate [Anterior Bilateral Throughout] Blood Pressure 114/71 110/71 111/71 O2 Sat by Pulse 98 99 86 Oximetry 06/04/19 06/04/19 06/04/19 23:11 23:21 23:23 Temperature Pulse Rate 100 H 106 H 106 H Pulse Rate [ Anterior Bilateral Throughout] Pulse Rate [ From Monitor] Respiratory 18 19 17 Rate Respiratory Rate [Anterior Bilateral Throughout] Blood Pressure 111/71 115/69 115/69 O2 Sat by Pulse 96 98 98 Oximetry 06/04/19 06/04/19 06/04/19 23:30 23:41 23:51 Temperature Pulse Rate 109 H 103 H 105 H Pulse Rate [ Anterior Bilateral Throughout] Pulse Rate [ From Monitor] Respiratory 15 16 17 Rate Respiratory Rate [Anterior Bilateral Throughout] Blood Pressure 106/67 106/67 107/67 O2 Sat by Pulse 98 97 98 Oximetry 06/05/19 06/05/19 06/05/19 00:00 00:11 00:21 Temperature 98.5 F Pulse Rate 107 H 111 H 107 H Pulse Rate [ Anterior Bilateral Throughout] Pulse Rate [ 103 H From Monitor] Respiratory 18 18 20 Rate Respiratory Rate [Anterior Bilateral Throughout] Blood Pressure 104/66 107/67 112/65 O2 Sat by Pulse 96 98 98 Oximetry 06/05/19 06/05/19 06/05/19 00:30 00:41 00:51 Temperature Pulse Rate 106 H 105 H 102 H Pulse Rate [ Anterior Bilateral Throughout] Pulse Rate [ From Monitor] Respiratory 18 18 18 Rate Respiratory Rate [Anterior Bilateral Throughout] Blood Pressure 108/69 108/69 112/70 O2 Sat by Pulse 98 96 98 Oximetry 06/05/19 06/05/19 06/05/19 01:00 01:11 01:21 Temperature Pulse Rate 107 H 107 H 106 H Pulse Rate [ Anterior Bilateral Throughout] Pulse Rate [ From Monitor] Respiratory 17 13 15 Rate Respiratory Rate [Anterior Bilateral Throughout] Blood Pressure 111/69 111/69 107/68 O2 Sat by Pulse 98 98 98 Oximetry 06/05/19 06/05/19 06/05/19 01:30 01:41 01:51 Temperature Pulse Rate 106 H 104 H 103 H Pulse Rate [ Anterior Bilateral Throughout] Pulse Rate [ From Monitor] Respiratory 20 20 20 Rate Respiratory Rate [Anterior Bilateral Throughout] Blood Pressure 108/70 108/70 111/70 O2 Sat by Pulse 98 98 97 Oximetry 06/05/19 06/05/19 06/05/19 02:00 02:11 02:21 Temperature Pulse Rate 105 H 102 H 102 H Pulse Rate [ Anterior Bilateral Throughout] Pulse Rate [ From Monitor] Respiratory 20 20 20 Rate Respiratory Rate [Anterior Bilateral Throughout] Blood Pressure 111/69 111/69 106/67 O2 Sat by Pulse 97 99 99 Oximetry 06/05/19 06/05/19 06/05/19 02:30 02:41 02:51 Temperature Pulse Rate 104 H 103 H 103 H Pulse Rate [ Anterior Bilateral Throughout] Pulse Rate [ From Monitor] Respiratory 14 18 21 Rate Respiratory Rate [Anterior Bilateral Throughout] Blood Pressure 107/67 107/67 105/64 O2 Sat by Pulse 98 98 Oximetry 06/05/19 06/05/19 06/05/19 03:00 03:11 03:21 Temperature Pulse Rate 96 H 106 H 107 H Pulse Rate [ Anterior Bilateral Throughout] Pulse Rate [ From Monitor] Respiratory 18 10 L 13 Rate Respiratory Rate [Anterior Bilateral Throughout] Blood Pressure 109/56 109/56 109/67 O2 Sat by Pulse 96 98 98 Oximetry 06/05/19 06/05/19 06/05/19 03:30 03:41 03:51 Temperature Pulse Rate 104 H 106 H 105 H Pulse Rate [ Anterior Bilateral Throughout] Pulse Rate [ From Monitor] Respiratory 15 18 20 Rate Respiratory Rate [Anterior Bilateral Throughout] Blood Pressure 110/70 110/70 113/71 O2 Sat by Pulse 97 99 98 Oximetry 06/05/19 06/05/19 06/05/19 04:00 04:11 04:21 Temperature 98.1 F Pulse Rate 106 H 84 109 H Pulse Rate [ Anterior Bilateral Throughout] Pulse Rate [ 103 H From Monitor] Respiratory 15 20 17 Rate Respiratory Rate [Anterior Bilateral Throughout] Blood Pressure 119/73 119/73 119/73 O2 Sat by Pulse 97 98 98 Oximetry 06/05/19 06/05/19 06/05/19 04:31 04:41 04:51 Temperature Pulse Rate 106 H 108 H 109 H Pulse Rate [ Anterior Bilateral Throughout] Pulse Rate [ From Monitor] Respiratory 20 21 17 Rate Respiratory Rate [Anterior Bilateral Throughout] Blood Pressure 119/73 119/73 119/73 O2 Sat by Pulse 98 98 98 Oximetry 06/05/19 06/05/19 06/05/19 05:00 05:11 05:19 Temperature Pulse Rate 110 H 109 H 110 H Pulse Rate [ Anterior Bilateral Throughout] Pulse Rate [ From Monitor] Respiratory 10 L 11 L Rate Respiratory Rate [Anterior Bilateral Throughout] Blood Pressure 118/73 118/73 118/73 O2 Sat by Pulse 98 98 Oximetry 06/05/19 06/05/19 06/05/19 05:21 05:31 05:41 Temperature Pulse Rate 108 H 108 H 111 H Pulse Rate [ Anterior Bilateral Throughout] Pulse Rate [ From Monitor] Respiratory 20 20 20 Rate Respiratory Rate [Anterior Bilateral Throughout] Blood Pressure 118/73 118/73 118/73 O2 Sat by Pulse 98 97 97 Oximetry 06/05/19 06/05/19 06/05/19 05:51 06:00 06:11 Temperature Pulse Rate 108 H 108 H 113 H Pulse Rate [ Anterior Bilateral Throughout] Pulse Rate [ From Monitor] Respiratory 20 15 13 Rate Respiratory Rate [Anterior Bilateral Throughout] Blood Pressure 118/73 109/67 109/67 O2 Sat by Pulse 97 96 98 Oximetry 06/05/19 06/05/19 06/05/19 06:21 06:31 06:41 Temperature Pulse Rate 112 H 113 H 115 H Pulse Rate [ Anterior Bilateral Throughout] Pulse Rate [ From Monitor] Respiratory 15 16 11 L Rate Respiratory Rate [Anterior Bilateral Throughout] Blood Pressure 109/67 109/67 109/67 O2 Sat by Pulse 98 97 97 Oximetry 06/05/19 06/05/19 06/05/19 06:51 07:00 07:11 Temperature Pulse Rate 113 H 118 H 115 H Pulse Rate [ Anterior Bilateral Throughout] Pulse Rate [ From Monitor] Respiratory 12 24 13 Rate Respiratory Rate [Anterior Bilateral Throughout] Blood Pressure 109/67 117/76 117/76 O2 Sat by Pulse 96 97 98 Oximetry 06/05/19 06/05/19 06/05/19 07:21 07:31 07:41 Temperature Pulse Rate 115 H 118 H 119 H Pulse Rate [ Anterior Bilateral Throughout] Pulse Rate [ From Monitor] Respiratory 16 17 18 Rate Respiratory Rate [Anterior Bilateral Throughout] Blood Pressure 117/76 117/76 117/76 O2 Sat by Pulse 98 98 97 Oximetry 06/05/19 06/05/19 06/05/19 07:43 07:45 07:51 Temperature Pulse Rate 118 H 116 H Pulse Rate [ 119 H Anterior Bilateral Throughout] Pulse Rate [ From Monitor] Respiratory 14 16 Rate Respiratory 15 Rate [Anterior Bilateral Throughout] Blood Pressure 117/76 117/76 O2 Sat by Pulse 97 98 Oximetry 06/05/19 06/05/19 06/05/19 08:00 08:11 08:20 Temperature Pulse Rate 115 H 114 H Pulse Rate [ Anterior Bilateral Throughout] Pulse Rate [ From Monitor] Respiratory 11 L 25 H Rate Respiratory Rate [Anterior Bilateral Throughout] Blood Pressure 115/75 115/75 O2 Sat by Pulse 96 95 96 Oximetry 06/05/19 08:21 Temperature Pulse Rate 109 H Pulse Rate [ Anterior Bilateral Throughout] Pulse Rate [ From Monitor] Respiratory 17 Rate Respiratory Rate [Anterior Bilateral Throughout] Blood Pressure 115/75 O2 Sat by Pulse 96 Oximetry Constitutional: no acute distress, alert Eyes: non-icteric ENT: oropharynx moist, other (ngt in place) Neck: supple Effort: normal Ascultation: Bilateral: clear Cardiovascular: regular rate and rhythm (no mrg) Gastrointestinal: absent bowel sounds, non-tender Integumentary: other (necrotic ulcers lower extremities) Extremities: no cyanosis, edema (1+ generalized edema) Neurologic: normal mental status, non-focal exam Psychiatric: mood appropriate, affect normal CBC and BMP: 06/05/19 04:20 06/05/19 04:20 ABG, PT/INR, D-dimer: ABG POC ABG pH 7.432 (7.35-7.45) 06/05/19 05:39 POC ABG pCO2 38.2 (35-45) 06/05/19 05:39 POC ABG pO2 108 (80-105) H 06/05/19 05:39 POC ABG HCO3 25.5 (22-26 mml/L) 06/05/19 05:39 POC ABG Total CO2 27 (23-27mmol/L) 06/05/19 05:39 POC ABG O2 Sat 98 06/05/19 05:39 PT/INR, D-dimer PT 17.9 Sec. (12.2-14.9) H 06/02/19 07:15 INR 1.50 (0.87-1.13) H 06/02/19 07:15 Abnormal lab findings: Abnormal Labs 06/02/19 06/02/19 06/02/19 07:15 07:15 07:15 WBC 21.0 H RBC 5.17 H MCH 27 L RDW 23.8 H Seg Neuts % (Manual) 97.0 H Lymphocytes % (Manual) 1.0 L Nucleated RBC % 3.0 H Seg Neutrophils # Man 20.4 H Lymphocytes # (Manual) 0.2 L PT 17.9 H INR 1.50 H POC ABG pH POC ABG pCO2 POC ABG pO2 VBG pH Sodium 130 L Chloride 97.1 L Carbon Dioxide 16 L BUN 47 H Glucose 139 H POC Glucose Lactic Acid Calcium Magnesium Total Bilirubin 6.40 H Direct Bilirubin 4.5 H AST 50 H Alkaline Phosphatase 179 H Ammonia Total Creatine Kinase 53 L CK-MB (CK-2) 5.1 H CK-MB (CK-2) Rel Index 9.6 H Troponin T NT-Pro-B Natriuret Pep > 08783 H Total Protein 5.8 L Albumin 2.1 L LDL Cholesterol Direct HDL Cholesterol 06/02/19 06/02/19 06/02/19 07:15 07:15 07:15 WBC RBC MCH RDW Seg Neuts % (Manual) Lymphocytes % (Manual) Nucleated RBC % Seg Neutrophils # Man Lymphocytes # (Manual) PT INR POC ABG pH POC ABG pCO2 POC ABG pO2 VBG pH 7.310 L Sodium Chloride Carbon Dioxide BUN Glucose POC Glucose Lactic Acid 2.40 H* Calcium Magnesium Total Bilirubin Direct Bilirubin AST Alkaline Phosphatase Ammonia 16.0 L Total Creatine Kinase CK-MB (CK-2) CK-MB (CK-2) Rel Index Troponin T NT-Pro-B Natriuret Pep Total Protein Albumin LDL Cholesterol Direct HDL Cholesterol 06/02/19 06/02/19 06/02/19 07:15 15:33 15:53 WBC RBC MCH RDW Seg Neuts % (Manual) Lymphocytes % (Manual) Nucleated RBC % Seg Neutrophils # Man Lymphocytes # (Manual) PT INR POC ABG pH 7.229 L POC ABG pCO2 49.5 H POC ABG pO2 VBG pH Sodium Chloride Carbon Dioxide BUN Glucose POC Glucose 66 L Lactic Acid Calcium Magnesium Total Bilirubin Direct Bilirubin AST Alkaline Phosphatase Ammonia Total Creatine Kinase CK-MB (CK-2) CK-MB (CK-2) Rel Index Troponin T 0.065 H NT-Pro-B Natriuret Pep Total Protein Albumin LDL Cholesterol Direct 31 L HDL Cholesterol 8 L 06/02/19 06/02/19 06/03/19 16:40 17:10 04:06 WBC RBC MCH RDW Seg Neuts % (Manual) Lymphocytes % (Manual) Nucleated RBC % Seg Neutrophils # Man Lymphocytes # (Manual) PT INR POC ABG pH 7.259 L POC ABG pCO2 33.9 L POC ABG pO2 221 H 146 H VBG pH Sodium Chloride Carbon Dioxide BUN Glucose POC Glucose 151 H Lactic Acid Calcium Magnesium Total Bilirubin Direct Bilirubin AST Alkaline Phosphatase Ammonia Total Creatine Kinase CK-MB (CK-2) CK-MB (CK-2) Rel Index Troponin T NT-Pro-B Natriuret Pep Total Protein Albumin LDL Cholesterol Direct HDL Cholesterol 06/03/19 06/03/19 06/03/19 04:41 04:41 17:23 WBC 17.5 H RBC MCH 27 L RDW 25.0 H Seg Neuts % (Manual) 96.0 H Lymphocytes % (Manual) 0 L Nucleated RBC % 1.0 H Seg Neutrophils # Man 16.8 H Lymphocytes # (Manual) 0.0 L PT INR POC ABG pH POC ABG pCO2 POC ABG pO2 VBG pH Sodium Chloride Carbon Dioxide 17 L BUN 42 H Glucose 59 L POC Glucose 113 H Lactic Acid Calcium Magnesium Total Bilirubin 7.00 H Direct Bilirubin AST Alkaline Phosphatase 153 H Ammonia Total Creatine Kinase CK-MB (CK-2) CK-MB (CK-2) Rel Index Troponin T NT-Pro-B Natriuret Pep Total Protein 5.9 L Albumin 1.7 L LDL Cholesterol Direct HDL Cholesterol 06/03/19 06/04/19 06/04/19 23:37 05:10 05:10 WBC 16.7 H RBC MCH 27 L RDW 24.5 H Seg Neuts % (Manual) 94.0 H Lymphocytes % (Manual) 3.0 L Nucleated RBC % Seg Neutrophils # Man 15.7 H Lymphocytes # (Manual) 0.5 L PT INR POC ABG pH POC ABG pCO2 POC ABG pO2 VBG pH Sodium Chloride Carbon Dioxide BUN 39 H Glucose 136 H POC Glucose 126 H Lactic Acid Calcium 8.3 L Magnesium 1.30 L Total Bilirubin 7.70 H Direct Bilirubin AST Alkaline Phosphatase 140 H Ammonia Total Creatine Kinase CK-MB (CK-2) CK-MB (CK-2) Rel Index Troponin T NT-Pro-B Natriuret Pep Total Protein 5.6 L Albumin 1.7 L LDL Cholesterol Direct HDL Cholesterol 06/04/19 06/04/19 06/04/19 05:44 13:50 18:05 WBC RBC MCH RDW Seg Neuts % (Manual) Lymphocytes % (Manual) Nucleated RBC % Seg Neutrophils # Man Lymphocytes # (Manual) PT INR POC ABG pH POC ABG pCO2 POC ABG pO2 VBG pH Sodium Chloride Carbon Dioxide BUN Glucose POC Glucose 124 H 137 H 120 H Lactic Acid Calcium Magnesium Total Bilirubin Direct Bilirubin AST Alkaline Phosphatase Ammonia Total Creatine Kinase CK-MB (CK-2) CK-MB (CK-2) Rel Index Troponin T NT-Pro-B Natriuret Pep Total Protein Albumin LDL Cholesterol Direct HDL Cholesterol 06/05/19 06/05/19 06/05/19 00:58 04:20 04:20 WBC 15.0 H RBC MCH 27 L RDW 25.0 H Seg Neuts % (Manual) Lymphocytes % (Manual) Nucleated RBC % Seg Neutrophils # Man Lymphocytes # (Manual) PT INR POC ABG pH POC ABG pCO2 POC ABG pO2 VBG pH Sodium Chloride Carbon Dioxide BUN 52 H Glucose 137 H POC Glucose 114 H Lactic Acid Calcium 7.8 L Magnesium Total Bilirubin Direct Bilirubin AST Alkaline Phosphatase Ammonia Total Creatine Kinase CK-MB (CK-2) CK-MB (CK-2) Rel Index Troponin T NT-Pro-B Natriuret Pep Total Protein Albumin LDL Cholesterol Direct HDL Cholesterol 06/05/19 06/05/19 05:39 05:45 WBC RBC MCH RDW Seg Neuts % (Manual) Lymphocytes % (Manual) Nucleated RBC % Seg Neutrophils # Man Lymphocytes # (Manual) PT INR POC ABG pH POC ABG pCO2 POC ABG pO2 108 H VBG pH Sodium Chloride Carbon Dioxide BUN Glucose POC Glucose 111 H Lactic Acid Calcium Magnesium Total Bilirubin Direct Bilirubin AST Alkaline Phosphatase Ammonia Total Creatine Kinase CK-MB (CK-2) CK-MB (CK-2) Rel Index Troponin T NT-Pro-B Natriuret Pep Total Protein Albumin LDL Cholesterol Direct HDL Cholesterol
[2019-06-05] MEDS: PANTOPRAZOLE 40 MG INJ IV SCH ×2 (09:45→22:03)
[2019-06-05] MEDS: VANCOMYCIN/NS 1 GM/250 ML 1 GM/250 ML BAG IV SCH (09:45)
[2019-06-05] MEDS: FLUCONAZOLE 400 MG 200 ML IV SCH (09:45)
--- NOTE | 2019-06-05 10:01 | Progress Note ---
Assessment and Plan 63 yo M s/p exploratory laparotomy, omental patch of perforated gastric ulcer POD 3 1. sepsis 2. perforated gastric ulcer 3. severe malnutrition 4. b/l pleural effusions 5. bedbound 6. infected b/l LE wounds with likely chronic limb ischemia 7. cardiomyopathy 8. CHF Arterial duplex - no Plan: 1. Neuro - off sedation. If extubated can start dilaudid IV prn 2. CV - BP and HR stable. Cardiology on board 3. Resp - on vent. Management per ICU team, wean as tolerated. ?extubate today 4. GI - strict NPO, TPN. TANESHA drain to bulb suction - monitor output. Protonix BID. NGT to LIWS - DO NOT REMOVE, MANIPULATE, FLUSH, OR USE FOR MEDS. Will obtain UGI today if extubated and if repair is intact, will start TF or clear liquid diet (if extubated). 5. Endo - Blood glucose monitoring per protocol 6. ID - intraop cultures prelim - janeth. Lower extremity wound cx prelim - gram neg. Continue abx per ID. Multiple infected wounds of LE - continue wound care per fishing gear mechanic 7. IVETTE garcia for strict I/Os. 8. Musc - DVT ppx. Offloading. consult Dr. Oakes for evaluation of LE for d ebridement vs amputation. Dr. Issa rounding Carter 06/06/19 to 06/09/19. Thank you, please call with questions. Subjective Date of service: 06/05/19 Narrative: Pt seen and examined. On vent but awake and alert. Asking for water. NO overnight events. No f/c. Unable to extubate yesterday despite excellent parameters due to episodes of apnea. Objective Vital Signs - 12hr 06/04/19 06/04/19 06/04/19 22:00 22:11 22:21 Temperature Pulse Rate 104 H 105 H 105 H Pulse Rate [ Anterior Bilateral Throughout] Pulse Rate [ From Monitor] Respiratory 16 15 19 Rate Respiratory Rate [Anterior Bilateral Throughout] Blood Pressure 111/69 111/69 110/68 O2 Sat by Pulse 98 98 98 Oximetry 06/04/19 06/04/19 06/04/19 22:30 22:41 22:51 Temperature Pulse Rate 106 H 105 H 103 H Pulse Rate [ Anterior Bilateral Throughout] Pulse Rate [ From Monitor] Respiratory 13 16 15 Rate Respiratory Rate [Anterior Bilateral Throughout] Blood Pressure 114/71 114/71 110/71 O2 Sat by Pulse 99 98 99 Oximetry 06/04/19 06/04/19 06/04/19 23:00 23:11 23:21 Temperature Pulse Rate 104 H 100 H 106 H Pulse Rate [ Anterior Bilateral Throughout] Pulse Rate [ From Monitor] Respiratory 18 18 19 Rate Respiratory Rate [Anterior Bilateral Throughout] Blood Pressure 111/71 111/71 115/69 O2 Sat by Pulse 86 96 98 Oximetry 06/04/19 06/04/19 06/04/19 23:23 23:30 23:41 Temperature Pulse Rate 106 H 109 H 103 H Pulse Rate [ Anterior Bilateral Throughout] Pulse Rate [ From Monitor] Respiratory 17 15 16 Rate Respiratory Rate [Anterior Bilateral Throughout] Blood Pressure 115/69 106/67 106/67 O2 Sat by Pulse 98 98 97 Oximetry 06/04/19 06/05/19 06/05/19 23:51 00:00 00:11 Temperature 98.5 F Pulse Rate 105 H 107 H 111 H Pulse Rate [ Anterior Bilateral Throughout] Pulse Rate [ 103 H From Monitor] Respiratory 17 18 18 Rate Respiratory Rate [Anterior Bilateral Throughout] Blood Pressure 107/67 104/66 107/67 O2 Sat by Pulse 98 96 98 Oximetry 06/05/19 06/05/19 06/05/19 00:21 00:30 00:41 Temperature Pulse Rate 107 H 106 H 105 H Pulse Rate [ Anterior Bilateral Throughout] Pulse Rate [ From Monitor] Respiratory 20 18 18 Rate Respiratory Rate [Anterior Bilateral Throughout] Blood Pressure 112/65 108/69 108/69 O2 Sat by Pulse 98 98 96 Oximetry 06/05/19 06/05/19 06/05/19 00:51 01:00 01:11 Temperature Pulse Rate 102 H 107 H 107 H Pulse Rate [ Anterior Bilateral Throughout] Pulse Rate [ From Monitor] Respiratory 18 17 13 Rate Respiratory Rate [Anterior Bilateral Throughout] Blood Pressure 112/70 111/69 111/69 O2 Sat by Pulse 98 98 98 Oximetry 06/05/19 06/05/19 06/05/19 01:21 01:30 01:41 Temperature Pulse Rate 106 H 106 H 104 H Pulse Rate [ Anterior Bilateral Throughout] Pulse Rate [ From Monitor] Respiratory 15 20 20 Rate Respiratory Rate [Anterior Bilateral Throughout] Blood Pressure 107/68 108/70 108/70 O2 Sat by Pulse 98 98 98 Oximetry 06/05/19 06/05/19 06/05/19 01:51 02:00 02:11 Temperature Pulse Rate 103 H 105 H 102 H Pulse Rate [ Anterior Bilateral Throughout] Pulse Rate [ From Monitor] Respiratory 20 20 20 Rate Respiratory Rate [Anterior Bilateral Throughout] Blood Pressure 111/70 111/69 111/69 O2 Sat by Pulse 97 97 99 Oximetry 06/05/19 06/05/19 06/05/19 02:21 02:30 02:41 Temperature Pulse Rate 102 H 104 H 103 H Pulse Rate [ Anterior Bilateral Throughout] Pulse Rate [ From Monitor] Respiratory 20 14 18 Rate Respiratory Rate [Anterior Bilateral Throughout] Blood Pressure 106/67 107/67 107/67 O2 Sat by Pulse 99 98 Oximetry 06/05/19 06/05/19 06/05/19 02:51 03:00 03:11 Temperature Pulse Rate 103 H 96 H 106 H Pulse Rate [ Anterior Bilateral Throughout] Pulse Rate [ From Monitor] Respiratory 21 18 10 L Rate Respiratory Rate [Anterior Bilateral Throughout] Blood Pressure 105/64 109/56 109/56 O2 Sat by Pulse 98 96 98 Oximetry 06/05/19 06/05/19 06/05/19 03:21 03:30 03:41 Temperature Pulse Rate 107 H 104 H 106 H Pulse Rate [ Anterior Bilateral Throughout] Pulse Rate [ From Monitor] Respiratory 13 15 18 Rate Respiratory Rate [Anterior Bilateral Throughout] Blood Pressure 109/67 110/70 110/70 O2 Sat by Pulse 98 97 99 Oximetry 06/05/19 06/05/19 06/05/19 03:51 04:00 04:11 Temperature 98.1 F Pulse Rate 105 H 106 H 84 Pulse Rate [ Anterior Bilateral Throughout] Pulse Rate [ 103 H From Monitor] Respiratory 20 15 20 Rate Respiratory Rate [Anterior Bilateral Throughout] Blood Pressure 113/71 119/73 119/73 O2 Sat by Pulse 98 97 98 Oximetry 06/05/19 06/05/19 06/05/19 04:21 04:31 04:41 Temperature Pulse Rate 109 H 106 H 108 H Pulse Rate [ Anterior Bilateral Throughout] Pulse Rate [ From Monitor] Respiratory 17 20 21 Rate Respiratory Rate [Anterior Bilateral Throughout] Blood Pressure 119/73 119/73 119/73 O2 Sat by Pulse 98 98 98 Oximetry 06/05/19 06/05/19 06/05/19 04:51 05:00 05:11 Temperature Pulse Rate 109 H 110 H 109 H Pulse Rate [ Anterior Bilateral Throughout] Pulse Rate [ From Monitor] Respiratory 17 10 L 11 L Rate Respiratory Rate [Anterior Bilateral Throughout] Blood Pressure 119/73 118/73 118/73 O2 Sat by Pulse 98 98 Oximetry 06/05/19 06/05/19 06/05/19 05:19 05:21 05:31 Temperature Pulse Rate 110 H 108 H 108 H Pulse Rate [ Anterior Bilateral Throughout] Pulse Rate [ From Monitor] Respiratory 20 20 Rate Respiratory Rate [Anterior Bilateral Throughout] Blood Pressure 118/73 118/73 118/73 O2 Sat by Pulse 98 98 97 Oximetry 06/05/19 06/05/19 06/05/19 05:41 05:51 06:00 Temperature Pulse Rate 111 H 108 H 108 H Pulse Rate [ Anterior Bilateral Throughout] Pulse Rate [ From Monitor] Respiratory 20 20 15 Rate Respiratory Rate [Anterior Bilateral Throughout] Blood Pressure 118/73 118/73 109/67 O2 Sat by Pulse 97 97 96 Oximetry 06/05/19 06/05/19 06/05/19 06:11 06:21 06:31 Temperature Pulse Rate 113 H 112 H 113 H Pulse Rate [ Anterior Bilateral Throughout] Pulse Rate [ From Monitor] Respiratory 13 15 16 Rate Respiratory Rate [Anterior Bilateral Throughout] Blood Pressure 109/67 109/67 109/67 O2 Sat by Pulse 98 98 97 Oximetry 06/05/19 06/05/19 06/05/19 06:41 06:51 07:00 Temperature Pulse Rate 115 H 113 H 118 H Pulse Rate [ Anterior Bilateral Throughout] Pulse Rate [ From Monitor] Respiratory 11 L 12 24 Rate Respiratory Rate [Anterior Bilateral Throughout] Blood Pressure 109/67 109/67 117/76 O2 Sat by Pulse 97 96 97 Oximetry 06/05/19 06/05/19 06/05/19 07:11 07:21 07:31 Temperature Pulse Rate 115 H 115 H 118 H Pulse Rate [ Anterior Bilateral Throughout] Pulse Rate [ From Monitor] Respiratory 13 16 17 Rate Respiratory Rate [Anterior Bilateral Throughout] Blood Pressure 117/76 117/76 117/76 O2 Sat by Pulse 98 98 98 Oximetry 06/05/19 06/05/19 06/05/19 07:41 07:43 07:45 Temperature Pulse Rate 119 H 118 H Pulse Rate [ 119 H Anterior Bilateral Throughout] Pulse Rate [ From Monitor] Respiratory 18 14 Rate Respiratory 15 Rate [Anterior Bilateral Throughout] Blood Pressure 117/76 117/76 O2 Sat by Pulse 97 97 Oximetry 06/05/19 06/05/19 06/05/19 07:51 08:00 08:11 Temperature Pulse Rate 116 H 115 H 114 H Pulse Rate [ Anterior Bilateral Throughout] Pulse Rate [ From Monitor] Respiratory 16 11 L 25 H Rate Respiratory Rate [Anterior Bilateral Throughout] Blood Pressure 117/76 115/75 115/75 O2 Sat by Pulse 98 96 95 Oximetry 06/05/19 06/05/19 08:20 08:21 Temperature Pulse Rate 109 H Pulse Rate [ Anterior Bilateral Throughout] Pulse Rate [ From Monitor] Respiratory 17 Rate Respiratory Rate [Anterior Bilateral Throughout] Blood Pressure 115/75 O2 Sat by Pulse 96 96 Oximetry - General physical appearance Narrative Exam: Gen: Awake on vent. Following commands ENT: ETT in place. NGT with scant clear brown drainage CV: s1, S2+ tachy Resp; on vent Abd: soft, ND, minimal incisional TTP. No r/r/g. Incision c/d/i. TANESHA drain serous Ext: + edema. Bruising of both hands. LE wounds with dressings in place - Labs 06/05/19 04:20 06/05/19 04:20 Diabetes panel 06/05/19 Range/Units 04:20 Sodium 139 (137-145) mmol/L Potassium 3.8 (3.6-5.0) mmol/L Chloride 103.5 (98-107) mmol/L Carbon Dioxide 23 (22-30) mmol/L BUN 52 H (9-20) mg/dL Creatinine 1.3 (0.8-1.5) mg/dL Glucose 137 H (75-100) mg/dL Calcium 7.8 L (8.4-10.2) mg/dL Calcium panel 06/05/19 Range/Units 04:20 Calcium 7.8 L (8.4-10.2) mg/dL Phosphorus 2.50 (2.5-4.5) mg/dL Pituitary panel 06/05/19 Range/Units 04:20 Sodium 139 (137-145) mmol/L Potassium 3.8 (3.6-5.0) mmol/L Chloride 103.5 (98-107) mmol/L Carbon Dioxide 23 (22-30) mmol/L BUN 52 H (9-20) mg/dL Creatinine 1.3 (0.8-1.5) mg/dL Glucose 137 H (75-100) mg/dL Calcium 7.8 L (8.4-10.2) mg/dL Adrenal panel 06/05/19 Range/Units 04:20 Sodium 139 (137-145) mmol/L Potassium 3.8 (3.6-5.0) mmol/L Chloride 103.5 (98-107) mmol/L Carbon Dioxide 23 (22-30) mmol/L BUN 52 H (9-20) mg/dL Creatinine 1.3 (0.8-1.5) mg/dL Glucose 137 H (75-100) mg/dL Calcium 7.8 L (8.4-10.2) mg/dL
--- NOTE | 2019-06-05 10:25 | Progress Note ---
Assessment and Plan Pt has been extubated. He appears alert and oriented. S/p patch of perforated gastric ulcer on 06/02. He remains strict NPO. Currently stable cardiac status. Resume home cardiac regimen once PO intake is resumed. He is noted to have bouts of NSVT on telemetry. He has known NICMP and is followed in our office by Dr. Alatorre. He has chronically declined LifeVest and/or AICD. Monitor electrolyses and cont to observe on telemetry. The patient has been seen in conjunction with Dr. Mason who agrees with the assessment and plan of care. - Patient Problems (1) Pneumoperitoneum Current Visit: Yes Status: Acute (2) Sepsis Current Visit: Yes Status: Acute Qualifiers: Sepsis type: sepsis due to unspecified organism Sepsis acute organ dysfunction status: unspecified Qualified Code(s): A41.9 - Sepsis, unspecified organism (3) Chronic HFrEF (heart failure with reduced ejection fraction) Current Visit: Yes Status: Chronic (4) Nonischemic cardiomyopathy Current Visit: Yes Status: Chronic (5) Sinus node dysfunction Current Visit: Yes Status: Chronic (6) NSVT (nonsustained ventricular tachycardia) Current Visit: Yes Status: Chronic (7) HTN (hypertension) Current Visit: Yes Status: Chronic Qualifiers: Hypertension type: essential hypertension Qualified Code(s): I10 - Essential (primary) hypertension (8) Pulmonary hypertension Current Visit: Yes Status: Chronic (9) PAD (peripheral artery disease) Current Visit: Yes Status: Chronic Subjective Date of service: 06/05/19 Principal diagnosis: perforated gastric ulcer Interval history: pt has been extubated, alert and oriented. remains strict NPO. in SR, no acute events noted overnight. no family at bedside. Objective Last Vital Signs Temp 98.1 F 06/05/19 04:00 Pulse 109 H 06/05/19 08:21 Resp 17 06/05/19 08:21 BP 115/75 06/05/19 08:21 Pulse Ox 96 06/05/19 08:21 - Physical Examination General: No Apparent Distress HEENT: Positive: EOMI, Normocephaly, Mucus Membranes Moist Neck: Positive: neck supple, trachea midline, Carotid Upstroke (full) Cardiac: Positive: Reg Rate and Rhythm, S1/S2 Lungs: Positive: Decreased Breath Sounds Neuro: Positive: Grossly Intact Abdomen: Positive: Soft Skin: Positive: Other (multiple wounds on both lower extremities with areas of ischemic ulceration. jaundiced) Musculoskeletal: Normal Range of Motion Extremities: Present: +1 Edema (bilateral leg and feet) - Labs and Meds CBC 06/05/19 Range/Units 04:20 WBC 15.0 H (4.5-11.0) K/mm3 RBC 4.36 (3.65-5.03) M/mm3 Hgb 11.9 (11.8-15.2) gm/dl Hct 36.8 (35.5-45.6) % Plt Count 181 (140-440) K/mm3 Comprehensive Metabolic Panel 06/05/19 Range/Units 04:20 Sodium 139 (137-145) mmol/L Potassium 3.8 (3.6-5.0) mmol/L Chloride 103.5 (98-107) mmol/L Carbon Dioxide 23 (22-30) mmol/L BUN 52 H (9-20) mg/dL Creatinine 1.3 (0.8-1.5) mg/dL Glucose 137 H (75-100) mg/dL Calcium 7.8 L (8.4-10.2) mg/dL - Imaging and Cardiology EKG: image reviewed Echo: report reviewed (02/28/19 showed EF of 10-15%, dilation of all chambers, moderate AR, moderate to severe TR and RV hypokinesis. ) Cardiac cath: report reviewed (04/2017 showed patent coronaries, EF 10-15%. ) - Telemetry EKG Rhythm: Sinus Rhythm - EKG Sinus rhythms and dysrhythmias: sinus rhythm Chamber hypertrophy or enlargement: left ventricular hypertro Repolarization changes or abnormalities: repolarization abn secondary to ventricular hypertrophy Myocardial infarction: septal ND (old age or ind
[2019-06-05] MEDS: IPRATROPIUM/ALBUTEROL SULFATE 3 ML AMPUL.NEB IH SCH ×3 (11:45→21:06)
[2019-06-05] MEDS: HYDROmorphone 1 MG/1 ML INJ IV PRN (12:37)
--- NOTE | 2019-06-05 13:11 | Progress Note ---
Assessment and Plan Cultures Blood culture 06/02/19 no growth to date Urine culture 06/02/19 no growth to date Surgical culture 06/02/19 Suni albicans Wound culture right foot 06/02/2019 - PsA, Morganella wound culture left foot 06/03/19 - GNR 1 and 2 Assessment: 63 yo M significant cardiac PMHx, chronic bilateral wounds admitted with small perforated gastric ulcer. 1. Acute sepsis -present with tachycardia, leukocytosis. Likely secondary to perforated gastric ulcer vs infected chronic wounds 2. Infected bilateral infected wounds - his wounds are markedly worse than previous, even before considering how purulent they are. Comparing to the recent pictures from his March admission, there is considerable necrosis and purulence. I have severe concern for the viability of these limbs. Surgery is already on board, recommend they evaluate the legs for debridment vs amputation. Would get culture of pus. Continue antibiotics pending results. Recs: - continue meropenem 500mg q6h - continue vancomycin with pharmacy dosing, Goal trough 15-20. Can likely de- escalate pending finalization of culture - follow up surgical recommendations of leg wounds. Dr. Oakes was consulted for possible amputation. - Suni in abdomen not surprising, however will add fluconazole 400mg q24h. Monitor QTc while on fluconazole given cardiac history. [facility] M: [phone] O: [phone] F: [phone] Subjective Date of service: 06/05/19 Principal diagnosis: perforated gastric ulcer Interval history: Remains intubated and sedated Objective - Exam Narrative Exam: General Intubated, sedated Eyes - PERRLA, EOM intact ENT - Moist mucous membranes, no lymphadenopathy Neck - No noticeable or palpable swelling, redness or rash around throat or on face Lymph Nodes - No lymphadenopathy Cardiovascular - RRR no m/r/g, no JVD, no carotid bruits Lungs - Clear to auscultation, no use of accessory muscles, no crackles or wheezes. Skin - Bilateral LE wounds, both feet under gauze. Noted pictures in chart. Abdomen - Normal bowel sounds, abdomen soft and nontender Extremities - No edema, cyanosis or clubbing Musculoskeletal - Sedated Neurological Sedated - Constitutional Vitals: Vital Signs Temp Pulse Resp BP Pulse Ox 98 F 105 H 23 113/72 98 06/05/19 12:00 06/05/19 12:00 06/05/19 12:37 06/05/19 11:31 06/05/19 12:00 Temperature -Last 24 Hours Temperature 98 F Temperature 97.9 F Temperature 98.1 F Temperature 98.5 F Temperature 98.6 F Temperature 97.8 F - Labs CBC & Chem 7: 06/05/19 04:20 06/05/19 04:20 Labs: Abnormal lab results 06/04/19 06/04/19 06/05/19 Range/Units 13:50 18:05 00:58 WBC (4.5-11.0) K/mm3 MCH (28-32) pg RDW (13.2-15.2) % POC ABG pO2 (80-105) BUN (9-20) mg/dL Glucose (75-100) mg/dL POC Glucose 137 H 120 H 114 H (70-105) Calcium (8.4-10.2) mg/dL Vancomycin Trough (5.0-20.0) ug/mL 06/05/19 06/05/19 06/05/19 Range/Units 04:20 04:20 05:39 WBC 15.0 H (4.5-11.0) K/mm3 MCH 27 L (28-32) pg RDW 25.0 H (13.2-15.2) % POC ABG pO2 108 H (80-105) BUN 52 H (9-20) mg/dL Glucose 137 H (75-100) mg/dL POC Glucose (70-105) Calcium 7.8 L (8.4-10.2) mg/dL Vancomycin Trough (5.0-20.0) ug/mL 06/05/19 06/05/19 Range/Units 05:45 09:45 WBC (4.5-11.0) K/mm3 MCH (28-32) pg RDW (13.2-15.2) % POC ABG pO2 (80-105) BUN (9-20) mg/dL Glucose (75-100) mg/dL POC Glucose 111 H (70-105) Calcium (8.4-10.2) mg/dL Vancomycin Trough 20.1 H (5.0-20.0) ug/mL
--- NOTE | 2019-06-05 13:22 | Consultation ---
History of Present Illness Consult date: 06/05/19 - History of present illness History of present illness: 63 yo male s/p recent [place] patch for perforated . Asked to see pt re BLE wounds. No h/o DM. He states he was ambulatory as recently as 2 months ago. Pt was extubated today. Past History Past Medical History: arrhythmia (NSVT, sinus pauses), heart failure (chronic HFrEF), hypertension, renal failure (JOHN), other ( Normal coronaries 04/25.) Past Surgical History: cataract removal, Other (surgery for renal stones.) Social history: lives with family, alcohol abuse Family history: diabetes. denies: CAD Medications and Allergies Allergies Allergy/AdvReac Type Severity Reaction Status Date / Time venom-honey bee Allergy Hives Verified 04/03/19 10:10 [bee venom (honey bee)] morphine AdvReac Unknown Verified 04/03/19 10:10 Penicillins AdvReac Nausea Verified 04/08/19 08:57 Home Medications Medication Instructions Recorded Confirmed Last Taken Type traMADoL [Ultram 50 MG tab] 50 mg PO Q6HR PRN #12 tablet 03/25/19 06/03/19 03/30/19 Rx ALBUTEROL Inhaler (OR & NICU) 2 puff IH QID PRN #2 inha 04/08/19 06/03/19 Unknown Rx [ProAir HFA Inhaler] ALBUTEROL NEB's [Proventil 0.083% 2.5 mg IH QIDRT PRN #30 nebu 04/08/19 06/03/19 Unknown Rx NEBS] Aspirin EC [Halfprin EC] 81 mg PO DAILY #30 04/08/19 06/03/19 03/30/19 Rx Azithromycin [Zithromax TAB] 2 tab PO QDAY #2 tablet 04/08/19 06/03/19 Unknown Rx Budesonide/Formoterol Fumarate 2 puff IH BID #1 unit 04/08/19 06/03/19 Unknown Rx [Symbicort 160-4.5 Mcg Inhaler] Furosemide [Lasix TAB] 40 mg PO DAILY@0600 #30 tablet 04/08/19 06/03/19 Unknown Rx Spironolactone [Aldactone] 50 mg PO QDAY #30 tablet 04/08/19 06/03/19 Unknown Rx carvediloL [Coreg] 3.125 mg PO BID #60 tablet 04/08/19 06/03/19 Unknown Rx cefUROXime [Ceftin] 2 tab PO BID #8 tablet 04/08/19 06/03/19 Unknown Rx Active Meds: Active Medications Albuterol (Proventil) 2.5 mg IH Q4H PRN PRN Reason: Shortness Of Breath Albuterol/Ipratropium (Duoneb *Not For Prn Use*) 1 ampul IH QIDRT [facility] Last Admin: 06/05/19 11:45 Dose: 1 ampul Documented by: Arformoterol Tartrate (Brovana Nebu) 15 mcg IH Q12HRT [facility] Last Admin: 06/05/19 07:43 Dose: 15 mcg Documented by: Budesonide (Pulmicort) 0.5 mg IH Q12HRT [facility] Last Admin: 06/05/19 07:43 Dose: 0.5 mg Documented by: Furosemide (Lasix) 40 mg IV DAILY@0600 [facility] Last Admin: 06/05/19 05:38 Dose: 40 mg Documented by: Hydromorphone HCl (Dilaudid) 0.25 mg IV Q3H PRN PRN Reason: Pain , Severe (7-10) Last Admin: 06/05/19 12:37 Dose: 0.25 mg Documented by: Meropenem (Merrem/Ns 500 Mg/50 Ml) 500 mg in 50 mls @ 50 mls/hr IV Q6H [facility] Last Admin: 06/05/19 11:51 Dose: 50 mls/hr Documented by: Fluconazole (Diflucan) 200 mls @ 100 mls/hr IV Q24HR [facility]; Protocol Last Admin: 06/05/19 09:45 Dose: 100 mls/hr Documented by: Amino Acids/Electrolytes/Dextrose (Tpn Adult) 1,560 mls @ 65 mls/hr IV DAILY@1999 [facility]; Protocol Stop: 06/05/19 19:59 Last Admin: 06/04/19 20:27 Dose: 65 mls/hr Documented by: Vancomycin HCl 750 mg/ Sodium (Chloride) 265 mls @ 166.667 mls/hr IV Q24HR [facility] Amino Acids/Electrolytes/Dextrose (Tpn Adult) 1,560 mls @ 65 mls/hr IV DAILY@1999 [facility]; Protocol Stop: 06/06/19 19:59 Pantoprazole Sodium (Protonix) 40 mg IV BID [facility] Last Admin: 06/05/19 09:45 Dose: 40 mg Documented by: Review of Systems All systems: negative (none) Exam Vital Signs Temp Pulse Resp BP Pulse Ox 97.8 F 88 20 124/88 10 L 06/02/19 06:55 06/02/19 06:55 06/02/19 06:55 06/02/19 06:55 06/02/19 06:55 - General physical appearance Positive: well developed, well nourished, no distress - Eyes Positive: PERRL, normal occular movement - ENT Positive: normal pinna, normal nares, normal mucosa, no hearing loss, no congestion - Neck Positive: no masses, no bruits, trachea midline, no venous distension - Respiratory Positive: normal expansion, normal respiratory effort, clear to auscultation - Cardiovascular Rhythm: regular Heart Sounds: Present: S1 & S2. Absent: rub, click - Breasts Breasts: deferred - Abdomen Abdomen: Present: soft, bowel sounds normal. Absent: tender, distended Hernia: none - Genitourinary Male Genitourinary: deferred - Integumentary other (Pt has multiple large ulcerations of his bilateral legs and dorsal feet. The dry eschar on the right foot has underlying fluctuance and there is questionable fluctuance under the dry eschar on the dorsal left foot.) - Neurologic Neurologic: alert and oriented to time, place and person, motor strength and sensation are grossly intact - Psychiatric Psychiatric: appropriate mood/affect, intact judgment & insight Results - Labs 06/05/19 04:20 06/05/19 04:20 Abnormal lab results 06/04/19 06/04/19 06/05/19 Range/Units 13:50 18:05 00:58 WBC (4.5-11.0) K/mm3 MCH (28-32) pg RDW (13.2-15.2) % POC ABG pO2 (80-105) BUN (9-20) mg/dL Glucose (75-100) mg/dL POC Glucose 137 H 120 H 114 H (70-105) Calcium (8.4-10.2) mg/dL Vancomycin Trough (5.0-20.0) ug/mL 06/05/19 06/05/19 06/05/19 Range/Units 04:20 04:20 05:39 WBC 15.0 H (4.5-11.0) K/mm3 MCH 27 L (28-32) pg RDW 25.0 H (13.2-15.2) % POC ABG pO2 108 H (80-105) BUN 52 H (9-20) mg/dL Glucose 137 H (75-100) mg/dL POC Glucose (70-105) Calcium 7.8 L (8.4-10.2) mg/dL Vancomycin Trough (5.0-20.0) ug/mL 06/05/19 06/05/19 Range/Units 05:45 09:45 WBC (4.5-11.0) K/mm3 MCH (28-32) pg RDW (13.2-15.2) % POC ABG pO2 (80-105) BUN (9-20) mg/dL Glucose (75-100) mg/dL POC Glucose 111 H (70-105) Calcium (8.4-10.2) mg/dL Vancomycin Trough 20.1 H (5.0-20.0) ug/mL Diabetes panel 06/05/19 Range/Units 04:20 Sodium 139 (137-145) mmol/L Potassium 3.8 (3.6-5.0) mmol/L Chloride 103.5 (98-107) mmol/L Carbon Dioxide 23 (22-30) mmol/L BUN 52 H (9-20) mg/dL Creatinine 1.3 (0.8-1.5) mg/dL Glucose 137 H (75-100) mg/dL Calcium 7.8 L (8.4-10.2) mg/dL Calcium panel 06/05/19 Range/Units 04:20 Calcium 7.8 L (8.4-10.2) mg/dL Phosphorus 2.50 (2.5-4.5) mg/dL Pituitary panel 06/05/19 Range/Units 04:20 Sodium 139 (137-145) mmol/L Potassium 3.8 (3.6-5.0) mmol/L Chloride 103.5 (98-107) mmol/L Carbon Dioxide 23 (22-30) mmol/L BUN 52 H (9-20) mg/dL Creatinine 1.3 (0.8-1.5) mg/dL Glucose 137 H (75-100) mg/dL Calcium 7.8 L (8.4-10.2) mg/dL Adrenal panel 06/05/19 Range/Units 04:20 Sodium 139 (137-145) mmol/L Potassium 3.8 (3.6-5.0) mmol/L Chloride 103.5 (98-107) mmol/L Carbon Dioxide 23 (22-30) mmol/L BUN 52 H (9-20) mg/dL Creatinine 1.3 (0.8-1.5) mg/dL Glucose 137 H (75-100) mg/dL Calcium 7.8 L (8.4-10.2) mg/dL - Imaging Additional studies: BLE arterial dopplers on 06/03/19 revealed no significant PAD. Random BS over the past 48 hours have ranged in the low 100's. Assessment and Plan - Patient Problems (1) Abscess of right foot Current Visit: Yes Status: Acute Plan to address problem: 1) The eschars on the dorsum of his bilateral feet need to be excised to drain any underlying pus. I will perform this today. 2) I discussed the possibility of bilateral major amputation with the pt. He is unwilling to consider this at this time. 3) Continue broad spectrum antibiotics pending C&S results which will be done at the time of surgery today.
--- NOTE | 2019-06-05 13:28 | Procedure Note ---
Date of procedure: 06/05/19 Pre-op diagnosis: Bilateral dorsal foot abscesses Post-op diagnosis: same Procedure: Deep I&D of bilateral dorsal foot abscesses Description of procedure: Pt was placed supine on his bed. Bilateral feet were prepped and draped. He was administered IV Dilaudid. The dry eschar on the dorsum of his right foot was incised resulting in drainage of copious purulent fluid. This was sent for C&S. The dry eschar was excised with scissors. The resulting base was curetted down to fascia and tendons. Bleeding was minimal and was controlled with pressure. An identical procedure was then performed on the dorsum of his left foot. A small amount of pus was present under the eschar and this was also sent for C&S. Wounds were then dressed by his ICU nurse. Pt tolerated the procedure well. He does not want to consider amputation at this point. Anesthesia: other (IV Dilaudid) Surgeon: JUAN BEARDEN Estimated blood loss: minimal Pathology: list (C&S of bilateral foot wounds) Specimen disposition: to lab Condition: stable Disposition: no change
--- NOTE | 2019-06-05 15:18 | XRay Report ---
CHEST 1 VIEW INDICATION: follow up respiratory failure. COMPARISON: 06/04/2019 FINDINGS: Support devices: Stable satisfactory device positioning. An endotracheal tube is in satisfactory posi tion and a right IJ catheter tip is in the distal SVC. A nasogastric tube tip is not included on the image. Heart: Within normal limits. Pulmonary vasculature: Normal. Lungs/Pleura: The lungs are normally expanded and clear. No pneumothorax. No pleural effusion. Additional findings: None. IMPRESSION: No change. No CHF or pneumonia. Signer Name: Edy Goldstein MD Signed: 06/05/2019 3:14 PM Workstation Name: [id number]
--- NOTE | 2019-06-05 15:31 | Fluoroscopy Report ---
UPPER GI SERIES HISTORY: Status post repair of perforated gastric ulcer. Evaluate for leak. FINDINGS: 1.9 minutes of fluoroscopy time was utilized. 12 fluoroscopic images were saved. A modified upper GI series was performed with Gastrografin. The distal esophagus, gastric cavity and proximal d uodenum are opacified and unremarkable. There is no evidence for obstruction or extravasation of cont rast. IMPRESSION: No leak at the surgical site is identified. Signer Name: Jackson Ventura Jr, MD Signed: 06/05/2019 3:27 PM Workstation Name: [id number]
--- NOTE | 2019-06-05 15:46 | Event Note ---
Date: 06/05/19 Patient extubated this am. Per nursing patient removed his own NG tube. Upper GI series images and radiology read reviewed. No extravasation of contrast or obstruction. Advance to clear liquid diet with supplements. Continue TPN.
[2019-06-05] MEDS ORDERED: TOTAL PARENTERAL NUTRITION 1,560 ML IV SCH (20:00)
[2019-06-05] MEDS: SODIUM HYPOCHLORITE, DAKIN'S 1/2 STRENGTH (0.25%) 473 ML TOPICAL SOLN TP SCH (22:17)
[2019-06-06] MEDS: HYDROmorphone 1 MG/1 ML INJ IV PRN ×3 (03:46→20:40)
[2019-06-06] MEDS: MEROPENEM/NS 500 MG/50 ML 500 MG/50 ML BAG IV SCH ×4 (04:53→23:47)
[2019-06-06 05:00] LABS: BUN/Creatinine Ratio 56; Blood Urea Nitrogen 62 mg/dL (9-20); Calcium 7.7 mg/dL (8.4-10.2); Hemolysis Index 4
[2019-06-06] MEDS: FUROSEMIDE 40 MG/4 ML INJ IV SCH (05:54)
[2019-06-06] MEDS: BUDESONIDE 0.5 MG/2 ML NEBU IH SCH ×2 (08:04→21:46)
[2019-06-06] MEDS: IPRATROPIUM/ALBUTEROL SULFATE 3 ML AMPUL.NEB IH SCH ×4 (08:05→21:46)
[2019-06-06] MEDS: ARFORMOTEROL 15 MCG/2 ML NEBU IH SCH ×2 (08:05→21:46)
--- NOTE | 2019-06-06 08:42 | Progress Note ---
Assessment and Plan - Patient Problems (1) Acute respiratory failure Current Visit: Yes Status: Acute (2) Pleural effusion Current Visit: Yes Status: Acute (3) Pneumoperitoneum Current Visit: Yes Status: Acute (4) Prerenal azotemia Current Visit: Yes Status: Acute (5) Sepsis Current Visit: Yes Status: Acute Qualifiers: Sepsis type: sepsis due to unspecified organism Sepsis acute organ dysfunction status: unspecified Qualified Code(s): A41.9 - Sepsis, unspecified organism (6) CKD (chronic kidney disease) Current Visit: Yes Status: Chronic Qualifiers: (7) Cardiomyopathy Current Visit: Yes Status: Chronic Qualifiers: Cardiomyopathy type: unspecified Qualified Code(s): I42.9 - Cardiomyopathy, unspecified (8) Chronic HFrEF (heart failure with reduced ejection fraction) Current Visit: Yes Status: Chronic (9) Nonischemic cardiomyopathy Current Visit: Yes Status: Chronic (10) PAD (peripheral artery disease) Current Visit: Yes Status: Chronic (11) Pulmonary hypertension Current Visit: Yes Status: Chronic Subjective Principal diagnosis: perforated gastric ulcer Interval history: awake and responsive. Lying in bed Objective Vital Signs - 12hr 06/05/19 06/05/19 06/05/19 20:50 21:00 21:10 Temperature Pulse Rate 113 H 113 H 108 H Pulse Rate [ Anterior Bilateral Throughout] Pulse Rate [ From Monitor] Respiratory 17 16 21 Rate Respiratory Rate [Anterior Bilateral Throughout] Blood Pressure 116/67 128/72 128/72 O2 Sat by Pulse 98 93 95 Oximetry 06/05/19 06/05/19 06/05/19 21:20 21:30 21:40 Temperature Pulse Rate 106 H 109 H 109 H Pulse Rate [ Anterior Bilateral Throughout] Pulse Rate [ From Monitor] Respiratory 12 14 15 Rate Respiratory Rate [Anterior Bilateral Throughout] Blood Pressure 128/72 128/72 128/72 O2 Sat by Pulse 100 100 100 Oximetry 06/05/19 06/05/19 06/05/19 21:50 22:00 22:10 Temperature Pulse Rate 109 H 110 H 110 H Pulse Rate [ Anterior Bilateral Throughout] Pulse Rate [ From Monitor] Respiratory 14 14 18 Rate Respiratory Rate [Anterior Bilateral Throughout] Blood Pressure 128/72 114/67 114/67 O2 Sat by Pulse 100 99 94 Oximetry 06/05/19 06/05/19 06/05/19 22:20 22:30 22:40 Temperature Pulse Rate 110 H 108 H 109 H Pulse Rate [ Anterior Bilateral Throughout] Pulse Rate [ From Monitor] Respiratory 12 13 12 Rate Respiratory Rate [Anterior Bilateral Throughout] Blood Pressure 114/67 114/67 114/67 O2 Sat by Pulse 96 85 98 Oximetry 06/05/19 06/05/19 06/05/19 22:50 23:00 23:10 Temperature Pulse Rate 106 H 111 H 103 H Pulse Rate [ Anterior Bilateral Throughout] Pulse Rate [ From Monitor] Respiratory 10 L 11 L 11 L Rate Respiratory Rate [Anterior Bilateral Throughout] Blood Pressure 114/67 123/69 123/69 O2 Sat by Pulse 98 95 96 Oximetry 06/05/19 06/05/19 06/05/19 23:20 23:28 23:30 Temperature Pulse Rate 105 H 108 H 106 H Pulse Rate [ Anterior Bilateral Throughout] Pulse Rate [ From Monitor] Respiratory 14 18 13 Rate Respiratory Rate [Anterior Bilateral Throughout] Blood Pressure 123/69 123/69 123/69 O2 Sat by Pulse 97 98 97 Oximetry 06/06/19 06/06/19 06/06/19 00:00 00:10 00:30 Temperature 98.6 F Pulse Rate 109 H 109 H 112 H Pulse Rate [ Anterior Bilateral Throughout] Pulse Rate [ 109 H From Monitor] Respiratory 13 15 Rate Respiratory Rate [Anterior Bilateral Throughout] Blood Pressure 114/71 114/71 O2 Sat by Pulse 92 99 Oximetry 06/06/19 06/06/19 06/06/19 01:00 01:30 02:00 Temperature Pulse Rate 105 H 105 H 107 H Pulse Rate [ Anterior Bilateral Throughout] Pulse Rate [ From Monitor] Respiratory 12 12 15 Rate Respiratory Rate [Anterior Bilateral Throughout] Blood Pressure 121/73 121/73 109/65 O2 Sat by Pulse 99 96 98 Oximetry 06/06/19 06/06/19 06/06/19 02:30 03:00 03:30 Temperature Pulse Rate 106 H 102 H 102 H Pulse Rate [ Anterior Bilateral Throughout] Pulse Rate [ From Monitor] Respiratory 12 13 14 Rate Respiratory Rate [Anterior Bilateral Throughout] Blood Pressure 109/65 112/69 112/69 O2 Sat by Pulse 97 99 100 Oximetry 06/06/19 06/06/19 06/06/19 03:46 04:00 04:30 Temperature 97.4 F L Pulse Rate 99 H 103 H Pulse Rate [ Anterior Bilateral Throughout] Pulse Rate [ 99 H From Monitor] Respiratory 18 12 13 Rate Respiratory Rate [Anterior Bilateral Throughout] Blood Pressure 120/67 120/67 O2 Sat by Pulse 95 99 Oximetry 06/06/19 06/06/19 06/06/19 05:00 05:30 06:00 Temperature Pulse Rate 100 H 94 H 100 H Pulse Rate [ Anterior Bilateral Throughout] Pulse Rate [ From Monitor] Respiratory 18 13 11 L Rate Respiratory Rate [Anterior Bilateral Throughout] Blood Pressure 120/67 120/67 127/74 O2 Sat by Pulse 99 97 Oximetry 06/06/19 06/06/19 06/06/19 06:30 08:05 08:25 Temperature Pulse Rate 104 H Pulse Rate [ 107 H Anterior Bilateral Throughout] Pulse Rate [ From Monitor] Respiratory 24 Rate Respiratory 20 Rate [Anterior Bilateral Throughout] Blood Pressure 127/74 O2 Sat by Pulse 93 96 Oximetry Constitutional: no acute distress, alert Eyes: non-icteric ENT: oropharynx moist Neck: supple Effort: normal Ascultation: Bilateral: clear Cardiovascular: regular rate and rhythm (no mrg) Gastrointestinal: absent bowel sounds, non-tender Integumentary: other (necrotic ulcers lower extremities) Extremities: no cyanosis, edema (1+ generalized edema) Neurologic: normal mental status, non-focal exam Psychiatric: mood appropriate, affect normal CBC and BMP: 06/05/19 04:20 06/06/19 04:20 ABG, PT/INR, D-dimer: ABG POC ABG pH 7.432 (7.35-7.45) 06/05/19 05:39 POC ABG pCO2 38.2 (35-45) 06/05/19 05:39 POC ABG pO2 108 (80-105) H 06/05/19 05:39 POC ABG HCO3 25.5 (22-26 mml/L) 06/05/19 05:39 POC ABG Total CO2 27 (23-27mmol/L) 06/05/19 05:39 POC ABG O2 Sat 98 06/05/19 05:39 PT/INR, D-dimer PT 17.9 Sec. (12.2-14.9) H 06/02/19 07:15 INR 1.50 (0.87-1.13) H 06/02/19 07:15 Abnormal lab findings: Abnormal Labs 11/24/19 11/24/19 11/24/19 07:15 07:15 07:15 WBC 21.0 H RBC 5.17 H MCH 27 L RDW 23.8 H Seg Neuts % (Manual) 97.0 H Lymphocytes % (Manual) 1.0 L Nucleated RBC % 3.0 H Seg Neutrophils # Man 20.4 H Lymphocytes # (Manual) 0.2 L PT 17.9 H INR 1.50 H POC ABG pH POC ABG pCO2 POC ABG pO2 VBG pH Sodium 130 L Chloride 97.1 L Carbon Dioxide 16 L BUN 47 H Glucose 139 H POC Glucose Lactic Acid Calcium Phosphorus Magnesium Total Bilirubin 6.40 H Direct Bilirubin 4.5 H AST 50 H Alkaline Phosphatase 179 H Ammonia Total Creatine Kinase 53 L CK-MB (CK-2) 5.1 H CK-MB (CK-2) Rel Index 9.6 H Troponin T NT-Pro-B Natriuret Pep > 49283 H Total Protein 5.8 L Albumin 2.1 L LDL Cholesterol Direct HDL Cholesterol Vancomycin Trough 06/02/19 06/02/19 06/02/19 07:15 07:15 07:15 WBC RBC MCH RDW Seg Neuts % (Manual) Lymphocytes % (Manual) Nucleated RBC % Seg Neutrophils # Man Lymphocytes # (Manual) PT INR POC ABG pH POC ABG pCO2 POC ABG pO2 VBG pH 7.310 L Sodium Chloride Carbon Dioxide BUN Glucose POC Glucose Lactic Acid 2.40 H* Calcium Phosphorus Magnesium Total Bilirubin Direct Bilirubin AST Alkaline Phosphatase Ammonia 16.0 L Total Creatine Kinase CK-MB (CK-2) CK-MB (CK-2) Rel Index Troponin T NT-Pro-B Natriuret Pep Total Protein Albumin LDL Cholesterol Direct HDL Cholesterol Vancomycin Trough 06/02/19 06/02/19 06/02/19 07:15 15:33 15:53 WBC RBC MCH RDW Seg Neuts % (Manual) Lymphocytes % (Manual) Nucleated RBC % Seg Neutrophils # Man Lymphocytes # (Manual) PT INR POC ABG pH 7.229 L POC ABG pCO2 49.5 H POC ABG pO2 VBG pH Sodium Chloride Carbon Dioxide BUN Glucose POC Glucose 66 L Lactic Acid Calcium Phosphorus Magnesium Total Bilirubin Direct Bilirubin AST Alkaline Phosphatase Ammonia Total Creatine Kinase CK-MB (CK-2) CK-MB (CK-2) Rel Index Troponin T 0.065 H NT-Pro-B Natriuret Pep Total Protein Albumin LDL Cholesterol Direct 31 L HDL Cholesterol 8 L Vancomycin Trough 06/02/19 06/02/19 06/03/19 16:40 17:10 04:06 WBC RBC MCH RDW Seg Neuts % (Manual) Lymphocytes % (Manual) Nucleated RBC % Seg Neutrophils # Man Lymphocytes # (Manual) PT INR POC ABG pH 7.259 L POC ABG pCO2 33.9 L POC ABG pO2 221 H 146 H VBG pH Sodium Chloride Carbon Dioxide BUN Glucose POC Glucose 151 H Lactic Acid Calcium Phosphorus Magnesium Total Bilirubin Direct Bilirubin AST Alkaline Phosphatase Ammonia Total Creatine Kinase CK-MB (CK-2) CK-MB (CK-2) Rel Index Troponin T NT-Pro-B Natriuret Pep Total Protein Albumin LDL Cholesterol Direct HDL Cholesterol Vancomycin Trough 06/03/19 06/03/19 06/03/19 04:41 04:41 17:23 WBC 17.5 H RBC MCH 27 L RDW 25.0 H Seg Neuts % (Manual) 96.0 H Lymphocytes % (Manual) 0 L Nucleated RBC % 1.0 H Seg Neutrophils # Man 16.8 H Lymphocytes # (Manual) 0.0 L PT INR POC ABG pH POC ABG pCO2 POC ABG pO2 VBG pH Sodium Chloride Carbon Dioxide 17 L BUN 42 H Glucose 59 L POC Glucose 113 H Lactic Acid Calcium Phosphorus Magnesium Total Bilirubin 7.00 H Direct Bilirubin AST Alkaline Phosphatase 153 H Ammonia Total Creatine Kinase CK-MB (CK-2) CK-MB (CK-2) Rel Index Troponin T NT-Pro-B Natriuret Pep Total Protein 5.9 L Albumin 1.7 L LDL Cholesterol Direct HDL Cholesterol Vancomycin Trough 06/03/19 06/04/19 06/04/19 23:37 05:10 05:10 WBC 16.7 H RBC MCH 27 L RDW 24.5 H Seg Neuts % (Manual) 94.0 H Lymphocytes % (Manual) 3.0 L Nucleated RBC % Seg Neutrophils # Man 15.7 H Lymphocytes # (Manual) 0.5 L PT INR POC ABG pH POC ABG pCO2 POC ABG pO2 VBG pH Sodium Chloride Carbon Dioxide BUN 39 H Glucose 136 H POC Glucose 126 H Lactic Acid Calcium 8.3 L Phosphorus Magnesium 1.30 L Total Bilirubin 7.70 H Direct Bilirubin AST Alkaline Phosphatase 140 H Ammonia Total Creatine Kinase CK-MB (CK-2) CK-MB (CK-2) Rel Index Troponin T NT-Pro-B Natriuret Pep Total Protein 5.6 L Albumin 1.7 L LDL Cholesterol Direct HDL Cholesterol Vancomycin Trough 06/04/19 06/04/19 06/04/19 05:44 13:50 18:05 WBC RBC MCH RDW Seg Neuts % (Manual) Lymphocytes % (Manual) Nucleated RBC % Seg Neutrophils # Man Lymphocytes # (Manual) PT INR POC ABG pH POC ABG pCO2 POC ABG pO2 VBG pH Sodium Chloride Carbon Dioxide BUN Glucose POC Glucose 124 H 137 H 120 H Lactic Acid Calcium Phosphorus Magnesium Total Bilirubin Direct Bilirubin AST Alkaline Phosphatase Ammonia Total Creatine Kinase CK-MB (CK-2) CK-MB (CK-2) Rel Index Troponin T NT-Pro-B Natriuret Pep Total Protein Albumin LDL Cholesterol Direct HDL Cholesterol Vancomycin Trough 06/05/19 06/05/19 06/05/19 00:58 04:20 04:20 WBC 15.0 H RBC MCH 27 L RDW 25.0 H Seg Neuts % (Manual) Lymphocytes % (Manual) Nucleated RBC % Seg Neutrophils # Man Lymphocytes # (Manual) PT INR POC ABG pH POC ABG pCO2 POC ABG pO2 VBG pH Sodium Chloride Carbon Dioxide BUN 52 H Glucose 137 H POC Glucose 114 H Lactic Acid Calcium 7.8 L Phosphorus Magnesium Total Bilirubin Direct Bilirubin AST Alkaline Phosphatase Ammonia Total Creatine Kinase CK-MB (CK-2) CK-MB (CK-2) Rel Index Troponin T NT-Pro-B Natriuret Pep Total Protein Albumin LDL Cholesterol Direct HDL Cholesterol Vancomycin Trough 06/05/19 06/05/19 06/05/19 05:39 05:45 09:45 WBC RBC MCH RDW Seg Neuts % (Manual) Lymphocytes % (Manual) Nucleated RBC % Seg Neutrophils # Man Lymphocytes # (Manual) PT INR POC ABG pH POC ABG pCO2 POC ABG pO2 108 H VBG pH Sodium Chloride Carbon Dioxide BUN Glucose POC Glucose 111 H Lactic Acid Calcium Phosphorus Magnesium Total Bilirubin Direct Bilirubin AST Alkaline Phosphatase Ammonia Total Creatine Kinase CK-MB (CK-2) CK-MB (CK-2) Rel Index Troponin T NT-Pro-B Natriuret Pep Total Protein Albumin LDL Cholesterol Direct HDL Cholesterol Vancomycin Trough 20.1 H 06/05/19 06/05/19 06/06/19 13:25 18:27 00:01 WBC RBC MCH RDW Seg Neuts % (Manual) Lymphocytes % (Manual) Nucleated RBC % Seg Neutrophils # Man Lymphocytes # (Manual) PT INR POC ABG pH POC ABG pCO2 POC ABG pO2 VBG pH Sodium Chloride Carbon Dioxide BUN Glucose POC Glucose 152 H 194 H 153 H Lactic Acid Calcium Phosphorus Magnesium Total Bilirubin Direct Bilirubin AST Alkaline Phosphatase Ammonia Total Creatine Kinase CK-MB (CK-2) CK-MB (CK-2) Rel Index Troponin T NT-Pro-B Natriuret Pep Total Protein Albumin LDL Cholesterol Direct HDL Cholesterol Vancomycin Trough 06/06/19 06/06/19 04:20 05:45 WBC RBC MCH RDW Seg Neuts % (Manual) Lymphocytes % (Manual) Nucleated RBC % Seg Neutrophils # Man Lymphocytes # (Manual) PT INR POC ABG pH POC ABG pCO2 POC ABG pO2 VBG pH Sodium Chloride Carbon Dioxide BUN 62 H Glucose 141 H POC Glucose 161 H Lactic Acid Calcium 7.7 L Phosphorus 2.40 L Magnesium Total Bilirubin Direct Bilirubin AST Alkaline Phosphatase Ammonia Total Creatine Kinase CK-MB (CK-2) CK-MB (CK-2) Rel Index Troponin T NT-Pro-B Natriuret Pep Total Protein Albumin LDL Cholesterol Direct HDL Cholesterol Vancomycin Trough
--- NOTE | 2019-06-06 08:55 | Progress Note ---
Assessment and Plan Will add IV metoprolol q6 hours until PO home cardiac medications are resumed. Continue other current management for now. The patient has been seen in conjunction with Dr. Melia Baird, who agrees with the assessment and plan. - Patient Problems (1) Pneumoperitoneum Current Visit: Yes Status: Acute (2) Perforated gastric ulcer Current Visit: Yes Status: Acute (3) Acute respiratory failure Current Visit: Yes Status: Acute (4) Wounds, multiple Current Visit: Yes Status: Chronic (5) Sepsis Current Visit: Yes Status: Acute Qualifiers: Sepsis type: sepsis due to unspecified organism Sepsis acute organ dysfunction status: unspecified Qualified Code(s): A41.9 - Sepsis, unspecified organism (6) Cardiomyopathy Current Visit: Yes Status: Chronic Qualifiers: Cardiomyopathy type: unspecified Qualified Code(s): I42.9 - Cardiomyopathy, unspecified (7) Chronic HFrEF (heart failure with reduced ejection fraction) Current Visit: Yes Status: Chronic (8) HTN (hypertension) Current Visit: Yes Status: Chronic Qualifiers: Hypertension type: essential hypertension Qualified Code(s): I10 - Essential (primary) hypertension (9) NSVT (nonsustained ventricular tachycardia) Current Visit: Yes Status: Acute (10) Nonischemic cardiomyopathy Current Visit: Yes Status: Chronic (11) PAD (peripheral artery disease) Current Visit: Yes Status: Chronic (12) Pulmonary hypertension Current Visit: Yes Status: Chronic (13) Sinus node dysfunction Current Visit: Yes Status: Chronic (14) Pulmonary hypertension Current Visit: No Status: Acute (15) Noncompliance Current Visit: No Status: Chronic Subjective Date of service: 06/06/19 Principal diagnosis: perforated gastric ulcer Interval history: The patient is lying in bed in NAD. He is s/p patch of perforated ulcer and has no complaints. Telemetry reviewed - SR/ST with rates in 90s to 100s. Objective Last Vital Signs Temp 97.4 F L 06/06/19 04:00 Pulse 99 H 06/06/19 08:30 Resp 12 06/06/19 08:30 BP 113/73 06/06/19 08:30 Pulse Ox 100 06/06/19 08:30 - Physical Examination General: No Apparent Distress HEENT: Positive: EOMI, Normocephaly, Mucus Membranes Moist Neck: Positive: neck supple, trachea midline, Carotid Upstroke (full) Cardiac: Positive: Regular Rhythm Lungs: Positive: Normal Exam Neuro: Positive: Grossly Intact Abdomen: Positive: Soft /Rectal: Other (deferred) Skin: Positive: Other (multiple wounds on both lower extremities with areas of ischemic ulceration. jaundiced) Musculoskeletal: Normal Range of Motion Extremities: Present: Other (LLE - pulse difficult to palpate d/t wounds ) - Labs and Meds Comprehensive Metabolic Panel 06/06/19 Range/Units 04:20 Sodium 141 (137-145) mmol/L Potassium 3.6 (3.6-5.0) mmol/L Chloride 103.3 (98-107) mmol/L Carbon Dioxide 27 (22-30) mmol/L BUN 62 H (9-20) mg/dL Creatinine 1.1 (0.8-1.5) mg/dL Glucose 141 H (75-100) mg/dL Calcium 7.7 L (8.4-10.2) mg/dL - Imaging and Cardiology EKG: image reviewed Echo: report reviewed (02/28/19 showed EF of 10-15%, dilation of all chambers, moderate AR, moderate to severe TR and RV hypokinesis. ) Cardiac cath: report reviewed (04/2017 showed patent coronaries, EF 10-15%. ) - Telemetry EKG Rhythm: Sinus Tachycardia - EKG Sinus rhythms and dysrhythmias: sinus rhythm Chamber hypertrophy or enlargement: left ventricular hypertro Repolarization changes or abnormalities: repolarization abn secondary to ventricular hypertrophy Myocardial infarction: septal DE (old age or ind
--- NOTE | 2019-06-06 09:25 | Progress Note ---
Assessment and Plan Assessment and plan: Patient is a 63 yo man with a history of NICMP, chronic HFrEF 10-15%, NSVT declines LifeVest/AICD, CKD 3, HTN and mod to severe TR, b/l LE wounds, bedbound who presents to [facility] ED with c/o abdominal pain for 3 days. He had multiple bilateral lower extremity wound and stage I to 2 lower extremity ulcer covered with pus. CT abdomen and pelvis suggestive of pneumoperitoneum. General surgery has been consulted and patient was taken for OR for exploratory laparotomy by general surgeon. He also received empiric antibiotics, blood culture wound culture has been ordered. Perforated gastric ulcer. - - General surgery consulted for perforated bowel - s/p exploratory laparotomy, omental patch of perforated gastric ulcer by Dr. Sims, Surgeon, POD 2 - cont empiric abx,cautious IV fluid, may need to start on TPN - NPO now, cont PPI ggt Sepsis with bilateral lower extremity cellulitis/infected ulcer and perforated bowel - Continue empiric antibiotics, obtain blood cultures, wound culture - Wound care consult placed, -ID Physician following bilateral lower extremity cellulitis/infected ulcer - from PVD - s/p bilateral I and D done 06/[address] Oakes Moderate b/l pleural effusion CHFrEF 10-15% - Cardiology consulted - monitor ins/os, daily lasix iv to prevent fluid overload Chronic systolic CHF cardiology following Severe protein calorie malnutrition - nutrition consult, may need TPN CKD stage III, monitor renal function, avoid nephrotoxin - renal function stable Elevated bilirubin, trend LFT Severe metabolic acidosis likely due to perforated bowel - bicarbonate as needed Acute respiratory failure following surgery - CC following, cont nebs, -Extubated this morning 06/05 - Provide GI and DVT prophylaxis - patient stable to transfer to Surgical floor The high probability of a clinically significant, sudden or life threatening deterioration of the [CVS, GI] system(s) required my full and direct attention, intervention and personal management. The aggregate critical care time was [33] minutes. This time is in addition to time spent performing reported procedures but includes the following: [X] Data Review and interpretation [X] Patient assessment and monitoring of vital signs [X] Documentation [X] Medication orders and management History Interval history: s/p abdominal surgery Extubated yesterday 06/05 Started on clear liquid diet Hospitalist Physical - Physical exam Narrative exam: Gen: Not in acute distress, lying in bed, HEENT: Normocephalic, atraumatic Neck: supple, no JVD Heart: S1 and S2 reg, no murmurs, rubs or gallop Lungs: Clear to auscultation bilaterally, Abd: soft, NT, wound dry, surgical drain, Ext: Dressing over wounds both legs, no cyanosis, swelling both upper and lower ext, Neuro: awake,alert,oriented, moves all ext - Constitutional Vitals: Temp Pulse Resp BP Pulse Ox 97.7 F 99 H 12 113/73 100 06/06/19 08:00 06/06/19 08:30 06/06/19 08:30 06/06/19 08:30 06/06/19 08:30 General appearance: Present: no acute distress Results - Labs CBC & Chem 7: 06/05/19 04:20 06/06/19 04:20 Labs: Laboratory Last Values WBC 15.0 K/mm3 (4.5-11.0) H 06/05/19 04:20 RBC 4.36 M/mm3 (3.65-5.03) 06/05/19 04:20 Hgb 11.9 gm/dl (11.8-15.2) 06/05/19 04:20 Hct 36.8 % (35.5-45.6) 06/05/19 04:20 MCV 84 fl (84-94) 06/05/19 04:20 MCH 27 pg (28-32) L 06/05/19 04:20 MCHC 32 % (32-34) 06/05/19 04:20 RDW 25.0 % (13.2-15.2) H 06/05/19 04:20 Plt Count 181 K/mm3 (140-440) 06/05/19 04:20 Add Manual Diff Complete 06/04/19 05:10 Total Counted 100 06/04/19 05:10 Seg Neutrophils % Helix Coil Winder 06/04/19 05:10 Seg Neuts % (Manual) 94.0 % (40.0-70.0) H 06/04/19 05:10 Band Neutrophils % 0 % 06/04/19 05:10 Lymphocytes % (Manual) 3.0 % (13.4-35.0) L 06/04/19 05:10 Reactive Lymphs % (Man) 0 % 06/04/19 05:10 Monocytes % (Manual) 2.0 % (0.0-7.3) 06/04/19 05:10 Eosinophils % (Manual) 1.0 % (0.0-4.3) 06/04/19 05:10 Basophils % (Manual) 0 % (0.0-1.8) 06/04/19 05:10 Metamyelocytes % 0 % 06/04/19 05:10 Myelocytes % 0 % 06/04/19 05:10 Promyelocytes % 0 % 06/04/19 05:10 Blast Cells % 0 % 06/04/19 05:10 Nucleated RBC % Not Reportable 06/04/19 05:10 Seg Neutrophils # Man 15.7 K/mm3 (1.8-7.7) H 06/04/19 05:10 Band Neutrophils # 0.0 K/mm3 06/04/19 05:10 Lymphocytes # (Manual) 0.5 K/mm3 (1.2-5.4) L 06/04/19 05:10 Abs React Lymphs (Man) 0.0 K/mm3 06/04/19 05:10 Monocytes # (Manual) 0.3 K/mm3 (0.0-0.8) 06/04/19 05:10 Eosinophils # (Manual) 0.2 K/mm3 (0.0-0.4) 06/04/19 05:10 Basophils # (Manual) 0.0 K/mm3 (0.0-0.1) 06/04/19 05:10 Metamyelocytes # 0.0 K/mm3 06/04/19 05:10 Myelocytes # 0.0 K/mm3 06/04/19 05:10 Promyelocytes # 0.0 K/mm3 06/04/19 05:10 Blast Cells # 0.0 K/mm3 06/04/19 05:10 WBC Morphology Not Reportable 06/04/19 05:10 Hypersegmented Neuts Not Reportable 06/04/19 05:10 Hyposegmented Neuts Not Reportable 06/04/19 05:10 Hypogranular Neuts Not Reportable 06/04/19 05:10 Smudge Cells Not Reportable 06/04/19 05:10 Toxic Granulation Not Reportable 06/04/19 05:10 Toxic Vacuolation Not Reportable 06/04/19 05:10 Dohle Bodies Not Reportable 06/04/19 05:10 Pelger-Huet Anomaly Not Reportable 06/04/19 05:10 Romero Rods Not Reportable 06/04/19 05:10 Platelet Estimate Consistent w auto 06/04/19 05:10 Clumped Platelets Not Reportable 06/04/19 05:10 Plt Clumps, EDTA Not Reportable 06/04/19 05:10 Large Platelets Not Reportable 06/04/19 05:10 Giant Platelets Not Reportable 06/04/19 05:10 Platelet Satelliting Not Reportable 06/04/19 05:10 Plt Morphology Comment Not Reportable 06/04/19 05:10 RBC Morphology Not Reportable 06/04/19 05:10 Dimorphic RBCs Not Reportable 06/04/19 05:10 Polychromasia Not Reportable 06/04/19 05:10 Hypochromasia Few 06/04/19 05:10 Poikilocytosis Not Reportable 06/04/19 05:10 Anisocytosis 1+ 06/04/19 05:10 Microcytosis Not Reportable 06/04/19 05:10 Macrocytosis Not Reportable 06/04/19 05:10 Spherocytes Not Reportable 06/04/19 05:10 Pappenheimer Bodies Not Reportable 06/04/19 05:10 Sickle Cells Not Reportable 06/04/19 05:10 Target Cells 1+ 06/04/19 05:10 Tear Drop Cells Not Reportable 06/04/19 05:10 Ovalocytes Not Reportable 06/04/19 05:10 Helmet Cells Not Reportable 06/04/19 05:10 [place] Bodies Not Reportable 06/04/19 05:10 [place] Rings Not Reportable 06/04/19 05:10 [place] Cells Not Reportable 06/04/19 05:10 Bite Cells Not Reportable 06/04/19 05:10 Crenated Cell Not Reportable 06/04/19 05:10 Elliptocytes Not Reportable 06/04/19 05:10 Acanthocytes (Spur) Not Reportable 06/04/19 05:10 Rouleaux Not Reportable 06/04/19 05:10 Hemoglobin C Crystals Not Reportable 06/04/19 05:10 Schistocytes Not Reportable 06/04/19 05:10 Malaria parasites Not Reportable 06/04/19 05:10 Bunny Bodies Not Reportable 06/04/19 05:10 Hem Pathologist Commnt No 06/04/19 05:10 PT 17.9 Sec. (12.2-14.9) H 06/02/19 07:15 INR 1.50 (0.87-1.13) H 06/02/19 07:15 APTT 33.2 Sec. (24.2-36.6) 06/02/19 07:15 POC ABG pH 7.432 (7.35-7.45) 06/05/19 05:39 POC ABG pCO2 38.2 (35-45) 06/05/19 05:39 POC ABG pO2 108 (80-105) H 06/05/19 05:39 POC ABG HCO3 25.5 (22-26 mml/L) 06/05/19 05:39 POC ABG Total CO2 27 (23-27mmol/L) 06/05/19 05:39 POC ABG O2 Sat 98 06/05/19 05:39 POC ABG Base Excess 1 ((-2) - (+3)mmol/L) 06/05/19 05:39 VBG pH 7.310 (7.320-7.420) L 06/02/19 07:15 FiO2 28 % 06/05/19 05:39 Sodium 141 mmol/L (137-145) 06/06/19 04:20 Potassium 3.6 mmol/L (3.6-5.0) 06/06/19 04:20 Chloride 103.3 mmol/L (98-107) 06/06/19 04:20 Carbon Dioxide 27 mmol/L (22-30) 06/06/19 04:20 Anion Gap 14 mmol/L 06/06/19 04:20 BUN 62 mg/dL (9-20) H 06/06/19 04:20 Creatinine 1.1 mg/dL (0.8-1.5) 06/06/19 04:20 Estimated GFR > 60 ml/min 06/06/19 04:20 BUN/Creatinine Ratio 56 % 06/06/19 04:20 Glucose 141 mg/dL (75-100) H 06/06/19 04:20 POC Glucose 161 (70-105) H 06/06/19 05:45 Lactic Acid 1.10 mmol/L (0.7-2.0) 06/02/19 09:17 Calcium 7.7 mg/dL (8.4-10.2) L 06/06/19 04:20 Phosphorus 2.40 mg/dL (2.5-4.5) L 06/06/19 04:20 Magnesium 2.10 mg/dL (1.7-2.3) 06/05/19 09:45 Total Bilirubin 7.70 mg/dL (0.1-1.2) H 06/04/19 05:10 Direct Bilirubin 4.5 mg/dL (0-0.2) H 06/02/19 07:15 Indirect Bilirubin 1.9 mg/dL 06/02/19 07:15 AST 30 units/L (5-40) 06/04/19 05:10 ALT 29 units/L (7-56) 06/04/19 05:10 Alkaline Phosphatase 140 units/L (35-129) H 06/04/19 05:10 Ammonia 16.0 umol/L (25-60) L 06/02/19 07:15 Total Creatine Kinase 53 units/L (55-170) L 06/02/19 07:15 CK-MB (CK-2) 5.1 ng/mL (0.0-4.0) H 06/02/19 07:15 CK-MB (CK-2) Rel Index 9.6 (0-4) H 06/02/19 07:15 Troponin T 0.065 ng/mL (0.00-0.029) H 06/02/19 07:15 NT-Pro-B Natriuret Pep > 42245 pg/mL (0-900) H 06/02/19 07:15 Total Protein 5.6 g/dL (6.3-8.2) L 06/04/19 05:10 Albumin 1.7 g/dL (3.9-5) L 06/04/19 05:10 Albumin/Globulin Ratio 0.4 % 06/04/19 05:10 Triglycerides 112 mg/dL (2-149) 06/02/19 07:15 Cholesterol 73 mg/dL (50-199) 06/02/19 07:15 LDL Cholesterol Direct 31 mg/dL (50-130) L 06/02/19 07:15 HDL Cholesterol 8 mg/dL (40-59) L 06/02/19 07:15 Cholesterol/HDL Ratio 9.12 % 06/02/19 07:15 Lipase 56 units/L (13-60) 06/02/19 07:15 Urine Color Clarita (Yellow) 06/02/19 10:37 Urine Turbidity Clear (Clear) 06/02/19 10:37 Urine pH 5.0 (5.0-7.0) 06/02/19 10:37 Ur Specific Cope 1.019 (1.003-1.030) 06/02/19 10:37 Urine Protein <15 mg/dl mg/dL (Negative) 06/02/19 10:37 Urine Glucose (UA) 50 mg/dL (Negative) 06/02/19 10:37 Urine Ketones Neg mg/dL (Negative) 06/02/19 10:37 Urine Blood Neg (Negative) 06/02/19 10:37 Urine Nitrite Neg (Negative) 06/02/19 10:37 Urine Bilirubin Neg (Negative) 06/02/19 10:37 Urine Urobilinogen 4.0 mg/dL (<2.0) 06/02/19 10:37 Ur Leukocyte Esterase Neg (Negative) 06/02/19 10:37 Urine WBC (Auto) 2.0 /HPF (0.0-6.0) 06/02/19 10:37 Urine RBC (Auto) 2.0 /HPF (0.0-6.0) 06/02/19 10:37 Urine Bacteria (Auto) 1+ /HPF (Negative) 06/02/19 10:37 Vancomycin Trough 20.1 ug/mL (5.0-20.0) H 06/05/19 09:45 Blood Type A POSITIVE 06/02/19 11:55 Antibody Screen Negative 06/02/19 11:55 Active Medications - Current Medications Current Medications: Generic Name Dose Route Start Last Admin Trade Name Freq PRN Reason Stop Dose Admin Albuterol 2.5 mg 06/02/19 11:28 Proventil IH Q4H PRN Shortness Of Breath Albuterol/Ipratropium 1 ampul 06/05/19 12:00 06/06/19 08:05 Duoneb *Not For Prn Use* IH 1 ampul QIDRT ROSE Administration Arformoterol Tartrate 15 mcg 06/02/19 20:00 06/06/19 08:05 Brovana Nebu IH 15 mcg Q12HRT ROSE Administration Budesonide 0.5 mg 06/02/19 20:00 06/06/19 08:04 Pulmicort IH 0.5 mg Q12HRT ROSE Administration Furosemide 40 mg 06/03/19 13:00 06/06/19 05:54 Lasix IV 40 mg DAILY@0600 ROSE Administration Hydromorphone HCl 0.25 mg 06/05/19 10:55 06/06/19 03:46 Dilaudid IV 0.25 mg Q3H PRN Administration Pain , Severe (7-10) Meropenem 500 mg in 50 mls @ 50 mls/hr 06/02/19 17:00 06/06/19 04:53 Merrem/Ns 500 Mg/50 Ml IV 50 mls/hr Q6H ROSE Administration Fluconazole 200 mls @ 100 mls/hr 06/04/19 13:00 06/05/19 09:45 Diflucan IV 100 mls/hr Q24HR ROSE Administration Protocol Vancomycin HCl 750 mg/ Sodium 265 mls @ 166.667 mls/hr 06/06/19 10:00 Chloride IV Q24HR [facility] Amino Acids/Electrolytes/Dextrose 1,560 mls @ 65 mls/hr 06/05/19 20:00 06/05/19 19:48 Tpn Adult IV 06/06/19 19:59 65 mls/hr DAILY@2000 ROSE Administration Protocol Metoprolol Tartrate 2.5 mg 06/06/19 12:00 Metoprolol IV Q6HR ROSE Pantoprazole Sodium 40 mg 06/04/19 10:00 06/05/19 22:03 Protonix IV 40 mg BID ROSE Administration Sodium Hypochlorite 1 applic 06/05/19 22:00 06/05/19 22:17 Dakin's Half Strength TP 1 applicatio BID ROSE Administration Nutrition/Malnutrition Assess - Dietary Evaluation Nutrition/Malnutrition Findings: Nutrition Notes Start: 06/03/19 11:22 Freq: Status: Active Protocol: Document 06/05/19 09:42 LM (Rec: 06/05/19 10:08 LM -[email or web address]) Nutrition Notes Initial or Follow up Reassessment Current Diagnosis CKD(stage I-IV),Decubitus( Pressure Ulcer),Sepsis, Hypertension,Heart Failure Other Pertinent Diagnosis Perforated viscus S/P exp lap Current Diet CPN at 65 ml/hr Labs/Tests BUN 52 BG 137 Bili Pertinent Medications Lasix Propofol at 1.656 ml/hr ( provides 44 kcal) Height 5 ft 7 in Weight 61.1 kg [place] Body Weight (kg) 67.27 BMI 21.1 Subjective/Other Information CPN day 2. Pt extubated this AM. No plan to stop CPN as of yet. Recommend pt tolerate diet/TF before stopping CPN. Percent of energy/protein needs met: 44%/100% Burn Absent Trauma Absent GI Symptoms None Current % PO Negligible Minimum of two criteria Yes Body Fat Depletion Mild depletion (non-severe) Muscle Mass Mild Depletion (non-severe) Fluid Accumulation Mild (non-severe) Reduced [employer] Adviser Strength Measurably Reduced (severe) #1 Nutrition Diagnosis Malnutrition Diagnosis Progress(for reassessment Continues documentation) Is patient on ventilator? No Is Patient Ambulatory and/or Out of Bed No REE-([facility]-confined to bed) 1654.668 Kcal/Kg value to use for calculation 26 Approximate Energy Requirements Using 1589 kcal/Kg Calculation Used for Recommendations Kcal/kg Additional Notes Protein: 36-92g (0.6-1.5g/kg) pt with CKD and malnutrition Fluid: 1 ml/kcal or per MD Nutrition Intervention Change Diet Order: CPN Nutrition Support: CPN at 65 ml/hr: 9.6% dextrose , 15 mmol Phos, MVI, thiamine; 1284 mOsmol Kcal 862 Protein (gm) 88 Carbohydrates (gm) 150 Fat (gm) 0 Fluid (mL) 1,560 Fiber (gm) 0 Goal #1 CPN to meet needs as best as possible Anticipated Discharge Needs: Unable to determine at this time Follow-Up By: 06/06/19 Additional Comments Labs in AM: BMP, Mg, Phos
[2019-06-06] MEDS: SODIUM HYPOCHLORITE, DAKIN'S 1/2 STRENGTH (0.25%) 473 ML TOPICAL SOLN TP SCH ×2 (09:50→22:48)
[2019-06-06] MEDS: PANTOPRAZOLE 40 MG INJ IV SCH ×2 (09:50→21:13)
[2019-06-06] MEDS: FLUCONAZOLE 400 MG 200 ML IV SCH (09:50)
[2019-06-06] MEDS: VANCOMYCIN 750 MG in SODIUM CHLORIDE 0.9% 250ML 250 ML IV SCH (09:51)
[2019-06-06] MEDS: METOPROLOL TARTRATE 5 MG/5 ML INJ IV SCH ×3 (12:14→23:46)
--- NOTE | 2019-06-06 12:31 | Progress Note ---
Assessment and Plan - Patient Problems (1) Perforated gastric ulcer Current Visit: Yes Status: Acute Plan to address problem: 63 yo M s/p exploratory laparotomy, omental patch of perforated gastric ulcer POD 4 1. sepsis 2. perforated gastric ulcer 3. severe malnutrition 4. b/l pleural effusions 5. bedbound 6. infected b/l LE wounds with likely chronic limb ischemia 7. cardiomyopathy 8. CHF Arterial duplex - no Plan: 1. Neuro - appears appropriate 2. CV - BP and HR stable. Cardiology on board 3. Resp - encourage pulm toilet 4. GI - Clears, TPN. TANESHA drain to bulb suction - monitor output. Protonix BID. Will continue clears for another 24 hours. If doing well, will advance to full liquid diet. Should not be advanced beyond this level. 5. Endo - Blood glucose monitoring per protocol 6. ID - intraop cultures prelim - janeth. Lower extremity wound cx prelim - gram neg. Continue abx per ID. Multiple infected wounds of LE - continue wound care per karate teacher 7. - garcia for strict I/Os. 8. Musc - DVT ppx. Offloading. Dr. Oakes managing LE for debridement vs amputation. Subjective Date of service: 06/06/19 Patient Reports: Positive: no new complaints, feels better, tolerating liquids well, flatus. Negative: nausea, vomiting, shortness of breath Objective Vital Signs - 12hr 06/06/19 06/06/19 06/06/19 00:30 01:00 01:30 Temperature Pulse Rate 112 H 105 H 105 H Pulse Rate [ Anterior Bilateral Throughout] Pulse Rate [ From Monitor] Respiratory 15 12 12 Rate Respiratory Rate [Anterior Bilateral Throughout] Blood Pressure 114/71 121/73 121/73 O2 Sat by Pulse 99 99 96 Oximetry 06/06/19 06/06/19 06/06/19 02:00 02:30 03:00 Temperature Pulse Rate 107 H 106 H 102 H Pulse Rate [ Anterior Bilateral Throughout] Pulse Rate [ From Monitor] Respiratory 15 12 13 Rate Respiratory Rate [Anterior Bilateral Throughout] Blood Pressure 109/65 109/65 112/69 O2 Sat by Pulse 98 97 99 Oximetry 06/06/19 06/06/19 06/06/19 03:30 03:46 04:00 Temperature 97.4 F L Pulse Rate 102 H 99 H Pulse Rate [ Anterior Bilateral Throughout] Pulse Rate [ 99 H From Monitor] Respiratory 14 18 12 Rate Respiratory Rate [Anterior Bilateral Throughout] Blood Pressure 112/69 120/67 O2 Sat by Pulse 100 95 Oximetry 06/06/19 06/06/19 06/06/19 04:30 05:00 05:30 Temperature Pulse Rate 103 H 100 H 94 H Pulse Rate [ Anterior Bilateral Throughout] Pulse Rate [ From Monitor] Respiratory 13 18 13 Rate Respiratory Rate [Anterior Bilateral Throughout] Blood Pressure 120/67 120/67 120/67 O2 Sat by Pulse 99 99 Oximetry 06/06/19 06/06/19 06/06/19 06:00 06:30 07:00 Temperature Pulse Rate 100 H 104 H 105 H Pulse Rate [ Anterior Bilateral Throughout] Pulse Rate [ From Monitor] Respiratory 11 L 24 11 L Rate Respiratory Rate [Anterior Bilateral Throughout] Blood Pressure 127/74 127/74 118/64 O2 Sat by Pulse 97 93 91 Oximetry 06/06/19 06/06/19 06/06/19 07:30 08:00 08:05 Temperature 97.7 F Pulse Rate 108 H 102 H Pulse Rate [ Anterior Bilateral Throughout] Pulse Rate [ 102 H From Monitor] Respiratory 13 12 Rate Respiratory Rate [Anterior Bilateral Throughout] Blood Pressure 118/64 113/73 O2 Sat by Pulse 72 L 98 96 Oximetry 06/06/19 06/06/19 06/06/19 08:25 08:30 12:14 Temperature Pulse Rate 99 H 107 H Pulse Rate [ 107 H Anterior Bilateral Throughout] Pulse Rate [ From Monitor] Respiratory 12 Rate Respiratory 20 Rate [Anterior Bilateral Throughout] Blood Pressure 113/73 120/74 O2 Sat by Pulse 100 Oximetry - General physical appearance no distress, no pain - Eyes normal occular movement - Respiratory normal expansion, normal respiratory effort - Abdomen soft, not tender, bowel sounds hypoactive, not distended, not guarding, not rigid, surgical scars (C/D/I), other (Minimal TANESHA drainage - serosang) - Psychiatric oriented to time, oriented to person, oriented to place, speech is normal, memory intact - Labs 06/05/19 04:20 06/06/19 04:20 Diabetes panel 06/06/19 Range/Units 04:20 Sodium 141 (137-145) mmol/L Potassium 3.6 (3.6-5.0) mmol/L Chloride 103.3 (98-107) mmol/L Carbon Dioxide 27 (22-30) mmol/L BUN 62 H (9-20) mg/dL Creatinine 1.1 (0.8-1.5) mg/dL Glucose 141 H (75-100) mg/dL Calcium 7.7 L (8.4-10.2) mg/dL Calcium panel 06/06/19 Range/Units 04:20 Calcium 7.7 L (8.4-10.2) mg/dL Phosphorus 2.40 L (2.5-4.5) mg/dL Pituitary panel 06/06/19 Range/Units 04:20 Sodium 141 (137-145) mmol/L Potassium 3.6 (3.6-5.0) mmol/L Chloride 103.3 (98-107) mmol/L Carbon Dioxide 27 (22-30) mmol/L BUN 62 H (9-20) mg/dL Creatinine 1.1 (0.8-1.5) mg/dL Glucose 141 H (75-100) mg/dL Calcium 7.7 L (8.4-10.2) mg/dL Adrenal panel 06/06/19 Range/Units 04:20 Sodium 141 (137-145) mmol/L Potassium 3.6 (3.6-5.0) mmol/L Chloride 103.3 (98-107) mmol/L Carbon Dioxide 27 (22-30) mmol/L BUN 62 H (9-20) mg/dL Creatinine 1.1 (0.8-1.5) mg/dL Glucose 141 H (75-100) mg/dL Calcium 7.7 L (8.4-10.2) mg/dL
[2019-06-06] MEDS ORDERED: TOTAL PARENTERAL NUTRITION 1,560 ML IV SCH (20:00)
[2019-06-07] MEDS: IPRATROPIUM/ALBUTEROL SULFATE 3 ML AMPUL.NEB IH SCH ×4 (02:46→22:30)
[2019-06-07] MEDS: METOPROLOL TARTRATE 5 MG/5 ML INJ IV SCH ×3 (06:05→18:09)
[2019-06-07] MEDS: FUROSEMIDE 40 MG/4 ML INJ IV SCH (06:05)
[2019-06-07] MEDS: HYDROmorphone 1 MG/1 ML INJ IV PRN ×3 (06:06→21:04)
[2019-06-07] MEDS: MEROPENEM/NS 500 MG/50 ML 500 MG/50 ML BAG IV SCH ×4 (06:12→23:08)
[2019-06-07 06:44] LABS: Hematocrit 33.7 % (35.5-45.6); Hemoglobin 10.8 gm/dl (11.8-15.2); Mean Corpuscular HGB Conc 32 % (32-34); Mean Corpuscular Volume 85 fl (84-94); Platelet Count 226 K/mm3 (140-440); Red Blood Count 3.95 M/mm3 (3.65-5.03)
[2019-06-07 06:57] LABS: BUN/Creatinine Ratio 73; Blood Urea Nitrogen 58 mg/dL (9-20); Hemolysis Index 8
[2019-06-07 07:20] LABS: Red Cell Distribution Width 26.7 % (13.2-15.2)
--- NOTE | 2019-06-07 08:35 | Progress Note ---
Assessment and Plan - Patient Problems (1) Acute respiratory failure Current Visit: Yes Status: Acute (2) Pleural effusion Current Visit: Yes Status: Acute (3) Pneumoperitoneum Current Visit: Yes Status: Acute (4) Prerenal azotemia Current Visit: Yes Status: Acute (5) Sepsis Current Visit: Yes Status: Acute Qualifiers: Sepsis type: sepsis due to unspecified organism Sepsis acute organ dysfunction status: unspecified Qualified Code(s): A41.9 - Sepsis, unspecified organism (6) CKD (chronic kidney disease) Current Visit: Yes Status: Chronic Qualifiers: (7) Cardiomyopathy Current Visit: Yes Status: Chronic Qualifiers: Cardiomyopathy type: unspecified Qualified Code(s): I42.9 - Cardiomyopathy, unspecified (8) Chronic HFrEF (heart failure with reduced ejection fraction) Current Visit: Yes Status: Chronic (9) Nonischemic cardiomyopathy Current Visit: Yes Status: Chronic (10) PAD (peripheral artery disease) Current Visit: Yes Status: Chronic (11) Pulmonary hypertension Current Visit: Yes Status: Chronic Subjective Principal diagnosis: perforated gastric ulcer Interval history: feels better Objective Vital Signs - 12hr 06/06/19 06/06/19 06/06/19 21:49 23:35 23:46 Temperature Pulse Rate 105 H 112 H Pulse Rate [ From Monitor] Pulse Rate [ Right Dorsalis Pedis] Respiratory 18 Rate Blood Pressure 133/78 132/66 Blood Pressure [Right] O2 Sat by Pulse 98 98 Oximetry 06/07/19 06/07/19 06/07/19 00:00 00:23 04:05 Temperature 98.5 F 97.9 F Pulse Rate 89 98 H Pulse Rate [ 89 From Monitor] Pulse Rate [ 89 Right Dorsalis Pedis] Respiratory 18 19 Rate Blood Pressure 122/74 Blood Pressure 133/78 [Right] O2 Sat by Pulse 98 93 Oximetry 06/07/19 06/07/19 06:05 08:22 Temperature 97.3 F L Pulse Rate 98 H Pulse Rate [ From Monitor] Pulse Rate [ Right Dorsalis Pedis] Respiratory 18 Rate Blood Pressure 122/74 118/69 Blood Pressure [Right] O2 Sat by Pulse 93 Oximetry Constitutional: no acute distress, alert Eyes: non-icteric ENT: oropharynx moist Neck: supple Effort: normal Ascultation: Bilateral: clear Cardiovascular: regular rate and rhythm (no mrg) Gastrointestinal: absent bowel sounds, non-tender Integumentary: other (necrotic ulcers lower extremities) Extremities: no cyanosis, edema (1+ generalized edema) Neurologic: normal mental status, non-focal exam Psychiatric: mood appropriate, affect normal CBC and BMP: 06/07/19 05:36 06/07/19 05:36 ABG, PT/INR, D-dimer: ABG POC ABG pH 7.432 (7.35-7.45) 06/05/19 05:39 POC ABG pCO2 38.2 (35-45) 06/05/19 05:39 POC ABG pO2 108 (80-105) H 06/05/19 05:39 POC ABG HCO3 25.5 (22-26 mml/L) 06/05/19 05:39 POC ABG Total CO2 27 (23-27mmol/L) 06/05/19 05:39 POC ABG O2 Sat 98 06/05/19 05:39 PT/INR, D-dimer PT 17.9 Sec. (12.2-14.9) H 06/02/19 07:15 INR 1.50 (0.87-1.13) H 06/02/19 07:15 Abnormal lab findings: Abnormal Labs 06/02/19 06/02/19 06/02/19 07:15 07:15 07:15 WBC 21.0 H RBC 5.17 H Hgb Hct MCH 27 L RDW 23.8 H Seg Neuts % (Manual) 97.0 H Lymphocytes % (Manual) 1.0 L Nucleated RBC % 3.0 H Seg Neutrophils # Man 20.4 H Lymphocytes # (Manual) 0.2 L PT 17.9 H INR 1.50 H POC ABG pH POC ABG pCO2 POC ABG pO2 VBG pH Sodium 130 L Chloride 97.1 L Carbon Dioxide 16 L BUN 47 H Glucose 139 H POC Glucose Lactic Acid Calcium Phosphorus Magnesium Total Bilirubin 6.40 H Direct Bilirubin 4.5 H AST 50 H Alkaline Phosphatase 179 H Ammonia Total Creatine Kinase 53 L CK-MB (CK-2) 5.1 H CK-MB (CK-2) Rel Index 9.6 H Troponin T NT-Pro-B Natriuret Pep > 35496 H Total Protein 5.8 L Albumin 2.1 L LDL Cholesterol Direct HDL Cholesterol Vancomycin Trough 06/02/19 06/02/19 06/02/19 07:15 07:15 07:15 WBC RBC Hgb Hct MCH RDW Seg Neuts % (Manual) Lymphocytes % (Manual) Nucleated RBC % Seg Neutrophils # Man Lymphocytes # (Manual) PT INR POC ABG pH POC ABG pCO2 POC ABG pO2 VBG pH 7.310 L Sodium Chloride Carbon Dioxide BUN Glucose POC Glucose Lactic Acid 2.40 H* Calcium Phosphorus Magnesium Total Bilirubin Direct Bilirubin AST Alkaline Phosphatase Ammonia 16.0 L Total Creatine Kinase CK-MB (CK-2) CK-MB (CK-2) Rel Index Troponin T NT-Pro-B Natriuret Pep Total Protein Albumin LDL Cholesterol Direct HDL Cholesterol Vancomycin Trough 06/02/19 06/02/19 06/02/19 07:15 15:33 15:53 WBC RBC Hgb Hct MCH RDW Seg Neuts % (Manual) Lymphocytes % (Manual) Nucleated RBC % Seg Neutrophils # Man Lymphocytes # (Manual) PT INR POC ABG pH 7.229 L POC ABG pCO2 49.5 H POC ABG pO2 VBG pH Sodium Chloride Carbon Dioxide BUN Glucose POC Glucose 66 L Lactic Acid Calcium Phosphorus Magnesium Total Bilirubin Direct Bilirubin AST Alkaline Phosphatase Ammonia Total Creatine Kinase CK-MB (CK-2) CK-MB (CK-2) Rel Index Troponin T 0.065 H NT-Pro-B Natriuret Pep Total Protein Albumin LDL Cholesterol Direct 31 L HDL Cholesterol 8 L Vancomycin Trough 06/02/19 06/02/19 06/03/19 16:40 17:10 04:06 WBC RBC Hgb Hct MCH RDW Seg Neuts % (Manual) Lymphocytes % (Manual) Nucleated RBC % Seg Neutrophils # Man Lymphocytes # (Manual) PT INR POC ABG pH 7.259 L POC ABG pCO2 33.9 L POC ABG pO2 221 H 146 H VBG pH Sodium Chloride Carbon Dioxide BUN Glucose POC Glucose 151 H Lactic Acid Calcium Phosphorus Magnesium Total Bilirubin Direct Bilirubin AST Alkaline Phosphatase Ammonia Total Creatine Kinase CK-MB (CK-2) CK-MB (CK-2) Rel Index Troponin T NT-Pro-B Natriuret Pep Total Protein Albumin LDL Cholesterol Direct HDL Cholesterol Vancomycin Trough 06/03/19 06/03/19 06/03/19 04:41 04:41 17:23 WBC 17.5 H RBC Hgb Hct MCH 27 L RDW 25.0 H Seg Neuts % (Manual) 96.0 H Lymphocytes % (Manual) 0 L Nucleated RBC % 1.0 H Seg Neutrophils # Man 16.8 H Lymphocytes # (Manual) 0.0 L PT INR POC ABG pH POC ABG pCO2 POC ABG pO2 VBG pH Sodium Chloride Carbon Dioxide 17 L BUN 42 H Glucose 59 L POC Glucose 113 H Lactic Acid Calcium Phosphorus Magnesium Total Bilirubin 7.00 H Direct Bilirubin AST Alkaline Phosphatase 153 H Ammonia Total Creatine Kinase CK-MB (CK-2) CK-MB (CK-2) Rel Index Troponin T NT-Pro-B Natriuret Pep Total Protein 5.9 L Albumin 1.7 L LDL Cholesterol Direct HDL Cholesterol Vancomycin Trough 06/03/19 06/04/19 06/04/19 23:37 05:10 05:10 WBC 16.7 H RBC Hgb Hct MCH 27 L RDW 24.5 H Seg Neuts % (Manual) 94.0 H Lymphocytes % (Manual) 3.0 L Nucleated RBC % Seg Neutrophils # Man 15.7 H Lymphocytes # (Manual) 0.5 L PT INR POC ABG pH POC ABG pCO2 POC ABG pO2 VBG pH Sodium Chloride Carbon Dioxide BUN 39 H Glucose 136 H POC Glucose 126 H Lactic Acid Calcium 8.3 L Phosphorus Magnesium 1.30 L Total Bilirubin 7.70 H Direct Bilirubin AST Alkaline Phosphatase 140 H Ammonia Total Creatine Kinase CK-MB (CK-2) CK-MB (CK-2) Rel Index Troponin T NT-Pro-B Natriuret Pep Total Protein 5.6 L Albumin 1.7 L LDL Cholesterol Direct HDL Cholesterol Vancomycin Trough 06/04/19 06/04/19 06/04/19 05:44 13:50 18:05 WBC RBC Hgb Hct MCH RDW Seg Neuts % (Manual) Lymphocytes % (Manual) Nucleated RBC % Seg Neutrophils # Man Lymphocytes # (Manual) PT INR POC ABG pH POC ABG pCO2 POC ABG pO2 VBG pH Sodium Chloride Carbon Dioxide BUN Glucose POC Glucose 124 H 137 H 120 H Lactic Acid Calcium Phosphorus Magnesium Total Bilirubin Direct Bilirubin AST Alkaline Phosphatase Ammonia Total Creatine Kinase CK-MB (CK-2) CK-MB (CK-2) Rel Index Troponin T NT-Pro-B Natriuret Pep Total Protein Albumin LDL Cholesterol Direct HDL Cholesterol Vancomycin Trough 06/05/19 06/05/19 06/05/19 00:58 04:20 04:20 WBC 15.0 H RBC Hgb Hct MCH 27 L RDW 25.0 H Seg Neuts % (Manual) Lymphocytes % (Manual) Nucleated RBC % Seg Neutrophils # Man Lymphocytes # (Manual) PT INR POC ABG pH POC ABG pCO2 POC ABG pO2 VBG pH Sodium Chloride Carbon Dioxide BUN 52 H Glucose 137 H POC Glucose 114 H Lactic Acid Calcium 7.8 L Phosphorus Magnesium Total Bilirubin Direct Bilirubin AST Alkaline Phosphatase Ammonia Total Creatine Kinase CK-MB (CK-2) CK-MB (CK-2) Rel Index Troponin T NT-Pro-B Natriuret Pep Total Protein Albumin LDL Cholesterol Direct HDL Cholesterol Vancomycin Trough 06/05/19 06/05/19 06/05/19 05:39 05:45 09:45 WBC RBC Hgb Hct MCH RDW Seg Neuts % (Manual) Lymphocytes % (Manual) Nucleated RBC % Seg Neutrophils # Man Lymphocytes # (Manual) PT INR POC ABG pH POC ABG pCO2 POC ABG pO2 108 H VBG pH Sodium Chloride Carbon Dioxide BUN Glucose POC Glucose 111 H Lactic Acid Calcium Phosphorus Magnesium Total Bilirubin Direct Bilirubin AST Alkaline Phosphatase Ammonia Total Creatine Kinase CK-MB (CK-2) CK-MB (CK-2) Rel Index Troponin T NT-Pro-B Natriuret Pep Total Protein Albumin LDL Cholesterol Direct HDL Cholesterol Vancomycin Trough 20.1 H 06/05/19 06/05/19 06/06/19 13:25 18:27 00:01 WBC RBC Hgb Hct MCH RDW Seg Neuts % (Manual) Lymphocytes % (Manual) Nucleated RBC % Seg Neutrophils # Man Lymphocytes # (Manual) PT INR POC ABG pH POC ABG pCO2 POC ABG pO2 VBG pH Sodium Chloride Carbon Dioxide BUN Glucose POC Glucose 152 H 194 H 153 H Lactic Acid Calcium Phosphorus Magnesium Total Bilirubin Direct Bilirubin AST Alkaline Phosphatase Ammonia Total Creatine Kinase CK-MB (CK-2) CK-MB (CK-2) Rel Index Troponin T NT-Pro-B Natriuret Pep Total Protein Albumin LDL Cholesterol Direct HDL Cholesterol Vancomycin Trough 06/06/19 06/06/19 06/06/19 04:20 05:45 12:32 WBC RBC Hgb Hct MCH RDW Seg Neuts % (Manual) Lymphocytes % (Manual) Nucleated RBC % Seg Neutrophils # Man Lymphocytes # (Manual) PT INR POC ABG pH POC ABG pCO2 POC ABG pO2 VBG pH Sodium Chloride Carbon Dioxide BUN 62 H Glucose 141 H POC Glucose 161 H 131 H Lactic Acid Calcium 7.7 L Phosphorus 2.40 L Magnesium Total Bilirubin Direct Bilirubin AST Alkaline Phosphatase Ammonia Total Creatine Kinase CK-MB (CK-2) CK-MB (CK-2) Rel Index Troponin T NT-Pro-B Natriuret Pep Total Protein Albumin LDL Cholesterol Direct HDL Cholesterol Vancomycin Trough 06/07/19 06/07/19 05:36 05:36 WBC 25.3 H RBC Hgb 10.8 L Hct 33.7 L MCH 27 L RDW 26.7 H Seg Neuts % (Manual) Lymphocytes % (Manual) Nucleated RBC % Seg Neutrophils # Man Lymphocytes # (Manual) PT INR POC ABG pH POC ABG pCO2 POC ABG pO2 VBG pH Sodium 135 L Chloride 93.6 L Carbon Dioxide BUN 58 H Glucose 131 H POC Glucose Lactic Acid Calcium 8.0 L Phosphorus Magnesium Total Bilirubin Direct Bilirubin AST Alkaline Phosphatase Ammonia Total Creatine Kinase CK-MB (CK-2) CK-MB (CK-2) Rel Index Troponin T NT-Pro-B Natriuret Pep Total Protein Albumin LDL Cholesterol Direct HDL Cholesterol Vancomycin Trough
[2019-06-07] MEDS: ARFORMOTEROL 15 MCG/2 ML NEBU IH SCH ×2 (08:48→22:31)
--- NOTE | 2019-06-07 09:53 | Progress Note ---
Assessment and Plan Cultures Blood culture 06/02/19 no growth to date Urine culture 06/02/19 no growth to date Surgical culture 06/02/19 Suni albicans Wound culture right foot 06/02/2019 - PsA, Morganella wound culture left foot 06/03/19 - GNR 1 and 2 Surgical foot culture Left 06/05/2019 - pending Surgical foot culture right 06/05/2019 - GNR Assessment: 63 yo M significant cardiac PMHx, chronic bilateral wounds admitted with small perforated gastric ulcer. 1. Acute sepsis -present with tachycardia, leukocytosis. Likely secondary to perforated gastric ulcer vs infected chronic wounds 2. Infected bilateral infected wounds - his wounds are markedly worse than previous, even before considering how purulent they are. Comparing to the recent pictures from his March admission, there is considerable necrosis and purulence. I have severe concern for the viability of these limbs. Surgery is already on board, recommend they evaluate the legs for debridment vs amputation. Would get culture of pus. Continue antibiotics pending results. Recs: - continue meropenem 500mg q6h - continue vancomycin with pharmacy dosing, Goal trough 15-20. Can likely de- escalate pending finalization of culture - follow up surgical recommendations of leg wounds. Dr. Oakes was consulted for possible amputation. - Suni in abdomen not surprising, however will add fluconazole 400mg q24h. Monitor QTc while on fluconazole given cardiac history. [facility] ([facility] M: [phone] O: [phone] F: [phone] Subjective Date of service: 06/07/19 Principal diagnosis: perforated gastric ulcer Interval history: Extubated, refusing surgery. Objective - Exam Narrative Exam: General No distress, in bed. Eyes - PERRLA, EOM intact ENT - Moist mucous membranes, no lymphadenopathy Neck - No noticeable or palpable swelling, redness or rash around throat or on face Lymph Nodes - No lymphadenopathy Cardiovascular - RRR no m/r/g, no JVD, no carotid bruits Lungs - Clear to auscultation, no use of accessory muscles, no crackles or wheezes. Skin - Bilateral LE wounds, both feet under gauze. Noted pictures in chart. Abdomen - Normal bowel sounds, abdomen soft and nontender Extremities - No edema, cyanosis or clubbing - Constitutional Vitals: Vital Signs Temp Pulse Resp BP Pulse Ox 97.3 F L 92 H 18 118/69 93 06/07/19 08:22 06/07/19 09:00 06/07/19 09:00 06/07/19 08:22 06/07/19 09:12 Temperature -Last 24 Hours Temperature 97.3 F Temperature 97.9 F Temperature 98.5 F Temperature 97.6 F Temperature 98.5 F Temperature 97.4 F Temperature 97.6 F Temperature 97.7 F - Labs CBC & Chem 7: 06/07/19 05:36 06/07/19 05:36 Labs: Abnormal lab results 06/06/19 06/07/19 06/07/19 Range/Units 12:32 05:36 05:36 WBC 25.3 H (4.5-11.0) K/mm3 Hgb 10.8 L (11.8-15.2) gm/dl Hct 33.7 L (35.5-45.6) % MCH 27 L (28-32) pg RDW 26.7 H (13.2-15.2) % POC ABG pH (7.35-7.45) POC ABG pO2 (80-105) Sodium 135 L (137-145) mmol/L Chloride 93.6 L (98-107) mmol/L BUN 58 H (9-20) mg/dL Glucose 131 H (75-100) mg/dL POC Glucose 131 H (70-105) Calcium 8.0 L (8.4-10.2) mg/dL 06/07/19 Range/Units 09:44 WBC (4.5-11.0) K/mm3 Hgb (11.8-15.2) gm/dl Hct (35.5-45.6) % MCH (28-32) pg RDW (13.2-15.2) % POC ABG pH 7.508 H (7.35-7.45) POC ABG pO2 75 L (80-105) Sodium (137-145) mmol/L Chloride (98-107) mmol/L BUN (9-20) mg/dL Glucose (75-100) mg/dL POC Glucose (70-105) Calcium (8.4-10.2) mg/dL
--- NOTE | 2019-06-07 09:56 | Progress Note ---
Assessment and Plan Will increase IV metoprolol until PO home cardiac medications are resumed. Continue other current management for now. The patient has been seen in conjunction with Dr. Melia Baird, who agrees with the assessment and plan. - Patient Problems (1) Pneumoperitoneum Current Visit: Yes Status: Acute (2) Perforated gastric ulcer Current Visit: Yes Status: Acute (3) Acute respiratory failure Current Visit: Yes Status: Acute (4) Wounds, multiple Current Visit: Yes Status: Chronic (5) Sepsis Current Visit: Yes Status: Acute Qualifiers: Qualified Code(s): A41.9 - Sepsis, unspecified organism (6) Cardiomyopathy Current Visit: Yes Status: Chronic Qualifiers: Qualified Code(s): I42.9 - Cardiomyopathy, unspecified (7) Chronic HFrEF (heart failure with reduced ejection fraction) Current Visit: Yes Status: Chronic (8) HTN (hypertension) Current Visit: Yes Status: Chronic Qualifiers: Qualified Code(s): I10 - Essential (primary) hypertension (9) NSVT (nonsustained ventricular tachycardia) Current Visit: Yes Status: Acute (10) Nonischemic cardiomyopathy Current Visit: Yes Status: Chronic (11) PAD (peripheral artery disease) Current Visit: Yes Status: Chronic (12) Pulmonary hypertension Current Visit: Yes Status: Chronic (13) Sinus node dysfunction Current Visit: Yes Status: Chronic (14) Pulmonary hypertension Current Visit: No Status: Acute (15) Noncompliance Current Visit: No Status: Chronic Subjective Date of service: 06/07/19 Principal diagnosis: perforated gastric ulcer Interval history: The patient is resting in bed in NAD. No complaints. Telemetry reviewed - ST in 100s. Objective Last Vital Signs Temp 97.3 F L 06/07/19 08:22 Pulse 92 H 06/07/19 09:00 Resp 18 06/07/19 09:00 BP 118/69 06/07/19 08:22 Pulse Ox 93 06/07/19 09:12 - Physical Examination General: No Apparent Distress HEENT: Positive: EOMI, Normocephaly, Mucus Membranes Moist Neck: Positive: neck supple, trachea midline, Carotid Upstroke (full) Cardiac: Positive: Regular Rhythm Lungs: Positive: Normal Exam Neuro: Positive: Grossly Intact Abdomen: Positive: Soft /Rectal: Other (deferred) Skin: Positive: Other (multiple wounds on both lower extremities with areas of ischemic ulceration.) Musculoskeletal: Normal Range of Motion Extremities: Present: lower extr. pulses (LLE difficult to palpate d/t wound dressing and ischemic ulceration), Other (LLE - pulse difficult to palpate d/t wounds ) - Labs and Meds CBC 06/07/19 Range/Units 05:36 WBC 25.3 H (4.5-11.0) K/mm3 RBC 3.95 (3.65-5.03) M/mm3 Hgb 10.8 L (11.8-15.2) gm/dl Hct 33.7 L (35.5-45.6) % Plt Count 226 (140-440) K/mm3 Comprehensive Metabolic Panel 06/07/19 Range/Units 05:36 Sodium 135 L (137-145) mmol/L Potassium 3.6 (3.6-5.0) mmol/L Chloride 93.6 L (98-107) mmol/L Carbon Dioxide 28 (22-30) mmol/L BUN 58 H (9-20) mg/dL Creatinine 0.8 (0.8-1.5) mg/dL Glucose 131 H (75-100) mg/dL Calcium 8.0 L (8.4-10.2) mg/dL - Imaging and Cardiology EKG: image reviewed Echo: report reviewed (02/28/19 showed EF of 10-15%, dilation of all chambers, moderate AR, moderate to severe TR and RV hypokinesis. ) Cardiac cath: report reviewed (04/2017 showed patent coronaries, EF 10-15%. ) - Telemetry EKG Rhythm: Sinus Tachycardia - EKG Sinus rhythms and dysrhythmias: sinus rhythm Chamber hypertrophy or enlargement: left ventricular hypertro Repolarization changes or abnormalities: repolarization abn secondary to ventricular hypertrophy Myocardial infarction: septal [place] (old age or ind
[2019-06-07] MEDS: FLUCONAZOLE 400 MG 200 ML IV SCH (11:05)
[2019-06-07] MEDS: PANTOPRAZOLE 40 MG INJ IV SCH ×2 (11:07→22:00)
[2019-06-07] MEDS: VANCOMYCIN 750 MG in SODIUM CHLORIDE 0.9% 250ML 250 ML IV SCH (12:30)
--- NOTE | 2019-06-07 14:02 | Progress Note ---
Assessment and Plan - Patient Problems (1) Perforated gastric ulcer Current Visit: Yes Status: Acute Plan to address problem: 63 yo M s/p exploratory laparotomy, omental patch of perforated gastric ulcer POD 5 1. sepsis 2. perforated gastric ulcer 3. severe malnutrition 4. b/l pleural effusions 5. bedbound 6. infected b/l LE wounds with likely chronic limb ischemia 7. cardiomyopathy 8. CHF Arterial duplex - no Plan: 1. Neuro - appears appropriate 2. CV - BP and HR stable. Cardiology on board 3. Resp - encourage pulm toilet 4. GI - TPN. Protonix BID. Advance to full liquid diet. Should not be advanced beyond this level. 5. Endo - Blood glucose monitoring per protocol 6. ID - intraop cultures prelim - janeth. Lower extremity wound cx prelim - gram neg. Continue abx per ID. Multiple infected wounds of LE - continue wound care per director of analytical development. Leg wounds probably account for spike in WBC. Abd not impressive at this time. 7. - garcia for strict I/Os. 8. Musc - DVT ppx. Offloading. Dr. Oakes managing LE for debridement vs amputation. Please call with questions. Subjective Date of service: 06/07/19 Patient Reports: Positive: no new complaints, tolerating liquids well. Negative: nausea, vomiting Objective Vital Signs - 12hr 06/07/19 06/07/19 06/07/19 04:05 06:05 08:22 Temperature 97.9 F 97.3 F L Pulse Rate 98 H 98 H Pulse Rate [ Anterior Bilateral Throughout] Respiratory 19 18 Rate Respiratory Rate [Anterior Bilateral Throughout] Blood Pressure 122/74 122/74 118/69 O2 Sat by Pulse 93 93 Oximetry 06/07/19 06/07/19 06/07/19 09:00 09:12 12:05 Temperature 98.3 F Pulse Rate Pulse Rate [ 92 H Anterior Bilateral Throughout] Respiratory 18 Rate Respiratory 18 Rate [Anterior Bilateral Throughout] Blood Pressure 109/75 O2 Sat by Pulse 93 Oximetry - General physical appearance no distress, no pain - Respiratory normal expansion, normal respiratory effort - Abdomen soft, not tender, bowel sounds hypoactive, not distended, not guarding, not ri gid, surgical scars (C/D/I), other (TANESHA with minimal serous drainage. Removed easily. ) - Labs 06/07/19 05:36 06/07/19 05:36 Diabetes panel 06/07/19 Range/Units 05:36 Sodium 135 L (137-145) mmol/L Potassium 3.6 (3.6-5.0) mmol/L Chloride 93.6 L (98-107) mmol/L Carbon Dioxide 28 (22-30) mmol/L BUN 58 H (9-20) mg/dL Creatinine 0.8 (0.8-1.5) mg/dL Glucose 131 H (75-100) mg/dL Calcium 8.0 L (8.4-10.2) mg/dL Calcium panel 06/07/19 Range/Units 05:36 Calcium 8.0 L (8.4-10.2) mg/dL Phosphorus 2.60 (2.5-4.5) mg/dL Pituitary panel 06/07/19 Range/Units 05:36 Sodium 135 L (137-145) mmol/L Potassium 3.6 (3.6-5.0) mmol/L Chloride 93.6 L (98-107) mmol/L Carbon Dioxide 28 (22-30) mmol/L BUN 58 H (9-20) mg/dL Creatinine 0.8 (0.8-1.5) mg/dL Glucose 131 H (75-100) mg/dL Calcium 8.0 L (8.4-10.2) mg/dL Adrenal panel 06/07/19 Range/Units 05:36 Sodium 135 L (137-145) mmol/L Potassium 3.6 (3.6-5.0) mmol/L Chloride 93.6 L (98-107) mmol/L Carbon Dioxide 28 (22-30) mmol/L BUN 58 H (9-20) mg/dL Creatinine 0.8 (0.8-1.5) mg/dL Glucose 131 H (75-100) mg/dL Calcium 8.0 L (8.4-10.2) mg/dL
--- NOTE | 2019-06-07 14:14 | Progress Note ---
Assessment and Plan Assessment and plan: Patient is a 63 yo man with a history of NICMP, chronic HFrEF 10-15%, NSVT declines LifeVest/AICD, CKD 3, HTN and mod to severe TR, b/l LE wounds, bedbound who presents to [facility] ED with c/o abdominal pain for 3 days. He had multiple bilateral lower extremity wound and stage I to 2 lower extremity ulcer covered with pus. CT abdomen and pelvis suggestive of pneumoperitoneum. General surgery has been consulted and patient was taken for OR for exploratory laparotomy by general surgeon. He also received empiric antibiotics, blood culture wound culture has been ordered. Perforated gastric ulcer. - - General surgery consulted for perforated bowel - s/p exploratory laparotomy, omental patch of perforated gastric ulcer by Dr. Sims, Surgeon, POD 2 - cont empiric abx,cautious IV fluid, may need to start on TPN - NPO now, cont PPI ggt Sepsis with bilateral lower extremity cellulitis/infected ulcer and perforated bowel - Continue empiric antibiotics, obtain blood cultures, wound culture - Wound care consult placed, -ID Physician following bilateral lower extremity cellulitis/infected ulcer - from PVD - s/p bilateral I and D done 06/[address] Oakes,Surgeon Moderate b/l pleural effusion CHFrEF 10-15% - Cardiology consulted - monitor ins/os, daily lasix iv to prevent fluid overload Chronic systolic CHF cardiology following Severe protein calorie malnutrition - nutrition consult, may need TPN CKD stage III, monitor renal function, avoid nephrotoxin - renal function stable Elevated bilirubin, trend LFT Severe metabolic acidosis likely due to perforated bowel - bicarbonate as needed Acute respiratory failure following surgery - CC following, cont nebs, -Extubated 06/05 - Provide GI and DVT prophylaxis History Interval history: s/p abdominal surgery Extubated 06/05 Started on clear liquid diet Hospitalist Physical - Physical exam Narrative exam: Gen: Not in acute distress, lying in bed, HEENT: Normocephalic, atraumatic Neck: supple, no JVD Heart: S1 and S2 reg, no murmurs, rubs or gallop Lungs: Clear to auscultation bilaterally, Abd: soft, NT, wound dry, surgical drain, Ext: Dressing over wounds both legs, no cyanosis, swelling both upper and lower ext, Neuro: awake,alert,oriented, moves all ext - Constitutional Vitals: Temp Pulse Resp BP Pulse Ox 98.3 F 92 H 18 109/75 93 06/07/19 12:05 06/07/19 09:00 06/07/19 12:05 06/07/19 12:05 06/07/19 09:12 General appearance: Present: no acute distress Results - Labs CBC & Chem 7: 06/07/19 05:36 06/07/19 05:36 Labs: Laboratory Last Values WBC 25.3 K/mm3 (4.5-11.0) H 06/07/19 05:36 RBC 3.95 M/mm3 (3.65-5.03) 06/07/19 05:36 Hgb 10.8 gm/dl (11.8-15.2) L 06/07/19 05:36 Hct 33.7 % (35.5-45.6) L 06/07/19 05:36 MCV 85 fl (84-94) 06/07/19 05:36 MCH 27 pg (28-32) L 06/07/19 05:36 MCHC 32 % (32-34) 06/07/19 05:36 RDW 26.7 % (13.2-15.2) H 06/07/19 05:36 Plt Count 226 K/mm3 (140-440) 06/07/19 05:36 Add Manual Diff Complete 06/04/19 05:10 Total Counted 100 06/04/19 05:10 Seg Neutrophils % Product Manager Medical Device 06/04/19 05:10 Seg Neuts % (Manual) 94.0 % (40.0-70.0) H 06/04/19 05:10 Band Neutrophils % 0 % 06/04/19 05:10 Lymphocytes % (Manual) 3.0 % (13.4-35.0) L 06/04/19 05:10 Reactive Lymphs % (Man) 0 % 06/04/19 05:10 Monocytes % (Manual) 2.0 % (0.0-7.3) 06/04/19 05:10 Eosinophils % (Manual) 1.0 % (0.0-4.3) 06/04/19 05:10 Basophils % (Manual) 0 % (0.0-1.8) 06/04/19 05:10 Metamyelocytes % 0 % 06/04/19 05:10 Myelocytes % 0 % 06/04/19 05:10 Promyelocytes % 0 % 06/04/19 05:10 Blast Cells % 0 % 06/04/19 05:10 Nucleated RBC % Not Reportable 06/04/19 05:10 Seg Neutrophils # Man 15.7 K/mm3 (1.8-7.7) H 06/04/19 05:10 Band Neutrophils # 0.0 K/mm3 06/04/19 05:10 Lymphocytes # (Manual) 0.5 K/mm3 (1.2-5.4) L 06/04/19 05:10 Abs React Lymphs (Man) 0.0 K/mm3 06/04/19 05:10 Monocytes # (Manual) 0.3 K/mm3 (0.0-0.8) 06/04/19 05:10 Eosinophils # (Manual) 0.2 K/mm3 (0.0-0.4) 06/04/19 05:10 Basophils # (Manual) 0.0 K/mm3 (0.0-0.1) 06/04/19 05:10 Metamyelocytes # 0.0 K/mm3 06/04/19 05:10 Myelocytes # 0.0 K/mm3 06/04/19 05:10 Promyelocytes # 0.0 K/mm3 06/04/19 05:10 Blast Cells # 0.0 K/mm3 06/04/19 05:10 WBC Morphology Not Reportable 06/04/19 05:10 Hypersegmented Neuts Not Reportable 06/04/19 05:10 Hyposegmented Neuts Not Reportable 06/04/19 05:10 Hypogranular Neuts Not Reportable 06/04/19 05:10 Smudge Cells Not Reportable 06/04/19 05:10 Toxic Granulation Not Reportable 06/04/19 05:10 Toxic Vacuolation Not Reportable 06/04/19 05:10 Dohle Bodies Not Reportable 06/04/19 05:10 Pelger-Huet Anomaly Not Reportable 06/04/19 05:10 Romero Rods Not Reportable 06/04/19 05:10 Platelet Estimate Consistent w auto 06/04/19 05:10 Clumped Platelets Not Reportable 06/04/19 05:10 Plt Clumps, EDTA Not Reportable 06/04/19 05:10 Large Platelets Not Reportable 06/04/19 05:10 Giant Platelets Not Reportable 06/04/19 05:10 Platelet Satelliting Not Reportable 06/04/19 05:10 Plt Morphology Comment Not Reportable 06/04/19 05:10 RBC Morphology Not Reportable 06/04/19 05:10 Dimorphic RBCs Not Reportable 06/04/19 05:10 Polychromasia Not Reportable 06/04/19 05:10 Hypochromasia Few 06/04/19 05:10 Poikilocytosis Not Reportable 06/04/19 05:10 Anisocytosis 1+ 06/04/19 05:10 Microcytosis Not Reportable 06/04/19 05:10 Macrocytosis Not Reportable 06/04/19 05:10 Spherocytes Not Reportable 06/04/19 05:10 Pappenheimer Bodies Not Reportable 06/04/19 05:10 Sickle Cells Not Reportable 06/04/19 05:10 Target Cells 1+ 06/04/19 05:10 Tear Drop Cells Not Reportable 06/04/19 05:10 Ovalocytes Not Reportable 06/04/19 05:10 Helmet Cells Not Reportable 06/04/19 05:10 [place]inta Bodies Not Reportable 06/04/19 05:10 [place] Rings Not Reportable 06/04/19 05:10 [place] Cells Not Reportable 06/04/19 05:10 Bite Cells Not Reportable 06/04/19 05:10 Crenated Cell Not Reportable 06/04/19 05:10 Elliptocytes Not Reportable 06/04/19 05:10 Acanthocytes (Spur) Not Reportable 06/04/19 05:10 Rouleaux Not Reportable 06/04/19 05:10 Hemoglobin C Crystals Not Reportable 06/04/19 05:10 Schistocytes Not Reportable 06/04/19 05:10 Malaria parasites Not Reportable 06/04/19 05:10 Bunny Bodies Not Reportable 06/04/19 05:10 Hem Pathologist Commnt No 06/04/19 05:10 PT 17.9 Sec. (12.2-14.9) H 06/02/19 07:15 INR 1.50 (0.87-1.13) H 06/02/19 07:15 APTT 33.2 Sec. (24.2-36.6) 06/02/19 07:15 POC ABG pH 7.508 (7.35-7.45) H 06/07/19 09:44 POC ABG pCO2 41.5 (35-45) 06/07/19 09:44 POC ABG pO2 75 (80-105) L 06/07/19 09:44 POC ABG HCO3 33.0 (22-26 mml/L) 06/07/19 09:44 POC ABG Total CO2 34 (23-27mmol/L) 06/07/19 09:44 POC ABG O2 Sat 96 06/07/19 09:44 POC ABG Base Excess 10 ((-2) - (+3)mmol/L) 06/07/19 09:44 VBG pH 7.310 (7.320-7.420) L 06/02/19 07:15 FiO2 21 % 06/07/19 09:44 Sodium 135 mmol/L (137-145) L 06/07/19 05:36 Potassium 3.6 mmol/L (3.6-5.0) 06/07/19 05:36 Chloride 93.6 mmol/L (98-107) L 06/07/19 05:36 Carbon Dioxide 28 mmol/L (22-30) 06/07/19 05:36 Anion Gap 17 mmol/L 06/07/19 05:36 BUN 58 mg/dL (9-20) H 06/07/19 05:36 Creatinine 0.8 mg/dL (0.8-1.5) 06/07/19 05:36 Estimated GFR > 60 ml/min 06/07/19 05:36 BUN/Creatinine Ratio 73 % 06/07/19 05:36 Glucose 131 mg/dL (75-100) H 06/07/19 05:36 POC Glucose 165 (70-105) H 06/07/19 02:07 Lactic Acid 1.10 mmol/L (0.7-2.0) 06/02/19 09:17 Calcium 8.0 mg/dL (8.4-10.2) L 06/07/19 05:36 Phosphorus 2.60 mg/dL (2.5-4.5) 06/07/19 05:36 Magnesium 2.10 mg/dL (1.7-2.3) 06/07/19 05:36 Total Bilirubin 7.70 mg/dL (0.1-1.2) H 06/04/19 05:10 Direct Bilirubin 4.5 mg/dL (0-0.2) H 06/02/19 07:15 Indirect Bilirubin 1.9 mg/dL 06/02/19 07:15 AST 30 units/L (5-40) 06/04/19 05:10 ALT 29 units/L (7-56) 06/04/19 05:10 Alkaline Phosphatase 140 units/L (35-129) H 06/04/19 05:10 Ammonia 16.0 umol/L (25-60) L 06/02/19 07:15 Total Creatine Kinase 53 units/L (55-170) L 06/02/19 07:15 CK-MB (CK-2) 5.1 ng/mL (0.0-4.0) H 06/02/19 07:15 CK-MB (CK-2) Rel Index 9.6 (0-4) H 06/02/19 07:15 Troponin T 0.065 ng/mL (0.00-0.029) H 06/02/19 07:15 NT-Pro-B Natriuret Pep > 78844 pg/mL (0-900) H 06/02/19 07:15 Total Protein 5.6 g/dL (6.3-8.2) L 06/04/19 05:10 Albumin 1.7 g/dL (3.9-5) L 06/04/19 05:10 Albumin/Globulin Ratio 0.4 % 06/04/19 05:10 Triglycerides 112 mg/dL (2-149) 06/02/19 07:15 Cholesterol 73 mg/dL (50-199) 06/02/19 07:15 LDL Cholesterol Direct 31 mg/dL (50-130) L 06/02/19 07:15 HDL Cholesterol 8 mg/dL (40-59) L 06/02/19 07:15 Cholesterol/HDL Ratio 9.12 % 06/02/19 07:15 Lipase 56 units/L (13-60) 06/02/19 07:15 Urine Color [place] (Yellow) 06/02/19 10:37 Urine Turbidity Clear (Clear) 06/02/19 10:37 Urine pH 5.0 (5.0-7.0) 06/02/19 10:37 Ur Specific [place] 1.019 (1.003-1.030) 06/02/19 10:37 Urine Protein <15 mg/dl mg/dL (Negative) 06/02/19 10:37 Urine Glucose (UA) 50 mg/dL (Negative) 06/02/19 10:37 Urine Ketones Neg mg/dL (Negative) 06/02/19 10:37 Urine Blood Neg (Negative) 06/02/19 10:37 Urine Nitrite Neg (Negative) 06/02/19 10:37 Urine Bilirubin Neg (Negative) 06/02/19 10:37 Urine Urobilinogen 4.0 mg/dL (<2.0) 06/02/19 10:37 Ur Leukocyte Esterase Neg (Negative) 06/02/19 10:37 Urine WBC (Auto) 2.0 /HPF (0.0-6.0) 06/02/19 10:37 Urine RBC (Auto) 2.0 /HPF (0.0-6.0) 06/02/19 10:37 Urine Bacteria (Auto) 1+ /HPF (Negative) 06/02/19 10:37 Vancomycin Trough 20.1 ug/mL (5.0-20.0) H 06/05/19 09:45 Blood Type A POSITIVE 06/02/19 11:55 Antibody Screen Negative 06/02/19 11:55 Active Medications - Current Medications Current Medications: Generic Name Dose Route Start Last Admin Trade Name Freq PRN Reason Stop Dose Admin Albuterol 2.5 mg 06/02/19 11:28 Proventil IH Q4H PRN Shortness Of Breath Albuterol/Ipratropium 1 ampul 06/06/19 20:00 06/07/19 08:48 Duoneb *Not For Prn Use* IH 1 ampul Q6HRT ROSE Administration Arformoterol Tartrate 15 mcg 06/02/19 20:00 06/07/19 08:48 Brovana Nebu IH 15 mcg Q12HRT ROSE Administration Budesonide 0.5 mg 06/02/19 20:00 06/06/19 21:46 Pulmicort IH 0.5 mg Q12HRT ROSE Administration Furosemide 40 mg 06/03/19 13:00 06/07/19 06:05 Lasix IV 40 mg DAILY@0600 ROSE Administration Hydromorphone HCl 0.25 mg 06/05/19 10:55 06/07/19 11:06 Dilaudid IV 0.25 mg Q3H PRN Administration Pain , Severe (7-10) Meropenem 500 mg in 50 mls @ 50 mls/hr 06/02/19 17:00 06/07/19 11:11 Merrem/Ns 500 Mg/50 Ml IV 50 mls/hr Q6H ROSE Administration Fluconazole 200 mls @ 100 mls/hr 06/04/19 13:00 06/06/19 09:50 Diflucan IV 100 mls/hr Q24HR ROSE Administration Protocol Vancomycin HCl 750 mg/ Sodium 265 mls @ 166.667 mls/hr 06/06/19 10:00 06/06/19 09:51 Chloride IV 166.667 mls/hr Q24HR ROSE Administration Amino Acids/Electrolytes/Dextrose 1,560 mls @ 65 mls/hr 06/06/19 20:00 06/06/19 20:02 Tpn Adult IV 06/07/19 19:59 65 mls/hr DAILY@1999 ROSE Administration Protocol Amino Acids/Electrolytes/Dextrose 1,560 mls @ 65 mls/hr 06/07/19 20:00 Tpn Adult IV 06/08/19 19:59 DAILY@1999 [facility] Protocol Metoprolol Tartrate 5 mg 06/07/19 12:00 Metoprolol IV Q6HR ROSE Pantoprazole Sodium 40 mg 06/04/19 10:00 06/07/19 11:07 Protonix IV 40 mg BID ROSE Administration Sodium Hypochlorite 1 applic 06/05/19 22:00 06/06/19 22:48 Dakin's Half Strength TP 1 applicatio BID ROSE Administration Nutrition/Malnutrition Assess - Dietary Evaluation Nutrition/Malnutrition Findings: Nutrition Notes Start: 06/03/19 11:22 Freq: Status: Active Protocol: Document 06/07/19 13:50 LM (Rec: 06/07/19 14:00 LM [id number]) Nutrition Notes Initial or Follow up Reassessment Current Diagnosis CKD(stage I-IV),Decubitus( Pressure Ulcer),Sepsis, Hypertension,Heart Failure Other Pertinent Diagnosis Perforated viscus S/P exp lap Current Diet CPN at 65 ml/hr and cl liq Labs/Tests BUN 58 Na 135 BG 131 Pertinent Medications Lasix Height 5 ft 7 in Weight 61.1 kg [place] Body Weight (kg) 67.27 BMI 21.1 Subjective/Other Information CPN day 4. Pt drinking about 50% of cl liq. Pt did not receive Ensure clear this AM. Brought pt 2 Ensure clears to try. Percent of energy/protein needs met: 71%/100% (cl liq + CPN) Burn Absent Trauma Absent GI Symptoms None Current % PO Negligible Minimum of two criteria Yes Body Fat Depletion Mild depletion (non-severe) Muscle Mass Mild Depletion (non-severe) Fluid Accumulation Mild (non-severe) Reduced Supervisor Education Strength Measurably Reduced (severe) #1 Nutrition Diagnosis Malnutrition Diagnosis Progress(for reassessment Continues documentation) Is patient on ventilator? No Is Patient Ambulatory and/or Out of Bed No REE-([facility]-confined to bed) 9077.402 Calculation Used for Recommendations Kcal/kg Additional Notes Protein: 36-92g (0.6-1.5g/kg) pt with CKD and malnutrition Fluid: 1 ml/kcal or per MD Nutrition Intervention Change Diet Order: CPN and clear liquids Nutrition Support: CPN at 65 ml/hr: 16% dextrose, 140 mEq Na, 100 mEq K, MVI; 1702 mOsmol Kcal 1,202 Protein (gm) 88 Carbohydrates (gm) 250 Fat (gm) 0 Fluid (mL) 1,560 Fiber (gm) 0 Goal #1 CPN and clear liquids to meet needs as best as possible Goal #2 Diet advancement when medically feasible Anticipated Discharge Needs: Unable to determine at this time Follow-Up By: 06/08/19 Additional Comments Labs in AM: BMP, Mg, Phos F/U for intakes, ONS tolerance , diet advancement
[2019-06-07] MEDS: BUDESONIDE 0.5 MG/2 ML NEBU IH SCH ×2 (15:50→22:31)
[2019-06-07] MEDS: SODIUM HYPOCHLORITE, DAKIN'S 1/2 STRENGTH (0.25%) 473 ML TOPICAL SOLN TP SCH (19:08)
[2019-06-07] MEDS ORDERED: TOTAL PARENTERAL NUTRITION 1,560 ML IV SCH (20:00)
[2019-06-08] MEDS: POTASSIUM CHLORIDE 10 MEQ 10 MEQ/100 ML BAG IV SCH ×4 (02:08→05:15)
[2019-06-08] MEDS: HYDROmorphone 1 MG/1 ML INJ IV PRN ×4 (02:59→23:08)
[2019-06-08] MEDS: IPRATROPIUM/ALBUTEROL SULFATE 3 ML AMPUL.NEB IH SCH ×4 (03:59→22:47)
[2019-06-08] MEDS: MEROPENEM/NS 500 MG/50 ML 500 MG/50 ML BAG IV SCH ×4 (05:30→22:42)
[2019-06-08 05:42] LABS: Hematocrit 27.3 % (35.5-45.6); Hemoglobin 8.8 gm/dl (11.8-15.2); Mean Corpuscular HGB Conc 32 % (32-34); Mean Corpuscular Volume 85 fl (84-94); Platelet Count 241 K/mm3 (140-440); Red Blood Count 3.21 M/mm3 (3.65-5.03)
[2019-06-08 05:56] LABS: Red Cell Distribution Width 27.7 % (13.2-15.2)
[2019-06-08 06:03] LABS: BUN/Creatinine Ratio 70; Blood Urea Nitrogen 49 mg/dL (9-20); Calcium 7.7 mg/dL (8.4-10.2); Hemolysis Index 2
[2019-06-08] MEDS: INSULIN LISPRO 100 UNIT/ML SUB-Q SCH ×3 (06:34→18:40)
--- NOTE | 2019-06-08 08:33 | Progress Note ---
Assessment and Plan - Patient Problems (1) Acute respiratory failure Current Visit: Yes Status: Acute Plan to address problem: improved wean o2 continue nebs (2) Pleural effusion Current Visit: Yes Status: Acute Plan to address problem: monitor rept cxr (3) Pneumoperitoneum Current Visit: Yes Status: Acute (4) Prerenal azotemia Current Visit: Yes Status: Acute (5) Sepsis Current Visit: Yes Status: Acute Qualifiers: Sepsis type: sepsis due to unspecified organism Sepsis acute organ dysfunction status: unspecified Qualified Code(s): A41.9 - Sepsis, unspecified organism Plan to address problem: improving rept lbs (6) CKD (chronic kidney disease) Current Visit: Yes Status: Chronic Qualifiers: Plan to address problem: rept labs (7) Cardiomyopathy Current Visit: Yes Status: Chronic Qualifiers: Cardiomyopathy type: unspecified Qualified Code(s): I42.9 - Cardiomyopathy, unspecified Plan to address problem: no evidence of vol overload continue to monitor (8) Chronic HFrEF (heart failure with reduced ejection fraction) Current Visit: Yes Status: Chronic (9) Nonischemic cardiomyopathy Current Visit: Yes Status: Chronic Plan to address problem: monitor closely (10) PAD (peripheral artery disease) Current Visit: Yes Status: Chronic Plan to address problem: wound care (11) Pulmonary hypertension Current Visit: Yes Status: Chronic Plan to address problem: o2 Subjective Principal diagnosis: perforated gastric ulcer Interval history: awake Objective Vital Signs - 12hr 06/07/19 06/07/19 06/07/19 21:34 22:00 22:34 Temperature Pulse Rate Pulse Rate [ 90 Anterior Bilateral Throughout] Respiratory 18 20 Rate Respiratory 18 Rate [Anterior Bilateral Throughout] Blood Pressure O2 Sat by Pulse 95 Oximetry 06/07/19 06/08/19 06/08/19 23:40 02:59 03:29 Temperature 97.6 F Pulse Rate 102 H Pulse Rate [ Anterior Bilateral Throughout] Respiratory 17 20 18 Rate Respiratory Rate [Anterior Bilateral Throughout] Blood Pressure 111/68 O2 Sat by Pulse 99 Oximetry 06/08/19 04:54 Temperature 97.9 F Pulse Rate 102 H Pulse Rate [ Anterior Bilateral Throughout] Respiratory 17 Rate Respiratory Rate [Anterior Bilateral Throughout] Blood Pressure 124/77 O2 Sat by Pulse 96 Oximetry Constitutional: no acute distress, alert Eyes: non-icteric ENT: oropharynx moist Neck: supple Effort: normal Ascultation: Bilateral: clear, other (coarse BS bilaterally) Cardiovascular: regular rate and rhythm (no mrg) Gastrointestinal: absent bowel sounds, non-tender Integumentary: other (necrotic ulcers lower extremities) Extremities: no cyanosis, edema (1+ generalized edema) Neurologic: normal mental status, non-focal exam Psychiatric: mood appropriate, affect normal CBC and BMP: 06/08/19 05:07 06/09/19 08:58 ABG, PT/INR, D-dimer: ABG POC ABG pH 7.508 (7.35-7.45) H 06/07/19 09:44 POC ABG pCO2 41.5 (35-45) 06/07/19 09:44 POC ABG pO2 75 (80-105) L 06/07/19 09:44 POC ABG HCO3 33.0 (22-26 mml/L) 06/07/19 09:44 POC ABG Total CO2 34 (23-27mmol/L) 06/07/19 09:44 POC ABG O2 Sat 96 06/07/19 09:44 PT/INR, D-dimer PT 17.9 Sec. (12.2-14.9) H 06/02/19 07:15 INR 1.50 (0.87-1.13) H 06/02/19 07:15 Abnormal lab findings: Abnormal Labs 06/02/19 06/02/19 06/02/19 07:15 07:15 07:15 WBC 21.0 H RBC 5.17 H Hgb Hct MCH 27 L RDW 23.8 H Seg Neuts % (Manual) 97.0 H Lymphocytes % (Manual) 1.0 L Nucleated RBC % 3.0 H Seg Neutrophils # Man 20.4 H Lymphocytes # (Manual) 0.2 L PT 17.9 H INR 1.50 H POC ABG pH POC ABG pCO2 POC ABG pO2 VBG pH Sodium 130 L Chloride 97.1 L Carbon Dioxide 16 L BUN 47 H Creatinine Glucose 139 H POC Glucose Lactic Acid Calcium Phosphorus Magnesium Total Bilirubin 6.40 H Direct Bilirubin 4.5 H AST 50 H Alkaline Phosphatase 179 H Ammonia Total Creatine Kinase 53 L CK-MB (CK-2) 5.1 H CK-MB (CK-2) Rel Index 9.6 H Troponin T NT-Pro-B Natriuret Pep > 37734 H Total Protein 5.8 L Albumin 2.1 L LDL Cholesterol Direct HDL Cholesterol Vancomycin Trough 06/02/19 06/02/19 06/02/19 07:15 07:15 07:15 WBC RBC Hgb Hct MCH RDW Seg Neuts % (Manual) Lymphocytes % (Manual) Nucleated RBC % Seg Neutrophils # Man Lymphocytes # (Manual) PT INR POC ABG pH POC ABG pCO2 POC ABG pO2 VBG pH 7.310 L Sodium Chloride Carbon Dioxide BUN Creatinine Glucose POC Glucose Lactic Acid 2.40 H* Calcium Phosphorus Magnesium Total Bilirubin Direct Bilirubin AST Alkaline Phosphatase Ammonia 16.0 L Total Creatine Kinase CK-MB (CK-2) CK-MB (CK-2) Rel Index Troponin T NT-Pro-B Natriuret Pep Total Protein Albumin LDL Cholesterol Direct HDL Cholesterol Vancomycin Trough 06/02/19 06/02/19 06/02/19 07:15 15:33 15:53 WBC RBC Hgb Hct MCH RDW Seg Neuts % (Manual) Lymphocytes % (Manual) Nucleated RBC % Seg Neutrophils # Man Lymphocytes # (Manual) PT INR POC ABG pH 7.229 L POC ABG pCO2 49.5 H POC ABG pO2 VBG pH Sodium Chloride Carbon Dioxide BUN Creatinine Glucose POC Glucose 66 L Lactic Acid Calcium Phosphorus Magnesium Total Bilirubin Direct Bilirubin AST Alkaline Phosphatase Ammonia Total Creatine Kinase CK-MB (CK-2) CK-MB (CK-2) Rel Index Troponin T 0.065 H NT-Pro-B Natriuret Pep Total Protein Albumin LDL Cholesterol Direct 31 L HDL Cholesterol 8 L Vancomycin Trough 06/02/19 06/02/19 06/03/19 16:40 17:10 04:06 WBC RBC Hgb Hct MCH RDW Seg Neuts % (Manual) Lymphocytes % (Manual) Nucleated RBC % Seg Neutrophils # Man Lymphocytes # (Manual) PT INR POC ABG pH 7.259 L POC ABG pCO2 33.9 L POC ABG pO2 221 H 146 H VBG pH Sodium Chloride Carbon Dioxide BUN Creatinine Glucose POC Glucose 151 H Lactic Acid Calcium Phosphorus Magnesium Total Bilirubin Direct Bilirubin AST Alkaline Phosphatase Ammonia Total Creatine Kinase CK-MB (CK-2) CK-MB (CK-2) Rel Index Troponin T NT-Pro-B Natriuret Pep Total Protein Albumin LDL Cholesterol Direct HDL Cholesterol Vancomycin Trough 06/03/19 06/03/19 06/03/19 04:41 04:41 17:23 WBC 17.5 H RBC Hgb Hct MCH 27 L RDW 25.0 H Seg Neuts % (Manual) 96.0 H Lymphocytes % (Manual) 0 L Nucleated RBC % 1.0 H Seg Neutrophils # Man 16.8 H Lymphocytes # (Manual) 0.0 L PT INR POC ABG pH POC ABG pCO2 POC ABG pO2 VBG pH Sodium Chloride Carbon Dioxide 17 L BUN 42 H Creatinine Glucose 59 L POC Glucose 113 H Lactic Acid Calcium Phosphorus Magnesium Total Bilirubin 7.00 H Direct Bilirubin AST Alkaline Phosphatase 153 H Ammonia Total Creatine Kinase CK-MB (CK-2) CK-MB (CK-2) Rel Index Troponin T NT-Pro-B Natriuret Pep Total Protein 5.9 L Albumin 1.7 L LDL Cholesterol Direct HDL Cholesterol Vancomycin Trough 06/03/19 06/04/19 06/04/19 23:37 05:10 05:10 WBC 16.7 H RBC Hgb Hct MCH 27 L RDW 24.5 H Seg Neuts % (Manual) 94.0 H Lymphocytes % (Manual) 3.0 L Nucleated RBC % Seg Neutrophils # Man 15.7 H Lymphocytes # (Manual) 0.5 L PT INR POC ABG pH POC ABG pCO2 POC ABG pO2 VBG pH Sodium Chloride Carbon Dioxide BUN 39 H Creatinine Glucose 136 H POC Glucose 126 H Lactic Acid Calcium 8.3 L Phosphorus Magnesium 1.30 L Total Bilirubin 7.70 H Direct Bilirubin AST Alkaline Phosphatase 140 H Ammonia Total Creatine Kinase CK-MB (CK-2) CK-MB (CK-2) Rel Index Troponin T NT-Pro-B Natriuret Pep Total Protein 5.6 L Albumin 1.7 L LDL Cholesterol Direct HDL Cholesterol Vancomycin Trough 06/04/19 06/04/19 06/04/19 05:44 13:50 18:05 WBC RBC Hgb Hct MCH RDW Seg Neuts % (Manual) Lymphocytes % (Manual) Nucleated RBC % Seg Neutrophils # Man Lymphocytes # (Manual) PT INR POC ABG pH POC ABG pCO2 POC ABG pO2 VBG pH Sodium Chloride Carbon Dioxide BUN Creatinine Glucose POC Glucose 124 H 137 H 120 H Lactic Acid Calcium Phosphorus Magnesium Total Bilirubin Direct Bilirubin AST Alkaline Phosphatase Ammonia Total Creatine Kinase CK-MB (CK-2) CK-MB (CK-2) Rel Index Troponin T NT-Pro-B Natriuret Pep Total Protein Albumin LDL Cholesterol Direct HDL Cholesterol Vancomycin Trough 1106/05/19 06/05/19 00:58 04:20 04:20 WBC 15.0 H RBC Hgb Hct MCH 27 L RDW 25.0 H Seg Neuts % (Manual) Lymphocytes % (Manual) Nucleated RBC % Seg Neutrophils # Man Lymphocytes # (Manual) PT INR POC ABG pH POC ABG pCO2 POC ABG pO2 VBG pH Sodium Chloride Carbon Dioxide BUN 52 H Creatinine Glucose 137 H POC Glucose 114 H Lactic Acid Calcium 7.8 L Phosphorus Magnesium Total Bilirubin Direct Bilirubin AST Alkaline Phosphatase Ammonia Total Creatine Kinase CK-MB (CK-2) CK-MB (CK-2) Rel Index Troponin T NT-Pro-B Natriuret Pep Total Protein Albumin LDL Cholesterol Direct HDL Cholesterol Vancomycin Trough 06/05/19 06/05/19 06/05/19 05:39 05:45 09:45 WBC RBC Hgb Hct MCH RDW Seg Neuts % (Manual) Lymphocytes % (Manual) Nucleated RBC % Seg Neutrophils # Man Lymphocytes # (Manual) PT INR POC ABG pH POC ABG pCO2 POC ABG pO2 108 H VBG pH Sodium Chloride Carbon Dioxide BUN Creatinine Glucose POC Glucose 111 H Lactic Acid Calcium Phosphorus Magnesium Total Bilirubin Direct Bilirubin AST Alkaline Phosphatase Ammonia Total Creatine Kinase CK-MB (CK-2) CK-MB (CK-2) Rel Index Troponin T NT-Pro-B Natriuret Pep Total Protein Albumin LDL Cholesterol Direct HDL Cholesterol Vancomycin Trough 20.1 H 06/05/19 06/05/19 06/06/19 13:25 18:27 00:01 WBC RBC Hgb Hct MCH RDW Seg Neuts % (Manual) Lymphocytes % (Manual) Nucleated RBC % Seg Neutrophils # Man Lymphocytes # (Manual) PT INR POC ABG pH POC ABG pCO2 POC ABG pO2 VBG pH Sodium Chloride Carbon Dioxide BUN Creatinine Glucose POC Glucose 152 H 194 H 153 H Lactic Acid Calcium Phosphorus Magnesium Total Bilirubin Direct Bilirubin AST Alkaline Phosphatase Ammonia Total Creatine Kinase CK-MB (CK-2) CK-MB (CK-2) Rel Index Troponin T NT-Pro-B Natriuret Pep Total Protein Albumin LDL Cholesterol Direct HDL Cholesterol Vancomycin Trough 06/06/19 06/06/19 06/06/19 04:20 05:45 12:32 WBC RBC Hgb Hct MCH RDW Seg Neuts % (Manual) Lymphocytes % (Manual) Nucleated RBC % Seg Neutrophils # Man Lymphocytes # (Manual) PT INR POC ABG pH POC ABG pCO2 POC ABG pO2 VBG pH Sodium Chloride Carbon Dioxide BUN 62 H Creatinine Glucose 141 H POC Glucose 161 H 131 H Lactic Acid Calcium 7.7 L Phosphorus 2.40 L Magnesium Total Bilirubin Direct Bilirubin AST Alkaline Phosphatase Ammonia Total Creatine Kinase CK-MB (CK-2) CK-MB (CK-2) Rel Index Troponin T NT-Pro-B Natriuret Pep Total Protein Albumin LDL Cholesterol Direct HDL Cholesterol Vancomycin Trough 06/07/19 06/07/19 06/07/19 02:07 05:36 05:36 WBC 25.3 H RBC Hgb 10.8 L Hct 33.7 L MCH 27 L RDW 26.7 H Seg Neuts % (Manual) Lymphocytes % (Manual) Nucleated RBC % Seg Neutrophils # Man Lymphocytes # (Manual) PT INR POC ABG pH POC ABG pCO2 POC ABG pO2 VBG pH Sodium 135 L Chloride 93.6 L Carbon Dioxide BUN 58 H Creatinine Glucose 131 H POC Glucose 165 H Lactic Acid Calcium 8.0 L Phosphorus Magnesium Total Bilirubin Direct Bilirubin AST Alkaline Phosphatase Ammonia Total Creatine Kinase CK-MB (CK-2) CK-MB (CK-2) Rel Index Troponin T NT-Pro-B Natriuret Pep Total Protein Albumin LDL Cholesterol Direct HDL Cholesterol Vancomycin Trough 06/07/19 06/07/19 06/07/19 09:44 18:05 23:51 WBC RBC Hgb Hct MCH RDW Seg Neuts % (Manual) Lymphocytes % (Manual) Nucleated RBC % Seg Neutrophils # Man Lymphocytes # (Manual) PT INR POC ABG pH 7.508 H POC ABG pCO2 POC ABG pO2 75 L VBG pH Sodium Chloride Carbon Dioxide BUN Creatinine Glucose POC Glucose 137 H 180 H Lactic Acid Calcium Phosphorus Magnesium Total Bilirubin Direct Bilirubin AST Alkaline Phosphatase Ammonia Total Creatine Kinase CK-MB (CK-2) CK-MB (CK-2) Rel Index Troponin T NT-Pro-B Natriuret Pep Total Protein Albumin LDL Cholesterol Direct HDL Cholesterol Vancomycin Trough 06/08/19 06/08/19 06/08/19 05:07 05:07 06:26 WBC 25.1 H RBC 3.21 L Hgb 8.8 L Hct 27.3 L D MCH RDW 27.7 H Seg Neuts % (Manual) Lymphocytes % (Manual) Nucleated RBC % Seg Neutrophils # Man Lymphocytes # (Manual) PT INR POC ABG pH POC ABG pCO2 POC ABG pO2 VBG pH Sodium 134 L Chloride 97.2 L Carbon Dioxide BUN 49 H Creatinine 0.7 L Glucose 144 H POC Glucose 149 H Lactic Acid Calcium 7.7 L Phosphorus Magnesium Total Bilirubin Direct Bilirubin AST Alkaline Phosphatase Ammonia Total Creatine Kinase CK-MB (CK-2) CK-MB (CK-2) Rel Index Troponin T NT-Pro-B Natriuret Pep Total Protein Albumin LDL Cholesterol Direct HDL Cholesterol Vancomycin Trough
--- NOTE | 2019-06-08 09:49 | Progress Note ---
Assessment and Plan Will obtain CXR to evaluate SOB - could be attributable to volume overload d/t TPN. Continue daily IV Lasix for now - may need to increase dose or frequency based on CXR. Mild tachycardia likely physiologic. Continue metoprolol q6 hours and other cardiac management. The patient has been seen in conjunction with Dr. Melia Baird, who agrees with the assessment and plan. - Patient Problems (1) Pneumoperitoneum Current Visit: Yes Status: Acute (2) Perforated gastric ulcer Current Visit: Yes Status: Acute (3) Acute respiratory failure Current Visit: Yes Status: Acute (4) Wounds, multiple Current Visit: Yes Status: Chronic (5) Sepsis Current Visit: Yes Status: Acute Qualifiers: Sepsis type: sepsis due to unspecified organism Sepsis acute organ dysfunction status: unspecified Qualified Code(s): A41.9 - Sepsis, unspecified organism (6) Cardiomyopathy Current Visit: Yes Status: Chronic Qualifiers: Cardiomyopathy type: unspecified Qualified Code(s): I42.9 - Cardiomyopathy, unspecified (7) Chronic HFrEF (heart failure with reduced ejection fraction) Current Visit: Yes Status: Chronic (8) HTN (hypertension) Current Visit: Yes Status: Chronic Qualifiers: Hypertension type: essential hypertension Qualified Code(s): I10 - Essential (primary) hypertension (9) NSVT (nonsustained ventricular tachycardia) Current Visit: Yes Status: Acute (10) Nonischemic cardiomyopathy Current Visit: Yes Status: Chronic (11) PAD (peripheral artery disease) Current Visit: Yes Status: Chronic (12) Pulmonary hypertension Current Visit: Yes Status: Chronic (13) Sinus node dysfunction Current Visit: Yes Status: Chronic (14) Pulmonary hypertension Current Visit: No Status: Acute (15) Noncompliance Current Visit: No Status: Chronic Subjective Date of service: 06/08/19 Principal diagnosis: perforated gastric ulcer Interval history: The patient is lying in bed, currently SOB. Telemetry reviewed - ST in 100s with 11-beat run of NSVT noted overnight. Objective Vital Signs Temp Pulse Pulse Resp Resp BP Pulse Ox 06/08/19 04:54 97.9 F 102 H 17 124/77 96 06/08/19 03:29 18 06/08/19 02:59 20 06/07/19 23:40 97.6 F 102 H 17 111/68 99 06/07/19 22:34 90 18 06/07/19 22:00 20 95 06/07/19 21:34 18 06/07/19 19:28 97.8 F 106 H 17 116/71 98 06/07/19 15:47 97.4 F L 101 H 18 116/75 99 06/07/19 12:05 98.3 F 18 109/75 - Physical Examination General: No Apparent Distress, Other (Mild distress) HEENT: Positive: EOMI, Normocephaly, Mucus Membranes Moist Neck: Positive: neck supple, trachea midline, Carotid Upstroke (full) Cardiac: Positive: Regular Rhythm Lungs: Positive: Decreased Breath Sounds Neuro: Positive: Grossly Intact Abdomen: Positive: Soft /Rectal: Other (Urine dark yellow) Skin: Positive: Other (multiple wounds on both lower extremities with areas of ischemic ulceration.) Musculoskeletal: Normal Range of Motion Extremities: Present: lower extr. pulses (LLE difficult to palpate d/t wound dressing and ischemic ulceration), Other (LLE - pulse difficult to palpate d/t wounds ) - Labs and Meds CBC 06/08/19 Range/Units 05:07 WBC 25.1 H (4.5-11.0) K/mm3 RBC 3.21 L (3.65-5.03) M/mm3 Hgb 8.8 L (11.8-15.2) gm/dl Hct 27.3 L D (35.5-45.6) % Plt Count 241 (140-440) K/mm3 Comprehensive Metabolic Panel 06/08/19 Range/Units 05:07 Sodium 134 L (137-145) mmol/L Potassium 4.4 D (3.6-5.0) mmol/L Chloride 97.2 L (98-107) mmol/L Carbon Dioxide 29 (22-30) mmol/L BUN 49 H (9-20) mg/dL Creatinine 0.7 L (0.8-1.5) mg/dL Glucose 144 H (75-100) mg/dL Calcium 7.7 L (8.4-10.2) mg/dL - Imaging and Cardiology EKG: image reviewed Echo: report reviewed (02/28/19 showed EF of 10-15%, dilation of all chambers, moderate AR, moderate to severe TR and RV hypokinesis. ) Cardiac cath: report reviewed (04/2017 showed patent coronaries, EF 10-15%. ) - Telemetry EKG Rhythm: Sinus Tachycardia - EKG Sinus rhythms and dysrhythmias: sinus rhythm Chamber hypertrophy or enlargement: left ventricular hypertro Repolarization changes or abnormalities: repolarization abn secondary to ventricular hypertrophy Myocardial infarction: septal DE (old age or ind
--- NOTE | 2019-06-08 10:23 | XRay Report ---
CHEST 1 VIEW 06/08/2019 10:03 AM INDICATION / CLINICAL INFORMATION: SOB. COMPARISON: 06/05/2019 FINDINGS: SUPPORT DEVICES: Right IJ central venous catheter is in stable appropriate position. The ET tube and NG tube have been removed. HEART / MEDIASTINUM: No significant abnormality. LUNGS / PLEURA: Interval development of right basilar opacity most likely reflecting a small pleural effusion and associated right basilar parenchymal opacification. No pneumothorax. ADDITIONAL FINDINGS: No significant additional findings. IMPRESSION: 1. Interval development of probable right pleural effusion with associated right basilar parenchymal opacity that could represent atelectasis or developing infectious process. Signer Name: Sha Winston MD Signed: 06/08/2019 10:18 AM Workstation Name: [id number]
[2019-06-08] MEDS: VANCOMYCIN 750 MG in SODIUM CHLORIDE 0.9% 250ML 250 ML IV SCH (10:57)
[2019-06-08] MEDS: PANTOPRAZOLE 40 MG INJ IV SCH ×2 (11:04→22:42)
[2019-06-08] MEDS: FLUCONAZOLE 400 MG 200 ML IV SCH (12:05)
--- NOTE | 2019-06-08 14:03 | Progress Note ---
Assessment and Plan - Patient Problems (1) Perforated gastric ulcer Current Visit: Yes Status: Acute Plan to address problem: 63 yo M s/p exploratory laparotomy, omental patch of perforated gastric ulcer POD 6 1. sepsis 2. perforated gastric ulcer 3. severe malnutrition 4. b/l pleural effusions 5. bedbound 6. infected b/l LE wounds with likely chronic limb ischemia 7. cardiomyopathy 8. CHF Arterial duplex - no Plan: 1. Neuro - appears appropriate 2. CV - BP and HR stable. Cardiology on board 3. Resp - encourage pulm toilet 4. GI - TPN. Protonix BID. Continue full liquid diet. Should not be advanced beyond this level. 5. Endo - Blood glucose monitoring per protocol 6. ID - intraop cultures prelim - janeth. Lower extremity wound cx prelim - gram neg. Continue abx per ID. Multiple infected wounds of LE - continue wound care per human services worker. Leg wounds probably account for spike in WBC. Abd not impressive at this time. 7. - garcia for strict I/Os. 8. Musc - DVT ppx. Offloading. Dr. Oakes managing LE for debridement vs amputation. Please call with questions. Subjective Date of service: 06/08/19 Patient Reports: Positive: no new complaints, tolerating liquids well. Negative: nausea, vomiting Objective Vital Signs - 12hr 06/08/19 06/08/19 06/08/19 02:59 03:29 04:54 Temperature 97.9 F Pulse Rate 102 H Respiratory 20 18 17 Rate Blood Pressure 124/77 O2 Sat by Pulse 96 Oximetry 06/08/19 06/08/19 07:03 11:13 Temperature 97.0 F L 97.5 F L Pulse Rate 103 H 102 H Respiratory 18 20 Rate Blood Pressure 121/84 121/81 O2 Sat by Pulse 98 99 Oximetry - General physical appearance no distress, no pain - Eyes normal occular movement - Respiratory normal expansion, normal respiratory effort - Abdomen soft, not tender, not distended, not guarding, not rigid, surgical scars (C/D/I) - Labs 06/08/19 05:07 06/08/19 05:07 Diabetes panel 06/08/19 Range/Units 05:07 Sodium 134 L (137-145) mmol/L Potassium 4.4 D (3.6-5.0) mmol/L Chloride 97.2 L (98-107) mmol/L Carbon Dioxide 29 (22-30) mmol/L BUN 49 H (9-20) mg/dL Creatinine 0.7 L (0.8-1.5) mg/dL Glucose 144 H (75-100) mg/dL Calcium 7.7 L (8.4-10.2) mg/dL Calcium panel 06/08/19 Range/Units 05:07 Calcium 7.7 L (8.4-10.2) mg/dL Phosphorus 3.00 (2.5-4.5) mg/dL Pituitary panel 06/08/19 Range/Units 05:07 Sodium 134 L (137-145) mmol/L Potassium 4.4 D (3.6-5.0) mmol/L Chloride 97.2 L (98-107) mmol/L Carbon Dioxide 29 (22-30) mmol/L BUN 49 H (9-20) mg/dL Creatinine 0.7 L (0.8-1.5) mg/dL Glucose 144 H (75-100) mg/dL Calcium 7.7 L (8.4-10.2) mg/dL Adrenal panel 06/08/19 Range/Units 05:07 Sodium 134 L (137-145) mmol/L Potassium 4.4 D (3.6-5.0) mmol/L Chloride 97.2 L (98-107) mmol/L Carbon Dioxide 29 (22-30) mmol/L BUN 49 H (9-20) mg/dL Creatinine 0.7 L (0.8-1.5) mg/dL Glucose 144 H (75-100) mg/dL Calcium 7.7 L (8.4-10.2) mg/dL
[2019-06-08] MEDS ORDERED: chlorproMAZINE 25 MG in SODIUM CHLORIDE 0.9% 50 ML IV PRN (15:00)
[2019-06-08] MEDS: ONDANSETRON 4 MG/2 ML INJ IV PRN (19:24)
[2019-06-08] MEDS: SODIUM HYPOCHLORITE, DAKIN'S 1/2 STRENGTH (0.25%) 473 ML TOPICAL SOLN TP SCH ×2 (19:46→22:45)
[2019-06-08] MEDS ORDERED: TOTAL PARENTERAL NUTRITION 1,560 ML IV SCH (20:00)
[2019-06-08] MEDS: ARFORMOTEROL 15 MCG/2 ML NEBU IH SCH (22:13)
[2019-06-08] MEDS: BUDESONIDE 0.5 MG/2 ML NEBU IH SCH ×2 (22:14)
[2019-06-09] MEDS: INSULIN LISPRO 100 UNIT/ML SUB-Q SCH ×4 (00:43→18:22)
--- NOTE | 2019-06-09 01:07 | Progress Note ---
Assessment and Plan Assessment and plan: Patient is a 63 yo man with a history of NICMP, chronic HFrEF 10-15%, NSVT declines LifeVest/AICD, CKD 3, HTN and mod to severe TR, b/l LE wounds, bedbound who presents to [facility] ED with c/o abdominal pain for 3 days. He had multiple bilateral lower extremity wound and stage I to 2 lower extremity ulcer covered with pus. CT abdomen and pelvis suggestive of pneumoperitoneum. General surgery has been consulted and patient was taken for OR for exploratory laparotomy by general surgeon. He also received empiric antibiotics, blood culture wound culture has been ordered. Perforated gastric ulcer. - - General surgery consulted for perforated bowel - s/p exploratory laparotomy, omental patch of perforated gastric ulcer by Dr. Sims, Surgeon, POD 2 - cont empiric abx,cautious IV fluid, may need to start on TPN -Started on full liquid diet Sepsis with bilateral lower extremity cellulitis/infected ulcer and perforated bowel - Continue empiric antibiotics, obtain blood cultures, wound culture - Wound care consult placed, -ID Physician following bilateral lower extremity cellulitis/infected ulcer - from PVD - s/p bilateral I and D done 06/[address] Oakes,Surgeon Moderate b/l pleural effusion CHFrEF 10-15% - Cardiology consulted - monitor ins/os, daily lasix iv to prevent fluid overload Chronic systolic CHF cardiology following Severe protein calorie malnutrition - nutrition consult, may need TPN CKD stage III, monitor renal function, avoid nephrotoxin - renal function stable Elevated bilirubin, trend LFT Severe metabolic acidosis likely due to perforated bowel - bicarbonate as needed Acute respiratory failure following surgery - CC following, cont nebs, -Extubated 06/05 - Provide GI and DVT prophylaxis History Interval history: s/p abdominal surgery Extubated 06/05 Started on full liquid diet Hospitalist Physical - Physical exam Narrative exam: Gen: Not in acute distress, lying in bed, HEENT: Normocephalic, atraumatic Neck: supple, no JVD Heart: S1 and S2 reg, no murmurs, rubs or gallop Lungs: Clear to auscultation bilaterally, Abd: soft, NT, wound dry, surgical drain, Ext: Dressing over wounds both legs, no cyanosis, swelling both upper and lower ext, Neuro: awake,alert,oriented, moves all ext - Constitutional Vitals: Temp Pulse Resp BP Pulse Ox 97.3 F L 112 H 17 120/77 96 06/09/19 00:16 06/09/19 00:13 06/09/19 00:13 06/09/19 00:13 06/09/19 00:13 General appearance: Present: no acute distress Results - Labs CBC & Chem 7: 06/08/19 05:07 06/09/19 08:58 Labs: Laboratory Last Values WBC 25.1 K/mm3 (4.5-11.0) H 06/08/19 05:07 RBC 3.21 M/mm3 (3.65-5.03) L 06/08/19 05:07 Hgb 8.8 gm/dl (11.8-15.2) L 06/08/19 05:07 Hct 27.3 % (35.5-45.6) L D 06/08/19 05:07 MCV 85 fl (84-94) 06/08/19 05:07 MCH 28 pg (28-32) 06/08/19 05:07 MCHC 32 % (32-34) 06/08/19 05:07 RDW 27.7 % (13.2-15.2) H 06/08/19 05:07 Plt Count 241 K/mm3 (140-440) 06/08/19 05:07 Add Manual Diff Complete 06/04/19 05:10 Total Counted 100 06/04/19 05:10 Seg Neutrophils % Dispute Coordinator 06/04/19 05:10 Seg Neuts % (Manual) 94.0 % (40.0-70.0) H 06/04/19 05:10 Band Neutrophils % 0 % 06/04/19 05:10 Lymphocytes % (Manual) 3.0 % (13.4-35.0) L 06/04/19 05:10 Reactive Lymphs % (Man) 0 % 06/04/19 05:10 Monocytes % (Manual) 2.0 % (0.0-7.3) 06/04/19 05:10 Eosinophils % (Manual) 1.0 % (0.0-4.3) 06/04/19 05:10 Basophils % (Manual) 0 % (0.0-1.8) 06/04/19 05:10 Metamyelocytes % 0 % 06/04/19 05:10 Myelocytes % 0 % 06/04/19 05:10 Promyelocytes % 0 % 06/04/19 05:10 Blast Cells % 0 % 06/04/19 05:10 Nucleated RBC % Not Reportable 06/04/19 05:10 Seg Neutrophils # Man 15.7 K/mm3 (1.8-7.7) H 06/04/19 05:10 Band Neutrophils # 0.0 K/mm3 06/04/19 05:10 Lymphocytes # (Manual) 0.5 K/mm3 (1.2-5.4) L 06/04/19 05:10 Abs React Lymphs (Man) 0.0 K/mm3 06/04/19 05:10 Monocytes # (Manual) 0.3 K/mm3 (0.0-0.8) 06/04/19 05:10 Eosinophils # (Manual) 0.2 K/mm3 (0.0-0.4) 06/04/19 05:10 Basophils # (Manual) 0.0 K/mm3 (0.0-0.1) 06/04/19 05:10 Metamyelocytes # 0.0 K/mm3 06/04/19 05:10 Myelocytes # 0.0 K/mm3 06/04/19 05:10 Promyelocytes # 0.0 K/mm3 06/04/19 05:10 Blast Cells # 0.0 K/mm3 06/04/19 05:10 WBC Morphology Not Reportable 06/04/19 05:10 Hypersegmented Neuts Not Reportable 06/04/19 05:10 Hyposegmented Neuts Not Reportable 06/04/19 05:10 Hypogranular Neuts Not Reportable 06/04/19 05:10 Smudge Cells Not Reportable 06/04/19 05:10 Toxic Granulation Not Reportable 06/04/19 05:10 Toxic Vacuolation Not Reportable 06/04/19 05:10 Dohle Bodies Not Reportable 06/04/19 05:10 Pelger-Huet Anomaly Not Reportable 06/04/19 05:10 Romero Rods Not Reportable 06/04/19 05:10 Platelet Estimate Consistent w auto 06/04/19 05:10 Clumped Platelets Not Reportable 06/04/19 05:10 Plt Clumps, EDTA Not Reportable 06/04/19 05:10 Large Platelets Not Reportable 06/04/19 05:10 Giant Platelets Not Reportable 06/04/19 05:10 Platelet Satelliting Not Reportable 06/04/19 05:10 Plt Morphology Comment Not Reportable 06/04/19 05:10 RBC Morphology Not Reportable 06/04/19 05:10 Dimorphic RBCs Not Reportable 06/04/19 05:10 Polychromasia Not Reportable 06/04/19 05:10 Hypochromasia Few 06/04/19 05:10 Poikilocytosis Not Reportable 06/04/19 05:10 Anisocytosis 1+ 06/04/19 05:10 Microcytosis Not Reportable 06/04/19 05:10 Macrocytosis Not Reportable 06/04/19 05:10 Spherocytes Not Reportable 06/04/19 05:10 Pappenheimer Bodies Not Reportable 06/04/19 05:10 Sickle Cells Not Reportable 06/04/19 05:10 Target Cells 1+ 06/04/19 05:10 Tear Drop Cells Not Reportable 06/04/19 05:10 Ovalocytes Not Reportable 06/04/19 05:10 Helmet Cells Not Reportable 06/04/19 05:10 [place] Bodies Not Reportable 06/04/19 05:10 [place] Rings Not Reportable 06/04/19 05:10 [place] Cells Not Reportable 06/04/19 05:10 Bite Cells Not Reportable 06/04/19 05:10 Crenated Cell Not Reportable 06/04/19 05:10 Elliptocytes Not Reportable 06/04/19 05:10 Acanthocytes (Spur) Not Reportable 06/04/19 05:10 Rouleaux Not Reportable 06/04/19 05:10 Hemoglobin C Crystals Not Reportable 06/04/19 05:10 Schistocytes Not Reportable 06/04/19 05:10 Malaria parasites Not Reportable 06/04/19 05:10 Bunny Bodies Not Reportable 06/04/19 05:10 Hem Pathologist Commnt No 06/04/19 05:10 PT 17.9 Sec. (12.2-14.9) H 06/02/19 07:15 INR 1.50 (0.87-1.13) H 06/02/19 07:15 APTT 33.2 Sec. (24.2-36.6) 06/02/19 07:15 POC ABG pH 7.508 (7.35-7.45) H 06/07/19 09:44 POC ABG pCO2 41.5 (35-45) 06/07/19 09:44 POC ABG pO2 75 (80-105) L 06/07/19 09:44 POC ABG HCO3 33.0 (22-26 mml/L) 06/07/19 09:44 POC ABG Total CO2 34 (23-27mmol/L) 06/07/19 09:44 POC ABG O2 Sat 96 06/07/19 09:44 POC ABG Base Excess 10 ((-2) - (+3)mmol/L) 06/07/19 09:44 VBG pH 7.310 (7.320-7.420) L 06/02/19 07:15 FiO2 21 % 06/07/19 09:44 Sodium 134 mmol/L (137-145) L 06/08/19 05:07 Potassium 4.4 mmol/L (3.6-5.0) D 06/08/19 05:07 Chloride 97.2 mmol/L (98-107) L 06/08/19 05:07 Carbon Dioxide 29 mmol/L (22-30) 06/08/19 05:07 Anion Gap 12 mmol/L 06/08/19 05:07 BUN 49 mg/dL (9-20) H 06/08/19 05:07 Creatinine 0.7 mg/dL (0.8-1.5) L 06/08/19 05:07 Estimated GFR > 60 ml/min 06/08/19 05:07 BUN/Creatinine Ratio 70 % 06/08/19 05:07 Glucose 144 mg/dL (75-100) H 06/08/19 05:07 POC Glucose 161 (70-105) H 06/09/19 00:04 Lactic Acid 1.10 mmol/L (0.7-2.0) 06/02/19 09:17 Calcium 7.7 mg/dL (8.4-10.2) L 06/08/19 05:07 Phosphorus 3.00 mg/dL (2.5-4.5) 06/08/19 05:07 Magnesium 2.00 mg/dL (1.7-2.3) 06/08/19 05:07 Total Bilirubin 7.70 mg/dL (0.1-1.2) H 06/04/19 05:10 Direct Bilirubin 4.5 mg/dL (0-0.2) H 06/02/19 07:15 Indirect Bilirubin 1.9 mg/dL 06/02/19 07:15 AST 30 units/L (5-40) 06/04/19 05:10 ALT 29 units/L (7-56) 06/04/19 05:10 Alkaline Phosphatase 140 units/L (35-129) H 06/04/19 05:10 Ammonia 16.0 umol/L (25-60) L 06/02/19 07:15 Total Creatine Kinase 53 units/L (55-170) L 06/02/19 07:15 CK-MB (CK-2) 5.1 ng/mL (0.0-4.0) H 06/02/19 07:15 CK-MB (CK-2) Rel Index 9.6 (0-4) H 06/02/19 07:15 Troponin T 0.065 ng/mL (0.00-0.029) H 06/02/19 07:15 NT-Pro-B Natriuret Pep > 82652 pg/mL (0-900) H 06/02/19 07:15 Total Protein 5.6 g/dL (6.3-8.2) L 06/04/19 05:10 Albumin 1.7 g/dL (3.9-5) L 06/04/19 05:10 Albumin/Globulin Ratio 0.4 % 06/04/19 05:10 Triglycerides 112 mg/dL (2-149) 06/02/19 07:15 Cholesterol 73 mg/dL (50-199) 06/02/19 07:15 LDL Cholesterol Direct 31 mg/dL (50-130) L 06/02/19 07:15 HDL Cholesterol 8 mg/dL (40-59) L 06/02/19 07:15 Cholesterol/HDL Ratio 9.12 % 06/02/19 07:15 Lipase 56 units/L (13-60) 06/02/19 07:15 Urine Color [place] (Yellow) 06/02/19 10:37 Urine Turbidity Clear (Clear) 06/02/19 10:37 Urine pH 5.0 (5.0-7.0) 06/02/19 10:37 Ur Specific [place] 1.019 (1.003-1.030) 06/02/19 10:37 Urine Protein <15 mg/dl mg/dL (Negative) 06/02/19 10:37 Urine Glucose (UA) 50 mg/dL (Negative) 06/02/19 10:37 Urine Ketones Neg mg/dL (Negative) 06/02/19 10:37 Urine Blood Neg (Negative) 06/02/19 10:37 Urine Nitrite Neg (Negative) 06/02/19 10:37 Urine Bilirubin Neg (Negative) 06/02/19 10:37 Urine Urobilinogen 4.0 mg/dL (<2.0) 06/02/19 10:37 Ur Leukocyte Esterase Neg (Negative) 06/02/19 10:37 Urine WBC (Auto) 2.0 /HPF (0.0-6.0) 06/02/19 10:37 Urine RBC (Auto) 2.0 /HPF (0.0-6.0) 06/02/19 10:37 Urine Bacteria (Auto) 1+ /HPF (Negative) 06/02/19 10:37 Vancomycin Trough 20.1 ug/mL (5.0-20.0) H 06/05/19 09:45 Blood Type A POSITIVE 06/02/19 11:55 Antibody Screen Negative 06/02/19 11:55 Active Medications - Current Medications Current Medications: Generic Name Dose Route Start Last Admin Trade Name Freq PRN Reason Stop Dose Admin Albuterol 2.5 mg 06/02/19 11:28 Proventil IH Q4H PRN Shortness Of Breath Albuterol/Ipratropium 1 ampul 06/06/19 20:00 06/08/19 22:47 Duoneb *Not For Prn Use* IH Not Given Q6HRT ROSE Arformoterol Tartrate 15 mcg 06/02/19 20:00 06/08/19 22:13 Brovana Nebu IH 15 mcg Q12HRT ROSE Administration Budesonide 0.5 mg 06/02/19 20:00 06/08/19 22:14 Pulmicort IH 0.5 mg Q12HRT ROSE Administration Furosemide 40 mg 06/03/19 13:00 06/07/19 06:05 Lasix IV 40 mg DAILY@0600 ROSE Administration Hydromorphone HCl 0.25 mg 06/05/19 10:55 06/08/19 23:08 Dilaudid IV 0.25 mg Q3H PRN Administration Pain , Severe (7-10) Meropenem 500 mg in 50 mls @ 50 mls/hr 06/02/19 17:00 06/08/19 22:42 Merrem/Ns 500 Mg/50 Ml IV 50 mls/hr Q6H ROSE Administration Fluconazole 200 mls @ 100 mls/hr 06/04/19 13:00 06/08/19 12:05 Diflucan IV 100 mls/hr Q24HR ROSE Administration Protocol Vancomycin HCl 750 mg/ Sodium 265 mls @ 166.667 mls/hr 06/06/19 10:00 06/08/19 10:57 Chloride IV 166.667 mls/hr Q24HR ROSE Administration Amino Acids/Electrolytes/Dextrose 1,560 mls @ 65 mls/hr 06/08/19 20:00 06/08/19 22:43 Tpn Adult IV 06/09/19 19:59 65 mls/hr DAILY@2000 ROSE Administration Protocol Chlorpromazine HCl 25 mg/ 51 mls @ 100 mls/hr 06/08/19 15:00 Sodium Chloride IV Q4H PRN Hiccups Insulin Human Lispro 0 unit 06/08/19 06:00 06/09/19 00:43 Humalog SUB-Q Not Given Q6HR COUNT INCLUDES THE [facility] Protocol Ondansetron HCl 4 mg 06/08/19 14:30 06/08/19 19:24 Zofran IV 4 mg Q8H PRN Administration Nausea And Vomiting Pantoprazole Sodium 40 mg 06/04/19 10:00 06/08/19 22:42 Protonix IV 40 mg BID ROSE Administration Sodium Hypochlorite 1 applic 06/05/19 22:00 06/08/19 22:45 Dakin's Half Strength TP 1 applicatio BID ROSE Administration Nutrition/Malnutrition Assess - Dietary Evaluation Nutrition/Malnutrition Findings: Nutrition Notes Start: 06/03/19 11:22 Freq: Status: Active Protocol: Document 06/08/19 12:08 LM (Rec: 06/08/19 12:16 LM [id number]) Nutrition Notes Initial or Follow up Reassessment Current Diagnosis CKD(stage I-IV),Decubitus( Pressure Ulcer),Sepsis, Hypertension,Heart Failure Other Pertinent Diagnosis Perforated viscus S/P exp lap Current Diet CPN at 65 ml/hr and full liquid Labs/Tests Na 134 BUN 49 Cr 0.7 BG 144 Pertinent Medications Reviewed Height 5 ft 7 in Weight 61.1 kg [place] Body Weight (kg) 67.27 BMI 21.1 Subjective/Other Information CPN day 5. Pt's diet advanced to full liquid. Pt more alert and talkative today. Pt did not eat any of his full liquids but did drink 1 Ensure . Pt stated he like Ensure. Pt stated his appetite is still bad due to pain. Percent of energy/protein needs met: 91%/100% (cl liq and CPN) Burn Absent Trauma Absent GI Symptoms None Current % PO Negligible Body Fat Depletion Mild depletion (non-severe) Muscle Mass Mild Depletion (non-severe) Fluid Accumulation Mild (non-severe) Reduced [employer] In [employer] Strength Measurably Reduced (severe) #1 Nutrition Diagnosis Malnutrition Diagnosis Progress(for reassessment Continues documentation) Is patient on ventilator? No Is Patient Ambulatory and/or Out of Bed No REE-([facility]-confined to bed) 1654.668 Calculation Used for Recommendations Kcal/kg Additional Notes Protein: 36-92g (0.6-1.5g/kg) pt with CKD and malnutrition Fluid: 1 ml/kcal or per MD Nutrition Intervention Change Diet Order: CPN and full liquids Nutrition Support: CPN at 65 ml/hr: 19.2% dextrose, 165 mEq Na, MVI; 1895 mOsmol Kcal 1,372 Protein (gm) 88 Carbohydrates (gm) 300 Fat (gm) 0 Fluid (mL) 1,560 Fiber (gm) 0 Goal #1 CPN and full liquids to meet needs as best as possible Goal #2 Diet advancement when medically feasible Anticipated Discharge Needs: Unable to determine at this time Follow-Up By: 06/09/19 Additional Comments Labs in AM: BMP, Mg, Phos F/U for intakes, ONS tolerance , diet advancement
[2019-06-09] MEDS: IPRATROPIUM/ALBUTEROL SULFATE 3 ML AMPUL.NEB IH SCH ×4 (03:01→21:41)
[2019-06-09] MEDS: MEROPENEM/NS 500 MG/50 ML 500 MG/50 ML BAG IV SCH ×2 (05:07→11:21)
[2019-06-09] MEDS: FUROSEMIDE 40 MG/4 ML INJ IV SCH (05:08)
[2019-06-09] MEDS: FLUCONAZOLE 400 MG 200 ML IV SCH ×2 (08:48→11:17)
[2019-06-09] MEDS: PANTOPRAZOLE 40 MG INJ IV SCH ×3 (08:48→21:05)
[2019-06-09] MEDS: SODIUM HYPOCHLORITE, DAKIN'S 1/2 STRENGTH (0.25%) 473 ML TOPICAL SOLN TP SCH ×3 (08:49→21:10)
[2019-06-09] MEDS: VANCOMYCIN 750 MG in SODIUM CHLORIDE 0.9% 250ML 250 ML IV SCH ×2 (08:49→11:18)
[2019-06-09] MEDS: HYDROmorphone 1 MG/1 ML INJ IV PRN ×3 (08:57→21:05)
--- NOTE | 2019-06-09 09:32 | Progress Note ---
Assessment and Plan - Patient Problems (1) Acute respiratory failure Current Visit: Yes Status: Acute (2) Pleural effusion Current Visit: Yes Status: Acute (3) Pneumoperitoneum Current Visit: Yes Status: Acute (4) Prerenal azotemia Current Visit: Yes Status: Acute (5) Sepsis Current Visit: Yes Status: Acute Qualifiers: Sepsis type: sepsis due to unspecified organism Sepsis acute organ dysfunction status: unspecified Qualified Code(s): A41.9 - Sepsis, unspecified organism (6) CKD (chronic kidney disease) Current Visit: Yes Status: Chronic Qualifiers: (7) Cardiomyopathy Current Visit: Yes Status: Chronic Qualifiers: Cardiomyopathy type: unspecified Qualified Code(s): I42.9 - Cardiomyopathy, unspecified (8) Chronic HFrEF (heart failure with reduced ejection fraction) Current Visit: Yes Status: Chronic (9) Nonischemic cardiomyopathy Current Visit: Yes Status: Chronic (10) PAD (peripheral artery disease) Current Visit: Yes Status: Chronic (11) Pulmonary hypertension Current Visit: Yes Status: Chronic (12) Jaundice Current Visit: Yes Status: Acute Subjective Principal diagnosis: perforated gastric ulcer Interval history: appears jaundice no distress Objective Vital Signs - 12hr 06/08/19 06/08/19 06/09/19 22:15 23:08 00:13 Temperature 94.3 F L Pulse Rate 112 H Pulse Rate [ 107 H Anterior Bilateral Throughout] Respiratory 20 17 Rate Respiratory 20 Rate [Anterior Bilateral Throughout] Blood Pressure 120/77 O2 Sat by Pulse 98 96 Oximetry 06/09/19 06/09/19 06/09/19 00:16 03:08 04:48 Temperature 97.3 F L 97.9 F Pulse Rate 111 H Pulse Rate [ 110 H Anterior Bilateral Throughout] Respiratory 17 Rate Respiratory 20 Rate [Anterior Bilateral Throughout] Blood Pressure 112/72 O2 Sat by Pulse 96 Oximetry 06/09/19 08:01 Temperature 97.6 F Pulse Rate 105 H Pulse Rate [ Anterior Bilateral Throughout] Respiratory 18 Rate Respiratory Rate [Anterior Bilateral Throughout] Blood Pressure 109/64 O2 Sat by Pulse 97 Oximetry Constitutional: no acute distress, alert, other (possible jaundice) Eyes: non-icteric ENT: oropharynx moist Neck: supple Effort: normal Ascultation: Bilateral: clear, other (coarse BS bilaterally) Cardiovascular: regular rate and rhythm (no mrg) Gastrointestinal: absent bowel sounds, non-tender Integumentary: other (necrotic ulcers lower extremities) Extremities: no cyanosis, edema (1+ generalized edema) Neurologic: normal mental status, non-focal exam Psychiatric: mood appropriate, affect normal CBC and BMP: 06/08/19 05:07 06/08/19 05:07 ABG, PT/INR, D-dimer: ABG POC ABG pH 7.508 (7.35-7.45) H 06/07/19 09:44 POC ABG pCO2 41.5 (35-45) 06/07/19 09:44 POC ABG pO2 75 (80-105) L 06/07/19 09:44 POC ABG HCO3 33.0 (22-26 mml/L) 06/07/19 09:44 POC ABG Total CO2 34 (23-27mmol/L) 06/07/19 09:44 POC ABG O2 Sat 96 06/07/19 09:44 PT/INR, D-dimer PT 17.9 Sec. (12.2-14.9) H 06/02/19 07:15 INR 1.50 (0.87-1.13) H 06/02/19 07:15 Abnormal lab findings: Abnormal Labs 06/02/19 06/02/19 06/02/19 07:15 07:15 07:15 WBC 21.0 H RBC 5.17 H Hgb Hct MCH 27 L RDW 23.8 H Seg Neuts % (Manual) 97.0 H Lymphocytes % (Manual) 1.0 L Nucleated RBC % 3.0 H Seg Neutrophils # Man 20.4 H Lymphocytes # (Manual) 0.2 L PT 17.9 H INR 1.50 H POC ABG pH POC ABG pCO2 POC ABG pO2 VBG pH Sodium 130 L Chloride 97.1 L Carbon Dioxide 16 L BUN 47 H Creatinine Glucose 139 H POC Glucose Lactic Acid Calcium Phosphorus Magnesium Total Bilirubin 6.40 H Direct Bilirubin 4.5 H AST 50 H Alkaline Phosphatase 179 H Ammonia Total Creatine Kinase 53 L CK-MB (CK-2) 5.1 H CK-MB (CK-2) Rel Index 9.6 H Troponin T NT-Pro-B Natriuret Pep > 13628 H Total Protein 5.8 L Albumin 2.1 L LDL Cholesterol Direct HDL Cholesterol Vancomycin Trough 06/02/19 06/02/19 06/02/19 07:15 07:15 07:15 WBC RBC Hgb Hct MCH RDW Seg Neuts % (Manual) Lymphocytes % (Manual) Nucleated RBC % Seg Neutrophils # Man Lymphocytes # (Manual) PT INR POC ABG pH POC ABG pCO2 POC ABG pO2 VBG pH 7.310 L Sodium Chloride Carbon Dioxide BUN Creatinine Glucose POC Glucose Lactic Acid 2.40 H* Calcium Phosphorus Magnesium Total Bilirubin Direct Bilirubin AST Alkaline Phosphatase Ammonia 16.0 L Total Creatine Kinase CK-MB (CK-2) CK-MB (CK-2) Rel Index Troponin T NT-Pro-B Natriuret Pep Total Protein Albumin LDL Cholesterol Direct HDL Cholesterol Vancomycin Trough 06/02/19 06/02/19 06/02/19 07:15 15:33 15:53 WBC RBC Hgb Hct MCH RDW Seg Neuts % (Manual) Lymphocytes % (Manual) Nucleated RBC % Seg Neutrophils # Man Lymphocytes # (Manual) PT INR POC ABG pH 7.229 L POC ABG pCO2 49.5 H POC ABG pO2 VBG pH Sodium Chloride Carbon Dioxide BUN Creatinine Glucose POC Glucose 66 L Lactic Acid Calcium Phosphorus Magnesium Total Bilirubin Direct Bilirubin AST Alkaline Phosphatase Ammonia Total Creatine Kinase CK-MB (CK-2) CK-MB (CK-2) Rel Index Troponin T 0.065 H NT-Pro-B Natriuret Pep Total Protein Albumin LDL Cholesterol Direct 31 L HDL Cholesterol 8 L Vancomycin Trough 06/02/19 06/02/19 06/03/19 16:40 17:10 04:06 WBC RBC Hgb Hct MCH RDW Seg Neuts % (Manual) Lymphocytes % (Manual) Nucleated RBC % Seg Neutrophils # Man Lymphocytes # (Manual) PT INR POC ABG pH 7.259 L POC ABG pCO2 33.9 L POC ABG pO2 221 H 146 H VBG pH Sodium Chloride Carbon Dioxide BUN Creatinine Glucose POC Glucose 151 H Lactic Acid Calcium Phosphorus Magnesium Total Bilirubin Direct Bilirubin AST Alkaline Phosphatase Ammonia Total Creatine Kinase CK-MB (CK-2) CK-MB (CK-2) Rel Index Troponin T NT-Pro-B Natriuret Pep Total Protein Albumin LDL Cholesterol Direct HDL Cholesterol Vancomycin Trough 06/03/19 06/03/19 06/03/19 04:41 04:41 17:23 WBC 17.5 H RBC Hgb Hct MCH 27 L RDW 25.0 H Seg Neuts % (Manual) 96.0 H Lymphocytes % (Manual) 0 L Nucleated RBC % 1.0 H Seg Neutrophils # Man 16.8 H Lymphocytes # (Manual) 0.0 L PT INR POC ABG pH POC ABG pCO2 POC ABG pO2 VBG pH Sodium Chloride Carbon Dioxide 17 L BUN 42 H Creatinine Glucose 59 L POC Glucose 113 H Lactic Acid Calcium Phosphorus Magnesium Total Bilirubin 7.00 H Direct Bilirubin AST Alkaline Phosphatase 153 H Ammonia Total Creatine Kinase CK-MB (CK-2) CK-MB (CK-2) Rel Index Troponin T NT-Pro-B Natriuret Pep Total Protein 5.9 L Albumin 1.7 L LDL Cholesterol Direct HDL Cholesterol Vancomycin Trough 06/03/19 06/04/19 06/04/19 23:37 05:10 05:10 WBC 16.7 H RBC Hgb Hct MCH 27 L RDW 24.5 H Seg Neuts % (Manual) 94.0 H Lymphocytes % (Manual) 3.0 L Nucleated RBC % Seg Neutrophils # Man 15.7 H Lymphocytes # (Manual) 0.5 L PT INR POC ABG pH POC ABG pCO2 POC ABG pO2 VBG pH Sodium Chloride Carbon Dioxide BUN 39 H Creatinine Glucose 136 H POC Glucose 126 H Lactic Acid Calcium 8.3 L Phosphorus Magnesium 1.30 L Total Bilirubin 7.70 H Direct Bilirubin AST Alkaline Phosphatase 140 H Ammonia Total Creatine Kinase CK-MB (CK-2) CK-MB (CK-2) Rel Index Troponin T NT-Pro-B Natriuret Pep Total Protein 5.6 L Albumin 1.7 L LDL Cholesterol Direct HDL Cholesterol Vancomycin Trough 06/04/19 06/04/19 06/04/19 05:44 13:50 18:05 WBC RBC Hgb Hct MCH RDW Seg Neuts % (Manual) Lymphocytes % (Manual) Nucleated RBC % Seg Neutrophils # Man Lymphocytes # (Manual) PT INR POC ABG pH POC ABG pCO2 POC ABG pO2 VBG pH Sodium Chloride Carbon Dioxide BUN Creatinine Glucose POC Glucose 124 H 137 H 120 H Lactic Acid Calcium Phosphorus Magnesium Total Bilirubin Direct Bilirubin AST Alkaline Phosphatase Ammonia Total Creatine Kinase CK-MB (CK-2) CK-MB (CK-2) Rel Index Troponin T NT-Pro-B Natriuret Pep Total Protein Albumin LDL Cholesterol Direct HDL Cholesterol Vancomycin Trough 06/05/19 06/05/19 06/05/19 00:58 04:20 04:20 WBC 15.0 H RBC Hgb Hct MCH 27 L RDW 25.0 H Seg Neuts % (Manual) Lymphocytes % (Manual) Nucleated RBC % Seg Neutrophils # Man Lymphocytes # (Manual) PT INR POC ABG pH POC ABG pCO2 POC ABG pO2 VBG pH Sodium Chloride Carbon Dioxide BUN 52 H Creatinine Glucose 137 H POC Glucose 114 H Lactic Acid Calcium 7.8 L Phosphorus Magnesium Total Bilirubin Direct Bilirubin AST Alkaline Phosphatase Ammonia Total Creatine Kinase CK-MB (CK-2) CK-MB (CK-2) Rel Index Troponin T NT-Pro-B Natriuret Pep Total Protein Albumin LDL Cholesterol Direct HDL Cholesterol Vancomycin Trough 06/05/19 06/05/19 06/05/19 05:39 05:45 09:45 WBC RBC Hgb Hct MCH RDW Seg Neuts % (Manual) Lymphocytes % (Manual) Nucleated RBC % Seg Neutrophils # Man Lymphocytes # (Manual) PT INR POC ABG pH POC ABG pCO2 POC ABG pO2 108 H VBG pH Sodium Chloride Carbon Dioxide BUN Creatinine Glucose POC Glucose 111 H Lactic Acid Calcium Phosphorus Magnesium Total Bilirubin Direct Bilirubin AST Alkaline Phosphatase Ammonia Total Creatine Kinase CK-MB (CK-2) CK-MB (CK-2) Rel Index Troponin T NT-Pro-B Natriuret Pep Total Protein Albumin LDL Cholesterol Direct HDL Cholesterol Vancomycin Trough 20.1 H 06/05/19 06/05/19 06/06/19 13:25 18:27 00:01 WBC RBC Hgb Hct MCH RDW Seg Neuts % (Manual) Lymphocytes % (Manual) Nucleated RBC % Seg Neutrophils # Man Lymphocytes # (Manual) PT INR POC ABG pH POC ABG pCO2 POC ABG pO2 VBG pH Sodium Chloride Carbon Dioxide BUN Creatinine Glucose POC Glucose 152 H 194 H 153 H Lactic Acid Calcium Phosphorus Magnesium Total Bilirubin Direct Bilirubin AST Alkaline Phosphatase Ammonia Total Creatine Kinase CK-MB (CK-2) CK-MB (CK-2) Rel Index Troponin T NT-Pro-B Natriuret Pep Total Protein Albumin LDL Cholesterol Direct HDL Cholesterol Vancomycin Trough 06/06/19 06/06/19 06/06/19 04:20 05:45 12:32 WBC RBC Hgb Hct MCH RDW Seg Neuts % (Manual) Lymphocytes % (Manual) Nucleated RBC % Seg Neutrophils # Man Lymphocytes # (Manual) PT INR POC ABG pH POC ABG pCO2 POC ABG pO2 VBG pH Sodium Chloride Carbon Dioxide BUN 62 H Creatinine Glucose 141 H POC Glucose 161 H 131 H Lactic Acid Calcium 7.7 L Phosphorus 2.40 L Magnesium Total Bilirubin Direct Bilirubin AST Alkaline Phosphatase Ammonia Total Creatine Kinase CK-MB (CK-2) CK-MB (CK-2) Rel Index Troponin T NT-Pro-B Natriuret Pep Total Protein Albumin LDL Cholesterol Direct HDL Cholesterol Vancomycin Trough 06/07/19 06/07/19 06/07/19 02:07 05:36 05:36 WBC 25.3 H RBC Hgb 10.8 L Hct 33.7 L MCH 27 L RDW 26.7 H Seg Neuts % (Manual) Lymphocytes % (Manual) Nucleated RBC % Seg Neutrophils # Man Lymphocytes # (Manual) PT INR POC ABG pH POC ABG pCO2 POC ABG pO2 VBG pH Sodium 135 L Chloride 93.6 L Carbon Dioxide BUN 58 H Creatinine Glucose 131 H POC Glucose 165 H Lactic Acid Calcium 8.0 L Phosphorus Magnesium Total Bilirubin Direct Bilirubin AST Alkaline Phosphatase Ammonia Total Creatine Kinase CK-MB (CK-2) CK-MB (CK-2) Rel Index Troponin T NT-Pro-B Natriuret Pep Total Protein Albumin LDL Cholesterol Direct HDL Cholesterol Vancomycin Trough 06/07/19 06/07/19 06/07/19 09:44 18:05 23:51 WBC RBC Hgb Hct MCH RDW Seg Neuts % (Manual) Lymphocytes % (Manual) Nucleated RBC % Seg Neutrophils # Man Lymphocytes # (Manual) PT INR POC ABG pH 7.508 H POC ABG pCO2 POC ABG pO2 75 L VBG pH Sodium Chloride Carbon Dioxide BUN Creatinine Glucose POC Glucose 137 H 180 H Lactic Acid Calcium Phosphorus Magnesium Total Bilirubin Direct Bilirubin AST Alkaline Phosphatase Ammonia Total Creatine Kinase CK-MB (CK-2) CK-MB (CK-2) Rel Index Troponin T NT-Pro-B Natriuret Pep Total Protein Albumin LDL Cholesterol Direct HDL Cholesterol Vancomycin Trough 06/08/19 06/08/19 06/08/19 05:07 05:07 06:26 WBC 25.1 H RBC 3.21 L Hgb 8.8 L Hct 27.3 L D MCH RDW 27.7 H Seg Neuts % (Manual) Lymphocytes % (Manual) Nucleated RBC % Seg Neutrophils # Man Lymphocytes # (Manual) PT INR POC ABG pH POC ABG pCO2 POC ABG pO2 VBG pH Sodium 134 L Chloride 97.2 L Carbon Dioxide BUN 49 H Creatinine 0.7 L Glucose 144 H POC Glucose 149 H Lactic Acid Calcium 7.7 L Phosphorus Magnesium Total Bilirubin Direct Bilirubin AST Alkaline Phosphatase Ammonia Total Creatine Kinase CK-MB (CK-2) CK-MB (CK-2) Rel Index Troponin T NT-Pro-B Natriuret Pep Total Protein Albumin LDL Cholesterol Direct HDL Cholesterol Vancomycin Trough 06/08/19 06/09/19 06/09/19 17:43 00:04 05:51 WBC RBC Hgb Hct MCH RDW Seg Neuts % (Manual) Lymphocytes % (Manual) Nucleated RBC % Seg Neutrophils # Man Lymphocytes # (Manual) PT INR POC ABG pH POC ABG pCO2 POC ABG pO2 VBG pH Sodium Chloride Carbon Dioxide BUN Creatinine Glucose POC Glucose 153 H 161 H 183 H Lactic Acid Calcium Phosphorus Magnesium Total Bilirubin Direct Bilirubin AST Alkaline Phosphatase Ammonia Total Creatine Kinase CK-MB (CK-2) CK-MB (CK-2) Rel Index Troponin T NT-Pro-B Natriuret Pep Total Protein Albumin LDL Cholesterol Direct HDL Cholesterol Vancomycin Trough
[2019-06-09 09:36] LABS: BUN/Creatinine Ratio 67; Blood Urea Nitrogen 40 mg/dL (9-20); Calcium 7.9 mg/dL (8.4-10.2); Hemolysis Index 19
[2019-06-09] MEDS: ARFORMOTEROL 15 MCG/2 ML NEBU IH SCH ×2 (09:45→21:41)
[2019-06-09] MEDS: BUDESONIDE 0.5 MG/2 ML NEBU IH SCH ×2 (09:45→21:41)
--- NOTE | 2019-06-09 10:10 | Progress Note ---
Assessment and Plan Cultures Blood culture 06/02/19 no growth to date Urine culture 06/02/19 no growth to date Surgical culture 06/02/19 Suni albicans Wound culture right foot 06/02/2019 - PsA, Morganella wound culture left foot 06/03/19 - GNR 1 and 2 Surgical foot culture Left 06/05/2019 - P mirabilis Surgical foot culture right 06/05/2019 - P mirabilis Assessment: 63 yo M significant cardiac PMHx, chronic bilateral wounds admitted with small perforated gastric ulcer. 1. Acute sepsis -present with tachycardia, leukocytosis. Likely secondary to pe rforated gastric ulcer vs infected chronic wounds 2. Infected bilateral infected wounds - his wounds are markedly worse than previous, even before considering how purulent they are. Comparing to the recent pictures from his March admission, there is considerable necrosis and purulence. I have severe concern for the viability of these limbs. Surgery is already on board, recommend they evaluate the legs for debridment vs amputation. Would get culture of pus. Continue antibiotics pending results. Recs: - stopped meropenem - Started cefepime 2g q8h and metronidazole 500mg q8h as all isolates sensitive - stopped vancomycin - follow up surgical recommendations of leg wounds. Dr. Oakes was consulted for possible amputation. - Suni in abdomen not surprising, however will add fluconazole 400mg q24h. Monitor QTc while on fluconazole given cardiac history. - had long conversation with patient regarding amputation. I explained that I don't feel we will be able to heal his infection with medications, and that he should strongly consider amputation. He said he would discuss with family and consider. Will follow. Dr. Cohen taking over tomorrow. [facility] ([facility] M: [phone] O: [phone] F: [phone] Subjective Date of service: 06/09/19 Principal diagnosis: perforated gastric ulcer Interval history: Afebrile, worsening leukocytosis. Objective - Exam Narrative Exam: General No distress, in bed. Eyes - PERRLA, EOM intact ENT - Moist mucous membranes, no lymphadenopathy Neck - No noticeable or palpable swelling, redness or rash around throat or on face Lymph Nodes - No lymphadenopathy Cardiovascular - RRR no m/r/g, no JVD, no carotid bruits Lungs - Clear to auscultation, no use of accessory muscles, no crackles or wheezes. Skin - Bilateral LE wounds, both feet under gauze. Noted pictures in chart. Abdomen - Normal bowel sounds, abdomen soft and nontender Extremities - No edema, cyanosis or clubbing - Constitutional Vitals: Vital Signs Temp Pulse Resp BP Pulse Ox 97.6 F 105 H 18 109/64 97 06/09/19 08:01 06/09/19 08:01 06/09/19 08:01 06/09/19 08:01 06/09/19 08:01 Temperature -Last 24 Hours Temperature 97.6 F Temperature 97.9 F Temperature 97.3 F Temperature 94.3 F Temperature 97.7 F Temperature 97.4 F Temperature 97.5 F - Labs CBC & Chem 7: 06/08/19 05:07 06/09/19 08:58 Labs: Abnormal lab results 06/08/19 06/09/19 06/09/19 Range/Units 17:43 00:04 05:51 Chloride (98-107) mmol/L BUN (9-20) mg/dL Creatinine (0.8-1.5) mg/dL Glucose (75-100) mg/dL POC Glucose 153 H 161 H 183 H (70-105) Calcium (8.4-10.2) mg/dL 06/09/19 Range/Units 08:58 Chloride 97.1 L (98-107) mmol/L BUN 40 H (9-20) mg/dL Creatinine 0.6 L (0.8-1.5) mg/dL Glucose 161 H (75-100) mg/dL POC Glucose (70-105) Calcium 7.9 L (8.4-10.2) mg/dL
[2019-06-09] MEDS: metroNIDAZOLE/NS 500 MG/100 ML 500 MG/100 ML BAG IV SCH ×2 (13:30→21:05)
--- NOTE | 2019-06-09 13:30 | Progress Note ---
Assessment and Plan clinically unchanged cxr reviewed - id following cont low dose bb although ST is most likely physiologic and not pathologic cont iv lasix no further nsvt will follow - Patient Problems (1) NSVT (nonsustained ventricular tachycardia) Current Visit: Yes Status: Acute (2) Perforated gastric ulcer Current Visit: Yes Status: Acute (3) Pleural effusion Current Visit: Yes Status: Acute (4) Prerenal azotemia Current Visit: Yes Status: Acute (5) Sepsis Current Visit: Yes Status: Acute Qualifiers: Sepsis type: sepsis due to unspecified organism Sepsis acute organ dysfunction status: unspecified Qualified Code(s): A41.9 - Sepsis, unspecified organism (6) CKD (chronic kidney disease) Current Visit: Yes Status: Chronic Qualifiers: (7) PAD (peripheral artery disease) Current Visit: Yes Status: Chronic (8) Pulmonary hypertension Current Visit: Yes Status: Chronic (9) Abnormal liver enzymes Current Visit: No Status: Acute (10) Acute CHF (congestive heart failure) Current Visit: No Status: Acute Qualifiers: Heart failure type: systolic Qualified Code(s): I50.21 - Acute systolic (congestive) heart failure (11) Cardiomyopathy Current Visit: No Status: Acute (12) Cellulitis of leg, left Current Visit: No Status: Acute (13) Cellulitis of leg, right Current Visit: No Status: Acute (14) Sinus tachycardia Current Visit: No Status: Acute (15) Hypertension Current Visit: No Status: Chronic Qualifiers: Hypertension type: essential hypertension Qualified Code(s): I10 - [facility] l (primary) hypertension (16) Obstructive airway disease Current Visit: No Status: Chronic Qualifiers: Chronic bronchitis type: simple (17) Pulmonary HTN Current Visit: No Status: Chronic Subjective Date of service: 06/09/19 Principal diagnosis: perforated gastric ulcer Interval history: less sob today, resting comfortably Objective Vital Signs Temp Pulse Pulse Resp Resp BP Pulse Ox 06/09/19 12:26 98.1 F 116 H 20 125/77 95 06/09/19 10:32 95 06/09/19 10:31 108 H 20 06/09/19 08:01 97.6 F 105 H 18 109/64 97 06/09/19 04:48 97.9 F 111 H 17 112/72 96 06/09/19 03:08 110 H 20 06/09/19 00:16 97.3 F L 06/09/19 00:13 94.3 F L 112 H 17 120/77 96 06/08/19 23:08 20 06/08/19 22:15 107 H 20 98 06/08/19 19:30 97.7 F 108 H 17 119/77 98 06/08/19 16:00 105 H 06/08/19 15:42 97.4 F L 109 H 18 120/80 99 - Physical Examination General: No Apparent Distress, Other (Mild distress) HEENT: Positive: EOMI, Normocephaly, Mucus Membranes Moist Neck: Positive: neck supple, trachea midline, Carotid Upstroke (full) Neuro: Positive: Grossly Intact Abdomen: Positive: Soft /Rectal: Other (Urine dark yellow) Skin: Positive: Other (multiple wounds on both lower extremities with areas of ischemic ulceration.) Musculoskeletal: Normal Range of Motion Extremities: Present: lower extr. pulses (LLE difficult to palpate d/t wound dressing and ischemic ulceration), Other (LLE - pulse difficult to palpate d/t wounds ) - Labs and Meds Comprehensive Metabolic Panel 06/09/19 Range/Units 08:58 Sodium 137 (137-145) mmol/L Potassium 4.6 (3.6-5.0) mmol/L Chloride 97.1 L (98-107) mmol/L Carbon Dioxide 27 (22-30) mmol/L BUN 40 H (9-20) mg/dL Creatinine 0.6 L (0.8-1.5) mg/dL Glucose 161 H (75-100) mg/dL Calcium 7.9 L (8.4-10.2) mg/dL - Imaging and Cardiology EKG: image reviewed Echo: report reviewed (02/28/19 showed EF of 10-15%, dilation of all chambers, moderate AR, moderate to severe TR and RV hypokinesis. ) Cardiac cath: report reviewed (04/2017 showed patent coronaries, EF 10-15%. ) - EKG Sinus rhythms and dysrhythmias: sinus rhythm Chamber hypertrophy or enlargement: left ventricular hypertro Repolarization changes or abnormalities: repolarization abn secondary to ventricular hypertrophy Myocardial infarction: septal AK (old age or ind
--- NOTE | 2019-06-09 14:03 | Progress Note ---
Assessment and Plan - Patient Problems (1) Perforated gastric ulcer Current Visit: Yes Status: Acute Plan to address problem: 63 yo M s/p exploratory laparotomy, omental patch of perforated gastric ulcer POD 7 1. sepsis 2. perforated gastric ulcer 3. severe malnutrition 4. b/l pleural effusions 5. bedbound 6. infected b/l LE wounds with likely chronic limb ischemia 7. cardiomyopathy 8. CHF Arterial duplex - no Plan: 1. Neuro - appears appropriate 2. CV - BP and HR stable. Cardiology on board 3. Resp - encourage pulm toilet 4. GI - TPN. Protonix BID. Continue full liquid diet. Should not be advanced beyond this level. The fluid leaking from the right side of the abdomen is ascites coming out the recently removed TANESHA drain site. This hole will not close quickly due to the pressure from the abdominal ascites. I have encouraged the patient to lay on his left side to take the pressure off which will decrease the output and allow the hole to seal. The opening should not be closed. Please cover this area with dry dressings and change as needed. 5. Endo - Blood glucose monitoring per protocol 6. ID - intraop cultures prelim - janeth. Lower extremity wound cx prelim - gram neg. Continue abx per ID. Multiple infected wounds of LE - continue wound care per rn field. Leg wounds probably account for spike in WBC. Abd not impressive at this time. 7. - garcia for strict I/Os. 8. Musc - DVT ppx. Offloading. Dr. Oakes managing LE for debridement vs amputation. Please call with questions. Subjective Date of service: 06/09/19 Patient Reports: Positive: tolerating liquids well, bowel movement, other (concerned about fluid coming out of drain site) Objective Vital Signs - 12hr 06/09/19 06/09/19 06/09/19 03:08 04:48 08:01 Temperature 97.9 F 97.6 F Pulse Rate 111 H 105 H Pulse Rate [ 110 H Anterior Bilateral Throughout] Respiratory 17 18 Rate Respiratory 20 Rate [Anterior Bilateral Throughout] Blood Pressure 112/72 109/64 O2 Sat by Pulse 96 97 Oximetry 06/09/19 06/09/19 06/09/19 10:31 10:32 12:26 Temperature 98.1 F Pulse Rate 116 H Pulse Rate [ 108 H Anterior Bilateral Throughout] Respiratory 20 Rate Respiratory 20 Rate [Anterior Bilateral Throughout] Blood Pressure 125/77 O2 Sat by Pulse 95 95 Oximetry 06/09/19 13:26 Temperature Pulse Rate Pulse Rate [ 110 H Anterior Bilateral Throughout] Respiratory Rate Respiratory 20 Rate [Anterior Bilateral Throughout] Blood Pressure O2 Sat by Pulse Oximetry - General physical appearance no distress, no pain, other (appears jaundiced) - Respiratory normal expansion, normal respiratory effort - Abdomen soft, not tender, surgical scars (C/d/I. ), other (old TANESHA site is leaking serous fluid. ) - Labs 06/08/19 05:07 06/09/19 08:58 Diabetes panel 06/09/19 Range/Units 08:58 Sodium 137 (137-145) mmol/L Potassium 4.6 (3.6-5.0) mmol/L Chloride 97.1 L (98-107) mmol/L Carbon Dioxide 27 (22-30) mmol/L BUN 40 H (9-20) mg/dL Creatinine 0.6 L (0.8-1.5) mg/dL Glucose 161 H (75-100) mg/dL Calcium 7.9 L (8.4-10.2) mg/dL Calcium panel 06/09/19 Range/Units 08:58 Calcium 7.9 L (8.4-10.2) mg/dL Phosphorus 3.00 (2.5-4.5) mg/dL Pituitary panel 06/09/19 Range/Units 08:58 Sodium 137 (137-145) mmol/L Potassium 4.6 (3.6-5.0) mmol/L Chloride 97.1 L (98-107) mmol/L Carbon Dioxide 27 (22-30) mmol/L BUN 40 H (9-20) mg/dL Creatinine 0.6 L (0.8-1.5) mg/dL Glucose 161 H (75-100) mg/dL Calcium 7.9 L (8.4-10.2) mg/dL Adrenal panel 06/09/19 Range/Units 08:58 Sodium 137 (137-145) mmol/L Potassium 4.6 (3.6-5.0) mmol/L Chloride 97.1 L (98-107) mmol/L Carbon Dioxide 27 (22-30) mmol/L BUN 40 H (9-20) mg/dL Creatinine 0.6 L (0.8-1.5) mg/dL Glucose 161 H (75-100) mg/dL Calcium 7.9 L (8.4-10.2) mg/dL
--- NOTE | 2019-06-09 14:16 | Gastroenterology Consultation ---
History of Present Illness - Reason for Consult Consult date: 06/09/19 Hyperbilirubinemia Requesting physician: REUBEN HARRIS - History of Present Illness The patient is a 63 yo male evaluated by us in Mar for elevated LFTs. The consensus at that point was likely CHF/hepatic congestion related, with possible BAILEY as well. He was admitted in May with a perforated gastric ulcer. He has been on TPN for > 7 days. He is consuming some liquids in diet, but has not advanced beyond this point. He is on numerous new antibiotics, but no amiodarone or other hepatotoxic medications. He is not taking excess tylenol based on PRN dosing. He denies N/V/RUQ pain/itching. He is tolerating full liquids without emesis or pain. He denies EtOH x years. Past History Past Medical History: arrhythmia (NSVT, sinus pauses), heart failure (chronic HFrEF), hypertension, renal failure (JOHN), other ( Normal coronaries 04/25.) Past Surgical History: cataract removal, Other (surgery for renal stones) Social history: lives with family, alcohol abuse Family history: diabetes. denies: CAD Medications and Allergies Allergies Allergy/AdvReac Type Severity Reaction Status Date / Time venom-honey bee Allergy Hives Verified 04/03/19 10:10 [bee venom (honey bee)] morphine AdvReac Unknown Verified 04/03/19 10:10 Penicillins AdvReac Nausea Verified 04/08/19 08:57 Home Medications Medication Instructions Recorded Confirmed Last Taken Type traMADoL [Ultram 50 MG tab] 50 mg PO Q6HR PRN #12 tablet 03/25/19 06/03/19 03/30/19 Rx ALBUTEROL Inhaler (OR & NICU) 2 puff IH QID PRN #2 inha 04/08/19 06/03/19 Unknown Rx [ProAir HFA Inhaler] ALBUTEROL NEB's [Proventil 0.083% 2.5 mg IH QIDRT PRN #30 nebu 04/08/19 06/03/19 Unknown Rx NEBS] Aspirin EC [Halfprin EC] 81 mg PO DAILY #30 04/08/19 06/03/19 03/30/19 Rx Azithromycin [Zithromax TAB] 2 tab PO QDAY #2 tablet 04/08/19 06/03/19 Unknown Rx Budesonide/Formoterol Fumarate 2 puff IH BID #1 unit 04/08/19 06/03/19 Unknown Rx [Symbicort 160-4.5 Mcg Inhaler] Furosemide [Lasix TAB] 40 mg PO DAILY@0600 #30 tablet 04/08/19 06/03/19 Unknown Rx Spironolactone [Aldactone] 50 mg PO QDAY #30 tablet 04/08/19 06/03/19 Unknown Rx carvediloL [Coreg] 3.125 mg PO BID #60 tablet 04/08/19 06/03/19 Unknown Rx cefUROXime [Ceftin] 2 tab PO BID #8 tablet 04/08/19 06/03/19 Unknown Rx Active Meds: Active Medications Albuterol (Proventil) 2.5 mg IH Q4H PRN PRN Reason: Shortness Of Breath Albuterol/Ipratropium (Duoneb *Not For Prn Use*) 1 ampul IH Q6HRT [facility] Last Admin: 06/09/19 13:14 Dose: 1 ampul Documented by: Arformoterol Tartrate (Brovana Nebu) 15 mcg IH Q12HRT [facility] Last Admin: 06/09/19 09:45 Dose: 15 mcg Documented by: Budesonide (Pulmicort) 0.5 mg IH Q12HRT [facility] Last Admin: 06/09/19 09:45 Dose: 0.5 mg Documented by: Calcium Carbonate/Glycine (Tums) 1,000 mg PO Q4H PRN PRN Reason: Indigestion Furosemide (Lasix) 40 mg IV DAILY@0600 [facility] Last Admin: 06/09/19 05:08 Dose: 40 mg Documented by: Hydromorphone HCl (Dilaudid) 0.25 mg IV Q3H PRN PRN Reason: Pain , Severe (7-10) Last Admin: 06/09/19 12:58 Dose: 0.25 mg Documented by: Fluconazole (Diflucan) 200 mls @ 100 mls/hr IV Q24HR [facility]; Protocol Last Admin: 06/09/19 11:17 Dose: Not Given Documented by: Amino Acids/Electrolytes/Dextrose (Tpn Adult) 1,560 mls @ 65 mls/hr IV DAILY@2000 [facility]; Protocol Stop: 06/09/19 19:59 Last Admin: 06/08/19 22:43 Dose: 65 mls/hr Documented by: Chlorpromazine HCl 25 mg/ (Sodium Chloride) 51 mls @ 100 mls/hr IV Q4H PRN PRN Reason: Hiccups Amino Acids/Electrolytes/Dextrose (Tpn Adult) 1,560 mls @ 65 mls/hr IV DAILY@2000 [facility]; Protocol Amino Acids/Electrolytes/Dextrose (Tpn Adult) 1,560 mls @ 65 mls/hr IV DAILY@2000 [facility]; Protocol Vancomycin HCl (Vancomycin/Ns 1 Gm/250 Ml) 1 gm in 250 mls @ 167.007 mls/hr IV Q24HR [facility] Cefepime HCl (Cefepime/Ns 2 Gm/100 Ml) 2 gm in 100 mls @ 200 mls/hr IV Q8HR [facility]; Protocol Metronidazole (Flagyl 500 Mg/100 Ml) 500 mg in 100 mls @ 100 mls/hr IV Q8HR [facility]; Protocol Last Admin: 06/09/19 13:30 Dose: 100 mls/hr Documented by: Insulin Human Lispro (Humalog) 0 unit SUB-Q Q6HR [facility]; Protocol Last Admin: 06/09/19 12:35 Dose: 1 unit Documented by: Ondansetron HCl (Zofran) 4 mg IV Q8H PRN PRN Reason: Nausea And Vomiting Last Admin: 06/08/19 19:24 Dose: 4 mg Documented by: Pantoprazole Sodium (Protonix) 40 mg IV BID [facility] Last Admin: 06/09/19 11:20 Dose: Not Given Documented by: Sodium Hypochlorite (Dakin's Half Strength) 1 applic TP BID [facility] Last Admin: 06/09/19 11:16 Dose: Not Given Documented by: I HAVE REVIEWED AND RECONCILED MEDICATIONS Review of Systems - Review of Systems All systems: negative (as noted in the HPI.) Exam - Constitutional Vital Signs: Temp Pulse Resp BP Pulse Ox 98.1 F 110 H 20 125/77 95 06/09/19 12:26 06/09/19 13:26 06/09/19 13:26 06/09/19 12:26 06/09/19 12:26 General appearance: no acute distress - EENT Eyes: PERRL, EOM intact, scleral icterus ENT: hearing intact, clear oral mucosa, poor dentition, no thrush - Neck Neck: supple, normal ROM - Respiratory Respiratory effort: normal Respiratory: bilateral: CTA - Cardiovascular Rhythm: regular Heart Sounds: Present: S1 & S2 Extremities: no ischemia, No edema - Gastrointestinal General gastrointestinal: Present: soft, non-tender, non-distended, other (Surigcal site C/D/I. Port site in RLQ leaking trace serosanguinous fluid.) - Labs CBC & Chem 7: 06/08/19 05:07 06/09/19 08:58 Lab Results: Laboratory Results - last 24 hr 06/08/19 06/09/19 06/09/19 17:43 00:04 05:51 Sodium Potassium Chloride Carbon Dioxide Anion Gap BUN Creatinine Estimated GFR BUN/Creatinine Ratio Glucose POC Glucose 153 H 161 H 183 H Calcium Phosphorus Magnesium Vancomycin Trough 06/09/19 06/09/19 06/09/19 08:58 08:58 11:53 Sodium 137 Potassium 4.6 Chloride 97.1 L Carbon Dioxide 27 Anion Gap 18 BUN 40 H Creatinine 0.6 L Estimated GFR > 60 BUN/Creatinine Ratio 67 Glucose 161 H POC Glucose 189 H Calcium 7.9 L Phosphorus 3.00 Magnesium 1.70 Vancomycin Trough 11.6 Assessment and Plan - Patient Problems (1) Hyperbilirubinemia Current Visit: Yes Status: Acute Plan to address problem: - CT 05/2019 negative, and serologies (hepatitis etc) negative March. 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 - Patient has been on TPN > 7 days, and several new abx. - Most likely dx is decompensation from acute sepsis, with cardiac hepatopathy worsened by TPN. - Recommend advance diet as soon as possible, to wean off TPN (brigid lipids). - Optimization of cardiac status (as possible). - Will check LFTs tomorrow, but no further w/u at present if stable. If mostly due to TPN/congestive hepatopathy, will be several days to a few weeks to resolve, and will likely have chronic hyperbilirubinemia.
[2019-06-09] MEDS: CEFEPIME/NS 2 GM/100 ML 2 GM/100 ML BAG IV SCH ×2 (16:00→21:05)
--- NOTE | 2019-06-09 17:09 | Progress Note ---
Assessment and Plan Assessment and plan: Patient is a 63 yo man with a history of NICMP, chronic HFrEF 10-15%, NSVT declines LifeVest/AICD, CKD 3, HTN and mod to severe TR, b/l LE wounds, bedbound who presents to [facility] ED with c/o abdominal pain for 3 days. He had multiple bilateral lower extremity wound and stage I to 2 lower extremity ulcer covered with pus. CT abdomen and pelvis suggestive of pneumoperitoneum. General surgery was consulted and patient was taken for OR for exploratory laparotomy by general surgeon. He also received empiric antibiotics. He was intubated per-operatively,extubated 06/05, transferred to Surgical floor. He is improving , now on full liquid diet. Perforated gastric ulcer. - - General surgery consulted for perforated bowel - s/p exploratory laparotomy, omental patch of perforated gastric ulcer by Dr. Sims, Surgeon, POD 2 - cont empiric abx,cautious IV fluid, may need to start on TPN -Started on full liquid diet Sepsis with bilateral lower extremity cellulitis/infected ulcer and perforated bowel - Continue empiric antibiotics, obtain blood cultures, wound culture - Wound care consult placed,following -ID Physician following bilateral lower extremity cellulitis/infected ulcer - from PVD - s/p bilateral I and D done 06/[address] Oakes,Surgeon -Amputation recommended but he has not consented Moderate b/l pleural effusion CHFrEF 10-15% - Cardiology consulted - monitor ins/os, daily lasix iv to prevent fluid overload Chronic systolic CHF cardiology following Severe protein calorie malnutrition - nutrition consult, may need TPN CKD stage III, monitor renal function, avoid nephrotoxin - renal function stable Jaundice Elevated bilirubin, Total Bili of 7.7 Consult GI. I discussed with Dr. Scott Severe metabolic acidosis likely due to perforated bowel - bicarbonate as needed Acute respiratory failure following surgery - CC following, cont nebs, -Extubated 06/05 - Provide GI and DVT prophylaxis Discussed with Dr. Issa. OK to give Heparin subcut History Interval history: s/p abdominal surgery Extubated 06/05 Started on full liquid diet Hospitalist Physical - Physical exam Narrative exam: Gen: Not in acute distress, lying in bed, Jaundiced HEENT: Normocephalic, atraumatic Neck: supple, no JVD Heart: S1 and S2 reg, no murmurs, rubs or gallop Lungs: Clear to auscultation bilaterally, Abd: soft, NT, wound dry, surgical drain removed, Ext: Dressing over wounds both legs, Black toes both feet, swelling both upper and lower ext, Neuro: awake,alert,oriented, moves all ext - Constitutional Vitals: Temp Pulse Resp BP Pulse Ox 98.0 F 120 H 18 128/76 96 06/09/19 15:48 06/09/19 15:48 06/09/19 15:48 06/09/19 15:48 06/09/19 15:48 General appearance: Present: no acute distress Results - Labs CBC & Chem 7: 06/08/19 05:07 06/09/19 08:58 Labs: Laboratory Last Values WBC 25.1 K/mm3 (4.5-11.0) H 06/08/19 05:07 RBC 3.21 M/mm3 (3.65-5.03) L 06/08/19 05:07 Hgb 8.8 gm/dl (11.8-15.2) L 06/08/19 05:07 Hct 27.3 % (35.5-45.6) L D 06/08/19 05:07 MCV 85 fl (84-94) 06/08/19 05:07 MCH 28 pg (28-32) 06/08/19 05:07 MCHC 32 % (32-34) 06/08/19 05:07 RDW 27.7 % (13.2-15.2) H 06/08/19 05:07 Plt Count 241 K/mm3 (140-440) 06/08/19 05:07 Add Manual Diff Complete 06/04/19 05:10 Total Counted 100 06/04/19 05:10 Seg Neutrophils % Ip Litigation Associate 06/04/19 05:10 Seg Neuts % (Manual) 94.0 % (40.0-70.0) H 06/04/19 05:10 Band Neutrophils % 0 % 06/04/19 05:10 Lymphocytes % (Manual) 3.0 % (13.4-35.0) L 06/04/19 05:10 Reactive Lymphs % (Man) 0 % 06/04/19 05:10 Monocytes % (Manual) 2.0 % (0.0-7.3) 06/04/19 05:10 Eosinophils % (Manual) 1.0 % (0.0-4.3) 06/04/19 05:10 Basophils % (Manual) 0 % (0.0-1.8) 06/04/19 05:10 Metamyelocytes % 0 % 06/04/19 05:10 Myelocytes % 0 % 06/04/19 05:10 Promyelocytes % 0 % 06/04/19 05:10 Blast Cells % 0 % 06/04/19 05:10 Nucleated RBC % Not Reportable 06/04/19 05:10 Seg Neutrophils # Man 15.7 K/mm3 (1.8-7.7) H 06/04/19 05:10 Band Neutrophils # 0.0 K/mm3 06/04/19 05:10 Lymphocytes # (Manual) 0.5 K/mm3 (1.2-5.4) L 06/04/19 05:10 Abs React Lymphs (Man) 0.0 K/mm3 06/04/19 05:10 Monocytes # (Manual) 0.3 K/mm3 (0.0-0.8) 06/04/19 05:10 Eosinophils # (Manual) 0.2 K/mm3 (0.0-0.4) 06/04/19 05:10 Basophils # (Manual) 0.0 K/mm3 (0.0-0.1) 06/04/19 05:10 Metamyelocytes # 0.0 K/mm3 06/04/19 05:10 Myelocytes # 0.0 K/mm3 06/04/19 05:10 Promyelocytes # 0.0 K/mm3 06/04/19 05:10 Blast Cells # 0.0 K/mm3 06/04/19 05:10 WBC Morphology Not Reportable 06/04/19 05:10 Hypersegmented Neuts Not Reportable 06/04/19 05:10 Hyposegmented Neuts Not Reportable 06/04/19 05:10 Hypogranular Neuts Not Reportable 06/04/19 05:10 Smudge Cells Not Reportable 06/04/19 05:10 Toxic Granulation Not Reportable 06/04/19 05:10 Toxic Vacuolation Not Reportable 06/04/19 05:10 Dohle Bodies Not Reportable 06/04/19 05:10 Pelger-Huet Anomaly Not Reportable 06/04/19 05:10 Romero Rods Not Reportable 06/04/19 05:10 Platelet Estimate Consistent w auto 06/04/19 05:10 Clumped Platelets Not Reportable 06/04/19 05:10 Plt Clumps, EDTA Not Reportable 06/04/19 05:10 Large Platelets Not Reportable 06/04/19 05:10 Giant Platelets Not Reportable 06/04/19 05:10 Platelet Satelliting Not Reportable 06/04/19 05:10 Plt Morphology Comment Not Reportable 06/04/19 05:10 RBC Morphology Not Reportable 06/04/19 05:10 Dimorphic RBCs Not Reportable 06/04/19 05:10 Polychromasia Not Reportable 06/04/19 05:10 Hypochromasia Few 06/04/19 05:10 Poikilocytosis Not Reportable 06/04/19 05:10 Anisocytosis 1+ 06/04/19 05:10 Microcytosis Not Reportable 06/04/19 05:10 Macrocytosis Not Reportable 06/04/19 05:10 Spherocytes Not Reportable 06/04/19 05:10 Pappenheimer Bodies Not Reportable 06/04/19 05:10 Sickle Cells Not Reportable 06/04/19 05:10 Target Cells 1+ 06/04/19 05:10 Tear Drop Cells Not Reportable 06/04/19 05:10 Ovalocytes Not Reportable 06/04/19 05:10 Helmet Cells Not Reportable 06/04/19 05:10 Grimes-Nada Bodies Not Reportable 06/04/19 05:10 [place] Rings Not Reportable 06/04/19 05:10 Tennyson Cells Not Reportable 06/04/19 05:10 Bite Cells Not Reportable 06/04/19 05:10 Crenated Cell Not Reportable 06/04/19 05:10 Elliptocytes Not Reportable 06/04/19 05:10 Acanthocytes (Spur) Not Reportable 06/04/19 05:10 Rouleaux Not Reportable 06/04/19 05:10 Hemoglobin C Crystals Not Reportable 06/04/19 05:10 Schistocytes Not Reportable 06/04/19 05:10 Malaria parasites Not Reportable 06/04/19 05:10 Bunny Bodies Not Reportable 06/04/19 05:10 Hem Pathologist Commnt No 06/04/19 05:10 PT 17.9 Sec. (12.2-14.9) H 06/02/19 07:15 INR 1.50 (0.87-1.13) H 06/02/19 07:15 APTT 33.2 Sec. (24.2-36.6) 06/02/19 07:15 POC ABG pH 7.508 (7.35-7.45) H 06/07/19 09:44 POC ABG pCO2 41.5 (35-45) 06/07/19 09:44 POC ABG pO2 75 (80-105) L 06/07/19 09:44 POC ABG HCO3 33.0 (22-26 mml/L) 06/07/19 09:44 POC ABG Total CO2 34 (23-27mmol/L) 06/07/19 09:44 POC ABG O2 Sat 96 06/07/19 09:44 POC ABG Base Excess 10 ((-2) - (+3)mmol/L) 06/07/19 09:44 VBG pH 7.310 (7.320-7.420) L 06/02/19 07:15 FiO2 21 % 06/07/19 09:44 Sodium 137 mmol/L (137-145) 06/09/19 08:58 Potassium 4.6 mmol/L (3.6-5.0) 06/09/19 08:58 Chloride 97.1 mmol/L (98-107) L 06/09/19 08:58 Carbon Dioxide 27 mmol/L (22-30) 06/09/19 08:58 Anion Gap 18 mmol/L 06/09/19 08:58 BUN 40 mg/dL (9-20) H 06/09/19 08:58 Creatinine 0.6 mg/dL (0.8-1.5) L 06/09/19 08:58 Estimated GFR > 60 ml/min 06/09/19 08:58 BUN/Creatinine Ratio 67 % 06/09/19 08:58 Glucose 161 mg/dL (75-100) H 06/09/19 08:58 POC Glucose 189 (70-105) H 06/09/19 11:53 Lactic Acid 1.10 mmol/L (0.7-2.0) 06/02/19 09:17 Calcium 7.9 mg/dL (8.4-10.2) L 06/09/19 08:58 Phosphorus 3.00 mg/dL (2.5-4.5) 06/09/19 08:58 Magnesium 1.70 mg/dL (1.7-2.3) 06/09/19 08:58 Total Bilirubin 7.70 mg/dL (0.1-1.2) H 06/04/19 05:10 Direct Bilirubin 4.5 mg/dL (0-0.2) H 06/02/19 07:15 Indirect Bilirubin 1.9 mg/dL 06/02/19 07:15 AST 30 units/L (5-40) 06/04/19 05:10 ALT 29 units/L (7-56) 06/04/19 05:10 Alkaline Phosphatase 140 units/L (35-129) H 06/04/19 05:10 Ammonia 16.0 umol/L (25-60) L 06/02/19 07:15 Total Creatine Kinase 53 units/L (55-170) L 06/02/19 07:15 CK-MB (CK-2) 5.1 ng/mL (0.0-4.0) H 06/02/19 07:15 CK-MB (CK-2) Rel Index 9.6 (0-4) H 06/02/19 07:15 Troponin T 0.065 ng/mL (0.00-0.029) H 06/02/19 07:15 NT-Pro-B Natriuret Pep > 71458 pg/mL (0-900) H 06/02/19 07:15 Total Protein 5.6 g/dL (6.3-8.2) L 06/04/19 05:10 Albumin 1.7 g/dL (3.9-5) L 06/04/19 05:10 Albumin/Globulin Ratio 0.4 % 06/04/19 05:10 Triglycerides 112 mg/dL (2-149) 06/02/19 07:15 Cholesterol 73 mg/dL (50-199) 06/02/19 07:15 LDL Cholesterol Direct 31 mg/dL (50-130) L 06/02/19 07:15 HDL Cholesterol 8 mg/dL (40-59) L 06/02/19 07:15 Cholesterol/HDL Ratio 9.12 % 06/02/19 07:15 Lipase 56 units/L (13-60) 06/02/19 07:15 Urine Color Clarita (Yellow) 06/02/19 10:37 Urine Turbidity Clear (Clear) 06/02/19 10:37 Urine pH 5.0 (5.0-7.0) 06/02/19 10:37 Ur Specific [place] 1.019 (1.003-1.030) 06/02/19 10:37 Urine Protein <15 mg/dl mg/dL (Negative) 06/02/19 10:37 Urine Glucose (UA) 50 mg/dL (Negative) 06/02/19 10:37 Urine Ketones Neg mg/dL (Negative) 06/02/19 10:37 Urine Blood Neg (Negative) 06/02/19 10:37 Urine Nitrite Neg (Negative) 06/02/19 10:37 Urine Bilirubin Neg (Negative) 06/02/19 10:37 Urine Urobilinogen 4.0 mg/dL (<2.0) 06/02/19 10:37 Ur Leukocyte Esterase Neg (Negative) 06/02/19 10:37 Urine WBC (Auto) 2.0 /HPF (0.0-6.0) 06/02/19 10:37 Urine RBC (Auto) 2.0 /HPF (0.0-6.0) 06/02/19 10:37 Urine Bacteria (Auto) 1+ /HPF (Negative) 06/02/19 10:37 Vancomycin Trough 11.6 ug/mL (5.0-20.0) 06/09/19 08:58 Blood Type A POSITIVE 06/02/19 11:55 Antibody Screen Negative 06/02/19 11:55 Active Medications - Current Medications Current Medications: Generic Name Dose Route Start Last Admin Trade Name Freq PRN Reason Stop Dose Admin Albuterol 2.5 mg 06/02/19 11:28 Proventil IH Q4H PRN Shortness Of Breath Albuterol/Ipratropium 1 ampul 06/06/19 20:00 06/09/19 13:14 Duoneb *Not For Prn Use* IH 1 ampul Q6HRT [facility] Administration Arformoterol Tartrate 15 mcg 06/02/19 20:00 06/09/19 09:45 Brovana Nebu IH 15 mcg Q12HRT [facility] Administration Budesonide 0.5 mg 06/02/19 20:00 06/09/19 09:45 Pulmicort IH 0.5 mg Q12HRT [facility] Administration Calcium Carbonate/Glycine 1,000 mg 06/09/19 14:04 Tums PO Q4H PRN Indigestion Furosemide 40 mg 06/03/19 13:00 06/09/19 05:08 Lasix IV 40 mg DAILY@0600 [facility] Administration Hydromorphone HCl 0.25 mg 06/05/19 10:55 06/09/19 12:58 Dilaudid IV 0.25 mg Q3H PRN Administration Pain , Severe (7-10) Fluconazole 200 mls @ 100 mls/hr 06/04/19 13:00 06/09/19 11:17 Diflucan IV Not Given Q24HR [facility] Protocol Amino Acids/Electrolytes/Dextrose 1,560 mls @ 65 mls/hr 06/08/19 20:00 06/08/19 22:43 Tpn Adult IV 06/09/19 19:59 65 mls/hr DAILY@1999 [facility] Administration Protocol Chlorpromazine HCl 25 mg/ 51 mls @ 100 mls/hr 06/08/19 15:00 Sodium Chloride IV Q4H PRN Hiccups Amino Acids/Electrolytes/Dextrose 1,560 mls @ 65 mls/hr 06/09/19 20:00 Tpn Adult IV DAILY@1999 [facility] Protocol Amino Acids/Electrolytes/Dextrose 1,560 mls @ 65 mls/hr 06/09/19 20:00 Tpn Adult IV DAILY@1999 [facility] Protocol Vancomycin HCl 1 gm in 250 mls @ 167.007 mls/hr 06/10/19 10:00 Vancomycin/Ns 1 Gm/250 Ml IV Q24HR [facility] Cefepime HCl 2 gm in 100 mls @ 200 mls/hr 06/09/19 14:00 Cefepime/Ns 2 Gm/100 Ml IV Q8HR [facility] Protocol Metronidazole 500 mg in 100 mls @ 100 mls/hr 06/09/19 14:00 06/09/19 13:30 Flagyl 500 Mg/100 Ml IV 100 mls/hr Q8HR [facility] Administration Protocol Insulin Human Lispro 0 unit 06/08/19 06:00 06/09/19 12:35 Humalog SUB-Q 1 unit Q6HR [facility] Administration Protocol Ondansetron HCl 4 mg 06/08/19 14:30 06/08/19 19:24 Zofran IV 4 mg Q8H PRN Administration Nausea And Vomiting Pantoprazole Sodium 40 mg 06/04/19 10:00 06/09/19 11:20 Protonix IV Not Given BID [facility] Sodium Hypochlorite 1 applic 06/05/19 22:00 06/09/19 11:16 Dakin's Half Strength TP Not Given BID [facility] Nutrition/Malnutrition Assess - Dietary Evaluation Nutrition/Malnutrition Findings: Nutrition Notes Start: 06/03/19 11:22 Freq: Status: Active Protocol: Document 06/09/19 10:43 LM (Rec: 06/09/19 10:50 LM [id number]) Nutrition Notes Initial or Follow up Reassessment Current Diagnosis CKD(stage I-IV),Decubitus( Pressure Ulcer),Sepsis, Hypertension,Heart Failure Other Pertinent Diagnosis Perforated viscus S/P exp lap Current Diet CPN at 65 ml/hr and full liquid Labs/Tests BUN 40 Cr 0.6 BG 161 Pertinent Medications Humalog Lasix Height 5 ft 7 in Weight 61.1 kg [place] Body Weight (kg) 67.27 BMI 21.1 Subjective/Other Information CPN day 6. Pt stated his appetite is getting better. Pt drank 100% of his Ensure. Pt stated he has not started on his full liquids yet. Percent of energy/protein needs met: 100%/100% (CPN + 1 ensure) Burn Absent Trauma Absent GI Symptoms None Current % PO Negligible Minimum of two criteria Yes Body Fat Depletion Mild depletion (non-severe) Muscle Mass Mild Depletion (non-severe) Fluid Accumulation Mild (non-severe) Reduced Commercial Singer Strength Measurably Reduced (severe) #1 Nutrition Diagnosis Malnutrition Diagnosis Progress(for reassessment Continues documentation) Is patient on ventilator? No Is Patient Ambulatory and/or Out of Bed No REE-([facility]-confined to bed) 4544.179 Calculation Used for Recommendations Kcal/kg Additional Notes Protein: 36-92g (0.6-1.5g/kg) pt with CKD and malnutrition Fluid: 1 ml/kcal or per MD Nutrition Intervention Change Diet Order: continue CPN and full liquids Nutrition Support: CPN at 65 ml/hr: 22.4% dextrose, 90 mEq K, 22 mEq Mg, MVI; 2047 mOsmol Kcal 1,542 Protein (gm) 88 Carbohydrates (gm) 350 Fat (gm) 0 Fluid (mL) 1,560 Fiber (gm) 0 Add Supplement/Snack (indicate name/kcal Ensure Enlive strawberry/ /protein ) vanilla TID Provides kCal: 1,050 Provides Protein (gm) 60 Goal #1 CPN and full liquids to meet at least 80% of energy and protein needs Goal #2 Diet advancement when medically feasible Anticipated Discharge Needs: Unable to determine at this time Follow-Up By: 06/10/19 Additional Comments Labs in AM: BMP, Mg, Phos F/U for intakes, diet advancement
[2019-06-09] MEDS ORDERED: TOTAL PARENTERAL NUTRITION 1,560 ML IV SCH ×2 (20:00)
[2019-06-09] MEDS: HEPARIN 5,000 UNIT/1 ML VIAL SUB-Q SCH (21:07)
[2019-06-10] MEDS ORDERED: METOPROLOL TARTRATE 5 MG/5 ML INJ IV ONE (03:34)
[2019-06-10] MEDS: INSULIN LISPRO 100 UNIT/ML SUB-Q SCH ×5 (05:06→23:22)
[2019-06-10] MEDS: CEFEPIME/NS 2 GM/100 ML 2 GM/100 ML BAG IV SCH ×3 (05:16→17:19)
[2019-06-10] MEDS: HEPARIN 5,000 UNIT/1 ML VIAL SUB-Q SCH ×3 (05:17→21:13)
[2019-06-10] MEDS: FUROSEMIDE 40 MG/4 ML INJ IV SCH (05:17)
[2019-06-10] MEDS: metroNIDAZOLE/NS 500 MG/100 ML 500 MG/100 ML BAG IV SCH ×3 (05:17→21:18)
[2019-06-10] MEDS: HYDROmorphone 1 MG/1 ML INJ IV PRN ×3 (05:55→21:08)
[2019-06-10] MEDS: BUDESONIDE 0.5 MG/2 ML NEBU IH SCH ×2 (08:06→20:37)
[2019-06-10] MEDS: IPRATROPIUM/ALBUTEROL SULFATE 3 ML AMPUL.NEB IH SCH ×5 (08:06→23:14)
[2019-06-10] MEDS: ARFORMOTEROL 15 MCG/2 ML NEBU IH SCH ×2 (08:08→20:37)
--- NOTE | 2019-06-10 09:18 | Ultrasound Report ---
LIMITED RUQ ABDOMINAL ULTRASOUND INDICATION: Jaundice, extreme pain and nausea per the patient.. COMPARISON: Ultrasound abdomen limited 04/07/2019. CT abdomen pelvis without contrast 06/02/2019. FINDINGS: Pancreas: Only the pancreatic head is visualized which is unremarkable. The distal pancreas is obscur ed on ultrasound but was unremarkable on CT abdomen dated 06/02/2019.. Abdominal Aorta: No significant abnormality. IVC: No significant abnormality. Liver: The liver measures 13.2 cm in length. No significant abnormality. Normal hepatopedal blood fl ow in the main portal vein. Gallbladder: No significant abnormality. Bile ducts: No significant abnormality. Common bile duct measures 2.0 mm. Right kidney: 9.4 cm in length. Right renal echotexture is slightly increased consistent with nonspec ific renal parenchymal disease. No focal renal lesion or hydronephrosis. Free fluid: Small layering right pleural effusion. Additional Findings: None. IMPRESSION: Unremarkable liver and biliary system. Nonspecific renal parenchymal disease. Small right pleural effusion. Signer Name: Jackson Ventura Jr, MD Signed: 06/10/2019 9:13 AM Workstation Name: [id number]
[2019-06-10] MEDS: FLUCONAZOLE 400 MG 200 ML IV SCH (09:24)
[2019-06-10] MEDS: PANTOPRAZOLE 40 MG INJ IV SCH ×2 (09:24→21:10)
[2019-06-10 09:45] LABS: Hematocrit 22.8 % (35.5-45.6); Hemoglobin 7.3 gm/dl (11.8-15.2); Mean Corpuscular HGB Conc 32 % (32-34); Mean Corpuscular Volume 88 fl (84-94); Platelet Count 294 K/mm3 (140-440); Red Blood Count 2.61 M/mm3 (3.65-5.03)
[2019-06-10 09:46] LABS: Red Cell Distribution Width 29.2 % (13.2-15.2)
[2019-06-10] MEDS ORDERED: VANCOMYCIN/NS 1 GM/250 ML 1 GM/250 ML BAG IV SCH (10:00)
--- NOTE | 2019-06-10 10:11 | Progress Note ---
Assessment and Plan 1. Elevated T bilirubin - with mild ALP elevation and normal transaminases. - likely cholestatic due to underlying illnesses, with component due to TPN and possibly CHF. - await f/u labs. If stable or better, no further GI evaluation. Subjective Date of service: 06/10/19 Principal diagnosis: perforated gastric ulcer Interval history: Arnaud po well. Complains of some fluid leaking from drain site on abdomen. No other complaints. Objective - Constitutional Vitals: Vital Signs - 12hr 06/09/19 06/10/19 06/10/19 23:18 04:01 04:28 Temperature 98.2 F 98.0 F Pulse Rate 118 H 114 H 107 H Pulse Rate [ Anterior Bilateral Throughout] Respiratory 20 20 Rate Respiratory Rate [Anterior Bilateral Throughout] Blood Pressure 115/79 127/80 O2 Sat by Pulse 92 96 Oximetry 06/10/19 06/10/19 06/10/19 05:55 06:25 08:05 Temperature 98.1 F Pulse Rate 112 H Pulse Rate [ Anterior Bilateral Throughout] Respiratory 18 18 18 Rate Respiratory Rate [Anterior Bilateral Throughout] Blood Pressure 100/66 O2 Sat by Pulse 94 Oximetry 06/10/19 08:22 Temperature Pulse Rate Pulse Rate [ 110 H Anterior Bilateral Throughout] Respiratory Rate Respiratory 20 Rate [Anterior Bilateral Throughout] Blood Pressure O2 Sat by Pulse 96 Oximetry General appearance: Present: no acute distress - EENT Eyes: scleral icterus (Mild) ENT: hearing intact - Respiratory Respiratory effort: normal - Gastrointestinal General gastrointestinal: Present: soft, non-tender, other (Healing vertical midline incision. Drain site on R abdomen wall appears clean, nonerythematous, no drainage seen) - Labs CBC & Chem 7: 06/10/19 09:25 06/09/19 08:58 Labs: Abnormal lab results 06/08/19 06/09/19 06/09/19 Range/Units 11:18 11:53 17:30 WBC (4.5-11.0) K/mm3 RBC (3.65-5.03) M/mm3 Hgb (11.8-15.2) gm/dl Hct (35.5-45.6) % RDW (13.2-15.2) % POC Glucose 134 H 189 H 145 H (70-105) 06/10/19 06/10/19 06/10/19 Range/Units 05:00 08:36 09:25 WBC 18.9 H (4.5-11.0) K/mm3 RBC 2.61 L (3.65-5.03) M/mm3 Hgb 7.3 L (11.8-15.2) gm/dl Hct 22.8 L (35.5-45.6) % RDW 29.2 H (13.2-15.2) % POC Glucose 173 H 119 H (70-105) Medications & Allergies - Medications Allergies/Adverse Reactions: Allergies venom-honey bee [bee venom (honey bee)] Allergy (Verified 04/03/19 10:10) Hives morphine Adverse Reaction (Verified 04/03/19 10:10) Unknown Penicillins Adverse Reaction (Verified 04/08/19 08:57) Nausea Home Medications: Home Medications Medication Instructions Recorded Confirmed Last Taken Type traMADoL [Ultram 50 MG tab] 50 mg PO Q6HR PRN #12 tablet 03/25/19 06/03/19 03/30/19 Rx ALBUTEROL Inhaler (OR & NICU) 2 puff IH QID PRN #2 inha 04/08/19 06/03/19 Unknown Rx [ProAir HFA Inhaler] ALBUTEROL NEB's [Proventil 0.083% 2.5 mg IH QIDRT PRN #30 nebu 04/08/19 06/03/19 Unknown Rx NEBS] Aspirin EC [Halfprin EC] 81 mg PO DAILY #30 04/08/19 06/03/19 03/30/19 Rx Azithromycin [Zithromax TAB] 2 tab PO QDAY #2 tablet 04/08/19 06/03/19 Unknown Rx Budesonide/Formoterol Fumarate 2 puff IH BID #1 unit 04/08/19 06/03/19 Unknown Rx [Symbicort 160-4.5 Mcg Inhaler] Furosemide [Lasix TAB] 40 mg PO DAILY@0600 #30 tablet 04/08/19 06/03/19 Unknown Rx Spironolactone [Aldactone] 50 mg PO QDAY #30 tablet 04/08/19 06/03/19 Unknown Rx carvediloL [Coreg] 3.125 mg PO BID #60 tablet 04/08/19 06/03/19 Unknown Rx cefUROXime [Ceftin] 2 tab PO BID #8 tablet 04/08/19 06/03/19 Unknown Rx Active Medications: Generic Name Dose Route Start Last Admin Trade Name Freq PRN Reason Stop Dose Admin Albuterol 2.5 mg 06/02/19 11:28 Proventil IH Q4H PRN Shortness Of Breath Albuterol/Ipratropium 1 ampul 06/06/19 20:00 06/10/19 08:06 Duoneb *Not For Prn Use* IH 1 ampul Q6HRT ROSE Administration Arformoterol Tartrate 15 mcg 06/02/19 20:00 06/10/19 08:08 Brosol Mattsonu IH Not Given Q12HRT ROSE Budesonide 0.5 mg 06/02/19 20:00 06/10/19 08:06 Pulmicort IH 0.5 mg Q12HRT ROSE Administration Calcium Carbonate/Glycine 1,000 mg 06/09/19 14:04 Tums PO Q4H PRN Indigestion Furosemide 40 mg 06/03/19 13:00 06/10/19 05:17 Lasix IV 40 mg DAILY@0600 [facility] Administration Heparin Sodium (Porcine) 5,000 unit 06/09/19 22:00 06/10/19 05:17 Heparin SUB-Q 5,000 unit Q8HR ROSE Administration Hydromorphone HCl 0.25 mg 06/05/19 10:55 06/10/19 05:55 Dilaudid IV 0.25 mg Q3H PRN Administration Pain , Severe (7-10) Fluconazole 200 mls @ 100 mls/hr 06/04/19 13:00 06/10/19 09:24 Diflucan IV 100 mls/hr Q24HR ROSE Administration Protocol Chlorpromazine HCl 25 mg/ 51 mls @ 100 mls/hr 06/08/19 15:00 Sodium Chloride IV Q4H PRN Hiccups Amino Acids/Electrolytes/Dextrose 1,560 mls @ 65 mls/hr 06/09/19 20:00 21:09 Tpn Adult IV Not Given DAILY@1999 [facility] Protocol Amino Acids/Electrolytes/Dextrose 1,560 mls @ 65 mls/hr 06/09/19 20:00 06/09/19 21:08 Tpn Adult IV 65 mls/hr DAILY@1999 [facility] Administration Protocol Vancomycin HCl 1 gm in 250 mls @ 167.007 mls/hr 06/10/19 10:00 Vancomycin/Ns 1 Gm/250 Ml IV Q24HR ROSE Cefepime HCl 2 gm in 100 mls @ 200 mls/hr 06/09/19 14:00 06/10/19 05:16 Cefepime/Ns 2 Gm/100 Ml IV 200 mls/hr Q8HR ROSE Administration Protocol Metronidazole 500 mg in 100 mls @ 100 mls/hr 06/09/19 14:00 06/10/19 05:17 Flagyl 500 Mg/100 Ml IV 100 mls/hr Q8HR ROSE Administration Protocol Insulin Human Lispro 0 unit 06/08/19 06:00 06/10/19 05:56 Humalog SUB-Q 1 unit Q6HR ROSE Administration Protocol Ondansetron HCl 4 mg 06/08/19 14:30 06/08/19 19:24 Zofran IV 4 mg Q8H PRN Administration Nausea And Vomiting Pantoprazole Sodium 40 mg 06/04/19 10:00 06/10/19 09:24 Protonix IV 40 mg BID ROSE Administration Sodium Hypochlorite 1 applic 06/05/19 22:00 06/09/19 21:10 Dakin's Half Strength TP 1 applicatio BID ROSE Administration
[2019-06-10 10:24] LABS: BUN/Creatinine Ratio 48; Blood Urea Nitrogen 38 mg/dL (9-20); Calcium 7.8 mg/dL (8.4-10.2); Hemolysis Index 1
[2019-06-10 10:27] LABS: Albumin 1.5 g/dL (3.9-5); Bilirubin,Direct 3.7 mg/dL (0-0.2)
[2019-06-10] MEDS: SODIUM HYPOCHLORITE, DAKIN'S 1/2 STRENGTH (0.25%) 473 ML TOPICAL SOLN TP SCH ×3 (10:31→23:17)
--- NOTE | 2019-06-10 11:45 | Progress Note ---
Assessment and Plan 1. Incentive spirometry 2. Ambulate as tolerated 3. Wean FiO2 for sats >88% 4. Will continue to follow. Subjective Date of service: 06/10/19 Principal diagnosis: perforated gastric ulcer Interval history: No acute events from a pulmonary standpoint. Still on oxygen at 2 liters but good sats. Objective Vital Signs - 12hr 06/10/19 06/10/19 06/10/19 04:01 04:28 05:55 Temperature 98.0 F Pulse Rate 114 H 107 H Pulse Rate [ Anterior Bilateral Throughout] Respiratory 20 18 Rate Respiratory Rate [Anterior Bilateral Throughout] Blood Pressure 127/80 O2 Sat by Pulse 96 Oximetry 06/10/19 06/10/19 06/10/19 06:25 08:05 08:22 Temperature 98.1 F Pulse Rate 112 H Pulse Rate [ 110 H Anterior Bilateral Throughout] Respiratory 18 18 Rate Respiratory 20 Rate [Anterior Bilateral Throughout] Blood Pressure 100/66 O2 Sat by Pulse 94 96 Oximetry Constitutional: no acute distress, alert Eyes: non-icteric ENT: oropharynx moist Neck: supple Effort: normal Ascultation: Bilateral: clear, other (coarse BS bilaterally) Cardiovascular: regular rate and rhythm (no mrg) Gastrointestinal: absent bowel sounds, non-tender Integumentary: other (necrotic ulcers lower extremities) Extremities: no cyanosis, edema (1+ generalized edema) Neurologic: normal mental status, non-focal exam Psychiatric: mood appropriate, affect normal CBC and BMP: 06/10/19 09:25 06/10/19 09:25 ABG, PT/INR, D-dimer: ABG POC ABG pH 7.508 (7.35-7.45) H 06/07/19 09:44 POC ABG pCO2 41.5 (35-45) 06/07/19 09:44 POC ABG pO2 75 (80-105) L 06/07/19 09:44 POC ABG HCO3 33.0 (22-26 mml/L) 06/07/19 09:44 POC ABG Total CO2 34 (23-27mmol/L) 06/07/19 09:44 POC ABG O2 Sat 96 06/07/19 09:44 PT/INR, D-dimer PT 17.9 Sec. (12.2-14.9) H 06/02/19 07:15 INR 1.50 (0.87-1.13) H 06/02/19 07:15 Abnormal lab findings: Abnormal Labs 06/02/19 06/02/19 06/02/19 07:15 07:15 07:15 WBC 21.0 H RBC 5.17 H Hgb Hct MCH 27 L RDW 23.8 H Seg Neuts % (Manual) 97.0 H Lymphocytes % (Manual) 1.0 L Nucleated RBC % 3.0 H Seg Neutrophils # Man 20.4 H Lymphocytes # (Manual) 0.2 L PT 17.9 H INR 1.50 H POC ABG pH POC ABG pCO2 POC ABG pO2 VBG pH Sodium 130 L Chloride 97.1 L Carbon Dioxide 16 L BUN 47 H Creatinine Glucose 139 H POC Glucose Lactic Acid Calcium Phosphorus Magnesium Total Bilirubin 6.40 H Direct Bilirubin 4.5 H AST 50 H ALT Alkaline Phosphatase 179 H Ammonia Total Creatine Kinase 53 L CK-MB (CK-2) 5.1 H CK-MB (CK-2) Rel Index 9.6 H Troponin T NT-Pro-B Natriuret Pep > 01542 H Total Protein 5.8 L Albumin 2.1 L LDL Cholesterol Direct HDL Cholesterol Vancomycin Trough 06/02/19 06/02/19 06/02/19 07:15 07:15 07:15 WBC RBC Hgb Hct MCH RDW Seg Neuts % (Manual) Lymphocytes % (Manual) Nucleated RBC % Seg Neutrophils # Man Lymphocytes # (Manual) PT INR POC ABG pH POC ABG pCO2 POC ABG pO2 VBG pH 7.310 L Sodium Chloride Carbon Dioxide BUN Creatinine Glucose POC Glucose Lactic Acid 2.40 H* Calcium Phosphorus Magnesium Total Bilirubin Direct Bilirubin AST ALT Alkaline Phosphatase Ammonia 16.0 L Total Creatine Kinase CK-MB (CK-2) CK-MB (CK-2) Rel Index Troponin T NT-Pro-B Natriuret Pep Total Protein Albumin LDL Cholesterol Direct HDL Cholesterol Vancomycin Trough 06/02/19 06/02/19 06/02/19 07:15 15:33 15:53 WBC RBC Hgb Hct MCH RDW Seg Neuts % (Manual) Lymphocytes % (Manual) Nucleated RBC % Seg Neutrophils # Man Lymphocytes # (Manual) PT INR POC ABG pH 7.229 L POC ABG pCO2 49.5 H POC ABG pO2 VBG pH Sodium Chloride Carbon Dioxide BUN Creatinine Glucose POC Glucose 66 L Lactic Acid Calcium Phosphorus Magnesium Total Bilirubin Direct Bilirubin AST ALT Alkaline Phosphatase Ammonia Total Creatine Kinase CK-MB (CK-2) CK-MB (CK-2) Rel Index Troponin T 0.065 H NT-Pro-B Natriuret Pep Total Protein Albumin LDL Cholesterol Direct 31 L HDL Cholesterol 8 L Vancomycin Trough 06/02/19 06/02/19 06/03/19 16:40 17:10 04:06 WBC RBC Hgb Hct MCH RDW Seg Neuts % (Manual) Lymphocytes % (Manual) Nucleated RBC % Seg Neutrophils # Man Lymphocytes # (Manual) PT INR POC ABG pH 7.259 L POC ABG pCO2 33.9 L POC ABG pO2 221 H 146 H VBG pH Sodium Chloride Carbon Dioxide BUN Creatinine Glucose POC Glucose 151 H Lactic Acid Calcium Phosphorus Magnesium Total Bilirubin Direct Bilirubin AST ALT Alkaline Phosphatase Ammonia Total Creatine Kinase CK-MB (CK-2) CK-MB (CK-2) Rel Index Troponin T NT-Pro-B Natriuret Pep Total Protein Albumin LDL Cholesterol Direct HDL Cholesterol Vancomycin Trough 06/03/19 06/03/19 06/03/19 04:41 04:41 17:23 WBC 17.5 H RBC Hgb Hct MCH 27 L RDW 25.0 H Seg Neuts % (Manual) 96.0 H Lymphocytes % (Manual) 0 L Nucleated RBC % 1.0 H Seg Neutrophils # Man 16.8 H Lymphocytes # (Manual) 0.0 L PT INR POC ABG pH POC ABG pCO2 POC ABG pO2 VBG pH Sodium Chloride Carbon Dioxide 17 L BUN 42 H Creatinine Glucose 59 L POC Glucose 113 H Lactic Acid Calcium Phosphorus Magnesium Total Bilirubin 7.00 H Direct Bilirubin AST ALT Alkaline Phosphatase 153 H Ammonia Total Creatine Kinase CK-MB (CK-2) CK-MB (CK-2) Rel Index Troponin T NT-Pro-B Natriuret Pep Total Protein 5.9 L Albumin 1.7 L LDL Cholesterol Direct HDL Cholesterol Vancomycin Trough 06/03/19 06/04/19 06/04/19 23:37 05:10 05:10 WBC 16.7 H RBC Hgb Hct MCH 27 L RDW 24.5 H Seg Neuts % (Manual) 94.0 H Lymphocytes % (Manual) 3.0 L Nucleated RBC % Seg Neutrophils # Man 15.7 H Lymphocytes # (Manual) 0.5 L PT INR POC ABG pH POC ABG pCO2 POC ABG pO2 VBG pH Sodium Chloride Carbon Dioxide BUN 39 H Creatinine Glucose 136 H POC Glucose 126 H Lactic Acid Calcium 8.3 L Phosphorus Magnesium 1.30 L Total Bilirubin 7.70 H Direct Bilirubin AST ALT Alkaline Phosphatase 140 H Ammonia Total Creatine Kinase CK-MB (CK-2) CK-MB (CK-2) Rel Index Troponin T NT-Pro-B Natriuret Pep Total Protein 5.6 L Albumin 1.7 L LDL Cholesterol Direct HDL Cholesterol Vancomycin Trough 06/04/19 06/04/19 06/04/19 05:44 13:50 18:05 WBC RBC Hgb Hct MCH RDW Seg Neuts % (Manual) Lymphocytes % (Manual) Nucleated RBC % Seg Neutrophils # Man Lymphocytes # (Manual) PT INR POC ABG pH POC ABG pCO2 POC ABG pO2 VBG pH Sodium Chloride Carbon Dioxide BUN Creatinine Glucose POC Glucose 124 H 137 H 120 H Lactic Acid Calcium Phosphorus Magnesium Total Bilirubin Direct Bilirubin AST ALT Alkaline Phosphatase Ammonia Total Creatine Kinase CK-MB (CK-2) CK-MB (CK-2) Rel Index Troponin T NT-Pro-B Natriuret Pep Total Protein Albumin LDL Cholesterol Direct HDL Cholesterol Vancomycin Trough 06/05/19 06/05/19 06/05/19 00:58 04:20 04:20 WBC 15.0 H RBC Hgb Hct MCH 27 L RDW 25.0 H Seg Neuts % (Manual) Lymphocytes % (Manual) Nucleated RBC % Seg Neutrophils # Man Lymphocytes # (Manual) PT INR POC ABG pH POC ABG pCO2 POC ABG pO2 VBG pH Sodium Chloride Carbon Dioxide BUN 52 H Creatinine Glucose 137 H POC Glucose 114 H Lactic Acid Calcium 7.8 L Phosphorus Magnesium Total Bilirubin Direct Bilirubin AST ALT Alkaline Phosphatase Ammonia Total Creatine Kinase CK-MB (CK-2) CK-MB (CK-2) Rel Index Troponin T NT-Pro-B Natriuret Pep Total Protein Albumin LDL Cholesterol Direct HDL Cholesterol Vancomycin Trough 06/05/19 06/05/19 06/05/19 05:39 05:45 09:45 WBC RBC Hgb Hct MCH RDW Seg Neuts % (Manual) Lymphocytes % (Manual) Nucleated RBC % Seg Neutrophils # Man Lymphocytes # (Manual) PT INR POC ABG pH POC ABG pCO2 POC ABG pO2 108 H VBG pH Sodium Chloride Carbon Dioxide BUN Creatinine Glucose POC Glucose 111 H Lactic Acid Calcium Phosphorus Magnesium Total Bilirubin Direct Bilirubin AST ALT Alkaline Phosphatase Ammonia Total Creatine Kinase CK-MB (CK-2) CK-MB (CK-2) Rel Index Troponin T NT-Pro-B Natriuret Pep Total Protein Albumin LDL Cholesterol Direct HDL Cholesterol Vancomycin Trough 20.1 H 06/05/19 06/05/19 06/06/19 13:25 18:27 00:01 WBC RBC Hgb Hct MCH RDW Seg Neuts % (Manual) Lymphocytes % (Manual) Nucleated RBC % Seg Neutrophils # Man Lymphocytes # (Manual) PT INR POC ABG pH POC ABG pCO2 POC ABG pO2 VBG pH Sodium Chloride Carbon Dioxide BUN Creatinine Glucose POC Glucose 152 H 194 H 153 H Lactic Acid Calcium Phosphorus Magnesium Total Bilirubin Direct Bilirubin AST ALT Alkaline Phosphatase Ammonia Total Creatine Kinase CK-MB (CK-2) CK-MB (CK-2) Rel Index Troponin T NT-Pro-B Natriuret Pep Total Protein Albumin LDL Cholesterol Direct HDL Cholesterol Vancomycin Trough 06/06/19 06/06/19 06/06/19 04:20 05:45 12:32 WBC RBC Hgb Hct MCH RDW Seg Neuts % (Manual) Lymphocytes % (Manual) Nucleated RBC % Seg Neutrophils # Man Lymphocytes # (Manual) PT INR POC ABG pH POC ABG pCO2 POC ABG pO2 VBG pH Sodium Chloride Carbon Dioxide BUN 62 H Creatinine Glucose 141 H POC Glucose 161 H 131 H Lactic Acid Calcium 7.7 L Phosphorus 2.40 L Magnesium Total Bilirubin Direct Bilirubin AST ALT Alkaline Phosphatase Ammonia Total Creatine Kinase CK-MB (CK-2) CK-MB (CK-2) Rel Index Troponin T NT-Pro-B Natriuret Pep Total Protein Albumin LDL Cholesterol Direct HDL Cholesterol Vancomycin Trough 06/07/19 06/07/19 06/07/19 02:07 05:36 05:36 WBC 25.3 H RBC Hgb 10.8 L Hct 33.7 L MCH 27 L RDW 26.7 H Seg Neuts % (Manual) Lymphocytes % (Manual) Nucleated RBC % Seg Neutrophils # Man Lymphocytes # (Manual) PT INR POC ABG pH POC ABG pCO2 POC ABG pO2 VBG pH Sodium 135 L Chloride 93.6 L Carbon Dioxide BUN 58 H Creatinine Glucose 131 H POC Glucose 165 H Lactic Acid Calcium 8.0 L Phosphorus Magnesium Total Bilirubin Direct Bilirubin AST ALT Alkaline Phosphatase Ammonia Total Creatine Kinase CK-MB (CK-2) CK-MB (CK-2) Rel Index Troponin T NT-Pro-B Natriuret Pep Total Protein Albumin LDL Cholesterol Direct HDL Cholesterol Vancomycin Trough 06/07/19 06/07/19 06/07/19 09:44 18:05 23:51 WBC RBC Hgb Hct MCH RDW Seg Neuts % (Manual) Lymphocytes % (Manual) Nucleated RBC % Seg Neutrophils # Man Lymphocytes # (Manual) PT INR POC ABG pH 7.508 H POC ABG pCO2 POC ABG pO2 75 L VBG pH Sodium Chloride Carbon Dioxide BUN Creatinine Glucose POC Glucose 137 H 180 H Lactic Acid Calcium Phosphorus Magnesium Total Bilirubin Direct Bilirubin AST ALT Alkaline Phosphatase Ammonia Total Creatine Kinase CK-MB (CK-2) CK-MB (CK-2) Rel Index Troponin T NT-Pro-B Natriuret Pep Total Protein Albumin LDL Cholesterol Direct HDL Cholesterol Vancomycin Trough 06/08/19 06/08/19 06/08/19 05:07 05:07 06:26 WBC 25.1 H RBC 3.21 L Hgb 8.8 L Hct 27.3 L D MCH RDW 27.7 H Seg Neuts % (Manual) Lymphocytes % (Manual) Nucleated RBC % Seg Neutrophils # Man Lymphocytes # (Manual) PT INR POC ABG pH POC ABG pCO2 POC ABG pO2 VBG pH Sodium 134 L Chloride 97.2 L Carbon Dioxide BUN 49 H Creatinine 0.7 L Glucose 144 H POC Glucose 149 H Lactic Acid Calcium 7.7 L Phosphorus Magnesium Total Bilirubin Direct Bilirubin AST ALT Alkaline Phosphatase Ammonia Total Creatine Kinase CK-MB (CK-2) CK-MB (CK-2) Rel Index Troponin T NT-Pro-B Natriuret Pep Total Protein Albumin LDL Cholesterol Direct HDL Cholesterol Vancomycin Trough 06/08/19 06/08/19 06/09/19 11:18 17:43 00:04 WBC RBC Hgb Hct MCH RDW Seg Neuts % (Manual) Lymphocytes % (Manual) Nucleated RBC % Seg Neutrophils # Man Lymphocytes # (Manual) PT INR POC ABG pH POC ABG pCO2 POC ABG pO2 VBG pH Sodium Chloride Carbon Dioxide BUN Creatinine Glucose POC Glucose 134 H 153 H 161 H Lactic Acid Calcium Phosphorus Magnesium Total Bilirubin Direct Bilirubin AST ALT Alkaline Phosphatase Ammonia Total Creatine Kinase CK-MB (CK-2) CK-MB (CK-2) Rel Index Troponin T NT-Pro-B Natriuret Pep Total Protein Albumin LDL Cholesterol Direct HDL Cholesterol Vancomycin Trough 06/09/19 06/09/19 06/09/19 05:51 08:58 11:53 WBC RBC Hgb Hct MCH RDW Seg Neuts % (Manual) Lymphocytes % (Manual) Nucleated RBC % Seg Neutrophils # Man Lymphocytes # (Manual) PT INR POC ABG pH POC ABG pCO2 POC ABG pO2 VBG pH Sodium Chloride 97.1 L Carbon Dioxide BUN 40 H Creatinine 0.6 L Glucose 161 H POC Glucose 183 H 189 H Lactic Acid Calcium 7.9 L Phosphorus Magnesium Total Bilirubin Direct Bilirubin AST ALT Alkaline Phosphatase Ammonia Total Creatine Kinase CK-MB (CK-2) CK-MB (CK-2) Rel Index Troponin T NT-Pro-B Natriuret Pep Total Protein Albumin LDL Cholesterol Direct HDL Cholesterol Vancomycin Trough 06/09/19 06/10/19 06/10/19 17:30 05:00 08:36 WBC RBC Hgb Hct MCH RDW Seg Neuts % (Manual) Lymphocytes % (Manual) Nucleated RBC % Seg Neutrophils # Man Lymphocytes # (Manual) PT INR POC ABG pH POC ABG pCO2 POC ABG pO2 VBG pH Sodium Chloride Carbon Dioxide BUN Creatinine Glucose POC Glucose 145 H 173 H 119 H Lactic Acid Calcium Phosphorus Magnesium Total Bilirubin Direct Bilirubin AST ALT Alkaline Phosphatase Ammonia Total Creatine Kinase CK-MB (CK-2) CK-MB (CK-2) Rel Index Troponin T NT-Pro-B Natriuret Pep Total Protein Albumin LDL Cholesterol Direct HDL Cholesterol Vancomycin Trough 06/10/19 06/10/19 06/10/19 09:25 09:25 09:25 WBC 18.9 H RBC 2.61 L Hgb 7.3 L Hct 22.8 L MCH RDW 29.2 H Seg Neuts % (Manual) Lymphocytes % (Manual) Nucleated RBC % Seg Neutrophils # Man Lymphocytes # (Manual) PT INR POC ABG pH POC ABG pCO2 POC ABG pO2 VBG pH Sodium Chloride 95.5 L Carbon Dioxide 31 H BUN 38 H Creatinine Glucose 115 H POC Glucose Lactic Acid Calcium 7.8 L Phosphorus Magnesium Total Bilirubin 4.80 H Direct Bilirubin 3.7 H AST 127 H ALT 93 H Alkaline Phosphatase 180 H Ammonia Total Creatine Kinase CK-MB (CK-2) CK-MB (CK-2) Rel Index Troponin T NT-Pro-B Natriuret Pep Total Protein 5.3 L Albumin 1.5 L LDL Cholesterol Direct HDL Cholesterol Vancomycin Trough 06/10/19 11:23 WBC RBC Hgb Hct MCH RDW Seg Neuts % (Manual) Lymphocytes % (Manual) Nucleated RBC % Seg Neutrophils # Man Lymphocytes # (Manual) PT INR POC ABG pH POC ABG pCO2 POC ABG pO2 VBG pH Sodium Chloride Carbon Dioxide BUN Creatinine Glucose POC Glucose 175 H Lactic Acid Calcium Phosphorus Magnesium Total Bilirubin Direct Bilirubin AST ALT Alkaline Phosphatase Ammonia Total Creatine Kinase CK-MB (CK-2) CK-MB (CK-2) Rel Index Troponin T NT-Pro-B Natriuret Pep Total Protein Albumin LDL Cholesterol Direct HDL Cholesterol Vancomycin Trough
--- NOTE | 2019-06-10 12:59 | Progress Note ---
Assessment and Plan Currently stable cardiac status. Cont present cardiac management. He is noted to have bouts of NSVT on telemetry. He has known NICMP and is followed in our office by Dr. Alatorre. He has chronically declined LifeVest and/or AICD. Monitor electrolyses and cont to observe on telemetry. The patient has been seen in conjunction with Dr. Melia Baird who agrees with the assessment and plan of care. - Patient Problems (1) Pneumoperitoneum Current Visit: Yes Status: Acute (2) Sepsis Current Visit: Yes Status: Acute Qualifiers: Sepsis type: sepsis due to unspecified organism Sepsis acute organ dysfunction status: unspecified Qualified Code(s): A41.9 - Sepsis, unspecified organism (3) Chronic HFrEF (heart failure with reduced ejection fraction) Current Visit: Yes Status: Chronic (4) Nonischemic cardiomyopathy Current Visit: Yes Status: Chronic (5) Sinus node dysfunction Current Visit: Yes Status: Chronic (6) NSVT (nonsustained ventricular tachycardia) Current Visit: Yes Status: Chronic (7) HTN (hypertension) Current Visit: Yes Status: Chronic Qualifiers: Hypertension type: essential hypertension Qualified Code(s): I10 - Essential (primary) hypertension (8) Pulmonary hypertension Current Visit: Yes Status: Chronic (9) PAD (peripheral artery disease) Current Visit: Yes Status: Chronic (10) Anemia Current Visit: Yes Status: Acute Subjective Date of service: 06/10/19 Principal diagnosis: perforated gastric ulcer Interval history: pt resting in bed, alert and oriented, no current cardiac complaints. in ST with HR 110s, no acute events noted overnight. no family at bedside. Objective Last Vital Signs Temp 98.3 F 06/10/19 11:48 Pulse 107 H 06/10/19 11:48 Resp 18 06/10/19 11:48 BP 107/67 06/10/19 11:48 Pulse Ox 97 06/10/19 11:48 - Physical Examination General: No Apparent Distress HEENT: Positive: EOMI, Normocephaly, Mucus Membranes Moist Neck: Positive: neck supple, trachea midline, Carotid Upstroke (full) Cardiac: Positive: Regular Rhythm, S1/S2 Lungs: Positive: Decreased Breath Sounds Neuro: Positive: Grossly Intact Abdomen: Positive: Soft Skin: Positive: Other (abdominal surgical wounds, multiple wounds on both lower extremities with areas of ischemic ulceration.) Musculoskeletal: Normal Range of Motion Extremities: Present: lower extr. pulses (LLE difficult to palpate d/t wound dressing and ischemic ulceration), Other (LLE - pulse difficult to palpate d/t wounds ) - Labs and Meds Cardiac Enzymes 06/10/19 Range/Units 09:25 AST 127 H (5-40) units/L CBC 06/10/19 Range/Units 09:25 WBC 18.9 H (4.5-11.0) K/mm3 RBC 2.61 L (3.65-5.03) M/mm3 Hgb 7.3 L (11.8-15.2) gm/dl Hct 22.8 L (35.5-45.6) % Plt Count 294 (140-440) K/mm3 Comprehensive Metabolic Panel 06/10/19 06/10/19 Range/Units 09:25 09:25 Sodium 139 (137-145) mmol/L Potassium 4.5 (3.6-5.0) mmol/L Chloride 95.5 L (98-107) mmol/L Carbon Dioxide 31 H (22-30) mmol/L BUN 38 H (9-20) mg/dL Creatinine 0.8 (0.8-1.5) mg/dL Glucose 115 H (75-100) mg/dL Calcium 7.8 L (8.4-10.2) mg/dL Direct Bilirubin 3.7 H (0-0.2) mg/dL Indirect Bilirubin 1.1 mg/dL AST 127 H (5-40) units/L ALT 93 H (7-56) units/L Alkaline Phosphatase 180 H (35-129) units/L Total Protein 5.3 L (6.3-8.2) g/dL Albumin 1.5 L (3.9-5) g/dL - Imaging and Cardiology EKG: image reviewed Echo: report reviewed (02/28/19 showed EF of 10-15%, dilation of all chambers, moderate AR, moderate to severe TR and RV hypokinesis. ) Cardiac cath: report reviewed (04/2017 showed patent coronaries, EF 10-15%. ) - Telemetry EKG Rhythm: Sinus Tachycardia - EKG Sinus rhythms and dysrhythmias: sinus rhythm Chamber hypertrophy or enlargement: left ventricular hypertro Repolarization changes or abnormalities: repolarization abn secondary to ventricular hypertrophy Myocardial infarction: septal [place] (old age or ind
[2019-06-10] MEDS ORDERED: oxyCODONE /ACETAMINOPHEN 5-325MG TAB PO PRN (13:04)
--- NOTE | 2019-06-10 13:16 | Progress Note ---
Assessment and Plan 63 yo M s/p exploratory laparotomy, omental patch of perforated gastric ulcer POD 8 1. sepsis 2. perforated gastric ulcer 3. severe malnutrition 4. b/l pleural effusions 5. bedbound 6. infected b/l LE wounds with likely chronic limb ischemia 7. cardiomyopathy 8. CHF Arterial duplex - no arterial disease Plan: 1. prn PO pain control - oxycodone 2. DVT ppx 3. Protonix IV BID 4. no NSAIDs 5. adv to soft diet in am tomorrow with protein supplements. Will obtain PAL with am labs. continue TPN - will consider discontinuing tomorrow in light of elevated LFTs, Bilirubin if patient tolerating diet. 6. IS/pulm toilet 7. OOB with PT 8. IV abx per ID 9. Keep TANESHA site with dressing. Drainage described as serous. 10. dc garcia Anticipate surgical clearance for discharge in next 24 hours. Plan is for patient to go to acute rehab on dc. Discussed with Dr. Barakat and patient's RN Yun. Please call with questions. Subjective Date of service: 06/10/19 Narrative: Pt seen and examined. No acute complaints. No overnight events. No f/c. Tolerating full liquid diet. +BMs Objective Vital Signs - 12hr 06/10/19 06/10/19 06/10/19 04:01 04:28 05:55 Temperature 98.0 F Pulse Rate 114 H 107 H Pulse Rate [ Anterior Bilateral Throughout] Respiratory 20 18 Rate Respiratory Rate [Anterior Bilateral Throughout] Blood Pressure 127/80 O2 Sat by Pulse 96 Oximetry 06/10/19 06/10/19 06/10/19 06:25 08:05 08:22 Temperature 98.1 F Pulse Rate 112 H Pulse Rate [ 110 H Anterior Bilateral Throughout] Respiratory 18 18 Rate Respiratory 20 Rate [Anterior Bilateral Throughout] Blood Pressure 100/66 O2 Sat by Pulse 94 96 Oximetry 06/10/19 11:48 Temperature 98.3 F Pulse Rate 107 H Pulse Rate [ Anterior Bilateral Throughout] Respiratory 18 Rate Respiratory Rate [Anterior Bilateral Throughout] Blood Pressure 107/67 O2 Sat by Pulse 97 Oximetry - General physical appearance Narrative Exam: Gen: AAOx3. NAD CV: s1, S2+ Resp: even and unlabored Abd: soft, NT, ND. Incision c/d/i with tessy in place. R sided TANESHA site healing. Covered with dry gauze and tape. Ext: no c/c/e - Labs 06/10/19 09:25 06/10/19 09:25 Diabetes panel 06/10/19 06/10/19 Range/Units 09:25 09:25 Sodium 139 (137-145) mmol/L Potassium 4.5 (3.6-5.0) mmol/L Chloride 95.5 L (98-107) mmol/L Carbon Dioxide 31 H (22-30) mmol/L BUN 38 H (9-20) mg/dL Creatinine 0.8 (0.8-1.5) mg/dL Glucose 115 H (75-100) mg/dL Calcium 7.8 L (8.4-10.2) mg/dL AST 127 H (5-40) units/L ALT 93 H (7-56) units/L Alkaline Phosphatase 180 H (35-129) units/L Total Protein 5.3 L (6.3-8.2) g/dL Albumin 1.5 L (3.9-5) g/dL Calcium panel 06/10/19 06/10/19 Range/Units 09:25 09:25 Calcium 7.8 L (8.4-10.2) mg/dL Phosphorus 3.50 (2.5-4.5) mg/dL Albumin 1.5 L (3.9-5) g/dL Pituitary panel 06/10/19 Range/Units 09:25 Sodium 139 (137-145) mmol/L Potassium 4.5 (3.6-5.0) mmol/L Chloride 95.5 L (98-107) mmol/L Carbon Dioxide 31 H (22-30) mmol/L BUN 38 H (9-20) mg/dL Creatinine 0.8 (0.8-1.5) mg/dL Glucose 115 H (75-100) mg/dL Calcium 7.8 L (8.4-10.2) mg/dL Adrenal panel 06/10/19 06/10/19 Range/Units 09:25 09:25 Sodium 139 (137-145) mmol/L Potassium 4.5 (3.6-5.0) mmol/L Chloride 95.5 L (98-107) mmol/L Carbon Dioxide 31 H (22-30) mmol/L BUN 38 H (9-20) mg/dL Creatinine 0.8 (0.8-1.5) mg/dL Glucose 115 H (75-100) mg/dL Calcium 7.8 L (8.4-10.2) mg/dL Total Bilirubin 4.80 H (0.1-1.2) mg/dL AST 127 H (5-40) units/L ALT 93 H (7-56) units/L Alkaline Phosphatase 180 H (35-129) units/L Total Protein 5.3 L (6.3-8.2) g/dL Albumin 1.5 L (3.9-5) g/dL
--- NOTE | 2019-06-10 14:06 | Progress Note ---
Assessment and Plan Cultures: Blood culture 06/02/19 no growth to date Urine culture 06/02/19 no growth to date Surgical culture 06/02/19 Suni albicans Wound culture right foot 06/02/2019 - PsA, Morganella Surgical foot culture Left 06/05/2019 - P mirabilis Surgical foot culture right 06/05/2019 - P mirabilis Assessment: 63 yo M with severe non ischemic cardiomyopathy and heart failure, chronic bilateral wounds admitted with small perforated gastric ulcer. 1. Acute sepsis: POA. Likely secondary to perforated gastric ulcer and infected chronic wounds on LE. 2. Infected bilateral infected wounds - chronic with worsening. He has significant CHF and likely perfusion compromise. Concern for the viability of these limbs. Surgery has also evaluated. 3. Perforated gastric ulcer: s/p surgery: exploratory laparotomy, omental patch of perforated gastric ulcer. 4. Elevated bilirubin: GI following. Cholestasis, thought to be related to congestive heart failure and TPN. Recs: - continue cefepime, fluconazole and metronidazole while inpatient - per discussion with Dr. Barakat, patient has refused amputation. His LE wounds are not curable. This was explained to him at length by Dr. Dos Santos. - when ready for discharge, would do a short course of PO abx: Levofloxacin - continue wound care D/W Dr. Barakat. Diamond Cohen MD, [facility] ([facility]) C: [phone] O: [phone] F: [phone] Subjective Date of service: 06/10/19 Principal diagnosis: perforated gastric ulcer Interval history: No fever. Complains of fluid leaking from R lateral abdominal wall. No other issues. Objective - Exam Narrative Exam: Physical Exam: Constitutional: Alert, cooperative. No acute distress Head, Ears, Nose: Normocephalic, atraumatic. External ears, nose normal Eyes: Conjunctivae/corneas clear. icterus +. No ptosis. Neck: Supple, no meningeal signs Oral: dentition poor, no thrush Cardiovascular: S1, S2 normal. Respiratory: Good air entry, clear to auscultation bilaterally GI: Soft, non-tender; bowel sounds normal. Midline incision healing well. R lateral wall with dressing Musculoskeletal: b/l LE with extensive wounds and drainage Skin: No rash or abscess Hem/Lymphatic: No palpable cervical or supraclavicular nodes. No lymphangitis Psych: Mood ok. Affect flat Neurological: Awake, alert, oriented. - Constitutional Vitals: Vital Signs Temp Pulse Resp BP Pulse Ox 98.3 F 107 H 18 107/67 97 06/10/19 11:48 06/10/19 11:48 06/10/19 11:48 06/10/19 11:48 06/10/19 11:48 Temperature -Last 24 Hours Temperature 98.3 F Temperature 98.1 F Temperature 98.0 F Temperature 98.2 F Temperature 98.5 F Temperature 98.0 F - Labs CBC & Chem 7: 06/10/19 09:25 06/10/19 09:25 Labs: Abnormal lab results 06/08/19 06/09/19 06/10/19 Range/Units 11:18 17:30 05:00 WBC (4.5-11.0) K/mm3 RBC (3.65-5.03) M/mm3 Hgb (11.8-15.2) gm/dl Hct (35.5-45.6) % RDW (13.2-15.2) % Chloride (98-107) mmol/L Carbon Dioxide (22-30) mmol/L BUN (9-20) mg/dL Glucose (75-100) mg/dL POC Glucose 134 H 145 H 173 H (70-105) Calcium (8.4-10.2) mg/dL Total Bilirubin (0.1-1.2) mg/dL Direct Bilirubin (0-0.2) mg/dL AST (5-40) units/L ALT (7-56) units/L Alkaline Phosphatase (35-129) units/L Total Protein (6.3-8.2) g/dL Albumin (3.9-5) g/dL 06/10/19 06/10/19 06/10/19 Range/Units 08:36 09:25 09:25 WBC (4.5-11.0) K/mm3 RBC (3.65-5.03) M/mm3 Hgb (11.8-15.2) gm/dl Hct (35.5-45.6) % RDW (13.2-15.2) % Chloride 95.5 L (98-107) mmol/L Carbon Dioxide 31 H (22-30) mmol/L BUN 38 H (9-20) mg/dL Glucose 115 H (75-100) mg/dL POC Glucose 119 H (70-105) Calcium 7.8 L (8.4-10.2) mg/dL Total Bilirubin 4.80 H (0.1-1.2) mg/dL Direct Bilirubin 3.7 H (0-0.2) mg/dL AST 127 H (5-40) units/L ALT 93 H (7-56) units/L Alkaline Phosphatase 180 H (35-129) units/L Total Protein 5.3 L (6.3-8.2) g/dL Albumin 1.5 L (3.9-5) g/dL 06/10/19 06/10/19 Range/Units 09:25 11:23 WBC 18.9 H (4.5-11.0) K/mm3 RBC 2.61 L (3.65-5.03) M/mm3 Hgb 7.3 L (11.8-15.2) gm/dl Hct 22.8 L (35.5-45.6) % RDW 29.2 H (13.2-15.2) % Chloride (98-107) mmol/L Carbon Dioxide (22-30) mmol/L BUN (9-20) mg/dL Glucose (75-100) mg/dL POC Glucose 175 H (70-105) Calcium (8.4-10.2) mg/dL Total Bilirubin (0.1-1.2) mg/dL Direct Bilirubin (0-0.2) mg/dL AST (5-40) units/L ALT (7-56) units/L Alkaline Phosphatase (35-129) units/L Total Protein (6.3-8.2) g/dL Albumin (3.9-5) g/dL
--- NOTE | 2019-06-10 15:32 | Progress Note ---
Assessment and Plan Perforated gastric ulcer. - - General surgery consulted for perforated bowel - s/p exploratory laparotomy, omental patch of perforated gastric ulcer by Dr. Sims, Surgeon, POD 2 - cont empiric abx,cautious IV fluid, may need to start on TPN -Started on full liquid diet Sepsis with bilateral lower extremity cellulitis/infected ulcer and perforated bowel - Continue empiric antibiotics, obtain blood cultures, wound culture - Wound care consult placed, and following -ID Physician following bilateral lower extremity cellulitis/infected ulcer - from PVD - s/p bilateral I and D done 06/[address] Oakes -Amputation recommended but he has not consented Moderate b/l pleural effusion CHFrEF 10-15% - Cardiology consulted - monitor ins/os, daily lasix iv to prevent fluid overload Chronic systolic CHF cardiology following Severe protein calorie malnutrition - nutrition consult, may need TPN CKD stage III, monitor renal function, avoid nephrotoxin - renal function stable Jaundice Elevated bilirubin, Total Bili of 7.7 Consult GI. I discussed with Dr. Scott Severe metabolic acidosis likely due to perforated bowel - bicarbonate as needed Acute respiratory failure following surgery - CC following, cont nebs, -Extubated 06/05 - Provide GI and DVT prophylaxis Discussed with Dr. Issa. OK to give Heparin subcut Disposition: PT recommended LTAC brief History: Patient is a 63 yo man with a history of NICMP, chronic HFrEF 10-15%, NSVT declines LifeVest/AICD, CKD 3, HTN and mod to severe TR, b/l LE wounds, bedbound who presents to [facility] ED with c/o abdominal pain for 3 days. He had multiple bilateral lower extremity wound and stage I to 2 lower extremity ulcer covered with pus. CT abdomen and pelvis suggestive of pneumoperitoneum. General surgery was consulted and patient was taken for OR for exploratory laparotomy by general surgeon. He also received empiric antibiotics. He was intubated per-operatively,extubated 06/05, transferred to Surgical floor. He is improving , now on full liquid diet. Hospitalist Physical Gen: Not in acute distress, lying in bed, Jaundiced HEENT: Normocephalic, atraumatic Neck: supple, no JVD Heart: S1 and S2 reg, no murmurs, rubs or gallop Lungs: Clear to auscultation bilaterally, Abd: soft, NT, dry wound dry, small non healing abdominal wall wound where surgical drain was removed, Ext: Dressing over wounds both legs, Black toes both feet, swelling both upper and lower ext, Neuro: awake,alert,oriented, moves all ext Subjective Date of service: 06/10/19 Principal diagnosis: perforated gastric ulcer Interval history: Patient seen and examined discussed with Dr Sims. RN at bedside patient on TPN, started on full liquid diet Objective - Constitutional Vitals: Vital Signs - 12hr 06/10/19 06/10/19 06/10/19 04:01 04:28 05:55 Temperature 98.0 F Pulse Rate 114 H 107 H Pulse Rate [ Anterior Bilateral Throughout] Respiratory 20 18 Rate Respiratory Rate [Anterior Bilateral Throughout] Blood Pressure 127/80 O2 Sat by Pulse 96 Oximetry 06/10/19 06/10/19 06/10/19 06:25 08:05 08:22 Temperature 98.1 F Pulse Rate 112 H Pulse Rate [ 110 H Anterior Bilateral Throughout] Respiratory 18 18 Rate Respiratory 20 Rate [Anterior Bilateral Throughout] Blood Pressure 100/66 O2 Sat by Pulse 94 96 Oximetry 06/10/19 06/10/19 11:48 14:03 Temperature 98.3 F Pulse Rate 107 H Pulse Rate [ 118 H Anterior Bilateral Throughout] Respiratory 18 Rate Respiratory 20 Rate [Anterior Bilateral Throughout] Blood Pressure 107/67 O2 Sat by Pulse 97 Oximetry - Labs CBC & Chem 7: 06/10/19 09:25 06/12/19 05:27 Labs: Abnormal lab results 06/08/19 06/09/19 06/10/19 Range/Units 11:18 17:30 05:00 WBC (4.5-11.0) K/mm3 RBC (3.65-5.03) M/mm3 Hgb (11.8-15.2) gm/dl Hct (35.5-45.6) % RDW (13.2-15.2) % Chloride (98-107) mmol/L Carbon Dioxide (22-30) mmol/L BUN (9-20) mg/dL Glucose (75-100) mg/dL POC Glucose 134 H 145 H 173 H (70-105) Calcium (8.4-10.2) mg/dL Total Bilirubin (0.1-1.2) mg/dL Direct Bilirubin (0-0.2) mg/dL AST (5-40) units/L ALT (7-56) units/L Alkaline Phosphatase (35-129) units/L Total Protein (6.3-8.2) g/dL Albumin (3.9-5) g/dL 06/10/19 06/10/19 06/10/19 Range/Units 08:36 09:25 09:25 WBC (4.5-11.0) K/mm3 RBC (3.65-5.03) M/mm3 Hgb (11.8-15.2) gm/dl Hct (35.5-45.6) % RDW (13.2-15.2) % Chloride 95.5 L (98-107) mmol/L Carbon Dioxide 31 H (22-30) mmol/L BUN 38 H (9-20) mg/dL Glucose 115 H (75-100) mg/dL POC Glucose 119 H (70-105) Calcium 7.8 L (8.4-10.2) mg/dL Total Bilirubin 4.80 H (0.1-1.2) mg/dL Direct Bilirubin 3.7 H (0-0.2) mg/dL AST 127 H (5-40) units/L ALT 93 H (7-56) units/L Alkaline Phosphatase 180 H (35-129) units/L Total Protein 5.3 L (6.3-8.2) g/dL Albumin 1.5 L (3.9-5) g/dL 06/10/19 06/10/19 Range/Units 09:25 11:23 WBC 18.9 H (4.5-11.0) K/mm3 RBC 2.61 L (3.65-5.03) M/mm3 Hgb 7.3 L (11.8-15.2) gm/dl Hct 22.8 L (35.5-45.6) % RDW 29.2 H (13.2-15.2) % Chloride (98-107) mmol/L Carbon Dioxide (22-30) mmol/L BUN (9-20) mg/dL Glucose (75-100) mg/dL POC Glucose 175 H (70-105) Calcium (8.4-10.2) mg/dL Total Bilirubin (0.1-1.2) mg/dL Direct Bilirubin (0-0.2) mg/dL AST (5-40) units/L ALT (7-56) units/L Alkaline Phosphatase (35-129) units/L Total Protein (6.3-8.2) g/dL Albumin (3.9-5) g/dL
[2019-06-10] MEDS: CALCIUM CARBONATE 500 MG TAB CHEW PO PRN (18:19)
[2019-06-10] MEDS ORDERED: TOTAL PARENTERAL NUTRITION 1,560 ML IV SCH (20:00)
[2019-06-11 01:19] LABS: Alanine Aminotransferase 77 units/L (7-56); Albumin 1.7 g/dL (3.9-5); BUN/Creatinine Ratio 51; Blood Urea Nitrogen 36 mg/dL (9-20); Calcium 7.7 mg/dL (8.4-10.2); Hemolysis Index 0
[2019-06-11] MEDS: CALCIUM CARBONATE 500 MG TAB CHEW PO PRN ×2 (01:55→19:00)
[2019-06-11] MEDS: IPRATROPIUM/ALBUTEROL SULFATE 3 ML AMPUL.NEB IH SCH ×4 (03:59→19:40)
[2019-06-11] MEDS: HEPARIN 5,000 UNIT/1 ML VIAL SUB-Q SCH ×3 (05:22→21:27)
[2019-06-11] MEDS: CEFEPIME/NS 2 GM/100 ML 2 GM/100 ML BAG IV SCH ×2 (05:22→19:35)
[2019-06-11] MEDS: FUROSEMIDE 40 MG/4 ML INJ IV SCH ×2 (05:23→07:08)
[2019-06-11] MEDS: HYDROmorphone 1 MG/1 ML INJ IV PRN ×2 (05:23→19:34)
[2019-06-11] MEDS: metroNIDAZOLE/NS 500 MG/100 ML 500 MG/100 ML BAG IV SCH ×3 (05:55→21:27)
[2019-06-11] MEDS: ONDANSETRON 4 MG/2 ML INJ IV PRN (06:11)
[2019-06-11] MEDS: INSULIN LISPRO 100 UNIT/ML SUB-Q SCH ×3 (07:08→19:39)
[2019-06-11] MEDS: BUDESONIDE 0.5 MG/2 ML NEBU IH SCH ×2 (07:47→19:40)
[2019-06-11 07:48] LABS: Prealbumin 0.106 g/L (0.200-0.400)
[2019-06-11] MEDS: ARFORMOTEROL 15 MCG/2 ML NEBU IH SCH ×2 (07:48→19:39)
--- NOTE | 2019-06-11 09:34 | Progress Note ---
Assessment and Plan 1. Incentive spirometry 2. Reviewed ID note 3. Wean FiO2 for sats >88% 4. Will continue to follow. Overall prognosis appears guarded to poor Subjective Date of service: 06/11/19 Principal diagnosis: perforated gastric ulcer Interval history: Remains on 2 liters. Good sats. Objective Vital Signs - 12hr 06/10/19 06/11/19 06/11/19 22:00 00:49 00:50 Temperature 98.1 F Pulse Rate 118 H 116 H Pulse Rate [ Anterior Bilateral Throughout] Respiratory 17 Rate Respiratory Rate [Anterior Bilateral Throughout] Blood Pressure 109/68 O2 Sat by Pulse 98 Oximetry 06/11/19 06/11/19 06/11/19 04:00 05:02 07:06 Temperature 98.2 F 98.0 F Pulse Rate 115 H 115 H Pulse Rate [ 109 H Anterior Bilateral Throughout] Respiratory 17 18 Rate Respiratory 20 Rate [Anterior Bilateral Throughout] Blood Pressure 121/83 123/77 O2 Sat by Pulse 94 99 Oximetry 06/11/19 07:49 Temperature Pulse Rate Pulse Rate [ 114 H Anterior Bilateral Throughout] Respiratory Rate Respiratory 18 Rate [Anterior Bilateral Throughout] Blood Pressure O2 Sat by Pulse 94 Oximetry Constitutional: no acute distress, alert Eyes: non-icteric ENT: oropharynx moist Neck: supple Effort: normal Ascultation: Bilateral: clear, other (coarse BS bilaterally) Cardiovascular: regular rate and rhythm (no mrg) Gastrointestinal: absent bowel sounds, non-tender Integumentary: other (necrotic ulcers lower extremities) Extremities: no cyanosis, edema (1+ generalized edema) Neurologic: normal mental status, non-focal exam Psychiatric: mood appropriate, affect normal CBC and BMP: 06/10/19 09:25 06/11/19 00:22 ABG, PT/INR, D-dimer: ABG POC ABG pH 7.508 (7.35-7.45) H 06/07/19 09:44 POC ABG pCO2 41.5 (35-45) 06/07/19 09:44 POC ABG pO2 75 (80-105) L 06/07/19 09:44 POC ABG HCO3 33.0 (22-26 mml/L) 06/07/19 09:44 POC ABG Total CO2 34 (23-27mmol/L) 06/07/19 09:44 POC ABG O2 Sat 96 06/07/19 09:44 PT/INR, D-dimer PT 17.9 Sec. (12.2-14.9) H 06/02/19 07:15 INR 1.50 (0.87-1.13) H 06/02/19 07:15 Abnormal lab findings: Abnormal Labs 06/02/19 06/02/19 06/02/19 07:15 07:15 07:15 WBC 21.0 H RBC 5.17 H Hgb Hct MCH 27 L RDW 23.8 H Seg Neuts % (Manual) 97.0 H Lymphocytes % (Manual) 1.0 L Nucleated RBC % 3.0 H Seg Neutrophils # Man 20.4 H Lymphocytes # (Manual) 0.2 L PT 17.9 H INR 1.50 H POC ABG pH POC ABG pCO2 POC ABG pO2 VBG pH Sodium 130 L Chloride 97.1 L Carbon Dioxide 16 L BUN 47 H Creatinine Glucose 139 H POC Glucose Lactic Acid Calcium Phosphorus Magnesium Total Bilirubin 6.40 H Direct Bilirubin 4.5 H AST 50 H ALT Alkaline Phosphatase 179 H Ammonia Total Creatine Kinase 53 L CK-MB (CK-2) 5.1 H CK-MB (CK-2) Rel Index 9.6 H Troponin T NT-Pro-B Natriuret Pep > 63791 H Total Protein 5.8 L Albumin 2.1 L Prealbumin LDL Cholesterol Direct HDL Cholesterol Vancomycin Trough 06/02/19 06/02/19 06/02/19 07:15 07:15 07:15 WBC RBC Hgb Hct MCH RDW Seg Neuts % (Manual) Lymphocytes % (Manual) Nucleated RBC % Seg Neutrophils # Man Lymphocytes # (Manual) PT INR POC ABG pH POC ABG pCO2 POC ABG pO2 VBG pH 7.310 L Sodium Chloride Carbon Dioxide BUN Creatinine Glucose POC Glucose Lactic Acid 2.40 H* Calcium Phosphorus Magnesium Total Bilirubin Direct Bilirubin AST ALT Alkaline Phosphatase Ammonia 16.0 L Total Creatine Kinase CK-MB (CK-2) CK-MB (CK-2) Rel Index Troponin T NT-Pro-B Natriuret Pep Total Protein Albumin Prealbumin LDL Cholesterol Direct HDL Cholesterol Vancomycin Trough 06/02/19 06/02/19 06/02/19 07:15 15:33 15:53 WBC RBC Hgb Hct MCH RDW Seg Neuts % (Manual) Lymphocytes % (Manual) Nucleated RBC % Seg Neutrophils # Man Lymphocytes # (Manual) PT INR POC ABG pH 7.229 L POC ABG pCO2 49.5 H POC ABG pO2 VBG pH Sodium Chloride Carbon Dioxide BUN Creatinine Glucose POC Glucose 66 L Lactic Acid Calcium Phosphorus Magnesium Total Bilirubin Direct Bilirubin AST ALT Alkaline Phosphatase Ammonia Total Creatine Kinase CK-MB (CK-2) CK-MB (CK-2) Rel Index Troponin T 0.065 H NT-Pro-B Natriuret Pep Total Protein Albumin Prealbumin LDL Cholesterol Direct 31 L HDL Cholesterol 8 L Vancomycin Trough 06/02/19 06/02/19 06/03/19 16:40 17:10 04:06 WBC RBC Hgb Hct MCH RDW Seg Neuts % (Manual) Lymphocytes % (Manual) Nucleated RBC % Seg Neutrophils # Jake Lymphocytes # (Manual) PT INR POC ABG pH 7.259 L POC ABG pCO2 33.9 L POC ABG pO2 221 H 146 H VBG pH Sodium Chloride Carbon Dioxide BUN Creatinine Glucose POC Glucose 151 H Lactic Acid Calcium Phosphorus Magnesium Total Bilirubin Direct Bilirubin AST ALT Alkaline Phosphatase Ammonia Total Creatine Kinase CK-MB (CK-2) CK-MB (CK-2) Rel Index Troponin T NT-Pro-B Natriuret Pep Total Protein Albumin Prealbumin LDL Cholesterol Direct HDL Cholesterol Vancomycin Trough 06/03/19 06/03/19 06/03/19 04:41 04:41 17:23 WBC 17.5 H RBC Hgb Hct MCH 27 L RDW 25.0 H Seg Neuts % (Manual) 96.0 H Lymphocytes % (Manual) 0 L Nucleated RBC % 1.0 H Seg Neutrophils # Jake 16.8 H Lymphocytes # (Manual) 0.0 L PT INR POC ABG pH POC ABG pCO2 POC ABG pO2 VBG pH Sodium Chloride Carbon Dioxide 17 L BUN 42 H Creatinine Glucose 59 L POC Glucose 113 H Lactic Acid Calcium Phosphorus Magnesium Total Bilirubin 7.00 H Direct Bilirubin AST ALT Alkaline Phosphatase 153 H Ammonia Total Creatine Kinase CK-MB (CK-2) CK-MB (CK-2) Rel Index Troponin T NT-Pro-B Natriuret Pep Total Protein 5.9 L Albumin 1.7 L Prealbumin LDL Cholesterol Direct HDL Cholesterol Vancomycin Trough 06/03/19 06/04/19 06/04/19 23:37 05:10 05:10 WBC 16.7 H RBC Hgb Hct MCH 27 L RDW 24.5 H Seg Neuts % (Manual) 94.0 H Lymphocytes % (Manual) 3.0 L Nucleated RBC % Seg Neutrophils # Man 15.7 H Lymphocytes # (Manual) 0.5 L PT INR POC ABG pH POC ABG pCO2 POC ABG pO2 VBG pH Sodium Chloride Carbon Dioxide BUN 39 H Creatinine Glucose 136 H POC Glucose 126 H Lactic Acid Calcium 8.3 L Phosphorus Magnesium 1.30 L Total Bilirubin 7.70 H Direct Bilirubin AST ALT Alkaline Phosphatase 140 H Ammonia Total Creatine Kinase CK-MB (CK-2) CK-MB (CK-2) Rel Index Troponin T NT-Pro-B Natriuret Pep Total Protein 5.6 L Albumin 1.7 L Prealbumin LDL Cholesterol Direct HDL Cholesterol Vancomycin Trough 06/04/19 06/04/19 06/04/19 05:44 13:50 18:05 WBC RBC Hgb Hct MCH RDW Seg Neuts % (Manual) Lymphocytes % (Manual) Nucleated RBC % Seg Neutrophils # Man Lymphocytes # (Manual) PT INR POC ABG pH POC ABG pCO2 POC ABG pO2 VBG pH Sodium Chloride Carbon Dioxide BUN Creatinine Glucose POC Glucose 124 H 137 H 120 H Lactic Acid Calcium Phosphorus Magnesium Total Bilirubin Direct Bilirubin AST ALT Alkaline Phosphatase Ammonia Total Creatine Kinase CK-MB (CK-2) CK-MB (CK-2) Rel Index Troponin T NT-Pro-B Natriuret Pep Total Protein Albumin Prealbumin LDL Cholesterol Direct HDL Cholesterol Vancomycin Trough 06/05/19 06/05/19 06/05/19 00:58 04:20 04:20 WBC 15.0 H RBC Hgb Hct MCH 27 L RDW 25.0 H Seg Neuts % (Manual) Lymphocytes % (Manual) Nucleated RBC % Seg Neutrophils # Man Lymphocytes # (Manual) PT INR POC ABG pH POC ABG pCO2 POC ABG pO2 VBG pH Sodium Chloride Carbon Dioxide BUN 52 H Creatinine Glucose 137 H POC Glucose 114 H Lactic Acid Calcium 7.8 L Phosphorus Magnesium Total Bilirubin Direct Bilirubin AST ALT Alkaline Phosphatase Ammonia Total Creatine Kinase CK-MB (CK-2) CK-MB (CK-2) Rel Index Troponin T NT-Pro-B Natriuret Pep Total Protein Albumin Prealbumin LDL Cholesterol Direct HDL Cholesterol Vancomycin Trough 06/05/19 06/05/19 06/05/19 05:39 05:45 09:45 WBC RBC Hgb Hct MCH RDW Seg Neuts % (Manual) Lymphocytes % (Manual) Nucleated RBC % Seg Neutrophils # Man Lymphocytes # (Manual) PT INR POC ABG pH POC ABG pCO2 POC ABG pO2 108 H VBG pH Sodium Chloride Carbon Dioxide BUN Creatinine Glucose POC Glucose 111 H Lactic Acid Calcium Phosphorus Magnesium Total Bilirubin Direct Bilirubin AST ALT Alkaline Phosphatase Ammonia Total Creatine Kinase CK-MB (CK-2) CK-MB (CK-2) Rel Index Troponin T NT-Pro-B Natriuret Pep Total Protein Albumin Prealbumin LDL Cholesterol Direct HDL Cholesterol Vancomycin Trough 20.1 H 06/05/19 06/05/19 06/06/19 13:25 18:27 00:01 WBC RBC Hgb Hct MCH RDW Seg Neuts % (Manual) Lymphocytes % (Manual) Nucleated RBC % Seg Neutrophils # Man Lymphocytes # (Manual) PT INR POC ABG pH POC ABG pCO2 POC ABG pO2 VBG pH Sodium Chloride Carbon Dioxide BUN Creatinine Glucose POC Glucose 152 H 194 H 153 H Lactic Acid Calcium Phosphorus Magnesium Total Bilirubin Direct Bilirubin AST ALT Alkaline Phosphatase Ammonia Total Creatine Kinase CK-MB (CK-2) CK-MB (CK-2) Rel Index Troponin T NT-Pro-B Natriuret Pep Total Protein Albumin Prealbumin LDL Cholesterol Direct HDL Cholesterol Vancomycin Trough 06/06/19 06/06/19 06/06/19 04:20 05:45 12:32 WBC RBC Hgb Hct MCH RDW Seg Neuts % (Manual) Lymphocytes % (Manual) Nucleated RBC % Seg Neutrophils # Man Lymphocytes # (Manual) PT INR POC ABG pH POC ABG pCO2 POC ABG pO2 VBG pH Sodium Chloride Carbon Dioxide BUN 62 H Creatinine Glucose 141 H POC Glucose 161 H 131 H Lactic Acid Calcium 7.7 L Phosphorus 2.40 L Magnesium Total Bilirubin Direct Bilirubin AST ALT Alkaline Phosphatase Ammonia Total Creatine Kinase CK-MB (CK-2) CK-MB (CK-2) Rel Index Troponin T NT-Pro-B Natriuret Pep Total Protein Albumin Prealbumin LDL Cholesterol Direct HDL Cholesterol Vancomycin Trough 06/07/19 06/07/19 06/07/19 02:07 05:36 05:36 WBC 25.3 H RBC Hgb 10.8 L Hct 33.7 L MCH 27 L RDW 26.7 H Seg Neuts % (Manual) Lymphocytes % (Manual) Nucleated RBC % Seg Neutrophils # Man Lymphocytes # (Manual) PT INR POC ABG pH POC ABG pCO2 POC ABG pO2 VBG pH Sodium 135 L Chloride 93.6 L Carbon Dioxide BUN 58 H Creatinine Glucose 131 H POC Glucose 165 H Lactic Acid Calcium 8.0 L Phosphorus Magnesium Total Bilirubin Direct Bilirubin AST ALT Alkaline Phosphatase Ammonia Total Creatine Kinase CK-MB (CK-2) CK-MB (CK-2) Rel Index Troponin T NT-Pro-B Natriuret Pep Total Protein Albumin Prealbumin LDL Cholesterol Direct HDL Cholesterol Vancomycin Trough 06/07/19 06/07/19 06/07/19 09:44 18:05 23:51 WBC RBC Hgb Hct MCH RDW Seg Neuts % (Manual) Lymphocytes % (Manual) Nucleated RBC % Seg Neutrophils # Man Lymphocytes # (Manual) PT INR POC ABG pH 7.508 H POC ABG pCO2 POC ABG pO2 75 L VBG pH Sodium Chloride Carbon Dioxide BUN Creatinine Glucose POC Glucose 137 H 180 H Lactic Acid Calcium Phosphorus Magnesium Total Bilirubin Direct Bilirubin AST ALT Alkaline Phosphatase Ammonia Total Creatine Kinase CK-MB (CK-2) CK-MB (CK-2) Rel Index Troponin T NT-Pro-B Natriuret Pep Total Protein Albumin Prealbumin LDL Cholesterol Direct HDL Cholesterol Vancomycin Trough 06/08/19 06/08/19 06/08/19 05:07 05:07 06:26 WBC 25.1 H RBC 3.21 L Hgb 8.8 L Hct 27.3 L D MCH RDW 27.7 H Seg Neuts % (Manual) Lymphocytes % (Manual) Nucleated RBC % Seg Neutrophils # Man Lymphocytes # (Manual) PT INR POC ABG pH POC ABG pCO2 POC ABG pO2 VBG pH Sodium 134 L Chloride 97.2 L Carbon Dioxide BUN 49 H Creatinine 0.7 L Glucose 144 H POC Glucose 149 H Lactic Acid Calcium 7.7 L Phosphorus Magnesium Total Bilirubin Direct Bilirubin AST ALT Alkaline Phosphatase Ammonia Total Creatine Kinase CK-MB (CK-2) CK-MB (CK-2) Rel Index Troponin T NT-Pro-B Natriuret Pep Total Protein Albumin Prealbumin LDL Cholesterol Direct HDL Cholesterol Vancomycin Trough 06/08/19 06/08/19 06/09/19 11:18 17:43 00:04 WBC RBC Hgb Hct MCH RDW Seg Neuts % (Manual) Lymphocytes % (Manual) Nucleated RBC % Seg Neutrophils # Man Lymphocytes # (Manual) PT INR POC ABG pH POC ABG pCO2 POC ABG pO2 VBG pH Sodium Chloride Carbon Dioxide BUN Creatinine Glucose POC Glucose 134 H 153 H 161 H Lactic Acid Calcium Phosphorus Magnesium Total Bilirubin Direct Bilirubin AST ALT Alkaline Phosphatase Ammonia Total Creatine Kinase CK-MB (CK-2) CK-MB (CK-2) Rel Index Troponin T NT-Pro-B Natriuret Pep Total Protein Albumin Prealbumin LDL Cholesterol Direct HDL Cholesterol Vancomycin Trough 06/09/19 06/09/19 06/09/19 05:51 08:58 11:53 WBC RBC Hgb Hct MCH RDW Seg Neuts % (Manual) Lymphocytes % (Manual) Nucleated RBC % Seg Neutrophils # Man Lymphocytes # (Manual) PT INR POC ABG pH POC ABG pCO2 POC ABG pO2 VBG pH Sodium Chloride 97.1 L Carbon Dioxide BUN 40 H Creatinine 0.6 L Glucose 161 H POC Glucose 183 H 189 H Lactic Acid Calcium 7.9 L Phosphorus Magnesium Total Bilirubin Direct Bilirubin AST ALT Alkaline Phosphatase Ammonia Total Creatine Kinase CK-MB (CK-2) CK-MB (CK-2) Rel Index Troponin T NT-Pro-B Natriuret Pep Total Protein Albumin Prealbumin LDL Cholesterol Direct HDL Cholesterol Vancomycin Trough 06/09/19 06/10/19 06/10/19 17:30 05:00 08:36 WBC RBC Hgb Hct MCH RDW Seg Neuts % (Manual) Lymphocytes % (Manual) Nucleated RBC % Seg Neutrophils # Man Lymphocytes # (Manual) PT INR POC ABG pH POC ABG pCO2 POC ABG pO2 VBG pH Sodium Chloride Carbon Dioxide BUN Creatinine Glucose POC Glucose 145 H 173 H 119 H Lactic Acid Calcium Phosphorus Magnesium Total Bilirubin Direct Bilirubin AST ALT Alkaline Phosphatase Ammonia Total Creatine Kinase CK-MB (CK-2) CK-MB (CK-2) Rel Index Troponin T NT-Pro-B Natriuret Pep Total Protein Albumin Prealbumin LDL Cholesterol Direct HDL Cholesterol Vancomycin Trough 06/10/19 06/10/19 06/10/19 09:25 09:25 09:25 WBC 18.9 H RBC 2.61 L Hgb 7.3 L Hct 22.8 L MCH RDW 29.2 H Seg Neuts % (Manual) Lymphocytes % (Manual) Nucleated RBC % Seg Neutrophils # Man Lymphocytes # (Manual) PT INR POC ABG pH POC ABG pCO2 POC ABG pO2 VBG pH Sodium Chloride 95.5 L Carbon Dioxide 31 H BUN 38 H Creatinine Glucose 115 H POC Glucose Lactic Acid Calcium 7.8 L Phosphorus Magnesium Total Bilirubin 4.80 H Direct Bilirubin 3.7 H AST 127 H ALT 93 H Alkaline Phosphatase 180 H Ammonia Total Creatine Kinase CK-MB (CK-2) CK-MB (CK-2) Rel Index Troponin T NT-Pro-B Natriuret Pep Total Protein 5.3 L Albumin 1.5 L Prealbumin LDL Cholesterol Direct HDL Cholesterol Vancomycin Trough 06/10/19 06/10/19 06/10/19 11:23 16:38 21:11 WBC RBC Hgb Hct MCH RDW Seg Neuts % (Manual) Lymphocytes % (Manual) Nucleated RBC % Seg Neutrophils # Man Lymphocytes # (Manual) PT INR POC ABG pH POC ABG pCO2 POC ABG pO2 VBG pH Sodium Chloride Carbon Dioxide BUN Creatinine Glucose POC Glucose 175 H 164 H 159 H Lactic Acid Calcium Phosphorus Magnesium Total Bilirubin Direct Bilirubin AST ALT Alkaline Phosphatase Ammonia Total Creatine Kinase CK-MB (CK-2) CK-MB (CK-2) Rel Index Troponin T NT-Pro-B Natriuret Pep Total Protein Albumin Prealbumin LDL Cholesterol Direct HDL Cholesterol Vancomycin Trough 06/10/19 06/11/19 06/11/19 23:23 00:22 05:58 WBC RBC Hgb Hct MCH RDW Seg Neuts % (Manual) Lymphocytes % (Manual) Nucleated RBC % Seg Neutrophils # Man Lymphocytes # (Manual) PT INR POC ABG pH POC ABG pCO2 POC ABG pO2 VBG pH Sodium 135 L Chloride 95.7 L Carbon Dioxide 33 H BUN 36 H Creatinine 0.7 L Glucose 155 H POC Glucose 188 H Lactic Acid Calcium 7.7 L Phosphorus Magnesium Total Bilirubin 4.10 H Direct Bilirubin AST 89 H ALT 77 H Alkaline Phosphatase 154 H Ammonia Total Creatine Kinase CK-MB (CK-2) CK-MB (CK-2) Rel Index Troponin T NT-Pro-B Natriuret Pep Total Protein 5.3 L Albumin 1.7 L Prealbumin 0.106 L LDL Cholesterol Direct HDL Cholesterol Vancomycin Trough 06/11/19 06:53 WBC RBC Hgb Hct MCH RDW Seg Neuts % (Manual) Lymphocytes % (Manual) Nucleated RBC % Seg Neutrophils # Man Lymphocytes # (Manual) PT INR POC ABG pH POC ABG pCO2 POC ABG pO2 VBG pH Sodium Chloride Carbon Dioxide BUN Creatinine Glucose POC Glucose 198 H Lactic Acid Calcium Phosphorus Magnesium Total Bilirubin Direct Bilirubin AST ALT Alkaline Phosphatase Ammonia Total Creatine Kinase CK-MB (CK-2) CK-MB (CK-2) Rel Index Troponin T NT-Pro-B Natriuret Pep Total Protein Albumin Prealbumin LDL Cholesterol Direct HDL Cholesterol Vancomycin Trough
[2019-06-11] MEDS: FLUCONAZOLE 400 MG 200 ML IV SCH (10:00)
--- NOTE | 2019-06-11 10:00 | Gastroenterology Progress Note ---
Assessment and Plan 1. Elevated T bilirubin - CT 05/2019 negative, and serologies (hepatitis etc) negative March - likely cholestatic due to underlying illnesses, with component due to TPN and possibly CHF(severe, end-stage cardiomyopathy;EF 10-15%) - LFTs trending down - advance diet as soon as possible, to wean off TPN (brigid lipids) - Optimization of cardiac status (as possible) - continue to trend labs and supportive care (will be several days to a few weeks to resolve, and will likely have chronic hyperbilirubinemia) - no further workup per GI standpoint recommended at this time - will sign off, please call if needed Subjective Date of service: 06/11/19 Principal diagnosis: elevated LFTs Interval history: No acute distress Objective - Constitutional Vitals: Temp Pulse Resp BP Pulse Ox 98.0 F 114 H 18 123/77 94 06/11/19 07:06 06/11/19 07:49 06/11/19 07:49 06/11/19 07:06 06/11/19 07:49 General appearance: no acute distress - Cardiovascular Rhythm: other (tachycardia) - Gastrointestinal General gastrointestinal: Present: soft, tender (slight TTP), non-distended, hypoactive bowel sounds, other (+incisional site, +TANESHA) - Neurologic Neurological: alert and oriented x3 - Labs CBC & Chem 7: 06/10/19 09:25 06/11/19 00:22 Labs: Laboratory Results - last 24 hr 06/10/19 06/10/19 06/10/19 09:25 09:25 11:23 Sodium 139 Potassium 4.5 Chloride 95.5 L Carbon Dioxide 31 H Anion Gap 17 BUN 38 H Creatinine 0.8 Estimated GFR > 60 BUN/Creatinine Ratio 48 Glucose 115 H POC Glucose 175 H Calcium 7.8 L Phosphorus 3.50 Magnesium 1.80 Total Bilirubin 4.80 H Direct Bilirubin 3.7 H Indirect Bilirubin 1.1 AST 127 H ALT 93 H Alkaline Phosphatase 180 H Total Protein 5.3 L Albumin 1.5 L Albumin/Globulin Ratio 0.4 Prealbumin Triglycerides 06/10/19 06/10/19 06/10/19 16:38 21:11 23:23 Sodium Potassium Chloride Carbon Dioxide Anion Gap BUN Creatinine Estimated GFR BUN/Creatinine Ratio Glucose POC Glucose 164 H 159 H 188 H Calcium Phosphorus Magnesium Total Bilirubin Direct Bilirubin Indirect Bilirubin AST ALT Alkaline Phosphatase Total Protein Albumin Albumin/Globulin Ratio Prealbumin Triglycerides 06/11/19 06/11/19 06/11/19 00:22 05:58 06:53 Sodium 135 L Potassium 4.7 Chloride 95.7 L Carbon Dioxide 33 H Anion Gap 11 BUN 36 H Creatinine 0.7 L Estimated GFR > 60 BUN/Creatinine Ratio 51 Glucose 155 H POC Glucose 198 H Calcium 7.7 L Phosphorus 3.60 Magnesium 2.00 Total Bilirubin 4.10 H Direct Bilirubin Indirect Bilirubin AST 89 H ALT 77 H Alkaline Phosphatase 154 H Total Protein 5.3 L Albumin 1.7 L Albumin/Globulin Ratio 0.5 Prealbumin 0.106 L Triglycerides 78
--- NOTE | 2019-06-11 10:41 | Progress Note ---
Assessment and Plan Pt's diet has been advanced to GI soft per general surgery. Will resume home coreg, losartan, lasix. Currently stable cardiac status. He is noted to have bouts of NSVT on telemetry. He has known NICMP and is followed in our office by Dr. Alatorre. He has chronically declined LifeVest and/or AICD. Monitor electrolyses and cont to observe on telemetry. The patient has been seen in conjunction with Dr. Melia Baird who agrees with the assessment and plan of care. - Patient Problems (1) Pneumoperitoneum Current Visit: Yes Status: Acute (2) Sepsis Current Visit: Yes Status: Acute Qualifiers: Sepsis type: sepsis due to unspecified organism Sepsis acute organ dysfunction status: unspecified Qualified Code(s): A41.9 - Sepsis, unspecified organism (3) Chronic HFrEF (heart failure with reduced ejection fraction) Current Visit: Yes Status: Chronic (4) Nonischemic cardiomyopathy Current Visit: Yes Status: Chronic convert IV lopressor (5) Sinus node dysfunction Current Visit: Yes Status: Chronic (6) NSVT (nonsustained ventricular tachycardia) Current Visit: Yes Status: Chronic (7) HTN (hypertension) Current Visit: Yes Status: Chronic Qualifiers: Hypertension type: essential hypertension Qualified Code(s): I10 - Essential (primary) hypertension (8) Pulmonary hypertension Current Visit: Yes Status: Chronic (9) PAD (peripheral artery disease) Current Visit: Yes Status: Chronic (10) Anemia Current Visit: Yes Status: Acute Subjective Date of service: 06/11/19 Principal diagnosis: elevated LFTs Interval history: pt resting in bed, sleeping, no apparent distress. in ST with HR 120s, no acute events noted overnight. no family at bedside. Objective Last Vital Signs Temp 98.0 F 06/11/19 07:06 Pulse 114 H 06/11/19 07:49 Resp 18 06/11/19 07:49 BP 123/77 06/11/19 07:06 Pulse Ox 94 06/11/19 07:49 - Physical Examination General: No Apparent Distress HEENT: Positive: EOMI, Normocephaly, Mucus Membranes Moist Neck: Positive: neck supple, trachea midline, Carotid Upstroke (full) Cardiac: Positive: Reg Rate and Rhythm, S1/S2 Lungs: Positive: Decreased Breath Sounds Neuro: Positive: Grossly Intact Abdomen: Positive: Soft /Rectal: Other (Urine dark yellow) Skin: Positive: Other (abdominal surgical wounds, multiple wounds on both lower extremities with areas of ischemic ulceration.) Musculoskeletal: Normal Range of Motion Extremities: Present: lower extr. pulses (LLE difficult to palpate d/t wound dressing and ischemic ulceration), Other (LLE - pulse difficult to palpate d/t wounds ) - Labs and Meds Cardiac Enzymes 06/11/19 Range/Units 00:22 AST 89 H (5-40) units/L Lipids 06/11/19 Range/Units 05:58 Triglycerides 78 (2-149) mg/dL Comprehensive Metabolic Panel 06/11/19 Range/Units 00:22 Sodium 135 L (137-145) mmol/L Potassium 4.7 (3.6-5.0) mmol/L Chloride 95.7 L (98-107) mmol/L Carbon Dioxide 33 H (22-30) mmol/L BUN 36 H (9-20) mg/dL Creatinine 0.7 L (0.8-1.5) mg/dL Glucose 155 H (75-100) mg/dL Calcium 7.7 L (8.4-10.2) mg/dL AST 89 H (5-40) units/L ALT 77 H (7-56) units/L Alkaline Phosphatase 154 H (35-129) units/L Total Protein 5.3 L (6.3-8.2) g/dL Albumin 1.7 L (3.9-5) g/dL - Imaging and Cardiology EKG: image reviewed Echo: report reviewed (02/28/19 showed EF of 10-15%, dilation of all chambers, moderate AR, moderate to severe TR and RV hypokinesis. ) Cardiac cath: report reviewed (04/2017 showed patent coronaries, EF 10-15%. ) - Telemetry EKG Rhythm: Sinus Rhythm - EKG Sinus rhythms and dysrhythmias: sinus rhythm Chamber hypertrophy or enlargement: left ventricular hypertro Repolarization changes or abnormalities: repolarization abn secondary to ventricular hypertrophy Myocardial infarction: septal TX (old age or ind
[2019-06-11] MEDS: PANTOPRAZOLE 40 MG INJ IV SCH ×2 (12:00→21:27)
--- NOTE | 2019-06-11 13:27 | Progress Note ---
Assessment and Plan 63 yo M s/p exploratory laparotomy, omental patch of perforated gastric ulcer POD 9 1. sepsis 2. perforated gastric ulcer 3. severe malnutrition 4. b/l pleural effusions 5. bedbound 6. infected b/l LE wounds with likely chronic limb ischemia 7. cardiomyopathy 8. CHF Arterial duplex - no arterial disease Plan: 1. prn PO pain control - oxycodone 2. DVT ppx 3. Protonix IV BID 4. no NSAIDs 5. Will place back on full liquids, patient seemed to be tolerating fulls better. continue TPN - PAL is low and patient will benefit from additional nutrition in the post op period - can dc upon discharge. Pleating Machine Operator notes reviewed and in agreement to continue TPN and oral diet. Patient counselled on sitting up while eating or drinking to prevent aspiration. 6. IS/pulm toilet 7. OOB with PT 8. IV abx per ID 9. Keep TANESHA site with alginate and dry dressing - RN orders placed. Change PRN Overall prognosis is poor. Please call with questions. Subjective Date of service: 06/11/19 Narrative: Patient seen and examined. c/o nausea and states he threw up after drinking ensure this am. Admits to laying almost completely flat when drinking it. c/o abdominal pain. Can not fully elaborate what the cause of the pain is. States it may be related to old TANESHA site leaking fluid. States he cannot eat solid food due to pain. No f/c, cp, sob. Objective Vital Signs - 12hr 06/11/19 06/11/19 06/11/19 04:00 05:02 07:06 Temperature 98.2 F 98.0 F Pulse Rate 115 H 115 H Pulse Rate [ 109 H Anterior Bilateral Throughout] Respiratory 17 18 Rate Respiratory 20 Rate [Anterior Bilateral Throughout] Blood Pressure 121/83 123/77 O2 Sat by Pulse 94 99 Oximetry 06/11/19 07:49 Temperature Pulse Rate Pulse Rate [ 114 H Anterior Bilateral Throughout] Respiratory Rate Respiratory 18 Rate [Anterior Bilateral Throughout] Blood Pressure O2 Sat by Pulse 94 Oximetry - General physical appearance Narrative Exam: Gen: AAOx3. NAD CV: s1, S2+ resp: even and unlabored Abd: soft, ND, NT. incision c/d/i with tessy in place. R sided old TANESHA site with clear yellow drainage without odor. Skin is intact. Alginate applied to wound, covered with dry gauze and coversite dressing Ext: no c/c/e. B/L lower extremity wounds. - Labs 06/10/19 09:25 06/11/19 00:22 Diabetes panel 06/11/19 06/11/19 Range/Units 00:22 05:58 Sodium 135 L (137-145) mmol/L Potassium 4.7 (3.6-5.0) mmol/L Chloride 95.7 L (98-107) mmol/L Carbon Dioxide 33 H (22-30) mmol/L BUN 36 H (9-20) mg/dL Creatinine 0.7 L (0.8-1.5) mg/dL Glucose 155 H (75-100) mg/dL Calcium 7.7 L (8.4-10.2) mg/dL AST 89 H (5-40) units/L ALT 77 H (7-56) units/L Alkaline Phosphatase 154 H (35-129) units/L Total Protein 5.3 L (6.3-8.2) g/dL Albumin 1.7 L (3.9-5) g/dL Triglycerides 78 (2-149) mg/dL Calcium panel 06/11/19 06/11/19 Range/Units 00:22 05:58 Calcium 7.7 L (8.4-10.2) mg/dL Phosphorus 3.60 (2.5-4.5) mg/dL Albumin 1.7 L (3.9-5) g/dL Pituitary panel 06/11/19 Range/Units 00:22 Sodium 135 L (137-145) mmol/L Potassium 4.7 (3.6-5.0) mmol/L Chloride 95.7 L (98-107) mmol/L Carbon Dioxide 33 H (22-30) mmol/L BUN 36 H (9-20) mg/dL Creatinine 0.7 L (0.8-1.5) mg/dL Glucose 155 H (75-100) mg/dL Calcium 7.7 L (8.4-10.2) mg/dL Adrenal panel 06/11/19 Range/Units 00:22 Sodium 135 L (137-145) mmol/L Potassium 4.7 (3.6-5.0) mmol/L Chloride 95.7 L (98-107) mmol/L Carbon Dioxide 33 H (22-30) mmol/L BUN 36 H (9-20) mg/dL Creatinine 0.7 L (0.8-1.5) mg/dL Glucose 155 H (75-100) mg/dL Calcium 7.7 L (8.4-10.2) mg/dL Total Bilirubin 4.10 H (0.1-1.2) mg/dL AST 89 H (5-40) units/L ALT 77 H (7-56) units/L Alkaline Phosphatase 154 H (35-129) units/L Total Protein 5.3 L (6.3-8.2) g/dL Albumin 1.7 L (3.9-5) g/dL
--- NOTE | 2019-06-11 14:14 | Progress Note ---
Assessment and Plan - Patient Problems (1) Abscess of right foot Current Visit: Yes Status: Acute Plan to address problem: 1) Will debride bilateral foot wounds tomorrow at bedside. Subjective Date of service: 06/11/19 Patient Reports: Positive: no new complaints Objective Vital Signs - 12hr 06/11/19 06/11/19 06/11/19 04:00 05:02 07:06 Temperature 98.2 F 98.0 F Pulse Rate 115 H 115 H Pulse Rate [ 109 H Anterior Bilateral Throughout] Respiratory 17 18 Rate Respiratory 20 Rate [Anterior Bilateral Throughout] Blood Pressure 121/83 123/77 O2 Sat by Pulse 94 99 Oximetry 06/11/19 07:49 Temperature Pulse Rate Pulse Rate [ 114 H Anterior Bilateral Throughout] Respiratory Rate Respiratory 18 Rate [Anterior Bilateral Throughout] Blood Pressure O2 Sat by Pulse 94 Oximetry - Integumentary other (Bilateral dorsal foot wounds were examined. There is additional necrotic SQ tissue that needs debridement.) - Labs 06/10/19 09:25 06/11/19 00:22 Diabetes panel 06/11/19 06/11/19 Range/Units 00:22 05:58 Sodium 135 L (137-145) mmol/L Potassium 4.7 (3.6-5.0) mmol/L Chloride 95.7 L (98-107) mmol/L Carbon Dioxide 33 H (22-30) mmol/L BUN 36 H (9-20) mg/dL Creatinine 0.7 L (0.8-1.5) mg/dL Glucose 155 H (75-100) mg/dL Calcium 7.7 L (8.4-10.2) mg/dL AST 89 H (5-40) units/L ALT 77 H (7-56) units/L Alkaline Phosphatase 154 H (35-129) units/L Total Protein 5.3 L (6.3-8.2) g/dL Albumin 1.7 L (3.9-5) g/dL Triglycerides 78 (2-149) mg/dL Calcium panel 06/11/19 06/11/19 Range/Units 00:22 05:58 Calcium 7.7 L (8.4-10.2) mg/dL Phosphorus 3.60 (2.5-4.5) mg/dL Albumin 1.7 L (3.9-5) g/dL Pituitary panel 06/11/19 Range/Units 00:22 Sodium 135 L (137-145) mmol/L Potassium 4.7 (3.6-5.0) mmol/L Chloride 95.7 L (98-107) mmol/L Carbon Dioxide 33 H (22-30) mmol/L BUN 36 H (9-20) mg/dL Creatinine 0.7 L (0.8-1.5) mg/dL Glucose 155 H (75-100) mg/dL Calcium 7.7 L (8.4-10.2) mg/dL Adrenal panel 06/11/19 Range/Units 00:22 Sodium 135 L (137-145) mmol/L Potassium 4.7 (3.6-5.0) mmol/L Chloride 95.7 L (98-107) mmol/L Carbon Dioxide 33 H (22-30) mmol/L BUN 36 H (9-20) mg/dL Creatinine 0.7 L (0.8-1.5) mg/dL Glucose 155 H (75-100) mg/dL Calcium 7.7 L (8.4-10.2) mg/dL Total Bilirubin 4.10 H (0.1-1.2) mg/dL AST 89 H (5-40) units/L ALT 77 H (7-56) units/L Alkaline Phosphatase 154 H (35-129) units/L Total Protein 5.3 L (6.3-8.2) g/dL Albumin 1.7 L (3.9-5) g/dL
[2019-06-11] MEDS: oxyCODONE 5 MG TAB PO PRN (14:42)
--- NOTE | 2019-06-11 14:44 | Progress Note ---
Assessment and Plan Cultures: Blood culture 06/02/19 no growth to date Urine culture 06/02/19 no growth to date Surgical culture 06/02/19 Suni albicans Wound culture right foot 06/02/2019 - PsA, Morganella Surgical foot culture Left 06/05/2019 - P mirabilis Surgical foot culture right 06/05/2019 - P mirabilis Assessment: 63 yo M with severe non ischemic cardiomyopathy and heart failure, chronic bilateral wounds admitted with small perforated gastric ulcer. 1. Acute sepsis: POA. Likely secondary to perforated gastric ulcer and infected chronic wounds on LE. 2. Infected bilateral infected wounds - chronic with worsening. He has significant CHF and likely perfusion compromise. Concern for the viability of these limbs. Surgery has also evaluated. patient has refused amputation. His LE wounds are not curable. This was explained to him at length by Dr. Dos Santos. 3. Perforated gastric ulcer: s/p surgery: exploratory laparotomy, omental patch of perforated gastric ulcer. 4. Elevated bilirubin: GI following. Cholestasis, thought to be related to congestive heart failure and TPN. Recs: - continue cefepime, fluconazole and metronidazole while inpatient - awaiting additional debridement by Dr. Oakes tomorrow - when ready for discharge, would do a short course of PO abx: Levofloxacin - continue wound care Diamond Cohen MD, FACP [facility] ([facility] C: [phone] O: [phone] F: [phone] Subjective Date of service: 06/11/19 Principal diagnosis: elevated LFTs Interval history: Had no fever. Continues to complains of fluid leaking from abdominal wall. No other issues. tolerating abx well. Complains of wounds on his legs Objective - Exam Narrative Exam: Physical Exam: Constitutional: Alert, cooperative. No acute distress Head, Ears, Nose: Normocephalic, atraumatic. External ears, nose normal Eyes: Conjunctivae/corneas clear. icterus +. No ptosis. Neck: Supple, no meningeal signs Oral: dentition poor, no thrush Cardiovascular: S1, S2 normal. Respiratory: Good air entry, clear to auscultation bilaterally GI: Soft, non-tender; bowel sounds normal. Midline incision healing well. R lateral wall with dressing Musculoskeletal: b/l LE with extensive wounds and drainage Skin: No rash or abscess Hem/Lymphatic: No palpable cervical or supraclavicular nodes. No lymphangitis Psych: Mood ok. Affect flat Neurological: Awake, alert, oriented. - Constitutional Vitals: Vital Signs Temp Pulse Resp BP Pulse Ox 98.0 F 114 H 18 123/77 94 06/11/19 07:06 06/11/19 07:49 06/11/19 07:49 06/11/19 07:06 06/11/19 07:49 Temperature -Last 24 Hours Temperature 98.0 F Temperature 98.2 F Temperature 98.1 F Temperature 98.1 F Temperature 98.7 F - Labs CBC & Chem 7: 06/10/19 09:25 06/11/19 00:22 Labs: Abnormal lab results 06/10/19 06/10/19 06/10/19 Range/Units 16:38 21:11 23:23 Sodium (137-145) mmol/L Chloride (98-107) mmol/L Carbon Dioxide (22-30) mmol/L BUN (9-20) mg/dL Creatinine (0.8-1.5) mg/dL Glucose (75-100) mg/dL POC Glucose 164 H 159 H 188 H (70-105) Calcium (8.4-10.2) mg/dL Total Bilirubin (0.1-1.2) mg/dL AST (5-40) units/L ALT (7-56) units/L Alkaline Phosphatase (35-129) units/L Total Protein (6.3-8.2) g/dL Albumin (3.9-5) g/dL Prealbumin (0.200-0.400) g/L 06/11/19 06/11/19 06/11/19 Range/Units 00:22 05:58 06:53 Sodium 135 L (137-145) mmol/L Chloride 95.7 L (98-107) mmol/L Carbon Dioxide 33 H (22-30) mmol/L BUN 36 H (9-20) mg/dL Creatinine 0.7 L (0.8-1.5) mg/dL Glucose 155 H (75-100) mg/dL POC Glucose 198 H (70-105) Calcium 7.7 L (8.4-10.2) mg/dL Total Bilirubin 4.10 H (0.1-1.2) mg/dL AST 89 H (5-40) units/L ALT 77 H (7-56) units/L Alkaline Phosphatase 154 H (35-129) units/L Total Protein 5.3 L (6.3-8.2) g/dL Albumin 1.7 L (3.9-5) g/dL Prealbumin 0.106 L (0.200-0.400) g/L 06/11/19 Range/Units 11:17 Sodium (137-145) mmol/L Chloride (98-107) mmol/L Carbon Dioxide (22-30) mmol/L BUN (9-20) mg/dL Creatinine (0.8-1.5) mg/dL Glucose (75-100) mg/dL POC Glucose 157 H (70-105) Calcium (8.4-10.2) mg/dL Total Bilirubin (0.1-1.2) mg/dL AST (5-40) units/L ALT (7-56) units/L Alkaline Phosphatase (35-129) units/L Total Protein (6.3-8.2) g/dL Albumin (3.9-5) g/dL Prealbumin (0.200-0.400) g/L
--- NOTE | 2019-06-11 14:47 | Progress Note ---
Assessment and Plan Perforated gastric ulcer. - - General surgery consulted for perforated bowel - s/p exploratory laparotomy, omental patch of perforated gastric ulcer by Dr. Sims, Surgeon, POD 2 - cont empiric abx, on TPN - advanced to GI soft diet Sepsis with bilateral lower extremity cellulitis/infected ulcer and perforated bowel - Continue empiric antibiotics, obtain blood cultures, wound culture - Wound care consult placed, and following -ID Physician following bilateral lower extremity cellulitis/infected ulcer - from PVD - s/p bilateral I and D done 06/[address] Oakes -Amputation recommended but he has not consented - plan for another debridement tomorrow Moderate b/l pleural effusion CHFrEF 10-15% - Cardiology consulted - monitor ins/os, daily lasix iv to prevent fluid overload Chronic systolic CHF cardiology following Severe protein calorie malnutrition - nutrition consult, may need TPN CKD stage III, monitor renal function, avoid nephrotoxin - renal function stable Jaundice Elevated bilirubin, Total Bili of 7.7 Consult GI. cont to monitor clinically Severe metabolic acidosis likely due to perforated bowel - bicarbonate as needed Acute respiratory failure following surgery - CC following, cont nebs, -Extubated 06/05 - Provide GI and DVT prophylaxis Discussed with Dr. Issa. OK to give Heparin subcut Disposition: PT recommended LTAC brief History: Patient is a 63 yo man with a history of NICMP, chronic HFrEF 10-15%, NSVT declines LifeVest/AICD, CKD 3, HTN and mod to severe TR, b/l LE wounds, bedbound who presents to [facility] ED with c/o abdominal pain for 3 days. He had multiple bilateral lower extremity wound and stage I to 2 lower extremity ulcer covered with pus. CT abdomen and pelvis suggestive of pneumoperitoneum. General surgery was consulted and patient was taken for OR for exploratory laparotomy by general surgeon. He also received empiric antibiotics. He was intubated per-operatively,extubated 06/05, transferred to Surgical floor. He is improving , now on GI soft diet. Surgery wants to cont TPN as long as he is in the hospital Hospitalist Physical Gen: Not in acute distress, lying in bed, Jaundiced HEENT: Normocephalic, atraumatic Neck: supple, no JVD Heart: S1 and S2 reg, no murmurs, rubs or gallop Lungs: Clear to auscultation bilaterally, Abd: soft, NT, dry wound dry, small non healing abdominal wall wound where surgical drain was removed, Ext: Dressing over wounds both legs, Black toes both feet, swelling both upper and lower ext, Neuro: awake,alert,oriented, moves all ext Subjective Date of service: 06/11/19 Principal diagnosis: elevated LFTs Interval history: Patient seen and examined doing better patient on TPN, tolerating diet but poor intake Objective - Constitutional Vitals: Vital Signs - 12hr 06/11/19 06/11/19 06/11/19 04:00 05:02 07:06 Temperature 98.2 F 98.0 F Pulse Rate 115 H 115 H Pulse Rate [ 109 H Anterior Bilateral Throughout] Respiratory 17 18 Rate Respiratory 20 Rate [Anterior Bilateral Throughout] Blood Pressure 121/83 123/77 O2 Sat by Pulse 94 99 Oximetry 06/11/19 07:49 Temperature Pulse Rate Pulse Rate [ 114 H Anterior Bilateral Throughout] Respiratory Rate Respiratory 18 Rate [Anterior Bilateral Throughout] Blood Pressure O2 Sat by Pulse 94 Oximetry - Labs CBC & Chem 7: 06/10/19 09:25 06/12/19 05:27 Labs: Abnormal lab results 06/10/19 06/10/19 06/10/19 Range/Units 16:38 21:11 23:23 Sodium (137-145) mmol/L Chloride (98-107) mmol/L Carbon Dioxide (22-30) mmol/L BUN (9-20) mg/dL Creatinine (0.8-1.5) mg/dL Glucose (75-100) mg/dL POC Glucose 164 H 159 H 188 H (70-105) Calcium (8.4-10.2) mg/dL Total Bilirubin (0.1-1.2) mg/dL AST (5-40) units/L ALT (7-56) units/L Alkaline Phosphatase (35-129) units/L Total Protein (6.3-8.2) g/dL Albumin (3.9-5) g/dL Prealbumin (0.200-0.400) g/L 06/11/19 06/11/19 06/11/19 Range/Units 00:22 05:58 06:53 Sodium 135 L (137-145) mmol/L Chloride 95.7 L (98-107) mmol/L Carbon Dioxide 33 H (22-30) mmol/L BUN 36 H (9-20) mg/dL Creatinine 0.7 L (0.8-1.5) mg/dL Glucose 155 H (75-100) mg/dL POC Glucose 198 H (70-105) Calcium 7.7 L (8.4-10.2) mg/dL Total Bilirubin 4.10 H (0.1-1.2) mg/dL AST 89 H (5-40) units/L ALT 77 H (7-56) units/L Alkaline Phosphatase 154 H (35-129) units/L Total Protein 5.3 L (6.3-8.2) g/dL Albumin 1.7 L (3.9-5) g/dL Prealbumin 0.106 L (0.200-0.400) g/L 06/11/19 Range/Units 11:17 Sodium (137-145) mmol/L Chloride (98-107) mmol/L Carbon Dioxide (22-30) mmol/L BUN (9-20) mg/dL Creatinine (0.8-1.5) mg/dL Glucose (75-100) mg/dL POC Glucose 157 H (70-105) Calcium (8.4-10.2) mg/dL Total Bilirubin (0.1-1.2) mg/dL AST (5-40) units/L ALT (7-56) units/L Alkaline Phosphatase (35-129) units/L Total Protein (6.3-8.2) g/dL Albumin (3.9-5) g/dL Prealbumin (0.200-0.400) g/L
[2019-06-11] MEDS: SODIUM HYPOCHLORITE, DAKIN'S 1/2 STRENGTH (0.25%) 473 ML TOPICAL SOLN TP SCH ×2 (15:03→21:28)
[2019-06-11] MEDS ORDERED: ONDANSETRON 4 MG/2 ML INJ IV PRN (15:26)
[2019-06-11] MEDS ORDERED: TOTAL PARENTERAL NUTRITION 1,560 ML IV SCH (20:00)
[2019-06-11] MEDS: carvediloL 3.125 MG TAB PO SCH (21:31)
[2019-06-12] MEDS: IPRATROPIUM/ALBUTEROL SULFATE 3 ML AMPUL.NEB IH SCH ×4 (03:30→20:19)
[2019-06-12] MEDS: metroNIDAZOLE/NS 500 MG/100 ML 500 MG/100 ML BAG IV SCH ×3 (06:46→21:27)
[2019-06-12] MEDS: INSULIN LISPRO 100 UNIT/ML SUB-Q SCH ×4 (06:47→18:06)
[2019-06-12 06:48] LABS: BUN/Creatinine Ratio 43; Blood Urea Nitrogen 39 mg/dL (9-20); Calcium 8.3 mg/dL (8.4-10.2); Hemolysis Index 0
[2019-06-12] MEDS: HEPARIN 5,000 UNIT/1 ML VIAL SUB-Q SCH ×3 (06:49→21:28)
[2019-06-12] MEDS: HYDROmorphone 1 MG/1 ML INJ IV PRN ×2 (06:56→12:27)
[2019-06-12] MEDS: CEFEPIME/NS 2 GM/100 ML 2 GM/100 ML BAG IV SCH ×2 (08:00→18:07)
[2019-06-12] MEDS: FUROSEMIDE 40 MG TAB PO SCH (08:01)
[2019-06-12] MEDS: oxyCODONE 5 MG TAB PO PRN ×2 (08:31→15:35)
[2019-06-12] MEDS: ARFORMOTEROL 15 MCG/2 ML NEBU IH SCH ×2 (09:14→20:18)
[2019-06-12] MEDS: BUDESONIDE 0.5 MG/2 ML NEBU IH SCH ×2 (09:14→20:19)
--- NOTE | 2019-06-12 10:15 | Progress Note ---
Assessment and Plan 63 yo M s/p exploratory laparotomy, omental patch of perforated gastric ulcer POD 10 1. sepsis 2. perforated gastric ulcer 3. severe malnutrition 4. b/l pleural effusions 5. bedbound 6. infected b/l LE wounds with likely chronic limb ischemia 7. cardiomyopathy 8. CHF Arterial duplex - no arterial disease Plan: 1. prn PO pain control - oxycodone 2. DVT ppx 3. Protonix IV BID 4. no NSAIDs 5. continue full liquids, patient seemed to be tolerating fulls better. continue TPN - PAL is low and patient will benefit from additional nutrition in the post op period - can dc upon discharge. Race Engine Builder notes reviewed and in agreement to continue TPN and oral diet. Patient again counselled on sitting up while eating or drinking to prevent aspiration. 6. IS/pulm toilet 7. OOB with PT 8. IV abx per ID 9. Keep TANESHA site with alginate and dry dressing - discussed with RN 10. Educated on IS and pulmonary toilet Case management working on placement. May discharge from surgery standpoint when bed is available at acute rehab. Patient may be weaned off of TPN day before discharge Please call with questions. Subjective Date of service: 06/12/19 Narrative: Pt seen and examined. No acute complaints. Less pain today. No f/c. Tolerating full liquid diet. Continues to lay almost flat while drinking liquids despite being counselled to sit up. Objective Vital Signs - 12hr 06/12/19 06/12/19 06/12/19 00:00 04:45 06:56 Temperature 98.1 F 97.4 F L Pulse Rate 110 H 106 H Pulse Rate [ Anterior Bilateral Throughout] Respiratory 17 17 17 Rate Respiratory Rate [Anterior Bilateral Throughout] Blood Pressure 107/76 118/83 O2 Sat by Pulse 95 100 Oximetry 06/12/19 06/12/19 06/12/19 08:03 09:15 09:33 Temperature 97.7 F Pulse Rate 107 H Pulse Rate [ 102 H Anterior Bilateral Throughout] Respiratory 18 Rate Respiratory 20 Rate [Anterior Bilateral Throughout] Blood Pressure 112/77 O2 Sat by Pulse 100 98 Oximetry - General physical appearance Narrative Exam: Gen: AAOx3. NAD CV: s1, S2+ Resp: even and unlabored Abd: soft, NT, ND. R sided wound healing well with dry dressing in place. Ext: no c/c/e - Labs 06/10/19 09:25 06/12/19 05:27 Diabetes panel 06/12/19 Range/Units 05:27 Sodium 136 L (137-145) mmol/L Potassium 4.8 (3.6-5.0) mmol/L Chloride 95.6 L (98-107) mmol/L Carbon Dioxide 29 (22-30) mmol/L BUN 39 H (9-20) mg/dL Creatinine 0.9 (0.8-1.5) mg/dL Glucose 144 H (75-100) mg/dL Calcium 8.3 L (8.4-10.2) mg/dL Calcium panel 06/12/19 Range/Units 05:27 Calcium 8.3 L (8.4-10.2) mg/dL Phosphorus 3.70 (2.5-4.5) mg/dL Pituitary panel 06/12/19 Range/Units 05:27 Sodium 136 L (137-145) mmol/L Potassium 4.8 (3.6-5.0) mmol/L Chloride 95.6 L (98-107) mmol/L Carbon Dioxide 29 (22-30) mmol/L BUN 39 H (9-20) mg/dL Creatinine 0.9 (0.8-1.5) mg/dL Glucose 144 H (75-100) mg/dL Calcium 8.3 L (8.4-10.2) mg/dL Adrenal panel 06/12/19 Range/Units 05:27 Sodium 136 L (137-145) mmol/L Potassium 4.8 (3.6-5.0) mmol/L Chloride 95.6 L (98-107) mmol/L Carbon Dioxide 29 (22-30) mmol/L BUN 39 H (9-20) mg/dL Creatinine 0.9 (0.8-1.5) mg/dL Glucose 144 H (75-100) mg/dL Calcium 8.3 L (8.4-10.2) mg/dL
--- NOTE | 2019-06-12 11:09 | Progress Note ---
Assessment and Plan Pt appears to be clinically improving. Currently stable cardiac status. Cont present cardiac management. The patient has been seen in conjunction with Dr. Melia Baird who agrees with the assessment and plan of care. - Patient Problems (1) Pneumoperitoneum Current Visit: Yes Status: Acute (2) Sepsis Current Visit: Yes Status: Acute Qualifiers: Sepsis type: sepsis due to unspecified organism Sepsis acute organ dysfunction status: unspecified Qualified Code(s): A41.9 - Sepsis, unspecified organism (3) Chronic HFrEF (heart failure with reduced ejection fraction) Current Visit: Yes Status: Chronic (4) Nonischemic cardiomyopathy Current Visit: Yes Status: Chronic convert IV lopressor (5) Sinus node dysfunction Current Visit: Yes Status: Chronic (6) NSVT (nonsustained ventricular tachycardia) Current Visit: Yes Status: Chronic (7) HTN (hypertension) Current Visit: Yes Status: Chronic Qualifiers: Hypertension type: essential hypertension Qualified Code(s): I10 - Essential (primary) hypertension (8) Pulmonary hypertension Current Visit: Yes Status: Chronic (9) PAD (peripheral artery disease) Current Visit: Yes Status: Chronic (10) Anemia Current Visit: Yes Status: Acute Subjective Date of service: 06/12/19 Principal diagnosis: elevated LFTs Interval history: pt resting in bed, alert, states he is feeling better today, tolerating his diet. in ST with HR 110s, no acute events noted overnight. no family at bedside. Objective Last Vital Signs Temp 97.7 F 06/12/19 08:03 Pulse 102 H 06/12/19 09:33 Resp 20 06/12/19 09:33 BP 112/77 06/12/19 08:03 Pulse Ox 98 06/12/19 09:15 - Physical Examination General: No Apparent Distress HEENT: Positive: EOMI, Normocephaly, Mucus Membranes Moist Neck: Positive: neck supple, trachea midline, Carotid Upstroke (full) Cardiac: Positive: Regular Rhythm, S1/S2 Lungs: Positive: Decreased Breath Sounds Neuro: Positive: Grossly Intact Abdomen: Positive: Soft /Rectal: Other (Urine dark yellow) Skin: Positive: Other (abdominal surgical wounds, multiple wounds on both lower extremities with areas of ischemic ulceration.) Musculoskeletal: Normal Range of Motion Extremities: Present: lower extr. pulses (LLE difficult to palpate d/t wound dressing and ischemic ulceration), Other (LLE - pulse difficult to palpate d/t wounds ) - Labs and Meds Comprehensive Metabolic Panel 06/12/19 Range/Units 05:27 Sodium 136 L (137-145) mmol/L Potassium 4.8 (3.6-5.0) mmol/L Chloride 95.6 L (98-107) mmol/L Carbon Dioxide 29 (22-30) mmol/L BUN 39 H (9-20) mg/dL Creatinine 0.9 (0.8-1.5) mg/dL Glucose 144 H (75-100) mg/dL Calcium 8.3 L (8.4-10.2) mg/dL - Imaging and Cardiology EKG: image reviewed Echo: report reviewed (02/28/19 showed EF of 10-15%, dilation of all chambers, moderate AR, moderate to severe TR and RV hypokinesis. ) Cardiac cath: report reviewed (04/2017 showed patent coronaries, EF 10-15%. ) - EKG Sinus rhythms and dysrhythmias: sinus rhythm Chamber hypertrophy or enlargement: left ventricular hypertro Repolarization changes or abnormalities: repolarization abn secondary to ventricular hypertrophy Myocardial infarction: septal OR (old age or ind
[2019-06-12] MEDS: PANTOPRAZOLE 40 MG INJ IV SCH ×2 (12:00→21:27)
[2019-06-12] MEDS: LOSARTAN 25 MG TAB PO SCH (12:01)
[2019-06-12] MEDS: carvediloL 3.125 MG TAB PO SCH ×2 (12:02→21:27)
[2019-06-12] MEDS: FLUCONAZOLE 400 MG 200 ML IV SCH (12:05)
--- NOTE | 2019-06-12 12:12 | Progress Note ---
Assessment and Plan Cultures: Blood culture 06/02/19 no growth to date Urine culture 06/02/19 no growth to date Surgical culture 06/02/19 Suni albicans Wound culture right foot 06/02/2019 - PsA, Morganella Surgical foot culture Left 06/05/2019 - P mirabilis Surgical foot culture right 06/05/2019 - P mirabilis Assessment: 63 yo M with severe non ischemic cardiomyopathy and heart failure, chronic bilateral wounds admitted with small perforated gastric ulcer. 1. Acute sepsis: POA. Likely secondary to perforated gastric ulcer and infected chronic wounds on LE. 2. Infected bilateral infected wounds - chronic with worsening. He has significant CHF and likely perfusion compromise. Concern for the viability of these limbs. Surgery has also evaluated. patient has refused amputation. His LE wounds are not curable. This was explained to him at length by Dr. Dos Santos. 3. Perforated gastric ulcer: s/p surgery: exploratory laparotomy, omental patch of perforated gastric ulcer. 4. Elevated bilirubin: GI following. Cholestasis, thought to be related to congestive heart failure and TPN. Recs: - will discontinue Fluconazole - continue cefepime and metronidazole given plans for additional debridement by Dr. Oakes - when ready for discharge, would do a short course of PO abx: Levofloxacin to complete 7 days from last debridement - continue wound care Diamond Cohen MD, FACP [facility] C: [phone] O: [phone] F: [phone] Subjective Date of service: 06/12/19 Principal diagnosis: elevated LFTs Interval history: Denies fever. got PICC line placed. No new complaints. Objective - Exam Narrative Exam: Physical Exam: Constitutional: Alert, cooperative. No acute distress Head, Ears, Nose: Normocephalic, atraumatic. External ears, nose normal Eyes: Conjunctivae/corneas clear. No ptosis. Neck: Supple, no meningeal signs Oral: dentition poor, no thrush Cardiovascular: S1, S2 normal. Respiratory: Good air entry, clear to auscultation bilaterally GI: Soft, non-tender; bowel sounds normal. Midline incision healing well. R lateral wall with dressing Musculoskeletal: b/l LE with extensive wounds and drainage Skin: No rash or abscess Hem/Lymphatic: No palpable cervical or supraclavicular nodes. No lymphangitis Psych: Mood ok. Affect flat Neurological: Awake, alert, oriented. - Constitutional Vitals: Vital Signs Temp Pulse Resp BP Pulse Ox 98.0 F 113 H 18 113/78 100 06/12/19 11:52 06/12/19 11:52 06/12/19 11:52 06/12/19 12:02 06/12/19 11:52 Temperature -Last 24 Hours Temperature 98.0 F Temperature 97.7 F Temperature 97.4 F Temperature 98.1 F Temperature 98.3 F Temperature 97.7 F - Labs CBC & Chem 7: 06/10/19 09:25 06/12/19 05:27 Labs: Abnormal lab results 06/11/19 06/12/19 06/12/19 Range/Units 16:21 00:17 05:27 Sodium 136 L (137-145) mmol/L Chloride 95.6 L (98-107) mmol/L BUN 39 H (9-20) mg/dL Glucose 144 H (75-100) mg/dL POC Glucose 190 H 139 H (70-105) Calcium 8.3 L (8.4-10.2) mg/dL 06/12/19 06/12/19 Range/Units 06:27 11:52 Sodium (137-145) mmol/L Chloride (98-107) mmol/L BUN (9-20) mg/dL Glucose (75-100) mg/dL POC Glucose 169 H 146 H (70-105) Calcium (8.4-10.2) mg/dL
[2019-06-12] MEDS ORDERED: LIDOCAINE (4%) 40 MG/ML TOPICAL SOLN 50 ML BOTTLE TP NR (12:30)
[2019-06-12] MEDS ORDERED: LIDOCAINE (4%) 40 MG/ML TOPICAL SOLN 50 ML BOTTLE TP ONE (12:30)
--- NOTE | 2019-06-12 13:38 | Post Operative Note ---
Pre-op diagnosis: 1) Necrotic bilateral foot wounds 2) Left leg wound with exposed tendon Post-op diagnosis: same Procedure: Debridement of bilateral foot wounds (SQ) & debridement of left leg wound (fascia) with scissors, forceps and curette. Final wound measurements: 1) Left anterior leg - 15 X 8.5 X 0.7 cm 2) Left dorsal foot - 8 X 7.5 X 0.5 cm 3) Right dorsal foot - 8 X 5.5 X 0.4 cm Anesthesia: other (Topical 4% Lidocaine) Surgeon: JUAN BEARDEN Estimated blood loss: minimal Pathology: none Specimen disposition: discarded Condition: stable Disposition: no change
--- NOTE | 2019-06-12 14:02 | Progress Note ---
Assessment and Plan 1. Incentive spirometry 2. Reviewed ID note 3. Wean FiO2 for sats >88% 4. Will continue to follow. Overall prognosis appears guarded to poor Subjective Date of service: 06/12/19 Principal diagnosis: elevated LFTs Interval history: Remains on 2 liters but sats stable. Objective Vital Signs - 12hr 06/12/19 06/12/19 06/12/19 04:45 06:56 08:03 Temperature 97.4 F L 97.7 F Pulse Rate 106 H 107 H Pulse Rate [ Anterior Bilateral Throughout] Respiratory 17 17 18 Rate Respiratory Rate [Anterior Bilateral Throughout] Blood Pressure 118/83 112/77 O2 Sat by Pulse 100 100 Oximetry 06/12/19 06/12/19 06/12/19 09:15 09:33 11:52 Temperature 98.0 F Pulse Rate 113 H Pulse Rate [ 102 H Anterior Bilateral Throughout] Respiratory 18 Rate Respiratory 20 Rate [Anterior Bilateral Throughout] Blood Pressure 105/76 O2 Sat by Pulse 98 100 Oximetry 06/12/19 06/12/19 12:01 12:02 Temperature Pulse Rate Pulse Rate [ Anterior Bilateral Throughout] Respiratory Rate Respiratory Rate [Anterior Bilateral Throughout] Blood Pressure 113/76 113/78 O2 Sat by Pulse Oximetry Constitutional: no acute distress, alert Eyes: non-icteric ENT: oropharynx moist Neck: supple Effort: normal Ascultation: Bilateral: clear, other (coarse BS bilaterally) Cardiovascular: regular rate and rhythm (no mrg) Gastrointestinal: absent bowel sounds, non-tender Integumentary: other (necrotic ulcers lower extremities) Extremities: no cyanosis, edema (1+ generalized edema) Neurologic: normal mental status, non-focal exam Psychiatric: mood appropriate, affect normal CBC and BMP: 06/10/19 09:25 06/12/19 05:27 ABG, PT/INR, D-dimer: ABG POC ABG pH 7.508 (7.35-7.45) H 06/07/19 09:44 POC ABG pCO2 41.5 (35-45) 06/07/19 09:44 POC ABG pO2 75 (80-105) L 06/07/19 09:44 POC ABG HCO3 33.0 (22-26 mml/L) 06/07/19 09:44 POC ABG Total CO2 34 (23-27mmol/L) 06/07/19 09:44 POC ABG O2 Sat 96 06/07/19 09:44 PT/INR, D-dimer PT 17.9 Sec. (12.2-14.9) H 06/02/19 07:15 INR 1.50 (0.87-1.13) H 06/02/19 07:15 Abnormal lab findings: Abnormal Labs 06/02/19 06/02/19 06/02/19 07:15 07:15 07:15 WBC 21.0 H RBC 5.17 H Hgb Hct MCH 27 L RDW 23.8 H Seg Neuts % (Manual) 97.0 H Lymphocytes % (Manual) 1.0 L Nucleated RBC % 3.0 H Seg Neutrophils # Man 20.4 H Lymphocytes # (Manual) 0.2 L PT 17.9 H INR 1.50 H POC ABG pH POC ABG pCO2 POC ABG pO2 VBG pH Sodium 130 L Chloride 97.1 L Carbon Dioxide 16 L BUN 47 H Creatinine Glucose 139 H POC Glucose Lactic Acid Calcium Phosphorus Magnesium Total Bilirubin 6.40 H Direct Bilirubin 4.5 H AST 50 H ALT Alkaline Phosphatase 179 H Ammonia Total Creatine Kinase 53 L CK-MB (CK-2) 5.1 H CK-MB (CK-2) Rel Index 9.6 H Troponin T NT-Pro-B Natriuret Pep > 32359 H Total Protein 5.8 L Albumin 2.1 L Prealbumin LDL Cholesterol Direct HDL Cholesterol Vancomycin Trough 06/02/19 06/02/19 06/02/19 07:15 07:15 07:15 WBC RBC Hgb Hct MCH RDW Seg Neuts % (Manual) Lymphocytes % (Manual) Nucleated RBC % Seg Neutrophils # Man Lymphocytes # (Manual) PT INR POC ABG pH POC ABG pCO2 POC ABG pO2 VBG pH 7.310 L Sodium Chloride Carbon Dioxide BUN Creatinine Glucose POC Glucose Lactic Acid 2.40 H* Calcium Phosphorus Magnesium Total Bilirubin Direct Bilirubin AST ALT Alkaline Phosphatase Ammonia 16.0 L Total Creatine Kinase CK-MB (CK-2) CK-MB (CK-2) Rel Index Troponin T NT-Pro-B Natriuret Pep Total Protein Albumin Prealbumin LDL Cholesterol Direct HDL Cholesterol Vancomycin Trough 06/02/19 06/02/19 06/02/19 07:15 15:33 15:53 WBC RBC Hgb Hct MCH RDW Seg Neuts % (Manual) Lymphocytes % (Manual) Nucleated RBC % Seg Neutrophils # Man Lymphocytes # (Manual) PT INR POC ABG pH 7.229 L POC ABG pCO2 49.5 H POC ABG pO2 VBG pH Sodium Chloride Carbon Dioxide BUN Creatinine Glucose POC Glucose 66 L Lactic Acid Calcium Phosphorus Magnesium Total Bilirubin Direct Bilirubin AST ALT Alkaline Phosphatase Ammonia Total Creatine Kinase CK-MB (CK-2) CK-MB (CK-2) Rel Index Troponin T 0.065 H NT-Pro-B Natriuret Pep Total Protein Albumin Prealbumin LDL Cholesterol Direct 31 L HDL Cholesterol 8 L Vancomycin Trough 06/02/19 06/02/19 06/03/19 16:40 17:10 04:06 WBC RBC Hgb Hct MCH RDW Seg Neuts % (Manual) Lymphocytes % (Manual) Nucleated RBC % Seg Neutrophils # Man Lymphocytes # (Manual) PT INR POC ABG pH 7.259 L POC ABG pCO2 33.9 L POC ABG pO2 221 H 146 H VBG pH Sodium Chloride Carbon Dioxide BUN Creatinine Glucose POC Glucose 151 H Lactic Acid Calcium Phosphorus Magnesium Total Bilirubin Direct Bilirubin AST ALT Alkaline Phosphatase Ammonia Total Creatine Kinase CK-MB (CK-2) CK-MB (CK-2) Rel Index Troponin T NT-Pro-B Natriuret Pep Total Protein Albumin Prealbumin LDL Cholesterol Direct HDL Cholesterol Vancomycin Trough 06/03/19 06/03/19 06/03/19 04:41 04:41 17:23 WBC 17.5 H RBC Hgb Hct MCH 27 L RDW 25.0 H Seg Neuts % (Manual) 96.0 H Lymphocytes % (Manual) 0 L Nucleated RBC % 1.0 H Seg Neutrophils # Man 16.8 H Lymphocytes # (Manual) 0.0 L PT INR POC ABG pH POC ABG pCO2 POC ABG pO2 VBG pH Sodium Chloride Carbon Dioxide 17 L BUN 42 H Creatinine Glucose 59 L POC Glucose 113 H Lactic Acid Calcium Phosphorus Magnesium Total Bilirubin 7.00 H Direct Bilirubin AST ALT Alkaline Phosphatase 153 H Ammonia Total Creatine Kinase CK-MB (CK-2) CK-MB (CK-2) Rel Index Troponin T NT-Pro-B Natriuret Pep Total Protein 5.9 L Albumin 1.7 L Prealbumin LDL Cholesterol Direct HDL Cholesterol Vancomycin Trough 06/03/19 06/04/19 06/04/19 23:37 05:10 05:10 WBC 16.7 H RBC Hgb Hct MCH 27 L RDW 24.5 H Seg Neuts % (Manual) 94.0 H Lymphocytes % (Manual) 3.0 L Nucleated RBC % Seg Neutrophils # Man 15.7 H Lymphocytes # (Manual) 0.5 L PT INR POC ABG pH POC ABG pCO2 POC ABG pO2 VBG pH Sodium Chloride Carbon Dioxide BUN 39 H Creatinine Glucose 136 H POC Glucose 126 H Lactic Acid Calcium 8.3 L Phosphorus Magnesium 1.30 L Total Bilirubin 7.70 H Direct Bilirubin AST ALT Alkaline Phosphatase 140 H Ammonia Total Creatine Kinase CK-MB (CK-2) CK-MB (CK-2) Rel Index Troponin T NT-Pro-B Natriuret Pep Total Protein 5.6 L Albumin 1.7 L Prealbumin LDL Cholesterol Direct HDL Cholesterol Vancomycin Trough 06/04/19 06/04/19 06/04/19 05:44 13:50 18:05 WBC RBC Hgb Hct MCH RDW Seg Neuts % (Manual) Lymphocytes % (Manual) Nucleated RBC % Seg Neutrophils # Man Lymphocytes # (Manual) PT INR POC ABG pH POC ABG pCO2 POC ABG pO2 VBG pH Sodium Chloride Carbon Dioxide BUN Creatinine Glucose POC Glucose 124 H 137 H 120 H Lactic Acid Calcium Phosphorus Magnesium Total Bilirubin Direct Bilirubin AST ALT Alkaline Phosphatase Ammonia Total Creatine Kinase CK-MB (CK-2) CK-MB (CK-2) Rel Index Troponin T NT-Pro-B Natriuret Pep Total Protein Albumin Prealbumin LDL Cholesterol Direct HDL Cholesterol Vancomycin Trough 06/05/19 06/05/19 06/05/19 00:58 04:20 04:20 WBC 15.0 H RBC Hgb Hct MCH 27 L RDW 25.0 H Seg Neuts % (Manual) Lymphocytes % (Manual) Nucleated RBC % Seg Neutrophils # Man Lymphocytes # (Manual) PT INR POC ABG pH POC ABG pCO2 POC ABG pO2 VBG pH Sodium Chloride Carbon Dioxide BUN 52 H Creatinine Glucose 137 H POC Glucose 114 H Lactic Acid Calcium 7.8 L Phosphorus Magnesium Total Bilirubin Direct Bilirubin AST ALT Alkaline Phosphatase Ammonia Total Creatine Kinase CK-MB (CK-2) CK-MB (CK-2) Rel Index Troponin T NT-Pro-B Natriuret Pep Total Protein Albumin Prealbumin LDL Cholesterol Direct HDL Cholesterol Vancomycin Trough 06/05/19 06/05/19 06/05/19 05:39 05:45 09:45 WBC RBC Hgb Hct MCH RDW Seg Neuts % (Manual) Lymphocytes % (Manual) Nucleated RBC % Seg Neutrophils # Man Lymphocytes # (Manual) PT INR POC ABG pH POC ABG pCO2 POC ABG pO2 108 H VBG pH Sodium Chloride Carbon Dioxide BUN Creatinine Glucose POC Glucose 111 H Lactic Acid Calcium Phosphorus Magnesium Total Bilirubin Direct Bilirubin AST ALT Alkaline Phosphatase Ammonia Total Creatine Kinase CK-MB (CK-2) CK-MB (CK-2) Rel Index Troponin T NT-Pro-B Natriuret Pep Total Protein Albumin Prealbumin LDL Cholesterol Direct HDL Cholesterol Vancomycin Trough 20.1 H 06/05/19 06/05/19 06/06/19 13:25 18:27 00:01 WBC RBC Hgb Hct MCH RDW Seg Neuts % (Manual) Lymphocytes % (Manual) Nucleated RBC % Seg Neutrophils # Man Lymphocytes # (Manual) PT INR POC ABG pH POC ABG pCO2 POC ABG pO2 VBG pH Sodium Chloride Carbon Dioxide BUN Creatinine Glucose POC Glucose 152 H 194 H 153 H Lactic Acid Calcium Phosphorus Magnesium Total Bilirubin Direct Bilirubin AST ALT Alkaline Phosphatase Ammonia Total Creatine Kinase CK-MB (CK-2) CK-MB (CK-2) Rel Index Troponin T NT-Pro-B Natriuret Pep Total Protein Albumin Prealbumin LDL Cholesterol Direct HDL Cholesterol Vancomycin Trough 06/06/19 06/06/19 06/06/19 04:20 05:45 12:32 WBC RBC Hgb Hct MCH RDW Seg Neuts % (Manual) Lymphocytes % (Manual) Nucleated RBC % Seg Neutrophils # Man Lymphocytes # (Manual) PT INR POC ABG pH POC ABG pCO2 POC ABG pO2 VBG pH Sodium Chloride Carbon Dioxide BUN 62 H Creatinine Glucose 141 H POC Glucose 161 H 131 H Lactic Acid Calcium 7.7 L Phosphorus 2.40 L Magnesium Total Bilirubin Direct Bilirubin AST ALT Alkaline Phosphatase Ammonia Total Creatine Kinase CK-MB (CK-2) CK-MB (CK-2) Rel Index Troponin T NT-Pro-B Natriuret Pep Total Protein Albumin Prealbumin LDL Cholesterol Direct HDL Cholesterol Vancomycin Trough 06/07/19 06/07/19 06/07/19 02:07 05:36 05:36 WBC 25.3 H RBC Hgb 10.8 L Hct 33.7 L MCH 27 L RDW 26.7 H Seg Neuts % (Manual) Lymphocytes % (Manual) Nucleated RBC % Seg Neutrophils # Man Lymphocytes # (Manual) PT INR POC ABG pH POC ABG pCO2 POC ABG pO2 VBG pH Sodium 135 L Chloride 93.6 L Carbon Dioxide BUN 58 H Creatinine Glucose 131 H POC Glucose 165 H Lactic Acid Calcium 8.0 L Phosphorus Magnesium Total Bilirubin Direct Bilirubin AST ALT Alkaline Phosphatase Ammonia Total Creatine Kinase CK-MB (CK-2) CK-MB (CK-2) Rel Index Troponin T NT-Pro-B Natriuret Pep Total Protein Albumin Prealbumin LDL Cholesterol Direct HDL Cholesterol Vancomycin Trough 06/07/19 06/07/19 06/07/19 09:44 18:05 23:51 WBC RBC Hgb Hct MCH RDW Seg Neuts % (Manual) Lymphocytes % (Manual) Nucleated RBC % Seg Neutrophils # Man Lymphocytes # (Manual) PT INR POC ABG pH 7.508 H POC ABG pCO2 POC ABG pO2 75 L VBG pH Sodium Chloride Carbon Dioxide BUN Creatinine Glucose POC Glucose 137 H 180 H Lactic Acid Calcium Phosphorus Magnesium Total Bilirubin Direct Bilirubin AST ALT Alkaline Phosphatase Ammonia Total Creatine Kinase CK-MB (CK-2) CK-MB (CK-2) Rel Index Troponin T NT-Pro-B Natriuret Pep Total Protein Albumin Prealbumin LDL Cholesterol Direct HDL Cholesterol Vancomycin Trough 06/08/19 06/08/19 06/08/19 05:07 05:07 06:26 WBC 25.1 H RBC 3.21 L Hgb 8.8 L Hct 27.3 L D MCH RDW 27.7 H Seg Neuts % (Manual) Lymphocytes % (Manual) Nucleated RBC % Seg Neutrophils # Man Lymphocytes # (Manual) PT INR POC ABG pH POC ABG pCO2 POC ABG pO2 VBG pH Sodium 134 L Chloride 97.2 L Carbon Dioxide BUN 49 H Creatinine 0.7 L Glucose 144 H POC Glucose 149 H Lactic Acid Calcium 7.7 L Phosphorus Magnesium Total Bilirubin Direct Bilirubin AST ALT Alkaline Phosphatase Ammonia Total Creatine Kinase CK-MB (CK-2) CK-MB (CK-2) Rel Index Troponin T NT-Pro-B Natriuret Pep Total Protein Albumin Prealbumin LDL Cholesterol Direct HDL Cholesterol Vancomycin Trough 06/08/19 06/08/19 06/09/19 11:18 17:43 00:04 WBC RBC Hgb Hct MCH RDW Seg Neuts % (Manual) Lymphocytes % (Manual) Nucleated RBC % Seg Neutrophils # Man Lymphocytes # (Manual) PT INR POC ABG pH POC ABG pCO2 POC ABG pO2 VBG pH Sodium Chloride Carbon Dioxide BUN Creatinine Glucose POC Glucose 134 H 153 H 161 H Lactic Acid Calcium Phosphorus Magnesium Total Bilirubin Direct Bilirubin AST ALT Alkaline Phosphatase Ammonia Total Creatine Kinase CK-MB (CK-2) CK-MB (CK-2) Rel Index Troponin T NT-Pro-B Natriuret Pep Total Protein Albumin Prealbumin LDL Cholesterol Direct HDL Cholesterol Vancomycin Trough 06/09/19 06/09/19 06/09/19 05:51 08:58 11:53 WBC RBC Hgb Hct MCH RDW Seg Neuts % (Manual) Lymphocytes % (Manual) Nucleated RBC % Seg Neutrophils # Man Lymphocytes # (Manual) PT INR POC ABG pH POC ABG pCO2 POC ABG pO2 VBG pH Sodium Chloride 97.1 L Carbon Dioxide BUN 40 H Creatinine 0.6 L Glucose 161 H POC Glucose 183 H 189 H Lactic Acid Calcium 7.9 L Phosphorus Magnesium Total Bilirubin Direct Bilirubin AST ALT Alkaline Phosphatase Ammonia Total Creatine Kinase CK-MB (CK-2) CK-MB (CK-2) Rel Index Troponin T NT-Pro-B Natriuret Pep Total Protein Albumin Prealbumin LDL Cholesterol Direct HDL Cholesterol Vancomycin Trough 06/09/19 06/10/19 06/10/19 17:30 05:00 08:36 WBC RBC Hgb Hct MCH RDW Seg Neuts % (Manual) Lymphocytes % (Manual) Nucleated RBC % Seg Neutrophils # Man Lymphocytes # (Manual) PT INR POC ABG pH POC ABG pCO2 POC ABG pO2 VBG pH Sodium Chloride Carbon Dioxide BUN Creatinine Glucose POC Glucose 145 H 173 H 119 H Lactic Acid Calcium Phosphorus Magnesium Total Bilirubin Direct Bilirubin AST ALT Alkaline Phosphatase Ammonia Total Creatine Kinase CK-MB (CK-2) CK-MB (CK-2) Rel Index Troponin T NT-Pro-B Natriuret Pep Total Protein Albumin Prealbumin LDL Cholesterol Direct HDL Cholesterol Vancomycin Trough 06/10/19 06/10/19 06/10/19 09:25 09:25 09:25 WBC 18.9 H RBC 2.61 L Hgb 7.3 L Hct 22.8 L MCH RDW 29.2 H Seg Neuts % (Manual) Lymphocytes % (Manual) Nucleated RBC % Seg Neutrophils # Man Lymphocytes # (Manual) PT INR POC ABG pH POC ABG pCO2 POC ABG pO2 VBG pH Sodium Chloride 95.5 L Carbon Dioxide 31 H BUN 38 H Creatinine Glucose 115 H POC Glucose Lactic Acid Calcium 7.8 L Phosphorus Magnesium Total Bilirubin 4.80 H Direct Bilirubin 3.7 H AST 127 H ALT 93 H Alkaline Phosphatase 180 H Ammonia Total Creatine Kinase CK-MB (CK-2) CK-MB (CK-2) Rel Index Troponin T NT-Pro-B Natriuret Pep Total Protein 5.3 L Albumin 1.5 L Prealbumin LDL Cholesterol Direct HDL Cholesterol Vancomycin Trough 06/10/19 06/10/19 06/10/19 11:23 16:38 21:11 WBC RBC Hgb Hct MCH RDW Seg Neuts % (Manual) Lymphocytes % (Manual) Nucleated RBC % Seg Neutrophils # Man Lymphocytes # (Manual) PT INR POC ABG pH POC ABG pCO2 POC ABG pO2 VBG pH Sodium Chloride Carbon Dioxide BUN Creatinine Glucose POC Glucose 175 H 164 H 159 H Lactic Acid Calcium Phosphorus Magnesium Total Bilirubin Direct Bilirubin AST ALT Alkaline Phosphatase Ammonia Total Creatine Kinase CK-MB (CK-2) CK-MB (CK-2) Rel Index Troponin T NT-Pro-B Natriuret Pep Total Protein Albumin Prealbumin LDL Cholesterol Direct HDL Cholesterol Vancomycin Trough 06/10/19 06/11/19 06/11/19 23:23 00:22 05:58 WBC RBC Hgb Hct MCH RDW Seg Neuts % (Manual) Lymphocytes % (Manual) Nucleated RBC % Seg Neutrophils # Man Lymphocytes # (Manual) PT INR POC ABG pH POC ABG pCO2 POC ABG pO2 VBG pH Sodium 135 L Chloride 95.7 L Carbon Dioxide 33 H BUN 36 H Creatinine 0.7 L Glucose 155 H POC Glucose 188 H Lactic Acid Calcium 7.7 L Phosphorus Magnesium Total Bilirubin 4.10 H Direct Bilirubin AST 89 H ALT 77 H Alkaline Phosphatase 154 H Ammonia Total Creatine Kinase CK-MB (CK-2) CK-MB (CK-2) Rel Index Troponin T NT-Pro-B Natriuret Pep Total Protein 5.3 L Albumin 1.7 L Prealbumin 0.106 L LDL Cholesterol Direct HDL Cholesterol Vancomycin Trough 06/11/19 06/11/19 06/11/19 06:53 11:17 16:21 WBC RBC Hgb Hct MCH RDW Seg Neuts % (Manual) Lymphocytes % (Manual) Nucleated RBC % Seg Neutrophils # Man Lymphocytes # (Manual) PT INR POC ABG pH POC ABG pCO2 POC ABG pO2 VBG pH Sodium Chloride Carbon Dioxide BUN Creatinine Glucose POC Glucose 198 H 157 H 190 H Lactic Acid Calcium Phosphorus Magnesium Total Bilirubin Direct Bilirubin AST ALT Alkaline Phosphatase Ammonia Total Creatine Kinase CK-MB (CK-2) CK-MB (CK-2) Rel Index Troponin T NT-Pro-B Natriuret Pep Total Protein Albumin Prealbumin LDL Cholesterol Direct HDL Cholesterol Vancomycin Trough 06/12/19 06/12/19 06/12/19 00:17 05:27 06:27 WBC RBC Hgb Hct MCH RDW Seg Neuts % (Manual) Lymphocytes % (Manual) Nucleated RBC % Seg Neutrophils # Man Lymphocytes # (Manual) PT INR POC ABG pH POC ABG pCO2 POC ABG pO2 VBG pH Sodium 136 L Chloride 95.6 L Carbon Dioxide BUN 39 H Creatinine Glucose 144 H POC Glucose 139 H 169 H Lactic Acid Calcium 8.3 L Phosphorus Magnesium Total Bilirubin Direct Bilirubin AST ALT Alkaline Phosphatase Ammonia Total Creatine Kinase CK-MB (CK-2) CK-MB (CK-2) Rel Index Troponin T NT-Pro-B Natriuret Pep Total Protein Albumin Prealbumin LDL Cholesterol Direct HDL Cholesterol Vancomycin Trough 06/12/19 11:52 WBC RBC Hgb Hct MCH RDW Seg Neuts % (Manual) Lymphocytes % (Manual) Nucleated RBC % Seg Neutrophils # Man Lymphocytes # (Manual) PT INR POC ABG pH POC ABG pCO2 POC ABG pO2 VBG pH Sodium Chloride Carbon Dioxide BUN Creatinine Glucose POC Glucose 146 H Lactic Acid Calcium Phosphorus Magnesium Total Bilirubin Direct Bilirubin AST ALT Alkaline Phosphatase Ammonia Total Creatine Kinase CK-MB (CK-2) CK-MB (CK-2) Rel Index Troponin T NT-Pro-B Natriuret Pep Total Protein Albumin Prealbumin LDL Cholesterol Direct HDL Cholesterol Vancomycin Trough
--- NOTE | 2019-06-12 15:04 | Progress Note ---
Assessment and Plan Perforated gastric ulcer. - - General surgery consulted for perforated bowel - s/p exploratory laparotomy, omental patch of perforated gastric ulcer by Dr. Sims, Surgeon, POD 2 - cont empiric abx, on TPN - advanced to GI soft diet Sepsis with bilateral lower extremity cellulitis/infected ulcer and perforated bowel - Continue empiric antibiotics, obtain blood cultures, wound culture - Wound care consult placed, and following -ID Physician following -when ready for discharge, change to Levofloxacin to complete 7 days from last debridement bilateral lower extremity cellulitis/infected ulcer - from PVD - s/p bilateral I and D done 06/[address] Oakes -Amputation recommended but he has not consented Moderate b/l pleural effusion CHFrEF 10-15% - Cardiology consulted - monitor ins/os, daily lasix iv to prevent fluid overload Chronic systolic CHF cardiology following Severe protein calorie malnutrition - nutrition consult, may need TPN CKD stage III, monitor renal function, avoid nephrotoxin - renal function stable Jaundice Elevated bilirubin, Total Bili of 7.7 Consult GI. cont to monitor clinically Severe metabolic acidosis likely due to perforated bowel - bicarbonate as needed Acute respiratory failure following surgery - CC following, cont nebs, -Extubated 06/05 - Provide GI and DVT prophylaxis Discussed with Dr. Issa. OK to give Heparin subcut Disposition: PT recommended LTAC - if not accepted then d/c with HH brief History: Patient is a 63 yo man with a history of NICMP, chronic HFrEF 10-15%, NSVT declines LifeVest/AICD, CKD 3, HTN and mod to severe TR, b/l LE wounds, bedbound who presents to [facility] ED with c/o abdominal pain for 3 days. He had multiple bilateral lower extremity wound and stage I to 2 lower extremity ulcer covered with pus. CT abdomen and pelvis suggestive of pneumoperitoneum. General surgery was consulted and patient was taken for OR for exploratory laparotomy by general surgeon. He also received empiric antibiotics. He was intubated per-operatively,extubated 06/05, transferred to Surgical floor. He is improving , now on GI soft diet. Surgery wants to cont TPN as long as he is in the hospital Hospitalist Physical Gen: Not in acute distress, lying in bed, Jaundiced HEENT: Normocephalic, atraumatic Neck: supple, no JVD Heart: S1 and S2 reg, no murmurs, rubs or gallop Lungs: Clear to auscultation bilaterally, Abd: soft, NT, dry wound dry, small non healing abdominal wall wound where surgical drain was removed, Ext: Dressing over wounds both legs, Black toes both feet, swelling both upper and lower ext, Neuro: awake,alert,oriented, moves all ext Subjective Date of service: 06/12/19 Principal diagnosis: elevated LFTs Interval history: Patient seen and examined doing better patient on TPN, tolerating diet but poor intake had bedside debridement today Objective - Constitutional Vitals: Vital Signs - 12hr 06/12/19 06/12/19 06/12/19 04:45 06:56 08:03 Temperature 97.4 F L 97.7 F Pulse Rate 106 H 107 H Pulse Rate [ Anterior Bilateral Throughout] Respiratory 17 17 18 Rate Respiratory Rate [Anterior Bilateral Throughout] Blood Pressure 118/83 112/77 O2 Sat by Pulse 100 100 Oximetry 06/12/19 06/12/19 06/12/19 09:15 09:33 10:00 Temperature Pulse Rate Pulse Rate [ 102 H Anterior Bilateral Throughout] Respiratory Rate Respiratory 20 Rate [Anterior Bilateral Throughout] Blood Pressure O2 Sat by Pulse 98 96 Oximetry 06/12/19 06/12/19 06/12/19 11:52 12:01 12:02 Temperature 98.0 F Pulse Rate 113 H Pulse Rate [ Anterior Bilateral Throughout] Respiratory 18 Rate Respiratory Rate [Anterior Bilateral Throughout] Blood Pressure 105/76 113/76 113/78 O2 Sat by Pulse 100 Oximetry 06/12/19 14:45 Temperature Pulse Rate Pulse Rate [ 98 H Anterior Bilateral Throughout] Respiratory Rate Respiratory 18 Rate [Anterior Bilateral Throughout] Blood Pressure O2 Sat by Pulse Oximetry - Labs CBC & Chem 7: 06/10/19 09:25 06/12/19 05:27 Labs: Abnormal lab results 06/11/19 06/12/19 06/12/19 Range/Units 16:21 00:17 05:27 Sodium 136 L (137-145) mmol/L Chloride 95.6 L (98-107) mmol/L BUN 39 H (9-20) mg/dL Glucose 144 H (75-100) mg/dL POC Glucose 190 H 139 H (70-105) Calcium 8.3 L (8.4-10.2) mg/dL 06/12/19 06/12/19 Range/Units 06:27 11:52 Sodium (137-145) mmol/L Chloride (98-107) mmol/L BUN (9-20) mg/dL Glucose (75-100) mg/dL POC Glucose 169 H 146 H (70-105) Calcium (8.4-10.2) mg/dL
[2019-06-12] MEDS: SODIUM HYPOCHLORITE, DAKIN'S 1/2 STRENGTH (0.25%) 473 ML TOPICAL SOLN TP SCH ×2 (15:06→22:57)
[2019-06-12] MEDS ORDERED: FAT EMULSIONS 20% 250 ML IV SCH (20:00)
[2019-06-12] MEDS ORDERED: TOTAL PARENTERAL NUTRITION 1,560 ML IV SCH (20:00)
[2019-06-13] MEDS: INSULIN LISPRO 100 UNIT/ML SUB-Q SCH ×3 (01:29→14:28)
[2019-06-13] MEDS: oxyCODONE 5 MG TAB PO PRN (01:30)
[2019-06-13] MEDS: IPRATROPIUM/ALBUTEROL SULFATE 3 ML AMPUL.NEB IH SCH ×4 (02:39→20:00)
[2019-06-13] MEDS: metroNIDAZOLE/NS 500 MG/100 ML 500 MG/100 ML BAG IV SCH ×3 (05:52→21:59)
[2019-06-13] MEDS: HEPARIN 5,000 UNIT/1 ML VIAL SUB-Q SCH ×3 (05:52→21:58)
[2019-06-13] MEDS: FUROSEMIDE 40 MG TAB PO SCH (05:52)
[2019-06-13] MEDS: HYDROmorphone 1 MG/1 ML INJ IV PRN ×5 (06:05→18:30)
[2019-06-13] MEDS: CEFEPIME/NS 2 GM/100 ML 2 GM/100 ML BAG IV SCH (06:15)
[2019-06-13 06:51] LABS: BUN/Creatinine Ratio 47; Blood Urea Nitrogen 42 mg/dL (9-20); Hemolysis Index 1
[2019-06-13 07:20] LABS: Hematocrit 20.9 % (35.5-45.6); Hemoglobin 6.8 gm/dl (11.8-15.2); Mean Corpuscular HGB Conc 32 % (32-34); Mean Corpuscular Volume 90 fl (84-94); Platelet Count 332 K/mm3 (140-440); Red Blood Count 2.32 M/mm3 (3.65-5.03)
[2019-06-13 07:23] LABS: Red Cell Distribution Width 29.2 % (13.2-15.2)
[2019-06-13] MEDS: BUDESONIDE 0.5 MG/2 ML NEBU IH SCH ×2 (08:38→20:00)
[2019-06-13] MEDS: ARFORMOTEROL 15 MCG/2 ML NEBU IH SCH ×2 (08:39→20:00)
[2019-06-13 08:43] LABS: Anisocytosis 1+; Hypochromasia 2+; Platelet Estimate Consistent w Auto; Target Cells 1+; Total Cells Counted 100
--- NOTE | 2019-06-13 09:01 | Progress Note ---
Assessment and Plan Assessment and plan: Patient is a 63 yo man with a history of NICMP, chronic HFrEF 10-15%, NSVT declines LifeVest/AICD, CKD 3, HTN and mod to severe TR, b/l LE wounds, bedbound who presents to [facility] ED with c/o abdominal pain for 3 days. He had multiple bilateral lower extremity wound and stage I to 2 lower extremity ulcer covered with pus. CT abdomen and pelvis suggestive of pneumoperitoneum. General surgery was consulted and patient was taken for OR for exploratory laparotomy by general surgeon. He also received empiric antibiotics. He was intubated per-operatively,extubated 06/05, transferred to Surgical floor. He is improving , now on GI soft diet. Surgery wants to cont TPN as long as he is in the hospital. --Perforated gastric ulcer. s/p exploratory laparotomy, omental patch of perforated gastric ulcer by Dr. Sims, cont empiric abx, on TPN advanced to GI soft diet --Sepsis with bilateral lower extremity cellulitis/infected ulcer and perforated bowel Continue empiric antibiotics, obtain blood cultures, wound culture Wound care consult placed, and following ID Physician following -when ready for discharge, change to Levofloxacin to complete 7 days from last debridement --bilateral lower extremity cellulitis/infected ulcer - from PVD s/p bilateral I and D done 06/[address] Oakes Amputation recommended but he has not consented --Moderate b/l pleural effusion CHFrEF 10-15% Cardiology consulted monitor ins/os, daily lasix iv to prevent fluid overload --Chronic systolic CHF cardiology following --Severe protein calorie malnutrition nutrition consult, may need TPN --CKD stage III, monitor renal function, avoid nephrotoxin renal function stable --Jaundice Elevated bilirubin, Total Bili of 7.7 Consult GI. cont to monitor clinically --Severe metabolic acidosis likely due to perforated bowel bicarbonate as needed --Acute respiratory failure following surgery CC following, cont nebs, Extubated 06/05 - Provide GI and DVT prophylaxis Discussed with Dr. Issa. OK to give Heparin subcut Disposition: PT recommended LTAC - if not accepted then d/c with HH History Interval history: Patient seen and examined medical records reviewed Patient feels slightly better this morning Vital signs reviewed Hospitalist Physical - Constitutional Vitals: Temp Pulse Resp BP Pulse Ox 97.3 F L 104 H 18 104/74 96 06/13/19 07:25 06/13/19 07:25 06/13/19 07:25 06/13/19 07:25 06/13/19 07:25 General appearance: Present: no acute distress, well-nourished - EENT Eyes: Present: PERRL, EOM intact - Neck Neck: Present: supple, normal ROM - Respiratory Respiratory effort: normal Respiratory: bilateral: diminished, negative: rales, rhonchi, wheezing - Cardiovascular Rhythm: regular Heart Sounds: Present: S1 & S2 - Extremities Extremities: no ischemia, No edema - Abdominal General gastrointestinal: soft, non-tender, non-distended, normal bowel sounds, other (Surgical dressing in place) - Integumentary Integumentary: Present: clear, warm - Psychiatric Psychiatric: appropriate mood/affect, cooperative - Neurologic Neurologic: CNII-XII intact, moves all extremities Results - Labs CBC & Chem 7: 06/13/19 06:11 06/13/19 06:11 Labs: Laboratory Last Values WBC 17.0 K/mm3 (4.5-11.0) H 06/13/19 06:11 RBC 2.32 M/mm3 (3.65-5.03) L 06/13/19 06:11 Hgb 6.8 gm/dl (11.8-15.2) L 06/13/19 06:11 Hct 20.9 % (35.5-45.6) L 06/13/19 06:11 MCV 90 fl (84-94) 06/13/19 06:11 MCH 29 pg (28-32) 06/13/19 06:11 MCHC 32 % (32-34) 06/13/19 06:11 RDW 29.2 % (13.2-15.2) H 06/13/19 06:11 Plt Count 332 K/mm3 (140-440) 06/13/19 06:11 Add Manual Diff Complete 06/13/19 06:11 Total Counted 100 06/13/19 06:11 Seg Neutrophils % High Lead Yarder 06/04/19 05:10 Seg Neuts % (Manual) 92.0 % (40.0-70.0) H 06/13/19 06:11 Band Neutrophils % 0 % 06/13/19 06:11 Lymphocytes % (Manual) 2.0 % (13.4-35.0) L 06/13/19 06:11 Reactive Lymphs % (Man) 0 % 06/13/19 06:11 Monocytes % (Manual) 4.0 % (0.0-7.3) 06/13/19 06:11 Eosinophils % (Manual) 1.0 % (0.0-4.3) 06/13/19 06:11 Basophils % (Manual) 1.0 % (0.0-1.8) 06/13/19 06:11 Metamyelocytes % 0 % 06/13/19 06:11 Myelocytes % 0 % 06/13/19 06:11 Promyelocytes % 0 % 06/13/19 06:11 Blast Cells % 0 % 06/13/19 06:11 Nucleated RBC % Not Reportable 06/13/19 06:11 Seg Neutrophils # Man 15.6 K/mm3 (1.8-7.7) H 06/13/19 06:11 Band Neutrophils # 0.0 K/mm3 06/13/19 06:11 Lymphocytes # (Manual) 0.3 K/mm3 (1.2-5.4) L 06/13/19 06:11 Abs React Lymphs (Man) 0.0 K/mm3 06/13/19 06:11 Monocytes # (Manual) 0.7 K/mm3 (0.0-0.8) 06/13/19 06:11 Eosinophils # (Manual) 0.2 K/mm3 (0.0-0.4) 06/13/19 06:11 Basophils # (Manual) 0.2 K/mm3 (0.0-0.1) H 06/13/19 06:11 Metamyelocytes # 0.0 K/mm3 06/13/19 06:11 Myelocytes # 0.0 K/mm3 06/13/19 06:11 Promyelocytes # 0.0 K/mm3 06/13/19 06:11 Blast Cells # 0.0 K/mm3 06/13/19 06:11 WBC Morphology Not Reportable 06/13/19 06:11 Hypersegmented Neuts Not Reportable 06/13/19 06:11 Hyposegmented Neuts Not Reportable 06/13/19 06:11 Hypogranular Neuts Not Reportable 06/13/19 06:11 Smudge Cells Not Reportable 06/13/19 06:11 Toxic Granulation Not Reportable 06/13/19 06:11 Toxic Vacuolation Not Reportable 06/13/19 06:11 Dohle Bodies Not Reportable 06/13/19 06:11 Pelger-Huet Anomaly Not Reportable 06/13/19 06:11 Romero Rods Not Reportable 06/13/19 06:11 Platelet Estimate Consistent w auto 06/13/19 06:11 Clumped Platelets Not Reportable 06/13/19 06:11 Plt Clumps, EDTA Not Reportable 06/13/19 06:11 Large Platelets Not Reportable 06/13/19 06:11 Giant Platelets Not Reportable 06/13/19 06:11 Platelet Satelliting Not Reportable 06/13/19 06:11 Plt Morphology Comment Not Reportable 06/13/19 06:11 RBC Morphology Not Reportable 06/13/19 06:11 Dimorphic RBCs Not Reportable 06/13/19 06:11 Polychromasia Not Reportable 06/13/19 06:11 Hypochromasia 2+ 06/13/19 06:11 Poikilocytosis Not Reportable 06/13/19 06:11 Anisocytosis 1+ 06/13/19 06:11 Microcytosis Not Reportable 06/13/19 06:11 Macrocytosis Not Reportable 06/13/19 06:11 Spherocytes Not Reportable 06/13/19 06:11 Pappenheimer Bodies Not Reportable 06/13/19 06:11 Sickle Cells Not Reportable 06/13/19 06:11 Target Cells 1+ 06/13/19 06:11 Tear Drop Cells Not Reportable 06/13/19 06:11 Ovalocytes Not Reportable 06/13/19 06:11 Helmet Cells Not Reportable 06/13/19 06:11 [place]imes-[place] Bodies Not Reportable 06/13/19 06:11 [place] Rings Not Reportable 06/13/19 06:11 Mccracken Cells Not Reportable 06/13/19 06:11 Bite Cells Not Reportable 06/13/19 06:11 Crenated Cell Not Reportable 06/13/19 06:11 Elliptocytes Not Reportable 06/13/19 06:11 Acanthocytes (Spur) Not Reportable 06/13/19 06:11 Rouleaux Not Reportable 06/13/19 06:11 Hemoglobin C Crystals Not Reportable 06/13/19 06:11 Schistocytes Not Reportable 06/13/19 06:11 Malaria parasites Not Reportable 06/13/19 06:11 Bunny Bodies Not Reportable 06/13/19 06:11 Hem Pathologist Commnt No 06/13/19 06:11 PT 17.9 Sec. (12.2-14.9) H 06/02/19 07:15 INR 1.50 (0.87-1.13) H 06/02/19 07:15 APTT 33.2 Sec. (24.2-36.6) 06/02/19 07:15 POC ABG pH 7.508 (7.35-7.45) H 06/07/19 09:44 POC ABG pCO2 41.5 (35-45) 06/07/19 09:44 POC ABG pO2 75 (80-105) L 06/07/19 09:44 POC ABG HCO3 33.0 (22-26 mml/L) 06/07/19 09:44 POC ABG Total CO2 34 (23-27mmol/L) 06/07/19 09:44 POC ABG O2 Sat 96 06/07/19 09:44 POC ABG Base Excess 10 ((-2) - (+3)mmol/L) 06/07/19 09:44 VBG pH 7.310 (7.320-7.420) L 06/02/19 07:15 FiO2 21 % 06/07/19 09:44 Sodium 134 mmol/L (137-145) L 06/13/19 06:11 Potassium 4.2 mmol/L (3.6-5.0) 06/13/19 06:11 Chloride 96.1 mmol/L (98-107) L 06/13/19 06:11 Carbon Dioxide 27 mmol/L (22-30) 06/13/19 06:11 Anion Gap 15 mmol/L 06/13/19 06:11 BUN 42 mg/dL (9-20) H 06/13/19 06:11 Creatinine 0.9 mg/dL (0.8-1.5) 06/13/19 06:11 Estimated GFR > 60 ml/min 06/13/19 06:11 BUN/Creatinine Ratio 47 % 06/13/19 06:11 Glucose 126 mg/dL (75-100) H 06/13/19 06:11 POC Glucose 133 (70-105) H 06/13/19 06:00 Lactic Acid 1.10 mmol/L (0.7-2.0) 06/02/19 09:17 Calcium 8.0 mg/dL (8.4-10.2) L 06/13/19 06:11 Phosphorus 3.60 mg/dL (2.5-4.5) 06/13/19 06:11 Magnesium 2.00 mg/dL (1.7-2.3) 06/13/19 06:11 Total Bilirubin 4.10 mg/dL (0.1-1.2) H 06/11/19 00:22 Direct Bilirubin 3.7 mg/dL (0-0.2) H 06/10/19 09:25 Indirect Bilirubin 1.1 mg/dL 06/10/19 09:25 AST 89 units/L (5-40) H 06/11/19 00:22 ALT 77 units/L (7-56) H 06/11/19 00:22 Alkaline Phosphatase 154 units/L (35-129) H 06/11/19 00:22 Ammonia 16.0 umol/L (25-60) L 06/02/19 07:15 Lactate Dehydrogenase 214 units/L (91-180) H 06/13/19 06:11 Total Creatine Kinase 53 units/L (55-170) L 06/02/19 07:15 CK-MB (CK-2) 5.1 ng/mL (0.0-4.0) H 06/02/19 07:15 CK-MB (CK-2) Rel Index 9.6 (0-4) H 06/02/19 07:15 Troponin T 0.065 ng/mL (0.00-0.029) H 06/02/19 07:15 NT-Pro-B Natriuret Pep > 19473 pg/mL (0-900) H 06/02/19 07:15 Total Protein 5.3 g/dL (6.3-8.2) L 06/11/19 00:22 Albumin 1.7 g/dL (3.9-5) L 06/11/19 00:22 Albumin/Globulin Ratio 0.5 % 06/11/19 00:22 Prealbumin 0.106 g/L (0.200-0.400) L 06/11/19 05:58 Triglycerides 78 mg/dL (2-149) 06/11/19 05:58 Cholesterol 73 mg/dL (50-199) 06/02/19 07:15 LDL Cholesterol Direct 31 mg/dL (50-130) L 06/02/19 07:15 HDL Cholesterol 8 mg/dL (40-59) L 06/02/19 07:15 Cholesterol/HDL Ratio 9.12 % 06/02/19 07:15 Lipase 56 units/L (13-60) 06/02/19 07:15 Urine Color [place] (Yellow) 06/02/19 10:37 Urine Turbidity Clear (Clear) 06/02/19 10:37 Urine pH 5.0 (5.0-7.0) 06/02/19 10:37 Ur Specific [place] 1.019 (1.003-1.030) 06/02/19 10:37 Urine Protein <15 mg/dl mg/dL (Negative) 06/02/19 10:37 Urine Glucose (UA) 50 mg/dL (Negative) 06/02/19 10:37 Urine Ketones Neg mg/dL (Negative) 06/02/19 10:37 Urine Blood Neg (Negative) 06/02/19 10:37 Urine Nitrite Neg (Negative) 06/02/19 10:37 Urine Bilirubin Neg (Negative) 06/02/19 10:37 Urine Urobilinogen 4.0 mg/dL (<2.0) 06/02/19 10:37 Ur Leukocyte Esterase Neg (Negative) 06/02/19 10:37 Urine WBC (Auto) 2.0 /HPF (0.0-6.0) 06/02/19 10:37 Urine RBC (Auto) 2.0 /HPF (0.0-6.0) 06/02/19 10:37 Urine Bacteria (Auto) 1+ /HPF (Negative) 06/02/19 10:37 Vancomycin Trough 11.6 ug/mL (5.0-20.0) 06/09/19 08:58 Blood Type A POSITIVE 06/02/19 11:55 Antibody Screen Negative 06/02/19 11:55 Active Medications - Current Medications Current Medications: Generic Name Dose Route Start Last Admin Trade Name Freq PRN Reason Stop Dose Admin Albuterol 2.5 mg 06/02/19 11:28 Proventil IH Q4H PRN Shortness Of Breath Albuterol/Ipratropium 1 ampul 06/06/19 20:00 06/13/19 08:38 Duoneb *Not For Prn Use* IH 1 ampul Q6HRT ROSE Administration Arformoterol Tartrate 15 mcg 06/02/19 20:00 06/13/19 08:39 Brovana Nebu IH 15 mcg Q12HRT ROSE Administration Budesonide 0.5 mg 06/02/19 20:00 06/13/19 08:38 Pulmicort IH 0.5 mg Q12HRT ROSE Administration Calcium Carbonate/Glycine 1,000 mg 06/09/19 14:04 06/11/19 19:00 Tums PO 1,000 mg Q4H PRN Administration Indigestion Carvedilol 3.125 mg 06/11/19 22:00 06/12/19 21:27 Coreg PO 3.125 mg BID ROSE Administration Furosemide 40 mg 06/12/19 06:00 06/13/19 05:52 Lasix PO 40 mg DAILY@0600 ROSE Administration Heparin Sodium (Porcine) 5,000 unit 06/09/19 22:00 06/13/19 05:52 Heparin SUB-Q 5,000 unit Q8HR ROSE Administration Hydromorphone HCl 0.25 mg 06/05/19 10:55 06/13/19 06:05 Dilaudid IV 0.25 mg Q3H PRN Administration Pain , Severe (7-10) Chlorpromazine HCl 25 mg/ 51 mls @ 100 mls/hr 06/08/19 15:00 Sodium Chloride IV Q4H PRN Hiccups Metronidazole 500 mg in 100 mls @ 100 mls/hr 06/09/19 14:00 06/13/19 05:52 Flagyl 500 Mg/100 Ml IV 100 mls/hr Q8HR ROSE Administration Protocol Cefepime HCl 2 gm in 100 mls @ 200 mls/hr 06/10/19 18:00 06/13/19 06:15 Cefepime/Ns 2 Gm/100 Ml IV 200 mls/hr Q12H ROSE Administration Protocol Amino Acids/Electrolytes/Dextrose 1,560 mls @ 65 mls/hr 06/12/19 20:00 06/12/19 21:12 Tpn Adult IV 06/13/19 19:59 65 mls/hr DAILY@2000 ROSE Administration Protocol Sodium Chloride 500 mls @ 0 mls/hr 06/13/19 08:58 Nacl 0.9% 500 Ml IV 06/13/19 08:59 ONCE ONE As Directed Insulin Human Lispro 0 unit 06/08/19 06:00 06/13/19 06:13 Humalog SUB-Q Not Given Q6HR [facility] Protocol Losartan Potassium 12.5 mg 06/12/19 10:00 06/12/19 12:01 Cozaar PO 12.5 mg QDAY ROSE Administration Ondansetron HCl 4 mg 06/11/19 15:26 06/11/19 19:34 Zofran IV 4 mg Q6H PRN Administration Nausea And Vomiting Oxycodone HCl 5 mg 06/10/19 13:30 06/13/19 01:30 Roxicodone PO 5 mg Q6H PRN Administration Pain, Moderate (4-6) Pantoprazole Sodium 40 mg 06/04/19 10:00 06/12/19 21:27 Protonix IV 40 mg BID ROSE Administration Sodium Hypochlorite 1 applic 06/05/19 22:00 06/12/19 22:57 Dakin's Half Strength TP Not Given BID [facility] Nutrition/Malnutrition Assess - Dietary Evaluation Nutrition/Malnutrition Findings: Nutrition Notes Start: 06/03/19 11:22 Freq: Status: Active Protocol: Document 06/12/19 10:50 WILLIAMS (Rec: 06/12/19 11:29 WILLIAMS [id number]) Co-Sign 06/12/19 10:50 LM Nutrition Notes Initial or Follow up Reassessment Current Diagnosis CKD(stage I-IV),Decubitus( Pressure Ulcer),Sepsis, Hypertension,Heart Failure Other Pertinent Diagnosis Perforated viscus S/P exp lap Current Diet CPN at 65 ml/hr and full liquid Labs/Tests Na 136 BUN 39 BG 144 Pertinent Medications Lasix Humalog Dilaudid Height 5 ft 7 in Weight 61.1 kg [place] Body Weight (kg) 67.27 BMI 21.1 Subjective/Other Information CPN day 9. Pt is slighty confused. Pt was eating grits during reassessment. Pt stated he drank a little bit of ensure yesterday and nothing else. 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 No Is Patient Ambulatory and/or Out of Bed No REE-(Lynn-. Jepr-confined to bed) 1648.764 Kcal/Kg value to use for calculation 26 Approximate Energy Requirements Using 1589 kcal/Kg Calculation Used for Recommendations Kcal/kg Additional Notes Protein: 36-92g (0.6-1.5g/kg) pt with CKD and malnutrition Fluid: 1 ml/kcal or per MD Nutrition Intervention Change Diet Order: Continue CPN and full liquids Nutrition Support: CPN at 65 ml/hr: 50g fat, 40 mEq K, 16 mEq Mg, 0 mEq Ca, MVI, 1969 mOsm Kcal 2,042 Protein (gm) 88 Carbohydrates (gm) 350 Fat (gm) 50 Fluid (mL) 1,560 Fiber (gm) 0 Add Supplement/Snack (indicate name/kcal Ensure Enlive strawberry/ /protein ) vanilla TID Provides kCal: 1,050 Provides Protein (gm) 60 Goal #1 CPN and full liquids to meet at least 80% of energy and protein needs Goal #2 Diet advancement when medically feasible Anticipated Discharge Needs: Unable to determine at this time Follow-Up By: 06/13/19 Additional Comments Labs in AM: BMP, Mg, Phos F/U for intakes, ONS tolerance , diet advancement
[2019-06-13] MEDS: SODIUM HYPOCHLORITE, DAKIN'S 1/2 STRENGTH (0.25%) 473 ML TOPICAL SOLN TP SCH ×2 (09:28→22:01)
[2019-06-13] MEDS ORDERED: SODIUM CHLORIDE 0.9% 500 ML 500 ML IV NR (09:30)
--- NOTE | 2019-06-13 10:06 | Progress Note ---
Assessment and Plan Currently stable cardiac status. Cont present cardiac management. The patient has been seen in conjunction with Dr. Melia Baird who agrees with the assessment and plan of care. - Patient Problems (1) Pneumoperitoneum Current Visit: Yes Status: Acute (2) Sepsis Current Visit: Yes Status: Acute Qualifiers: Sepsis type: sepsis due to unspecified organism Sepsis acute organ dysfunction status: unspecified Qualified Code(s): A41.9 - Sepsis, unspecified organism (3) Chronic HFrEF (heart failure with reduced ejection fraction) Current Visit: Yes Status: Chronic (4) Nonischemic cardiomyopathy Current Visit: Yes Status: Chronic convert IV lopressor (5) Sinus node dysfunction Current Visit: Yes Status: Chronic (6) NSVT (nonsustained ventricular tachycardia) Current Visit: Yes Status: Chronic (7) HTN (hypertension) Current Visit: Yes Status: Chronic Qualifiers: Hypertension type: essential hypertension Qualified Code(s): I10 - Essential (primary) hypertension (8) Pulmonary hypertension Current Visit: Yes Status: Chronic (9) PAD (peripheral artery disease) Current Visit: Yes Status: Chronic (10) Anemia Current Visit: Yes Status: Acute Subjective Date of service: 06/13/19 Principal diagnosis: elevated LFTs Interval history: pt resting in bed, alert, states he is feeling better today, tolerating his diet. in ST with HR 110s, no acute events noted overnight. no family at bedside. Objective Last Vital Signs Temp 97.3 F L 06/13/19 07:25 Pulse 104 H 06/13/19 07:25 Resp 18 06/13/19 07:25 BP 104/74 06/13/19 07:25 Pulse Ox 96 06/13/19 07:25 - Physical Examination General: No Apparent Distress HEENT: Positive: EOMI, Normocephaly, Mucus Membranes Moist Neck: Positive: neck supple, trachea midline, Carotid Upstroke (full) Cardiac: Positive: Regular Rhythm, S1/S2 Lungs: Positive: Decreased Breath Sounds Neuro: Positive: Grossly Intact Abdomen: Positive: Soft /Rectal: Other (Urine dark yellow) Skin: Positive: Other (abdominal surgical wounds, multiple wounds on both lower extremities with areas of ischemic ulceration.) Musculoskeletal: Normal Range of Motion Extremities: Present: lower extr. pulses (LLE difficult to palpate d/t wound dressing and ischemic ulceration), Other (LLE - pulse difficult to palpate d/t w ounds ) - Labs and Meds Cardiac Enzymes 06/13/19 Range/Units 06:11 Lactate Dehydrogenase 214 H (91-180) units/L CBC 06/13/19 Range/Units 06:11 WBC 17.0 H (4.5-11.0) K/mm3 RBC 2.32 L (3.65-5.03) M/mm3 Hgb 6.8 L (11.8-15.2) gm/dl Hct 20.9 L (35.5-45.6) % Plt Count 332 (140-440) K/mm3 Comprehensive Metabolic Panel 06/13/19 Range/Units 06:11 Sodium 134 L (137-145) mmol/L Potassium 4.2 (3.6-5.0) mmol/L Chloride 96.1 L (98-107) mmol/L Carbon Dioxide 27 (22-30) mmol/L BUN 42 H (9-20) mg/dL Creatinine 0.9 (0.8-1.5) mg/dL Glucose 126 H (75-100) mg/dL Calcium 8.0 L (8.4-10.2) mg/dL - Imaging and Cardiology EKG: image reviewed Echo: report reviewed (02/28/19 showed EF of 10-15%, dilation of all chambers, moderate AR, moderate to severe TR and RV hypokinesis. ) Cardiac cath: report reviewed (04/2017 showed patent coronaries, EF 10-15%. ) - EKG Sinus rhythms and dysrhythmias: sinus rhythm Chamber hypertrophy or enlargement: left ventricular hypertro Repolarization changes or abnormalities: repolarization abn secondary to giulia tricular hypertrophy Myocardial infarction: septal FL (old age or ind
[2019-06-13] MEDS: LOSARTAN 25 MG TAB PO SCH (10:27)
[2019-06-13] MEDS: carvediloL 3.125 MG TAB PO SCH ×2 (10:27→22:02)
[2019-06-13] MEDS ORDERED: SODIUM CHLORIDE 0.9% 500 ML 500 ML IV SCH (10:47)
--- NOTE | 2019-06-13 11:22 | Progress Note ---
Assessment and Plan 63 yo M s/p exploratory laparotomy, omental patch of perforated gastric ulcer POD 11 1. sepsis 2. perforated gastric ulcer 3. severe malnutrition 4. b/l pleural effusions 5. bedbound 6. infected b/l LE wounds with likely chronic limb ischemia 7. cardiomyopathy 8. CHF 9. fascial dehiscence of abdominal wound Arterial duplex - no arterial disease Plan: 1. prn pain control 2. DVT ppx 3. Protonix IV BID 4. no NSAIDs 5. NPO 6. IS/pulm toilet 7. OOB with PT 8. IV abx per ID 9. Keep TANESHA site with alginate and dry dressing - discussed with RN 10. Educated on IS and pulmonary toilet Patient with dehiscence of fascia of midline abdominal wound with eviscerated omentum in middle of incision. Will need urgent OR for closure of fascia. Discussed with patient and questions answered. Consent obtained. Currently not stable for discharge. Please call with questions. Subjective Date of service: 06/13/19 Narrative: Pt seen and examined. No acute complaints. No f/c. Tolerating full liquids. No n/v. Objective Vital Signs - 12hr 06/13/19 06/13/19 06/13/19 00:17 04:17 07:25 Temperature 98.0 F 97.3 F L 97.3 F L Pulse Rate 106 H 100 H 104 H Respiratory 20 18 18 Rate Blood Pressure 96/69 101/71 104/74 O2 Sat by Pulse 91 94 96 Oximetry - General physical appearance Narrative Exam: Gen: AAOx3. NAD CV: s1, S2+ Resp; even and unlabored Abd: soft, NT, ND. Dressings removed. Copious serosanguenous drainage. Evisceration of omentum through middle portion of midline incision. Moist gauze placed over area and covered with dry dressing. Ext: no c/c/e - Labs 06/13/19 06:11 06/13/19 06:11 Diabetes panel 06/13/19 Range/Units 06:11 Sodium 134 L (137-145) mmol/L Potassium 4.2 (3.6-5.0) mmol/L Chloride 96.1 L (98-107) mmol/L Carbon Dioxide 27 (22-30) mmol/L BUN 42 H (9-20) mg/dL Creatinine 0.9 (0.8-1.5) mg/dL Glucose 126 H (75-100) mg/dL Calcium 8.0 L (8.4-10.2) mg/dL Calcium panel 06/13/19 Range/Units 06:11 Calcium 8.0 L (8.4-10.2) mg/dL Phosphorus 3.60 (2.5-4.5) mg/dL Pituitary panel 06/13/19 Range/Units 06:11 Sodium 134 L (137-145) mmol/L Potassium 4.2 (3.6-5.0) mmol/L Chloride 96.1 L (98-107) mmol/L Carbon Dioxide 27 (22-30) mmol/L BUN 42 H (9-20) mg/dL Creatinine 0.9 (0.8-1.5) mg/dL Glucose 126 H (75-100) mg/dL Calcium 8.0 L (8.4-10.2) mg/dL Adrenal panel 06/13/19 Range/Units 06:11 Sodium 134 L (137-145) mmol/L Potassium 4.2 (3.6-5.0) mmol/L Chloride 96.1 L (98-107) mmol/L Carbon Dioxide 27 (22-30) mmol/L BUN 42 H (9-20) mg/dL Creatinine 0.9 (0.8-1.5) mg/dL Glucose 126 H (75-100) mg/dL Calcium 8.0 L (8.4-10.2) mg/dL
[2019-06-13] MEDS: PANTOPRAZOLE 40 MG INJ IV SCH ×2 (11:28→21:58)
[2019-06-13] MEDS ORDERED: ROCURONIUM 50 MG/5 ML INJ IV ONE (12:53)
[2019-06-13] MEDS ORDERED: ETOMIDATE 20 MG/10 ML INJ IV ONE (12:53)
--- NOTE | 2019-06-13 12:53 | Progress Note ---
Assessment and Plan Cultures: Blood culture 06/02/19 no growth to date Urine culture 06/02/19 no growth to date Surgical culture 06/02/19 Suni albicans Wound culture right foot 06/02/2019 - PsA, Morganella Surgical foot culture Left 06/05/2019 - P mirabilis Surgical foot culture right 06/05/2019 - P mirabilis Assessment: 63 yo M with severe non ischemic cardiomyopathy and heart failure, chronic bilateral wounds admitted with small perforated gastric ulcer. 1. Acute sepsis: POA. Likely secondary to perforated gastric ulcer and infected chronic wounds on LE. 2. Infected bilateral infected wounds - chronic with worsening. He has significant CHF and likely perfusion compromise. Concern for the viability of these limbs. Surgery has also evaluated. patient has refused amputation. His LE wounds are not curable. This was explained to him at length by Dr. Dos Santos. s/p debridement again by Dr. Oakes on 06/12/2019. 3. Perforated gastric ulcer: s/p surgery: exploratory laparotomy, omental patch of perforated gastric ulcer. 4. Elevated bilirubin: GI following. Cholestasis, thought to be related to congestive heart failure and TPN. Recs: - awaiting OR by Gen Surg due to wound dehiscence - continue cefepime and metronidazole for now - continue wound care to feet Diamond Cohen MD, FACP [facility] ([facility] C: [phone] O: [phone] F: [phone] Subjective Date of service: 06/13/19 Principal diagnosis: elevated LFTs Interval history: No fever. Has omentum coming out of abdominal incision, planned for OR. Otherwise has no new complaints. Got b/l feet debrided yesterday. Objective - Exam Narrative Exam: Physical Exam: Constitutional: Alert, cooperative. No acute distress Head, Ears, Nose: Normocephalic, atraumatic. External ears, nose normal Eyes: Conjunctivae/corneas clear. No ptosis. Neck: Supple, no meningeal signs Oral: dentition poor, no thrush Cardiovascular: S1, S2 normal. Respiratory: Good air entry, clear to auscultation bilaterally GI: Soft, non-tender; bowel sounds normal. Midline incision with prolapsed omentum. R lateral wall with dressing Musculoskeletal: b/l LE with extensive wounds and drainage Skin: No rash or abscess Hem/Lymphatic: No palpable cervical or supraclavicular nodes. No lymphangitis Psych: Mood ok. Affect flat Neurological: Awake, alert, oriented. - Constitutional Vitals: Vital Signs Temp Pulse Resp BP Pulse Ox 97.7 F 105 H 18 87/57 97 06/13/19 11:46 06/13/19 11:46 06/13/19 11:46 06/13/19 11:46 06/13/19 11:46 Temperature -Last 24 Hours Temperature 97.7 F Temperature 97.3 F Temperature 97.3 F Temperature 98.0 F Temperature 97.6 F Temperature 98.4 F - Labs CBC & Chem 7: 06/13/19 06:11 06/13/19 06:11 Labs: Abnormal lab results 06/13/19 06/13/19 06/13/19 Range/Units 00:27 06:00 06:11 WBC (4.5-11.0) K/mm3 RBC (3.65-5.03) M/mm3 Hgb (11.8-15.2) gm/dl Hct (35.5-45.6) % RDW (13.2-15.2) % Seg Neuts % (Manual) (40.0-70.0) % Lymphocytes % (Manual) (13.4-35.0) % Seg Neutrophils # Man (1.8-7.7) K/mm3 Lymphocytes # (Manual) (1.2-5.4) K/mm3 Basophils # (Manual) (0.0-0.1) K/mm3 Sodium (137-145) mmol/L Chloride (98-107) mmol/L BUN (9-20) mg/dL Glucose (75-100) mg/dL POC Glucose 151 H 133 H (70-105) Calcium (8.4-10.2) mg/dL Lactate Dehydrogenase 214 H (91-180) units/L Crossmatch 06/13/19 06/13/19 06/13/19 Range/Units 06:11 06:11 11:17 WBC 17.0 H (4.5-11.0) K/mm3 RBC 2.32 L (3.65-5.03) M/mm3 Hgb 6.8 L (11.8-15.2) gm/dl Hct 20.9 L (35.5-45.6) % RDW 29.2 H (13.2-15.2) % Seg Neuts % (Manual) 92.0 H (40.0-70.0) % Lymphocytes % (Manual) 2.0 L (13.4-35.0) % Seg Neutrophils # Man 15.6 H (1.8-7.7) K/mm3 Lymphocytes # (Manual) 0.3 L (1.2-5.4) K/mm3 Basophils # (Manual) 0.2 H (0.0-0.1) K/mm3 Sodium 134 L (137-145) mmol/L Chloride 96.1 L (98-107) mmol/L BUN 42 H (9-20) mg/dL Glucose 126 H (75-100) mg/dL POC Glucose (70-105) Calcium 8.0 L (8.4-10.2) mg/dL Lactate Dehydrogenase (91-180) units/L Crossmatch See Detail 06/13/19 Range/Units 11:25 WBC (4.5-11.0) K/mm3 RBC (3.65-5.03) M/mm3 Hgb (11.8-15.2) gm/dl Hct (35.5-45.6) % RDW (13.2-15.2) % Seg Neuts % (Manual) (40.0-70.0) % Lymphocytes % (Manual) (13.4-35.0) % Seg Neutrophils # Man (1.8-7.7) K/mm3 Lymphocytes # (Manual) (1.2-5.4) K/mm3 Basophils # (Manual) (0.0-0.1) K/mm3 Sodium (137-145) mmol/L Chloride (98-107) mmol/L BUN (9-20) mg/dL Glucose (75-100) mg/dL POC Glucose 185 H (70-105) Calcium (8.4-10.2) mg/dL Lactate Dehydrogenase (91-180) units/L Crossmatch
[2019-06-13] MEDS ORDERED: fentaNYL 100 MCG/2 ML INJ ONE (12:54)
--- NOTE | 2019-06-13 13:23 | Procedure Note ---
Date of procedure: 06/12/19 Pre-op diagnosis: Open wounds of left leg and bilateral dorsal feet Post-op diagnosis: same Procedure: Debridement of left distal anterior leg and bilateral dorsal feet Description of procedure: Pt was supine on his bed. Topical Lidocaine had been previously applied. All wound areas were prepped and draped. An eschar, SQ tissue and tendon surgical/excisional debridement of the left distal anterior leg was performed with forceps and scissors. A SQ tissue surgical/excisional debridement of the bilateral dorsal feet was then performed with a curette. Bleeding was minimal and was controlled with pressure. Wounds were then dressed by the Wound Care nurse. Pt tolerated the procedure well. Final wound measurements were as follows: 1) Left anterior le X 8.5 X 0.7 cm 2) Left dorsal foot: 8 X 7.5 X 0.5 cm 3) Right dorsal foot: 8 X 5.5 X 0.4 cm Anesthesia: other (Topical 4% Lidocaine) Surgeon: JUAN BEARDEN Estimated blood loss: minimal Pathology: none Specimen disposition: discarded Condition: stable Disposition: no change
--- NOTE | 2019-06-13 13:28 | Progress Note ---
Assessment and Plan I am location director this week for the unit so if the patient requires prolong intubation post-op please don't hesitate to call if needed. Otherwise, no new recs and will continue to follow. Oxygen currently weaned off with good sats. 1. Incentive spirometry 2. Reviewed ID note 3. Wean FiO2 for sats >88% 4. Will continue to follow. Overall prognosis appears guarded to poor Subjective Date of service: 06/13/19 Principal diagnosis: elevated LFTs Interval history: Patient has to go back to OR secondary to wound dehiscence. Pulm status stable and has been weaned to room air. Objective Vital Signs - 12hr 06/13/19 06/13/19 06/13/19 04:17 07:25 11:46 Temperature 97.3 F L 97.3 F L 97.7 F Pulse Rate 100 H 104 H 105 H Respiratory 18 18 18 Rate Blood Pressure 101/71 104/74 87/57 O2 Sat by Pulse 94 96 97 Oximetry Constitutional: no acute distress, alert Eyes: non-icteric ENT: oropharynx moist Neck: supple Effort: normal Ascultation: Bilateral: clear, other (coarse BS bilaterally) Cardiovascular: regular rate and rhythm (no mrg) Gastrointestinal: absent bowel sounds, non-tender Integumentary: other (necrotic ulcers lower extremities) Extremities: no cyanosis, edema (1+ generalized edema) Neurologic: normal mental status, non-focal exam Psychiatric: mood appropriate, affect normal CBC and BMP: 06/13/19 06:11 06/13/19 06:11 ABG, PT/INR, D-dimer: ABG POC ABG pH 7.508 (7.35-7.45) H 06/07/19 09:44 POC ABG pCO2 41.5 (35-45) 06/07/19 09:44 POC ABG pO2 75 (80-105) L 06/07/19 09:44 POC ABG HCO3 33.0 (22-26 mml/L) 06/07/19 09:44 POC ABG Total CO2 34 (23-27mmol/L) 06/07/19 09:44 POC ABG O2 Sat 96 06/07/19 09:44 PT/INR, D-dimer PT 17.9 Sec. (12.2-14.9) H 06/02/19 07:15 INR 1.50 (0.87-1.13) H 06/02/19 07:15 Abnormal lab findings: Abnormal Labs 06/02/19 06/02/19 06/02/19 07:15 07:15 07:15 WBC 21.0 H RBC 5.17 H Hgb Hct MCH 27 L RDW 23.8 H Seg Neuts % (Manual) 97.0 H Lymphocytes % (Manual) 1.0 L Nucleated RBC % 3.0 H Seg Neutrophils # Man 20.4 H Lymphocytes # (Manual) 0.2 L Basophils # (Manual) PT 17.9 H INR 1.50 H POC ABG pH POC ABG pCO2 POC ABG pO2 VBG pH Sodium 130 L Chloride 97.1 L Carbon Dioxide 16 L BUN 47 H Creatinine Glucose 139 H POC Glucose Lactic Acid Calcium Phosphorus Magnesium Total Bilirubin 6.40 H Direct Bilirubin 4.5 H AST 50 H ALT Alkaline Phosphatase 179 H Ammonia Lactate Dehydrogenase Total Creatine Kinase 53 L CK-MB (CK-2) 5.1 H CK-MB (CK-2) Rel Index 9.6 H Troponin T NT-Pro-B Natriuret Pep > 63370 H Total Protein 5.8 L Albumin 2.1 L Prealbumin LDL Cholesterol Direct HDL Cholesterol Vancomycin Trough Crossmatch 06/02/19 06/02/19 06/02/19 07:15 07:15 07:15 WBC RBC Hgb Hct MCH RDW Seg Neuts % (Manual) Lymphocytes % (Manual) Nucleated RBC % Seg Neutrophils # Man Lymphocytes # (Manual) Basophils # (Manual) PT INR POC ABG pH POC ABG pCO2 POC ABG pO2 VBG pH 7.310 L Sodium Chloride Carbon Dioxide BUN Creatinine Glucose POC Glucose Lactic Acid 2.40 H* Calcium Phosphorus Magnesium Total Bilirubin Direct Bilirubin AST ALT Alkaline Phosphatase Ammonia 16.0 L Lactate Dehydrogenase Total Creatine Kinase CK-MB (CK-2) CK-MB (CK-2) Rel Index Troponin T NT-Pro-B Natriuret Pep Total Protein Albumin Prealbumin LDL Cholesterol Direct HDL Cholesterol Vancomycin Trough Crossmatch 06/02/19 06/02/19 06/02/19 07:15 15:33 15:53 WBC RBC Hgb Hct MCH RDW Seg Neuts % (Manual) Lymphocytes % (Manual) Nucleated RBC % Seg Neutrophils # Man Lymphocytes # (Manual) Basophils # (Manual) PT INR POC ABG pH 7.229 L POC ABG pCO2 49.5 H POC ABG pO2 VBG pH Sodium Chloride Carbon Dioxide BUN Creatinine Glucose POC Glucose 66 L Lactic Acid Calcium Phosphorus Magnesium Total Bilirubin Direct Bilirubin AST ALT Alkaline Phosphatase Ammonia Lactate Dehydrogenase Total Creatine Kinase CK-MB (CK-2) CK-MB (CK-2) Rel Index Troponin T 0.065 H NT-Pro-B Natriuret Pep Total Protein Albumin Prealbumin LDL Cholesterol Direct 31 L HDL Cholesterol 8 L Vancomycin Trough Crossmatch 06/02/19 06/02/19 06/03/19 16:40 17:10 04:06 WBC RBC Hgb Hct MCH RDW Seg Neuts % (Manual) Lymphocytes % (Manual) Nucleated RBC % Seg Neutrophils # Man Lymphocytes # (Manual) Basophils # (Manual) PT INR POC ABG pH 7.259 L POC ABG pCO2 33.9 L POC ABG pO2 221 H 146 H VBG pH Sodium Chloride Carbon Dioxide BUN Creatinine Glucose POC Glucose 151 H Lactic Acid Calcium Phosphorus Magnesium Total Bilirubin Direct Bilirubin AST ALT Alkaline Phosphatase Ammonia Lactate Dehydrogenase Total Creatine Kinase CK-MB (CK-2) CK-MB (CK-2) Rel Index Troponin T NT-Pro-B Natriuret Pep Total Protein Albumin Prealbumin LDL Cholesterol Direct HDL Cholesterol Vancomycin Trough Crossmatch 06/03/19 06/03/19 06/03/19 04:41 04:41 17:23 WBC 17.5 H RBC Hgb Hct MCH 27 L RDW 25.0 H Seg Neuts % (Manual) 96.0 H Lymphocytes % (Manual) 0 L Nucleated RBC % 1.0 H Seg Neutrophils # Man 16.8 H Lymphocytes # (Manual) 0.0 L Basophils # (Manual) PT INR POC ABG pH POC ABG pCO2 POC ABG pO2 VBG pH Sodium Chloride Carbon Dioxide 17 L BUN 42 H Creatinine Glucose 59 L POC Glucose 113 H Lactic Acid Calcium Phosphorus Magnesium Total Bilirubin 7.00 H Direct Bilirubin AST ALT Alkaline Phosphatase 153 H Ammonia Lactate Dehydrogenase Total Creatine Kinase CK-MB (CK-2) CK-MB (CK-2) Rel Index Troponin T NT-Pro-B Natriuret Pep Total Protein 5.9 L Albumin 1.7 L Prealbumin LDL Cholesterol Direct HDL Cholesterol Vancomycin Trough Crossmatch 06/03/19 06/04/19 06/04/19 23:37 05:10 05:10 WBC 16.7 H RBC Hgb Hct MCH 27 L RDW 24.5 H Seg Neuts % (Manual) 94.0 H Lymphocytes % (Manual) 3.0 L Nucleated RBC % Seg Neutrophils # Man 15.7 H Lymphocytes # (Manual) 0.5 L Basophils # (Manual) PT INR POC ABG pH POC ABG pCO2 POC ABG pO2 VBG pH Sodium Chloride Carbon Dioxide BUN 39 H Creatinine Glucose 136 H POC Glucose 126 H Lactic Acid Calcium 8.3 L Phosphorus Magnesium 1.30 L Total Bilirubin 7.70 H Direct Bilirubin AST ALT Alkaline Phosphatase 140 H Ammonia Lactate Dehydrogenase Total Creatine Kinase CK-MB (CK-2) CK-MB (CK-2) Rel Index Troponin T NT-Pro-B Natriuret Pep Total Protein 5.6 L Albumin 1.7 L Prealbumin LDL Cholesterol Direct HDL Cholesterol Vancomycin Trough Crossmatch 06/04/19 06/04/19 06/04/19 05:44 13:50 18:05 WBC RBC Hgb Hct MCH RDW Seg Neuts % (Manual) Lymphocytes % (Manual) Nucleated RBC % Seg Neutrophils # Man Lymphocytes # (Manual) Basophils # (Manual) PT INR POC ABG pH POC ABG pCO2 POC ABG pO2 VBG pH Sodium Chloride Carbon Dioxide BUN Creatinine Glucose POC Glucose 124 H 137 H 120 H Lactic Acid Calcium Phosphorus Magnesium Total Bilirubin Direct Bilirubin AST ALT Alkaline Phosphatase Ammonia Lactate Dehydrogenase Total Creatine Kinase CK-MB (CK-2) CK-MB (CK-2) Rel Index Troponin T NT-Pro-B Natriuret Pep Total Protein Albumin Prealbumin LDL Cholesterol Direct HDL Cholesterol Vancomycin Trough Crossmatch 06/05/19 06/05/19 06/05/19 00:58 04:20 04:20 WBC 15.0 H RBC Hgb Hct MCH 27 L RDW 25.0 H Seg Neuts % (Manual) Lymphocytes % (Manual) Nucleated RBC % Seg Neutrophils # Man Lymphocytes # (Manual) Basophils # (Manual) PT INR POC ABG pH POC ABG pCO2 POC ABG pO2 VBG pH Sodium Chloride Carbon Dioxide BUN 52 H Creatinine Glucose 137 H POC Glucose 114 H Lactic Acid Calcium 7.8 L Phosphorus Magnesium Total Bilirubin Direct Bilirubin AST ALT Alkaline Phosphatase Ammonia Lactate Dehydrogenase Total Creatine Kinase CK-MB (CK-2) CK-MB (CK-2) Rel Index Troponin T NT-Pro-B Natriuret Pep Total Protein Albumin Prealbumin LDL Cholesterol Direct HDL Cholesterol Vancomycin Trough Crossmatch 06/05/19 06/05/19 06/05/19 05:39 05:45 09:45 WBC RBC Hgb Hct MCH RDW Seg Neuts % (Manual) Lymphocytes % (Manual) Nucleated RBC % Seg Neutrophils # Man Lymphocytes # (Manual) Basophils # (Manual) PT INR POC ABG pH POC ABG pCO2 POC ABG pO2 108 H VBG pH Sodium Chloride Carbon Dioxide BUN Creatinine Glucose POC Glucose 111 H Lactic Acid Calcium Phosphorus Magnesium Total Bilirubin Direct Bilirubin AST ALT Alkaline Phosphatase Ammonia Lactate Dehydrogenase Total Creatine Kinase CK-MB (CK-2) CK-MB (CK-2) Rel Index Troponin T NT-Pro-B Natriuret Pep Total Protein Albumin Prealbumin LDL Cholesterol Direct HDL Cholesterol Vancomycin Trough 20.1 H Crossmatch 06/05/19 06/05/19 06/06/19 13:25 18:27 00:01 WBC RBC Hgb Hct MCH RDW Seg Neuts % (Manual) Lymphocytes % (Manual) Nucleated RBC % Seg Neutrophils # Man Lymphocytes # (Manual) Basophils # (Manual) PT INR POC ABG pH POC ABG pCO2 POC ABG pO2 VBG pH Sodium Chloride Carbon Dioxide BUN Creatinine Glucose POC Glucose 152 H 194 H 153 H Lactic Acid Calcium Phosphorus Magnesium Total Bilirubin Direct Bilirubin AST ALT Alkaline Phosphatase Ammonia Lactate Dehydrogenase Total Creatine Kinase CK-MB (CK-2) CK-MB (CK-2) Rel Index Troponin T NT-Pro-B Natriuret Pep Total Protein Albumin Prealbumin LDL Cholesterol Direct HDL Cholesterol Vancomycin Trough Crossmatch 06/06/19 06/06/19 06/06/19 04:20 05:45 12:32 WBC RBC Hgb Hct MCH RDW Seg Neuts % (Manual) Lymphocytes % (Manual) Nucleated RBC % Seg Neutrophils # Man Lymphocytes # (Manual) Basophils # (Manual) PT INR POC ABG pH POC ABG pCO2 POC ABG pO2 VBG pH Sodium Chloride Carbon Dioxide BUN 62 H Creatinine Glucose 141 H POC Glucose 161 H 131 H Lactic Acid Calcium 7.7 L Phosphorus 2.40 L Magnesium Total Bilirubin Direct Bilirubin AST ALT Alkaline Phosphatase Ammonia Lactate Dehydrogenase Total Creatine Kinase CK-MB (CK-2) CK-MB (CK-2) Rel Index Troponin T NT-Pro-B Natriuret Pep Total Protein Albumin Prealbumin LDL Cholesterol Direct HDL Cholesterol Vancomycin Trough Crossmatch 06/07/19 06/07/19 06/07/19 02:07 05:36 05:36 WBC 25.3 H RBC Hgb 10.8 L Hct 33.7 L MCH 27 L RDW 26.7 H Seg Neuts % (Manual) Lymphocytes % (Manual) Nucleated RBC % Seg Neutrophils # Man Lymphocytes # (Manual) Basophils # (Manual) PT INR POC ABG pH POC ABG pCO2 POC ABG pO2 VBG pH Sodium 135 L Chloride 93.6 L Carbon Dioxide BUN 58 H Creatinine Glucose 131 H POC Glucose 165 H Lactic Acid Calcium 8.0 L Phosphorus Magnesium Total Bilirubin Direct Bilirubin AST ALT Alkaline Phosphatase Ammonia Lactate Dehydrogenase Total Creatine Kinase CK-MB (CK-2) CK-MB (CK-2) Rel Index Troponin T NT-Pro-B Natriuret Pep Total Protein Albumin Prealbumin LDL Cholesterol Direct HDL Cholesterol Vancomycin Trough Crossmatch 06/07/19 06/07/19 06/07/19 09:44 18:05 23:51 WBC RBC Hgb Hct MCH RDW Seg Neuts % (Manual) Lymphocytes % (Manual) Nucleated RBC % Seg Neutrophils # Man Lymphocytes # (Manual) Basophils # (Manual) PT INR POC ABG pH 7.508 H POC ABG pCO2 POC ABG pO2 75 L VBG pH Sodium Chloride Carbon Dioxide BUN Creatinine Glucose POC Glucose 137 H 180 H Lactic Acid Calcium Phosphorus Magnesium Total Bilirubin Direct Bilirubin AST ALT Alkaline Phosphatase Ammonia Lactate Dehydrogenase Total Creatine Kinase CK-MB (CK-2) CK-MB (CK-2) Rel Index Troponin T NT-Pro-B Natriuret Pep Total Protein Albumin Prealbumin LDL Cholesterol Direct HDL Cholesterol Vancomycin Trough Crossmatch 06/08/19 06/08/19 06/08/19 05:07 05:07 06:26 WBC 25.1 H RBC 3.21 L Hgb 8.8 L Hct 27.3 L D MCH RDW 27.7 H Seg Neuts % (Manual) Lymphocytes % (Manual) Nucleated RBC % Seg Neutrophils # Man Lymphocytes # (Manual) Basophils # (Manual) PT INR POC ABG pH POC ABG pCO2 POC ABG pO2 VBG pH Sodium 134 L Chloride 97.2 L Carbon Dioxide BUN 49 H Creatinine 0.7 L Glucose 144 H POC Glucose 149 H Lactic Acid Calcium 7.7 L Phosphorus Magnesium Total Bilirubin Direct Bilirubin AST ALT Alkaline Phosphatase Ammonia Lactate Dehydrogenase Total Creatine Kinase CK-MB (CK-2) CK-MB (CK-2) Rel Index Troponin T NT-Pro-B Natriuret Pep Total Protein Albumin Prealbumin LDL Cholesterol Direct HDL Cholesterol Vancomycin Trough Crossmatch 06/08/19 06/08/19 06/09/19 11:18 17:43 00:04 WBC RBC Hgb Hct MCH RDW Seg Neuts % (Manual) Lymphocytes % (Manual) Nucleated RBC % Seg Neutrophils # Man Lymphocytes # (Manual) Basophils # (Manual) PT INR POC ABG pH POC ABG pCO2 POC ABG pO2 VBG pH Sodium Chloride Carbon Dioxide BUN Creatinine Glucose POC Glucose 134 H 153 H 161 H Lactic Acid Calcium Phosphorus Magnesium Total Bilirubin Direct Bilirubin AST ALT Alkaline Phosphatase Ammonia Lactate Dehydrogenase Total Creatine Kinase CK-MB (CK-2) CK-MB (CK-2) Rel Index Troponin T NT-Pro-B Natriuret Pep Total Protein Albumin Prealbumin LDL Cholesterol Direct HDL Cholesterol Vancomycin Trough Crossmatch 06/09/19 06/09/19 06/09/19 05:51 08:58 11:53 WBC RBC Hgb Hct MCH RDW Seg Neuts % (Manual) Lymphocytes % (Manual) Nucleated RBC % Seg Neutrophils # Man Lymphocytes # (Manual) Basophils # (Manual) PT INR POC ABG pH POC ABG pCO2 POC ABG pO2 VBG pH Sodium Chloride 97.1 L Carbon Dioxide BUN 40 H Creatinine 0.6 L Glucose 161 H POC Glucose 183 H 189 H Lactic Acid Calcium 7.9 L Phosphorus Magnesium Total Bilirubin Direct Bilirubin AST ALT Alkaline Phosphatase Ammonia Lactate Dehydrogenase Total Creatine Kinase CK-MB (CK-2) CK-MB (CK-2) Rel Index Troponin T NT-Pro-B Natriuret Pep Total Protein Albumin Prealbumin LDL Cholesterol Direct HDL Cholesterol Vancomycin Trough Crossmatch 06/09/19 06/10/19 06/10/19 17:30 05:00 08:36 WBC RBC Hgb Hct MCH RDW Seg Neuts % (Manual) Lymphocytes % (Manual) Nucleated RBC % Seg Neutrophils # Man Lymphocytes # (Manual) Basophils # (Manual) PT INR POC ABG pH POC ABG pCO2 POC ABG pO2 VBG pH Sodium Chloride Carbon Dioxide BUN Creatinine Glucose POC Glucose 145 H 173 H 119 H Lactic Acid Calcium Phosphorus Magnesium Total Bilirubin Direct Bilirubin AST ALT Alkaline Phosphatase Ammonia Lactate Dehydrogenase Total Creatine Kinase CK-MB (CK-2) CK-MB (CK-2) Rel Index Troponin T NT-Pro-B Natriuret Pep Total Protein Albumin Prealbumin LDL Cholesterol Direct HDL Cholesterol Vancomycin Trough Crossmatch 06/10/19 06/10/19 06/10/19 09:25 09:25 09:25 WBC 18.9 H RBC 2.61 L Hgb 7.3 L Hct 22.8 L MCH RDW 29.2 H Seg Neuts % (Manual) Lymphocytes % (Manual) Nucleated RBC % Seg Neutrophils # Man Lymphocytes # (Manual) Basophils # (Manual) PT INR POC ABG pH POC ABG pCO2 POC ABG pO2 VBG pH Sodium Chloride 95.5 L Carbon Dioxide 31 H BUN 38 H Creatinine Glucose 115 H POC Glucose Lactic Acid Calcium 7.8 L Phosphorus Magnesium Total Bilirubin 4.80 H Direct Bilirubin 3.7 H AST 127 H ALT 93 H Alkaline Phosphatase 180 H Ammonia Lactate Dehydrogenase Total Creatine Kinase CK-MB (CK-2) CK-MB (CK-2) Rel Index Troponin T NT-Pro-B Natriuret Pep Total Protein 5.3 L Albumin 1.5 L Prealbumin LDL Cholesterol Direct HDL Cholesterol Vancomycin Trough Crossmatch 06/10/19 06/10/19 06/10/19 11:23 16:38 21:11 WBC RBC Hgb Hct MCH RDW Seg Neuts % (Manual) Lymphocytes % (Manual) Nucleated RBC % Seg Neutrophils # Man Lymphocytes # (Manual) Basophils # (Manual) PT INR POC ABG pH POC ABG pCO2 POC ABG pO2 VBG pH Sodium Chloride Carbon Dioxide BUN Creatinine Glucose POC Glucose 175 H 164 H 159 H Lactic Acid Calcium Phosphorus Magnesium Total Bilirubin Direct Bilirubin AST ALT Alkaline Phosphatase Ammonia Lactate Dehydrogenase Total Creatine Kinase CK-MB (CK-2) CK-MB (CK-2) Rel Index Troponin T NT-Pro-B Natriuret Pep Total Protein Albumin Prealbumin LDL Cholesterol Direct HDL Cholesterol Vancomycin Trough Crossmatch 06/10/19 06/11/19 06/11/19 23:23 00:22 05:58 WBC RBC Hgb Hct MCH RDW Seg Neuts % (Manual) Lymphocytes % (Manual) Nucleated RBC % Seg Neutrophils # Man Lymphocytes # (Manual) Basophils # (Manual) PT INR POC ABG pH POC ABG pCO2 POC ABG pO2 VBG pH Sodium 135 L Chloride 95.7 L Carbon Dioxide 33 H BUN 36 H Creatinine 0.7 L Glucose 155 H POC Glucose 188 H Lactic Acid Calcium 7.7 L Phosphorus Magnesium Total Bilirubin 4.10 H Direct Bilirubin AST 89 H ALT 77 H Alkaline Phosphatase 154 H Ammonia Lactate Dehydrogenase Total Creatine Kinase CK-MB (CK-2) CK-MB (CK-2) Rel Index Troponin T NT-Pro-B Natriuret Pep Total Protein 5.3 L Albumin 1.7 L Prealbumin 0.106 L LDL Cholesterol Direct HDL Cholesterol Vancomycin Trough Crossmatch 06/11/19 06/11/19 06/11/19 06:53 11:17 16:21 WBC RBC Hgb Hct MCH RDW Seg Neuts % (Manual) Lymphocytes % (Manual) Nucleated RBC % Seg Neutrophils # Man Lymphocytes # (Manual) Basophils # (Manual) PT INR POC ABG pH POC ABG pCO2 POC ABG pO2 VBG pH Sodium Chloride Carbon Dioxide BUN Creatinine Glucose POC Glucose 198 H 157 H 190 H Lactic Acid Calcium Phosphorus Magnesium Total Bilirubin Direct Bilirubin AST ALT Alkaline Phosphatase Ammonia Lactate Dehydrogenase Total Creatine Kinase CK-MB (CK-2) CK-MB (CK-2) Rel Index Troponin T NT-Pro-B Natriuret Pep Total Protein Albumin Prealbumin LDL Cholesterol Direct HDL Cholesterol Vancomycin Trough Crossmatch 06/12/19 06/12/19 06/12/19 00:17 05:27 06:27 WBC RBC Hgb Hct MCH RDW Seg Neuts % (Manual) Lymphocytes % (Manual) Nucleated RBC % Seg Neutrophils # Man Lymphocytes # (Manual) Basophils # (Manual) PT INR POC ABG pH POC ABG pCO2 POC ABG pO2 VBG pH Sodium 136 L Chloride 95.6 L Carbon Dioxide BUN 39 H Creatinine Glucose 144 H POC Glucose 139 H 169 H Lactic Acid Calcium 8.3 L Phosphorus Magnesium Total Bilirubin Direct Bilirubin AST ALT Alkaline Phosphatase Ammonia Lactate Dehydrogenase Total Creatine Kinase CK-MB (CK-2) CK-MB (CK-2) Rel Index Troponin T NT-Pro-B Natriuret Pep Total Protein Albumin Prealbumin LDL Cholesterol Direct HDL Cholesterol Vancomycin Trough Crossmatch 06/12/19 06/13/19 06/13/19 11:52 00:27 06:00 WBC RBC Hgb Hct MCH RDW Seg Neuts % (Manual) Lymphocytes % (Manual) Nucleated RBC % Seg Neutrophils # Man Lymphocytes # (Manual) Basophils # (Manual) PT INR POC ABG pH POC ABG pCO2 POC ABG pO2 VBG pH Sodium Chloride Carbon Dioxide BUN Creatinine Glucose POC Glucose 146 H 151 H 133 H Lactic Acid Calcium Phosphorus Magnesium Total Bilirubin Direct Bilirubin AST ALT Alkaline Phosphatase Ammonia Lactate Dehydrogenase Total Creatine Kinase CK-MB (CK-2) CK-MB (CK-2) Rel Index Troponin T NT-Pro-B Natriuret Pep Total Protein Albumin Prealbumin LDL Cholesterol Direct HDL Cholesterol Vancomycin Trough Crossmatch 06/13/19 06/13/19 06/13/19 06:11 06:11 06:11 WBC 17.0 H RBC 2.32 L Hgb 6.8 L Hct 20.9 L MCH RDW 29.2 H Seg Neuts % (Manual) 92.0 H Lymphocytes % (Manual) 2.0 L Nucleated RBC % Seg Neutrophils # Man 15.6 H Lymphocytes # (Manual) 0.3 L Basophils # (Manual) 0.2 H PT INR POC ABG pH POC ABG pCO2 POC ABG pO2 VBG pH Sodium 134 L Chloride 96.1 L Carbon Dioxide BUN 42 H Creatinine Glucose 126 H POC Glucose Lactic Acid Calcium 8.0 L Phosphorus Magnesium Total Bilirubin Direct Bilirubin AST ALT Alkaline Phosphatase Ammonia Lactate Dehydrogenase 214 H Total Creatine Kinase CK-MB (CK-2) CK-MB (CK-2) Rel Index Troponin T NT-Pro-B Natriuret Pep Total Protein Albumin Prealbumin LDL Cholesterol Direct HDL Cholesterol Vancomycin Trough Crossmatch 06/13/19 06/13/19 11:17 11:25 WBC RBC Hgb Hct MCH RDW Seg Neuts % (Manual) Lymphocytes % (Manual) Nucleated RBC % Seg Neutrophils # Man Lymphocytes # (Manual) Basophils # (Manual) PT INR POC ABG pH POC ABG pCO2 POC ABG pO2 VBG pH Sodium Chloride Carbon Dioxide BUN Creatinine Glucose POC Glucose 185 H Lactic Acid Calcium Phosphorus Magnesium Total Bilirubin Direct Bilirubin AST ALT Alkaline Phosphatase Ammonia Lactate Dehydrogenase Total Creatine Kinase CK-MB (CK-2) CK-MB (CK-2) Rel Index Troponin T NT-Pro-B Natriuret Pep Total Protein Albumin Prealbumin LDL Cholesterol Direct HDL Cholesterol Vancomycin Trough Crossmatch See Detail
[2019-06-13] MEDS ORDERED: SODIUM CHLORIDE 0.9% IRRIG SOLN 2000 ML IR ONE (13:46)
[2019-06-13] MEDS ORDERED: ePHEDrine SULFATE 50 MG/1 ML INJ ONE (13:53)
[2019-06-13] MEDS ORDERED: PHENYLEPHRINE/NS 1,000 MCG/10 ML SYRINGE (OR USE) IV ONE (14:00)
--- NOTE | 2019-06-13 14:05 | Anesthesia Consultation ---
Anesthesia Consult and Med Hx Date of service: 06/13/19 - Airway Anesthetic Teeth Evaluation: Poor ROM Head & Neck: Adequate Mental/Hyoid Distance: Adequate Mallampati Class: Class III Intubation Access Assessment: Probably Good (previous easy intubation) - Pulmonary Exam CTA: Yes - Cardiac Exam Cardiac Exam: RRR (tachycardia) - Pre-Operative Health Status ASA Pre-Surgery Classification: ASA4, Emergency Proposed Anesthetic Plan: General - Pulmonary SOB: Yes (improved, no longer on o2) - Cardiovascular System Hx Hypertension: Yes Hx Coronary Artery Disease: No (non-ischemic cardiomyopathy EF 10-15%) Hx Cardia Arrhythmia: No Hx Pacemaker: No Hx Internal Defibrillator: No Hx Peripheral Vascular Disease: Yes - Central Nervous System CVA: No - Gastrointestinal Hx Ulcer: Yes (presented initially with perforated gastric ulcer) - Endocrine Hx Renal Disease: No Hx Liver Disease: Yes Hx Insulin Dependent Diabetes: Yes Hx Thyroid Disease: No - Hematic Hx Anemia: Yes - Other Systems Hx Obesity: No (failure to thrive)
[2019-06-13] MEDS ORDERED: NEOSTIGMINE 10MG/10 ML INJ MDV ONE (14:28)
[2019-06-13] MEDS ORDERED: GLYCOPYRROLATE 0.4 MG/2 ML INJ ONE (14:28)
[2019-06-13] MEDS ORDERED: MORPHINE 2 MG/1 ML INJ IV PRN (14:43)
[2019-06-13] MEDS ORDERED: guaiFENesin 100 MG/5 ML ORAL LIQD PO PRN (14:54)
[2019-06-13] MEDS ORDERED: BENZONATATE 100 MG CAP PO PRN (14:54)
--- NOTE | 2019-06-13 14:54 | Post Operative Note ---
Date of procedure: 06/13/19 Pre-op diagnosis: dehiscence of abdominal fascial wound with evisceration of omentum Post-op diagnosis: same Findings: 1. Intact omental patch repair of perforated gastric ulcer 2. Serous ascites in abdomen 3. Fascial wound dehiscence of 80% of wound 4. Eviscerated omentum viable Procedure: exploratory laparotomy, closure of abdominal fascial dehiscence Anesthesia: GETA Surgeon: JASIEL WHEELER Block Hacker: ROSS GAINES Estimated blood loss: minimal Pathology: none Condition: stable Disposition: PACU
--- NOTE | 2019-06-13 14:56 | Anesthesia Day of Surgery ---
Anesthesia Day of Surgery - Day of Surgery Patient Examined: Yes Patient H&P Reviewed: Yes Patient is NPO: Yes
[2019-06-13] MEDS ORDERED: ONDANSETRON 4 MG/2 ML INJ ONE (14:58)
[2019-06-13] MEDS ORDERED: FUROSEMIDE 20 MG/2 ML INJ ONE (15:13)
[2019-06-13] MEDS: ALBUTEROL 2.5 MG/3 ML NEBU IH PRN (15:45)
[2019-06-13] MEDS ORDERED: FUROSEMIDE 100 MG/10 ML INJ IV ONE (15:55)
--- NOTE | 2019-06-13 16:34 | XRay Report ---
CHEST 1 VIEW INDICATION: Endotracheal tube placement. COMPARISON: 06/08/2019. FINDINGS: Support devices: Endotracheal tube has been placed in satisfactory position. Left PICC tip projects o rajeev the SVC in expected position. Previously seen right IJ catheter has been removed. Heart: Stable. Lungs/Pleura: Bilateral pleural effusions persist. There are bibasilar airspace opacities. There is s ignificant retrocardiac left lower lobe atelectasis. No pneumothorax. IMPRESSION: 1. No significant change. Signer Name: Sudheer Lowery MD Signed: 06/13/2019 4:30 PM Workstation Name: [id number]
--- NOTE | 2019-06-13 16:35 | Event Note ---
Date: 06/13/19 Patient had wound dehiscence of the midline abdominal wall With eviscerated omentum in the middle of the incision Surgery has taken the patient to the OR for wound closure Patient was anemic with hemoglobin of 6.8, Received 2 units of PRBC transfusion. As per surgeon patient was in acute respiratory failure Requiring intubation, received IV Lasix, and patient is being transferred to ICU already discussed with Dr. Beyer critical care
--- NOTE | 2019-06-13 17:06 | Event Note ---
Date: 06/13/19 Patient developed hypoxia in the PACU and started to de-saturate to the 80s. He was only opening eyes but not following commands. He was reintubated by anesthesia. I discussed this with Dr. Mendoza and Dr. Beyer. Patient to be transferred to PACU. NGT should not be placed as patient had very recent repair of gastric perforation Continue sedation as coughing, straining abdominal muscles can cause dehiscence of abdominal wound Vent management per CCU team
--- NOTE | 2019-06-13 17:19 | Event Note ---
Date: 06/13/19 Approx 1605: Patient developed worsening respiratory distress, hypoxia to mid- 80s, and somnolence while in PACU. Minimal urine output to previously administered lasix IV. HR and BP at preop baseline. Per discussion with surgeon, concern for GI insufflation and compromise of surgical repair with NIPPV. Patient reintubated by myself and placed on ventilator by RT. ICU provider notified and orders placed for ICU admission. Etomidate 10mg IV, succinylcholine 100mg IV DL x 1 w/ MAC 3, grade 2 view. 8.0 oETT secured at 23cm @ incisor No secretions or gastric contents noted in airway ETT placement confirmed with equal BS, CO2 color change, and CXR. Phenylephrine 100mcg IV given x1 for transient hypotention after intubation. Otherwise remained HD stable with SpO2 improving to >92%. Initial vent settings: AC 500 x14, FiO2 50%, Peep 6 Pang catheter inserted by RN for UOP monitoring. Fentanyl gtt ordered for sedation.
[2019-06-13] MEDS ORDERED: MINERAL OIL/PETROLATUM, WHITE OPHTH OINT 3.5 GM OU PRN (17:20)
[2019-06-13] MEDS ORDERED: LIP THERAPY VASELINE TP PRN (17:20)
[2019-06-13 17:22] LABS: Hematocrit 28.9 % (35.5-45.6); Hemoglobin 9.2 gm/dl (11.8-15.2)
[2019-06-13] MEDS ORDERED: fentaNYL DRIP Premix 2,000 MCG/100 ML BAG IV SCH (18:00)
[2019-06-13] MEDS ORDERED: FUROSEMIDE 40 MG/4 ML INJ IV ONE (18:00)
[2019-06-13] MEDS ORDERED: INSULIN REGULAR, HUMAN 100 UNITS/1 ML SUB-Q ONE (18:00)
[2019-06-13] MEDS ORDERED: LACTATED RINGERS 1,000 ML ONE (18:16)
[2019-06-13] MEDS: fentaNYL 100 MCG/2 ML INJ IV PRN ×2 (18:25→18:40)
--- NOTE | 2019-06-13 18:31 | Post Anesthesia Evaluation ---
- Post Anesthesia Evaluation Patient Participated: No (Patient awake, calm, not yet following commands) Airway Patent: Yes Stable Respiratory Function: Yes Nausea/Vomiting: No Temp > 96.8F: Yes Pain Manageable: Yes Adequeate Hydration: Yes Anesthesia Complications: No Block Receding Appropriately: Not Applicable Patient on Ventilator: Yes (AC 500 x18, FiO2 35%, Peep 6) Other Comments: Patient reintubated in PACU for respiratory distress (see event note for details). Vent settings adjusted for ABG results. HD stable at preop baseline, no pressors/inotropes. H/H responded appropriately to transfusion. TPN and lipid gtts continued. Transferred to ICU for further management. Patient given fentanyl IV prior to transport for analgesia.
[2019-06-13] MEDS ORDERED: TOTAL PARENTERAL NUTRITION 1,560 ML IV SCH (20:00)
[2019-06-14] MEDS: INSULIN LISPRO 100 UNIT/ML SUB-Q SCH ×4 (00:44→19:00)
[2019-06-14] MEDS: IPRATROPIUM/ALBUTEROL SULFATE 3 ML AMPUL.NEB IH SCH ×4 (01:09→20:49)
[2019-06-14 05:36] LABS: ABG Base Excess 3.3 mmol/L (-2.0-3.0); ABG HCO3 27.2 mmol/L (20.0-26.0); ABG Methemoglobin 0.6 % (0.0-1.5); ABG PCO2 39.1 mm Hg; ABG PH 7.46 pH Units (7.350-7.450); ABG PO2 107.6 mm Hg (80.0-90.0)
[2019-06-14] MEDS: CEFEPIME/NS 2 GM/100 ML 2 GM/100 ML BAG IV SCH ×3 (06:07→19:14)
[2019-06-14] MEDS: HEPARIN 5,000 UNIT/1 ML VIAL SUB-Q SCH ×3 (06:08→21:49)
[2019-06-14] MEDS: metroNIDAZOLE/NS 500 MG/100 ML 500 MG/100 ML BAG IV SCH (06:12)
[2019-06-14 06:17] LABS: Basophils # (Auto) 0.4 K/mm3 (0.0-0.1); Basophils % (Auto) 2.3 % (0.0-1.8); Eosinophils # (Auto) 0.2 K/mm3 (0.0-0.4); Eosinophils % (Auto) 1.4 % (0.0-4.3); Hematocrit 31.1 % (35.5-45.6); Hemoglobin 10.2 gm/dl (11.8-15.2); Lymphocytes # (Auto) 1.2 K/mm3 (1.2-5.4); Lymphocytes % (Auto) 7.4 % (13.4-35.0); Mean Corpuscular HGB Conc 33 % (32-34); Mean Corpuscular Volume 90 fl (84-94); Monocytes # (Auto) 1.4 K/mm3 (0.0-0.8); Monocytes % (Auto) 8.5 % (0.0-7.3); Platelet Count 355 K/mm3 (140-440); Red Blood Count 3.45 M/mm3 (3.65-5.03)
[2019-06-14 06:31] LABS: BUN/Creatinine Ratio 43; Blood Urea Nitrogen 43 mg/dL (9-20); Calcium 7.7 mg/dL (8.4-10.2); Hemolysis Index 1
[2019-06-14 06:40] LABS: Red Cell Distribution Width 24.2 % (13.2-15.2)
[2019-06-14] MEDS: FUROSEMIDE 40 MG TAB PO SCH (07:32)
--- NOTE | 2019-06-14 08:52 | Progress Note ---
Assessment and Plan - Patient Problems (1) Perforated gastric ulcer Current Visit: Yes Status: Acute Plan to address problem: 63 yo M s/p exploratory laparotomy, omental patch of perforated gastric ulcer POD 12, s/p reclosure of abdominal wall - POD#1. 1. sepsis 2. perforated gastric ulcer 3. severe malnutrition 4. b/l pleural effusions 5. bedbound 6. infected b/l LE wounds with likely chronic limb ischemia 7. cardiomyopathy 8. CHF 9. abdominal dehiscence Arterial duplex - no Plan: 1. Neuro - appears appropriate 2. CV - BP and HR stable. Cardiology on board 3. Resp - encourage pulm toilet 4. GI - Resume diet after extubation. Abdominal binder must stay on at all times. Do not place NGT/OGT 5. Endo - Blood glucose monitoring per protocol 6. ID - no new issues. 7. - garcia for strict I/Os. 8. Musc - DVT ppx. Offloading. Dr. Oakes managing LE for debridement vs amputation. Please call with questions. Subjective Date of service: 06/14/19 Patient Reports: Positive: other (no events o/n. ) Objective Vital Signs - 12hr 06/13/19 06/13/19 06/13/19 22:00 23:00 23:07 Temperature 98.3 F Pulse Rate 108 H 104 H Pulse Rate [ Anterior Throughout] Pulse Rate [ 105 H From Monitor] Respiratory 18 19 Rate Respiratory Rate [Anterior Throughout] Blood Pressure Blood Pressure 129/90 118/82 [Right] O2 Sat by Pulse 100 100 Oximetry 06/14/19 06/14/19 06/14/19 00:00 00:49 01:00 Temperature Pulse Rate 113 H 105 H 105 H Pulse Rate [ Anterior Throughout] Pulse Rate [ From Monitor] Respiratory 18 18 Rate Respiratory Rate [Anterior Throughout] Blood Pressure 127/91 Blood Pressure 127/91 122/83 [Right] O2 Sat by Pulse 100 100 100 Oximetry 06/14/19 06/14/19 06/14/19 01:21 02:00 03:00 Temperature Pulse Rate 110 H 108 H Pulse Rate [ 103 H Anterior Throughout] Pulse Rate [ From Monitor] Respiratory 20 19 Rate Respiratory 18 Rate [Anterior Throughout] Blood Pressure Blood Pressure 132/91 117/80 [Right] O2 Sat by Pulse 100 99 Oximetry 06/14/19 06/14/19 06/14/19 03:15 04:00 04:36 Temperature 100.7 F H 98.1 F Pulse Rate 109 H 111 H Pulse Rate [ Anterior Throughout] Pulse Rate [ From Monitor] Respiratory 21 Rate Respiratory Rate [Anterior Throughout] Blood Pressure 116/83 Blood Pressure 122/86 [Right] O2 Sat by Pulse 98 100 Oximetry 06/14/19 06/14/19 06/14/19 05:00 06:00 08:00 Temperature 99.7 F H Pulse Rate 108 H 108 H Pulse Rate [ Anterior Throughout] Pulse Rate [ From Monitor] Respiratory 20 20 Rate Respiratory Rate [Anterior Throughout] Blood Pressure Blood Pressure 124/84 123/84 [Right] O2 Sat by Pulse 97 98 Oximetry 06/14/19 08:47 Temperature Pulse Rate 112 H Pulse Rate [ Anterior Throughout] Pulse Rate [ From Monitor] Respiratory 21 Rate Respiratory Rate [Anterior Throughout] Blood Pressure Blood Pressure [Right] O2 Sat by Pulse 98 Oximetry - General physical appearance no distress, no pain, other (awake and following commands) - Respiratory normal expansion, normal respiratory effort - Abdomen soft, not distended, other (abdominal binder on) - Labs 06/14/19 05:45 06/14/19 05:45 Diabetes panel 06/14/19 Range/Units 05:45 Sodium 140 (137-145) mmol/L Potassium 3.7 (3.6-5.0) mmol/L Chloride 100.5 (98-107) mmol/L Carbon Dioxide 27 (22-30) mmol/L BUN 43 H (9-20) mg/dL Creatinine 1.0 (0.8-1.5) mg/dL Glucose 90 (75-100) mg/dL Calcium 7.7 L (8.4-10.2) mg/dL Calcium panel 06/14/19 Range/Units 05:45 Calcium 7.7 L (8.4-10.2) mg/dL Phosphorus 3.40 (2.5-4.5) mg/dL Pituitary panel 06/14/19 Range/Units 05:45 Sodium 140 (137-145) mmol/L Potassium 3.7 (3.6-5.0) mmol/L Chloride 100.5 (98-107) mmol/L Carbon Dioxide 27 (22-30) mmol/L BUN 43 H (9-20) mg/dL Creatinine 1.0 (0.8-1.5) mg/dL Glucose 90 (75-100) mg/dL Calcium 7.7 L (8.4-10.2) mg/dL Adrenal panel 06/14/19 Range/Units 05:45 Sodium 140 (137-145) mmol/L Potassium 3.7 (3.6-5.0) mmol/L Chloride 100.5 (98-107) mmol/L Carbon Dioxide 27 (22-30) mmol/L BUN 43 H (9-20) mg/dL Creatinine 1.0 (0.8-1.5) mg/dL Glucose 90 (75-100) mg/dL Calcium 7.7 L (8.4-10.2) mg/dL
[2019-06-14] MEDS: BUDESONIDE 0.5 MG/2 ML NEBU IH SCH ×2 (09:22→20:49)
[2019-06-14] MEDS: ARFORMOTEROL 15 MCG/2 ML NEBU IH SCH ×2 (09:22→20:49)
[2019-06-14] MEDS: PANTOPRAZOLE 40 MG INJ IV SCH ×2 (10:01→21:50)
[2019-06-14] MEDS: SODIUM HYPOCHLORITE, DAKIN'S 1/2 STRENGTH (0.25%) 473 ML TOPICAL SOLN TP SCH ×2 (10:02→21:49)
[2019-06-14] MEDS: LOSARTAN 25 MG TAB PO SCH (10:02)
[2019-06-14] MEDS: carvediloL 3.125 MG TAB PO SCH (10:02)
--- NOTE | 2019-06-14 11:01 | Progress Note ---
Assessment and Plan Assessment and plan: Patient is a 63 yo man with a history of NICMP, chronic HFrEF 10-15%, NSVT declines LifeVest/AICD, CKD 3, HTN and mod to severe TR, b/l LE wounds, bedbound who presents to [facility] ED with c/o abdominal pain for 3 days. He had multiple bilateral lower extremity wound and stage I to 2 lower extremity ulcer covered with pus. CT abdomen and pelvis suggestive of pneumoperitoneum. General surgery was consulted and patient was taken for OR for exploratory laparotomy by general surgeon. He also received empiric antibiotics. He was intubated per-operatively,extubated 06/05, transferred to Surgical floor. Patient had wound dehiscence of the midline abdominal wall With eviscerated omentum in the middle of the incision Surgery has taken the patient to the OR s/p wound closure, acute respiratory failure requiring intubation, transferred to ICU --Acute hypoxic respiratory failure; requiring intubation and mechanical ventilation Continue ventilatory support, weaning as tolerated and extubate Pulmonary critical following --Perforated gastric ulcer. s/p exploratory laparotomy, omental patch of perforated gastric ulcer by Dr. Sims, cont empiric abx, on TPN --Sepsis with bilateral lower extremity cellulitis/infected ulcer /perforated gastric ulcer Continue empiric antibiotics, obtain blood cultures, wound culture ID Physician following continue current antibiotics --bilateral lower extremity cellulitis/infected ulcer - from PVD s/p bilateral I and D done 06/[address] Oakes Status post surgical debridement on 06/13/2019 --Moderate b/l pleural effusion CHFrEF 10-15%,Cardiology following monitor ins/os, daily lasix iv to prevent fluid overload --Chronic systolic CHF cardiology following --Severe protein calorie malnutrition nutrition consult, may need TPN --CKD stage III, monitor renal function, avoid nephrotoxin renal function stable --Jaundice Elevated bilirubin, Total Bili of 7.7 -4.1 GI evaluated and signed off --Severe metabolic acidosis likely due to perforated bowel bicarbonate as needed --Acute respiratory failure following surgery CC following, cont nebs, Extubated 06/05 --DVT Prophylaxis: Heparin Consults and recommendations noted and appreciated Monitor closely and adjust management as needed Plan of care is reviewed for the patient's nurse Critical care time 35 minutes History Interval history: Patient seen and examined medical records reviewed Patient is orally intubated on ventilatory support No new overnight events reported by the nursing staff Vital signs noted Hospitalist Physical - Constitutional Vitals: Temp Pulse Resp BP Pulse Ox 99.7 F H 109 H 18 115/88 99 06/14/19 08:00 06/14/19 09:45 06/14/19 09:45 06/14/19 09:45 06/14/19 09:45 General appearance: Present: no acute distress, well-nourished, other (intubated on vent) - EENT Eyes: Present: PERRL, EOM intact - Neck Neck: Present: supple, normal ROM - Respiratory Respiratory effort: normal Respiratory: bilateral: diminished, rhonchi, negative: rales, wheezing - Cardiovascular Rhythm: regular Heart Sounds: Present: S1 & S2 - Extremities Extremities: no ischemia, No edema, abnormal (surgical dressing in place) - Abdominal General gastrointestinal: soft, non-tender, non-distended, normal bowel sounds - Integumentary Integumentary: Present: clear, warm - Psychiatric Psychiatric: other (intubated on vent) - Neurologic Neurologic: other (intubated on vent) Results - Labs CBC & Chem 7: 06/14/19 05:45 06/14/19 05:45 Labs: Laboratory Last Values WBC 16.7 K/mm3 (4.5-11.0) H 06/14/19 05:45 RBC 3.45 M/mm3 (3.65-5.03) L 06/14/19 05:45 Hgb 10.2 gm/dl (11.8-15.2) L 06/14/19 05:45 Hct 31.1 % (35.5-45.6) L 06/14/19 05:45 MCV 90 fl (84-94) 06/14/19 05:45 MCH 30 pg (28-32) 06/14/19 05:45 MCHC 33 % (32-34) 06/14/19 05:45 RDW 24.2 % (13.2-15.2) H 06/14/19 05:45 Plt Count 355 K/mm3 (140-440) 06/14/19 05:45 Lymph % (Auto) 7.4 % (13.4-35.0) L 06/14/19 05:45 [place] % (Auto) 8.5 % (0.0-7.3) H 06/14/19 05:45 Eos % (Auto) 1.4 % (0.0-4.3) 06/14/19 05:45 Baso % (Auto) 2.3 % (0.0-1.8) H 06/14/19 05:45 Lymph # 1.2 K/mm3 (1.2-5.4) 06/14/19 05:45 [place] # 1.4 K/mm3 (0.0-0.8) H 06/14/19 05:45 Eos # 0.2 K/mm3 (0.0-0.4) 06/14/19 05:45 Baso # 0.4 K/mm3 (0.0-0.1) H 06/14/19 05:45 Add Manual Diff Complete 06/13/19 06:11 Total Counted 100 06/13/19 06:11 Seg Neutrophils % 80.4 % (40.0-70.0) H 06/14/19 05:45 Seg Neuts % (Manual) 92.0 % (40.0-70.0) H 06/13/19 06:11 Band Neutrophils % 0 % 06/13/19 06:11 Lymphocytes % (Manual) 2.0 % (13.4-35.0) L 06/13/19 06:11 Reactive Lymphs % (Man) 0 % 06/13/19 06:11 Monocytes % (Manual) 4.0 % (0.0-7.3) 06/13/19 06:11 Eosinophils % (Manual) 1.0 % (0.0-4.3) 06/13/19 06:11 Basophils % (Manual) 1.0 % (0.0-1.8) 06/13/19 06:11 Metamyelocytes % 0 % 06/13/19 06:11 Myelocytes % 0 % 06/13/19 06:11 Promyelocytes % 0 % 06/13/19 06:11 Blast Cells % 0 % 06/13/19 06:11 Nucleated RBC % Not Reportable 06/13/19 06:11 Seg Neutrophils # 13.4 K/mm3 (1.8-7.7) H 06/14/19 05:45 Seg Neutrophils # Man 15.6 K/mm3 (1.8-7.7) H 06/13/19 06:11 Band Neutrophils # 0.0 K/mm3 06/13/19 06:11 Lymphocytes # (Manual) 0.3 K/mm3 (1.2-5.4) L 06/13/19 06:11 Abs React Lymphs (Man) 0.0 K/mm3 06/13/19 06:11 Monocytes # (Manual) 0.7 K/mm3 (0.0-0.8) 06/13/19 06:11 Eosinophils # (Manual) 0.2 K/mm3 (0.0-0.4) 06/13/19 06:11 Basophils # (Manual) 0.2 K/mm3 (0.0-0.1) H 06/13/19 06:11 Metamyelocytes # 0.0 K/mm3 06/13/19 06:11 Myelocytes # 0.0 K/mm3 06/13/19 06:11 Promyelocytes # 0.0 K/mm3 06/13/19 06:11 Blast Cells # 0.0 K/mm3 06/13/19 06:11 WBC Morphology Not Reportable 06/13/19 06:11 Hypersegmented Neuts Not Reportable 06/13/19 06:11 Hyposegmented Neuts Not Reportable 06/13/19 06:11 Hypogranular Neuts Not Reportable 06/13/19 06:11 Smudge Cells Not Reportable 06/13/19 06:11 Toxic Granulation Not Reportable 06/13/19 06:11 Toxic Vacuolation Not Reportable 06/13/19 06:11 Dohle Bodies Not Reportable 06/13/19 06:11 Pelger-Huet Anomaly Not Reportable 06/13/19 06:11 Romero Rods Not Reportable 06/13/19 06:11 Platelet Estimate Consistent w auto 06/13/19 06:11 Clumped Platelets Not Reportable 06/13/19 06:11 Plt Clumps, EDTA Not Reportable 06/13/19 06:11 Large Platelets Not Reportable 06/13/19 06:11 Giant Platelets Not Reportable 06/13/19 06:11 Platelet Satelliting Not Reportable 06/13/19 06:11 Plt Morphology Comment Not Reportable 06/13/19 06:11 RBC Morphology Not Reportable 06/13/19 06:11 Dimorphic RBCs Not Reportable 06/13/19 06:11 Polychromasia Not Reportable 06/13/19 06:11 Hypochromasia 2+ 06/13/19 06:11 Poikilocytosis Not Reportable 06/13/19 06:11 Anisocytosis 1+ 06/13/19 06:11 Microcytosis Not Reportable 06/13/19 06:11 Macrocytosis Not Reportable 06/13/19 06:11 Spherocytes Not Reportable 06/13/19 06:11 Pappenheimer Bodies Not Reportable 06/13/19 06:11 Sickle Cells Not Reportable 06/13/19 06:11 Target Cells 1+ 06/13/19 06:11 Tear Drop Cells Not Reportable 06/13/19 06:11 Ovalocytes Not Reportable 06/13/19 06:11 Helmet Cells Not Reportable 06/13/19 06:11 [place] Bodies Not Reportable 06/13/19 06:11 [place] Rings Not Reportable 06/13/19 06:11 [place] Cells Not Reportable 06/13/19 06:11 Bite Cells Not Reportable 06/13/19 06:11 Crenated Cell Not Reportable 06/13/19 06:11 Elliptocytes Not Reportable 06/13/19 06:11 Acanthocytes (Spur) Not Reportable 06/13/19 06:11 Rouleaux Not Reportable 06/13/19 06:11 Hemoglobin C Crystals Not Reportable 06/13/19 06:11 Schistocytes Not Reportable 06/13/19 06:11 Malaria parasites Not Reportable 06/13/19 06:11 Bunny Bodies Not Reportable 06/13/19 06:11 Hem Pathologist Commnt No 06/13/19 06:11 PT 17.9 Sec. (12.2-14.9) H 06/02/19 07:15 INR 1.50 (0.87-1.13) H 06/02/19 07:15 APTT 33.2 Sec. (24.2-36.6) 06/02/19 07:15 POC ABG pH 7.320 (7.35-7.45) L 06/13/19 17:23 ABG pH 7.460 pH Units (7.350-7.450) H 06/14/19 04:45 POC ABG pCO2 53.9 (35-45) H 06/13/19 17:23 ABG pCO2 39.1 mm Hg 06/14/19 04:45 POC ABG pO2 121 (80-105) H 06/13/19 17:23 ABG pO2 107.6 mm Hg (80.0-90.0) H 06/14/19 04:45 POC ABG HCO3 27.8 (22-26 mml/L) 06/13/19 17:23 ABG HCO3 27.2 mmol/L (20.0-26.0) H 06/14/19 04:45 POC ABG Total CO2 29 (23-27mmol/L) 06/13/19 17:23 POC ABG O2 Sat 98 06/13/19 17:23 ABG O2 Saturation 98.0 % (95.0-99.0) 06/14/19 04:45 ABG O2 Content 21.2 (0.0-44) 06/14/19 04:45 POC ABG Base Excess 2 ((-2) - (+3)mmol/L) 06/13/19 17:23 ABG Base Excess 3.3 mmol/L (-2.0-3.0) H 06/14/19 04:45 ABG Hemoglobin 15.7 gm/dl (14.0-18.0) 06/14/19 04:45 ABG Carboxyhemoglobin 2.0 % (0.0-5.0) 06/14/19 04:45 ABG Methemoglobin 0.6 % (0.0-1.5) 06/14/19 04:45 VBG pH 7.310 (7.320-7.420) L 06/02/19 07:15 Oxyhemoglobin 95.5 % (95.0-99.0) 06/14/19 04:45 FiO2 30 % 06/14/19 04:45 Sodium 140 mmol/L (137-145) 06/14/19 05:45 Potassium 3.7 mmol/L (3.6-5.0) 06/14/19 05:45 Chloride 100.5 mmol/L (98-107) 06/14/19 05:45 Carbon Dioxide 27 mmol/L (22-30) 06/14/19 05:45 Anion Gap 16 mmol/L 06/14/19 05:45 BUN 43 mg/dL (9-20) H 06/14/19 05:45 Creatinine 1.0 mg/dL (0.8-1.5) 06/14/19 05:45 Estimated GFR > 60 ml/min 06/14/19 05:45 BUN/Creatinine Ratio 43 % 06/14/19 05:45 Glucose 90 mg/dL (75-100) 06/14/19 05:45 POC Glucose 224 (70-105) H 06/13/19 16:57 Lactic Acid 1.10 mmol/L (0.7-2.0) 06/02/19 09:17 Calcium 7.7 mg/dL (8.4-10.2) L 06/14/19 05:45 Phosphorus 3.40 mg/dL (2.5-4.5) 06/14/19 05:45 Magnesium 1.90 mg/dL (1.7-2.3) 06/14/19 05:45 Total Bilirubin 4.10 mg/dL (0.1-1.2) H 06/11/19 00:22 Direct Bilirubin 3.7 mg/dL (0-0.2) H 06/10/19 09:25 Indirect Bilirubin 1.1 mg/dL 06/10/19 09:25 AST 89 units/L (5-40) H 06/11/19 00:22 ALT 77 units/L (7-56) H 06/11/19 00:22 Alkaline Phosphatase 154 units/L (35-129) H 06/11/19 00:22 Ammonia 16.0 umol/L (25-60) L 06/02/19 07:15 Lactate Dehydrogenase 214 units/L (91-180) H 06/13/19 06:11 Total Creatine Kinase 53 units/L (55-170) L 06/02/19 07:15 CK-MB (CK-2) 5.1 ng/mL (0.0-4.0) H 06/02/19 07:15 CK-MB (CK-2) Rel Index 9.6 (0-4) H 06/02/19 07:15 Troponin T 0.065 ng/mL (0.00-0.029) H 06/02/19 07:15 NT-Pro-B Natriuret Pep > 41635 pg/mL (0-900) H 06/02/19 07:15 Total Protein 5.3 g/dL (6.3-8.2) L 06/11/19 00:22 Albumin 1.7 g/dL (3.9-5) L 06/11/19 00:22 Albumin/Globulin Ratio 0.5 % 06/11/19 00:22 Prealbumin 0.106 g/L (0.200-0.400) L 06/11/19 05:58 Triglycerides 78 mg/dL (2-149) 06/11/19 05:58 Cholesterol 73 mg/dL (50-199) 06/02/19 07:15 LDL Cholesterol Direct 31 mg/dL (50-130) L 06/02/19 07:15 HDL Cholesterol 8 mg/dL (40-59) L 06/02/19 07:15 Cholesterol/HDL Ratio 9.12 % 06/02/19 07:15 Lipase 56 units/L (13-60) 06/02/19 07:15 Urine Color [place] (Yellow) 06/02/19 10:37 Urine Turbidity Clear (Clear) 06/02/19 10:37 Urine pH 5.0 (5.0-7.0) 06/02/19 10:37 Ur Specific [place] 1.019 (1.003-1.030) 06/02/19 10:37 Urine Protein <15 mg/dl mg/dL (Negative) 06/02/19 10:37 Urine Glucose (UA) 50 mg/dL (Negative) 06/02/19 10:37 Urine Ketones Neg mg/dL (Negative) 06/02/19 10:37 Urine Blood Neg (Negative) 06/02/19 10:37 Urine Nitrite Neg (Negative) 06/02/19 10:37 Urine Bilirubin Neg (Negative) 06/02/19 10:37 Urine Urobilinogen 4.0 mg/dL (<2.0) 06/02/19 10:37 Ur Leukocyte Esterase Neg (Negative) 06/02/19 10:37 Urine WBC (Auto) 2.0 /HPF (0.0-6.0) 06/02/19 10:37 Urine RBC (Auto) 2.0 /HPF (0.0-6.0) 06/02/19 10:37 Urine Bacteria (Auto) 1+ /HPF (Negative) 06/02/19 10:37 Vancomycin Trough 11.6 ug/mL (5.0-20.0) 06/09/19 08:58 Blood Type A POSITIVE 06/13/19 11:17 Antibody Screen Negative 06/13/19 11:17 Crossmatch See Detail 06/13/19 11:17 Active Medications - Current Medications Current Medications: Generic Name Dose Route Start Last Admin Trade Name Freq PRN Reason Stop Dose Admin Albuterol 2.5 mg 06/02/19 11:28 06/13/19 15:45 Proventil IH 2.5 mg Q4H PRN Administration Shortness Of Breath Albuterol/Ipratropium 1 ampul 06/06/19 20:00 06/14/19 09:23 Duoneb *Not For Prn Use* IH Not Given Q6HRT [facility] Arformoterol Tartrate 15 mcg 06/02/19 20:00 06/14/19 09:22 Brovana Nebu IH 15 mcg Q12HRT ROSE Administration Benzonatate 100 mg 06/13/19 14:54 Tessalon Perles PO Q8HR PRN Cough Budesonide 0.5 mg 06/02/19 20:00 06/14/19 09:22 Pulmicort IH 0.5 mg Q12HRT ROSE Administration Carvedilol 3.125 mg 06/11/19 22:00 06/14/19 10:02 Coreg PO Not Given BID [facility] Furosemide 40 mg 06/12/19 06:00 06/14/19 07:32 Lasix PO Not Given DAILY@0600 [facility] Guaifenesin 200 mg 06/13/19 14:54 Robitussin PO Q4H PRN Cough Heparin Sodium (Porcine) 5,000 unit 06/09/19 22:00 06/14/19 06:08 Heparin SUB-Q 5,000 unit Q8HR ROSE Administration Hydromorphone HCl 0.25 mg 06/05/19 10:55 06/13/19 06:05 Dilaudid IV 0.25 mg Q3H PRN Administration Pain , Severe (7-10) Hydrophilic Ointment 1 applic 06/13/19 17:20 Vaseline Lip Therapy TP Q2HR PRN Dry Lips Chlorpromazine HCl 25 mg/ 51 mls @ 100 mls/hr 06/08/19 15:00 Sodium Chloride IV Q4H PRN Hiccups Metronidazole 500 mg in 100 mls @ 100 mls/hr 06/09/19 14:00 06/14/19 06:12 Flagyl 500 Mg/100 Ml IV 100 mls/hr Q8HR [facility] Administration Protocol Cefepime HCl 2 gm in 100 mls @ 200 mls/hr 06/10/19 18:00 06/14/19 06:07 Cefepime/Ns 2 Gm/100 Ml IV 200 mls/hr Q12H ROSE Administration Protocol Amino Acids/Electrolytes/Dextrose 1,560 mls @ 65 mls/hr 06/13/19 20:00 06/13/19 20:00 Tpn Adult IV 06/14/19 19:59 65 mls/hr DAILY@2000 [facility] Administration Protocol Fentanyl Citrate 2,000 mcg in 100 mls @ 3.055 mls/hr 06/13/19 18:00 06/14/19 08:52 Fentanyl Drip Premix IV 3 mcg/kg/hr TITR ROSE 9.165 mls/hr Titration Protocol 1 MCG/KG/HR Insulin Human Lispro 0 unit 06/08/19 06:00 06/14/19 08:39 Humalog SUB-Q Not Given Q6HR [facility] Protocol Losartan Potassium 12.5 mg 06/12/19 10:00 06/14/19 10:02 Cozaar PO Not Given QDAY [facility] Multi-Ingred Cream/Lotion/Oil/Oint 1 applic 06/13/19 17:20 Artificial Tears Ophth Oint OU Q4HR PRN Dry Eye(s) Ondansetron HCl 4 mg 06/11/19 15:26 06/11/19 19:34 Zofran IV 4 mg Q6H PRN Administration Nausea And Vomiting Pantoprazole Sodium 40 mg 06/04/19 10:00 06/14/19 10:01 Protonix IV 40 mg BID [facility] Administration Sodium Hypochlorite 1 applic 06/05/19 22:00 06/14/19 10:02 Dakin's Half Strength TP 1 applicatio BID [facility] Administration Nutrition/Malnutrition Assess - Dietary Evaluation Nutrition/Malnutrition Findings: Nutrition Notes Start: 06/03/19 11:22 Freq: Status: Active Protocol: Document 06/14/19 09:58 WILLIAMS (Rec: 06/14/19 10:14 WILLIAMS [id number]) Co-Sign 06/14/19 09:58 LP Nutrition Notes Initial or Follow up Reassessment Current Diagnosis CKD(stage I-IV),Decubitus( Pressure Ulcer),Sepsis, Hypertension,Heart Failure Other Pertinent Diagnosis Perforated viscus S/P exp lap Current Diet CPN at 65 ml/hr Labs/Tests BUN 43 Pertinent Medications Dilaudid Height 5 ft 7 in Weight 61.1 kg [place] Body Weight (kg) 67.27 BMI 21.1 Subjective/Other Information CPN day 11. Pt has been reintubated d/t worsening respiratory distress. Protein was increased due to intubation. Percent of energy/protein needs met: 97%/100% Burn Absent Trauma Absent GI Symptoms None Current % PO Negligible Minimum of two criteria Yes Body Fat Depletion Mild depletion (non-severe) Muscle Mass Mild Depletion (non-severe) Fluid Accumulation Mild (non-severe) Reduced Door Liner Strength Measurably Reduced (severe) #1 Nutrition Diagnosis Malnutrition Diagnosis Progress(for reassessment Continues documentation) Is patient on ventilator? No Is Patient Ambulatory and/or Out of Bed No REE-([facility]-confined to bed) 1648.764 Kcal/Kg value to use for calculation 26 Approximate Energy Requirements Using 1589 kcal/Kg Calculation Used for Recommendations Kcal/kg Additional Notes Protein: 36-92g (0.6-1.5g/kg) pt with CKD and malnutrition Fluid: 1 ml/kcal or per MD Nutrition Intervention Change Diet Order: Continue CPN Nutrition Support: CPN at 65 ml/hr: 2065 mOsm, 2070 kcal, 95g AA, 50g fat, 80 mEq K, MVI Kcal 2,042 Protein (gm) 95 Carbohydrates (gm) 350 Fat (gm) 50 Fluid (mL) 1,560 Fiber (gm) 0 Add Supplement/Snack (indicate name/kcal D/C Ensure Enlive TID /protein ) Goal #1 Meet at least 80% of energy and protein needs via CPN Anticipated Discharge Needs: Unable to determine at this time Follow-Up By: 06/15/19 Additional Comments Labs in AM: BMP, Mg, Phos
[2019-06-14] MEDS ORDERED: FUROSEMIDE 40 MG/4 ML INJ IV ONE (11:27)
--- NOTE | 2019-06-14 12:43 | Progress Note ---
Assessment and Plan Lasix 40mg IV x1 Extubate abx therapy Abdominal binder must remain on at all times. Will re-iterate this to the nursing staff. Prognosis remains guarded to poor. CCT 31 minutes. Subjective Date of service: 06/14/19 Principal diagnosis: elevated LFTs Interval history: Went to OR yesterday for Dehiscence. Was extubated in the PACU but then ericka ntubated. Likely from pulmonary edema and prolonged anesthesia. This am awake and alert. Following commands. Off sedation. Objective Vital Signs - 12hr 06/14/19 06/14/19 06/14/19 00:49 01:00 01:21 Temperature Pulse Rate 105 H 105 H Pulse Rate [ 103 H Anterior Throughout] Respiratory 18 Rate Respiratory 18 Rate [Anterior Throughout] Blood Pressure 127/91 Blood Pressure 122/83 [Right] O2 Sat by Pulse 100 100 Oximetry 06/14/19 06/14/19 06/14/19 02:00 03:00 03:15 Temperature 100.7 F H Pulse Rate 110 H 108 H Pulse Rate [ Anterior Throughout] Respiratory 20 19 Rate Respiratory Rate [Anterior Throughout] Blood Pressure Blood Pressure 132/91 117/80 [Right] O2 Sat by Pulse 100 99 Oximetry 06/14/19 06/14/19 06/14/19 04:00 04:36 05:00 Temperature 98.1 F Pulse Rate 109 H 111 H 108 H Pulse Rate [ Anterior Throughout] Respiratory 21 20 Rate Respiratory Rate [Anterior Throughout] Blood Pressure 116/83 Blood Pressure 122/86 124/84 [Right] O2 Sat by Pulse 98 100 97 Oximetry 06/14/19 06/14/19 06/14/19 06:00 08:00 08:47 Temperature 99.7 F H Pulse Rate 108 H 112 H Pulse Rate [ Anterior Throughout] Respiratory 20 21 Rate Respiratory Rate [Anterior Throughout] Blood Pressure Blood Pressure 123/84 [Right] O2 Sat by Pulse 98 98 Oximetry 06/14/19 06/14/19 06/14/19 09:00 09:15 09:23 Temperature Pulse Rate 111 H 110 H Pulse Rate [ 106 H Anterior Throughout] Respiratory 19 19 Rate Respiratory 20 Rate [Anterior Throughout] Blood Pressure 126/79 115/88 Blood Pressure [Right] O2 Sat by Pulse 98 99 Oximetry 06/14/19 06/14/19 06/14/19 09:24 09:31 09:45 Temperature Pulse Rate 108 H 104 H 109 H Pulse Rate [ Anterior Throughout] Respiratory 18 18 Rate Respiratory Rate [Anterior Throughout] Blood Pressure 115/88 115/88 115/88 Blood Pressure [Right] O2 Sat by Pulse 99 100 99 Oximetry 06/14/19 06/14/19 06/14/19 10:00 10:15 10:31 Temperature Pulse Rate 110 H 107 H 112 H Pulse Rate [ Anterior Throughout] Respiratory 17 19 18 Rate Respiratory Rate [Anterior Throughout] Blood Pressure 124/88 124/88 124/88 Blood Pressure [Right] O2 Sat by Pulse 97 97 100 Oximetry 06/14/19 06/14/19 06/14/19 10:45 11:00 11:15 Temperature Pulse Rate 112 H 107 H 107 H Pulse Rate [ Anterior Throughout] Respiratory 18 18 19 Rate Respiratory Rate [Anterior Throughout] Blood Pressure 124/88 126/86 124/88 Blood Pressure [Right] O2 Sat by Pulse 100 98 97 Oximetry 06/14/19 06/14/19 06/14/19 11:31 11:45 12:00 Temperature Pulse Rate 104 H 107 H 111 H Pulse Rate [ Anterior Throughout] Respiratory 19 20 19 Rate Respiratory Rate [Anterior Throughout] Blood Pressure 124/88 124/88 133/89 Blood Pressure [Right] O2 Sat by Pulse 98 97 98 Oximetry 06/14/19 06/14/19 12:15 12:31 Temperature Pulse Rate 108 H 108 H Pulse Rate [ Anterior Throughout] Respiratory 19 18 Rate Respiratory Rate [Anterior Throughout] Blood Pressure 133/89 133/89 Blood Pressure [Right] O2 Sat by Pulse 97 97 Oximetry Constitutional: no acute distress, alert Eyes: non-icteric ENT: oropharynx moist Neck: supple Effort: normal Ascultation: Bilateral: clear, other (coarse BS bilaterally) Cardiovascular: regular rate and rhythm (no mrg) Gastrointestinal: absent bowel sounds, non-tender Integumentary: other (necrotic ulcers lower extremities) Extremities: no cyanosis, edema (1+ generalized edema) Neurologic: normal mental status, non-focal exam Psychiatric: mood appropriate, affect normal CBC and BMP: 06/14/19 05:45 06/14/19 05:45 ABG, PT/INR, D-dimer: ABG POC ABG pH 7.320 (7.35-7.45) L 06/13/19 17:23 ABG pH 7.460 pH Units (7.350-7.450) H 06/14/19 04:45 POC ABG pCO2 53.9 (35-45) H 06/13/19 17:23 ABG pCO2 39.1 mm Hg 06/14/19 04:45 POC ABG pO2 121 (80-105) H 06/13/19 17:23 ABG pO2 107.6 mm Hg (80.0-90.0) H 06/14/19 04:45 POC ABG HCO3 27.8 (22-26 mml/L) 06/13/19 17:23 POC ABG Total CO2 29 (23-27mmol/L) 06/13/19 17:23 POC ABG O2 Sat 98 06/13/19 17:23 ABG O2 Saturation 98.0 % (95.0-99.0) 06/14/19 04:45 PT/INR, D-dimer PT 17.9 Sec. (12.2-14.9) H 06/02/19 07:15 INR 1.50 (0.87-1.13) H 06/02/19 07:15 Abnormal lab findings: Abnormal Labs 06/02/19 06/02/19 06/02/19 07:15 07:15 07:15 WBC 21.0 H RBC 5.17 H Hgb Hct MCH 27 L RDW 23.8 H Lymph % (Auto) [place] % (Auto) Baso % (Auto) [place] # Baso # Seg Neutrophils % Seg Neuts % (Manual) 97.0 H Lymphocytes % (Manual) 1.0 L Nucleated RBC % 3.0 H Seg Neutrophils # Seg Neutrophils # Man 20.4 H Lymphocytes # (Manual) 0.2 L Basophils # (Manual) PT 17.9 H INR 1.50 H POC ABG pH ABG pH POC ABG pCO2 POC ABG pO2 ABG pO2 ABG HCO3 ABG Base Excess VBG pH Sodium 130 L Chloride 97.1 L Carbon Dioxide 16 L BUN 47 H Creatinine Glucose 139 H POC Glucose Lactic Acid Calcium Phosphorus Magnesium Total Bilirubin 6.40 H Direct Bilirubin 4.5 H AST 50 H ALT Alkaline Phosphatase 179 H Ammonia Lactate Dehydrogenase Total Creatine Kinase 53 L CK-MB (CK-2) 5.1 H CK-MB (CK-2) Rel Index 9.6 H Troponin T NT-Pro-B Natriuret Pep > 82923 H Total Protein 5.8 L Albumin 2.1 L Prealbumin LDL Cholesterol Direct HDL Cholesterol Vancomycin Trough Crossmatch 06/02/19 06/02/19 06/02/19 07:15 07:15 07:15 WBC RBC Hgb Hct MCH RDW Lymph % (Auto) [place] % (Auto) Baso % (Auto) [place] # Baso # Seg Neutrophils % Seg Neuts % (Manual) Lymphocytes % (Manual) Nucleated RBC % Seg Neutrophils # Seg Neutrophils # Man Lymphocytes # (Manual) Basophils # (Manual) PT INR POC ABG pH ABG pH POC ABG pCO2 POC ABG pO2 ABG pO2 ABG HCO3 ABG Base Excess VBG pH 7.310 L Sodium Chloride Carbon Dioxide BUN Creatinine Glucose POC Glucose Lactic Acid 2.40 H* Calcium Phosphorus Magnesium Total Bilirubin Direct Bilirubin AST ALT Alkaline Phosphatase Ammonia 16.0 L Lactate Dehydrogenase Total Creatine Kinase CK-MB (CK-2) CK-MB (CK-2) Rel Index Troponin T NT-Pro-B Natriuret Pep Total Protein Albumin Prealbumin LDL Cholesterol Direct HDL Cholesterol Vancomycin Trough Crossmatch 06/02/19 06/02/19 06/02/19 07:15 15:33 15:53 WBC RBC Hgb Hct MCH RDW Lymph % (Auto) [place] % (Auto) Baso % (Auto) [place] # Baso # Seg Neutrophils % Seg Neuts % (Manual) Lymphocytes % (Manual) Nucleated RBC % Seg Neutrophils # Seg Neutrophils # Man Lymphocytes # (Manual) Basophils # (Manual) PT INR POC ABG pH 7.229 L ABG pH POC ABG pCO2 49.5 H POC ABG pO2 ABG pO2 ABG HCO3 ABG Base Excess VBG pH Sodium Chloride Carbon Dioxide BUN Creatinine Glucose POC Glucose 66 L Lactic Acid Calcium Phosphorus Magnesium Total Bilirubin Direct Bilirubin AST ALT Alkaline Phosphatase Ammonia Lactate Dehydrogenase Total Creatine Kinase CK-MB (CK-2) CK-MB (CK-2) Rel Index Troponin T 0.065 H NT-Pro-B Natriuret Pep Total Protein Albumin Prealbumin LDL Cholesterol Direct 31 L HDL Cholesterol 8 L Vancomycin Trough Crossmatch 06/02/19 06/02/19 06/03/19 16:40 17:10 04:06 WBC RBC Hgb Hct MCH RDW Lymph % (Auto) [place] % (Auto) Baso % (Auto) [place] # Baso # Seg Neutrophils % Seg Neuts % (Manual) Lymphocytes % (Manual) Nucleated RBC % Seg Neutrophils # Seg Neutrophils # Man Lymphocytes # (Manual) Basophils # (Manual) PT INR POC ABG pH 7.259 L ABG pH POC ABG pCO2 33.9 L POC ABG pO2 221 H 146 H ABG pO2 ABG HCO3 ABG Base Excess VBG pH Sodium Chloride Carbon Dioxide BUN Creatinine Glucose POC Glucose 151 H Lactic Acid Calcium Phosphorus Magnesium Total Bilirubin Direct Bilirubin AST ALT Alkaline Phosphatase Ammonia Lactate Dehydrogenase Total Creatine Kinase CK-MB (CK-2) CK-MB (CK-2) Rel Index Troponin T NT-Pro-B Natriuret Pep Total Protein Albumin Prealbumin LDL Cholesterol Direct HDL Cholesterol Vancomycin Trough Crossmatch 06/03/19 06/03/19 06/03/19 04:41 04:41 17:23 WBC 17.5 H RBC Hgb Hct MCH 27 L RDW 25.0 H Lymph % (Auto) [place] % (Auto) Baso % (Auto) [place] # Baso # Seg Neutrophils % Seg Neuts % (Manual) 96.0 H Lymphocytes % (Manual) 0 L Nucleated RBC % 1.0 H Seg Neutrophils # Seg Neutrophils # Man 16.8 H Lymphocytes # (Manual) 0.0 L Basophils # (Manual) PT INR POC ABG pH ABG pH POC ABG pCO2 POC ABG pO2 ABG pO2 ABG HCO3 ABG Base Excess VBG pH Sodium Chloride Carbon Dioxide 17 L BUN 42 H Creatinine Glucose 59 L POC Glucose 113 H Lactic Acid Calcium Phosphorus Magnesium Total Bilirubin 7.00 H Direct Bilirubin AST ALT Alkaline Phosphatase 153 H Ammonia Lactate Dehydrogenase Total Creatine Kinase CK-MB (CK-2) CK-MB (CK-2) Rel Index Troponin T NT-Pro-B Natriuret Pep Total Protein 5.9 L Albumin 1.7 L Prealbumin LDL Cholesterol Direct HDL Cholesterol Vancomycin Trough Crossmatch 06/03/19 06/04/19 06/04/19 23:37 05:10 05:10 WBC 16.7 H RBC Hgb Hct MCH 27 L RDW 24.5 H Lymph % (Auto) [place] % (Auto) Baso % (Auto) [place] # Baso # Seg Neutrophils % Seg Neuts % (Manual) 94.0 H Lymphocytes % (Manual) 3.0 L Nucleated RBC % Seg Neutrophils # Seg Neutrophils # Man 15.7 H Lymphocytes # (Manual) 0.5 L Basophils # (Manual) PT INR POC ABG pH ABG pH POC ABG pCO2 POC ABG pO2 ABG pO2 ABG HCO3 ABG Base Excess VBG pH Sodium Chloride Carbon Dioxide BUN 39 H Creatinine Glucose 136 H POC Glucose 126 H Lactic Acid Calcium 8.3 L Phosphorus Magnesium 1.30 L Total Bilirubin 7.70 H Direct Bilirubin AST ALT Alkaline Phosphatase 140 H Ammonia Lactate Dehydrogenase Total Creatine Kinase CK-MB (CK-2) CK-MB (CK-2) Rel Index Troponin T NT-Pro-B Natriuret Pep Total Protein 5.6 L Albumin 1.7 L Prealbumin LDL Cholesterol Direct HDL Cholesterol Vancomycin Trough Crossmatch 06/04/19 06/04/19 06/04/19 05:44 13:50 18:05 WBC RBC Hgb Hct MCH RDW Lymph % (Auto) [place] % (Auto) Baso % (Auto) [place] # Baso # Seg Neutrophils % Seg Neuts % (Manual) Lymphocytes % (Manual) Nucleated RBC % Seg Neutrophils # Seg Neutrophils # Man Lymphocytes # (Manual) Basophils # (Manual) PT INR POC ABG pH ABG pH POC ABG pCO2 POC ABG pO2 ABG pO2 ABG HCO3 ABG Base Excess VBG pH Sodium Chloride Carbon Dioxide BUN Creatinine Glucose POC Glucose 124 H 137 H 120 H Lactic Acid Calcium Phosphorus Magnesium Total Bilirubin Direct Bilirubin AST ALT Alkaline Phosphatase Ammonia Lactate Dehydrogenase Total Creatine Kinase CK-MB (CK-2) CK-MB (CK-2) Rel Index Troponin T NT-Pro-B Natriuret Pep Total Protein Albumin Prealbumin LDL Cholesterol Direct HDL Cholesterol Vancomycin Trough Crossmatch 06/05/19 06/05/19 06/05/19 00:58 04:20 04:20 WBC 15.0 H RBC Hgb Hct MCH 27 L RDW 25.0 H Lymph % (Auto) [place] % (Auto) Baso % (Auto) [place] # Baso # Seg Neutrophils % Seg Neuts % (Manual) Lymphocytes % (Manual) Nucleated RBC % Seg Neutrophils # Seg Neutrophils # Man Lymphocytes # (Manual) Basophils # (Manual) PT INR POC ABG pH ABG pH POC ABG pCO2 POC ABG pO2 ABG pO2 ABG HCO3 ABG Base Excess VBG pH Sodium Chloride Carbon Dioxide BUN 52 H Creatinine Glucose 137 H POC Glucose 114 H Lactic Acid Calcium 7.8 L Phosphorus Magnesium Total Bilirubin Direct Bilirubin AST ALT Alkaline Phosphatase Ammonia Lactate Dehydrogenase Total Creatine Kinase CK-MB (CK-2) CK-MB (CK-2) Rel Index Troponin T NT-Pro-B Natriuret Pep Total Protein Albumin Prealbumin LDL Cholesterol Direct HDL Cholesterol Vancomycin Trough Crossmatch 06/05/19 06/05/19 06/05/19 05:39 05:45 09:45 WBC RBC Hgb Hct MCH RDW Lymph % (Auto) [place] % (Auto) Baso % (Auto) [place] # Baso # Seg Neutrophils % Seg Neuts % (Manual) Lymphocytes % (Manual) Nucleated RBC % Seg Neutrophils # Seg Neutrophils # Man Lymphocytes # (Manual) Basophils # (Manual) PT INR POC ABG pH ABG pH POC ABG pCO2 POC ABG pO2 108 H ABG pO2 ABG HCO3 ABG Base Excess VBG pH Sodium Chloride Carbon Dioxide BUN Creatinine Glucose POC Glucose 111 H Lactic Acid Calcium Phosphorus Magnesium Total Bilirubin Direct Bilirubin AST ALT Alkaline Phosphatase Ammonia Lactate Dehydrogenase Total Creatine Kinase CK-MB (CK-2) CK-MB (CK-2) Rel Index Troponin T NT-Pro-B Natriuret Pep Total Protein Albumin Prealbumin LDL Cholesterol Direct HDL Cholesterol Vancomycin Trough 20.1 H Crossmatch 06/05/19 06/05/19 06/06/19 13:25 18:27 00:01 WBC RBC Hgb Hct MCH RDW Lymph % (Auto) [place] % (Auto) Baso % (Auto) [place] # Baso # Seg Neutrophils % Seg Neuts % (Manual) Lymphocytes % (Manual) Nucleated RBC % Seg Neutrophils # Seg Neutrophils # Man Lymphocytes # (Manual) Basophils # (Manual) PT INR POC ABG pH ABG pH POC ABG pCO2 POC ABG pO2 ABG pO2 ABG HCO3 ABG Base Excess VBG pH Sodium Chloride Carbon Dioxide BUN Creatinine Glucose POC Glucose 152 H 194 H 153 H Lactic Acid Calcium Phosphorus Magnesium Total Bilirubin Direct Bilirubin AST ALT Alkaline Phosphatase Ammonia Lactate Dehydrogenase Total Creatine Kinase CK-MB (CK-2) CK-MB (CK-2) Rel Index Troponin T NT-Pro-B Natriuret Pep Total Protein Albumin Prealbumin LDL Cholesterol Direct HDL Cholesterol Vancomycin Trough Crossmatch 06/06/19 06/06/19 06/06/19 04:20 05:45 12:32 WBC RBC Hgb Hct MCH RDW Lymph % (Auto) [place] % (Auto) Baso % (Auto) [place] # Baso # Seg Neutrophils % Seg Neuts % (Manual) Lymphocytes % (Manual) Nucleated RBC % Seg Neutrophils # Seg Neutrophils # Man Lymphocytes # (Manual) Basophils # (Manual) PT INR POC ABG pH ABG pH POC ABG pCO2 POC ABG pO2 ABG pO2 ABG HCO3 ABG Base Excess VBG pH Sodium Chloride Carbon Dioxide BUN 62 H Creatinine Glucose 141 H POC Glucose 161 H 131 H Lactic Acid Calcium 7.7 L Phosphorus 2.40 L Magnesium Total Bilirubin Direct Bilirubin AST ALT Alkaline Phosphatase Ammonia Lactate Dehydrogenase Total Creatine Kinase CK-MB (CK-2) CK-MB (CK-2) Rel Index Troponin T NT-Pro-B Natriuret Pep Total Protein Albumin Prealbumin LDL Cholesterol Direct HDL Cholesterol Vancomycin Trough Crossmatch 06/07/19 06/07/19 06/07/19 02:07 05:36 05:36 WBC 25.3 H RBC Hgb 10.8 L Hct 33.7 L MCH 27 L RDW 26.7 H Lymph % (Auto) [place] % (Auto) Baso % (Auto) [place] # Baso # Seg Neutrophils % Seg Neuts % (Manual) Lymphocytes % (Manual) Nucleated RBC % Seg Neutrophils # Seg Neutrophils # Man Lymphocytes # (Manual) Basophils # (Manual) PT INR POC ABG pH ABG pH POC ABG pCO2 POC ABG pO2 ABG pO2 ABG HCO3 ABG Base Excess VBG pH Sodium 135 L Chloride 93.6 L Carbon Dioxide BUN 58 H Creatinine Glucose 131 H POC Glucose 165 H Lactic Acid Calcium 8.0 L Phosphorus Magnesium Total Bilirubin Direct Bilirubin AST ALT Alkaline Phosphatase Ammonia Lactate Dehydrogenase Total Creatine Kinase CK-MB (CK-2) CK-MB (CK-2) Rel Index Troponin T NT-Pro-B Natriuret Pep Total Protein Albumin Prealbumin LDL Cholesterol Direct HDL Cholesterol Vancomycin Trough Crossmatch 06/07/19 06/07/19 06/07/19 09:44 18:05 23:51 WBC RBC Hgb Hct MCH RDW Lymph % (Auto) [place] % (Auto) Baso % (Auto) [place] # Baso # Seg Neutrophils % Seg Neuts % (Manual) Lymphocytes % (Manual) Nucleated RBC % Seg Neutrophils # Seg Neutrophils # Man Lymphocytes # (Manual) Basophils # (Manual) PT INR POC ABG pH 7.508 H ABG pH POC ABG pCO2 POC ABG pO2 75 L ABG pO2 ABG HCO3 ABG Base Excess VBG pH Sodium Chloride Carbon Dioxide BUN Creatinine Glucose POC Glucose 137 H 180 H Lactic Acid Calcium Phosphorus Magnesium Total Bilirubin Direct Bilirubin AST ALT Alkaline Phosphatase Ammonia Lactate Dehydrogenase Total Creatine Kinase CK-MB (CK-2) CK-MB (CK-2) Rel Index Troponin T NT-Pro-B Natriuret Pep Total Protein Albumin Prealbumin LDL Cholesterol Direct HDL Cholesterol Vancomycin Trough Crossmatch 06/08/19 06/08/19 06/08/19 05:07 05:07 06:26 WBC 25.1 H RBC 3.21 L Hgb 8.8 L Hct 27.3 L D MCH RDW 27.7 H Lymph % (Auto) [place] % (Auto) Baso % (Auto) [place] # Baso # Seg Neutrophils % Seg Neuts % (Manual) Lymphocytes % (Manual) Nucleated RBC % Seg Neutrophils # Seg Neutrophils # Man Lymphocytes # (Manual) Basophils # (Manual) PT INR POC ABG pH ABG pH POC ABG pCO2 POC ABG pO2 ABG pO2 ABG HCO3 ABG Base Excess VBG pH Sodium 134 L Chloride 97.2 L Carbon Dioxide BUN 49 H Creatinine 0.7 L Glucose 144 H POC Glucose 149 H Lactic Acid Calcium 7.7 L Phosphorus Magnesium Total Bilirubin Direct Bilirubin AST ALT Alkaline Phosphatase Ammonia Lactate Dehydrogenase Total Creatine Kinase CK-MB (CK-2) CK-MB (CK-2) Rel Index Troponin T NT-Pro-B Natriuret Pep Total Protein Albumin Prealbumin LDL Cholesterol Direct HDL Cholesterol Vancomycin Trough Crossmatch 06/08/19 06/08/19 06/09/19 11:18 17:43 00:04 WBC RBC Hgb Hct MCH RDW Lymph % (Auto) [place] % (Auto) Baso % (Auto) [place] # Baso # Seg Neutrophils % Seg Neuts % (Manual) Lymphocytes % (Manual) Nucleated RBC % Seg Neutrophils # Seg Neutrophils # Man Lymphocytes # (Manual) Basophils # (Manual) PT INR POC ABG pH ABG pH POC ABG pCO2 POC ABG pO2 ABG pO2 ABG HCO3 ABG Base Excess VBG pH Sodium Chloride Carbon Dioxide BUN Creatinine Glucose POC Glucose 134 H 153 H 161 H Lactic Acid Calcium Phosphorus Magnesium Total Bilirubin Direct Bilirubin AST ALT Alkaline Phosphatase Ammonia Lactate Dehydrogenase Total Creatine Kinase CK-MB (CK-2) CK-MB (CK-2) Rel Index Troponin T NT-Pro-B Natriuret Pep Total Protein Albumin Prealbumin LDL Cholesterol Direct HDL Cholesterol Vancomycin Trough Crossmatch 06/09/19 06/09/19 06/09/19 05:51 08:58 11:53 WBC RBC Hgb Hct MCH RDW Lymph % (Auto) [place] % (Auto) Baso % (Auto) [place] # Baso # Seg Neutrophils % Seg Neuts % (Manual) Lymphocytes % (Manual) Nucleated RBC % Seg Neutrophils # Seg Neutrophils # Man Lymphocytes # (Manual) Basophils # (Manual) PT INR POC ABG pH ABG pH POC ABG pCO2 POC ABG pO2 ABG pO2 ABG HCO3 ABG Base Excess VBG pH Sodium Chloride 97.1 L Carbon Dioxide BUN 40 H Creatinine 0.6 L Glucose 161 H POC Glucose 183 H 189 H Lactic Acid Calcium 7.9 L Phosphorus Magnesium Total Bilirubin Direct Bilirubin AST ALT Alkaline Phosphatase Ammonia Lactate Dehydrogenase Total Creatine Kinase CK-MB (CK-2) CK-MB (CK-2) Rel Index Troponin T NT-Pro-B Natriuret Pep Total Protein Albumin Prealbumin LDL Cholesterol Direct HDL Cholesterol Vancomycin Trough Crossmatch 06/09/19 06/10/19 06/10/19 17:30 05:00 08:36 WBC RBC Hgb Hct MCH RDW Lymph % (Auto) [place] % (Auto) Baso % (Auto) [place] # Baso # Seg Neutrophils % Seg Neuts % (Manual) Lymphocytes % (Manual) Nucleated RBC % Seg Neutrophils # Seg Neutrophils # Man Lymphocytes # (Manual) Basophils # (Manual) PT INR POC ABG pH ABG pH POC ABG pCO2 POC ABG pO2 ABG pO2 ABG HCO3 ABG Base Excess VBG pH Sodium Chloride Carbon Dioxide BUN Creatinine Glucose POC Glucose 145 H 173 H 119 H Lactic Acid Calcium Phosphorus Magnesium Total Bilirubin Direct Bilirubin AST ALT Alkaline Phosphatase Ammonia Lactate Dehydrogenase Total Creatine Kinase CK-MB (CK-2) CK-MB (CK-2) Rel Index Troponin T NT-Pro-B Natriuret Pep Total Protein Albumin Prealbumin LDL Cholesterol Direct HDL Cholesterol Vancomycin Trough Crossmatch 06/10/19 06/10/19 06/10/19 09:25 09:25 09:25 WBC 18.9 H RBC 2.61 L Hgb 7.3 L Hct 22.8 L MCH RDW 29.2 H Lymph % (Auto) [place] % (Auto) Baso % (Auto) [place] # Baso # Seg Neutrophils % Seg Neuts % (Manual) Lymphocytes % (Manual) Nucleated RBC % Seg Neutrophils # Seg Neutrophils # Man Lymphocytes # (Manual) Basophils # (Manual) PT INR POC ABG pH ABG pH POC ABG pCO2 POC ABG pO2 ABG pO2 ABG HCO3 ABG Base Excess VBG pH Sodium Chloride 95.5 L Carbon Dioxide 31 H BUN 38 H Creatinine Glucose 115 H POC Glucose Lactic Acid Calcium 7.8 L Phosphorus Magnesium Total Bilirubin 4.80 H Direct Bilirubin 3.7 H AST 127 H ALT 93 H Alkaline Phosphatase 180 H Ammonia Lactate Dehydrogenase Total Creatine Kinase CK-MB (CK-2) CK-MB (CK-2) Rel Index Troponin T NT-Pro-B Natriuret Pep Total Protein 5.3 L Albumin 1.5 L Prealbumin LDL Cholesterol Direct HDL Cholesterol Vancomycin Trough Crossmatch 06/10/19 06/10/19 06/10/19 11:23 16:38 21:11 WBC RBC Hgb Hct MCH RDW Lymph % (Auto) [place] % (Auto) Baso % (Auto) [place] # Baso # Seg Neutrophils % Seg Neuts % (Manual) Lymphocytes % (Manual) Nucleated RBC % Seg Neutrophils # Seg Neutrophils # Man Lymphocytes # (Manual) Basophils # (Manual) PT INR POC ABG pH ABG pH POC ABG pCO2 POC ABG pO2 ABG pO2 ABG HCO3 ABG Base Excess VBG pH Sodium Chloride Carbon Dioxide BUN Creatinine Glucose POC Glucose 175 H 164 H 159 H Lactic Acid Calcium Phosphorus Magnesium Total Bilirubin Direct Bilirubin AST ALT Alkaline Phosphatase Ammonia Lactate Dehydrogenase Total Creatine Kinase CK-MB (CK-2) CK-MB (CK-2) Rel Index Troponin T NT-Pro-B Natriuret Pep Total Protein Albumin Prealbumin LDL Cholesterol Direct HDL Cholesterol Vancomycin Trough Crossmatch 06/10/19 06/11/19 06/11/19 23:23 00:22 05:58 WBC RBC Hgb Hct MCH RDW Lymph % (Auto) [place] % (Auto) Baso % (Auto) [place] # Baso # Seg Neutrophils % Seg Neuts % (Manual) Lymphocytes % (Manual) Nucleated RBC % Seg Neutrophils # Seg Neutrophils # Man Lymphocytes # (Manual) Basophils # (Manual) PT INR POC ABG pH ABG pH POC ABG pCO2 POC ABG pO2 ABG pO2 ABG HCO3 ABG Base Excess VBG pH Sodium 135 L Chloride 95.7 L Carbon Dioxide 33 H BUN 36 H Creatinine 0.7 L Glucose 155 H POC Glucose 188 H Lactic Acid Calcium 7.7 L Phosphorus Magnesium Total Bilirubin 4.10 H Direct Bilirubin AST 89 H ALT 77 H Alkaline Phosphatase 154 H Ammonia Lactate Dehydrogenase Total Creatine Kinase CK-MB (CK-2) CK-MB (CK-2) Rel Index Troponin T NT-Pro-B Natriuret Pep Total Protein 5.3 L Albumin 1.7 L Prealbumin 0.106 L LDL Cholesterol Direct HDL Cholesterol Vancomycin Trough Crossmatch 06/11/19 06/11/19 06/11/19 06:53 11:17 16:21 WBC RBC Hgb Hct MCH RDW Lymph % (Auto) [place] % (Auto) Baso % (Auto) [place] # Baso # Seg Neutrophils % Seg Neuts % (Manual) Lymphocytes % (Manual) Nucleated RBC % Seg Neutrophils # Seg Neutrophils # Man Lymphocytes # (Manual) Basophils # (Manual) PT INR POC ABG pH ABG pH POC ABG pCO2 POC ABG pO2 ABG pO2 ABG HCO3 ABG Base Excess VBG pH Sodium Chloride Carbon Dioxide BUN Creatinine Glucose POC Glucose 198 H 157 H 190 H Lactic Acid Calcium Phosphorus Magnesium Total Bilirubin Direct Bilirubin AST ALT Alkaline Phosphatase Ammonia Lactate Dehydrogenase Total Creatine Kinase CK-MB (CK-2) CK-MB (CK-2) Rel Index Troponin T NT-Pro-B Natriuret Pep Total Protein Albumin Prealbumin LDL Cholesterol Direct HDL Cholesterol Vancomycin Trough Crossmatch 06/12/19 06/12/19 06/12/19 00:17 05:27 06:27 WBC RBC Hgb Hct MCH RDW Lymph % (Auto) [place] % (Auto) Baso % (Auto) [place] # Baso # Seg Neutrophils % Seg Neuts % (Manual) Lymphocytes % (Manual) Nucleated RBC % Seg Neutrophils # Seg Neutrophils # Man Lymphocytes # (Manual) Basophils # (Manual) PT INR POC ABG pH ABG pH POC ABG pCO2 POC ABG pO2 ABG pO2 ABG HCO3 ABG Base Excess VBG pH Sodium 136 L Chloride 95.6 L Carbon Dioxide BUN 39 H Creatinine Glucose 144 H POC Glucose 139 H 169 H Lactic Acid Calcium 8.3 L Phosphorus Magnesium Total Bilirubin Direct Bilirubin AST ALT Alkaline Phosphatase Ammonia Lactate Dehydrogenase Total Creatine Kinase CK-MB (CK-2) CK-MB (CK-2) Rel Index Troponin T NT-Pro-B Natriuret Pep Total Protein Albumin Prealbumin LDL Cholesterol Direct HDL Cholesterol Vancomycin Trough Crossmatch 06/12/19 06/13/19 06/13/19 11:52 00:27 06:00 WBC RBC Hgb Hct MCH RDW Lymph % (Auto) [place] % (Auto) Baso % (Auto) [place] # Baso # Seg Neutrophils % Seg Neuts % (Manual) Lymphocytes % (Manual) Nucleated RBC % Seg Neutrophils # Seg Neutrophils # Man Lymphocytes # (Manual) Basophils # (Manual) PT INR POC ABG pH ABG pH POC ABG pCO2 POC ABG pO2 ABG pO2 ABG HCO3 ABG Base Excess VBG pH Sodium Chloride Carbon Dioxide BUN Creatinine Glucose POC Glucose 146 H 151 H 133 H Lactic Acid Calcium Phosphorus Magnesium Total Bilirubin Direct Bilirubin AST ALT Alkaline Phosphatase Ammonia Lactate Dehydrogenase Total Creatine Kinase CK-MB (CK-2) CK-MB (CK-2) Rel Index Troponin T NT-Pro-B Natriuret Pep Total Protein Albumin Prealbumin LDL Cholesterol Direct HDL Cholesterol Vancomycin Trough Crossmatch 06/13/19 06/13/19 06/13/19 06:11 06:11 06:11 WBC 17.0 H RBC 2.32 L Hgb 6.8 L Hct 20.9 L MCH RDW 29.2 H Lymph % (Auto) [place] % (Auto) Baso % (Auto) [place] # Baso # Seg Neutrophils % Seg Neuts % (Manual) 92.0 H Lymphocytes % (Manual) 2.0 L Nucleated RBC % Seg Neutrophils # Seg Neutrophils # Man 15.6 H Lymphocytes # (Manual) 0.3 L Basophils # (Manual) 0.2 H PT INR POC ABG pH ABG pH POC ABG pCO2 POC ABG pO2 ABG pO2 ABG HCO3 ABG Base Excess VBG pH Sodium 134 L Chloride 96.1 L Carbon Dioxide BUN 42 H Creatinine Glucose 126 H POC Glucose Lactic Acid Calcium 8.0 L Phosphorus Magnesium Total Bilirubin Direct Bilirubin AST ALT Alkaline Phosphatase Ammonia Lactate Dehydrogenase 214 H Total Creatine Kinase CK-MB (CK-2) CK-MB (CK-2) Rel Index Troponin T NT-Pro-B Natriuret Pep Total Protein Albumin Prealbumin LDL Cholesterol Direct HDL Cholesterol Vancomycin Trough Crossmatch 06/13/19 06/13/19 06/13/19 11:17 11:25 16:57 WBC RBC Hgb Hct MCH RDW Lymph % (Auto) [place] % (Auto) Baso % (Auto) [place] # Baso # Seg Neutrophils % Seg Neuts % (Manual) Lymphocytes % (Manual) Nucleated RBC % Seg Neutrophils # Seg Neutrophils # Man Lymphocytes # (Manual) Basophils # (Manual) PT INR POC ABG pH ABG pH POC ABG pCO2 POC ABG pO2 ABG pO2 ABG HCO3 ABG Base Excess VBG pH Sodium Chloride Carbon Dioxide BUN Creatinine Glucose POC Glucose 185 H 224 H Lactic Acid Calcium Phosphorus Magnesium Total Bilirubin Direct Bilirubin AST ALT Alkaline Phosphatase Ammonia Lactate Dehydrogenase Total Creatine Kinase CK-MB (CK-2) CK-MB (CK-2) Rel Index Troponin T NT-Pro-B Natriuret Pep Total Protein Albumin Prealbumin LDL Cholesterol Direct HDL Cholesterol Vancomycin Trough Crossmatch See Detail 06/13/19 06/13/19 06/14/19 17:05 17:23 04:45 WBC RBC Hgb 9.2 L Hct 28.9 L D MCH RDW Lymph % (Auto) [place] % (Auto) Baso % (Auto) [place] # Baso # Seg Neutrophils % Seg Neuts % (Manual) Lymphocytes % (Manual) Nucleated RBC % Seg Neutrophils # Seg Neutrophils # Man Lymphocytes # (Manual) Basophils # (Manual) PT INR POC ABG pH 7.320 L ABG pH 7.460 H POC ABG pCO2 53.9 H POC ABG pO2 121 H ABG pO2 107.6 H ABG HCO3 27.2 H ABG Base Excess 3.3 H VBG pH Sodium Chloride Carbon Dioxide BUN Creatinine Glucose POC Glucose Lactic Acid Calcium Phosphorus Magnesium Total Bilirubin Direct Bilirubin AST ALT Alkaline Phosphatase Ammonia Lactate Dehydrogenase Total Creatine Kinase CK-MB (CK-2) CK-MB (CK-2) Rel Index Troponin T NT-Pro-B Natriuret Pep Total Protein Albumin Prealbumin LDL Cholesterol Direct HDL Cholesterol Vancomycin Trough Crossmatch 06/14/19 06/14/19 05:45 05:45 WBC 16.7 H RBC 3.45 L Hgb 10.2 L Hct 31.1 L MCH RDW 24.2 H Lymph % (Auto) 7.4 L [place] % (Auto) 8.5 H Baso % (Auto) 2.3 H [place] # 1.4 H Baso # 0.4 H Seg Neutrophils % 80.4 H Seg Neuts % (Manual) Lymphocytes % (Manual) Nucleated RBC % Seg Neutrophils # 13.4 H Seg Neutrophils # Man Lymphocytes # (Manual) Basophils # (Manual) PT INR POC ABG pH ABG pH POC ABG pCO2 POC ABG pO2 ABG pO2 ABG HCO3 ABG Base Excess VBG pH Sodium Chloride Carbon Dioxide BUN 43 H Creatinine Glucose POC Glucose Lactic Acid Calcium 7.7 L Phosphorus Magnesium Total Bilirubin Direct Bilirubin AST ALT Alkaline Phosphatase Ammonia Lactate Dehydrogenase Total Creatine Kinase CK-MB (CK-2) CK-MB (CK-2) Rel Index Troponin T NT-Pro-B Natriuret Pep Total Protein Albumin Prealbumin LDL Cholesterol Direct HDL Cholesterol Vancomycin Trough Crossmatch
--- NOTE | 2019-06-14 13:46 | Progress Note ---
Assessment and Plan Cultures: Blood culture 06/02/19 no growth to date Urine culture 06/02/19 no growth to date Surgical culture 06/02/19 Suni albicans Wound culture right foot 06/02/2019 - PsA, Morganella Surgical foot culture Left 06/05/2019 - P mirabilis Surgical foot culture right 06/05/2019 - P mirabilis 06/13/2019 sputum culture: in process Assessment: 63 yo M with severe non ischemic cardiomyopathy and heart failure, chronic bilateral wounds admitted with small perforated gastric ulcer. 1. Acute sepsis: POA. Likely secondary to perforated gastric ulcer and infected chronic wounds on LE. 2. Infected bilateral infected wounds - chronic with worsening. He has significant CHF and likely perfusion compromise. Concern for the viability of these limbs. Surgery has also evaluated. patient has refused amputation. His LE wounds are not curable. This was explained to him at length by Dr. Dos Santos. s/p debridement again by Dr. Oakes on 06/12/2019. 3. Perforated gastric ulcer: s/p surgery: exploratory laparotomy, omental patch of perforated gastric ulcer. 4. Elevated bilirubin: GI following. Cholestasis, thought to be related to congestive heart failure and TPN. 5. Acute hypoxic respiratory failure: CXR not consistent with any pneumonia. Afebrile. Likely pulmonary edema, patient has very low EF. Recs: - continue IV Cefepime ending 06/17/2019 - Flagyl discontinued - continue wound care to feet Diamond Cohen MD, FACP [facility] ([facility] C: [phone] O: [phone] F: [phone] Subjective Date of service: 06/14/19 Principal diagnosis: elevated LFTs Interval history: Afebrile. Went to OR yesterday for dehiscence of his abdominal wound. Initially extubated in the PACU but then had to be reintubated due to hypoxia. Currently sedated, calm, on the vent. Objective - Exam Narrative Exam: Physical Exam: Constitutional: sedated, intubated Head, Ears, Nose: Normocephalic, atraumatic. External ears, nose normal Eyes: Conjunctivae/corneas clear. No ptosis. Neck: intubated Oral: intubated Cardiovascular: S1, S2 normal. Respiratory: Good air entry, clear to auscultation bilaterally GI: abdominal binder +, bowel sounds absent. Musculoskeletal: b/l LE with extensive wounds and drainage Skin: No rash or abscess Hem/Lymphatic: No palpable cervical or supraclavicular nodes. No lymphangitis Psych: no agitation Neurological: sedated, intubated - Constitutional Vitals: Vital Signs Temp Pulse Resp BP Pulse Ox 99.7 F H 105 H 18 133/89 96 06/14/19 08:00 06/14/19 12:44 06/14/19 12:31 06/14/19 12:44 06/14/19 12:44 Temperature -Last 24 Hours Temperature 99.7 F Temperature 98.1 F Temperature 100.7 F Temperature 98.3 F Temperature 98.2 F Temperature 97.6 F Temperature 97.4 F Temperature 98 F Temperature 97.4 F - Labs CBC & Chem 7: 06/14/19 05:45 06/14/19 05:45 Labs: Abnormal lab results 06/13/19 06/13/19 06/13/19 Range/Units 11:17 16:57 17:05 WBC (4.5-11.0) K/mm3 RBC (3.65-5.03) M/mm3 Hgb 9.2 L (11.8-15.2) gm/dl Hct 28.9 L D (35.5-45.6) % RDW (13.2-15.2) % Lymph % (Auto) (13.4-35.0) % [place] % (Auto) (0.0-7.3) % Baso % (Auto) (0.0-1.8) % [place] # (0.0-0.8) K/mm3 Baso # (0.0-0.1) K/mm3 Seg Neutrophils % (40.0-70.0) % Seg Neutrophils # (1.8-7.7) K/mm3 POC ABG pH (7.35-7.45) ABG pH (7.350-7.450) pH Units POC ABG pCO2 (35-45) POC ABG pO2 (80-105) ABG pO2 (80.0-90.0) mm Hg ABG HCO3 (20.0-26.0) mmol/L ABG Base Excess (-2.0-3.0) mmol/L BUN (9-20) mg/dL POC Glucose 224 H (70-105) Calcium (8.4-10.2) mg/dL Crossmatch See Detail 06/13/19 06/14/19 06/14/19 Range/Units 17:23 04:45 05:45 WBC (4.5-11.0) K/mm3 RBC (3.65-5.03) M/mm3 Hgb (11.8-15.2) gm/dl Hct (35.5-45.6) % RDW (13.2-15.2) % Lymph % (Auto) (13.4-35.0) % [place] % (Auto) (0.0-7.3) % Baso % (Auto) (0.0-1.8) % [place] # (0.0-0.8) K/mm3 Baso # (0.0-0.1) K/mm3 Seg Neutrophils % (40.0-70.0) % Seg Neutrophils # (1.8-7.7) K/mm3 POC ABG pH 7.320 L (7.35-7.45) ABG pH 7.460 H (7.350-7.450) pH Units POC ABG pCO2 53.9 H (35-45) POC ABG pO2 121 H (80-105) ABG pO2 107.6 H (80.0-90.0) mm Hg ABG HCO3 27.2 H (20.0-26.0) mmol/L ABG Base Excess 3.3 H (-2.0-3.0) mmol/L BUN 43 H (9-20) mg/dL POC Glucose (70-105) Calcium 7.7 L (8.4-10.2) mg/dL Crossmatch 06/14/19 Range/Units 05:45 WBC 16.7 H (4.5-11.0) K/mm3 RBC 3.45 L (3.65-5.03) M/mm3 Hgb 10.2 L (11.8-15.2) gm/dl Hct 31.1 L (35.5-45.6) % RDW 24.2 H (13.2-15.2) % Lymph % (Auto) 7.4 L (13.4-35.0) % [place] % (Auto) 8.5 H (0.0-7.3) % Baso % (Auto) 2.3 H (0.0-1.8) % [place] # 1.4 H (0.0-0.8) K/mm3 Baso # 0.4 H (0.0-0.1) K/mm3 Seg Neutrophils % 80.4 H (40.0-70.0) % Seg Neutrophils # 13.4 H (1.8-7.7) K/mm3 POC ABG pH (7.35-7.45) ABG pH (7.350-7.450) pH Units POC ABG pCO2 (35-45) POC ABG pO2 (80-105) ABG pO2 (80.0-90.0) mm Hg ABG HCO3 (20.0-26.0) mmol/L ABG Base Excess (-2.0-3.0) mmol/L BUN (9-20) mg/dL POC Glucose (70-105) Calcium (8.4-10.2) mg/dL Crossmatch
--- NOTE | 2019-06-14 15:20 | Progress Note ---
Assessment and Plan S/p exploratory laparotomy and closure of abdominal fascial dehiscence yesterday and is now strict NPO again. D/c PO cardiac medications and initiate IV lopressor. Overall guarded prognosis. The patient has been seen in conjunction with Dr. Melia Baird who agrees with the assessment and plan of care. - Patient Problems (1) Pneumoperitoneum Current Visit: Yes Status: Acute (2) Sepsis Current Visit: Yes Status: Acute Qualifiers: Sepsis type: sepsis due to unspecified organism Sepsis acute organ dysfunction status: unspecified Qualified Code(s): A41.9 - Sepsis, unspecified organism (3) Chronic HFrEF (heart failure with reduced ejection fraction) Current Visit: Yes Status: Chronic (4) Nonischemic cardiomyopathy Current Visit: Yes Status: Chronic convert IV lopressor (5) Sinus node dysfunction Current Visit: Yes Status: Chronic (6) NSVT (nonsustained ventricular tachycardia) Current Visit: Yes Status: Chronic (7) HTN (hypertension) Current Visit: Yes Status: Chronic Qualifiers: Hypertension type: essential hypertension Qualified Code(s): I10 - Essential (primary) hypertension (8) Pulmonary hypertension Current Visit: Yes Status: Chronic (9) PAD (peripheral artery disease) Current Visit: Yes Status: Chronic (10) Anemia Current Visit: Yes Status: Acute (10) Acute respiratory failure Current Visit: Yes Status: Acute Subjective Date of service: 06/14/19 Principal diagnosis: elevated LFTs Interval history: pt intubated, sedated, s/p surgery yesterday. strict NPO. Objective Last Vital Signs Temp 99.7 F H 06/14/19 08:00 Pulse 114 H 06/14/19 14:45 Resp 19 06/14/19 14:45 BP 116/82 06/14/19 14:45 Pulse Ox 98 06/14/19 14:45 - Physical Examination General: Other (intubated) HEENT: Positive: EOMI, Normocephaly, Mucus Membranes Moist Neck: Positive: neck supple, trachea midline, Carotid Upstroke (full) Cardiac: Positive: Reg Rate and Rhythm, S1/S2 Lungs: Positive: Decreased Breath Sounds Neuro: Positive: Other (intubated, sedated) /Rectal: Other (Urine dark yellow) Skin: Positive: Other (abdominal surgical wounds, multiple wounds on both lower extremities with areas of ischemic ulceration.) Musculoskeletal: Normal Range of Motion Extremities: Present: lower extr. pulses (LLE difficult to palpate d/t wound dressing and ischemic ulceration), Other (LLE - pulse difficult to palpate d/t wounds ) - Labs and Meds CBC 06/13/19 06/14/19 Range/Units 17:05 05:45 WBC 16.7 H (4.5-11.0) K/mm3 RBC 3.45 L (3.65-5.03) M/mm3 Hgb 9.2 L 10.2 L (11.8-15.2) gm/dl Hct 28.9 L D 31.1 L (35.5-45.6) % Plt Count 355 (140-440) K/mm3 Lymph # 1.2 (1.2-5.4) K/mm3 [place] # 1.4 H (0.0-0.8) K/mm3 Eos # 0.2 (0.0-0.4) K/mm3 Baso # 0.4 H (0.0-0.1) K/mm3 Comprehensive Metabolic Panel 06/14/19 Range/Units 05:45 Sodium 140 (137-145) mmol/L Potassium 3.7 (3.6-5.0) mmol/L Chloride 100.5 (98-107) mmol/L Carbon Dioxide 27 (22-30) mmol/L BUN 43 H (9-20) mg/dL Creatinine 1.0 (0.8-1.5) mg/dL Glucose 90 (75-100) mg/dL Calcium 7.7 L (8.4-10.2) mg/dL - Imaging and Cardiology EKG: image reviewed Echo: report reviewed (02/28/19 showed EF of 10-15%, dilation of all chambers, moderate AR, moderate to severe TR and RV hypokinesis. ) Cardiac cath: report reviewed (04/2017 showed patent coronaries, EF 10-15%. ) - Telemetry EKG Rhythm: Sinus Rhythm - EKG Sinus rhythms and dysrhythmias: sinus rhythm Chamber hypertrophy or enlargement: left ventricular hypertro Repolarization changes or abnormalities: repolarization abn secondary to ventricular hypertrophy Myocardial infarction: septal NC (old age or ind
[2019-06-14] MEDS ORDERED: FAT EMULSIONS 20% 250 ML IV SCH (20:00)
[2019-06-14] MEDS ORDERED: TOTAL PARENTERAL NUTRITION 1,560 ML IV SCH (20:00)
[2019-06-14] MEDS: METOPROLOL TARTRATE 5 MG/5 ML INJ IV SCH (20:21)
[2019-06-14] MEDS: HYDROmorphone 1 MG/1 ML INJ IV PRN (20:22)
[2019-06-15] MEDS: INSULIN LISPRO 100 UNIT/ML SUB-Q SCH ×4 (00:15→18:30)
[2019-06-15] MEDS: HYDROmorphone 1 MG/1 ML INJ IV PRN ×4 (02:47→17:35)
[2019-06-15] MEDS: IPRATROPIUM/ALBUTEROL SULFATE 3 ML AMPUL.NEB IH SCH ×4 (02:54→23:51)
[2019-06-15] MEDS: FUROSEMIDE 40 MG TAB PO SCH (06:00)
[2019-06-15] MEDS: HEPARIN 5,000 UNIT/1 ML VIAL SUB-Q SCH ×3 (06:07→21:20)
[2019-06-15] MEDS: CEFEPIME/NS 2 GM/100 ML 2 GM/100 ML BAG IV SCH ×2 (07:00→17:34)
[2019-06-15 07:19] LABS: BUN/Creatinine Ratio 37; Blood Urea Nitrogen 37 mg/dL (9-20); Hemolysis Index 3
--- NOTE | 2019-06-15 07:44 | Progress Note ---
Assessment and Plan Assessment and plan: Patient is a 63 yo man with a history of NICMP, chronic HFrEF 10-15%, NSVT declines LifeVest/AICD, CKD 3, HTN and mod to severe TR, b/l LE wounds, bedbound who presents to [facility] ED with c/o abdominal pain for 3 days. He had multiple bilateral lower extremity wound and stage I to 2 lower extremity ulcer covered with pus. CT abdomen and pelvis suggestive of pneumoperitoneum. General surgery was consulted and patient was taken for OR for exploratory laparotomy by general surgeon. He also received empiric antibiotics. He was intubated per-operatively,extubated 06/05, transferred to Surgical floor. Patient had wound dehiscence of the midline abdominal wall With eviscerated omentum in the middle of the incision Surgery has taken the patient to the OR s/p wound closure, acute respiratory failure requiring intubation, transferred to ICU Extubated yesterday, patient feels well , tolerated clear liquids, surgery advance to full liquids today --Hypokalemia; replenish with IV KCl, monitor electrolytes --Acute hypoxic respiratory failure; requiring intubation and mechanical ventilation s/p extubation yesterday, patient is saturating well on nasal cannula oxygen --Perforated gastric ulcer. s/p exploratory laparotomy, omental patch of perforated gastric ulcer by Dr. Sims, cont empiric abx, on TPN, clear liquids advance to full liquids today Patient tolerating --Sepsis with bilateral lower extremity cellulitis/infected ulcer /perforated gastric ulcer Continue current antibiotics per ID, supportive care --bilateral lower extremity cellulitis/infected ulcer - from PVD s/p bilateral I and D done 06/05 s/p surgical debridement on 06/13/2019 Continue wound care --Moderate b/l pleural effusion Anti-failure medications --Chronic systolic CHF; Continue current cardiac medications cardiology following --Severe protein calorie malnutrition nutrition consult, may need TPN --CKD stage III, resolved Creatinine within normal limits --Jaundice Elevated bilirubin, Total Bili of 7.7 -4.1 GI evaluated and signed off --Severe metabolic acidosis likely due to perforated bowel bicarbonate as needed --Acute respiratory failure following surgery CC following, cont nebs, Extubated 06/05 --DVT Prophylaxis: Heparin Consults and recommendations noted and appreciated Monitor closely and adjust management as needed Plan of care is reviewed for the patient and his nurse And is stable to be transferred out of ICU to surgical floor today Critical care time 32 minutes History Interval history: Patient seen and examined in ICU medical records reviewed Patient was extubated yesterday, feels better Surgery started clear liquids Mild abdominal pain Vital signs noted Hospitalist Physical - Constitutional Vitals: Temp Pulse Resp BP Pulse Ox 98.9 F 118 H 20 120/74 99 06/14/19 19:59 06/15/19 06:31 06/15/19 06:31 06/15/19 06:31 06/15/19 06:31 General appearance: Present: no acute distress, well-nourished - EENT Eyes: Present: PERRL, EOM intact - Neck Neck: Present: supple, normal ROM - Respiratory Respiratory effort: normal Respiratory: bilateral: diminished, negative: rales, rhonchi, wheezing - Cardiovascular Rhythm: regular Heart Sounds: Present: S1 & S2 - Extremities Extremities: no ischemia, No edema - Abdominal General gastrointestinal: soft, tender (No guarding needed no rigidity), non- distended, normal bowel sounds - Integumentary Integumentary: Present: clear, warm - Psychiatric Psychiatric: appropriate mood/affect, cooperative - Neurologic Neurologic: moves all extremities Results - Labs CBC & Chem 7: 06/14/19 05:45 06/15/19 05:10 Labs: Laboratory Last Values WBC 16.7 K/mm3 (4.5-11.0) H 06/14/19 05:45 RBC 3.45 M/mm3 (3.65-5.03) L 06/14/19 05:45 Hgb 10.2 gm/dl (11.8-15.2) L 06/14/19 05:45 Hct 31.1 % (35.5-45.6) L 06/14/19 05:45 MCV 90 fl (84-94) 06/14/19 05:45 MCH 30 pg (28-32) 06/14/19 05:45 MCHC 33 % (32-34) 06/14/19 05:45 RDW 24.2 % (13.2-15.2) H 06/14/19 05:45 Plt Count 355 K/mm3 (140-440) 06/14/19 05:45 Lymph % (Auto) 7.4 % (13.4-35.0) L 06/14/19 05:45 [place] % (Auto) 8.5 % (0.0-7.3) H 06/14/19 05:45 Eos % (Auto) 1.4 % (0.0-4.3) 06/14/19 05:45 Baso % (Auto) 2.3 % (0.0-1.8) H 06/14/19 05:45 Lymph # 1.2 K/mm3 (1.2-5.4) 06/14/19 05:45 [place] # 1.4 K/mm3 (0.0-0.8) H 06/14/19 05:45 Eos # 0.2 K/mm3 (0.0-0.4) 06/14/19 05:45 Baso # 0.4 K/mm3 (0.0-0.1) H 06/14/19 05:45 Add Manual Diff Complete 06/13/19 06:11 Total Counted 100 06/13/19 06:11 Seg Neutrophils % 80.4 % (40.0-70.0) H 06/14/19 05:45 Seg Neuts % (Manual) 92.0 % (40.0-70.0) H 06/13/19 06:11 Band Neutrophils % 0 % 06/13/19 06:11 Lymphocytes % (Manual) 2.0 % (13.4-35.0) L 06/13/19 06:11 Reactive Lymphs % (Man) 0 % 06/13/19 06:11 Monocytes % (Manual) 4.0 % (0.0-7.3) 06/13/19 06:11 Eosinophils % (Manual) 1.0 % (0.0-4.3) 06/13/19 06:11 Basophils % (Manual) 1.0 % (0.0-1.8) 06/13/19 06:11 Metamyelocytes % 0 % 06/13/19 06:11 Myelocytes % 0 % 06/13/19 06:11 Promyelocytes % 0 % 06/13/19 06:11 Blast Cells % 0 % 06/13/19 06:11 Nucleated RBC % Not Reportable 06/13/19 06:11 Seg Neutrophils # 13.4 K/mm3 (1.8-7.7) H 06/14/19 05:45 Seg Neutrophils # Man 15.6 K/mm3 (1.8-7.7) H 06/13/19 06:11 Band Neutrophils # 0.0 K/mm3 06/13/19 06:11 Lymphocytes # (Manual) 0.3 K/mm3 (1.2-5.4) L 06/13/19 06:11 Abs React Lymphs (Man) 0.0 K/mm3 06/13/19 06:11 Monocytes # (Manual) 0.7 K/mm3 (0.0-0.8) 06/13/19 06:11 Eosinophils # (Manual) 0.2 K/mm3 (0.0-0.4) 06/13/19 06:11 Basophils # (Manual) 0.2 K/mm3 (0.0-0.1) H 06/13/19 06:11 Metamyelocytes # 0.0 K/mm3 06/13/19 06:11 Myelocytes # 0.0 K/mm3 06/13/19 06:11 Promyelocytes # 0.0 K/mm3 06/13/19 06:11 Blast Cells # 0.0 K/mm3 06/13/19 06:11 WBC Morphology Not Reportable 06/13/19 06:11 Hypersegmented Neuts Not Reportable 06/13/19 06:11 Hyposegmented Neuts Not Reportable 06/13/19 06:11 Hypogranular Neuts Not Reportable 06/13/19 06:11 Smudge Cells Not Reportable 06/13/19 06:11 Toxic Granulation Not Reportable 06/13/19 06:11 Toxic Vacuolation Not Reportable 06/13/19 06:11 Dohle Bodies Not Reportable 06/13/19 06:11 Pelger-Huet Anomaly Not Reportable 06/13/19 06:11 Romero Rods Not Reportable 06/13/19 06:11 Platelet Estimate Consistent w auto 06/13/19 06:11 Clumped Platelets Not Reportable 06/13/19 06:11 Plt Clumps, EDTA Not Reportable 06/13/19 06:11 Large Platelets Not Reportable 06/13/19 06:11 Giant Platelets Not Reportable 06/13/19 06:11 Platelet Satelliting Not Reportable 06/13/19 06:11 Plt Morphology Comment Not Reportable 06/13/19 06:11 RBC Morphology Not Reportable 06/13/19 06:11 Dimorphic RBCs Not Reportable 06/13/19 06:11 Polychromasia Not Reportable 06/13/19 06:11 Hypochromasia 2+ 06/13/19 06:11 Poikilocytosis Not Reportable 06/13/19 06:11 Anisocytosis 1+ 06/13/19 06:11 Microcytosis Not Reportable 06/13/19 06:11 Macrocytosis Not Reportable 06/13/19 06:11 Spherocytes Not Reportable 06/13/19 06:11 Pappenheimer Bodies Not Reportable 06/13/19 06:11 Sickle Cells Not Reportable 06/13/19 06:11 Target Cells 1+ 06/13/19 06:11 Tear Drop Cells Not Reportable 06/13/19 06:11 Ovalocytes Not Reportable 06/13/19 06:11 Helmet Cells Not Reportable 06/13/19 06:11 [place] Bodies Not Reportable 06/13/19 06:11 [place] Rings Not Reportable 06/13/19 06:11 [place] Cells Not Reportable 06/13/19 06:11 Bite Cells Not Reportable 06/13/19 06:11 Crenated Cell Not Reportable 06/13/19 06:11 Elliptocytes Not Reportable 06/13/19 06:11 Acanthocytes (Spur) Not Reportable 06/13/19 06:11 Rouleaux Not Reportable 06/13/19 06:11 Hemoglobin C Crystals Not Reportable 06/13/19 06:11 Schistocytes Not Reportable 06/13/19 06:11 Malaria parasites Not Reportable 06/13/19 06:11 Bunny Bodies Not Reportable 06/13/19 06:11 Hem Pathologist Commnt No 06/13/19 06:11 PT 17.9 Sec. (12.2-14.9) H 06/02/19 07:15 INR 1.50 (0.87-1.13) H 06/02/19 07:15 APTT 33.2 Sec. (24.2-36.6) 06/02/19 07:15 POC ABG pH 7.320 (7.35-7.45) L 06/13/19 17:23 ABG pH 7.460 pH Units (7.350-7.450) H 06/14/19 04:45 POC ABG pCO2 53.9 (35-45) H 06/13/19 17:23 ABG pCO2 39.1 mm Hg 06/14/19 04:45 POC ABG pO2 121 (80-105) H 06/13/19 17:23 ABG pO2 107.6 mm Hg (80.0-90.0) H 06/14/19 04:45 POC ABG HCO3 27.8 (22-26 mml/L) 06/13/19 17:23 ABG HCO3 27.2 mmol/L (20.0-26.0) H 06/14/19 04:45 POC ABG Total CO2 29 (23-27mmol/L) 06/13/19 17:23 POC ABG O2 Sat 98 06/13/19 17:23 ABG O2 Saturation 98.0 % (95.0-99.0) 06/14/19 04:45 ABG O2 Content 21.2 (0.0-44) 06/14/19 04:45 POC ABG Base Excess 2 ((-2) - (+3)mmol/L) 06/13/19 17:23 ABG Base Excess 3.3 mmol/L (-2.0-3.0) H 06/14/19 04:45 ABG Hemoglobin 15.7 gm/dl (14.0-18.0) 06/14/19 04:45 ABG Carboxyhemoglobin 2.0 % (0.0-5.0) 06/14/19 04:45 ABG Methemoglobin 0.6 % (0.0-1.5) 06/14/19 04:45 VBG pH 7.310 (7.320-7.420) L 06/02/19 07:15 Oxyhemoglobin 95.5 % (95.0-99.0) 06/14/19 04:45 FiO2 30 % 06/14/19 04:45 Sodium 143 mmol/L (137-145) 06/15/19 05:10 Potassium 3.4 mmol/L (3.6-5.0) L 06/15/19 05:10 Chloride 105.1 mmol/L (98-107) 06/15/19 05:10 Carbon Dioxide 29 mmol/L (22-30) 06/15/19 05:10 Anion Gap 12 mmol/L 06/15/19 05:10 BUN 37 mg/dL (9-20) H 06/15/19 05:10 Creatinine 1.0 mg/dL (0.8-1.5) 06/15/19 05:10 Estimated GFR > 60 ml/min 06/15/19 05:10 BUN/Creatinine Ratio 37 % 06/15/19 05:10 Glucose 138 mg/dL (75-100) H 06/15/19 05:10 POC Glucose 132 (70-105) H 06/15/19 05:23 Lactic Acid 1.10 mmol/L (0.7-2.0) 06/02/19 09:17 Calcium 8.0 mg/dL (8.4-10.2) L 06/15/19 05:10 Phosphorus 3.30 mg/dL (2.5-4.5) 06/15/19 05:10 Magnesium 2.00 mg/dL (1.7-2.3) 06/15/19 05:10 Total Bilirubin 4.10 mg/dL (0.1-1.2) H 06/11/19 00:22 Direct Bilirubin 3.7 mg/dL (0-0.2) H 06/10/19 09:25 Indirect Bilirubin 1.1 mg/dL 06/10/19 09:25 AST 89 units/L (5-40) H 06/11/19 00:22 ALT 77 units/L (7-56) H 06/11/19 00:22 Alkaline Phosphatase 154 units/L (35-129) H 06/11/19 00:22 Ammonia 16.0 umol/L (25-60) L 06/02/19 07:15 Lactate Dehydrogenase 214 units/L (91-180) H 06/13/19 06:11 Total Creatine Kinase 53 units/L (55-170) L 06/02/19 07:15 CK-MB (CK-2) 5.1 ng/mL (0.0-4.0) H 06/02/19 07:15 CK-MB (CK-2) Rel Index 9.6 (0-4) H 06/02/19 07:15 Troponin T 0.065 ng/mL (0.00-0.029) H 06/02/19 07:15 NT-Pro-B Natriuret Pep > 81624 pg/mL (0-900) H 06/02/19 07:15 Total Protein 5.3 g/dL (6.3-8.2) L 06/11/19 00:22 Albumin 1.7 g/dL (3.9-5) L 06/11/19 00:22 Albumin/Globulin Ratio 0.5 % 06/11/19 00:22 Prealbumin 0.106 g/L (0.200-0.400) L 06/11/19 05:58 Triglycerides 78 mg/dL (2-149) 06/11/19 05:58 Cholesterol 73 mg/dL (50-199) 06/02/19 07:15 LDL Cholesterol Direct 31 mg/dL (50-130) L 06/02/19 07:15 HDL Cholesterol 8 mg/dL (40-59) L 06/02/19 07:15 Cholesterol/HDL Ratio 9.12 % 06/02/19 07:15 Lipase 56 units/L (13-60) 06/02/19 07:15 Urine Color Clarita (Yellow) 06/02/19 10:37 Urine Turbidity Clear (Clear) 06/02/19 10:37 Urine pH 5.0 (5.0-7.0) 06/02/19 10:37 Ur Specific [place] 1.019 (1.003-1.030) 06/02/19 10:37 Urine Protein <15 mg/dl mg/dL (Negative) 06/02/19 10:37 Urine Glucose (UA) 50 mg/dL (Negative) 06/02/19 10:37 Urine Ketones Neg mg/dL (Negative) 06/02/19 10:37 Urine Blood Neg (Negative) 06/02/19 10:37 Urine Nitrite Neg (Negative) 06/02/19 10:37 Urine Bilirubin Neg (Negative) 06/02/19 10:37 Urine Urobilinogen 4.0 mg/dL (<2.0) 06/02/19 10:37 Ur Leukocyte Esterase Neg (Negative) 06/02/19 10:37 Urine WBC (Auto) 2.0 /HPF (0.0-6.0) 06/02/19 10:37 Urine RBC (Auto) 2.0 /HPF (0.0-6.0) 06/02/19 10:37 Urine Bacteria (Auto) 1+ /HPF (Negative) 06/02/19 10:37 Vancomycin Trough 11.6 ug/mL (5.0-20.0) 06/09/19 08:58 Blood Type A POSITIVE 06/13/19 11:17 Antibody Screen Negative 06/13/19 11:17 Crossmatch See Detail 06/13/19 11:17 Active Medications - Current Medications Current Medications: Generic Name Dose Route Start Last Admin Trade Name Freq PRN Reason Stop Dose Admin Albuterol 2.5 mg 06/02/19 11:28 06/13/19 15:45 Proventil IH 2.5 mg Q4H PRN Administration Shortness Of Breath Albuterol/Ipratropium 1 ampul 06/06/19 20:00 06/15/19 02:54 Duoneb *Not For Prn Use* IH 1 ampul Q6HRT ROSE Administration Arformoterol Tartrate 15 mcg 06/02/19 20:00 06/14/19 20:49 Brovana Nebu IH 15 mcg Q12HRT ROSE Administration Benzonatate 100 mg 06/13/19 14:54 Tessalon Perles PO Q8HR PRN Cough Budesonide 0.5 mg 06/02/19 20:00 06/14/19 20:49 Pulmicort IH 0.5 mg Q12HRT ROSE Administration Furosemide 40 mg 06/12/19 06:00 06/14/19 07:32 Lasix PO Not Given DAILY@0600 ROSE Guaifenesin 200 mg 06/13/19 14:54 Robitussin PO Q4H PRN Cough Heparin Sodium (Porcine) 5,000 unit 06/09/19 22:00 06/15/19 06:07 Heparin SUB-Q 5,000 unit Q8HR ROSE Administration Hydromorphone HCl 0.25 mg 06/05/19 10:55 06/15/19 06:06 Dilaudid IV 0.25 mg Q3H PRN Administration Pain , Severe (7-10) Hydrophilic Ointment 1 applic 06/13/19 17:20 Vaseline Lip Therapy TP Q2HR PRN Dry Lips Chlorpromazine HCl 25 mg/ 51 mls @ 100 mls/hr 06/08/19 15:00 Sodium Chloride IV Q4H PRN Hiccups Cefepime HCl 2 gm in 100 mls @ 200 mls/hr 06/10/19 18:00 06/14/19 19:14 Cefepime/Ns 2 Gm/100 Ml IV 200 mls/hr Q12H [facility] Administration Protocol Fentanyl Citrate 2,000 mcg in 100 mls @ 3.055 mls/hr 06/13/19 18:00 06/14/19 12:17 Fentanyl Drip Premix IV Infused TITR [facility] Titration Protocol 1 MCG/KG/HR Amino Acids/Electrolytes/Dextrose 1,560 mls @ 65 mls/hr 06/14/19 20:00 06/14/19 20:21 Tpn Adult IV 06/15/19 19:59 65 mls/hr DAILY@1999 [facility] Administration Protocol Fat Emulsion Intravenous 250 mls @ 21 mls/hr 06/14/19 20:00 06/14/19 20:20 Intralipid 20% IV 06/15/19 08:00 21 mls/hr DAILY@1999 ROSE Administration Potassium Chloride 10 meq in 100 mls @ 100 mls/hr 06/15/19 08:00 Kcl 10meq/100ml IV 06/15/19 10:59 Q1H [facility] Insulin Human Lispro 0 unit 06/08/19 06:00 06/15/19 06:19 Humalog SUB-Q Not Given Q6HR [facility] Protocol Metoprolol Tartrate 5 mg 06/14/19 20:00 06/14/19 20:21 Metoprolol IV 5 mg TID [facility] Administration Multi-Ingred Cream/Lotion/Oil/Oint 1 applic 06/13/19 17:20 Artificial Tears Ophth Oint OU Q4HR PRN Dry Eye(s) Ondansetron HCl 4 mg 06/11/19 15:26 06/11/19 19:34 Zofran IV 4 mg Q6H PRN Administration Nausea And Vomiting Pantoprazole Sodium 40 mg 06/04/19 10:00 06/14/19 21:50 Protonix IV 40 mg BID [facility] Administration Sodium Hypochlorite 1 applic 06/05/19 22:00 06/14/19 21:49 Dakin's Half Strength TP 1 applicatio BID ROSE Administration Nutrition/Malnutrition Assess - Dietary Evaluation Nutrition/Malnutrition Findings: Nutrition Notes Start: 06/03/19 1 1:22 Freq: Status: Active Protocol: Document 06/14/19 09:58 WILLIAMS (Rec: 12/06/19 10:14 WILLIAMS [id number]) Co-Sign 06/14/19 09:58 LP Nutrition Notes Initial or Follow up Reassessment Current Diagnosis CKD(stage I-IV),Decubitus( Pressure Ulcer),Sepsis, Hypertension,Heart Failure Other Pertinent Diagnosis Perforated viscus S/P exp lap Current Diet CPN at 65 ml/hr Labs/Tests BUN 43 Pertinent Medications Dilaudid Height 5 ft 7 in Weight 61.1 kg [place] Body Weight (kg) 67.27 BMI 21.1 Subjective/Other Information CPN day 11. Pt has been reintubated d/t worsening respiratory distress. Percent of energy/protein needs met: 97%/100% Burn Absent Trauma Absent GI Symptoms None Current % PO Negligible Minimum of two criteria Yes Body Fat Depletion Mild depletion (non-severe) Muscle Mass Mild Depletion (non-severe) Fluid Accumulation Mild (non-severe) Reduced [employer] Principal Strength Measurably Reduced (severe) #1 Nutrition Diagnosis Malnutrition Diagnosis Progress(for reassessment Continues documentation) Is patient on ventilator? Yes Is Patient Ambulatory and/or Out of Bed No REE-([facility]-confined to bed) [phone] Calculation Used for Recommendations [facility] Additional Notes Protein: 73-122g (1.2-2g/kg) Fluid: 1 ml/kcal or per MD Nutrition Intervention Change Diet Order: Continue CPN Nutrition Support: CPN at 65 ml/hr: 2065 mOsm, 6. 1% AA, lipids, 80 mEq K, MVI Kcal 2,070 Protein (gm) 95 Carbohydrates (gm) 350 Fat (gm) 50 Fluid (mL) 1,810 Fiber (gm) 0 Add Supplement/Snack (indicate name/kcal D/C Ensure Enlive TID /protein ) Goal #1 Meet at least 80% of energy and protein needs via CPN Anticipated Discharge Needs: Unable to determine at this time Follow-Up By: 06/15/19 Additional Comments Labs in AM: BMP, Mg, Phos
--- NOTE | 2019-06-15 07:54 | Event Note ---
Date: 06/15/19 Patient is a 63 yo man with a history of NICMP, chronic HFrEF 10-15%, NSVT declines LifeVest/AICD, CKD 3, HTN and mod to severe TR, b/l LE wounds, bedbound who presents to [facility] ED with c/o abdominal pain for 3 days. He had multiple bilateral lower extremity wound and stage I to 2 lower extremity ulcer covered with pus. CT abdomen and pelvis suggestive of pneumoperitoneum. General surgery was consulted and patient was taken for OR for exploratory laparotomy by general surgeon. He also received empiric antibiotics. He was intubated per-operatively,extubated 06/05, transferred to Surgical floor. Patient had wound dehiscence of the midline abdominal wall With eviscerated omentum in the middle of the incision Surgery has taken the patient to the OR s/p wound closure, acute respiratory failure requiring intubation, transferred to ICU. Pt now resting quietly, extubated. denies cp or sob vss tel sinus tach chest diminished breath sounds cor rrr Imp: pt is presently stable from the cardiac standpoint. continue current mgt/per pulm and inf dis
[2019-06-15] MEDS ORDERED: POTASSIUM CHLORIDE 10 MEQ 10 MEQ/100 ML BAG IV SCH (08:00)
[2019-06-15] MEDS: METOPROLOL TARTRATE 5 MG/5 ML INJ IV SCH ×2 (08:11→12:59)
--- NOTE | 2019-06-15 08:30 | Progress Note ---
Assessment and Plan - Patient Problems (1) Perforated gastric ulcer Current Visit: Yes Status: Acute Plan to address problem: 63 yo M s/p exploratory laparotomy, omental patch of perforated gastric ulcer POD 12, s/p reclosure of abdominal wall - POD#2. 1. sepsis 2. perforated gastric ulcer 3. severe malnutrition 4. b/l pleural effusions 5. bedbound 6. infected b/l LE wounds with likely chronic limb ischemia 7. cardiomyopathy 8. CHF 9. abdominal dehiscence Arterial duplex - no Plan: 1. Neuro - appears appropriate 2. CV - BP and HR stable. Cardiology on board 3. Resp - encourage pulm toilet 4. GI - start full liquid diet with supplements. Abdominal binder must stay on at all times. Do not place NGT/OGT 5. Endo - Blood glucose monitoring per protocol 6. ID - no new issues. 7. - garcia for strict I/Os. 8. Musc - DVT ppx. Offloading. Dr. Oakes managing LE for debridement vs amputation. 9. Disp - ok to move out of ICU from my standpoint. Please call with questions. Subjective Date of service: 06/15/19 Patient Reports: Positive: no new complaints, feels better. Negative: nausea, vomiting Objective Vital Signs - 12hr 06/14/19 06/14/19 06/14/19 20:31 20:45 20:50 Temperature Pulse Rate 116 H 103 H Pulse Rate [ 104 H Anterior Throughout] Respiratory 24 22 Rate Respiratory 25 H Rate [Anterior Throughout] Blood Pressure 148/99 148/99 O2 Sat by Pulse 99 100 Oximetry 06/14/19 06/14/19 06/14/19 21:00 21:03 21:15 Temperature Pulse Rate 103 H 104 H 108 H Pulse Rate [ Anterior Throughout] Respiratory 22 22 22 Rate Respiratory Rate [Anterior Throughout] Blood Pressure 122/83 122/83 122/83 O2 Sat by Pulse 99 97 99 Oximetry 06/14/19 06/14/19 06/14/19 21:31 21:45 22:00 Temperature Pulse Rate 110 H 111 H 113 H Pulse Rate [ Anterior Throughout] Respiratory 22 21 22 Rate Respiratory Rate [Anterior Throughout] Blood Pressure 122/83 122/83 128/90 O2 Sat by Pulse 95 97 94 Oximetry 06/14/19 06/14/19 06/14/19 22:15 22:31 22:45 Temperature Pulse Rate 113 H 112 H 113 H Pulse Rate [ Anterior Throughout] Respiratory 15 19 16 Rate Respiratory Rate [Anterior Throughout] Blood Pressure 128/90 128/90 128/90 O2 Sat by Pulse 97 96 94 Oximetry 06/14/19 06/14/19 06/14/19 23:00 23:15 23:31 Temperature Pulse Rate 111 H 113 H 111 H Pulse Rate [ Anterior Throughout] Respiratory 16 19 18 Rate Respiratory Rate [Anterior Throughout] Blood Pressure 124/85 124/85 124/85 O2 Sat by Pulse 95 95 96 Oximetry 06/14/19 06/15/19 06/15/19 23:45 00:00 00:15 Temperature Pulse Rate 112 H 113 H 114 H Pulse Rate [ Anterior Throughout] Respiratory 19 19 17 Rate Respiratory Rate [Anterior Throughout] Blood Pressure 124/85 130/90 130/90 O2 Sat by Pulse 95 99 99 Oximetry 06/15/19 06/15/19 06/15/19 00:31 00:45 01:00 Temperature Pulse Rate 113 H 113 H 114 H Pulse Rate [ Anterior Throughout] Respiratory 19 23 19 Rate Respiratory Rate [Anterior Throughout] Blood Pressure 130/90 130/90 134/90 O2 Sat by Pulse 98 100 99 Oximetry 06/15/19 06/15/19 06/15/19 01:08 01:15 01:31 Temperature Pulse Rate 115 H 112 H 113 H Pulse Rate [ Anterior Throughout] Respiratory 24 16 17 Rate Respiratory Rate [Anterior Throughout] Blood Pressure 134/90 134/90 134/90 O2 Sat by Pulse 100 100 100 Oximetry 06/15/19 06/15/19 06/15/19 01:45 02:00 02:15 Temperature Pulse Rate 114 H 111 H 113 H Pulse Rate [ 112 H Anterior Throughout] Respiratory 21 16 21 Rate Respiratory 15 Rate [Anterior Throughout] Blood Pressure 134/90 132/91 134/90 O2 Sat by Pulse 100 100 100 Oximetry 06/15/19 06/15/19 06/15/19 02:31 02:45 03:00 Temperature Pulse Rate 113 H 111 H 113 H Pulse Rate [ Anterior Throughout] Respiratory 16 17 18 Rate Respiratory Rate [Anterior Throughout] Blood Pressure 134/90 132/91 123/81 O2 Sat by Pulse 99 99 Oximetry 06/15/19 06/15/19 06/15/19 03:15 03:31 03:45 Temperature Pulse Rate 112 H 112 H 110 H Pulse Rate [ Anterior Throughout] Respiratory 13 18 13 Rate Respiratory Rate [Anterior Throughout] Blood Pressure 123/81 123/81 123/81 O2 Sat by Pulse 99 100 99 Oximetry 06/15/19 06/15/19 06/15/19 04:00 04:15 04:31 Temperature Pulse Rate 114 H 113 H 111 H Pulse Rate [ Anterior Throughout] Respiratory 20 19 24 Rate Respiratory Rate [Anterior Throughout] Blood Pressure 126/84 126/84 126/84 O2 Sat by Pulse 97 100 100 Oximetry 06/15/19 06/15/19 06/15/19 04:45 05:00 05:15 Temperature Pulse Rate 115 H 114 H 117 H Pulse Rate [ Anterior Throughout] Respiratory 22 16 25 H Rate Respiratory Rate [Anterior Throughout] Blood Pressure 126/84 132/87 132/87 O2 Sat by Pulse 96 99 100 Oximetry 06/15/19 06/15/19 06/15/19 05:31 05:45 06:01 Temperature Pulse Rate 116 H 114 H 117 H Pulse Rate [ Anterior Throughout] Respiratory 18 13 22 Rate Respiratory Rate [Anterior Throughout] Blood Pressure 132/87 132/87 120/74 O2 Sat by Pulse 100 100 98 Oximetry 06/15/19 06/15/19 06/15/19 06:15 06:31 06:45 Temperature Pulse Rate 114 H 118 H 115 H Pulse Rate [ Anterior Throughout] Respiratory 16 20 18 Rate Respiratory Rate [Anterior Throughout] Blood Pressure 120/74 120/74 120/74 O2 Sat by Pulse 100 99 99 Oximetry 06/15/19 06/15/19 06/15/19 07:00 07:15 07:31 Temperature Pulse Rate 116 H 116 H 116 H Pulse Rate [ Anterior Throughout] Respiratory 15 16 19 Rate Respiratory Rate [Anterior Throughout] Blood Pressure 125/86 120/74 120/74 O2 Sat by Pulse 99 100 100 Oximetry 06/15/19 06/15/19 06/15/19 07:45 08:00 08:11 Temperature 97.1 F L Pulse Rate 115 H 119 H 118 H Pulse Rate [ Anterior Throughout] Respiratory 13 12 Rate Respiratory Rate [Anterior Throughout] Blood Pressure 125/86 125/86 129/89 O2 Sat by Pulse 100 100 Oximetry - General physical appearance no distress, no pain, other (looks well) - Eyes normal occular movement - Respiratory normal expansion, normal respiratory effort - Abdomen soft, not distended, not guarding, not rigid, surgical scars (mild erythema on upper aspect of incisions. No drainage. ) - Labs 06/14/19 05:45 06/15/19 05:10 Diabetes panel 06/15/19 Range/Units 05:10 Sodium 143 (137-145) mmol/L Potassium 3.4 L (3.6-5.0) mmol/L Chloride 105.1 (98-107) mmol/L Carbon Dioxide 29 (22-30) mmol/L BUN 37 H (9-20) mg/dL Creatinine 1.0 (0.8-1.5) mg/dL Glucose 138 H (75-100) mg/dL Calcium 8.0 L (8.4-10.2) mg/dL Calcium panel 06/15/19 Range/Units 05:10 Calcium 8.0 L (8.4-10.2) mg/dL Phosphorus 3.30 (2.5-4.5) mg/dL Pituitary panel 06/15/19 Range/Units 05:10 Sodium 143 (137-145) mmol/L Potassium 3.4 L (3.6-5.0) mmol/L Chloride 105.1 (98-107) mmol/L Carbon Dioxide 29 (22-30) mmol/L BUN 37 H (9-20) mg/dL Creatinine 1.0 (0.8-1.5) mg/dL Glucose 138 H (75-100) mg/dL Calcium 8.0 L (8.4-10.2) mg/dL Adrenal panel 06/15/19 Range/Units 05:10 Sodium 143 (137-145) mmol/L Potassium 3.4 L (3.6-5.0) mmol/L Chloride 105.1 (98-107) mmol/L Carbon Dioxide 29 (22-30) mmol/L BUN 37 H (9-20) mg/dL Creatinine 1.0 (0.8-1.5) mg/dL Glucose 138 H (75-100) mg/dL Calcium 8.0 L (8.4-10.2) mg/dL
[2019-06-15] MEDS: BUDESONIDE 0.5 MG/2 ML NEBU IH SCH ×2 (08:40→23:51)
[2019-06-15] MEDS: ARFORMOTEROL 15 MCG/2 ML NEBU IH SCH (08:40)
[2019-06-15] MEDS ORDERED: POTASSIUM CHLORIDE ER 10 MEQ TAB PO ONE (09:15)
[2019-06-15] MEDS: PANTOPRAZOLE 40 MG INJ IV SCH ×2 (09:58→21:23)
[2019-06-15] MEDS: SODIUM HYPOCHLORITE, DAKIN'S 1/2 STRENGTH (0.25%) 473 ML TOPICAL SOLN TP SCH ×2 (10:00→21:31)
--- NOTE | 2019-06-15 14:15 | Progress Note ---
Assessment and Plan Stable from a critical care standpoint to transfer out. Ab Binder on at all times. Very important. Continue COPD regimen Prognosis remains guarded to poor. Subjective Date of service: 06/15/19 Principal diagnosis: elevated LFTs Interval history: Successful extubation on yesterday. STable. Now on room air. Surgery has seen this am. Objective Vital Signs - 12hr 06/15/19 06/15/19 06/15/19 02:15 02:31 02:45 Temperature Pulse Rate 113 H 113 H 111 H Pulse Rate [ Anterior Throughout] Pulse Rate [ From Monitor] Respiratory 21 16 17 Rate Respiratory Rate [Anterior Throughout] Blood Pressure 134/90 134/90 132/91 O2 Sat by Pulse 100 99 99 Oximetry 06/15/19 06/15/19 06/15/19 03:00 03:15 03:31 Temperature Pulse Rate 113 H 112 H 112 H Pulse Rate [ Anterior Throughout] Pulse Rate [ From Monitor] Respiratory 18 13 18 Rate Respiratory Rate [Anterior Throughout] Blood Pressure 123/81 123/81 123/81 O2 Sat by Pulse 99 100 Oximetry 06/15/19 06/15/19 06/15/19 03:45 04:00 04:15 Temperature Pulse Rate 110 H 114 H 113 H Pulse Rate [ Anterior Throughout] Pulse Rate [ From Monitor] Respiratory 13 20 19 Rate Respiratory Rate [Anterior Throughout] Blood Pressure 123/81 126/84 126/84 O2 Sat by Pulse 99 97 100 Oximetry 06/15/19 06/15/19 06/15/19 04:31 04:45 05:00 Temperature Pulse Rate 111 H 115 H 114 H Pulse Rate [ Anterior Throughout] Pulse Rate [ From Monitor] Respiratory 24 22 16 Rate Respiratory Rate [Anterior Throughout] Blood Pressure 126/84 126/84 132/87 O2 Sat by Pulse 100 96 99 Oximetry 06/15/19 06/15/19 06/15/19 05:15 05:31 05:45 Temperature Pulse Rate 117 H 116 H 114 H Pulse Rate [ Anterior Throughout] Pulse Rate [ From Monitor] Respiratory 25 H 18 13 Rate Respiratory Rate [Anterior Throughout] Blood Pressure 132/87 132/87 132/87 O2 Sat by Pulse 100 100 100 Oximetry 06/15/19 06/15/19 06/15/19 06:01 06:15 06:31 Temperature Pulse Rate 117 H 114 H 118 H Pulse Rate [ Anterior Throughout] Pulse Rate [ From Monitor] Respiratory 22 16 20 Rate Respiratory Rate [Anterior Throughout] Blood Pressure 120/74 120/74 120/74 O2 Sat by Pulse 98 100 99 Oximetry 06/15/19 06/15/19 06/15/19 06:45 07:00 07:15 Temperature Pulse Rate 115 H 116 H 116 H Pulse Rate [ Anterior Throughout] Pulse Rate [ 123 H From Monitor] Respiratory 18 17 16 Rate Respiratory Rate [Anterior Throughout] Blood Pressure 120/74 125/86 120/74 O2 Sat by Pulse 99 98 100 Oximetry 06/15/19 06/15/19 06/15/19 07:31 07:45 08:00 Temperature 97.1 F L Pulse Rate 116 H 115 H 123 H Pulse Rate [ 102 H Anterior Throughout] Pulse Rate [ From Monitor] Respiratory 19 13 12 Rate Respiratory 20 Rate [Anterior Throughout] Blood Pressure 120/74 125/86 125/86 O2 Sat by Pulse 100 100 100 Oximetry 06/15/19 06/15/19 06/15/19 08:11 08:15 08:31 Temperature Pulse Rate 118 H 118 H 104 H Pulse Rate [ Anterior Throughout] Pulse Rate [ From Monitor] Respiratory 20 16 Rate Respiratory Rate [Anterior Throughout] Blood Pressure 129/89 129/89 129/89 O2 Sat by Pulse 99 100 Oximetry 06/15/19 06/15/19 06/15/19 08:44 08:45 09:01 Temperature Pulse Rate 102 H 105 H Pulse Rate [ Anterior Throughout] Pulse Rate [ From Monitor] Respiratory 17 22 Rate Respiratory Rate [Anterior Throughout] Blood Pressure 129/89 129/89 O2 Sat by Pulse 99 99 92 Oximetry 06/15/19 06/15/19 06/15/19 09:15 09:31 09:45 Temperature Pulse Rate 105 H 105 H 104 H Pulse Rate [ Anterior Throughout] Pulse Rate [ From Monitor] Respiratory 24 13 14 Rate Respiratory Rate [Anterior Throughout] Blood Pressure 129/89 129/89 129/89 O2 Sat by Pulse 97 96 97 Oximetry 06/15/19 06/15/19 06/15/19 10:01 10:15 10:31 Temperature Pulse Rate 105 H 106 H 103 H Pulse Rate [ Anterior Throughout] Pulse Rate [ From Monitor] Respiratory 17 19 14 Rate Respiratory Rate [Anterior Throughout] Blood Pressure 129/89 111/81 111/81 O2 Sat by Pulse 98 99 98 Oximetry 06/15/19 06/15/19 06/15/19 10:45 11:00 11:15 Temperature Pulse Rate 104 H 104 H 105 H Pulse Rate [ Anterior Throughout] Pulse Rate [ 108 H From Monitor] Respiratory 16 17 16 Rate Respiratory Rate [Anterior Throughout] Blood Pressure 111/81 120/87 120/87 O2 Sat by Pulse 98 98 97 Oximetry 06/15/19 06/15/19 06/15/19 11:31 11:45 12:00 Temperature 97.5 F L Pulse Rate 107 H 106 H Pulse Rate [ Anterior Throughout] Pulse Rate [ From Monitor] Respiratory 22 26 H 20 Rate Respiratory Rate [Anterior Throughout] Blood Pressure 120/87 120/87 119/87 O2 Sat by Pulse 98 97 99 Oximetry 06/15/19 12:59 Temperature Pulse Rate 109 H Pulse Rate [ Anterior Throughout] Pulse Rate [ From Monitor] Respiratory Rate Respiratory Rate [Anterior Throughout] Blood Pressure 119/87 O2 Sat by Pulse Oximetry Constitutional: no acute distress, alert Eyes: non-icteric ENT: oropharynx moist Neck: supple Effort: normal Ascultation: Bilateral: clear, other (coarse BS bilaterally) Cardiovascular: regular rate and rhythm (no mrg) Gastrointestinal: absent bowel sounds, non-tender Integumentary: other (necrotic ulcers lower extremities) Extremities: no cyanosis, edema (1+ generalized edema) Neurologic: normal mental status, non-focal exam Psychiatric: mood appropriate, affect normal CBC and BMP: 06/14/19 05:45 06/15/19 05:10 ABG, PT/INR, D-dimer: ABG POC ABG pH 7.320 (7.35-7.45) L 06/13/19 17:23 ABG pH 7.460 pH Units (7.350-7.450) H 06/14/19 04:45 POC ABG pCO2 53.9 (35-45) H 06/13/19 17:23 ABG pCO2 39.1 mm Hg 06/14/19 04:45 POC ABG pO2 121 (80-105) H 06/13/19 17:23 ABG pO2 107.6 mm Hg (80.0-90.0) H 06/14/19 04:45 POC ABG HCO3 27.8 (22-26 mml/L) 06/13/19 17:23 POC ABG Total CO2 29 (23-27mmol/L) 06/13/19 17:23 POC ABG O2 Sat 98 06/13/19 17:23 ABG O2 Saturation 98.0 % (95.0-99.0) 06/14/19 04:45 PT/INR, D-dimer PT 17.9 Sec. (12.2-14.9) H 06/02/19 07:15 INR 1.50 (0.87-1.13) H 06/02/19 07:15 Abnormal lab findings: Abnormal Labs 06/02/19 06/02/19 06/02/19 07:15 07:15 07:15 WBC 21.0 H RBC 5.17 H Hgb Hct MCH 27 L RDW 23.8 H Lymph % (Auto) [place] % (Auto) Baso % (Auto) [place] # Baso # Seg Neutrophils % Seg Neuts % (Manual) 97.0 H Lymphocytes % (Manual) 1.0 L Nucleated RBC % 3.0 H Seg Neutrophils # Seg Neutrophils # Man 20.4 H Lymphocytes # (Manual) 0.2 L Basophils # (Manual) PT 17.9 H INR 1.50 H POC ABG pH ABG pH POC ABG pCO2 POC ABG pO2 ABG pO2 ABG HCO3 ABG Base Excess VBG pH Sodium 130 L Potassium Chloride 97.1 L Carbon Dioxide 16 L BUN 47 H Creatinine Glucose 139 H POC Glucose Lactic Acid Calcium Phosphorus Magnesium Total Bilirubin 6.40 H Direct Bilirubin 4.5 H AST 50 H ALT Alkaline Phosphatase 179 H Ammonia Lactate Dehydrogenase Total Creatine Kinase 53 L CK-MB (CK-2) 5.1 H CK-MB (CK-2) Rel Index 9.6 H Troponin T NT-Pro-B Natriuret Pep > 38465 H Total Protein 5.8 L Albumin 2.1 L Prealbumin LDL Cholesterol Direct HDL Cholesterol Vancomycin Trough Crossmatch 06/02/19 06/02/19 06/02/19 07:15 07:15 07:15 WBC RBC Hgb Hct MCH RDW Lymph % (Auto) [place] % (Auto) Baso % (Auto) [place] # Baso # Seg Neutrophils % Seg Neuts % (Manual) Lymphocytes % (Manual) Nucleated RBC % Seg Neutrophils # Seg Neutrophils # Man Lymphocytes # (Manual) Basophils # (Manual) PT INR POC ABG pH ABG pH POC ABG pCO2 POC ABG pO2 ABG pO2 ABG HCO3 ABG Base Excess VBG pH 7.310 L Sodium Potassium Chloride Carbon Dioxide BUN Creatinine Glucose POC Glucose Lactic Acid 2.40 H* Calcium Phosphorus Magnesium Total Bilirubin Direct Bilirubin AST ALT Alkaline Phosphatase Ammonia 16.0 L Lactate Dehydrogenase Total Creatine Kinase CK-MB (CK-2) CK-MB (CK-2) Rel Index Troponin T NT-Pro-B Natriuret Pep Total Protein Albumin Prealbumin LDL Cholesterol Direct HDL Cholesterol Vancomycin Trough Crossmatch 06/02/19 06/02/19 06/02/19 07:15 15:33 15:53 WBC RBC Hgb Hct MCH RDW Lymph % (Auto) [place] % (Auto) Baso % (Auto) [place] # Baso # Seg Neutrophils % Seg Neuts % (Manual) Lymphocytes % (Manual) Nucleated RBC % Seg Neutrophils # Seg Neutrophils # Man Lymphocytes # (Manual) Basophils # (Manual) PT INR POC ABG pH 7.229 L ABG pH POC ABG pCO2 49.5 H POC ABG pO2 ABG pO2 ABG HCO3 ABG Base Excess VBG pH Sodium Potassium Chloride Carbon Dioxide BUN Creatinine Glucose POC Glucose 66 L Lactic Acid Calcium Phosphorus Magnesium Total Bilirubin Direct Bilirubin AST ALT Alkaline Phosphatase Ammonia Lactate Dehydrogenase Total Creatine Kinase CK-MB (CK-2) CK-MB (CK-2) Rel Index Troponin T 0.065 H NT-Pro-B Natriuret Pep Total Protein Albumin Prealbumin LDL Cholesterol Direct 31 L HDL Cholesterol 8 L Vancomycin Trough Crossmatch 06/02/19 06/02/19 06/03/19 16:40 17:10 04:06 WBC RBC Hgb Hct MCH RDW Lymph % (Auto) [place] % (Auto) Baso % (Auto) [place] # Baso # Seg Neutrophils % Seg Neuts % (Manual) Lymphocytes % (Manual) Nucleated RBC % Seg Neutrophils # Seg Neutrophils # Man Lymphocytes # (Manual) Basophils # (Manual) PT INR POC ABG pH 7.259 L ABG pH POC ABG pCO2 33.9 L POC ABG pO2 221 H 146 H ABG pO2 ABG HCO3 ABG Base Excess VBG pH Sodium Potassium Chloride Carbon Dioxide BUN Creatinine Glucose POC Glucose 151 H Lactic Acid Calcium Phosphorus Magnesium Total Bilirubin Direct Bilirubin AST ALT Alkaline Phosphatase Ammonia Lactate Dehydrogenase Total Creatine Kinase CK-MB (CK-2) CK-MB (CK-2) Rel Index Troponin T NT-Pro-B Natriuret Pep Total Protein Albumin Prealbumin LDL Cholesterol Direct HDL Cholesterol Vancomycin Trough Crossmatch 06/03/19 06/03/19 06/03/19 04:41 04:41 17:23 WBC 17.5 H RBC Hgb Hct MCH 27 L RDW 25.0 H Lymph % (Auto) [place] % (Auto) Baso % (Auto) [place] # Baso # Seg Neutrophils % Seg Neuts % (Manual) 96.0 H Lymphocytes % (Manual) 0 L Nucleated RBC % 1.0 H Seg Neutrophils # Seg Neutrophils # Man 16.8 H Lymphocytes # (Manual) 0.0 L Basophils # (Manual) PT INR POC ABG pH ABG pH POC ABG pCO2 POC ABG pO2 ABG pO2 ABG HCO3 ABG Base Excess VBG pH Sodium Potassium Chloride Carbon Dioxide 17 L BUN 42 H Creatinine Glucose 59 L POC Glucose 113 H Lactic Acid Calcium Phosphorus Magnesium Total Bilirubin 7.00 H Direct Bilirubin AST ALT Alkaline Phosphatase 153 H Ammonia Lactate Dehydrogenase Total Creatine Kinase CK-MB (CK-2) CK-MB (CK-2) Rel Index Troponin T NT-Pro-B Natriuret Pep Total Protein 5.9 L Albumin 1.7 L Prealbumin LDL Cholesterol Direct HDL Cholesterol Vancomycin Trough Crossmatch 06/03/19 06/04/19 06/04/19 23:37 05:10 05:10 WBC 16.7 H RBC Hgb Hct MCH 27 L RDW 24.5 H Lymph % (Auto) [place] % (Auto) Baso % (Auto) [place] # Baso # Seg Neutrophils % Seg Neuts % (Manual) 94.0 H Lymphocytes % (Manual) 3.0 L Nucleated RBC % Seg Neutrophils # Seg Neutrophils # Man 15.7 H Lymphocytes # (Manual) 0.5 L Basophils # (Manual) PT INR POC ABG pH ABG pH POC ABG pCO2 POC ABG pO2 ABG pO2 ABG HCO3 ABG Base Excess VBG pH Sodium Potassium Chloride Carbon Dioxide BUN 39 H Creatinine Glucose 136 H POC Glucose 126 H Lactic Acid Calcium 8.3 L Phosphorus Magnesium 1.30 L Total Bilirubin 7.70 H Direct Bilirubin AST ALT Alkaline Phosphatase 140 H Ammonia Lactate Dehydrogenase Total Creatine Kinase CK-MB (CK-2) CK-MB (CK-2) Rel Index Troponin T NT-Pro-B Natriuret Pep Total Protein 5.6 L Albumin 1.7 L Prealbumin LDL Cholesterol Direct HDL Cholesterol Vancomycin Trough Crossmatch 06/04/19 06/04/19 06/04/19 05:44 13:50 18:05 WBC RBC Hgb Hct MCH RDW Lymph % (Auto) [place] % (Auto) Baso % (Auto) [place] # Baso # Seg Neutrophils % Seg Neuts % (Manual) Lymphocytes % (Manual) Nucleated RBC % Seg Neutrophils # Seg Neutrophils # Man Lymphocytes # (Manual) Basophils # (Manual) PT INR POC ABG pH ABG pH POC ABG pCO2 POC ABG pO2 ABG pO2 ABG HCO3 ABG Base Excess VBG pH Sodium Potassium Chloride Carbon Dioxide BUN Creatinine Glucose POC Glucose 124 H 137 H 120 H Lactic Acid Calcium Phosphorus Magnesium Total Bilirubin Direct Bilirubin AST ALT Alkaline Phosphatase Ammonia Lactate Dehydrogenase Total Creatine Kinase CK-MB (CK-2) CK-MB (CK-2) Rel Index Troponin T NT-Pro-B Natriuret Pep Total Protein Albumin Prealbumin LDL Cholesterol Direct HDL Cholesterol Vancomycin Trough Crossmatch 06/05/19 06/05/19 06/05/19 00:58 04:20 04:20 WBC 15.0 H RBC Hgb Hct MCH 27 L RDW 25.0 H Lymph % (Auto) [place] % (Auto) Baso % (Auto) [place] # Baso # Seg Neutrophils % Seg Neuts % (Manual) Lymphocytes % (Manual) Nucleated RBC % Seg Neutrophils # Seg Neutrophils # Man Lymphocytes # (Manual) Basophils # (Manual) PT INR POC ABG pH ABG pH POC ABG pCO2 POC ABG pO2 ABG pO2 ABG HCO3 ABG Base Excess VBG pH Sodium Potassium Chloride Carbon Dioxide BUN 52 H Creatinine Glucose 137 H POC Glucose 114 H Lactic Acid Calcium 7.8 L Phosphorus Magnesium Total Bilirubin Direct Bilirubin AST ALT Alkaline Phosphatase Ammonia Lactate Dehydrogenase Total Creatine Kinase CK-MB (CK-2) CK-MB (CK-2) Rel Index Troponin T NT-Pro-B Natriuret Pep Total Protein Albumin Prealbumin LDL Cholesterol Direct HDL Cholesterol Vancomycin Trough Crossmatch 06/05/19 06/05/19 06/05/19 05:39 05:45 09:45 WBC RBC Hgb Hct MCH RDW Lymph % (Auto) [place] % (Auto) Baso % (Auto) [place] # Baso # Seg Neutrophils % Seg Neuts % (Manual) Lymphocytes % (Manual) Nucleated RBC % Seg Neutrophils # Seg Neutrophils # Man Lymphocytes # (Manual) Basophils # (Manual) PT INR POC ABG pH ABG pH POC ABG pCO2 POC ABG pO2 108 H ABG pO2 ABG HCO3 ABG Base Excess VBG pH Sodium Potassium Chloride Carbon Dioxide BUN Creatinine Glucose POC Glucose 111 H Lactic Acid Calcium Phosphorus Magnesium Total Bilirubin Direct Bilirubin AST ALT Alkaline Phosphatase Ammonia Lactate Dehydrogenase Total Creatine Kinase CK-MB (CK-2) CK-MB (CK-2) Rel Index Troponin T NT-Pro-B Natriuret Pep Total Protein Albumin Prealbumin LDL Cholesterol Direct HDL Cholesterol Vancomycin Trough 20.1 H Crossmatch 06/05/19 06/05/19 06/06/19 13:25 18:27 00:01 WBC RBC Hgb Hct MCH RDW Lymph % (Auto) [place] % (Auto) Baso % (Auto) [place] # Baso # Seg Neutrophils % Seg Neuts % (Manual) Lymphocytes % (Manual) Nucleated RBC % Seg Neutrophils # Seg Neutrophils # Man Lymphocytes # (Manual) Basophils # (Manual) PT INR POC ABG pH ABG pH POC ABG pCO2 POC ABG pO2 ABG pO2 ABG HCO3 ABG Base Excess VBG pH Sodium Potassium Chloride Carbon Dioxide BUN Creatinine Glucose POC Glucose 152 H 194 H 153 H Lactic Acid Calcium Phosphorus Magnesium Total Bilirubin Direct Bilirubin AST ALT Alkaline Phosphatase Ammonia Lactate Dehydrogenase Total Creatine Kinase CK-MB (CK-2) CK-MB (CK-2) Rel Index Troponin T NT-Pro-B Natriuret Pep Total Protein Albumin Prealbumin LDL Cholesterol Direct HDL Cholesterol Vancomycin Trough Crossmatch 06/06/19 06/06/19 06/06/19 04:20 05:45 12:32 WBC RBC Hgb Hct MCH RDW Lymph % (Auto) [place] % (Auto) Baso % (Auto) [place] # Baso # Seg Neutrophils % Seg Neuts % (Manual) Lymphocytes % (Manual) Nucleated RBC % Seg Neutrophils # Seg Neutrophils # Man Lymphocytes # (Manual) Basophils # (Manual) PT INR POC ABG pH ABG pH POC ABG pCO2 POC ABG pO2 ABG pO2 ABG HCO3 ABG Base Excess VBG pH Sodium Potassium Chloride Carbon Dioxide BUN 62 H Creatinine Glucose 141 H POC Glucose 161 H 131 H Lactic Acid Calcium 7.7 L Phosphorus 2.40 L Magnesium Total Bilirubin Direct Bilirubin AST ALT Alkaline Phosphatase Ammonia Lactate Dehydrogenase Total Creatine Kinase CK-MB (CK-2) CK-MB (CK-2) Rel Index Troponin T NT-Pro-B Natriuret Pep Total Protein Albumin Prealbumin LDL Cholesterol Direct HDL Cholesterol Vancomycin Trough Crossmatch 06/07/19 06/07/19 06/07/19 02:07 05:36 05:36 WBC 25.3 H RBC Hgb 10.8 L Hct 33.7 L MCH 27 L RDW 26.7 H Lymph % (Auto) [place] % (Auto) Baso % (Auto) [place] # Baso # Seg Neutrophils % Seg Neuts % (Manual) Lymphocytes % (Manual) Nucleated RBC % Seg Neutrophils # Seg Neutrophils # Man Lymphocytes # (Manual) Basophils # (Manual) PT INR POC ABG pH ABG pH POC ABG pCO2 POC ABG pO2 ABG pO2 ABG HCO3 ABG Base Excess VBG pH Sodium 135 L Potassium Chloride 93.6 L Carbon Dioxide BUN 58 H Creatinine Glucose 131 H POC Glucose 165 H Lactic Acid Calcium 8.0 L Phosphorus Magnesium Total Bilirubin Direct Bilirubin AST ALT Alkaline Phosphatase Ammonia Lactate Dehydrogenase Total Creatine Kinase CK-MB (CK-2) CK-MB (CK-2) Rel Index Troponin T NT-Pro-B Natriuret Pep Total Protein Albumin Prealbumin LDL Cholesterol Direct HDL Cholesterol Vancomycin Trough Crossmatch 06/07/19 06/07/19 06/07/19 09:44 18:05 23:51 WBC RBC Hgb Hct MCH RDW Lymph % (Auto) [place] % (Auto) Baso % (Auto) [place] # Baso # Seg Neutrophils % Seg Neuts % (Manual) Lymphocytes % (Manual) Nucleated RBC % Seg Neutrophils # Seg Neutrophils # Man Lymphocytes # (Manual) Basophils # (Manual) PT INR POC ABG pH 7.508 H ABG pH POC ABG pCO2 POC ABG pO2 75 L ABG pO2 ABG HCO3 ABG Base Excess VBG pH Sodium Potassium Chloride Carbon Dioxide BUN Creatinine Glucose POC Glucose 137 H 180 H Lactic Acid Calcium Phosphorus Magnesium Total Bilirubin Direct Bilirubin AST ALT Alkaline Phosphatase Ammonia Lactate Dehydrogenase Total Creatine Kinase CK-MB (CK-2) CK-MB (CK-2) Rel Index Troponin T NT-Pro-B Natriuret Pep Total Protein Albumin Prealbumin LDL Cholesterol Direct HDL Cholesterol Vancomycin Trough Crossmatch 06/08/19 06/08/19 06/08/19 05:07 05:07 06:26 WBC 25.1 H RBC 3.21 L Hgb 8.8 L Hct 27.3 L D MCH RDW 27.7 H Lymph % (Auto) [place] % (Auto) Baso % (Auto) [place] # Baso # Seg Neutrophils % Seg Neuts % (Manual) Lymphocytes % (Manual) Nucleated RBC % Seg Neutrophils # Seg Neutrophils # Man Lymphocytes # (Manual) Basophils # (Manual) PT INR POC ABG pH ABG pH POC ABG pCO2 POC ABG pO2 ABG pO2 ABG HCO3 ABG Base Excess VBG pH Sodium 134 L Potassium Chloride 97.2 L Carbon Dioxide BUN 49 H Creatinine 0.7 L Glucose 144 H POC Glucose 149 H Lactic Acid Calcium 7.7 L Phosphorus Magnesium Total Bilirubin Direct Bilirubin AST ALT Alkaline Phosphatase Ammonia Lactate Dehydrogenase Total Creatine Kinase CK-MB (CK-2) CK-MB (CK-2) Rel Index Troponin T NT-Pro-B Natriuret Pep Total Protein Albumin Prealbumin LDL Cholesterol Direct HDL Cholesterol Vancomycin Trough Crossmatch 06/08/19 06/08/19 06/09/19 11:18 17:43 00:04 WBC RBC Hgb Hct MCH RDW Lymph % (Auto) [place] % (Auto) Baso % (Auto) [place] # Baso # Seg Neutrophils % Seg Neuts % (Manual) Lymphocytes % (Manual) Nucleated RBC % Seg Neutrophils # Seg Neutrophils # Man Lymphocytes # (Manual) Basophils # (Manual) PT INR POC ABG pH ABG pH POC ABG pCO2 POC ABG pO2 ABG pO2 ABG HCO3 ABG Base Excess VBG pH Sodium Potassium Chloride Carbon Dioxide BUN Creatinine Glucose POC Glucose 134 H 153 H 161 H Lactic Acid Calcium Phosphorus Magnesium Total Bilirubin Direct Bilirubin AST ALT Alkaline Phosphatase Ammonia Lactate Dehydrogenase Total Creatine Kinase CK-MB (CK-2) CK-MB (CK-2) Rel Index Troponin T NT-Pro-B Natriuret Pep Total Protein Albumin Prealbumin LDL Cholesterol Direct HDL Cholesterol Vancomycin Trough Crossmatch 06/09/19 06/09/19 06/09/19 05:51 08:58 11:53 WBC RBC Hgb Hct MCH RDW Lymph % (Auto) [place] % (Auto) Baso % (Auto) [place] # Baso # Seg Neutrophils % Seg Neuts % (Manual) Lymphocytes % (Manual) Nucleated RBC % Seg Neutrophils # Seg Neutrophils # Man Lymphocytes # (Manual) Basophils # (Manual) PT INR POC ABG pH ABG pH POC ABG pCO2 POC ABG pO2 ABG pO2 ABG HCO3 ABG Base Excess VBG pH Sodium Potassium Chloride 97.1 L Carbon Dioxide BUN 40 H Creatinine 0.6 L Glucose 161 H POC Glucose 183 H 189 H Lactic Acid Calcium 7.9 L Phosphorus Magnesium Total Bilirubin Direct Bilirubin AST ALT Alkaline Phosphatase Ammonia Lactate Dehydrogenase Total Creatine Kinase CK-MB (CK-2) CK-MB (CK-2) Rel Index Troponin T NT-Pro-B Natriuret Pep Total Protein Albumin Prealbumin LDL Cholesterol Direct HDL Cholesterol Vancomycin Trough Crossmatch 06/09/19 06/10/19 06/10/19 17:30 05:00 08:36 WBC RBC Hgb Hct MCH RDW Lymph % (Auto) [place] % (Auto) Baso % (Auto) [place] # Baso # Seg Neutrophils % Seg Neuts % (Manual) Lymphocytes % (Manual) Nucleated RBC % Seg Neutrophils # Seg Neutrophils # Man Lymphocytes # (Manual) Basophils # (Manual) PT INR POC ABG pH ABG pH POC ABG pCO2 POC ABG pO2 ABG pO2 ABG HCO3 ABG Base Excess VBG pH Sodium Potassium Chloride Carbon Dioxide BUN Creatinine Glucose POC Glucose 145 H 173 H 119 H Lactic Acid Calcium Phosphorus Magnesium Total Bilirubin Direct Bilirubin AST ALT Alkaline Phosphatase Ammonia Lactate Dehydrogenase Total Creatine Kinase CK-MB (CK-2) CK-MB (CK-2) Rel Index Troponin T NT-Pro-B Natriuret Pep Total Protein Albumin Prealbumin LDL Cholesterol Direct HDL Cholesterol Vancomycin Trough Crossmatch 06/10/19 06/10/19 06/10/19 09:25 09:25 09:25 WBC 18.9 H RBC 2.61 L Hgb 7.3 L Hct 22.8 L MCH RDW 29.2 H Lymph % (Auto) [place] % (Auto) Baso % (Auto) [place] # Baso # Seg Neutrophils % Seg Neuts % (Manual) Lymphocytes % (Manual) Nucleated RBC % Seg Neutrophils # Seg Neutrophils # Man Lymphocytes # (Manual) Basophils # (Manual) PT INR POC ABG pH ABG pH POC ABG pCO2 POC ABG pO2 ABG pO2 ABG HCO3 ABG Base Excess VBG pH Sodium Potassium Chloride 95.5 L Carbon Dioxide 31 H BUN 38 H Creatinine Glucose 115 H POC Glucose Lactic Acid Calcium 7.8 L Phosphorus Magnesium Total Bilirubin 4.80 H Direct Bilirubin 3.7 H AST 127 H ALT 93 H Alkaline Phosphatase 180 H Ammonia Lactate Dehydrogenase Total Creatine Kinase CK-MB (CK-2) CK-MB (CK-2) Rel Index Troponin T NT-Pro-B Natriuret Pep Total Protein 5.3 L Albumin 1.5 L Prealbumin LDL Cholesterol Direct HDL Cholesterol Vancomycin Trough Crossmatch 06/10/19 06/10/19 06/10/19 11:23 16:38 21:11 WBC RBC Hgb Hct MCH RDW Lymph % (Auto) [place] % (Auto) Baso % (Auto) [place] # Baso # Seg Neutrophils % Seg Neuts % (Manual) Lymphocytes % (Manual) Nucleated RBC % Seg Neutrophils # Seg Neutrophils # Man Lymphocytes # (Manual) Basophils # (Manual) PT INR POC ABG pH ABG pH POC ABG pCO2 POC ABG pO2 ABG pO2 ABG HCO3 ABG Base Excess VBG pH Sodium Potassium Chloride Carbon Dioxide BUN Creatinine Glucose POC Glucose 175 H 164 H 159 H Lactic Acid Calcium Phosphorus Magnesium Total Bilirubin Direct Bilirubin AST ALT Alkaline Phosphatase Ammonia Lactate Dehydrogenase Total Creatine Kinase CK-MB (CK-2) CK-MB (CK-2) Rel Index Troponin T NT-Pro-B Natriuret Pep Total Protein Albumin Prealbumin LDL Cholesterol Direct HDL Cholesterol Vancomycin Trough Crossmatch 06/10/19 06/11/19 06/11/19 23:23 00:22 05:58 WBC RBC Hgb Hct MCH RDW Lymph % (Auto) [place] % (Auto) Baso % (Auto) [place] # Baso # Seg Neutrophils % Seg Neuts % (Manual) Lymphocytes % (Manual) Nucleated RBC % Seg Neutrophils # Seg Neutrophils # Man Lymphocytes # (Manual) Basophils # (Manual) PT INR POC ABG pH ABG pH POC ABG pCO2 POC ABG pO2 ABG pO2 ABG HCO3 ABG Base Excess VBG pH Sodium 135 L Potassium Chloride 95.7 L Carbon Dioxide 33 H BUN 36 H Creatinine 0.7 L Glucose 155 H POC Glucose 188 H Lactic Acid Calcium 7.7 L Phosphorus Magnesium Total Bilirubin 4.10 H Direct Bilirubin AST 89 H ALT 77 H Alkaline Phosphatase 154 H Ammonia Lactate Dehydrogenase Total Creatine Kinase CK-MB (CK-2) CK-MB (CK-2) Rel Index Troponin T NT-Pro-B Natriuret Pep Total Protein 5.3 L Albumin 1.7 L Prealbumin 0.106 L LDL Cholesterol Direct HDL Cholesterol Vancomycin Trough Crossmatch 06/11/19 06/11/19 06/11/19 06:53 11:17 16:21 WBC RBC Hgb Hct MCH RDW Lymph % (Auto) [place] % (Auto) Baso % (Auto) [place] # Baso # Seg Neutrophils % Seg Neuts % (Manual) Lymphocytes % (Manual) Nucleated RBC % Seg Neutrophils # Seg Neutrophils # Man Lymphocytes # (Manual) Basophils # (Manual) PT INR POC ABG pH ABG pH POC ABG pCO2 POC ABG pO2 ABG pO2 ABG HCO3 ABG Base Excess VBG pH Sodium Potassium Chloride Carbon Dioxide BUN Creatinine Glucose POC Glucose 198 H 157 H 190 H Lactic Acid Calcium Phosphorus Magnesium Total Bilirubin Direct Bilirubin AST ALT Alkaline Phosphatase Ammonia Lactate Dehydrogenase Total Creatine Kinase CK-MB (CK-2) CK-MB (CK-2) Rel Index Troponin T NT-Pro-B Natriuret Pep Total Protein Albumin Prealbumin LDL Cholesterol Direct HDL Cholesterol Vancomycin Trough Crossmatch 06/12/19 06/12/19 06/12/19 00:17 05:27 06:27 WBC RBC Hgb Hct MCH RDW Lymph % (Auto) [place] % (Auto) Baso % (Auto) [place] # Baso # Seg Neutrophils % Seg Neuts % (Manual) Lymphocytes % (Manual) Nucleated RBC % Seg Neutrophils # Seg Neutrophils # Man Lymphocytes # (Manual) Basophils # (Manual) PT INR POC ABG pH ABG pH POC ABG pCO2 POC ABG pO2 ABG pO2 ABG HCO3 ABG Base Excess VBG pH Sodium 136 L Potassium Chloride 95.6 L Carbon Dioxide BUN 39 H Creatinine Glucose 144 H POC Glucose 139 H 169 H Lactic Acid Calcium 8.3 L Phosphorus Magnesium Total Bilirubin Direct Bilirubin AST ALT Alkaline Phosphatase Ammonia Lactate Dehydrogenase Total Creatine Kinase CK-MB (CK-2) CK-MB (CK-2) Rel Index Troponin T NT-Pro-B Natriuret Pep Total Protein Albumin Prealbumin LDL Cholesterol Direct HDL Cholesterol Vancomycin Trough Crossmatch 06/12/19 06/13/19 06/13/19 11:52 00:27 06:00 WBC RBC Hgb Hct MCH RDW Lymph % (Auto) Burke % (Auto) Baso % (Auto) Burke # Baso # Seg Neutrophils % Seg Neuts % (Manual) Lymphocytes % (Manual) Nucleated RBC % Seg Neutrophils # Seg Neutrophils # Man Lymphocytes # (Manual) Basophils # (Manual) PT INR POC ABG pH ABG pH POC ABG pCO2 POC ABG pO2 ABG pO2 ABG HCO3 ABG Base Excess VBG pH Sodium Potassium Chloride Carbon Dioxide BUN Creatinine Glucose POC Glucose 146 H 151 H 133 H Lactic Acid Calcium Phosphorus Magnesium Total Bilirubin Direct Bilirubin AST ALT Alkaline Phosphatase Ammonia Lactate Dehydrogenase Total Creatine Kinase CK-MB (CK-2) CK-MB (CK-2) Rel Index Troponin T NT-Pro-B Natriuret Pep Total Protein Albumin Prealbumin LDL Cholesterol Direct HDL Cholesterol Vancomycin Trough Crossmatch 06/13/19 06/13/19 06/13/19 06:11 06:11 06:11 WBC 17.0 H RBC 2.32 L Hgb 6.8 L Hct 20.9 L MCH RDW 29.2 H Lymph % (Auto) Burke % (Auto) Baso % (Auto) Burke # Baso # Seg Neutrophils % Seg Neuts % (Manual) 92.0 H Lymphocytes % (Manual) 2.0 L Nucleated RBC % Seg Neutrophils # Seg Neutrophils # Man 15.6 H Lymphocytes # (Manual) 0.3 L Basophils # (Manual) 0.2 H PT INR POC ABG pH ABG pH POC ABG pCO2 POC ABG pO2 ABG pO2 ABG HCO3 ABG Base Excess VBG pH Sodium 134 L Potassium Chloride 96.1 L Carbon Dioxide BUN 42 H Creatinine Glucose 126 H POC Glucose Lactic Acid Calcium 8.0 L Phosphorus Magnesium Total Bilirubin Direct Bilirubin AST ALT Alkaline Phosphatase Ammonia Lactate Dehydrogenase 214 H Total Creatine Kinase CK-MB (CK-2) CK-MB (CK-2) Rel Index Troponin T NT-Pro-B Natriuret Pep Total Protein Albumin Prealbumin LDL Cholesterol Direct HDL Cholesterol Vancomycin Trough Crossmatch 06/13/19 06/13/19 06/13/19 11:17 11:25 16:57 WBC RBC Hgb Hct MCH RDW Lymph % (Auto) Burke % (Auto) Baso % (Auto) Burke # Baso # Seg Neutrophils % Seg Neuts % (Manual) Lymphocytes % (Manual) Nucleated RBC % Seg Neutrophils # Seg Neutrophils # Man Lymphocytes # (Manual) Basophils # (Manual) PT INR POC ABG pH ABG pH POC ABG pCO2 POC ABG pO2 ABG pO2 ABG HCO3 ABG Base Excess VBG pH Sodium Potassium Chloride Carbon Dioxide BUN Creatinine Glucose POC Glucose 185 H 224 H Lactic Acid Calcium Phosphorus Magnesium Total Bilirubin Direct Bilirubin AST ALT Alkaline Phosphatase Ammonia Lactate Dehydrogenase Total Creatine Kinase CK-MB (CK-2) CK-MB (CK-2) Rel Index Troponin T NT-Pro-B Natriuret Pep Total Protein Albumin Prealbumin LDL Cholesterol Direct HDL Cholesterol Vancomycin Trough Crossmatch See Detail 06/13/19 06/13/19 06/14/19 17:05 17:23 04:45 WBC RBC Hgb 9.2 L Hct 28.9 L D MCH RDW Lymph % (Auto) Burke % (Auto) Baso % (Auto) Burke # Baso # Seg Neutrophils % Seg Neuts % (Manual) Lymphocytes % (Manual) Nucleated RBC % Seg Neutrophils # Seg Neutrophils # Man Lymphocytes # (Manual) Basophils # (Manual) PT INR POC ABG pH 7.320 L ABG pH 7.460 H POC ABG pCO2 53.9 H POC ABG pO2 121 H ABG pO2 107.6 H ABG HCO3 27.2 H ABG Base Excess 3.3 H VBG pH Sodium Potassium Chloride Carbon Dioxide BUN Creatinine Glucose POC Glucose Lactic Acid Calcium Phosphorus Magnesium Total Bilirubin Direct Bilirubin AST ALT Alkaline Phosphatase Ammonia Lactate Dehydrogenase Total Creatine Kinase CK-MB (CK-2) CK-MB (CK-2) Rel Index Troponin T NT-Pro-B Natriuret Pep Total Protein Albumin Prealbumin LDL Cholesterol Direct HDL Cholesterol Vancomycin Trough Crossmatch 06/14/19 06/14/19 06/14/19 05:45 05:45 11:52 WBC 16.7 H RBC 3.45 L Hgb 10.2 L Hct 31.1 L MCH RDW 24.2 H Lymph % (Auto) 7.4 L Burke % (Auto) 8.5 H Baso % (Auto) 2.3 H Burke # 1.4 H Baso # 0.4 H Seg Neutrophils % 80.4 H Seg Neuts % (Manual) Lymphocytes % (Manual) Nucleated RBC % Seg Neutrophils # 13.4 H Seg Neutrophils # Man Lymphocytes # (Manual) Basophils # (Manual) PT INR POC ABG pH ABG pH POC ABG pCO2 POC ABG pO2 ABG pO2 ABG HCO3 ABG Base Excess VBG pH Sodium Potassium Chloride Carbon Dioxide BUN 43 H Creatinine Glucose POC Glucose 140 H Lactic Acid Calcium 7.7 L Phosphorus Magnesium Total Bilirubin Direct Bilirubin AST ALT Alkaline Phosphatase Ammonia Lactate Dehydrogenase Total Creatine Kinase CK-MB (CK-2) CK-MB (CK-2) Rel Index Troponin T NT-Pro-B Natriuret Pep Total Protein Albumin Prealbumin LDL Cholesterol Direct HDL Cholesterol Vancomycin Trough Crossmatch 06/14/19 06/14/19 06/15/19 18:20 23:29 05:10 WBC RBC Hgb Hct MCH RDW Lymph % (Auto) Burke % (Auto) Baso % (Auto) Burke # Baso # Seg Neutrophils % Seg Neuts % (Manual) Lymphocytes % (Manual) Nucleated RBC % Seg Neutrophils # Seg Neutrophils # Man Lymphocytes # (Manual) Basophils # (Manual) PT INR POC ABG pH ABG pH POC ABG pCO2 POC ABG pO2 ABG pO2 ABG HCO3 ABG Base Excess VBG pH Sodium Potassium 3.4 L Chloride Carbon Dioxide BUN 37 H Creatinine Glucose 138 H POC Glucose 150 H 184 H Lactic Acid Calcium 8.0 L Phosphorus Magnesium Total Bilirubin Direct Bilirubin AST ALT Alkaline Phosphatase Ammonia Lactate Dehydrogenase Total Creatine Kinase CK-MB (CK-2) CK-MB (CK-2) Rel Index Troponin T NT-Pro-B Natriuret Pep Total Protein Albumin Prealbumin LDL Cholesterol Direct HDL Cholesterol Vancomycin Trough Crossmatch 06/15/19 06/15/19 05:23 12:34 WBC RBC Hgb Hct MCH RDW Lymph % (Auto) Burke % (Auto) Baso % (Auto) Burke # Baso # Seg Neutrophils % Seg Neuts % (Manual) Lymphocytes % (Manual) Nucleated RBC % Seg Neutrophils # Seg Neutrophils # Man Lymphocytes # (Manual) Basophils # (Manual) PT INR POC ABG pH ABG pH POC ABG pCO2 POC ABG pO2 ABG pO2 ABG HCO3 ABG Base Excess VBG pH Sodium Potassium Chloride Carbon Dioxide BUN Creatinine Glucose POC Glucose 132 H 176 H Lactic Acid Calcium Phosphorus Magnesium Total Bilirubin Direct Bilirubin AST ALT Alkaline Phosphatase Ammonia Lactate Dehydrogenase Total Creatine Kinase CK-MB (CK-2) CK-MB (CK-2) Rel Index Troponin T NT-Pro-B Natriuret Pep Total Protein Albumin Prealbumin LDL Cholesterol Direct HDL Cholesterol Vancomycin Trough Crossmatch
[2019-06-15] MEDS ORDERED: TOTAL PARENTERAL NUTRITION 1,560 ML IV SCH (20:00)
[2019-06-15] MEDS: METOPROLOL TARTRATE 25 MG TAB PO SCH (21:21)
[2019-06-16 05:15] LABS: Alanine Aminotransferase 33 units/L (7-56); Albumin 1.8 g/dL (3.9-5); BUN/Creatinine Ratio 43; Blood Urea Nitrogen 39 mg/dL (9-20); Calcium 7.8 mg/dL (8.4-10.2); Hemolysis Index 0
[2019-06-16] MEDS: IPRATROPIUM/ALBUTEROL SULFATE 3 ML AMPUL.NEB IH SCH ×4 (05:59→23:08)
[2019-06-16] MEDS: INSULIN LISPRO 100 UNIT/ML SUB-Q SCH ×4 (06:06→18:12)
[2019-06-16] MEDS: CEFEPIME/NS 2 GM/100 ML 2 GM/100 ML BAG IV SCH ×2 (06:37→18:12)
[2019-06-16] MEDS: HEPARIN 5,000 UNIT/1 ML VIAL SUB-Q SCH ×3 (06:37→21:40)
[2019-06-16] MEDS: FUROSEMIDE 40 MG TAB PO SCH (06:38)
[2019-06-16] MEDS: BUDESONIDE 0.5 MG/2 ML NEBU IH SCH ×2 (07:48→23:08)
[2019-06-16 08:31] LABS: Albumin 1.8 g/dL (3.9-5); Bilirubin,Direct 2.4 mg/dL (0-0.2)
[2019-06-16] MEDS: METOPROLOL TARTRATE 25 MG TAB PO SCH ×2 (10:01→21:39)
[2019-06-16] MEDS: PANTOPRAZOLE 40 MG INJ IV SCH ×2 (10:02→21:39)
[2019-06-16] MEDS: SODIUM HYPOCHLORITE, DAKIN'S 1/2 STRENGTH (0.25%) 473 ML TOPICAL SOLN TP SCH ×2 (10:12→21:41)
[2019-06-16] MEDS: HYDROmorphone 1 MG/1 ML INJ IV PRN ×4 (10:17→21:47)
--- NOTE | 2019-06-16 12:03 | Progress Note ---
Assessment and Plan - Patient Problems (1) Perforated gastric ulcer Current Visit: Yes Status: Acute Plan to address problem: 63 yo M s/p exploratory laparotomy, omental patch of perforated gastric ulcer POD 12, s/p reclosure of abdominal wall - POD#3. 1. sepsis 2. perforated gastric ulcer 3. severe malnutrition 4. b/l pleural effusions 5. bedbound 6. infected b/l LE wounds with likely chronic limb ischemia 7. cardiomyopathy 8. CHF 9. abdominal dehiscence Arterial duplex - no Plan: 1. Neuro - appears appropriate 2. CV - BP and HR stable. Cardiology on board 3. Resp - encourage pulm toilet 4. GI - advance to soft diet with supplements. Start bowel regimen. Once tolerating soft diet, can d/c TPN Abdominal binder must stay on at all times. Do not place NGT/OGT 5. Endo - Blood glucose monitoring per protocol 6. ID - no new issues. 7. - garcia for strict I/Os. 8. Musc - DVT ppx. Offloading. Dr. Oakes managing LE for debridement vs amputation. Please call with questions. Subjective Date of service: 06/16/19 Patient Reports: Positive: no new complaints, still having pain, tolerating liquids well, flatus, no bowel movement. Negative: nausea, vomiting Objective Vital Signs - 12hr 06/16/19 06/16/19 06/16/19 05:03 08:00 09:22 Temperature 97.4 F L Pulse Rate 114 H Pulse Rate [ 112 H Anterior Throughout] Respiratory 18 Rate Respiratory 18 Rate [Anterior Throughout] Blood Pressure Blood Pressure 124/88 [Right] O2 Sat by Pulse 97 97 Oximetry 06/16/19 10:01 Temperature Pulse Rate 108 H Pulse Rate [ Anterior Throughout] Respiratory Rate Respiratory Rate [Anterior Throughout] Blood Pressure 104/71 Blood Pressure [Right] O2 Sat by Pulse Oximetry - General physical appearance no distress, no pain, other (looks well) - Eyes normal occular movement - Respiratory normal expansion, normal respiratory effort - Abdomen soft, tender (mild), not distended, not guarding, not rigid, surgical scars (less erythema today. No active drainage) - Integumentary no rash, no growths - Psychiatric oriented to time, oriented to person, oriented to place, speech is normal, memory intact - Labs 06/14/19 05:45 06/16/19 04:30 Diabetes panel 06/16/19 06/16/19 Range/Units 04:30 06:31 Sodium 137 (137-145) mmol/L Potassium 4.2 D (3.6-5.0) mmol/L Chloride 101.8 (98-107) mmol/L Carbon Dioxide 27 (22-30) mmol/L BUN 39 H (9-20) mg/dL Creatinine 0.9 (0.8-1.5) mg/dL Glucose 132 H (75-100) mg/dL Calcium 7.8 L (8.4-10.2) mg/dL AST 37 38 (5-40) units/L ALT 33 33 (7-56) units/L Alkaline Phosphatase 130 H 137 H (35-129) units/L Total Protein 6.2 L 5.7 L (6.3-8.2) g/dL Albumin 1.8 L 1.8 L (3.9-5) g/dL Calcium panel 06/16/19 06/16/19 Range/Units 04:30 06:31 Calcium 7.8 L (8.4-10.2) mg/dL Phosphorus 2.60 D (2.5-4.5) mg/dL Albumin 1.8 L 1.8 L (3.9-5) g/dL Pituitary panel 06/16/19 Range/Units 04:30 Sodium 137 (137-145) mmol/L Potassium 4.2 D (3.6-5.0) mmol/L Chloride 101.8 (98-107) mmol/L Carbon Dioxide 27 (22-30) mmol/L BUN 39 H (9-20) mg/dL Creatinine 0.9 (0.8-1.5) mg/dL Glucose 132 H (75-100) mg/dL Calcium 7.8 L (8.4-10.2) mg/dL Adrenal panel 06/16/19 06/16/19 Range/Units 04:30 06:31 Sodium 137 (137-145) mmol/L Potassium 4.2 D (3.6-5.0) mmol/L Chloride 101.8 (98-107) mmol/L Carbon Dioxide 27 (22-30) mmol/L BUN 39 H (9-20) mg/dL Creatinine 0.9 (0.8-1.5) mg/dL Glucose 132 H (75-100) mg/dL Calcium 7.8 L (8.4-10.2) mg/dL Total Bilirubin 3.20 H 3.30 H (0.1-1.2) mg/dL AST 37 38 (5-40) units/L ALT 33 33 (7-56) units/L Alkaline Phosphatase 130 H 137 H (35-129) units/L Total Protein 6.2 L 5.7 L (6.3-8.2) g/dL Albumin 1.8 L 1.8 L (3.9-5) g/dL
--- NOTE | 2019-06-16 12:09 | Progress Note ---
Assessment and Plan Cardiac status is stable. He remains tachycardic, which is likely physiologic. Continue metoprolol at current dose for now d/t somewhat labile blood pressures. Continue other cardiac management as well. The patient has been seen in conjunction with Dr. Alatorre, who agrees with the assessment and plan. - Patient Problems (1) Pneumoperitoneum Current Visit: Yes Status: Acute (2) Perforated gastric ulcer Current Visit: Yes Status: Acute (3) Acute respiratory failure Current Visit: Yes Status: Acute (4) Wounds, multiple Current Visit: Yes Status: Chronic (5) Sepsis Current Visit: Yes Status: Acute Qualifiers: Sepsis type: sepsis due to unspecified organism Sepsis acute organ dysfunction status: unspecified Qualified Code(s): A41.9 - Sepsis, unspecified organism (6) Cardiomyopathy Current Visit: Yes Status: Chronic Qualifiers: Cardiomyopathy type: unspecified Qualified Code(s): I42.9 - Cardiomyopathy, unspecified (7) Chronic HFrEF (heart failure with reduced ejection fraction) Current Visit: Yes Status: Chronic (8) HTN (hypertension) Current Visit: Yes Status: Chronic Qualifiers: Hypertension type: essential hypertension Qualified Code(s): I10 - Essential (primary) hypertension (9) NSVT (nonsustained ventricular tachycardia) Current Visit: Yes Status: Acute (10) Nonischemic cardiomyopathy Current Visit: Yes Status: Chronic (11) PAD (peripheral artery disease) Current Visit: Yes Status: Chronic (12) Pulmonary hypertension Current Visit: Yes Status: Chronic (13) Sinus node dysfunction Current Visit: Yes Status: Chronic (14) Pulmonary hypertension Current Visit: No Status: Acute (15) Noncompliance Current Visit: No Status: Chronic Subjective Date of service: 06/16/19 Principal diagnosis: elevated LFTs Interval history: The patient is lying in bed in [employer]. He has no cardiac complaints. No telemetry. Objective Last Vital Signs Temp 97.4 F L 06/16/19 05:03 Pulse 108 H 06/16/19 10:01 Resp 18 06/16/19 08:00 BP 104/71 06/16/19 10:01 Pulse Ox 97 06/16/19 09:22 - Physical Examination General: No Apparent Distress, Other HEENT: Positive: EOMI, Normocephaly, Mucus Membranes Moist Neck: Positive: neck supple, trachea midline, Carotid Upstroke (full) Cardiac: Positive: Regular Rhythm Lungs: Positive: Normal Exam Neuro: Positive: Grossly Intact Abdomen: Positive: Soft, Other (abdominal binder in place) /Rectal: Other (Urine dark yellow) Skin: Positive: Other (abdominal surgical wounds, multiple wounds on both lower extremities with areas of ischemic ulceration.) Musculoskeletal: Normal Range of Motion Extremities: Present: lower extr. pulses (LLE difficult to palpate d/t wound dressing and ischemic ulceration), Other (LLE - pulse difficult to palpate d/t wounds ) - Labs and Meds Cardiac Enzymes 06/16/19 06/16/19 Range/Units 04:30 06:31 AST 37 38 (5-40) units/L Comprehensive Metabolic Panel 06/16/19 06/16/19 Range/Units 04:30 06:31 Sodium 137 (137-145) mmol/L Potassium 4.2 D (3.6-5.0) mmol/L Chloride 101.8 (98-107) mmol/L Carbon Dioxide 27 (22-30) mmol/L BUN 39 H (9-20) mg/dL Creatinine 0.9 (0.8-1.5) mg/dL Glucose 132 H (75-100) mg/dL Calcium 7.8 L (8.4-10.2) mg/dL Direct Bilirubin 2.4 H (0-0.2) mg/dL Indirect Bilirubin 0.9 mg/dL AST 37 38 (5-40) units/L ALT 33 33 (7-56) units/L Alkaline Phosphatase 130 H 137 H (35-129) units/L Total Protein 6.2 L 5.7 L (6.3-8.2) g/dL Albumin 1.8 L 1.8 L (3.9-5) g/dL - Imaging and Cardiology EKG: image reviewed Echo: report reviewed (02/28/19 showed EF of 10-15%, dilation of all chambers, moderate AR, moderate to severe TR and RV hypokinesis. ) Cardiac cath: report reviewed (04/2017 showed patent coronaries, EF 10-15%. ) - EKG Sinus rhythms and dysrhythmias: sinus rhythm Chamber hypertrophy or enlargement: left ventricular hypertro Repolarization changes or abnormalities: repolarization abn secondary to ventricular hypertrophy Myocardial infarction: septal GA (old age or ind
--- NOTE | 2019-06-16 12:51 | Progress Note ---
Assessment and Plan Assessment and plan: --Perforated gastric ulcer. s/p exploratory laparotomy, omental patch of perforated gastric ulcer by Dr. Sims, Continue postoperative care cont empiric abx, on TPN, clear liquids advance to full liquids today Patient tolerating --Hypokalemia; replenish with IV KCl, monitor electrolytes --Acute hypoxic respiratory failure; intubation and s/p extubation --Sepsis with bilateral lower extremity cellulitis/infected ulcer /perforated gastric ulcer Continue current antibiotics per ID, supportive care --bilateral lower extremity cellulitis/infected ulcer - from PVD s/p bilateral I and D done 06/05 s/p surgical debridement on 06/13/2019 Continue wound care --Moderate b/l pleural effusion Anti-failure medications --Chronic systolic CHF; Continue current cardiac medications cardiology following --Severe protein calorie malnutrition nutrition consult, may need TPN --CKD stage III, resolved Creatinine within normal limits --Jaundice Elevated bilirubin, Total Bili of 7.7 -4.1 GI evaluated and signed off --Severe metabolic acidosis likely due to perforated bowel bicarbonate as needed --Acute respiratory failure following surgery CC following, cont nebs, Extubated 06/05 --DVT Prophylaxis: Heparin Continue wound care Follow consults recommendations Monitor closely and adjust management as needed Plan of care reviewed with the patient and his nurse Disposition per surgery when medically stable History Interval history: Patient seen and examined medical records reviewed Patient complains of pain in mild distress Complains of generalized weakness, has mild itching on the skin Vital signs noted Hospitalist Physical - Constitutional Vitals: Temp Pulse Resp BP Pulse Ox 97.4 F L 108 H 18 104/71 97 06/16/19 05:03 06/16/19 10:01 06/16/19 08:00 06/16/19 10:01 06/16/19 09:22 General appearance: Present: no acute distress, well-nourished - EENT Eyes: Present: PERRL, EOM intact - Neck Neck: Present: supple, normal ROM - Respiratory Respiratory effort: normal Respiratory: bilateral: diminished, negative: rales, rhonchi, wheezing - Cardiovascular Rhythm: regular Heart Sounds: Present: S1 & S2 - Extremities Extremities: no ischemia, No edema, abnormal (Wound dressing in place) - Abdominal General gastrointestinal: soft, non-tender, non-distended, normal bowel sounds - Integumentary Integumentary: Present: clear, warm - Psychiatric Psychiatric: appropriate mood/affect, cooperative - Neurologic Neurologic: moves all extremities Results - Labs CBC & Chem 7: 06/14/19 05:45 06/16/19 04:30 Labs: Laboratory Last Values WBC 16.7 K/mm3 (4.5-11.0) H 06/14/19 05:45 RBC 3.45 M/mm3 (3.65-5.03) L 06/14/19 05:45 Hgb 10.2 gm/dl (11.8-15.2) L 06/14/19 05:45 Hct 31.1 % (35.5-45.6) L 06/14/19 05:45 MCV 90 fl (84-94) 06/14/19 05:45 MCH 30 pg (28-32) 06/14/19 05:45 MCHC 33 % (32-34) 06/14/19 05:45 RDW 24.2 % (13.2-15.2) H 06/14/19 05:45 Plt Count 355 K/mm3 (140-440) 06/14/19 05:45 Lymph % (Auto) 7.4 % (13.4-35.0) L 06/14/19 05:45 [place] % (Auto) 8.5 % (0.0-7.3) H 06/14/19 05:45 Eos % (Auto) 1.4 % (0.0-4.3) 06/14/19 05:45 Baso % (Auto) 2.3 % (0.0-1.8) H 06/14/19 05:45 Lymph # 1.2 K/mm3 (1.2-5.4) 06/14/19 05:45 [place] # 1.4 K/mm3 (0.0-0.8) H 06/14/19 05:45 Eos # 0.2 K/mm3 (0.0-0.4) 06/14/19 05:45 Baso # 0.4 K/mm3 (0.0-0.1) H 06/14/19 05:45 Add Manual Diff Complete 06/13/19 06:11 Total Counted 100 06/13/19 06:11 Seg Neutrophils % 80.4 % (40.0-70.0) H 06/14/19 05:45 Seg Neuts % (Manual) 92.0 % (40.0-70.0) H 06/13/19 06:11 Band Neutrophils % 0 % 06/13/19 06:11 Lymphocytes % (Manual) 2.0 % (13.4-35.0) L 06/13/19 06:11 Reactive Lymphs % (Man) 0 % 06/13/19 06:11 Monocytes % (Manual) 4.0 % (0.0-7.3) 06/13/19 06:11 Eosinophils % (Manual) 1.0 % (0.0-4.3) 06/13/19 06:11 Basophils % (Manual) 1.0 % (0.0-1.8) 06/13/19 06:11 Metamyelocytes % 0 % 06/13/19 06:11 Myelocytes % 0 % 06/13/19 06:11 Promyelocytes % 0 % 06/13/19 06:11 Blast Cells % 0 % 06/13/19 06:11 Nucleated RBC % Not Reportable 06/13/19 06:11 Seg Neutrophils # 13.4 K/mm3 (1.8-7.7) H 06/14/19 05:45 Seg Neutrophils # Man 15.6 K/mm3 (1.8-7.7) H 06/13/19 06:11 Band Neutrophils # 0.0 K/mm3 06/13/19 06:11 Lymphocytes # (Manual) 0.3 K/mm3 (1.2-5.4) L 06/13/19 06:11 Abs React Lymphs (Man) 0.0 K/mm3 06/13/19 06:11 Monocytes # (Manual) 0.7 K/mm3 (0.0-0.8) 06/13/19 06:11 Eosinophils # (Manual) 0.2 K/mm3 (0.0-0.4) 06/13/19 06:11 Basophils # (Manual) 0.2 K/mm3 (0.0-0.1) H 06/13/19 06:11 Metamyelocytes # 0.0 K/mm3 06/13/19 06:11 Myelocytes # 0.0 K/mm3 06/13/19 06:11 Promyelocytes # 0.0 K/mm3 06/13/19 06:11 Blast Cells # 0.0 K/mm3 06/13/19 06:11 WBC Morphology Not Reportable 06/13/19 06:11 Hypersegmented Neuts Not Reportable 06/13/19 06:11 Hyposegmented Neuts Not Reportable 06/13/19 06:11 Hypogranular Neuts Not Reportable 06/13/19 06:11 Smudge Cells Not Reportable 06/13/19 06:11 Toxic Granulation Not Reportable 06/13/19 06:11 Toxic Vacuolation Not Reportable 06/13/19 06:11 Dohle Bodies Not Reportable 06/13/19 06:11 Pelger-Huet Anomaly Not Reportable 06/13/19 06:11 Romero Rods Not Reportable 06/13/19 06:11 Platelet Estimate Consistent w auto 06/13/19 06:11 Clumped Platelets Not Reportable 06/13/19 06:11 Plt Clumps, EDTA Not Reportable 06/13/19 06:11 Large Platelets Not Reportable 06/13/19 06:11 Giant Platelets Not Reportable 06/13/19 06:11 Platelet Satelliting Not Reportable 06/13/19 06:11 Plt Morphology Comment Not Reportable 06/13/19 06:11 RBC Morphology Not Reportable 06/13/19 06:11 Dimorphic RBCs Not Reportable 06/13/19 06:11 Polychromasia Not Reportable 06/13/19 06:11 Hypochromasia 2+ 06/13/19 06:11 Poikilocytosis Not Reportable 06/13/19 06:11 Anisocytosis 1+ 06/13/19 06:11 Microcytosis Not Reportable 06/13/19 06:11 Macrocytosis Not Reportable 06/13/19 06:11 Spherocytes Not Reportable 06/13/19 06:11 Pappenheimer Bodies Not Reportable 06/13/19 06:11 Sickle Cells Not Reportable 06/13/19 06:11 Target Cells 1+ 06/13/19 06:11 Tear Drop Cells Not Reportable 06/13/19 06:11 Ovalocytes Not Reportable 06/13/19 06:11 Helmet Cells Not Reportable 06/13/19 06:11 [place] Bodies Not Reportable 06/13/19 06:11 [place] Rings Not Reportable 06/13/19 06:11 [place] Cells Not Reportable 06/13/19 06:11 Bite Cells Not Reportable 06/13/19 06:11 Crenated Cell Not Reportable 06/13/19 06:11 Elliptocytes Not Reportable 06/13/19 06:11 Acanthocytes (Spur) Not Reportable 06/13/19 06:11 Rouleaux Not Reportable 06/13/19 06:11 Hemoglobin C Crystals Not Reportable 06/13/19 06:11 Schistocytes Not Reportable 06/13/19 06:11 Malaria parasites Not Reportable 06/13/19 06:11 Bunny Bodies Not Reportable 06/13/19 06:11 Hem Pathologist Commnt No 06/13/19 06:11 PT 17.9 Sec. (12.2-14.9) H 06/02/19 07:15 INR 1.50 (0.87-1.13) H 06/02/19 07:15 APTT 33.2 Sec. (24.2-36.6) 06/02/19 07:15 POC ABG pH 7.320 (7.35-7.45) L 06/13/19 17:23 ABG pH 7.460 pH Units (7.350-7.450) H 06/14/19 04:45 POC ABG pCO2 53.9 (35-45) H 06/13/19 17:23 ABG pCO2 39.1 mm Hg 06/14/19 04:45 POC ABG pO2 121 (80-105) H 06/13/19 17:23 ABG pO2 107.6 mm Hg (80.0-90.0) H 06/14/19 04:45 POC ABG HCO3 27.8 (22-26 mml/L) 06/13/19 17:23 ABG HCO3 27.2 mmol/L (20.0-26.0) H 06/14/19 04:45 POC ABG Total CO2 29 (23-27mmol/L) 06/13/19 17:23 POC ABG O2 Sat 98 06/13/19 17:23 ABG O2 Saturation 98.0 % (95.0-99.0) 06/14/19 04:45 ABG O2 Content 21.2 (0.0-44) 06/14/19 04:45 POC ABG Base Excess 2 ((-2) - (+3)mmol/L) 06/13/19 17:23 ABG Base Excess 3.3 mmol/L (-2.0-3.0) H 06/14/19 04:45 ABG Hemoglobin 15.7 gm/dl (14.0-18.0) 06/14/19 04:45 ABG Carboxyhemoglobin 2.0 % (0.0-5.0) 06/14/19 04:45 ABG Methemoglobin 0.6 % (0.0-1.5) 06/14/19 04:45 VBG pH 7.310 (7.320-7.420) L 06/02/19 07:15 Oxyhemoglobin 95.5 % (95.0-99.0) 06/14/19 04:45 FiO2 30 % 06/14/19 04:45 Sodium 137 mmol/L (137-145) 06/16/19 04:30 Potassium 4.2 mmol/L (3.6-5.0) D 06/16/19 04:30 Chloride 101.8 mmol/L (98-107) 06/16/19 04:30 Carbon Dioxide 27 mmol/L (22-30) 06/16/19 04:30 Anion Gap 12 mmol/L 06/16/19 04:30 BUN 39 mg/dL (9-20) H 06/16/19 04:30 Creatinine 0.9 mg/dL (0.8-1.5) 06/16/19 04:30 Estimated GFR > 60 ml/min 06/16/19 04:30 BUN/Creatinine Ratio 43 % 06/16/19 04:30 Glucose 132 mg/dL (75-100) H 06/16/19 04:30 POC Glucose 158 (70-105) H 06/16/19 11:59 Lactic Acid 1.10 mmol/L (0.7-2.0) 06/02/19 09:17 Calcium 7.8 mg/dL (8.4-10.2) L 06/16/19 04:30 Phosphorus 2.60 mg/dL (2.5-4.5) D 06/16/19 04:30 Magnesium 1.90 mg/dL (1.7-2.3) 06/16/19 04:30 Total Bilirubin 3.30 mg/dL (0.1-1.2) H 06/16/19 06:31 Direct Bilirubin 2.4 mg/dL (0-0.2) H 06/16/19 06:31 Indirect Bilirubin 0.9 mg/dL 06/16/19 06:31 AST 38 units/L (5-40) 06/16/19 06:31 ALT 33 units/L (7-56) 06/16/19 06:31 Alkaline Phosphatase 137 units/L (35-129) H 06/16/19 06:31 Ammonia 16.0 umol/L (25-60) L 06/02/19 07:15 Lactate Dehydrogenase 214 units/L (91-180) H 06/13/19 06:11 Total Creatine Kinase 53 units/L (55-170) L 06/02/19 07:15 CK-MB (CK-2) 5.1 ng/mL (0.0-4.0) H 06/02/19 07:15 CK-MB (CK-2) Rel Index 9.6 (0-4) H 06/02/19 07:15 Troponin T 0.065 ng/mL (0.00-0.029) H 06/02/19 07:15 NT-Pro-B Natriuret Pep > 80782 pg/mL (0-900) H 06/02/19 07:15 Total Protein 5.7 g/dL (6.3-8.2) L 06/16/19 06:31 Albumin 1.8 g/dL (3.9-5) L 06/16/19 06:31 Albumin/Globulin Ratio 0.5 % 06/16/19 06:31 Prealbumin 0.106 g/L (0.200-0.400) L 06/11/19 05:58 Triglycerides 78 mg/dL (2-149) 06/11/19 05:58 Cholesterol 73 mg/dL (50-199) 06/02/19 07:15 LDL Cholesterol Direct 31 mg/dL (50-130) L 06/02/19 07:15 HDL Cholesterol 8 mg/dL (40-59) L 06/02/19 07:15 Cholesterol/HDL Ratio 9.12 % 06/02/19 07:15 Lipase 56 units/L (13-60) 06/02/19 07:15 Urine Color [place] (Yellow) 06/02/19 10:37 Urine Turbidity Clear (Clear) 06/02/19 10:37 Urine pH 5.0 (5.0-7.0) 06/02/19 10:37 Ur Specific [place] 1.019 (1.003-1.030) 06/02/19 10:37 Urine Protein <15 mg/dl mg/dL (Negative) 06/02/19 10:37 Urine Glucose (UA) 50 mg/dL (Negative) 06/02/19 10:37 Urine Ketones Neg mg/dL (Negative) 06/02/19 10:37 Urine Blood Neg (Negative) 06/02/19 10:37 Urine Nitrite Neg (Negative) 06/02/19 10:37 Urine Bilirubin Neg (Negative) 06/02/19 10:37 Urine Urobilinogen 4.0 mg/dL (<2.0) 06/02/19 10:37 Ur Leukocyte Esterase Neg (Negative) 06/02/19 10:37 Urine WBC (Auto) 2.0 /HPF (0.0-6.0) 06/02/19 10:37 Urine RBC (Auto) 2.0 /HPF (0.0-6.0) 06/02/19 10:37 Urine Bacteria (Auto) 1+ /HPF (Negative) 06/02/19 10:37 Vancomycin Trough 11.6 ug/mL (5.0-20.0) 06/09/19 08:58 Blood Type A POSITIVE 06/13/19 11:17 Antibody Screen Negative 06/13/19 11:17 Crossmatch See Detail 06/13/19 11:17 Active Medications - Current Medications Current Medications: Generic Name Dose Route Start Last Admin Trade Name Freq PRN Reason Stop Dose Admin Albuterol 2.5 mg 06/02/19 11:28 06/13/19 15:45 Proventil IH 2.5 mg Q4H PRN Administration Shortness Of Breath Albuterol/Ipratropium 1 ampul 06/16/19 14:00 Duoneb *Not For Prn Use* IH TIDRT ROSE Benzonatate 100 mg 06/13/19 14:54 Tessalon Perles PO Q8HR PRN Cough Budesonide 0.5 mg 06/02/19 20:00 06/16/19 07:48 Pulmicort IH 0.5 mg Q12HRT ROSE Administration Furosemide 40 mg 06/12/19 06:00 06/16/19 06:38 Lasix PO 40 mg DAILY@0600 ROSE Administration Guaifenesin 200 mg 06/13/19 14:54 Robitussin PO Q4H PRN Cough Heparin Sodium (Porcine) 5,000 unit 06/09/19 22:00 06/16/19 06:37 Heparin SUB-Q 5,000 unit Q8HR ROSE Administration Hydromorphone HCl 0.25 mg 06/05/19 10:55 06/16/19 12:49 Dilaudid IV 0.25 mg Q3H PRN Administration Pain , Severe (7-10) Cefepime HCl 2 gm in 100 mls @ 200 mls/hr 06/10/19 18:00 06/16/19 06:37 Cefepime/Ns 2 Gm/100 Ml IV 06/17/19 18:29 200 mls/hr Q12H ROSE Administration Protocol Amino Acids/Electrolytes/Dextrose 1,560 mls @ 65 mls/hr 06/15/19 20:00 06/15/19 21:07 Tpn Adult IV 06/16/19 19:59 65 mls/hr DAILY@1999 [facility] Administration Protocol Amino Acids/Electrolytes/Dextrose 1,560 mls @ 65 mls/hr 06/16/19 20:00 Tpn Adult IV 06/17/19 19:59 DAILY@1999 [facility] Protocol Insulin Human Lispro 0 unit 06/08/19 06:00 06/16/19 06:07 Humalog SUB-Q Not Given Q6HR [facility] Protocol Metoprolol Tartrate 12.5 mg 06/15/19 22:00 06/16/19 10:01 Metoprolol PO 12.5 mg BID ROSE Administration Ondansetron HCl 4 mg 06/11/19 15:26 06/11/19 19:34 Zofran IV 4 mg Q6H PRN Administration Nausea And Vomiting Pantoprazole Sodium 40 mg 06/04/19 10:00 06/16/19 10:02 Protonix IV 40 mg BID ROSE Administration Sodium Hypochlorite 1 applic 06/05/19 22:00 06/16/19 10:12 Dakin's Half Strength TP 1 applicatio BID ROSE Administration Nutrition/Malnutrition Assess - Dietary Evaluation Nutrition/Malnutrition Findings: Nutrition Notes Start: 06/03/19 1 1:22 Freq: Status: Active Protocol: Document 06/16/19 10:29 LP (Rec: 06/16/19 10:43 LP [id number]) Nutrition Notes Initial or Follow up Reassessment Current Diagnosis CKD(stage I-IV),Decubitus( Pressure Ulcer),Sepsis, Hypertension,Heart Failure Other Pertinent Diagnosis Perforated viscus S/P exp lap Current Diet CPN at 65 ml/hr Labs/Tests Reviewed Pertinent Medications Reviewed Height 5 ft 7 in Weight 61.1 kg [place] Body Weight (kg) 67.27 BMI 21.1 Subjective/Other Information CPN day 13. Pt states eating ok and drinking 100% of Ensure shakes. Pt is not meeting at least 60% of needs consistently yet and will continue TPN at least for 1 more day. Percent of energy/protein needs met: 99%/100% with TPN, ONS, and Full Liquids Burn Absent Trauma Absent GI Symptoms None Current % PO Negligible Minimum of two criteria Yes Body Fat Depletion Mild depletion (non-severe) Muscle Mass Mild Depletion (non-severe) Fluid Accumulation Mild (non-severe) Reduced Practice Consultant Strength Measurably Reduced (severe) #1 Nutrition Diagnosis Malnutrition Diagnosis Progress(for reassessment Continues documentation) Is patient on ventilator? No Is Patient Ambulatory and/or Out of Bed No REE-([facility]-confined to bed) [phone] Calculation Used for Recommendations [facility] Additional Notes Protein: 73-92g (1.2-1.5g/kg) Fluid: 1 ml/kcal or per MD Nutrition Intervention Change Diet Order: Continue CPN and full Liquid diet Nutrition Support: CPN at 65 ml/hr: 94 mEq K, 25 mmol MVI Osmolality: 2063 Kcal 1,570 Protein (gm) 95 Carbohydrates (gm) 350 Fat (gm) 0 Fluid (mL) 1,560 Fiber (gm) 0 Add Supplement/Snack (indicate name/kcal Ensure Enlive TID /protein ) Provides kCal: 1,050 Provides Protein (gm) 60 Goal #1 Meet at least 60% of kcal need for oral diet and supplements before D/C of TPN Anticipated Discharge Needs: Unable to determine at this time Follow-Up By: 06/17/19 Additional Comments Labs in AM: BMP, Mg, Phos Follow for possible TPN D/C
--- NOTE | 2019-06-16 14:36 | Progress Note ---
Assessment and Plan Ab Binder on at all times. Very important. Continue COPD regimen WIll continue to follow along with you. Prognosis remains guarded to poor. Subjective Date of service: 06/16/19 Principal diagnosis: elevated LFTs Interval history: No acute events. Successful transition out of the ICU. STable. Remains on room air. Objective Vital Signs - 12hr 06/16/19 06/16/19 06/16/19 05:03 08:00 09:22 Temperature 97.4 F L Pulse Rate 114 H Pulse Rate [ 112 H Anterior Throughout] Respiratory 18 Rate Respiratory 18 Rate [Anterior Throughout] Blood Pressure Blood Pressure 124/88 [Right] O2 Sat by Pulse 97 97 Oximetry 06/16/19 06/16/19 10:01 13:55 Temperature Pulse Rate 108 H Pulse Rate [ 108 H Anterior Throughout] Respiratory Rate Respiratory 18 Rate [Anterior Throughout] Blood Pressure 104/71 Blood Pressure [Right] O2 Sat by Pulse Oximetry Constitutional: no acute distress, alert Eyes: non-icteric ENT: oropharynx moist Neck: supple Effort: normal Ascultation: Bilateral: clear, other (coarse BS bilaterally) Cardiovascular: regular rate and rhythm (no mrg) Gastrointestinal: absent bowel sounds, non-tender Integumentary: other (necrotic ulcers lower extremities) Extremities: no cyanosis, edema (1+ generalized edema) Neurologic: normal mental status, non-focal exam Psychiatric: mood appropriate, affect normal CBC and BMP: 06/14/19 05:45 06/16/19 04:30 ABG, PT/INR, D-dimer: ABG POC ABG pH 7.320 (7.35-7.45) L 06/13/19 17:23 ABG pH 7.460 pH Units (7.350-7.450) H 06/14/19 04:45 POC ABG pCO2 53.9 (35-45) H 06/13/19 17:23 ABG pCO2 39.1 mm Hg 06/14/19 04:45 POC ABG pO2 121 (80-105) H 06/13/19 17:23 ABG pO2 107.6 mm Hg (80.0-90.0) H 06/14/19 04:45 POC ABG HCO3 27.8 (22-26 mml/L) 06/13/19 17:23 POC ABG Total CO2 29 (23-27mmol/L) 06/13/19 17:23 POC ABG O2 Sat 98 06/13/19 17:23 ABG O2 Saturation 98.0 % (95.0-99.0) 06/14/19 04:45 PT/INR, D-dimer PT 17.9 Sec. (12.2-14.9) H 06/02/19 07:15 INR 1.50 (0.87-1.13) H 06/02/19 07:15 Abnormal lab findings: Abnormal Labs 06/02/19 06/02/19 06/02/19 07:15 07:15 07:15 WBC 21.0 H RBC 5.17 H Hgb Hct MCH 27 L RDW 23.8 H Lymph % (Auto) Grand % (Auto) Baso % (Auto) Grand # Baso # Seg Neutrophils % Seg Neuts % (Manual) 97.0 H Lymphocytes % (Manual) 1.0 L Nucleated RBC % 3.0 H Seg Neutrophils # Seg Neutrophils # Man 20.4 H Lymphocytes # (Manual) 0.2 L Basophils # (Manual) PT 17.9 H INR 1.50 H POC ABG pH ABG pH POC ABG pCO2 POC ABG pO2 ABG pO2 ABG HCO3 ABG Base Excess VBG pH Sodium 130 L Potassium Chloride 97.1 L Carbon Dioxide 16 L BUN 47 H Creatinine Glucose 139 H POC Glucose Lactic Acid Calcium Phosphorus Magnesium Total Bilirubin 6.40 H Direct Bilirubin 4.5 H AST 50 H ALT Alkaline Phosphatase 179 H Ammonia Lactate Dehydrogenase Total Creatine Kinase 53 L CK-MB (CK-2) 5.1 H CK-MB (CK-2) Rel Index 9.6 H Troponin T NT-Pro-B Natriuret Pep > 93578 H Total Protein 5.8 L Albumin 2.1 L Prealbumin LDL Cholesterol Direct HDL Cholesterol Vancomycin Trough Crossmatch 06/02/19 06/02/19 06/02/19 07:15 07:15 07:15 WBC RBC Hgb Hct MCH RDW Lymph % (Auto) Grand % (Auto) Baso % (Auto) Grand # Baso # Seg Neutrophils % Seg Neuts % (Manual) Lymphocytes % (Manual) Nucleated RBC % Seg Neutrophils # Seg Neutrophils # Man Lymphocytes # (Manual) Basophils # (Manual) PT INR POC ABG pH ABG pH POC ABG pCO2 POC ABG pO2 ABG pO2 ABG HCO3 ABG Base Excess VBG pH 7.310 L Sodium Potassium Chloride Carbon Dioxide BUN Creatinine Glucose POC Glucose Lactic Acid 2.40 H* Calcium Phosphorus Magnesium Total Bilirubin Direct Bilirubin AST ALT Alkaline Phosphatase Ammonia 16.0 L Lactate Dehydrogenase Total Creatine Kinase CK-MB (CK-2) CK-MB (CK-2) Rel Index Troponin T NT-Pro-B Natriuret Pep Total Protein Albumin Prealbumin LDL Cholesterol Direct HDL Cholesterol Vancomycin Trough Crossmatch 06/02/19 06/02/19 06/02/19 07:15 15:33 15:53 WBC RBC Hgb Hct MCH RDW Lymph % (Auto) Grand % (Auto) Baso % (Auto) Grand # Baso # Seg Neutrophils % Seg Neuts % (Manual) Lymphocytes % (Manual) Nucleated RBC % Seg Neutrophils # Seg Neutrophils # Man Lymphocytes # (Manual) Basophils # (Manual) PT INR POC ABG pH 7.229 L ABG pH POC ABG pCO2 49.5 H POC ABG pO2 ABG pO2 ABG HCO3 ABG Base Excess VBG pH Sodium Potassium Chloride Carbon Dioxide BUN Creatinine Glucose POC Glucose 66 L Lactic Acid Calcium Phosphorus Magnesium Total Bilirubin Direct Bilirubin AST ALT Alkaline Phosphatase Ammonia Lactate Dehydrogenase Total Creatine Kinase CK-MB (CK-2) CK-MB (CK-2) Rel Index Troponin T 0.065 H NT-Pro-B Natriuret Pep Total Protein Albumin Prealbumin LDL Cholesterol Direct 31 L HDL Cholesterol 8 L Vancomycin Trough Crossmatch 06/02/19 06/02/19 06/03/19 16:40 17:10 04:06 WBC RBC Hgb Hct MCH RDW Lymph % (Auto) Grand % (Auto) Baso % (Auto) Grand # Baso # Seg Neutrophils % Seg Neuts % (Manual) Lymphocytes % (Manual) Nucleated RBC % Seg Neutrophils # Seg Neutrophils # Man Lymphocytes # (Manual) Basophils # (Manual) PT INR POC ABG pH 7.259 L ABG pH POC ABG pCO2 33.9 L POC ABG pO2 221 H 146 H ABG pO2 ABG HCO3 ABG Base Excess VBG pH Sodium Potassium Chloride Carbon Dioxide BUN Creatinine Glucose POC Glucose 151 H Lactic Acid Calcium Phosphorus Magnesium Total Bilirubin Direct Bilirubin AST ALT Alkaline Phosphatase Ammonia Lactate Dehydrogenase Total Creatine Kinase CK-MB (CK-2) CK-MB (CK-2) Rel Index Troponin T NT-Pro-B Natriuret Pep Total Protein Albumin Prealbumin LDL Cholesterol Direct HDL Cholesterol Vancomycin Trough Crossmatch 06/03/19 06/03/19 06/03/19 04:41 04:41 17:23 WBC 17.5 H RBC Hgb Hct MCH 27 L RDW 25.0 H Lymph % (Auto) Grand % (Auto) Baso % (Auto) Grand # Baso # Seg Neutrophils % Seg Neuts % (Manual) 96.0 H Lymphocytes % (Manual) 0 L Nucleated RBC % 1.0 H Seg Neutrophils # Seg Neutrophils # Man 16.8 H Lymphocytes # (Manual) 0.0 L Basophils # (Manual) PT INR POC ABG pH ABG pH POC ABG pCO2 POC ABG pO2 ABG pO2 ABG HCO3 ABG Base Excess VBG pH Sodium Potassium Chloride Carbon Dioxide 17 L BUN 42 H Creatinine Glucose 59 L POC Glucose 113 H Lactic Acid Calcium Phosphorus Magnesium Total Bilirubin 7.00 H Direct Bilirubin AST ALT Alkaline Phosphatase 153 H Ammonia Lactate Dehydrogenase Total Creatine Kinase CK-MB (CK-2) CK-MB (CK-2) Rel Index Troponin T NT-Pro-B Natriuret Pep Total Protein 5.9 L Albumin 1.7 L Prealbumin LDL Cholesterol Direct HDL Cholesterol Vancomycin Trough Crossmatch 06/03/19 06/04/19 06/04/19 23:37 05:10 05:10 WBC 16.7 H RBC Hgb Hct MCH 27 L RDW 24.5 H Lymph % (Auto) Grand % (Auto) Baso % (Auto) Grand # Baso # Seg Neutrophils % Seg Neuts % (Manual) 94.0 H Lymphocytes % (Manual) 3.0 L Nucleated RBC % Seg Neutrophils # Seg Neutrophils # Man 15.7 H Lymphocytes # (Manual) 0.5 L Basophils # (Manual) PT INR POC ABG pH ABG pH POC ABG pCO2 POC ABG pO2 ABG pO2 ABG HCO3 ABG Base Excess VBG pH Sodium Potassium Chloride Carbon Dioxide BUN 39 H Creatinine Glucose 136 H POC Glucose 126 H Lactic Acid Calcium 8.3 L Phosphorus Magnesium 1.30 L Total Bilirubin 7.70 H Direct Bilirubin AST ALT Alkaline Phosphatase 140 H Ammonia Lactate Dehydrogenase Total Creatine Kinase CK-MB (CK-2) CK-MB (CK-2) Rel Index Troponin T NT-Pro-B Natriuret Pep Total Protein 5.6 L Albumin 1.7 L Prealbumin LDL Cholesterol Direct HDL Cholesterol Vancomycin Trough Crossmatch 06/04/19 06/04/19 06/04/19 05:44 13:50 18:05 WBC RBC Hgb Hct MCH RDW Lymph % (Auto) Grand % (Auto) Baso % (Auto) Grand # Baso # Seg Neutrophils % Seg Neuts % (Manual) Lymphocytes % (Manual) Nucleated RBC % Seg Neutrophils # Seg Neutrophils # Man Lymphocytes # (Manual) Basophils # (Manual) PT INR POC ABG pH ABG pH POC ABG pCO2 POC ABG pO2 ABG pO2 ABG HCO3 ABG Base Excess VBG pH Sodium Potassium Chloride Carbon Dioxide BUN Creatinine Glucose POC Glucose 124 H 137 H 120 H Lactic Acid Calcium Phosphorus Magnesium Total Bilirubin Direct Bilirubin AST ALT Alkaline Phosphatase Ammonia Lactate Dehydrogenase Total Creatine Kinase CK-MB (CK-2) CK-MB (CK-2) Rel Index Troponin T NT-Pro-B Natriuret Pep Total Protein Albumin Prealbumin LDL Cholesterol Direct HDL Cholesterol Vancomycin Trough Crossmatch 06/05/19 06/05/19 06/05/19 00:58 04:20 04:20 WBC 15.0 H RBC Hgb Hct MCH 27 L RDW 25.0 H Lymph % (Auto) Grand % (Auto) Baso % (Auto) Grand # Baso # Seg Neutrophils % Seg Neuts % (Manual) Lymphocytes % (Manual) Nucleated RBC % Seg Neutrophils # Seg Neutrophils # Man Lymphocytes # (Manual) Basophils # (Manual) PT INR POC ABG pH ABG pH POC ABG pCO2 POC ABG pO2 ABG pO2 ABG HCO3 ABG Base Excess VBG pH Sodium Potassium Chloride Carbon Dioxide BUN 52 H Creatinine Glucose 137 H POC Glucose 114 H Lactic Acid Calcium 7.8 L Phosphorus Magnesium Total Bilirubin Direct Bilirubin AST ALT Alkaline Phosphatase Ammonia Lactate Dehydrogenase Total Creatine Kinase CK-MB (CK-2) CK-MB (CK-2) Rel Index Troponin T NT-Pro-B Natriuret Pep Total Protein Albumin Prealbumin LDL Cholesterol Direct HDL Cholesterol Vancomycin Trough Crossmatch 06/05/19 06/05/19 06/05/19 05:39 05:45 09:45 WBC RBC Hgb Hct MCH RDW Lymph % (Auto) Grand % (Auto) Baso % (Auto) Grand # Baso # Seg Neutrophils % Seg Neuts % (Manual) Lymphocytes % (Manual) Nucleated RBC % Seg Neutrophils # Seg Neutrophils # Man Lymphocytes # (Manual) Basophils # (Manual) PT INR POC ABG pH ABG pH POC ABG pCO2 POC ABG pO2 108 H ABG pO2 ABG HCO3 ABG Base Excess VBG pH Sodium Potassium Chloride Carbon Dioxide BUN Creatinine Glucose POC Glucose 111 H Lactic Acid Calcium Phosphorus Magnesium Total Bilirubin Direct Bilirubin AST ALT Alkaline Phosphatase Ammonia Lactate Dehydrogenase Total Creatine Kinase CK-MB (CK-2) CK-MB (CK-2) Rel Index Troponin T NT-Pro-B Natriuret Pep Total Protein Albumin Prealbumin LDL Cholesterol Direct HDL Cholesterol Vancomycin Trough 20.1 H Crossmatch 06/05/19 06/05/19 06/06/19 13:25 18:27 00:01 WBC RBC Hgb Hct MCH RDW Lymph % (Auto) Grand % (Auto) Baso % (Auto) Grand # Baso # Seg Neutrophils % Seg Neuts % (Manual) Lymphocytes % (Manual) Nucleated RBC % Seg Neutrophils # Seg Neutrophils # Man Lymphocytes # (Manual) Basophils # (Manual) PT INR POC ABG pH ABG pH POC ABG pCO2 POC ABG pO2 ABG pO2 ABG HCO3 ABG Base Excess VBG pH Sodium Potassium Chloride Carbon Dioxide BUN Creatinine Glucose POC Glucose 152 H 194 H 153 H Lactic Acid Calcium Phosphorus Magnesium Total Bilirubin Direct Bilirubin AST ALT Alkaline Phosphatase Ammonia Lactate Dehydrogenase Total Creatine Kinase CK-MB (CK-2) CK-MB (CK-2) Rel Index Troponin T NT-Pro-B Natriuret Pep Total Protein Albumin Prealbumin LDL Cholesterol Direct HDL Cholesterol Vancomycin Trough Crossmatch 06/06/19 06/06/19 06/06/19 04:20 05:45 12:32 WBC RBC Hgb Hct MCH RDW Lymph % (Auto) Grand % (Auto) Baso % (Auto) Grand # Baso # Seg Neutrophils % Seg Neuts % (Manual) Lymphocytes % (Manual) Nucleated RBC % Seg Neutrophils # Seg Neutrophils # Man Lymphocytes # (Manual) Basophils # (Manual) PT INR POC ABG pH ABG pH POC ABG pCO2 POC ABG pO2 ABG pO2 ABG HCO3 ABG Base Excess VBG pH Sodium Potassium Chloride Carbon Dioxide BUN 62 H Creatinine Glucose 141 H POC Glucose 161 H 131 H Lactic Acid Calcium 7.7 L Phosphorus 2.40 L Magnesium Total Bilirubin Direct Bilirubin AST ALT Alkaline Phosphatase Ammonia Lactate Dehydrogenase Total Creatine Kinase CK-MB (CK-2) CK-MB (CK-2) Rel Index Troponin T NT-Pro-B Natriuret Pep Total Protein Albumin Prealbumin LDL Cholesterol Direct HDL Cholesterol Vancomycin Trough Crossmatch 06/07/19 06/07/19 06/07/19 02:07 05:36 05:36 WBC 25.3 H RBC Hgb 10.8 L Hct 33.7 L MCH 27 L RDW 26.7 H Lymph % (Auto) Grand % (Auto) Baso % (Auto) Grand # Baso # Seg Neutrophils % Seg Neuts % (Manual) Lymphocytes % (Manual) Nucleated RBC % Seg Neutrophils # Seg Neutrophils # Man Lymphocytes # (Manual) Basophils # (Manual) PT INR POC ABG pH ABG pH POC ABG pCO2 POC ABG pO2 ABG pO2 ABG HCO3 ABG Base Excess VBG pH Sodium 135 L Potassium Chloride 93.6 L Carbon Dioxide BUN 58 H Creatinine Glucose 131 H POC Glucose 165 H Lactic Acid Calcium 8.0 L Phosphorus Magnesium Total Bilirubin Direct Bilirubin AST ALT Alkaline Phosphatase Ammonia Lactate Dehydrogenase Total Creatine Kinase CK-MB (CK-2) CK-MB (CK-2) Rel Index Troponin T NT-Pro-B Natriuret Pep Total Protein Albumin Prealbumin LDL Cholesterol Direct HDL Cholesterol Vancomycin Trough Crossmatch 06/07/19 06/07/19 06/07/19 09:44 18:05 23:51 WBC RBC Hgb Hct MCH RDW Lymph % (Auto) Grand % (Auto) Baso % (Auto) Grand # Baso # Seg Neutrophils % Seg Neuts % (Manual) Lymphocytes % (Manual) Nucleated RBC % Seg Neutrophils # Seg Neutrophils # Man Lymphocytes # (Manual) Basophils # (Manual) PT INR POC ABG pH 7.508 H ABG pH POC ABG pCO2 POC ABG pO2 75 L ABG pO2 ABG HCO3 ABG Base Excess VBG pH Sodium Potassium Chloride Carbon Dioxide BUN Creatinine Glucose POC Glucose 137 H 180 H Lactic Acid Calcium Phosphorus Magnesium Total Bilirubin Direct Bilirubin AST ALT Alkaline Phosphatase Ammonia Lactate Dehydrogenase Total Creatine Kinase CK-MB (CK-2) CK-MB (CK-2) Rel Index Troponin T NT-Pro-B Natriuret Pep Total Protein Albumin Prealbumin LDL Cholesterol Direct HDL Cholesterol Vancomycin Trough Crossmatch 06/08/19 06/08/19 06/08/19 05:07 05:07 06:26 WBC 25.1 H RBC 3.21 L Hgb 8.8 L Hct 27.3 L D MCH RDW 27.7 H Lymph % (Auto) Grand % (Auto) Baso % (Auto) Grand # Baso # Seg Neutrophils % Seg Neuts % (Manual) Lymphocytes % (Manual) Nucleated RBC % Seg Neutrophils # Seg Neutrophils # Man Lymphocytes # (Manual) Basophils # (Manual) PT INR POC ABG pH ABG pH POC ABG pCO2 POC ABG pO2 ABG pO2 ABG HCO3 ABG Base Excess VBG pH Sodium 134 L Potassium Chloride 97.2 L Carbon Dioxide BUN 49 H Creatinine 0.7 L Glucose 144 H POC Glucose 149 H Lactic Acid Calcium 7.7 L Phosphorus Magnesium Total Bilirubin Direct Bilirubin AST ALT Alkaline Phosphatase Ammonia Lactate Dehydrogenase Total Creatine Kinase CK-MB (CK-2) CK-MB (CK-2) Rel Index Troponin T NT-Pro-B Natriuret Pep Total Protein Albumin Prealbumin LDL Cholesterol Direct HDL Cholesterol Vancomycin Trough Crossmatch 06/08/19 06/08/19 06/09/19 11:18 17:43 00:04 WBC RBC Hgb Hct MCH RDW Lymph % (Auto) Grand % (Auto) Baso % (Auto) Grand # Baso # Seg Neutrophils % Seg Neuts % (Manual) Lymphocytes % (Manual) Nucleated RBC % Seg Neutrophils # Seg Neutrophils # Man Lymphocytes # (Manual) Basophils # (Manual) PT INR POC ABG pH ABG pH POC ABG pCO2 POC ABG pO2 ABG pO2 ABG HCO3 ABG Base Excess VBG pH Sodium Potassium Chloride Carbon Dioxide BUN Creatinine Glucose POC Glucose 134 H 153 H 161 H Lactic Acid Calcium Phosphorus Magnesium Total Bilirubin Direct Bilirubin AST ALT Alkaline Phosphatase Ammonia Lactate Dehydrogenase Total Creatine Kinase CK-MB (CK-2) CK-MB (CK-2) Rel Index Troponin T NT-Pro-B Natriuret Pep Total Protein Albumin Prealbumin LDL Cholesterol Direct HDL Cholesterol Vancomycin Trough Crossmatch 06/09/19 06/09/19 06/09/19 05:51 08:58 11:53 WBC RBC Hgb Hct MCH RDW Lymph % (Auto) Grand % (Auto) Baso % (Auto) Grand # Baso # Seg Neutrophils % Seg Neuts % (Manual) Lymphocytes % (Manual) Nucleated RBC % Seg Neutrophils # Seg Neutrophils # Man Lymphocytes # (Manual) Basophils # (Manual) PT INR POC ABG pH ABG pH POC ABG pCO2 POC ABG pO2 ABG pO2 ABG HCO3 ABG Base Excess VBG pH Sodium Potassium Chloride 97.1 L Carbon Dioxide BUN 40 H Creatinine 0.6 L Glucose 161 H POC Glucose 183 H 189 H Lactic Acid Calcium 7.9 L Phosphorus Magnesium Total Bilirubin Direct Bilirubin AST ALT Alkaline Phosphatase Ammonia Lactate Dehydrogenase Total Creatine Kinase CK-MB (CK-2) CK-MB (CK-2) Rel Index Troponin T NT-Pro-B Natriuret Pep Total Protein Albumin Prealbumin LDL Cholesterol Direct HDL Cholesterol Vancomycin Trough Crossmatch 06/09/19 06/10/19 06/10/19 17:30 05:00 08:36 WBC RBC Hgb Hct MCH RDW Lymph % (Auto) Grand % (Auto) Baso % (Auto) Grand # Baso # Seg Neutrophils % Seg Neuts % (Manual) Lymphocytes % (Manual) Nucleated RBC % Seg Neutrophils # Seg Neutrophils # Man Lymphocytes # (Manual) Basophils # (Manual) PT INR POC ABG pH ABG pH POC ABG pCO2 POC ABG pO2 ABG pO2 ABG HCO3 ABG Base Excess VBG pH Sodium Potassium Chloride Carbon Dioxide BUN Creatinine Glucose POC Glucose 145 H 173 H 119 H Lactic Acid Calcium Phosphorus Magnesium Total Bilirubin Direct Bilirubin AST ALT Alkaline Phosphatase Ammonia Lactate Dehydrogenase Total Creatine Kinase CK-MB (CK-2) CK-MB (CK-2) Rel Index Troponin T NT-Pro-B Natriuret Pep Total Protein Albumin Prealbumin LDL Cholesterol Direct HDL Cholesterol Vancomycin Trough Crossmatch 06/10/19 06/10/19 06/10/19 09:25 09:25 09:25 WBC 18.9 H RBC 2.61 L Hgb 7.3 L Hct 22.8 L MCH RDW 29.2 H Lymph % (Auto) Grand % (Auto) Baso % (Auto) Grand # Baso # Seg Neutrophils % Seg Neuts % (Manual) Lymphocytes % (Manual) Nucleated RBC % Seg Neutrophils # Seg Neutrophils # Man Lymphocytes # (Manual) Basophils # (Manual) PT INR POC ABG pH ABG pH POC ABG pCO2 POC ABG pO2 ABG pO2 ABG HCO3 ABG Base Excess VBG pH Sodium Potassium Chloride 95.5 L Carbon Dioxide 31 H BUN 38 H Creatinine Glucose 115 H POC Glucose Lactic Acid Calcium 7.8 L Phosphorus Magnesium Total Bilirubin 4.80 H Direct Bilirubin 3.7 H AST 127 H ALT 93 H Alkaline Phosphatase 180 H Ammonia Lactate Dehydrogenase Total Creatine Kinase CK-MB (CK-2) CK-MB (CK-2) Rel Index Troponin T NT-Pro-B Natriuret Pep Total Protein 5.3 L Albumin 1.5 L Prealbumin LDL Cholesterol Direct HDL Cholesterol Vancomycin Trough Crossmatch 06/10/19 06/10/19 06/10/19 11:23 16:38 21:11 WBC RBC Hgb Hct MCH RDW Lymph % (Auto) Grand % (Auto) Baso % (Auto) Grand # Baso # Seg Neutrophils % Seg Neuts % (Manual) Lymphocytes % (Manual) Nucleated RBC % Seg Neutrophils # Seg Neutrophils # Man Lymphocytes # (Manual) Basophils # (Manual) PT INR POC ABG pH ABG pH POC ABG pCO2 POC ABG pO2 ABG pO2 ABG HCO3 ABG Base Excess VBG pH Sodium Potassium Chloride Carbon Dioxide BUN Creatinine Glucose POC Glucose 175 H 164 H 159 H Lactic Acid Calcium Phosphorus Magnesium Total Bilirubin Direct Bilirubin AST ALT Alkaline Phosphatase Ammonia Lactate Dehydrogenase Total Creatine Kinase CK-MB (CK-2) CK-MB (CK-2) Rel Index Troponin T NT-Pro-B Natriuret Pep Total Protein Albumin Prealbumin LDL Cholesterol Direct HDL Cholesterol Vancomycin Trough Crossmatch 06/10/19 06/11/19 06/11/19 23:23 00:22 05:58 WBC RBC Hgb Hct MCH RDW Lymph % (Auto) Grand % (Auto) Baso % (Auto) Grand # Baso # Seg Neutrophils % Seg Neuts % (Manual) Lymphocytes % (Manual) Nucleated RBC % Seg Neutrophils # Seg Neutrophils # Man Lymphocytes # (Manual) Basophils # (Manual) PT INR POC ABG pH ABG pH POC ABG pCO2 POC ABG pO2 ABG pO2 ABG HCO3 ABG Base Excess VBG pH Sodium 135 L Potassium Chloride 95.7 L Carbon Dioxide 33 H BUN 36 H Creatinine 0.7 L Glucose 155 H POC Glucose 188 H Lactic Acid Calcium 7.7 L Phosphorus Magnesium Total Bilirubin 4.10 H Direct Bilirubin AST 89 H ALT 77 H Alkaline Phosphatase 154 H Ammonia Lactate Dehydrogenase Total Creatine Kinase CK-MB (CK-2) CK-MB (CK-2) Rel Index Troponin T NT-Pro-B Natriuret Pep Total Protein 5.3 L Albumin 1.7 L Prealbumin 0.106 L LDL Cholesterol Direct HDL Cholesterol Vancomycin Trough Crossmatch 06/11/19 06/11/19 06/11/19 06:53 11:17 16:21 WBC RBC Hgb Hct MCH RDW Lymph % (Auto) Grand % (Auto) Baso % (Auto) Grand # Baso # Seg Neutrophils % Seg Neuts % (Manual) Lymphocytes % (Manual) Nucleated RBC % Seg Neutrophils # Seg Neutrophils # Man Lymphocytes # (Manual) Basophils # (Manual) PT INR POC ABG pH ABG pH POC ABG pCO2 POC ABG pO2 ABG pO2 ABG HCO3 ABG Base Excess VBG pH Sodium Potassium Chloride Carbon Dioxide BUN Creatinine Glucose POC Glucose 198 H 157 H 190 H Lactic Acid Calcium Phosphorus Magnesium Total Bilirubin Direct Bilirubin AST ALT Alkaline Phosphatase Ammonia Lactate Dehydrogenase Total Creatine Kinase CK-MB (CK-2) CK-MB (CK-2) Rel Index Troponin T NT-Pro-B Natriuret Pep Total Protein Albumin Prealbumin LDL Cholesterol Direct HDL Cholesterol Vancomycin Trough Crossmatch 06/12/19 06/12/19 06/12/19 00:17 05:27 06:27 WBC RBC Hgb Hct MCH RDW Lymph % (Auto) Grand % (Auto) Baso % (Auto) Grand # Baso # Seg Neutrophils % Seg Neuts % (Manual) Lymphocytes % (Manual) Nucleated RBC % Seg Neutrophils # Seg Neutrophils # Man Lymphocytes # (Manual) Basophils # (Manual) PT INR POC ABG pH ABG pH POC ABG pCO2 POC ABG pO2 ABG pO2 ABG HCO3 ABG Base Excess VBG pH Sodium 136 L Potassium Chloride 95.6 L Carbon Dioxide BUN 39 H Creatinine Glucose 144 H POC Glucose 139 H 169 H Lactic Acid Calcium 8.3 L Phosphorus Magnesium Total Bilirubin Direct Bilirubin AST ALT Alkaline Phosphatase Ammonia Lactate Dehydrogenase Total Creatine Kinase CK-MB (CK-2) CK-MB (CK-2) Rel Index Troponin T NT-Pro-B Natriuret Pep Total Protein Albumin Prealbumin LDL Cholesterol Direct HDL Cholesterol Vancomycin Trough Crossmatch 06/12/19 06/13/19 06/13/19 11:52 00:27 06:00 WBC RBC Hgb Hct MCH RDW Lymph % (Auto) Grand % (Auto) Baso % (Auto) Grand # Baso # Seg Neutrophils % Seg Neuts % (Manual) Lymphocytes % (Manual) Nucleated RBC % Seg Neutrophils # Seg Neutrophils # Man Lymphocytes # (Manual) Basophils # (Manual) PT INR POC ABG pH ABG pH POC ABG pCO2 POC ABG pO2 ABG pO2 ABG HCO3 ABG Base Excess VBG pH Sodium Potassium Chloride Carbon Dioxide BUN Creatinine Glucose POC Glucose 146 H 151 H 133 H Lactic Acid Calcium Phosphorus Magnesium Total Bilirubin Direct Bilirubin AST ALT Alkaline Phosphatase Ammonia Lactate Dehydrogenase Total Creatine Kinase CK-MB (CK-2) CK-MB (CK-2) Rel Index Troponin T NT-Pro-B Natriuret Pep Total Protein Albumin Prealbumin LDL Cholesterol Direct HDL Cholesterol Vancomycin Trough Crossmatch 06/13/19 06/13/19 06/13/19 06:11 06:11 06:11 WBC 17.0 H RBC 2.32 L Hgb 6.8 L Hct 20.9 L MCH RDW 29.2 H Lymph % (Auto) Grand % (Auto) Baso % (Auto) Grand # Baso # Seg Neutrophils % Seg Neuts % (Manual) 92.0 H Lymphocytes % (Manual) 2.0 L Nucleated RBC % Seg Neutrophils # Seg Neutrophils # Man 15.6 H Lymphocytes # (Manual) 0.3 L Basophils # (Manual) 0.2 H PT INR POC ABG pH ABG pH POC ABG pCO2 POC ABG pO2 ABG pO2 ABG HCO3 ABG Base Excess VBG pH Sodium 134 L Potassium Chloride 96.1 L Carbon Dioxide BUN 42 H Creatinine Glucose 126 H POC Glucose Lactic Acid Calcium 8.0 L Phosphorus Magnesium Total Bilirubin Direct Bilirubin AST ALT Alkaline Phosphatase Ammonia Lactate Dehydrogenase 214 H Total Creatine Kinase CK-MB (CK-2) CK-MB (CK-2) Rel Index Troponin T NT-Pro-B Natriuret Pep Total Protein Albumin Prealbumin LDL Cholesterol Direct HDL Cholesterol Vancomycin Trough Crossmatch 06/13/19 06/13/19 06/13/19 11:17 11:25 16:57 WBC RBC Hgb Hct MCH RDW Lymph % (Auto) Grand % (Auto) Baso % (Auto) Grand # Baso # Seg Neutrophils % Seg Neuts % (Manual) Lymphocytes % (Manual) Nucleated RBC % Seg Neutrophils # Seg Neutrophils # Man Lymphocytes # (Manual) Basophils # (Manual) PT INR POC ABG pH ABG pH POC ABG pCO2 POC ABG pO2 ABG pO2 ABG HCO3 ABG Base Excess VBG pH Sodium Potassium Chloride Carbon Dioxide BUN Creatinine Glucose POC Glucose 185 H 224 H Lactic Acid Calcium Phosphorus Magnesium Total Bilirubin Direct Bilirubin AST ALT Alkaline Phosphatase Ammonia Lactate Dehydrogenase Total Creatine Kinase CK-MB (CK-2) CK-MB (CK-2) Rel Index Troponin T NT-Pro-B Natriuret Pep Total Protein Albumin Prealbumin LDL Cholesterol Direct HDL Cholesterol Vancomycin Trough Crossmatch See Detail 06/13/19 06/13/19 06/14/19 17:05 17:23 04:45 WBC RBC Hgb 9.2 L Hct 28.9 L D MCH RDW Lymph % (Auto) Grand % (Auto) Baso % (Auto) Grand # Baso # Seg Neutrophils % Seg Neuts % (Manual) Lymphocytes % (Manual) Nucleated RBC % Seg Neutrophils # Seg Neutrophils # Man Lymphocytes # (Manual) Basophils # (Manual) PT INR POC ABG pH 7.320 L ABG pH 7.460 H POC ABG pCO2 53.9 H POC ABG pO2 121 H ABG pO2 107.6 H ABG HCO3 27.2 H ABG Base Excess 3.3 H VBG pH Sodium Potassium Chloride Carbon Dioxide BUN Creatinine Glucose POC Glucose Lactic Acid Calcium Phosphorus Magnesium Total Bilirubin Direct Bilirubin AST ALT Alkaline Phosphatase Ammonia Lactate Dehydrogenase Total Creatine Kinase CK-MB (CK-2) CK-MB (CK-2) Rel Index Troponin T NT-Pro-B Natriuret Pep Total Protein Albumin Prealbumin LDL Cholesterol Direct HDL Cholesterol Vancomycin Trough Crossmatch 06/14/19 06/14/19 06/14/19 05:45 05:45 11:52 WBC 16.7 H RBC 3.45 L Hgb 10.2 L Hct 31.1 L MCH RDW 24.2 H Lymph % (Auto) 7.4 L Grand % (Auto) 8.5 H Baso % (Auto) 2.3 H Grand # 1.4 H Baso # 0.4 H Seg Neutrophils % 80.4 H Seg Neuts % (Manual) Lymphocytes % (Manual) Nucleated RBC % Seg Neutrophils # 13.4 H Seg Neutrophils # Man Lymphocytes # (Manual) Basophils # (Manual) PT INR POC ABG pH ABG pH POC ABG pCO2 POC ABG pO2 ABG pO2 ABG HCO3 ABG Base Excess VBG pH Sodium Potassium Chloride Carbon Dioxide BUN 43 H Creatinine Glucose POC Glucose 140 H Lactic Acid Calcium 7.7 L Phosphorus Magnesium Total Bilirubin Direct Bilirubin AST ALT Alkaline Phosphatase Ammonia Lactate Dehydrogenase Total Creatine Kinase CK-MB (CK-2) CK-MB (CK-2) Rel Index Troponin T NT-Pro-B Natriuret Pep Total Protein Albumin Prealbumin LDL Cholesterol Direct HDL Cholesterol Vancomycin Trough Crossmatch 06/14/19 06/14/19 06/15/19 18:20 23:29 05:10 WBC RBC Hgb Hct MCH RDW Lymph % (Auto) Grand % (Auto) Baso % (Auto) Grand # Baso # Seg Neutrophils % Seg Neuts % (Manual) Lymphocytes % (Manual) Nucleated RBC % Seg Neutrophils # Seg Neutrophils # Man Lymphocytes # (Manual) Basophils # (Manual) PT INR POC ABG pH ABG pH POC ABG pCO2 POC ABG pO2 ABG pO2 ABG HCO3 ABG Base Excess VBG pH Sodium Potassium 3.4 L Chloride Carbon Dioxide BUN 37 H Creatinine Glucose 138 H POC Glucose 150 H 184 H Lactic Acid Calcium 8.0 L Phosphorus Magnesium Total Bilirubin Direct Bilirubin AST ALT Alkaline Phosphatase Ammonia Lactate Dehydrogenase Total Creatine Kinase CK-MB (CK-2) CK-MB (CK-2) Rel Index Troponin T NT-Pro-B Natriuret Pep Total Protein Albumin Prealbumin LDL Cholesterol Direct HDL Cholesterol Vancomycin Trough Crossmatch 06/15/19 06/15/19 06/15/19 05:23 12:34 21:27 WBC RBC Hgb Hct MCH RDW Lymph % (Auto) Grand % (Auto) Baso % (Auto) Grand # Baso # Seg Neutrophils % Seg Neuts % (Manual) Lymphocytes % (Manual) Nucleated RBC % Seg Neutrophils # Seg Neutrophils # Man Lymphocytes # (Manual) Basophils # (Manual) PT INR POC ABG pH ABG pH POC ABG pCO2 POC ABG pO2 ABG pO2 ABG HCO3 ABG Base Excess VBG pH Sodium Potassium Chloride Carbon Dioxide BUN Creatinine Glucose POC Glucose 132 H 176 H 212 H Lactic Acid Calcium Phosphorus Magnesium Total Bilirubin Direct Bilirubin AST ALT Alkaline Phosphatase Ammonia Lactate Dehydrogenase Total Creatine Kinase CK-MB (CK-2) CK-MB (CK-2) Rel Index Troponin T NT-Pro-B Natriuret Pep Total Protein Albumin Prealbumin LDL Cholesterol Direct HDL Cholesterol Vancomycin Trough Crossmatch 06/16/19 06/16/19 06/16/19 04:30 06:09 06:31 WBC RBC Hgb Hct MCH RDW Lymph % (Auto) Grand % (Auto) Baso % (Auto) Grand # Baso # Seg Neutrophils % Seg Neuts % (Manual) Lymphocytes % (Manual) Nucleated RBC % Seg Neutrophils # Seg Neutrophils # Man Lymphocytes # (Manual) Basophils # (Manual) PT INR POC ABG pH ABG pH POC ABG pCO2 POC ABG pO2 ABG pO2 ABG HCO3 ABG Base Excess VBG pH Sodium Potassium Chloride Carbon Dioxide BUN 39 H Creatinine Glucose 132 H POC Glucose 153 H Lactic Acid Calcium 7.8 L Phosphorus Magnesium Total Bilirubin 3.20 H 3.30 H Direct Bilirubin 2.4 H AST ALT Alkaline Phosphatase 130 H 137 H Ammonia Lactate Dehydrogenase Total Creatine Kinase CK-MB (CK-2) CK-MB (CK-2) Rel Index Troponin T NT-Pro-B Natriuret Pep Total Protein 6.2 L 5.7 L Albumin 1.8 L 1.8 L Prealbumin LDL Cholesterol Direct HDL Cholesterol Vancomycin Trough Crossmatch 06/16/19 11:59 WBC RBC Hgb Hct MCH RDW Lymph % (Auto) Grand % (Auto) Baso % (Auto) Grand # Baso # Seg Neutrophils % Seg Neuts % (Manual) Lymphocytes % (Manual) Nucleated RBC % Seg Neutrophils # Seg Neutrophils # Man Lymphocytes # (Manual) Basophils # (Manual) PT INR POC ABG pH ABG pH POC ABG pCO2 POC ABG pO2 ABG pO2 ABG HCO3 ABG Base Excess VBG pH Sodium Potassium Chloride Carbon Dioxide BUN Creatinine Glucose POC Glucose 158 H Lactic Acid Calcium Phosphorus Magnesium Total Bilirubin Direct Bilirubin AST ALT Alkaline Phosphatase Ammonia Lactate Dehydrogenase Total Creatine Kinase CK-MB (CK-2) CK-MB (CK-2) Rel Index Troponin T NT-Pro-B Natriuret Pep Total Protein Albumin Prealbumin LDL Cholesterol Direct HDL Cholesterol Vancomycin Trough Crossmatch
[2019-06-16] MEDS ORDERED: diphenhydrAMINE 25 MG CAP PO PRN (18:20)
[2019-06-16] MEDS ORDERED: TOTAL PARENTERAL NUTRITION 1,560 ML IV SCH (20:00)
[2019-06-16] MEDS: SENNOSIDES 8.6 MG TAB PO SCH (21:39)
[2019-06-17] MEDS: ALBUTEROL 2.5 MG/3 ML NEBU IH PRN (03:26)
[2019-06-17] MEDS: CEFEPIME/NS 2 GM/100 ML 2 GM/100 ML BAG IV SCH ×2 (05:40→18:24)
[2019-06-17] MEDS: HEPARIN 5,000 UNIT/1 ML VIAL SUB-Q SCH ×3 (05:41→21:41)
[2019-06-17] MEDS: FUROSEMIDE 40 MG TAB PO SCH (05:41)
[2019-06-17] MEDS: INSULIN LISPRO 100 UNIT/ML SUB-Q SCH ×4 (05:57→18:28)
[2019-06-17] MEDS: HYDROmorphone 1 MG/1 ML INJ IV PRN ×4 (07:05→22:54)
--- NOTE | 2019-06-17 08:11 | Progress Note ---
Assessment and Plan - Patient Problems (1) Perforated gastric ulcer Current Visit: Yes Status: Acute Plan to address problem: 63 yo M s/p exploratory laparotomy, omental patch of perforated gastric ulcer POD 15, s/p reclosure of abdominal wall - POD#4. 1. sepsis 2. perforated gastric ulcer 3. severe malnutrition 4. b/l pleural effusions 5. bedbound 6. infected b/l LE wounds with likely chronic limb ischemia 7. cardiomyopathy 8. CHF 9. abdominal dehiscence Arterial duplex - no Plan: 1. Neuro - appears appropriate. Slightly confused. 2. CV - BP and HR stable. Cardiology on board 3. Resp - encourage pulm toilet 4. GI - advanced to soft diet with supplements. Continue bowel regimen. Once tolerating soft diet and calories are adequate, can d/c TPN. Nurse reported dark stool without odor. Pt has been stable. Last two Hgbs have been stable. Observe for now. Abdominal binder must stay on at all times. Do not place NGT/OGT 5. Endo - Blood glucose monitoring per protocol 6. ID - no new issues. 7. - garcia for strict I/Os. 8. Musc - DVT ppx. Offloading. Dr. Oakes managing LE for debridement vs amputation. 9. Disp - once TPN is off, may d/c to SNF/rehab Please call with questions. Subjective Date of service: 06/17/19 Patient Reports: Positive: no new complaints, tolerating liquids well (did not know that he could eat the soft diet last night), bowel movement (large one last night), shortness of breath (earlier this morning) Objective Vital Signs - 12hr 06/16/19 06/16/19 06/16/19 20:53 21:39 23:10 Temperature Pulse Rate 116 H Pulse Rate [ Anterior Throughout] Respiratory Rate Respiratory Rate [Anterior Throughout] Blood Pressure 111/76 Blood Pressure [Right] O2 Sat by Pulse 98 98 Oximetry 06/16/19 06/16/19 06/17/19 23:11 23:42 00:11 Temperature 97.9 F Pulse Rate 89 58 L Pulse Rate [ 70 Anterior Throughout] Respiratory 17 Rate Respiratory 18 Rate [Anterior Throughout] Blood Pressure Blood Pressure 111/87 [Right] O2 Sat by Pulse 97 97 Oximetry 12/09/19 12/09/19 12/09/19 03:28 05:35 05:36 Temperature 98.7 F Pulse Rate 78 111 H Pulse Rate [ 83 Anterior Throughout] Respiratory 18 Rate Respiratory 18 Rate [Anterior Throughout] Blood Pressure 119/85 Blood Pressure [Right] O2 Sat by Pulse 99 99 Oximetry 06/17/19 06/17/19 05:37 07:27 Temperature 96.7 F L 98.0 F Pulse Rate 114 H 105 H Pulse Rate [ Anterior Throughout] Respiratory 18 16 Rate Respiratory Rate [Anterior Throughout] Blood Pressure 127/96 Blood Pressure 119/85 [Right] O2 Sat by Pulse 99 95 Oximetry - General physical appearance no distress, no pain, other (resting comfortably) - Respiratory normal expansion, normal respiratory effort - Abdomen soft, not tender, not distended, not guarding, not rigid, surgical scars (intact. erythema continues to decrease) - Labs 06/14/19 05:45 06/16/19 04:30 Diabetes panel 06/16/19 Range/Units 06:31 AST 38 (5-40) units/L ALT 33 (7-56) units/L Alkaline Phosphatase 137 H (35-129) units/L Total Protein 5.7 L (6.3-8.2) g/dL Albumin 1.8 L (3.9-5) g/dL Calcium panel 06/16/19 Range/Units 06:31 Albumin 1.8 L (3.9-5) g/dL Adrenal panel 06/16/19 Range/Units 06:31 Total Bilirubin 3.30 H (0.1-1.2) mg/dL AST 38 (5-40) units/L ALT 33 (7-56) units/L Alkaline Phosphatase 137 H (35-129) units/L Total Protein 5.7 L (6.3-8.2) g/dL Albumin 1.8 L (3.9-5) g/dL
[2019-06-17] MEDS: IPRATROPIUM/ALBUTEROL SULFATE 3 ML AMPUL.NEB IH SCH ×3 (09:09→20:48)
[2019-06-17] MEDS: BUDESONIDE 0.5 MG/2 ML NEBU IH SCH ×2 (09:09→20:48)
[2019-06-17] MEDS: METOPROLOL TARTRATE 25 MG TAB PO SCH ×2 (09:59→21:43)
[2019-06-17] MEDS: PANTOPRAZOLE 40 MG INJ IV SCH ×2 (09:59→22:02)
[2019-06-17] MEDS: SODIUM HYPOCHLORITE, DAKIN'S 1/2 STRENGTH (0.25%) 473 ML TOPICAL SOLN TP SCH (10:15)
[2019-06-17 11:09] LABS: BUN/Creatinine Ratio 54; Blood Urea Nitrogen 49 mg/dL (9-20); Calcium 7.7 mg/dL (8.4-10.2); Hemolysis Index 0
[2019-06-17] MEDS ORDERED: LIDOCAINE MPF (2%) 20 MG/1 ML VIAL 5 ML ONE (11:40)
[2019-06-17] MEDS ORDERED: fentaNYL 100 MCG/2 ML INJ ONE (11:40)
[2019-06-17] MEDS ORDERED: PROPOFOL 200 MG/20 ML VIAL IV ONE ×2 (11:41→12:20)
[2019-06-17] MEDS ORDERED: MIDAZOLAM 2 MG/2 ML INJ ONE (11:47)
[2019-06-17] MEDS ORDERED: HYDROmorphone 1 MG/1 ML INJ ONE (12:09)
[2019-06-17] MEDS ORDERED: KETAMINE/STERILE WATER 50 MG/ML SYRINGE ONE (12:15)
--- NOTE | 2019-06-17 12:16 | Progress Note ---
Assessment and Plan Pt now on mechanical soft diet. Cont present cardiac management. Resume remote telemetry. The patient has been seen in conjunction with Dr. Jessica who agrees with the assessment and plan of care. - Patient Problems (1) Pneumoperitoneum Current Visit: Yes Status: Acute (2) Sepsis Current Visit: Yes Status: Acute Qualifiers: Sepsis type: sepsis due to unspecified organism Sepsis acute organ dysfunction status: unspecified Qualified Code(s): A41.9 - Sepsis, unspecified organism (3) Chronic HFrEF (heart failure with reduced ejection fraction) Current Visit: Yes Status: Chronic (4) Nonischemic cardiomyopathy Current Visit: Yes Status: Chronic convert IV lopressor (5) Sinus node dysfunction Current Visit: Yes Status: Chronic (6) NSVT (nonsustained ventricular tachycardia) Current Visit: Yes Status: Chronic (7) HTN (hypertension) Current Visit: Yes Status: Chronic Qualifiers: Hypertension type: essential hypertension Qualified Code(s): I10 - Essential (primary) hypertension (8) Pulmonary hypertension Current Visit: Yes Status: Chronic (9) PAD (peripheral artery disease) Current Visit: Yes Status: Chronic (10) Anemia Current Visit: Yes Status: Acute (10) Acute respiratory failure Current Visit: Yes Status: Acute Subjective Date of service: 06/17/19 Principal diagnosis: elevated LFTs Interval history: pt alert, oriented, no current cardiac complaints. no on telemetry. Objective Last Vital Signs Temp 98.0 F 06/17/19 07:27 Pulse 113 H 06/17/19 09:59 Resp 20 06/17/19 09:26 BP 129/85 06/17/19 09:59 Pulse Ox 100 06/17/19 09:09 - Physical Examination General: No Apparent Distress, Other HEENT: Positive: EOMI, Normocephaly, Mucus Membranes Moist Neck: Positive: neck supple, trachea midline, Carotid Upstroke (full) Cardiac: Positive: Regular Rhythm, S1/S2 Lungs: Positive: Decreased Breath Sounds Neuro: Positive: Grossly Intact Abdomen: Positive: Soft, Other (abdominal binder in place) /Rectal: Other (Urine dark yellow) Skin: Positive: Other (abdominal surgical wounds, multiple wounds on both lower extremities with areas of ischemic ulceration.) Musculoskeletal: Normal Range of Motion Extremities: Present: lower extr. pulses (LLE difficult to palpate d/t wound dressing and ischemic ulceration), Other (LLE - pulse difficult to palpate d/t wounds ) - Labs and Meds Comprehensive Metabolic Panel 06/17/19 Range/Units 10:35 Sodium 134 L (137-145) mmol/L Potassium 4.7 (3.6-5.0) mmol/L Chloride 96.2 L (98-107) mmol/L Carbon Dioxide 26 (22-30) mmol/L BUN 49 H (9-20) mg/dL Creatinine 0.9 (0.8-1.5) mg/dL Glucose 119 H (75-100) mg/dL Calcium 7.7 L (8.4-10.2) mg/dL - Imaging and Cardiology EKG: image reviewed Echo: report reviewed (02/28/19 showed EF of 10-15%, dilation of all chambers, moderate AR, moderate to severe TR and RV hypokinesis. ) Cardiac cath: report reviewed (04/2017 showed patent coronaries, EF 10-15%. ) - EKG Sinus rhythms and dysrhythmias: sinus rhythm Chamber hypertrophy or enlargement: left ventricular hypertro Repolarization changes or abnormalities: repolarization abn secondary to ventricular hypertrophy Myocardial infarction: septal OK (old age or ind
--- NOTE | 2019-06-17 12:17 | Progress Note ---
Assessment and Plan 06/17: No new pulmonary recs. Continue current therapy and see below. Ab Binder on at all times. Very important. Continue COPD regimen WIll continue to follow along with you. Prognosis remains guarded to poor. Subjective Date of service: 06/17/19 Principal diagnosis: elevated LFTs Interval history: No acute events. Objective Vital Signs - 12hr 06/17/19 06/17/19 06/17/19 03:28 05:35 05:36 Temperature 98.7 F Pulse Rate 78 111 H Pulse Rate [ 83 Anterior Throughout] Respiratory 18 Rate Respiratory 18 Rate [Anterior Throughout] Blood Pressure 119/85 Blood Pressure [Right] O2 Sat by Pulse 99 99 Oximetry 06/17/19 06/17/19 06/17/19 05:37 07:27 09:09 Temperature 96.7 F L 98.0 F Pulse Rate 114 H 105 H Pulse Rate [ Anterior Throughout] Respiratory 18 16 Rate Respiratory Rate [Anterior Throughout] Blood Pressure 127/96 Blood Pressure 119/85 [Right] O2 Sat by Pulse 99 95 100 Oximetry 06/17/19 06/17/19 09:26 09:59 Temperature Pulse Rate 113 H Pulse Rate [ 112 H Anterior Throughout] Respiratory Rate Respiratory 20 Rate [Anterior Throughout] Blood Pressure 129/85 Blood Pressure [Right] O2 Sat by Pulse Oximetry Constitutional: no acute distress, alert Eyes: non-icteric ENT: oropharynx moist Neck: supple Effort: normal Ascultation: Bilateral: clear, other (coarse BS bilaterally) Cardiovascular: regular rate and rhythm (no mrg) Gastrointestinal: absent bowel sounds, non-tender Integumentary: other (necrotic ulcers lower extremities) Extremities: no cyanosis, edema (1+ generalized edema) Neurologic: normal mental status, non-focal exam Psychiatric: mood appropriate, affect normal CBC and BMP: 06/14/19 05:45 06/17/19 10:35 ABG, PT/INR, D-dimer: ABG POC ABG pH 7.320 (7.35-7.45) L 06/13/19 17:23 ABG pH 7.460 pH Units (7.350-7.450) H 06/14/19 04:45 POC ABG pCO2 53.9 (35-45) H 06/13/19 17:23 ABG pCO2 39.1 mm Hg 06/14/19 04:45 POC ABG pO2 121 (80-105) H 06/13/19 17:23 ABG pO2 107.6 mm Hg (80.0-90.0) H 06/14/19 04:45 POC ABG HCO3 27.8 (22-26 mml/L) 06/13/19 17:23 POC ABG Total CO2 29 (23-27mmol/L) 06/13/19 17:23 POC ABG O2 Sat 98 06/13/19 17:23 ABG O2 Saturation 98.0 % (95.0-99.0) 06/14/19 04:45 PT/INR, D-dimer PT 17.9 Sec. (12.2-14.9) H 06/02/19 07:15 INR 1.50 (0.87-1.13) H 06/02/19 07:15 Abnormal lab findings: Abnormal Labs 06/02/19 06/02/19 06/02/19 07:15 07:15 07:15 WBC 21.0 H RBC 5.17 H Hgb Hct MCH 27 L RDW 23.8 H Lymph % (Auto) [place] % (Auto) Baso % (Auto) [place] # Baso # Seg Neutrophils % Seg Neuts % (Manual) 97.0 H Lymphocytes % (Manual) 1.0 L Nucleated RBC % 3.0 H Seg Neutrophils # Seg Neutrophils # Man 20.4 H Lymphocytes # (Manual) 0.2 L Basophils # (Manual) PT 17.9 H INR 1.50 H POC ABG pH ABG pH POC ABG pCO2 POC ABG pO2 ABG pO2 ABG HCO3 ABG Base Excess VBG pH Sodium 130 L Potassium Chloride 97.1 L Carbon Dioxide 16 L BUN 47 H Creatinine Glucose 139 H POC Glucose Lactic Acid Calcium Phosphorus Magnesium Total Bilirubin 6.40 H Direct Bilirubin 4.5 H AST 50 H ALT Alkaline Phosphatase 179 H Ammonia Lactate Dehydrogenase Total Creatine Kinase 53 L CK-MB (CK-2) 5.1 H CK-MB (CK-2) Rel Index 9.6 H Troponin T NT-Pro-B Natriuret Pep > 43020 H Total Protein 5.8 L Albumin 2.1 L Prealbumin LDL Cholesterol Direct HDL Cholesterol Vancomycin Trough Crossmatch 06/02/19 06/02/19 06/02/19 07:15 07:15 07:15 WBC RBC Hgb Hct MCH RDW Lymph % (Auto) [place] % (Auto) Baso % (Auto) [place] # Baso # Seg Neutrophils % Seg Neuts % (Manual) Lymphocytes % (Manual) Nucleated RBC % Seg Neutrophils # Seg Neutrophils # Man Lymphocytes # (Manual) Basophils # (Manual) PT INR POC ABG pH ABG pH POC ABG pCO2 POC ABG pO2 ABG pO2 ABG HCO3 ABG Base Excess VBG pH 7.310 L Sodium Potassium Chloride Carbon Dioxide BUN Creatinine Glucose POC Glucose Lactic Acid 2.40 H* Calcium Phosphorus Magnesium Total Bilirubin Direct Bilirubin AST ALT Alkaline Phosphatase Ammonia 16.0 L Lactate Dehydrogenase Total Creatine Kinase CK-MB (CK-2) CK-MB (CK-2) Rel Index Troponin T NT-Pro-B Natriuret Pep Total Protein Albumin Prealbumin LDL Cholesterol Direct HDL Cholesterol Vancomycin Trough Crossmatch 06/02/19 06/02/19 06/02/19 07:15 15:33 15:53 WBC RBC Hgb Hct MCH RDW Lymph % (Auto) [place] % (Auto) Baso % (Auto) [place] # Baso # Seg Neutrophils % Seg Neuts % (Manual) Lymphocytes % (Manual) Nucleated RBC % Seg Neutrophils # Seg Neutrophils # Man Lymphocytes # (Manual) Basophils # (Manual) PT INR POC ABG pH 7.229 L ABG pH POC ABG pCO2 49.5 H POC ABG pO2 ABG pO2 ABG HCO3 ABG Base Excess VBG pH Sodium Potassium Chloride Carbon Dioxide BUN Creatinine Glucose POC Glucose 66 L Lactic Acid Calcium Phosphorus Magnesium Total Bilirubin Direct Bilirubin AST ALT Alkaline Phosphatase Ammonia Lactate Dehydrogenase Total Creatine Kinase CK-MB (CK-2) CK-MB (CK-2) Rel Index Troponin T 0.065 H NT-Pro-B Natriuret Pep Total Protein Albumin Prealbumin LDL Cholesterol Direct 31 L HDL Cholesterol 8 L Vancomycin Trough Crossmatch 06/02/19 06/02/19 06/03/19 16:40 17:10 04:06 WBC RBC Hgb Hct MCH RDW Lymph % (Auto) [place] % (Auto) Baso % (Auto) [place] # Baso # Seg Neutrophils % Seg Neuts % (Manual) Lymphocytes % (Manual) Nucleated RBC % Seg Neutrophils # Seg Neutrophils # Man Lymphocytes # (Manual) Basophils # (Manual) PT INR POC ABG pH 7.259 L ABG pH POC ABG pCO2 33.9 L POC ABG pO2 221 H 146 H ABG pO2 ABG HCO3 ABG Base Excess VBG pH Sodium Potassium Chloride Carbon Dioxide BUN Creatinine Glucose POC Glucose 151 H Lactic Acid Calcium Phosphorus Magnesium Total Bilirubin Direct Bilirubin AST ALT Alkaline Phosphatase Ammonia Lactate Dehydrogenase Total Creatine Kinase CK-MB (CK-2) CK-MB (CK-2) Rel Index Troponin T NT-Pro-B Natriuret Pep Total Protein Albumin Prealbumin LDL Cholesterol Direct HDL Cholesterol Vancomycin Trough Crossmatch 06/03/19 06/03/19 06/03/19 04:41 04:41 17:23 WBC 17.5 H RBC Hgb Hct MCH 27 L RDW 25.0 H Lymph % (Auto) [place] % (Auto) Baso % (Auto) [place] # Baso # Seg Neutrophils % Seg Neuts % (Manual) 96.0 H Lymphocytes % (Manual) 0 L Nucleated RBC % 1.0 H Seg Neutrophils # Seg Neutrophils # Man 16.8 H Lymphocytes # (Manual) 0.0 L Basophils # (Manual) PT INR POC ABG pH ABG pH POC ABG pCO2 POC ABG pO2 ABG pO2 ABG HCO3 ABG Base Excess VBG pH Sodium Potassium Chloride Carbon Dioxide 17 L BUN 42 H Creatinine Glucose 59 L POC Glucose 113 H Lactic Acid Calcium Phosphorus Magnesium Total Bilirubin 7.00 H Direct Bilirubin AST ALT Alkaline Phosphatase 153 H Ammonia Lactate Dehydrogenase Total Creatine Kinase CK-MB (CK-2) CK-MB (CK-2) Rel Index Troponin T NT-Pro-B Natriuret Pep Total Protein 5.9 L Albumin 1.7 L Prealbumin LDL Cholesterol Direct HDL Cholesterol Vancomycin Trough Crossmatch 06/03/19 06/04/19 06/04/19 23:37 05:10 05:10 WBC 16.7 H RBC Hgb Hct MCH 27 L RDW 24.5 H Lymph % (Auto) [place] % (Auto) Baso % (Auto) [place] # Baso # Seg Neutrophils % Seg Neuts % (Manual) 94.0 H Lymphocytes % (Manual) 3.0 L Nucleated RBC % Seg Neutrophils # Seg Neutrophils # Man 15.7 H Lymphocytes # (Manual) 0.5 L Basophils # (Manual) PT INR POC ABG pH ABG pH POC ABG pCO2 POC ABG pO2 ABG pO2 ABG HCO3 ABG Base Excess VBG pH Sodium Potassium Chloride Carbon Dioxide BUN 39 H Creatinine Glucose 136 H POC Glucose 126 H Lactic Acid Calcium 8.3 L Phosphorus Magnesium 1.30 L Total Bilirubin 7.70 H Direct Bilirubin AST ALT Alkaline Phosphatase 140 H Ammonia Lactate Dehydrogenase Total Creatine Kinase CK-MB (CK-2) CK-MB (CK-2) Rel Index Troponin T NT-Pro-B Natriuret Pep Total Protein 5.6 L Albumin 1.7 L Prealbumin LDL Cholesterol Direct HDL Cholesterol Vancomycin Trough Crossmatch 06/04/19 06/04/19 06/04/19 05:44 13:50 18:05 WBC RBC Hgb Hct MCH RDW Lymph % (Auto) [place] % (Auto) Baso % (Auto) [place] # Baso # Seg Neutrophils % Seg Neuts % (Manual) Lymphocytes % (Manual) Nucleated RBC % Seg Neutrophils # Seg Neutrophils # Man Lymphocytes # (Manual) Basophils # (Manual) PT INR POC ABG pH ABG pH POC ABG pCO2 POC ABG pO2 ABG pO2 ABG HCO3 ABG Base Excess VBG pH Sodium Potassium Chloride Carbon Dioxide BUN Creatinine Glucose POC Glucose 124 H 137 H 120 H Lactic Acid Calcium Phosphorus Magnesium Total Bilirubin Direct Bilirubin AST ALT Alkaline Phosphatase Ammonia Lactate Dehydrogenase Total Creatine Kinase CK-MB (CK-2) CK-MB (CK-2) Rel Index Troponin T NT-Pro-B Natriuret Pep Total Protein Albumin Prealbumin LDL Cholesterol Direct HDL Cholesterol Vancomycin Trough Crossmatch 06/05/19 06/05/19 06/05/19 00:58 04:20 04:20 WBC 15.0 H RBC Hgb Hct MCH 27 L RDW 25.0 H Lymph % (Auto) [place] % (Auto) Baso % (Auto) [place] # Baso # Seg Neutrophils % Seg Neuts % (Manual) Lymphocytes % (Manual) Nucleated RBC % Seg Neutrophils # Seg Neutrophils # Man Lymphocytes # (Manual) Basophils # (Manual) PT INR POC ABG pH ABG pH POC ABG pCO2 POC ABG pO2 ABG pO2 ABG HCO3 ABG Base Excess VBG pH Sodium Potassium Chloride Carbon Dioxide BUN 52 H Creatinine Glucose 137 H POC Glucose 114 H Lactic Acid Calcium 7.8 L Phosphorus Magnesium Total Bilirubin Direct Bilirubin AST ALT Alkaline Phosphatase Ammonia Lactate Dehydrogenase Total Creatine Kinase CK-MB (CK-2) CK-MB (CK-2) Rel Index Troponin T NT-Pro-B Natriuret Pep Total Protein Albumin Prealbumin LDL Cholesterol Direct HDL Cholesterol Vancomycin Trough Crossmatch 06/05/19 06/05/19 06/05/19 05:39 05:45 09:45 WBC RBC Hgb Hct MCH RDW Lymph % (Auto) [place] % (Auto) Baso % (Auto) [place] # Baso # Seg Neutrophils % Seg Neuts % (Manual) Lymphocytes % (Manual) Nucleated RBC % Seg Neutrophils # Seg Neutrophils # Man Lymphocytes # (Manual) Basophils # (Manual) PT INR POC ABG pH ABG pH POC ABG pCO2 POC ABG pO2 108 H ABG pO2 ABG HCO3 ABG Base Excess VBG pH Sodium Potassium Chloride Carbon Dioxide BUN Creatinine Glucose POC Glucose 111 H Lactic Acid Calcium Phosphorus Magnesium Total Bilirubin Direct Bilirubin AST ALT Alkaline Phosphatase Ammonia Lactate Dehydrogenase Total Creatine Kinase CK-MB (CK-2) CK-MB (CK-2) Rel Index Troponin T NT-Pro-B Natriuret Pep Total Protein Albumin Prealbumin LDL Cholesterol Direct HDL Cholesterol Vancomycin Trough 20.1 H Crossmatch 06/05/19 06/05/19 06/06/19 13:25 18:27 00:01 WBC RBC Hgb Hct MCH RDW Lymph % (Auto) [place] % (Auto) Baso % (Auto) [place] # Baso # Seg Neutrophils % Seg Neuts % (Manual) Lymphocytes % (Manual) Nucleated RBC % Seg Neutrophils # Seg Neutrophils # Man Lymphocytes # (Manual) Basophils # (Manual) PT INR POC ABG pH ABG pH POC ABG pCO2 POC ABG pO2 ABG pO2 ABG HCO3 ABG Base Excess VBG pH Sodium Potassium Chloride Carbon Dioxide BUN Creatinine Glucose POC Glucose 152 H 194 H 153 H Lactic Acid Calcium Phosphorus Magnesium Total Bilirubin Direct Bilirubin AST ALT Alkaline Phosphatase Ammonia Lactate Dehydrogenase Total Creatine Kinase CK-MB (CK-2) CK-MB (CK-2) Rel Index Troponin T NT-Pro-B Natriuret Pep Total Protein Albumin Prealbumin LDL Cholesterol Direct HDL Cholesterol Vancomycin Trough Crossmatch 06/06/19 06/06/19 06/06/19 04:20 05:45 12:32 WBC RBC Hgb Hct MCH RDW Lymph % (Auto) [place] % (Auto) Baso % (Auto) [place] # Baso # Seg Neutrophils % Seg Neuts % (Manual) Lymphocytes % (Manual) Nucleated RBC % Seg Neutrophils # Seg Neutrophils # Man Lymphocytes # (Manual) Basophils # (Manual) PT INR POC ABG pH ABG pH POC ABG pCO2 POC ABG pO2 ABG pO2 ABG HCO3 ABG Base Excess VBG pH Sodium Potassium Chloride Carbon Dioxide BUN 62 H Creatinine Glucose 141 H POC Glucose 161 H 131 H Lactic Acid Calcium 7.7 L Phosphorus 2.40 L Magnesium Total Bilirubin Direct Bilirubin AST ALT Alkaline Phosphatase Ammonia Lactate Dehydrogenase Total Creatine Kinase CK-MB (CK-2) CK-MB (CK-2) Rel Index Troponin T NT-Pro-B Natriuret Pep Total Protein Albumin Prealbumin LDL Cholesterol Direct HDL Cholesterol Vancomycin Trough Crossmatch 06/07/19 06/07/19 06/07/19 02:07 05:36 05:36 WBC 25.3 H RBC Hgb 10.8 L Hct 33.7 L MCH 27 L RDW 26.7 H Lymph % (Auto) [place] % (Auto) Baso % (Auto) [place] # Baso # Seg Neutrophils % Seg Neuts % (Manual) Lymphocytes % (Manual) Nucleated RBC % Seg Neutrophils # Seg Neutrophils # Man Lymphocytes # (Manual) Basophils # (Manual) PT INR POC ABG pH ABG pH POC ABG pCO2 POC ABG pO2 ABG pO2 ABG HCO3 ABG Base Excess VBG pH Sodium 135 L Potassium Chloride 93.6 L Carbon Dioxide BUN 58 H Creatinine Glucose 131 H POC Glucose 165 H Lactic Acid Calcium 8.0 L Phosphorus Magnesium Total Bilirubin Direct Bilirubin AST ALT Alkaline Phosphatase Ammonia Lactate Dehydrogenase Total Creatine Kinase CK-MB (CK-2) CK-MB (CK-2) Rel Index Troponin T NT-Pro-B Natriuret Pep Total Protein Albumin Prealbumin LDL Cholesterol Direct HDL Cholesterol Vancomycin Trough Crossmatch 06/07/19 06/07/19 06/07/19 09:44 18:05 23:51 WBC RBC Hgb Hct MCH RDW Lymph % (Auto) [place] % (Auto) Baso % (Auto) [place] # Baso # Seg Neutrophils % Seg Neuts % (Manual) Lymphocytes % (Manual) Nucleated RBC % Seg Neutrophils # Seg Neutrophils # Man Lymphocytes # (Manual) Basophils # (Manual) PT INR POC ABG pH 7.508 H ABG pH POC ABG pCO2 POC ABG pO2 75 L ABG pO2 ABG HCO3 ABG Base Excess VBG pH Sodium Potassium Chloride Carbon Dioxide BUN Creatinine Glucose POC Glucose 137 H 180 H Lactic Acid Calcium Phosphorus Magnesium Total Bilirubin Direct Bilirubin AST ALT Alkaline Phosphatase Ammonia Lactate Dehydrogenase Total Creatine Kinase CK-MB (CK-2) CK-MB (CK-2) Rel Index Troponin T NT-Pro-B Natriuret Pep Total Protein Albumin Prealbumin LDL Cholesterol Direct HDL Cholesterol Vancomycin Trough Crossmatch 06/08/19 06/08/19 06/08/19 05:07 05:07 06:26 WBC 25.1 H RBC 3.21 L Hgb 8.8 L Hct 27.3 L D MCH RDW 27.7 H Lymph % (Auto) [place] % (Auto) Baso % (Auto) [place] # Baso # Seg Neutrophils % Seg Neuts % (Manual) Lymphocytes % (Manual) Nucleated RBC % Seg Neutrophils # Seg Neutrophils # Man Lymphocytes # (Manual) Basophils # (Manual) PT INR POC ABG pH ABG pH POC ABG pCO2 POC ABG pO2 ABG pO2 ABG HCO3 ABG Base Excess VBG pH Sodium 134 L Potassium Chloride 97.2 L Carbon Dioxide BUN 49 H Creatinine 0.7 L Glucose 144 H POC Glucose 149 H Lactic Acid Calcium 7.7 L Phosphorus Magnesium Total Bilirubin Direct Bilirubin AST ALT Alkaline Phosphatase Ammonia Lactate Dehydrogenase Total Creatine Kinase CK-MB (CK-2) CK-MB (CK-2) Rel Index Troponin T NT-Pro-B Natriuret Pep Total Protein Albumin Prealbumin LDL Cholesterol Direct HDL Cholesterol Vancomycin Trough Crossmatch 06/08/19 06/08/19 06/09/19 11:18 17:43 00:04 WBC RBC Hgb Hct MCH RDW Lymph % (Auto) [place] % (Auto) Baso % (Auto) [place] # Baso # Seg Neutrophils % Seg Neuts % (Manual) Lymphocytes % (Manual) Nucleated RBC % Seg Neutrophils # Seg Neutrophils # Man Lymphocytes # (Manual) Basophils # (Manual) PT INR POC ABG pH ABG pH POC ABG pCO2 POC ABG pO2 ABG pO2 ABG HCO3 ABG Base Excess VBG pH Sodium Potassium Chloride Carbon Dioxide BUN Creatinine Glucose POC Glucose 134 H 153 H 161 H Lactic Acid Calcium Phosphorus Magnesium Total Bilirubin Direct Bilirubin AST ALT Alkaline Phosphatase Ammonia Lactate Dehydrogenase Total Creatine Kinase CK-MB (CK-2) CK-MB (CK-2) Rel Index Troponin T NT-Pro-B Natriuret Pep Total Protein Albumin Prealbumin LDL Cholesterol Direct HDL Cholesterol Vancomycin Trough Crossmatch 06/09/19 06/09/19 06/09/19 05:51 08:58 11:53 WBC RBC Hgb Hct MCH RDW Lymph % (Auto) [place] % (Auto) Baso % (Auto) [place] # Baso # Seg Neutrophils % Seg Neuts % (Manual) Lymphocytes % (Manual) Nucleated RBC % Seg Neutrophils # Seg Neutrophils # Man Lymphocytes # (Manual) Basophils # (Manual) PT INR POC ABG pH ABG pH POC ABG pCO2 POC ABG pO2 ABG pO2 ABG HCO3 ABG Base Excess VBG pH Sodium Potassium Chloride 97.1 L Carbon Dioxide BUN 40 H Creatinine 0.6 L Glucose 161 H POC Glucose 183 H 189 H Lactic Acid Calcium 7.9 L Phosphorus Magnesium Total Bilirubin Direct Bilirubin AST ALT Alkaline Phosphatase Ammonia Lactate Dehydrogenase Total Creatine Kinase CK-MB (CK-2) CK-MB (CK-2) Rel Index Troponin T NT-Pro-B Natriuret Pep Total Protein Albumin Prealbumin LDL Cholesterol Direct HDL Cholesterol Vancomycin Trough Crossmatch 06/09/19 06/10/19 06/10/19 17:30 05:00 08:36 WBC RBC Hgb Hct MCH RDW Lymph % (Auto) [place] % (Auto) Baso % (Auto) [place] # Baso # Seg Neutrophils % Seg Neuts % (Manual) Lymphocytes % (Manual) Nucleated RBC % Seg Neutrophils # Seg Neutrophils # Man Lymphocytes # (Manual) Basophils # (Manual) PT INR POC ABG pH ABG pH POC ABG pCO2 POC ABG pO2 ABG pO2 ABG HCO3 ABG Base Excess VBG pH Sodium Potassium Chloride Carbon Dioxide BUN Creatinine Glucose POC Glucose 145 H 173 H 119 H Lactic Acid Calcium Phosphorus Magnesium Total Bilirubin Direct Bilirubin AST ALT Alkaline Phosphatase Ammonia Lactate Dehydrogenase Total Creatine Kinase CK-MB (CK-2) CK-MB (CK-2) Rel Index Troponin T NT-Pro-B Natriuret Pep Total Protein Albumin Prealbumin LDL Cholesterol Direct HDL Cholesterol Vancomycin Trough Crossmatch 06/10/19 06/10/19 06/10/19 09:25 09:25 09:25 WBC 18.9 H RBC 2.61 L Hgb 7.3 L Hct 22.8 L MCH RDW 29.2 H Lymph % (Auto) [place] % (Auto) Baso % (Auto) [place] # Baso # Seg Neutrophils % Seg Neuts % (Manual) Lymphocytes % (Manual) Nucleated RBC % Seg Neutrophils # Seg Neutrophils # Man Lymphocytes # (Manual) Basophils # (Manual) PT INR POC ABG pH ABG pH POC ABG pCO2 POC ABG pO2 ABG pO2 ABG HCO3 ABG Base Excess VBG pH Sodium Potassium Chloride 95.5 L Carbon Dioxide 31 H BUN 38 H Creatinine Glucose 115 H POC Glucose Lactic Acid Calcium 7.8 L Phosphorus Magnesium Total Bilirubin 4.80 H Direct Bilirubin 3.7 H AST 127 H ALT 93 H Alkaline Phosphatase 180 H Ammonia Lactate Dehydrogenase Total Creatine Kinase CK-MB (CK-2) CK-MB (CK-2) Rel Index Troponin T NT-Pro-B Natriuret Pep Total Protein 5.3 L Albumin 1.5 L Prealbumin LDL Cholesterol Direct HDL Cholesterol Vancomycin Trough Crossmatch 06/10/19 06/10/19 06/10/19 11:23 16:38 21:11 WBC RBC Hgb Hct MCH RDW Lymph % (Auto) [place] % (Auto) Baso % (Auto) [place] # Baso # Seg Neutrophils % Seg Neuts % (Manual) Lymphocytes % (Manual) Nucleated RBC % Seg Neutrophils # Seg Neutrophils # Man Lymphocytes # (Manual) Basophils # (Manual) PT INR POC ABG pH ABG pH POC ABG pCO2 POC ABG pO2 ABG pO2 ABG HCO3 ABG Base Excess VBG pH Sodium Potassium Chloride Carbon Dioxide BUN Creatinine Glucose POC Glucose 175 H 164 H 159 H Lactic Acid Calcium Phosphorus Magnesium Total Bilirubin Direct Bilirubin AST ALT Alkaline Phosphatase Ammonia Lactate Dehydrogenase Total Creatine Kinase CK-MB (CK-2) CK-MB (CK-2) Rel Index Troponin T NT-Pro-B Natriuret Pep Total Protein Albumin Prealbumin LDL Cholesterol Direct HDL Cholesterol Vancomycin Trough Crossmatch 06/10/19 06/11/19 06/11/19 23:23 00:22 05:58 WBC RBC Hgb Hct MCH RDW Lymph % (Auto) [place] % (Auto) Baso % (Auto) [place] # Baso # Seg Neutrophils % Seg Neuts % (Manual) Lymphocytes % (Manual) Nucleated RBC % Seg Neutrophils # Seg Neutrophils # Man Lymphocytes # (Manual) Basophils # (Manual) PT INR POC ABG pH ABG pH POC ABG pCO2 POC ABG pO2 ABG pO2 ABG HCO3 ABG Base Excess VBG pH Sodium 135 L Potassium Chloride 95.7 L Carbon Dioxide 33 H BUN 36 H Creatinine 0.7 L Glucose 155 H POC Glucose 188 H Lactic Acid Calcium 7.7 L Phosphorus Magnesium Total Bilirubin 4.10 H Direct Bilirubin AST 89 H ALT 77 H Alkaline Phosphatase 154 H Ammonia Lactate Dehydrogenase Total Creatine Kinase CK-MB (CK-2) CK-MB (CK-2) Rel Index Troponin T NT-Pro-B Natriuret Pep Total Protein 5.3 L Albumin 1.7 L Prealbumin 0.106 L LDL Cholesterol Direct HDL Cholesterol Vancomycin Trough Crossmatch 06/11/19 06/11/19 06/11/19 06:53 11:17 16:21 WBC RBC Hgb Hct MCH RDW Lymph % (Auto) [place] % (Auto) Baso % (Auto) [place] # Baso # Seg Neutrophils % Seg Neuts % (Manual) Lymphocytes % (Manual) Nucleated RBC % Seg Neutrophils # Seg Neutrophils # Man Lymphocytes # (Manual) Basophils # (Manual) PT INR POC ABG pH ABG pH POC ABG pCO2 POC ABG pO2 ABG pO2 ABG HCO3 ABG Base Excess VBG pH Sodium Potassium Chloride Carbon Dioxide BUN Creatinine Glucose POC Glucose 198 H 157 H 190 H Lactic Acid Calcium Phosphorus Magnesium Total Bilirubin Direct Bilirubin AST ALT Alkaline Phosphatase Ammonia Lactate Dehydrogenase Total Creatine Kinase CK-MB (CK-2) CK-MB (CK-2) Rel Index Troponin T NT-Pro-B Natriuret Pep Total Protein Albumin Prealbumin LDL Cholesterol Direct HDL Cholesterol Vancomycin Trough Crossmatch 06/12/19 06/12/19 06/12/19 00:17 05:27 06:27 WBC RBC Hgb Hct MCH RDW Lymph % (Auto) [place] % (Auto) Baso % (Auto) [place] # Baso # Seg Neutrophils % Seg Neuts % (Manual) Lymphocytes % (Manual) Nucleated RBC % Seg Neutrophils # Seg Neutrophils # Man Lymphocytes # (Manual) Basophils # (Manual) PT INR POC ABG pH ABG pH POC ABG pCO2 POC ABG pO2 ABG pO2 ABG HCO3 ABG Base Excess VBG pH Sodium 136 L Potassium Chloride 95.6 L Carbon Dioxide BUN 39 H Creatinine Glucose 144 H POC Glucose 139 H 169 H Lactic Acid Calcium 8.3 L Phosphorus Magnesium Total Bilirubin Direct Bilirubin AST ALT Alkaline Phosphatase Ammonia Lactate Dehydrogenase Total Creatine Kinase CK-MB (CK-2) CK-MB (CK-2) Rel Index Troponin T NT-Pro-B Natriuret Pep Total Protein Albumin Prealbumin LDL Cholesterol Direct HDL Cholesterol Vancomycin Trough Crossmatch 06/12/19 06/13/19 06/13/19 11:52 00:27 06:00 WBC RBC Hgb Hct MCH RDW Lymph % (Auto) [place] % (Auto) Baso % (Auto) [place] # Baso # Seg Neutrophils % Seg Neuts % (Manual) Lymphocytes % (Manual) Nucleated RBC % Seg Neutrophils # Seg Neutrophils # Man Lymphocytes # (Manual) Basophils # (Manual) PT INR POC ABG pH ABG pH POC ABG pCO2 POC ABG pO2 ABG pO2 ABG HCO3 ABG Base Excess VBG pH Sodium Potassium Chloride Carbon Dioxide BUN Creatinine Glucose POC Glucose 146 H 151 H 133 H Lactic Acid Calcium Phosphorus Magnesium Total Bilirubin Direct Bilirubin AST ALT Alkaline Phosphatase Ammonia Lactate Dehydrogenase Total Creatine Kinase CK-MB (CK-2) CK-MB (CK-2) Rel Index Troponin T NT-Pro-B Natriuret Pep Total Protein Albumin Prealbumin LDL Cholesterol Direct HDL Cholesterol Vancomycin Trough Crossmatch 06/13/19 06/13/19 06/13/19 06:11 06:11 06:11 WBC 17.0 H RBC 2.32 L Hgb 6.8 L Hct 20.9 L MCH RDW 29.2 H Lymph % (Auto) [place] % (Auto) Baso % (Auto) [place] # Baso # Seg Neutrophils % Seg Neuts % (Manual) 92.0 H Lymphocytes % (Manual) 2.0 L Nucleated RBC % Seg Neutrophils # Seg Neutrophils # Man 15.6 H Lymphocytes # (Manual) 0.3 L Basophils # (Manual) 0.2 H PT INR POC ABG pH ABG pH POC ABG pCO2 POC ABG pO2 ABG pO2 ABG HCO3 ABG Base Excess VBG pH Sodium 134 L Potassium Chloride 96.1 L Carbon Dioxide BUN 42 H Creatinine Glucose 126 H POC Glucose Lactic Acid Calcium 8.0 L Phosphorus Magnesium Total Bilirubin Direct Bilirubin AST ALT Alkaline Phosphatase Ammonia Lactate Dehydrogenase 214 H Total Creatine Kinase CK-MB (CK-2) CK-MB (CK-2) Rel Index Troponin T NT-Pro-B Natriuret Pep Total Protein Albumin Prealbumin LDL Cholesterol Direct HDL Cholesterol Vancomycin Trough Crossmatch 06/13/19 06/13/19 06/13/19 11:17 11:25 16:57 WBC RBC Hgb Hct MCH RDW Lymph % (Auto) [place] % (Auto) Baso % (Auto) [place] # Baso # Seg Neutrophils % Seg Neuts % (Manual) Lymphocytes % (Manual) Nucleated RBC % Seg Neutrophils # Seg Neutrophils # Man Lymphocytes # (Manual) Basophils # (Manual) PT INR POC ABG pH ABG pH POC ABG pCO2 POC ABG pO2 ABG pO2 ABG HCO3 ABG Base Excess VBG pH Sodium Potassium Chloride Carbon Dioxide BUN Creatinine Glucose POC Glucose 185 H 224 H Lactic Acid Calcium Phosphorus Magnesium Total Bilirubin Direct Bilirubin AST ALT Alkaline Phosphatase Ammonia Lactate Dehydrogenase Total Creatine Kinase CK-MB (CK-2) CK-MB (CK-2) Rel Index Troponin T NT-Pro-B Natriuret Pep Total Protein Albumin Prealbumin LDL Cholesterol Direct HDL Cholesterol Vancomycin Trough Crossmatch See Detail 06/13/19 06/13/19 06/14/19 17:05 17:23 04:45 WBC RBC Hgb 9.2 L Hct 28.9 L D MCH RDW Lymph % (Auto) [place] % (Auto) Baso % (Auto) [place] # Baso # Seg Neutrophils % Seg Neuts % (Manual) Lymphocytes % (Manual) Nucleated RBC % Seg Neutrophils # Seg Neutrophils # Man Lymphocytes # (Manual) Basophils # (Manual) PT INR POC ABG pH 7.320 L ABG pH 7.460 H POC ABG pCO2 53.9 H POC ABG pO2 121 H ABG pO2 107.6 H ABG HCO3 27.2 H ABG Base Excess 3.3 H VBG pH Sodium Potassium Chloride Carbon Dioxide BUN Creatinine Glucose POC Glucose Lactic Acid Calcium Phosphorus Magnesium Total Bilirubin Direct Bilirubin AST ALT Alkaline Phosphatase Ammonia Lactate Dehydrogenase Total Creatine Kinase CK-MB (CK-2) CK-MB (CK-2) Rel Index Troponin T NT-Pro-B Natriuret Pep Total Protein Albumin Prealbumin LDL Cholesterol Direct HDL Cholesterol Vancomycin Trough Crossmatch 06/14/19 06/14/19 06/14/19 05:45 05:45 11:52 WBC 16.7 H RBC 3.45 L Hgb 10.2 L Hct 31.1 L MCH RDW 24.2 H Lymph % (Auto) 7.4 L [place] % (Auto) 8.5 H Baso % (Auto) 2.3 H [place] # 1.4 H Baso # 0.4 H Seg Neutrophils % 80.4 H Seg Neuts % (Manual) Lymphocytes % (Manual) Nucleated RBC % Seg Neutrophils # 13.4 H Seg Neutrophils # Man Lymphocytes # (Manual) Basophils # (Manual) PT INR POC ABG pH ABG pH POC ABG pCO2 POC ABG pO2 ABG pO2 ABG HCO3 ABG Base Excess VBG pH Sodium Potassium Chloride Carbon Dioxide BUN 43 H Creatinine Glucose POC Glucose 140 H Lactic Acid Calcium 7.7 L Phosphorus Magnesium Total Bilirubin Direct Bilirubin AST ALT Alkaline Phosphatase Ammonia Lactate Dehydrogenase Total Creatine Kinase CK-MB (CK-2) CK-MB (CK-2) Rel Index Troponin T NT-Pro-B Natriuret Pep Total Protein Albumin Prealbumin LDL Cholesterol Direct HDL Cholesterol Vancomycin Trough Crossmatch 06/14/19 06/14/19 06/15/19 18:20 23:29 05:10 WBC RBC Hgb Hct MCH RDW Lymph % (Auto) [place] % (Auto) Baso % (Auto) [place] # Baso # Seg Neutrophils % Seg Neuts % (Manual) Lymphocytes % (Manual) Nucleated RBC % Seg Neutrophils # Seg Neutrophils # Man Lymphocytes # (Manual) Basophils # (Manual) PT INR POC ABG pH ABG pH POC ABG pCO2 POC ABG pO2 ABG pO2 ABG HCO3 ABG Base Excess VBG pH Sodium Potassium 3.4 L Chloride Carbon Dioxide BUN 37 H Creatinine Glucose 138 H POC Glucose 150 H 184 H Lactic Acid Calcium 8.0 L Phosphorus Magnesium Total Bilirubin Direct Bilirubin AST ALT Alkaline Phosphatase Ammonia Lactate Dehydrogenase Total Creatine Kinase CK-MB (CK-2) CK-MB (CK-2) Rel Index Troponin T NT-Pro-B Natriuret Pep Total Protein Albumin Prealbumin LDL Cholesterol Direct HDL Cholesterol Vancomycin Trough Crossmatch 06/15/19 06/15/19 06/15/19 05:23 12:34 21:27 WBC RBC Hgb Hct MCH RDW Lymph % (Auto) [place] % (Auto) Baso % (Auto) [place] # Baso # Seg Neutrophils % Seg Neuts % (Manual) Lymphocytes % (Manual) Nucleated RBC % Seg Neutrophils # Seg Neutrophils # Man Lymphocytes # (Manual) Basophils # (Manual) PT INR POC ABG pH ABG pH POC ABG pCO2 POC ABG pO2 ABG pO2 ABG HCO3 ABG Base Excess VBG pH Sodium Potassium Chloride Carbon Dioxide BUN Creatinine Glucose POC Glucose 132 H 176 H 212 H Lactic Acid Calcium Phosphorus Magnesium Total Bilirubin Direct Bilirubin AST ALT Alkaline Phosphatase Ammonia Lactate Dehydrogenase Total Creatine Kinase CK-MB (CK-2) CK-MB (CK-2) Rel Index Troponin T NT-Pro-B Natriuret Pep Total Protein Albumin Prealbumin LDL Cholesterol Direct HDL Cholesterol Vancomycin Trough Crossmatch 06/16/19 06/16/19 06/16/19 04:30 06:09 06:31 WBC RBC Hgb Hct MCH RDW Lymph % (Auto) [place] % (Auto) Baso % (Auto) [place] # Baso # Seg Neutrophils % Seg Neuts % (Manual) Lymphocytes % (Manual) Nucleated RBC % Seg Neutrophils # Seg Neutrophils # Man Lymphocytes # (Manual) Basophils # (Manual) PT INR POC ABG pH ABG pH POC ABG pCO2 POC ABG pO2 ABG pO2 ABG HCO3 ABG Base Excess VBG pH Sodium Potassium Chloride Carbon Dioxide BUN 39 H Creatinine Glucose 132 H POC Glucose 153 H Lactic Acid Calcium 7.8 L Phosphorus Magnesium Total Bilirubin 3.20 H 3.30 H Direct Bilirubin 2.4 H AST ALT Alkaline Phosphatase 130 H 137 H Ammonia Lactate Dehydrogenase Total Creatine Kinase CK-MB (CK-2) CK-MB (CK-2) Rel Index Troponin T NT-Pro-B Natriuret Pep Total Protein 6.2 L 5.7 L Albumin 1.8 L 1.8 L Prealbumin LDL Cholesterol Direct HDL Cholesterol Vancomycin Trough Crossmatch 06/16/19 06/16/19 06/16/19 11:59 18:08 21:48 WBC RBC Hgb Hct MCH RDW Lymph % (Auto) [place] % (Auto) Baso % (Auto) [place] # Baso # Seg Neutrophils % Seg Neuts % (Manual) Lymphocytes % (Manual) Nucleated RBC % Seg Neutrophils # Seg Neutrophils # Man Lymphocytes # (Manual) Basophils # (Manual) PT INR POC ABG pH ABG pH POC ABG pCO2 POC ABG pO2 ABG pO2 ABG HCO3 ABG Base Excess VBG pH Sodium Potassium Chloride Carbon Dioxide BUN Creatinine Glucose POC Glucose 158 H 198 H 130 H Lactic Acid Calcium Phosphorus Magnesium Total Bilirubin Direct Bilirubin AST ALT Alkaline Phosphatase Ammonia Lactate Dehydrogenase Total Creatine Kinase CK-MB (CK-2) CK-MB (CK-2) Rel Index Troponin T NT-Pro-B Natriuret Pep Total Protein Albumin Prealbumin LDL Cholesterol Direct HDL Cholesterol Vancomycin Trough Crossmatch 06/17/19 06/17/19 06/17/19 06:03 10:35 12:21 WBC RBC Hgb Hct MCH RDW Lymph % (Auto) [place] % (Auto) Baso % (Auto) [place] # Baso # Seg Neutrophils % Seg Neuts % (Manual) Lymphocytes % (Manual) Nucleated RBC % Seg Neutrophils # Seg Neutrophils # Man Lymphocytes # (Manual) Basophils # (Manual) PT INR POC ABG pH ABG pH POC ABG pCO2 POC ABG pO2 ABG pO2 ABG HCO3 ABG Base Excess VBG pH Sodium 134 L Potassium Chloride 96.2 L Carbon Dioxide BUN 49 H Creatinine Glucose 119 H POC Glucose 161 H 151 H Lactic Acid Calcium 7.7 L Phosphorus Magnesium Total Bilirubin Direct Bilirubin AST ALT Alkaline Phosphatase Ammonia Lactate Dehydrogenase Total Creatine Kinase CK-MB (CK-2) CK-MB (CK-2) Rel Index Troponin T NT-Pro-B Natriuret Pep Total Protein Albumin Prealbumin LDL Cholesterol Direct HDL Cholesterol Vancomycin Trough Crossmatch
--- NOTE | 2019-06-17 13:07 | Progress Note ---
Assessment and Plan Cultures: Blood culture 06/02/19 no growth to date Urine culture 06/02/19 no growth to date Surgical culture 06/02/19 Suni albicans Wound culture right foot 06/02/2019 - PsA, Morganella Surgical foot culture Left 06/05/2019 - P mirabilis Surgical foot culture right 06/05/2019 - P mirabilis 06/13/2019 sputum culture: no growth Assessment: 63 yo M with severe non ischemic cardiomyopathy and heart failure, chronic bilateral wounds admitted with small perforated gastric ulcer. 1. Acute sepsis: POA. Likely secondary to perforated gastric ulcer and infected chronic wounds on LE. 2. Infected bilateral infected wounds - chronic with worsening. He has significant CHF and likely perfusion compromise. Concern for the viability of these limbs. Surgery has also evaluated. patient has refused amputation. His LE wounds are not curable. This was explained to him at length by Dr. Dos Santos. s/p debridement again by Dr. Oakes on 06/12/2019. 3. Perforated gastric ulcer: s/p surgery: exploratory laparotomy, omental patch of perforated gastric ulcer. 4. Elevated bilirubin: GI following. Cholestasis, thought to be related to congestive heart failure and TPN. 5. Acute hypoxic respiratory failure: CXR not consistent with any pneumonia. Afebrile. Likely pulmonary edema, patient has very low EF. Improving. Recs: - last day of Cefepime today - continue wound care Diamond Cohen MD, FACP [facility] C: [phone] O: [phone] F: [phone] Subjective Date of service: 06/17/19 Principal diagnosis: elevated LFTs Interval history: Lying in bed. Denies any complaints. Has abdominal binder in place. Objective - Exam Narrative Exam: Physical Exam: Constitutional: awake, alert, no distress Head, Ears, Nose: Normocephalic, atraumatic. External ears, nose normal Eyes: Conjunctivae/corneas clear. No ptosis. Neck: supple, no meningeal signs Oral: poor dentition Cardiovascular: S1, S2 normal. Respiratory: Good air entry, clear to auscultation bilaterally GI: abdominal binder + Musculoskeletal: b/l LE with extensive wounds and drainage Skin: No rash or abscess Hem/Lymphatic: No palpable cervical or supraclavicular nodes. No lymphangitis Psych: no agitation Neurological: awake, alert - Constitutional Vitals: Vital Signs Temp Pulse Resp BP Pulse Ox 98.0 F 113 H 20 129/85 100 06/17/19 07:27 06/17/19 09:59 06/17/19 09:26 06/17/19 09:59 06/17/19 09:09 Temperature -Last 24 Hours Temperature 98.0 F Temperature 96.7 F Temperature 98.7 F Temperature 97.9 F Temperature 97.7 F - Labs CBC & Chem 7: 06/14/19 05:45 06/17/19 10:35 Labs: Abnormal lab results 06/16/19 06/16/19 06/17/19 Range/Units 18:08 21:48 06:03 Sodium (137-145) mmol/L Chloride (98-107) mmol/L BUN (9-20) mg/dL Glucose (75-100) mg/dL POC Glucose 198 H 130 H 161 H (70-105) Calcium (8.4-10.2) mg/dL 06/17/19 06/17/19 Range/Units 10:35 12:21 Sodium 134 L (137-145) mmol/L Chloride 96.2 L (98-107) mmol/L BUN 49 H (9-20) mg/dL Glucose 119 H (75-100) mg/dL POC Glucose 151 H (70-105) Calcium 7.7 L (8.4-10.2) mg/dL
--- NOTE | 2019-06-17 19:01 | Progress Note ---
Assessment and Plan Assessment and plan: -Perforated gastric ulcer. s/p exploratory laparotomy, omental patch of perforated gastric ulcer by Dr. Kranthi green, cont empiric abx, advance diet as tolerated Taper and DC TPN, --Hypokalemia; resolved --Acute hypoxic respiratory failure; intubation and s/p extubation --Sepsis with bilateral lower extremity cellulitis/infected ulcer /perforated gastric ulcer --bilateral lower extremity cellulitis/infected ulcer - from PVD s/p bilateral I and D done 06/05 s/p surgical debridement on 06/13/2019 Continue wound care --Chronic systolic CHF; Continue current cardiac medications --Severe protein calorie malnutrition nutrition consult, may need TPN --CKD stage III, resolved --Jaundice Elevated bilirubin, Total Bili of 7.7 -4.1 GI evaluated and signed off --Severe metabolic acidosis: Resolved --DVT Prophylaxis: Heparin DC planning per case management Possible placement when medically stable History Interval history: -Patient seen and examined medical records reviewed Tolerating full liquid diet, advance as tolerated On TPN tapering doses No new complaints Hospitalist Physical - Constitutional Vitals: Temp Pulse Resp BP Pulse Ox 98.0 F 111 H 20 129/85 100 06/17/19 07:27 06/17/19 14:39 06/17/19 14:39 06/17/19 09:59 06/17/19 14:39 General appearance: Present: no acute distress, well-nourished - EENT Eyes: Present: PERRL, EOM intact - Neck Neck: Present: supple, normal ROM - Respiratory Respiratory effort: normal Respiratory: bilateral: diminished, negative: rales, rhonchi, wheezing - Cardiovascular Rhythm: regular - Extremities Extremities: no ischemia, abnormal (Wound dressing in place) - Abdominal General gastrointestinal: soft, non-tender, non-distended, normal bowel sounds - Integumentary Integumentary: Present: clear, warm - Psychiatric Psychiatric: appropriate mood/affect, cooperative - Neurologic Neurologic: CNII-XII intact, moves all extremities Results - Labs CBC & Chem 7: 06/14/19 05:45 06/18/19 10:38 Labs: Laboratory Last Values WBC 16.7 K/mm3 (4.5-11.0) H 06/14/19 05:45 RBC 3.45 M/mm3 (3.65-5.03) L 06/14/19 05:45 Hgb 10.2 gm/dl (11.8-15.2) L 06/14/19 05:45 Hct 31.1 % (35.5-45.6) L 06/14/19 05:45 MCV 90 fl (84-94) 06/14/19 05:45 MCH 30 pg (28-32) 06/14/19 05:45 MCHC 33 % (32-34) 06/14/19 05:45 RDW 24.2 % (13.2-15.2) H 06/14/19 05:45 Plt Count 355 K/mm3 (140-440) 06/14/19 05:45 Lymph % (Auto) 7.4 % (13.4-35.0) L 06/14/19 05:45 [place] % (Auto) 8.5 % (0.0-7.3) H 06/14/19 05:45 Eos % (Auto) 1.4 % (0.0-4.3) 06/14/19 05:45 Baso % (Auto) 2.3 % (0.0-1.8) H 06/14/19 05:45 Lymph # 1.2 K/mm3 (1.2-5.4) 06/14/19 05:45 [place] # 1.4 K/mm3 (0.0-0.8) H 06/14/19 05:45 Eos # 0.2 K/mm3 (0.0-0.4) 06/14/19 05:45 Baso # 0.4 K/mm3 (0.0-0.1) H 06/14/19 05:45 Add Manual Diff Complete 06/13/19 06:11 Total Counted 100 06/13/19 06:11 Seg Neutrophils % 80.4 % (40.0-70.0) H 06/14/19 05:45 Seg Neuts % (Manual) 92.0 % (40.0-70.0) H 06/13/19 06:11 Band Neutrophils % 0 % 06/13/19 06:11 Lymphocytes % (Manual) 2.0 % (13.4-35.0) L 06/13/19 06:11 Reactive Lymphs % (Man) 0 % 06/13/19 06:11 Monocytes % (Manual) 4.0 % (0.0-7.3) 06/13/19 06:11 Eosinophils % (Manual) 1.0 % (0.0-4.3) 06/13/19 06:11 Basophils % (Manual) 1.0 % (0.0-1.8) 06/13/19 06:11 Metamyelocytes % 0 % 06/13/19 06:11 Myelocytes % 0 % 06/13/19 06:11 Promyelocytes % 0 % 06/13/19 06:11 Blast Cells % 0 % 06/13/19 06:11 Nucleated RBC % Not Reportable 06/13/19 06:11 Seg Neutrophils # 13.4 K/mm3 (1.8-7.7) H 06/14/19 05:45 Seg Neutrophils # Man 15.6 K/mm3 (1.8-7.7) H 06/13/19 06:11 Band Neutrophils # 0.0 K/mm3 06/13/19 06:11 Lymphocytes # (Manual) 0.3 K/mm3 (1.2-5.4) L 06/13/19 06:11 Abs React Lymphs (Man) 0.0 K/mm3 06/13/19 06:11 Monocytes # (Manual) 0.7 K/mm3 (0.0-0.8) 06/13/19 06:11 Eosinophils # (Manual) 0.2 K/mm3 (0.0-0.4) 06/13/19 06:11 Basophils # (Manual) 0.2 K/mm3 (0.0-0.1) H 06/13/19 06:11 Metamyelocytes # 0.0 K/mm3 06/13/19 06:11 Myelocytes # 0.0 K/mm3 06/13/19 06:11 Promyelocytes # 0.0 K/mm3 06/13/19 06:11 Blast Cells # 0.0 K/mm3 06/13/19 06:11 WBC Morphology Not Reportable 06/13/19 06:11 Hypersegmented Neuts Not Reportable 06/13/19 06:11 Hyposegmented Neuts Not Reportable 06/13/19 06:11 Hypogranular Neuts Not Reportable 06/13/19 06:11 Smudge Cells Not Reportable 06/13/19 06:11 Toxic Granulation Not Reportable 06/13/19 06:11 Toxic Vacuolation Not Reportable 06/13/19 06:11 Dohle Bodies Not Reportable 06/13/19 06:11 Pelger-Huet Anomaly Not Reportable 06/13/19 06:11 Romero Rods Not Reportable 06/13/19 06:11 Platelet Estimate Consistent w auto 06/13/19 06:11 Clumped Platelets Not Reportable 06/13/19 06:11 Plt Clumps, EDTA Not Reportable 06/13/19 06:11 Large Platelets Not Reportable 06/13/19 06:11 Giant Platelets Not Reportable 06/13/19 06:11 Platelet Satelliting Not Reportable 06/13/19 06:11 Plt Morphology Comment Not Reportable 06/13/19 06:11 RBC Morphology Not Reportable 06/13/19 06:11 Dimorphic RBCs Not Reportable 06/13/19 06:11 Polychromasia Not Reportable 06/13/19 06:11 Hypochromasia 2+ 06/13/19 06:11 Poikilocytosis Not Reportable 06/13/19 06:11 Anisocytosis 1+ 06/13/19 06:11 Microcytosis Not Reportable 06/13/19 06:11 Macrocytosis Not Reportable 06/13/19 06:11 Spherocytes Not Reportable 06/13/19 06:11 Pappenheimer Bodies Not Reportable 06/13/19 06:11 Sickle Cells Not Reportable 06/13/19 06:11 Target Cells 1+ 06/13/19 06:11 Tear Drop Cells Not Reportable 06/13/19 06:11 Ovalocytes Not Reportable 06/13/19 06:11 Helmet Cells Not Reportable 06/13/19 06:11 [place] Bodies Not Reportable 06/13/19 06:11 [place] Rings Not Reportable 06/13/19 06:11 [place] Cells Not Reportable 06/13/19 06:11 Bite Cells Not Reportable 06/13/19 06:11 Crenated Cell Not Reportable 06/13/19 06:11 Elliptocytes Not Reportable 06/13/19 06:11 Acanthocytes (Spur) Not Reportable 06/13/19 06:11 Rouleaux Not Reportable 06/13/19 06:11 Hemoglobin C Crystals Not Reportable 06/13/19 06:11 Schistocytes Not Reportable 06/13/19 06:11 Malaria parasites Not Reportable 06/13/19 06:11 Bunny Bodies Not Reportable 06/13/19 06:11 Hem Pathologist Commnt No 06/13/19 06:11 PT 17.9 Sec. (12.2-14.9) H 06/02/19 07:15 INR 1.50 (0.87-1.13) H 06/02/19 07:15 APTT 33.2 Sec. (24.2-36.6) 06/02/19 07:15 POC ABG pH 7.320 (7.35-7.45) L 06/13/19 17:23 ABG pH 7.460 pH Units (7.350-7.450) H 06/14/19 04:45 POC ABG pCO2 53.9 (35-45) H 06/13/19 17:23 ABG pCO2 39.1 mm Hg 06/14/19 04:45 POC ABG pO2 121 (80-105) H 06/13/19 17:23 ABG pO2 107.6 mm Hg (80.0-90.0) H 06/14/19 04:45 POC ABG HCO3 27.8 (22-26 mml/L) 06/13/19 17:23 ABG HCO3 27.2 mmol/L (20.0-26.0) H 06/14/19 04:45 POC ABG Total CO2 29 (23-27mmol/L) 06/13/19 17:23 POC ABG O2 Sat 98 06/13/19 17:23 ABG O2 Saturation 98.0 % (95.0-99.0) 06/14/19 04:45 ABG O2 Content 21.2 (0.0-44) 06/14/19 04:45 POC ABG Base Excess 2 ((-2) - (+3)mmol/L) 06/13/19 17:23 ABG Base Excess 3.3 mmol/L (-2.0-3.0) H 06/14/19 04:45 ABG Hemoglobin 15.7 gm/dl (14.0-18.0) 06/14/19 04:45 ABG Carboxyhemoglobin 2.0 % (0.0-5.0) 06/14/19 04:45 ABG Methemoglobin 0.6 % (0.0-1.5) 06/14/19 04:45 VBG pH 7.310 (7.320-7.420) L 06/02/19 07:15 Oxyhemoglobin 95.5 % (95.0-99.0) 06/14/19 04:45 FiO2 30 % 06/14/19 04:45 Sodium 134 mmol/L (137-145) L 06/17/19 10:35 Potassium 4.7 mmol/L (3.6-5.0) 06/17/19 10:35 Chloride 96.2 mmol/L (98-107) L 06/17/19 10:35 Carbon Dioxide 26 mmol/L (22-30) 06/17/19 10:35 Anion Gap 17 mmol/L 06/17/19 10:35 BUN 49 mg/dL (9-20) H 06/17/19 10:35 Creatinine 0.9 mg/dL (0.8-1.5) 06/17/19 10:35 Estimated GFR > 60 ml/min 06/17/19 10:35 BUN/Creatinine Ratio 54 % 06/17/19 10:35 Glucose 119 mg/dL (75-100) H 06/17/19 10:35 POC Glucose 136 (70-105) H 06/17/19 18:36 Lactic Acid 1.10 mmol/L (0.7-2.0) 06/02/19 09:17 Calcium 7.7 mg/dL (8.4-10.2) L 06/17/19 10:35 Phosphorus 2.70 mg/dL (2.5-4.5) 06/17/19 10:35 Magnesium 1.90 mg/dL (1.7-2.3) 06/17/19 10:35 Total Bilirubin 3.30 mg/dL (0.1-1.2) H 06/16/19 06:31 Direct Bilirubin 2.4 mg/dL (0-0.2) H 06/16/19 06:31 Indirect Bilirubin 0.9 mg/dL 06/16/19 06:31 AST 38 units/L (5-40) 06/16/19 06:31 ALT 33 units/L (7-56) 06/16/19 06:31 Alkaline Phosphatase 137 units/L (35-129) H 06/16/19 06:31 Ammonia 16.0 umol/L (25-60) L 06/02/19 07:15 Lactate Dehydrogenase 214 units/L (91-180) H 06/13/19 06:11 Total Creatine Kinase 53 units/L (55-170) L 06/02/19 07:15 CK-MB (CK-2) 5.1 ng/mL (0.0-4.0) H 06/02/19 07:15 CK-MB (CK-2) Rel Index 9.6 (0-4) H 06/02/19 07:15 Troponin T 0.065 ng/mL (0.00-0.029) H 06/02/19 07:15 NT-Pro-B Natriuret Pep > 82124 pg/mL (0-900) H 06/02/19 07:15 Total Protein 5.7 g/dL (6.3-8.2) L 06/16/19 06:31 Albumin 1.8 g/dL (3.9-5) L 06/16/19 06:31 Albumin/Globulin Ratio 0.5 % 06/16/19 06:31 Prealbumin 0.106 g/L (0.200-0.400) L 06/11/19 05:58 Triglycerides 78 mg/dL (2-149) 06/11/19 05:58 Cholesterol 73 mg/dL (50-199) 06/02/19 07:15 LDL Cholesterol Direct 31 mg/dL (50-130) L 06/02/19 07:15 HDL Cholesterol 8 mg/dL (40-59) L 06/02/19 07:15 Cholesterol/HDL Ratio 9.12 % 06/02/19 07:15 Lipase 56 units/L (13-60) 06/02/19 07:15 Urine Color [place] (Yellow) 06/02/19 10:37 Urine Turbidity Clear (Clear) 06/02/19 10:37 Urine pH 5.0 (5.0-7.0) 06/02/19 10:37 Ur Specific [place] 1.019 (1.003-1.030) 06/02/19 10:37 Urine Protein <15 mg/dl mg/dL (Negative) 06/02/19 10:37 Urine Glucose (UA) 50 mg/dL (Negative) 06/02/19 10:37 Urine Ketones Neg mg/dL (Negative) 06/02/19 10:37 Urine Blood Neg (Negative) 06/02/19 10:37 Urine Nitrite Neg (Negative) 06/02/19 10:37 Urine Bilirubin Neg (Negative) 06/02/19 10:37 Urine Urobilinogen 4.0 mg/dL (<2.0) 06/02/19 10:37 Ur Leukocyte Esterase Neg (Negative) 06/02/19 10:37 Urine WBC (Auto) 2.0 /HPF (0.0-6.0) 06/02/19 10:37 Urine RBC (Auto) 2.0 /HPF (0.0-6.0) 06/02/19 10:37 Urine Bacteria (Auto) 1+ /HPF (Negative) 06/02/19 10:37 Vancomycin Trough 11.6 ug/mL (5.0-20.0) 06/09/19 08:58 Blood Type A POSITIVE 06/13/19 11:17 Antibody Screen Negative 06/13/19 11:17 Crossmatch See Detail 06/13/19 11:17 Active Medications - Current Medications Current Medications: Generic Name Dose Route Start Last Admin Trade Name Freq PRN Reason Stop Dose Admin Albuterol 2.5 mg 06/02/19 11:28 06/17/19 03:26 Proventil IH 2.5 mg Q4H PRN Administration Shortness Of Breath Albuterol/Ipratropium 1 ampul 06/16/19 14:00 06/17/19 14:28 Duoneb *Not For Prn Use* IH 1 ampul TIDRT ROSE Administration Benzonatate 100 mg 06/13/19 14:54 Tessalon Perles PO Q8HR PRN Cough Budesonide 0.5 mg 06/02/19 20:00 06/17/19 09:09 Pulmicort IH 0.5 mg Q12HRT ROSE Administration Diphenhydramine HCl 25 mg 06/16/19 18:20 Benadryl PO Q8H PRN Itching Furosemide 40 mg 06/12/19 06:00 06/17/19 05:41 Lasix PO 40 mg DAILY@0600 ROSE Administration Guaifenesin 200 mg 06/13/19 14:54 Robitussin PO Q4H PRN Cough Heparin Sodium (Porcine) 5,000 unit 06/09/19 22:00 06/17/19 14:30 Heparin SUB-Q 5,000 unit Q8HR ROSE Administration Hydromorphone HCl 0.25 mg 06/05/19 10:55 06/17/19 18:43 Dilaudid IV 0.25 mg Q3H PRN Administration Pain , Severe (7-10) Amino Acids/Electrolytes/Dextrose 1,560 mls @ 65 mls/hr 06/16/19 20:00 06/16/19 21:37 Tpn Adult IV 06/17/19 19:59 65 mls/hr DAILY@1999 [facility] Administration Protocol Amino Acids/Electrolytes/Dextrose 1,560 mls @ 65 mls/hr 06/17/19 20:00 Tpn Adult IV 06/18/19 19:59 DAILY@1999 [facility] Protocol Fat Emulsion Intravenous 250 mls @ 21 mls/hr 06/17/19 20:00 Intralipid 20% IV 06/18/19 08:00 DAILY@1999 [facility] Insulin Human Lispro 0 unit 06/08/19 06:00 06/17/19 18:28 Humalog SUB-Q Not Given Q6HR [facility] Protocol Metoprolol Tartrate 12.5 mg 06/15/19 22:00 06/17/19 09:59 Metoprolol PO 12.5 mg BID ROSE Administration Ondansetron HCl 4 mg 06/11/19 15:26 06/11/19 19:34 Zofran IV 4 mg Q6H PRN Administration Nausea And Vomiting Oxycodone/Acetaminophen 1 tab 06/16/19 17:46 Percocet 5/325 PO Q6H PRN Pain, Moderate (4-6) Pantoprazole Sodium 40 mg 06/04/19 10:00 06/17/19 09:59 Protonix IV 40 mg BID ROSE Administration Senna 17.2 mg 06/16/19 22:00 06/16/19 21:39 Senokot PO 17.2 mg QHS ROSE Administration Sodium Hypochlorite 1 applic 06/05/19 22:00 06/17/19 10:15 Dakin's Half Strength TP 1 applicatio BID ROSE Administration Nutrition/Malnutrition Assess - Dietary Evaluation Nutrition/Malnutrition Findings: Nutrition Notes Start: 06/03/19 11:22 Freq: Status: Active Protocol: Document 06/17/19 13:09 LM (Rec: 06/17/19 13:33 LM [id number]) Nutrition Notes Initial or Follow up Reassessment Current Diagnosis CKD(stage I-IV),Decubitus( Pressure Ulcer),Sepsis, Hypertension,Heart Failure Other Pertinent Diagnosis Perforated viscus S/P exp lap Current Diet CPN at 65 ml/hr + mech soft Labs/Tests Na 134 BUN 49 BG 119 Pertinent Medications Humalog Lasix Height 5 ft 7 in Weight 61.1 kg [place] Body Weight (kg) 67.27 BMI 21.1 Subjective/Other Information CPN day 14. Pt stated he drank Ensure this AM. Diet has been advanced to mech soft. Pt stated he doesn't remember what he ate today or yesterday . RN stated pt ate bites of eggs this morning and Ensure yesterday. RN stated pt does better when he is able to drink rather than chew. Percent of energy/protein needs met: 100%/100% (CPN and Ensure) Burn Absent Trauma Absent GI Symptoms None Current % PO Negligible Minimum of two criteria Yes Body Fat Depletion Mild depletion (non-severe) Muscle Mass Mild Depletion (non-severe) Fluid Accumulation Mild (non-severe) Reduced [employer] Sales Strength Measurably Reduced (severe) #1 Nutrition Diagnosis Malnutrition Diagnosis Progress(for reassessment Continues documentation) Is patient on ventilator? No Is Patient Ambulatory and/or Out of Bed No REE-([facility]-confined to bed) [phone] Calculation Used for Recommendations [facility] Additional Notes Protein: 73-92g (1.2-1.5g/kg) Fluid: 1 ml/kcal or per MD Nutrition Intervention Change Diet Order: Continue CPN and mech soft Nutrition Support: CPN at 65 ml/hr: lipids, 175 mEq Na, 47 mEq K, 5 mEq Ca, MVI Osmolality: 2042 Kcal 2,070 Protein (gm) 95 Carbohydrates (gm) 350 Fat (gm) 50 Fluid (mL) 1,810 Fiber (gm) 0 Add Supplement/Snack (indicate name/kcal Ensure Enlive TID /protein ) Provides kCal: 1,050 Provides Protein (gm) 60 Goal #1 Meet at least 60% of kcal need for oral diet and supplements before D/C of TPN Anticipated Discharge Needs: Unable to determine at this time Follow-Up By: 12/10/19 Additional Comments Labs in AM: BMP, Mg, Phos Follow for intakes, possible TPN D/C
[2019-06-17] MEDS ORDERED: TOTAL PARENTERAL NUTRITION 1,560 ML IV SCH (20:00)
[2019-06-17] MEDS ORDERED: FAT EMULSIONS 20% 250 ML IV SCH (20:00)
[2019-06-17] MEDS: SENNOSIDES 8.6 MG TAB PO SCH (21:44)
[2019-06-17] MEDS: oxyCODONE /ACETAMINOPHEN 5-325MG TAB PO PRN (21:49)
[2019-06-18] MEDS: INSULIN LISPRO 100 UNIT/ML SUB-Q SCH ×4 (01:46→18:18)
[2019-06-18] MEDS: SODIUM HYPOCHLORITE, DAKIN'S 1/2 STRENGTH (0.25%) 473 ML TOPICAL SOLN TP SCH ×3 (02:40→23:14)
[2019-06-18] MEDS: HYDROmorphone 1 MG/1 ML INJ IV PRN ×4 (05:32→23:19)
[2019-06-18] MEDS: HEPARIN 5,000 UNIT/1 ML VIAL SUB-Q SCH ×3 (05:33→23:14)
[2019-06-18] MEDS: FUROSEMIDE 40 MG TAB PO SCH (05:34)
[2019-06-18] MEDS: METOPROLOL TARTRATE 25 MG TAB PO SCH ×2 (09:29→23:11)
[2019-06-18] MEDS: PANTOPRAZOLE 40 MG INJ IV SCH (09:30)
--- NOTE | 2019-06-18 10:16 | Progress Note ---
Assessment and Plan Pt now on mechanical soft diet. Cont present cardiac management. Resume remote telemetry. The patient has been seen in conjunction with Dr. Jessica who agrees with the assessment and plan of care. - Patient Problems (1) Pneumoperitoneum Current Visit: Yes Status: Acute (2) Sepsis Current Visit: Yes Status: Acute Qualifiers: Sepsis type: sepsis due to unspecified organism Sepsis acute organ dysfunction status: unspecified Qualified Code(s): A41.9 - Sepsis, unspecified organism (3) Chronic HFrEF (heart failure with reduced ejection fraction) Current Visit: Yes Status: Chronic (4) Nonischemic cardiomyopathy Current Visit: Yes Status: Chronic convert IV lopressor (5) Sinus node dysfunction Current Visit: Yes Status: Chronic (6) NSVT (nonsustained ventricular tachycardia) Current Visit: Yes Status: Chronic (7) HTN (hypertension) Current Visit: Yes Status: Chronic Qualifiers: Hypertension type: essential hypertension Qualified Code(s): I10 - Essential (primary) hypertension (8) Pulmonary hypertension Current Visit: Yes Status: Chronic (9) PAD (peripheral artery disease) Current Visit: Yes Status: Chronic (10) Anemia Current Visit: Yes Status: Acute (10) Acute respiratory failure Current Visit: Yes Status: Acute Subjective Date of service: 06/18/19 Principal diagnosis: elevated LFTs Interval history: pt alert, oriented, no current cardiac complaints. not on telemetry. Objective Last Vital Signs Temp 97.7 F 06/18/19 05:09 Pulse 105 H 06/18/19 05:09 Resp 18 06/18/19 05:09 BP 128/89 06/18/19 05:09 Pulse Ox 94 06/18/19 05:09 - Physical Examination General: No Apparent Distress, Other HEENT: Positive: EOMI, Normocephaly, Mucus Membranes Moist Neck: Positive: neck supple, trachea midline, Carotid Upstroke (full) Cardiac: Positive: Reg Rate and Rhythm, S1/S2 Lungs: Positive: Decreased Breath Sounds Neuro: Positive: Grossly Intact Abdomen: Positive: Soft, Other (abdominal binder in place) /Rectal: Other (Urine dark yellow) Skin: Positive: Other (abdominal surgical wounds, multiple wounds on both lower extremities with areas of ischemic ulceration.) Musculoskeletal: Normal Range of Motion Extremities: Present: lower extr. pulses (LLE difficult to palpate d/t wound dressing and ischemic ulceration), Other (LLE - pulse difficult to palpate d/t wounds ) - Labs and Meds Comprehensive Metabolic Panel 06/17/19 Range/Units 10:35 Sodium 134 L (137-145) mmol/L Potassium 4.7 (3.6-5.0) mmol/L Chloride 96.2 L (98-107) mmol/L Carbon Dioxide 26 (22-30) mmol/L BUN 49 H (9-20) mg/dL Creatinine 0.9 (0.8-1.5) mg/dL Glucose 119 H (75-100) mg/dL Calcium 7.7 L (8.4-10.2) mg/dL - Imaging and Cardiology EKG: image reviewed Echo: report reviewed (02/28/19 showed EF of 10-15%, dilation of all chambers, moderate AR, moderate to severe TR and RV hypokinesis. ) Cardiac cath: report reviewed (04/2017 showed patent coronaries, EF 10-15%. ) - EKG Sinus rhythms and dysrhythmias: sinus rhythm Chamber hypertrophy or enlargement: left ventricular hypertro Repolarization changes or abnormalities: repolarization abn secondary to ventricular hypertrophy Myocardial infarction: septal RI (old age or ind
[2019-06-18] MEDS: oxyCODONE /ACETAMINOPHEN 5-325MG TAB PO PRN ×2 (10:23→17:39)
[2019-06-18 12:05] LABS: Alanine Aminotransferase 38 units/L (7-56); Albumin 2.1 g/dL (3.9-5); BUN/Creatinine Ratio 51; Blood Urea Nitrogen 51 mg/dL (9-20); Calcium 7.8 mg/dL (8.4-10.2); Hemolysis Index 1
--- NOTE | 2019-06-18 12:49 | Progress Note ---
Assessment and Plan 06/18: No new pulmonary recs. Continue current therapy and see below. Ab Binder on at all times. Very important. Continue COPD regimen WIll continue to follow along with you. Prognosis remains guarded to poor. Subjective Date of service: 06/18/19 Principal diagnosis: elevated LFTs Interval history: No acute events. Objective Vital Signs - 12hr 06/18/19 05:09 Temperature 97.7 F Pulse Rate 105 H Respiratory 18 Rate Blood Pressure 128/89 [Right] O2 Sat by Pulse 94 Oximetry Constitutional: no acute distress, alert Eyes: non-icteric ENT: oropharynx moist Neck: supple Effort: normal Ascultation: Bilateral: clear, other (coarse BS bilaterally) Cardiovascular: regular rate and rhythm (no mrg) Gastrointestinal: absent bowel sounds, non-tender Integumentary: other (necrotic ulcers lower extremities) Extremities: no cyanosis, edema (1+ generalized edema) Neurologic: normal mental status, non-focal exam Psychiatric: mood appropriate, affect normal CBC and BMP: 06/14/19 05:45 06/18/19 10:38 ABG, PT/INR, D-dimer: ABG POC ABG pH 7.320 (7.35-7.45) L 06/13/19 17:23 ABG pH 7.460 pH Units (7.350-7.450) H 06/14/19 04:45 POC ABG pCO2 53.9 (35-45) H 06/13/19 17:23 ABG pCO2 39.1 mm Hg 06/14/19 04:45 POC ABG pO2 121 (80-105) H 06/13/19 17:23 ABG pO2 107.6 mm Hg (80.0-90.0) H 06/14/19 04:45 POC ABG HCO3 27.8 (22-26 mml/L) 06/13/19 17:23 POC ABG Total CO2 29 (23-27mmol/L) 06/13/19 17:23 POC ABG O2 Sat 98 06/13/19 17:23 ABG O2 Saturation 98.0 % (95.0-99.0) 06/14/19 04:45 PT/INR, D-dimer PT 17.9 Sec. (12.2-14.9) H 06/02/19 07:15 INR 1.50 (0.87-1.13) H 06/02/19 07:15 Abnormal lab findings: Abnormal Labs 06/02/19 06/02/19 06/02/19 07:15 07:15 07:15 WBC 21.0 H RBC 5.17 H Hgb Hct MCH 27 L RDW 23.8 H Lymph % (Auto) [place] % (Auto) Baso % (Auto) [place] # Baso # Seg Neutrophils % Seg Neuts % (Manual) 97.0 H Lymphocytes % (Manual) 1.0 L Nucleated RBC % 3.0 H Seg Neutrophils # Seg Neutrophils # Man 20.4 H Lymphocytes # (Manual) 0.2 L Basophils # (Manual) PT 17.9 H INR 1.50 H POC ABG pH ABG pH POC ABG pCO2 POC ABG pO2 ABG pO2 ABG HCO3 ABG Base Excess VBG pH Sodium 130 L Potassium Chloride 97.1 L Carbon Dioxide 16 L BUN 47 H Creatinine Glucose 139 H POC Glucose Lactic Acid Calcium Phosphorus Magnesium Total Bilirubin 6.40 H Direct Bilirubin 4.5 H AST 50 H ALT Alkaline Phosphatase 179 H Ammonia Lactate Dehydrogenase Total Creatine Kinase 53 L CK-MB (CK-2) 5.1 H CK-MB (CK-2) Rel Index 9.6 H Troponin T NT-Pro-B Natriuret Pep > 34089 H Total Protein 5.8 L Albumin 2.1 L Prealbumin LDL Cholesterol Direct HDL Cholesterol Vancomycin Trough Crossmatch 06/02/19 06/02/19 06/02/19 07:15 07:15 07:15 WBC RBC Hgb Hct MCH RDW Lymph % (Auto) [place] % (Auto) Baso % (Auto) [place] # Baso # Seg Neutrophils % Seg Neuts % (Manual) Lymphocytes % (Manual) Nucleated RBC % Seg Neutrophils # Seg Neutrophils # Man Lymphocytes # (Manual) Basophils # (Manual) PT INR POC ABG pH ABG pH POC ABG pCO2 POC ABG pO2 ABG pO2 ABG HCO3 ABG Base Excess VBG pH 7.310 L Sodium Potassium Chloride Carbon Dioxide BUN Creatinine Glucose POC Glucose Lactic Acid 2.40 H* Calcium Phosphorus Magnesium Total Bilirubin Direct Bilirubin AST ALT Alkaline Phosphatase Ammonia 16.0 L Lactate Dehydrogenase Total Creatine Kinase CK-MB (CK-2) CK-MB (CK-2) Rel Index Troponin T NT-Pro-B Natriuret Pep Total Protein Albumin Prealbumin LDL Cholesterol Direct HDL Cholesterol Vancomycin Trough Crossmatch 06/02/19 06/02/19 06/02/19 07:15 15:33 15:53 WBC RBC Hgb Hct MCH RDW Lymph % (Auto) [place] % (Auto) Baso % (Auto) [place] # Baso # Seg Neutrophils % Seg Neuts % (Manual) Lymphocytes % (Manual) Nucleated RBC % Seg Neutrophils # Seg Neutrophils # Man Lymphocytes # (Manual) Basophils # (Manual) PT INR POC ABG pH 7.229 L ABG pH POC ABG pCO2 49.5 H POC ABG pO2 ABG pO2 ABG HCO3 ABG Base Excess VBG pH Sodium Potassium Chloride Carbon Dioxide BUN Creatinine Glucose POC Glucose 66 L Lactic Acid Calcium Phosphorus Magnesium Total Bilirubin Direct Bilirubin AST ALT Alkaline Phosphatase Ammonia Lactate Dehydrogenase Total Creatine Kinase CK-MB (CK-2) CK-MB (CK-2) Rel Index Troponin T 0.065 H NT-Pro-B Natriuret Pep Total Protein Albumin Prealbumin LDL Cholesterol Direct 31 L HDL Cholesterol 8 L Vancomycin Trough Crossmatch 06/02/19 06/02/19 06/03/19 16:40 17:10 04:06 WBC RBC Hgb Hct MCH RDW Lymph % (Auto) [place] % (Auto) Baso % (Auto) [place] # Baso # Seg Neutrophils % Seg Neuts % (Manual) Lymphocytes % (Manual) Nucleated RBC % Seg Neutrophils # Seg Neutrophils # Man Lymphocytes # (Manual) Basophils # (Manual) PT INR POC ABG pH 7.259 L ABG pH POC ABG pCO2 33.9 L POC ABG pO2 221 H 146 H ABG pO2 ABG HCO3 ABG Base Excess VBG pH Sodium Potassium Chloride Carbon Dioxide BUN Creatinine Glucose POC Glucose 151 H Lactic Acid Calcium Phosphorus Magnesium Total Bilirubin Direct Bilirubin AST ALT Alkaline Phosphatase Ammonia Lactate Dehydrogenase Total Creatine Kinase CK-MB (CK-2) CK-MB (CK-2) Rel Index Troponin T NT-Pro-B Natriuret Pep Total Protein Albumin Prealbumin LDL Cholesterol Direct HDL Cholesterol Vancomycin Trough Crossmatch 06/03/19 06/03/19 06/03/19 04:41 04:41 17:23 WBC 17.5 H RBC Hgb Hct MCH 27 L RDW 25.0 H Lymph % (Auto) [place] % (Auto) Baso % (Auto) [place] # Baso # Seg Neutrophils % Seg Neuts % (Manual) 96.0 H Lymphocytes % (Manual) 0 L Nucleated RBC % 1.0 H Seg Neutrophils # Seg Neutrophils # Man 16.8 H Lymphocytes # (Manual) 0.0 L Basophils # (Manual) PT INR POC ABG pH ABG pH POC ABG pCO2 POC ABG pO2 ABG pO2 ABG HCO3 ABG Base Excess VBG pH Sodium Potassium Chloride Carbon Dioxide 17 L BUN 42 H Creatinine Glucose 59 L POC Glucose 113 H Lactic Acid Calcium Phosphorus Magnesium Total Bilirubin 7.00 H Direct Bilirubin AST ALT Alkaline Phosphatase 153 H Ammonia Lactate Dehydrogenase Total Creatine Kinase CK-MB (CK-2) CK-MB (CK-2) Rel Index Troponin T NT-Pro-B Natriuret Pep Total Protein 5.9 L Albumin 1.7 L Prealbumin LDL Cholesterol Direct HDL Cholesterol Vancomycin Trough Crossmatch 06/03/19 06/04/19 06/04/19 23:37 05:10 05:10 WBC 16.7 H RBC Hgb Hct MCH 27 L RDW 24.5 H Lymph % (Auto) [place] % (Auto) Baso % (Auto) [place] # Baso # Seg Neutrophils % Seg Neuts % (Manual) 94.0 H Lymphocytes % (Manual) 3.0 L Nucleated RBC % Seg Neutrophils # Seg Neutrophils # Man 15.7 H Lymphocytes # (Manual) 0.5 L Basophils # (Manual) PT INR POC ABG pH ABG pH POC ABG pCO2 POC ABG pO2 ABG pO2 ABG HCO3 ABG Base Excess VBG pH Sodium Potassium Chloride Carbon Dioxide BUN 39 H Creatinine Glucose 136 H POC Glucose 126 H Lactic Acid Calcium 8.3 L Phosphorus Magnesium 1.30 L Total Bilirubin 7.70 H Direct Bilirubin AST ALT Alkaline Phosphatase 140 H Ammonia Lactate Dehydrogenase Total Creatine Kinase CK-MB (CK-2) CK-MB (CK-2) Rel Index Troponin T NT-Pro-B Natriuret Pep Total Protein 5.6 L Albumin 1.7 L Prealbumin LDL Cholesterol Direct HDL Cholesterol Vancomycin Trough Crossmatch 06/04/19 06/04/19 06/04/19 05:44 13:50 18:05 WBC RBC Hgb Hct MCH RDW Lymph % (Auto) [place] % (Auto) Baso % (Auto) [place] # Baso # Seg Neutrophils % Seg Neuts % (Manual) Lymphocytes % (Manual) Nucleated RBC % Seg Neutrophils # Seg Neutrophils # Man Lymphocytes # (Manual) Basophils # (Manual) PT INR POC ABG pH ABG pH POC ABG pCO2 POC ABG pO2 ABG pO2 ABG HCO3 ABG Base Excess VBG pH Sodium Potassium Chloride Carbon Dioxide BUN Creatinine Glucose POC Glucose 124 H 137 H 120 H Lactic Acid Calcium Phosphorus Magnesium Total Bilirubin Direct Bilirubin AST ALT Alkaline Phosphatase Ammonia Lactate Dehydrogenase Total Creatine Kinase CK-MB (CK-2) CK-MB (CK-2) Rel Index Troponin T NT-Pro-B Natriuret Pep Total Protein Albumin Prealbumin LDL Cholesterol Direct HDL Cholesterol Vancomycin Trough Crossmatch 06/05/19 06/05/19 06/05/19 00:58 04:20 04:20 WBC 15.0 H RBC Hgb Hct MCH 27 L RDW 25.0 H Lymph % (Auto) [place] % (Auto) Baso % (Auto) [place] # Baso # Seg Neutrophils % Seg Neuts % (Manual) Lymphocytes % (Manual) Nucleated RBC % Seg Neutrophils # Seg Neutrophils # Man Lymphocytes # (Manual) Basophils # (Manual) PT INR POC ABG pH ABG pH POC ABG pCO2 POC ABG pO2 ABG pO2 ABG HCO3 ABG Base Excess VBG pH Sodium Potassium Chloride Carbon Dioxide BUN 52 H Creatinine Glucose 137 H POC Glucose 114 H Lactic Acid Calcium 7.8 L Phosphorus Magnesium Total Bilirubin Direct Bilirubin AST ALT Alkaline Phosphatase Ammonia Lactate Dehydrogenase Total Creatine Kinase CK-MB (CK-2) CK-MB (CK-2) Rel Index Troponin T NT-Pro-B Natriuret Pep Total Protein Albumin Prealbumin LDL Cholesterol Direct HDL Cholesterol Vancomycin Trough Crossmatch 06/05/19 06/05/19 06/05/19 05:39 05:45 09:45 WBC RBC Hgb Hct MCH RDW Lymph % (Auto) [place] % (Auto) Baso % (Auto) [place] # Baso # Seg Neutrophils % Seg Neuts % (Manual) Lymphocytes % (Manual) Nucleated RBC % Seg Neutrophils # Seg Neutrophils # Man Lymphocytes # (Manual) Basophils # (Manual) PT INR POC ABG pH ABG pH POC ABG pCO2 POC ABG pO2 108 H ABG pO2 ABG HCO3 ABG Base Excess VBG pH Sodium Potassium Chloride Carbon Dioxide BUN Creatinine Glucose POC Glucose 111 H Lactic Acid Calcium Phosphorus Magnesium Total Bilirubin Direct Bilirubin AST ALT Alkaline Phosphatase Ammonia Lactate Dehydrogenase Total Creatine Kinase CK-MB (CK-2) CK-MB (CK-2) Rel Index Troponin T NT-Pro-B Natriuret Pep Total Protein Albumin Prealbumin LDL Cholesterol Direct HDL Cholesterol Vancomycin Trough 20.1 H Crossmatch 06/05/19 06/05/19 06/06/19 13:25 18:27 00:01 WBC RBC Hgb Hct MCH RDW Lymph % (Auto) [place] % (Auto) Baso % (Auto) [place] # Baso # Seg Neutrophils % Seg Neuts % (Manual) Lymphocytes % (Manual) Nucleated RBC % Seg Neutrophils # Seg Neutrophils # Man Lymphocytes # (Manual) Basophils # (Manual) PT INR POC ABG pH ABG pH POC ABG pCO2 POC ABG pO2 ABG pO2 ABG HCO3 ABG Base Excess VBG pH Sodium Potassium Chloride Carbon Dioxide BUN Creatinine Glucose POC Glucose 152 H 194 H 153 H Lactic Acid Calcium Phosphorus Magnesium Total Bilirubin Direct Bilirubin AST ALT Alkaline Phosphatase Ammonia Lactate Dehydrogenase Total Creatine Kinase CK-MB (CK-2) CK-MB (CK-2) Rel Index Troponin T NT-Pro-B Natriuret Pep Total Protein Albumin Prealbumin LDL Cholesterol Direct HDL Cholesterol Vancomycin Trough Crossmatch 06/06/19 06/06/19 06/06/19 04:20 05:45 12:32 WBC RBC Hgb Hct MCH RDW Lymph % (Auto) [place] % (Auto) Baso % (Auto) [place] # Baso # Seg Neutrophils % Seg Neuts % (Manual) Lymphocytes % (Manual) Nucleated RBC % Seg Neutrophils # Seg Neutrophils # Man Lymphocytes # (Manual) Basophils # (Manual) PT INR POC ABG pH ABG pH POC ABG pCO2 POC ABG pO2 ABG pO2 ABG HCO3 ABG Base Excess VBG pH Sodium Potassium Chloride Carbon Dioxide BUN 62 H Creatinine Glucose 141 H POC Glucose 161 H 131 H Lactic Acid Calcium 7.7 L Phosphorus 2.40 L Magnesium Total Bilirubin Direct Bilirubin AST ALT Alkaline Phosphatase Ammonia Lactate Dehydrogenase Total Creatine Kinase CK-MB (CK-2) CK-MB (CK-2) Rel Index Troponin T NT-Pro-B Natriuret Pep Total Protein Albumin Prealbumin LDL Cholesterol Direct HDL Cholesterol Vancomycin Trough Crossmatch 06/07/19 06/07/19 06/07/19 02:07 05:36 05:36 WBC 25.3 H RBC Hgb 10.8 L Hct 33.7 L MCH 27 L RDW 26.7 H Lymph % (Auto) [place] % (Auto) Baso % (Auto) [place] # Baso # Seg Neutrophils % Seg Neuts % (Manual) Lymphocytes % (Manual) Nucleated RBC % Seg Neutrophils # Seg Neutrophils # Man Lymphocytes # (Manual) Basophils # (Manual) PT INR POC ABG pH ABG pH POC ABG pCO2 POC ABG pO2 ABG pO2 ABG HCO3 ABG Base Excess VBG pH Sodium 135 L Potassium Chloride 93.6 L Carbon Dioxide BUN 58 H Creatinine Glucose 131 H POC Glucose 165 H Lactic Acid Calcium 8.0 L Phosphorus Magnesium Total Bilirubin Direct Bilirubin AST ALT Alkaline Phosphatase Ammonia Lactate Dehydrogenase Total Creatine Kinase CK-MB (CK-2) CK-MB (CK-2) Rel Index Troponin T NT-Pro-B Natriuret Pep Total Protein Albumin Prealbumin LDL Cholesterol Direct HDL Cholesterol Vancomycin Trough Crossmatch 06/07/19 06/07/19 06/07/19 09:44 18:05 23:51 WBC RBC Hgb Hct MCH RDW Lymph % (Auto) [place] % (Auto) Baso % (Auto) [place] # Baso # Seg Neutrophils % Seg Neuts % (Manual) Lymphocytes % (Manual) Nucleated RBC % Seg Neutrophils # Seg Neutrophils # Man Lymphocytes # (Manual) Basophils # (Manual) PT INR POC ABG pH 7.508 H ABG pH POC ABG pCO2 POC ABG pO2 75 L ABG pO2 ABG HCO3 ABG Base Excess VBG pH Sodium Potassium Chloride Carbon Dioxide BUN Creatinine Glucose POC Glucose 137 H 180 H Lactic Acid Calcium Phosphorus Magnesium Total Bilirubin Direct Bilirubin AST ALT Alkaline Phosphatase Ammonia Lactate Dehydrogenase Total Creatine Kinase CK-MB (CK-2) CK-MB (CK-2) Rel Index Troponin T NT-Pro-B Natriuret Pep Total Protein Albumin Prealbumin LDL Cholesterol Direct HDL Cholesterol Vancomycin Trough Crossmatch 06/08/19 06/08/19 06/08/19 05:07 05:07 06:26 WBC 25.1 H RBC 3.21 L Hgb 8.8 L Hct 27.3 L D MCH RDW 27.7 H Lymph % (Auto) [place] % (Auto) Baso % (Auto) [place] # Baso # Seg Neutrophils % Seg Neuts % (Manual) Lymphocytes % (Manual) Nucleated RBC % Seg Neutrophils # Seg Neutrophils # Man Lymphocytes # (Manual) Basophils # (Manual) PT INR POC ABG pH ABG pH POC ABG pCO2 POC ABG pO2 ABG pO2 ABG HCO3 ABG Base Excess VBG pH Sodium 134 L Potassium Chloride 97.2 L Carbon Dioxide BUN 49 H Creatinine 0.7 L Glucose 144 H POC Glucose 149 H Lactic Acid Calcium 7.7 L Phosphorus Magnesium Total Bilirubin Direct Bilirubin AST ALT Alkaline Phosphatase Ammonia Lactate Dehydrogenase Total Creatine Kinase CK-MB (CK-2) CK-MB (CK-2) Rel Index Troponin T NT-Pro-B Natriuret Pep Total Protein Albumin Prealbumin LDL Cholesterol Direct HDL Cholesterol Vancomycin Trough Crossmatch 06/08/19 06/08/19 06/09/19 11:18 17:43 00:04 WBC RBC Hgb Hct MCH RDW Lymph % (Auto) [place] % (Auto) Baso % (Auto) [place] # Baso # Seg Neutrophils % Seg Neuts % (Manual) Lymphocytes % (Manual) Nucleated RBC % Seg Neutrophils # Seg Neutrophils # Man Lymphocytes # (Manual) Basophils # (Manual) PT INR POC ABG pH ABG pH POC ABG pCO2 POC ABG pO2 ABG pO2 ABG HCO3 ABG Base Excess VBG pH Sodium Potassium Chloride Carbon Dioxide BUN Creatinine Glucose POC Glucose 134 H 153 H 161 H Lactic Acid Calcium Phosphorus Magnesium Total Bilirubin Direct Bilirubin AST ALT Alkaline Phosphatase Ammonia Lactate Dehydrogenase Total Creatine Kinase CK-MB (CK-2) CK-MB (CK-2) Rel Index Troponin T NT-Pro-B Natriuret Pep Total Protein Albumin Prealbumin LDL Cholesterol Direct HDL Cholesterol Vancomycin Trough Crossmatch 06/09/19 06/09/19 06/09/19 05:51 08:58 11:53 WBC RBC Hgb Hct MCH RDW Lymph % (Auto) [place] % (Auto) Baso % (Auto) [place] # Baso # Seg Neutrophils % Seg Neuts % (Manual) Lymphocytes % (Manual) Nucleated RBC % Seg Neutrophils # Seg Neutrophils # Man Lymphocytes # (Manual) Basophils # (Manual) PT INR POC ABG pH ABG pH POC ABG pCO2 POC ABG pO2 ABG pO2 ABG HCO3 ABG Base Excess VBG pH Sodium Potassium Chloride 97.1 L Carbon Dioxide BUN 40 H Creatinine 0.6 L Glucose 161 H POC Glucose 183 H 189 H Lactic Acid Calcium 7.9 L Phosphorus Magnesium Total Bilirubin Direct Bilirubin AST ALT Alkaline Phosphatase Ammonia Lactate Dehydrogenase Total Creatine Kinase CK-MB (CK-2) CK-MB (CK-2) Rel Index Troponin T NT-Pro-B Natriuret Pep Total Protein Albumin Prealbumin LDL Cholesterol Direct HDL Cholesterol Vancomycin Trough Crossmatch 06/09/19 06/10/19 06/10/19 17:30 05:00 08:36 WBC RBC Hgb Hct MCH RDW Lymph % (Auto) [place] % (Auto) Baso % (Auto) [place] # Baso # Seg Neutrophils % Seg Neuts % (Manual) Lymphocytes % (Manual) Nucleated RBC % Seg Neutrophils # Seg Neutrophils # Man Lymphocytes # (Manual) Basophils # (Manual) PT INR POC ABG pH ABG pH POC ABG pCO2 POC ABG pO2 ABG pO2 ABG HCO3 ABG Base Excess VBG pH Sodium Potassium Chloride Carbon Dioxide BUN Creatinine Glucose POC Glucose 145 H 173 H 119 H Lactic Acid Calcium Phosphorus Magnesium Total Bilirubin Direct Bilirubin AST ALT Alkaline Phosphatase Ammonia Lactate Dehydrogenase Total Creatine Kinase CK-MB (CK-2) CK-MB (CK-2) Rel Index Troponin T NT-Pro-B Natriuret Pep Total Protein Albumin Prealbumin LDL Cholesterol Direct HDL Cholesterol Vancomycin Trough Crossmatch 06/10/19 06/10/19 06/10/19 09:25 09:25 09:25 WBC 18.9 H RBC 2.61 L Hgb 7.3 L Hct 22.8 L MCH RDW 29.2 H Lymph % (Auto) [place] % (Auto) Baso % (Auto) [place] # Baso # Seg Neutrophils % Seg Neuts % (Manual) Lymphocytes % (Manual) Nucleated RBC % Seg Neutrophils # Seg Neutrophils # Man Lymphocytes # (Manual) Basophils # (Manual) PT INR POC ABG pH ABG pH POC ABG pCO2 POC ABG pO2 ABG pO2 ABG HCO3 ABG Base Excess VBG pH Sodium Potassium Chloride 95.5 L Carbon Dioxide 31 H BUN 38 H Creatinine Glucose 115 H POC Glucose Lactic Acid Calcium 7.8 L Phosphorus Magnesium Total Bilirubin 4.80 H Direct Bilirubin 3.7 H AST 127 H ALT 93 H Alkaline Phosphatase 180 H Ammonia Lactate Dehydrogenase Total Creatine Kinase CK-MB (CK-2) CK-MB (CK-2) Rel Index Troponin T NT-Pro-B Natriuret Pep Total Protein 5.3 L Albumin 1.5 L Prealbumin LDL Cholesterol Direct HDL Cholesterol Vancomycin Trough Crossmatch 06/10/19 06/10/19 06/10/19 11:23 16:38 21:11 WBC RBC Hgb Hct MCH RDW Lymph % (Auto) [place] % (Auto) Baso % (Auto) [place] # Baso # Seg Neutrophils % Seg Neuts % (Manual) Lymphocytes % (Manual) Nucleated RBC % Seg Neutrophils # Seg Neutrophils # Man Lymphocytes # (Manual) Basophils # (Manual) PT INR POC ABG pH ABG pH POC ABG pCO2 POC ABG pO2 ABG pO2 ABG HCO3 ABG Base Excess VBG pH Sodium Potassium Chloride Carbon Dioxide BUN Creatinine Glucose POC Glucose 175 H 164 H 159 H Lactic Acid Calcium Phosphorus Magnesium Total Bilirubin Direct Bilirubin AST ALT Alkaline Phosphatase Ammonia Lactate Dehydrogenase Total Creatine Kinase CK-MB (CK-2) CK-MB (CK-2) Rel Index Troponin T NT-Pro-B Natriuret Pep Total Protein Albumin Prealbumin LDL Cholesterol Direct HDL Cholesterol Vancomycin Trough Crossmatch 06/10/19 06/11/19 06/11/19 23:23 00:22 05:58 WBC RBC Hgb Hct MCH RDW Lymph % (Auto) [place] % (Auto) Baso % (Auto) [place] # Baso # Seg Neutrophils % Seg Neuts % (Manual) Lymphocytes % (Manual) Nucleated RBC % Seg Neutrophils # Seg Neutrophils # Man Lymphocytes # (Manual) Basophils # (Manual) PT INR POC ABG pH ABG pH POC ABG pCO2 POC ABG pO2 ABG pO2 ABG HCO3 ABG Base Excess VBG pH Sodium 135 L Potassium Chloride 95.7 L Carbon Dioxide 33 H BUN 36 H Creatinine 0.7 L Glucose 155 H POC Glucose 188 H Lactic Acid Calcium 7.7 L Phosphorus Magnesium Total Bilirubin 4.10 H Direct Bilirubin AST 89 H ALT 77 H Alkaline Phosphatase 154 H Ammonia Lactate Dehydrogenase Total Creatine Kinase CK-MB (CK-2) CK-MB (CK-2) Rel Index Troponin T NT-Pro-B Natriuret Pep Total Protein 5.3 L Albumin 1.7 L Prealbumin 0.106 L LDL Cholesterol Direct HDL Cholesterol Vancomycin Trough Crossmatch 06/11/19 06/11/19 06/11/19 06:53 11:17 16:21 WBC RBC Hgb Hct MCH RDW Lymph % (Auto) [place] % (Auto) Baso % (Auto) [place] # Baso # Seg Neutrophils % Seg Neuts % (Manual) Lymphocytes % (Manual) Nucleated RBC % Seg Neutrophils # Seg Neutrophils # Man Lymphocytes # (Manual) Basophils # (Manual) PT INR POC ABG pH ABG pH POC ABG pCO2 POC ABG pO2 ABG pO2 ABG HCO3 ABG Base Excess VBG pH Sodium Potassium Chloride Carbon Dioxide BUN Creatinine Glucose POC Glucose 198 H 157 H 190 H Lactic Acid Calcium Phosphorus Magnesium Total Bilirubin Direct Bilirubin AST ALT Alkaline Phosphatase Ammonia Lactate Dehydrogenase Total Creatine Kinase CK-MB (CK-2) CK-MB (CK-2) Rel Index Troponin T NT-Pro-B Natriuret Pep Total Protein Albumin Prealbumin LDL Cholesterol Direct HDL Cholesterol Vancomycin Trough Crossmatch 06/12/19 06/12/19 06/12/19 00:17 05:27 06:27 WBC RBC Hgb Hct MCH RDW Lymph % (Auto) [place] % (Auto) Baso % (Auto) [place] # Baso # Seg Neutrophils % Seg Neuts % (Manual) Lymphocytes % (Manual) Nucleated RBC % Seg Neutrophils # Seg Neutrophils # Man Lymphocytes # (Manual) Basophils # (Manual) PT INR POC ABG pH ABG pH POC ABG pCO2 POC ABG pO2 ABG pO2 ABG HCO3 ABG Base Excess VBG pH Sodium 136 L Potassium Chloride 95.6 L Carbon Dioxide BUN 39 H Creatinine Glucose 144 H POC Glucose 139 H 169 H Lactic Acid Calcium 8.3 L Phosphorus Magnesium Total Bilirubin Direct Bilirubin AST ALT Alkaline Phosphatase Ammonia Lactate Dehydrogenase Total Creatine Kinase CK-MB (CK-2) CK-MB (CK-2) Rel Index Troponin T NT-Pro-B Natriuret Pep Total Protein Albumin Prealbumin LDL Cholesterol Direct HDL Cholesterol Vancomycin Trough Crossmatch 06/12/19 06/13/19 06/13/19 11:52 00:27 06:00 WBC RBC Hgb Hct MCH RDW Lymph % (Auto) [place] % (Auto) Baso % (Auto) [place] # Baso # Seg Neutrophils % Seg Neuts % (Manual) Lymphocytes % (Manual) Nucleated RBC % Seg Neutrophils # Seg Neutrophils # Man Lymphocytes # (Manual) Basophils # (Manual) PT INR POC ABG pH ABG pH POC ABG pCO2 POC ABG pO2 ABG pO2 ABG HCO3 ABG Base Excess VBG pH Sodium Potassium Chloride Carbon Dioxide BUN Creatinine Glucose POC Glucose 146 H 151 H 133 H Lactic Acid Calcium Phosphorus Magnesium Total Bilirubin Direct Bilirubin AST ALT Alkaline Phosphatase Ammonia Lactate Dehydrogenase Total Creatine Kinase CK-MB (CK-2) CK-MB (CK-2) Rel Index Troponin T NT-Pro-B Natriuret Pep Total Protein Albumin Prealbumin LDL Cholesterol Direct HDL Cholesterol Vancomycin Trough Crossmatch 06/13/19 06/13/19 06/13/19 06:11 06:11 06:11 WBC 17.0 H RBC 2.32 L Hgb 6.8 L Hct 20.9 L MCH RDW 29.2 H Lymph % (Auto) [place] % (Auto) Baso % (Auto) [place] # Baso # Seg Neutrophils % Seg Neuts % (Manual) 92.0 H Lymphocytes % (Manual) 2.0 L Nucleated RBC % Seg Neutrophils # Seg Neutrophils # Man 15.6 H Lymphocytes # (Manual) 0.3 L Basophils # (Manual) 0.2 H PT INR POC ABG pH ABG pH POC ABG pCO2 POC ABG pO2 ABG pO2 ABG HCO3 ABG Base Excess VBG pH Sodium 134 L Potassium Chloride 96.1 L Carbon Dioxide BUN 42 H Creatinine Glucose 126 H POC Glucose Lactic Acid Calcium 8.0 L Phosphorus Magnesium Total Bilirubin Direct Bilirubin AST ALT Alkaline Phosphatase Ammonia Lactate Dehydrogenase 214 H Total Creatine Kinase CK-MB (CK-2) CK-MB (CK-2) Rel Index Troponin T NT-Pro-B Natriuret Pep Total Protein Albumin Prealbumin LDL Cholesterol Direct HDL Cholesterol Vancomycin Trough Crossmatch 06/13/19 06/13/19 06/13/19 11:17 11:25 16:57 WBC RBC Hgb Hct MCH RDW Lymph % (Auto) [place] % (Auto) Baso % (Auto) [place] # Baso # Seg Neutrophils % Seg Neuts % (Manual) Lymphocytes % (Manual) Nucleated RBC % Seg Neutrophils # Seg Neutrophils # Man Lymphocytes # (Manual) Basophils # (Manual) PT INR POC ABG pH ABG pH POC ABG pCO2 POC ABG pO2 ABG pO2 ABG HCO3 ABG Base Excess VBG pH Sodium Potassium Chloride Carbon Dioxide BUN Creatinine Glucose POC Glucose 185 H 224 H Lactic Acid Calcium Phosphorus Magnesium Total Bilirubin Direct Bilirubin AST ALT Alkaline Phosphatase Ammonia Lactate Dehydrogenase Total Creatine Kinase CK-MB (CK-2) CK-MB (CK-2) Rel Index Troponin T NT-Pro-B Natriuret Pep Total Protein Albumin Prealbumin LDL Cholesterol Direct HDL Cholesterol Vancomycin Trough Crossmatch See Detail 06/13/19 06/13/19 06/14/19 17:05 17:23 04:45 WBC RBC Hgb 9.2 L Hct 28.9 L D MCH RDW Lymph % (Auto) [place] % (Auto) Baso % (Auto) [place] # Baso # Seg Neutrophils % Seg Neuts % (Manual) Lymphocytes % (Manual) Nucleated RBC % Seg Neutrophils # Seg Neutrophils # Man Lymphocytes # (Manual) Basophils # (Manual) PT INR POC ABG pH 7.320 L ABG pH 7.460 H POC ABG pCO2 53.9 H POC ABG pO2 121 H ABG pO2 107.6 H ABG HCO3 27.2 H ABG Base Excess 3.3 H VBG pH Sodium Potassium Chloride Carbon Dioxide BUN Creatinine Glucose POC Glucose Lactic Acid Calcium Phosphorus Magnesium Total Bilirubin Direct Bilirubin AST ALT Alkaline Phosphatase Ammonia Lactate Dehydrogenase Total Creatine Kinase CK-MB (CK-2) CK-MB (CK-2) Rel Index Troponin T NT-Pro-B Natriuret Pep Total Protein Albumin Prealbumin LDL Cholesterol Direct HDL Cholesterol Vancomycin Trough Crossmatch 06/14/19 06/14/19 06/14/19 05:45 05:45 11:52 WBC 16.7 H RBC 3.45 L Hgb 10.2 L Hct 31.1 L MCH RDW 24.2 H Lymph % (Auto) 7.4 L [place] % (Auto) 8.5 H Baso % (Auto) 2.3 H [place] # 1.4 H Baso # 0.4 H Seg Neutrophils % 80.4 H Seg Neuts % (Manual) Lymphocytes % (Manual) Nucleated RBC % Seg Neutrophils # 13.4 H Seg Neutrophils # Man Lymphocytes # (Manual) Basophils # (Manual) PT INR POC ABG pH ABG pH POC ABG pCO2 POC ABG pO2 ABG pO2 ABG HCO3 ABG Base Excess VBG pH Sodium Potassium Chloride Carbon Dioxide BUN 43 H Creatinine Glucose POC Glucose 140 H Lactic Acid Calcium 7.7 L Phosphorus Magnesium Total Bilirubin Direct Bilirubin AST ALT Alkaline Phosphatase Ammonia Lactate Dehydrogenase Total Creatine Kinase CK-MB (CK-2) CK-MB (CK-2) Rel Index Troponin T NT-Pro-B Natriuret Pep Total Protein Albumin Prealbumin LDL Cholesterol Direct HDL Cholesterol Vancomycin Trough Crossmatch 06/14/19 06/14/19 06/15/19 18:20 23:29 05:10 WBC RBC Hgb Hct MCH RDW Lymph % (Auto) [place] % (Auto) Baso % (Auto) [place] # Baso # Seg Neutrophils % Seg Neuts % (Manual) Lymphocytes % (Manual) Nucleated RBC % Seg Neutrophils # Seg Neutrophils # Man Lymphocytes # (Manual) Basophils # (Manual) PT INR POC ABG pH ABG pH POC ABG pCO2 POC ABG pO2 ABG pO2 ABG HCO3 ABG Base Excess VBG pH Sodium Potassium 3.4 L Chloride Carbon Dioxide BUN 37 H Creatinine Glucose 138 H POC Glucose 150 H 184 H Lactic Acid Calcium 8.0 L Phosphorus Magnesium Total Bilirubin Direct Bilirubin AST ALT Alkaline Phosphatase Ammonia Lactate Dehydrogenase Total Creatine Kinase CK-MB (CK-2) CK-MB (CK-2) Rel Index Troponin T NT-Pro-B Natriuret Pep Total Protein Albumin Prealbumin LDL Cholesterol Direct HDL Cholesterol Vancomycin Trough Crossmatch 06/15/19 06/15/19 06/15/19 05:23 12:34 21:27 WBC RBC Hgb Hct MCH RDW Lymph % (Auto) [place] % (Auto) Baso % (Auto) [place] # Baso # Seg Neutrophils % Seg Neuts % (Manual) Lymphocytes % (Manual) Nucleated RBC % Seg Neutrophils # Seg Neutrophils # Man Lymphocytes # (Manual) Basophils # (Manual) PT INR POC ABG pH ABG pH POC ABG pCO2 POC ABG pO2 ABG pO2 ABG HCO3 ABG Base Excess VBG pH Sodium Potassium Chloride Carbon Dioxide BUN Creatinine Glucose POC Glucose 132 H 176 H 212 H Lactic Acid Calcium Phosphorus Magnesium Total Bilirubin Direct Bilirubin AST ALT Alkaline Phosphatase Ammonia Lactate Dehydrogenase Total Creatine Kinase CK-MB (CK-2) CK-MB (CK-2) Rel Index Troponin T NT-Pro-B Natriuret Pep Total Protein Albumin Prealbumin LDL Cholesterol Direct HDL Cholesterol Vancomycin Trough Crossmatch 06/16/19 06/16/19 06/16/19 04:30 06:09 06:31 WBC RBC Hgb Hct MCH RDW Lymph % (Auto) [place] % (Auto) Baso % (Auto) [place] # Baso # Seg Neutrophils % Seg Neuts % (Manual) Lymphocytes % (Manual) Nucleated RBC % Seg Neutrophils # Seg Neutrophils # Man Lymphocytes # (Manual) Basophils # (Manual) PT INR POC ABG pH ABG pH POC ABG pCO2 POC ABG pO2 ABG pO2 ABG HCO3 ABG Base Excess VBG pH Sodium Potassium Chloride Carbon Dioxide BUN 39 H Creatinine Glucose 132 H POC Glucose 153 H Lactic Acid Calcium 7.8 L Phosphorus Magnesium Total Bilirubin 3.20 H 3.30 H Direct Bilirubin 2.4 H AST ALT Alkaline Phosphatase 130 H 137 H Ammonia Lactate Dehydrogenase Total Creatine Kinase CK-MB (CK-2) CK-MB (CK-2) Rel Index Troponin T NT-Pro-B Natriuret Pep Total Protein 6.2 L 5.7 L Albumin 1.8 L 1.8 L Prealbumin LDL Cholesterol Direct HDL Cholesterol Vancomycin Trough Crossmatch 06/16/19 06/16/19 06/16/19 11:59 18:08 21:48 WBC RBC Hgb Hct MCH RDW Lymph % (Auto) [place] % (Auto) Baso % (Auto) [place] # Baso # Seg Neutrophils % Seg Neuts % (Manual) Lymphocytes % (Manual) Nucleated RBC % Seg Neutrophils # Seg Neutrophils # Man Lymphocytes # (Manual) Basophils # (Manual) PT INR POC ABG pH ABG pH POC ABG pCO2 POC ABG pO2 ABG pO2 ABG HCO3 ABG Base Excess VBG pH Sodium Potassium Chloride Carbon Dioxide BUN Creatinine Glucose POC Glucose 158 H 198 H 130 H Lactic Acid Calcium Phosphorus Magnesium Total Bilirubin Direct Bilirubin AST ALT Alkaline Phosphatase Ammonia Lactate Dehydrogenase Total Creatine Kinase CK-MB (CK-2) CK-MB (CK-2) Rel Index Troponin T NT-Pro-B Natriuret Pep Total Protein Albumin Prealbumin LDL Cholesterol Direct HDL Cholesterol Vancomycin Trough Crossmatch 06/17/19 06/17/19 06/17/19 06:03 10:35 12:21 WBC RBC Hgb Hct MCH RDW Lymph % (Auto) [place] % (Auto) Baso % (Auto) [place] # Baso # Seg Neutrophils % Seg Neuts % (Manual) Lymphocytes % (Manual) Nucleated RBC % Seg Neutrophils # Seg Neutrophils # Man Lymphocytes # (Manual) Basophils # (Manual) PT INR POC ABG pH ABG pH POC ABG pCO2 POC ABG pO2 ABG pO2 ABG HCO3 ABG Base Excess VBG pH Sodium 134 L Potassium Chloride 96.2 L Carbon Dioxide BUN 49 H Creatinine Glucose 119 H POC Glucose 161 H 151 H Lactic Acid Calcium 7.7 L Phosphorus Magnesium Total Bilirubin Direct Bilirubin AST ALT Alkaline Phosphatase Ammonia Lactate Dehydrogenase Total Creatine Kinase CK-MB (CK-2) CK-MB (CK-2) Rel Index Troponin T NT-Pro-B Natriuret Pep Total Protein Albumin Prealbumin LDL Cholesterol Direct HDL Cholesterol Vancomycin Trough Crossmatch 06/17/19 06/18/19 06/18/19 18:36 01:07 07:13 WBC RBC Hgb Hct MCH RDW Lymph % (Auto) [place] % (Auto) Baso % (Auto) [place] # Baso # Seg Neutrophils % Seg Neuts % (Manual) Lymphocytes % (Manual) Nucleated RBC % Seg Neutrophils # Seg Neutrophils # Man Lymphocytes # (Manual) Basophils # (Manual) PT INR POC ABG pH ABG pH POC ABG pCO2 POC ABG pO2 ABG pO2 ABG HCO3 ABG Base Excess VBG pH Sodium Potassium Chloride Carbon Dioxide BUN Creatinine Glucose POC Glucose 136 H 146 H 140 H Lactic Acid Calcium Phosphorus Magnesium Total Bilirubin Direct Bilirubin AST ALT Alkaline Phosphatase Ammonia Lactate Dehydrogenase Total Creatine Kinase CK-MB (CK-2) CK-MB (CK-2) Rel Index Troponin T NT-Pro-B Natriuret Pep Total Protein Albumin Prealbumin LDL Cholesterol Direct HDL Cholesterol Vancomycin Trough Crossmatch 06/18/19 06/18/19 10:38 11:58 WBC RBC Hgb Hct MCH RDW Lymph % (Auto) [place] % (Auto) Baso % (Auto) [place] # Baso # Seg Neutrophils % Seg Neuts % (Manual) Lymphocytes % (Manual) Nucleated RBC % Seg Neutrophils # Seg Neutrophils # Man Lymphocytes # (Manual) Basophils # (Manual) PT INR POC ABG pH ABG pH POC ABG pCO2 POC ABG pO2 ABG pO2 ABG HCO3 ABG Base Excess VBG pH Sodium 136 L Potassium Chloride 96.4 L Carbon Dioxide BUN 51 H Creatinine Glucose 102 H POC Glucose 126 H Lactic Acid Calcium 7.8 L Phosphorus Magnesium Total Bilirubin 2.70 H Direct Bilirubin AST 46 H ALT Alkaline Phosphatase 166 H Ammonia Lactate Dehydrogenase Total Creatine Kinase CK-MB (CK-2) CK-MB (CK-2) Rel Index Troponin T NT-Pro-B Natriuret Pep Total Protein Albumin 2.1 L Prealbumin LDL Cholesterol Direct HDL Cholesterol Vancomycin Trough Crossmatch
--- NOTE | 2019-06-18 13:03 | Progress Note ---
Assessment and Plan 63 yo M s/p exploratory laparotomy, omental patch of perforated gastric ulcer POD 16, s/p reclosure of abdominal wall - POD#5. 1. sepsis 2. perforated gastric ulcer 3. severe malnutrition 4. b/l pleural effusions 5. bedbound 6. infected b/l LE wounds with likely chronic limb ischemia 7. cardiomyopathy 8. CHF 9. abdominal dehiscence Plan: 1. continue abdominal binder at all times 2. soft diet with protein supplements 3. decrease TPN to 35cc/hr and will discontinue after today, monitor blood sugars 4. OOB/PT 5. prn PO pain control 6. OK to dc from surgery standpoint in am tomorrow to Rehab. Tessy may be removed in 14 days or when patient follows up in surgery clinic. D/W Case management Please call with questions. Subjective Date of service: 06/18/19 Narrative: Pt seen and examined. No complaints. No f/c. Tolerating diet. Objective Vital Signs - 12hr 06/18/19 05:09 Temperature 97.7 F Pulse Rate 105 H Respiratory 18 Rate Blood Pressure 128/89 [Right] O2 Sat by Pulse 94 Oximetry - General physical appearance Narrative Exam: Gen: AAOx3. NAD CV: s1, S2+ resp: labored with speaking Abd: soft, NT, ND. Incision c/d/i with tessy in place. Abdominal binder in place Ext: no c/c/e - Labs 06/14/19 05:45 06/18/19 10:38 Diabetes panel 06/18/19 Range/Units 10:38 Sodium 136 L (137-145) mmol/L Potassium 4.8 (3.6-5.0) mmol/L Chloride 96.4 L (98-107) mmol/L Carbon Dioxide 26 (22-30) mmol/L BUN 51 H (9-20) mg/dL Creatinine 1.0 (0.8-1.5) mg/dL Glucose 102 H (75-100) mg/dL Calcium 7.8 L (8.4-10.2) mg/dL AST 46 H (5-40) units/L ALT 38 (7-56) units/L Alkaline Phosphatase 166 H (35-129) units/L Total Protein 6.4 (6.3-8.2) g/dL Albumin 2.1 L (3.9-5) g/dL Calcium panel 06/18/19 Range/Units 10:38 Calcium 7.8 L (8.4-10.2) mg/dL Albumin 2.1 L (3.9-5) g/dL Pituitary panel 06/18/19 Range/Units 10:38 Sodium 136 L (137-145) mmol/L Potassium 4.8 (3.6-5.0) mmol/L Chloride 96.4 L (98-107) mmol/L Carbon Dioxide 26 (22-30) mmol/L BUN 51 H (9-20) mg/dL Creatinine 1.0 (0.8-1.5) mg/dL Glucose 102 H (75-100) mg/dL Calcium 7.8 L (8.4-10.2) mg/dL Adrenal panel 06/18/19 Range/Units 10:38 Sodium 136 L (137-145) mmol/L Potassium 4.8 (3.6-5.0) mmol/L Chloride 96.4 L (98-107) mmol/L Carbon Dioxide 26 (22-30) mmol/L BUN 51 H (9-20) mg/dL Creatinine 1.0 (0.8-1.5) mg/dL Glucose 102 H (75-100) mg/dL Calcium 7.8 L (8.4-10.2) mg/dL Total Bilirubin 2.70 H (0.1-1.2) mg/dL AST 46 H (5-40) units/L ALT 38 (7-56) units/L Alkaline Phosphatase 166 H (35-129) units/L Total Protein 6.4 (6.3-8.2) g/dL Albumin 2.1 L (3.9-5) g/dL
--- NOTE | 2019-06-18 16:08 | Progress Note ---
Assessment and Plan Cultures: Blood culture 06/02/19 no growth to date Urine culture 06/02/19 no growth to date Surgical culture 06/02/19 Suni albicans Wound culture right foot 06/02/2019 - PsA, Morganella Surgical foot culture Left 06/05/2019 - P mirabilis Surgical foot culture right 06/05/2019 - P mirabilis 06/13/2019 sputum culture: no growth Assessment: 63 yo M with severe non ischemic cardiomyopathy and heart failure, chronic bilateral wounds admitted with small perforated gastric ulcer. 1. Acute sepsis: POA. Likely secondary to perforated gastric ulcer and infected chronic wounds on LE. 2. Infected bilateral infected wounds - chronic with worsening. He has significant CHF and likely perfusion compromise. Concern for the viability of these limbs. Surgery has also evaluated. patient has refused amputation. His LE wounds are not curable. This was explained to him at length by Dr. Dos Santos. s/p debridement again by Dr. Oakes on 06/12/2019. 3. Perforated gastric ulcer: s/p surgery: exploratory laparotomy, omental patch of perforated gastric ulcer. 4. Elevated bilirubin: GI following. Cholestasis, thought to be related to congestive heart failure and TPN. 5. Acute hypoxic respiratory failure: CXR not consistent with any pneumonia. Afebrile. Likely pulmonary edema, patient has very low EF. Improving. Recs: - completed antibiotic course - continue wound care ID carley sign off. Please call with questions. Diamond oChen MD, FACP [facility] ([facility]) C: [phone] O: [phone] F: [phone] Subjective Date of service: 06/18/19 Principal diagnosis: elevated LFTs Interval history: Remains afebrile. No new complaints. Completed antibiotics yesterday. Objective - Exam Narrative Exam: Physical Exam: Constitutional: awake, alert, no distress Head, Ears, Nose: Normocephalic, atraumatic. External ears, nose normal Eyes: Conjunctivae/corneas clear. No ptosis. Neck: supple, no meningeal signs Oral: poor dentition Cardiovascular: S1, S2 normal. Respiratory: Good air entry, clear to auscultation bilaterally GI: abdominal binder + limiting exam Musculoskeletal: b/l LE with extensive wounds and drainage Skin: No rash or abscess Hem/Lymphatic: No palpable cervical or supraclavicular nodes. No lymphangitis Psych: no agitation Neurological: awake, alert - Constitutional Vitals: Vital Signs Temp Pulse Resp BP Pulse Ox 97.3 F L 107 H 20 124/87 97 06/18/19 15:35 06/18/19 15:35 06/18/19 15:35 06/18/19 15:35 06/18/19 15:35 Temperature -Last 24 Hours Temperature 97.3 F Temperature 97.6 F Temperature 97.3 F Temperature 97.7 F Temperature 97.7 F Temperature 98.6 F Temperature 97.8 F Temperature 97.7 F - Labs CBC & Chem 7: 06/14/19 05:45 06/18/19 10:38 Labs: Abnormal lab results 06/17/19 06/18/19 06/18/19 Range/Units 18:36 01:07 07:13 Sodium (137-145) mmol/L Chloride (98-107) mmol/L BUN (9-20) mg/dL Glucose (75-100) mg/dL POC Glucose 136 H 146 H 140 H (70-105) Calcium (8.4-10.2) mg/dL Total Bilirubin (0.1-1.2) mg/dL AST (5-40) units/L Alkaline Phosphatase (35-129) units/L Albumin (3.9-5) g/dL 06/18/19 06/18/19 Range/Units 10:38 11:58 Sodium 136 L (137-145) mmol/L Chloride 96.4 L (98-107) mmol/L BUN 51 H (9-20) mg/dL Glucose 102 H (75-100) mg/dL POC Glucose 126 H (70-105) Calcium 7.8 L (8.4-10.2) mg/dL Total Bilirubin 2.70 H (0.1-1.2) mg/dL AST 46 H (5-40) units/L Alkaline Phosphatase 166 H (35-129) units/L Albumin 2.1 L (3.9-5) g/dL
[2019-06-18] MEDS: IPRATROPIUM/ALBUTEROL SULFATE 3 ML AMPUL.NEB IH SCH ×2 (17:49→20:06)
[2019-06-18] MEDS: BUDESONIDE 0.5 MG/2 ML NEBU IH SCH ×2 (17:50→20:06)
--- NOTE | 2019-06-18 19:19 | Progress Note ---
Assessment and Plan Assessment and plan: --Perforated gastric ulcer. s/p exploratory laparotomy, omental patch of perforated gastric ulcer by Dr. Sims, cont empiric abx, advance diet as tolerated Taper and DC TPN, --Hypokalemia; resolved --Acute hypoxic respiratory failure; intubation and s/p extubation --Sepsis with bilateral lower extremity cellulitis/infected ulcer /perforated gastric ulcer --bilateral lower extremity cellulitis/infected ulcer - from PVD s/p bilateral I and D done 06/05 s/p surgical debridement on 06/13/2019 Continue wound care --Chronic systolic CHF; Continue current cardiac medications --Severe protein calorie malnutrition nutrition consult, may need TPN --CKD stage III, resolved --Jaundice Elevated bilirubin, Total Bili of 7.7 -4.1 GI evaluated and signed off --Severe metabolic acidosis: Resolved --DVT Prophylaxis: Heparin DC planning per case management Possible placement when medically stable History Interval history: Patient seen and examined medical records reviewed Patient feels slightly better, No new complaints Vital signs stable Hospitalist Physical - Constitutional Vitals: Temp Pulse Resp BP Pulse Ox 97.3 F L 107 H 20 124/87 97 06/18/19 15:35 06/18/19 15:35 06/18/19 15:35 06/18/19 15:35 06/18/19 15:35 General appearance: Present: no acute distress, well-nourished - EENT Eyes: Present: PERRL, EOM intact - Neck Neck: Present: supple, normal ROM - Respiratory Respiratory effort: normal, labored Respiratory: bilateral: diminished, negative: rales, rhonchi, wheezing - Cardiovascular Rhythm: regular Heart Sounds: Present: S1 & S2 - Extremities Extremities: no ischemia, No edema - Abdominal General gastrointestinal: soft, non-tender, non-distended, normal bowel sounds - Integumentary Integumentary: Present: clear, warm - Psychiatric Psychiatric: appropriate mood/affect - Neurologic Neurologic: moves all extremities Results - Labs CBC & Chem 7: 06/14/19 05:45 06/18/19 10:38 Labs: Laboratory Last Values WBC 16.7 K/mm3 (4.5-11.0) H 06/14/19 05:45 RBC 3.45 M/mm3 (3.65-5.03) L 06/14/19 05:45 Hgb 10.2 gm/dl (11.8-15.2) L 06/14/19 05:45 Hct 31.1 % (35.5-45.6) L 06/14/19 05:45 MCV 90 fl (84-94) 06/14/19 05:45 MCH 30 pg (28-32) 06/14/19 05:45 MCHC 33 % (32-34) 06/14/19 05:45 RDW 24.2 % (13.2-15.2) H 06/14/19 05:45 Plt Count 355 K/mm3 (140-440) 06/14/19 05:45 Lymph % (Auto) 7.4 % (13.4-35.0) L 06/14/19 05:45 [place] % (Auto) 8.5 % (0.0-7.3) H 06/14/19 05:45 Eos % (Auto) 1.4 % (0.0-4.3) 06/14/19 05:45 Baso % (Auto) 2.3 % (0.0-1.8) H 06/14/19 05:45 Lymph # 1.2 K/mm3 (1.2-5.4) 06/14/19 05:45 [place] # 1.4 K/mm3 (0.0-0.8) H 06/14/19 05:45 Eos # 0.2 K/mm3 (0.0-0.4) 06/14/19 05:45 Baso # 0.4 K/mm3 (0.0-0.1) H 06/14/19 05:45 Add Manual Diff Complete 06/13/19 06:11 Total Counted 100 06/13/19 06:11 Seg Neutrophils % 80.4 % (40.0-70.0) H 06/14/19 05:45 Seg Neuts % (Manual) 92.0 % (40.0-70.0) H 06/13/19 06:11 Band Neutrophils % 0 % 06/13/19 06:11 Lymphocytes % (Manual) 2.0 % (13.4-35.0) L 06/13/19 06:11 Reactive Lymphs % (Man) 0 % 06/13/19 06:11 Monocytes % (Manual) 4.0 % (0.0-7.3) 06/13/19 06:11 Eosinophils % (Manual) 1.0 % (0.0-4.3) 06/13/19 06:11 Basophils % (Manual) 1.0 % (0.0-1.8) 06/13/19 06:11 Metamyelocytes % 0 % 06/13/19 06:11 Myelocytes % 0 % 06/13/19 06:11 Promyelocytes % 0 % 06/13/19 06:11 Blast Cells % 0 % 06/13/19 06:11 Nucleated RBC % Not Reportable 06/13/19 06:11 Seg Neutrophils # 13.4 K/mm3 (1.8-7.7) H 06/14/19 05:45 Seg Neutrophils # Man 15.6 K/mm3 (1.8-7.7) H 06/13/19 06:11 Band Neutrophils # 0.0 K/mm3 06/13/19 06:11 Lymphocytes # (Manual) 0.3 K/mm3 (1.2-5.4) L 06/13/19 06:11 Abs React Lymphs (Man) 0.0 K/mm3 06/13/19 06:11 Monocytes # (Manual) 0.7 K/mm3 (0.0-0.8) 06/13/19 06:11 Eosinophils # (Manual) 0.2 K/mm3 (0.0-0.4) 06/13/19 06:11 Basophils # (Manual) 0.2 K/mm3 (0.0-0.1) H 06/13/19 06:11 Metamyelocytes # 0.0 K/mm3 06/13/19 06:11 Myelocytes # 0.0 K/mm3 06/13/19 06:11 Promyelocytes # 0.0 K/mm3 06/13/19 06:11 Blast Cells # 0.0 K/mm3 06/13/19 06:11 WBC Morphology Not Reportable 06/13/19 06:11 Hypersegmented Neuts Not Reportable 06/13/19 06:11 Hyposegmented Neuts Not Reportable 06/13/19 06:11 Hypogranular Neuts Not Reportable 06/13/19 06:11 Smudge Cells Not Reportable 06/13/19 06:11 Toxic Granulation Not Reportable 06/13/19 06:11 Toxic Vacuolation Not Reportable 06/13/19 06:11 Dohle Bodies Not Reportable 06/13/19 06:11 Pelger-Huet Anomaly Not Reportable 06/13/19 06:11 Romero Rods Not Reportable 06/13/19 06:11 Platelet Estimate Consistent w auto 06/13/19 06:11 Clumped Platelets Not Reportable 06/13/19 06:11 Plt Clumps, EDTA Not Reportable 06/13/19 06:11 Large Platelets Not Reportable 06/13/19 06:11 Giant Platelets Not Reportable 06/13/19 06:11 Platelet Satelliting Not Reportable 06/13/19 06:11 Plt Morphology Comment Not Reportable 06/13/19 06:11 RBC Morphology Not Reportable 06/13/19 06:11 Dimorphic RBCs Not Reportable 06/13/19 06:11 Polychromasia Not Reportable 06/13/19 06:11 Hypochromasia 2+ 06/13/19 06:11 Poikilocytosis Not Reportable 06/13/19 06:11 Anisocytosis 1+ 06/13/19 06:11 Microcytosis Not Reportable 06/13/19 06:11 Macrocytosis Not Reportable 06/13/19 06:11 Spherocytes Not Reportable 06/13/19 06:11 Pappenheimer Bodies Not Reportable 06/13/19 06:11 Sickle Cells Not Reportable 06/13/19 06:11 Target Cells 1+ 06/13/19 06:11 Tear Drop Cells Not Reportable 06/13/19 06:11 Ovalocytes Not Reportable 06/13/19 06:11 Helmet Cells Not Reportable 06/13/19 06:11 [place] Bodies Not Reportable 06/13/19 06:11 [place] Rings Not Reportable 06/13/19 06:11 [place] Cells Not Reportable 06/13/19 06:11 Bite Cells Not Reportable 06/13/19 06:11 Crenated Cell Not Reportable 06/13/19 06:11 Elliptocytes Not Reportable 06/13/19 06:11 Acanthocytes (Spur) Not Reportable 06/13/19 06:11 Rouleaux Not Reportable 06/13/19 06:11 Hemoglobin C Crystals Not Reportable 06/13/19 06:11 Schistocytes Not Reportable 06/13/19 06:11 Malaria parasites Not Reportable 06/13/19 06:11 Bunny Bodies Not Reportable 06/13/19 06:11 Hem Pathologist Commnt No 06/13/19 06:11 PT 17.9 Sec. (12.2-14.9) H 06/02/19 07:15 INR 1.50 (0.87-1.13) H 06/02/19 07:15 APTT 33.2 Sec. (24.2-36.6) 06/02/19 07:15 POC ABG pH 7.320 (7.35-7.45) L 06/13/19 17:23 ABG pH 7.460 pH Units (7.350-7.450) H 06/14/19 04:45 POC ABG pCO2 53.9 (35-45) H 06/13/19 17:23 ABG pCO2 39.1 mm Hg 06/14/19 04:45 POC ABG pO2 121 (80-105) H 06/13/19 17:23 ABG pO2 107.6 mm Hg (80.0-90.0) H 06/14/19 04:45 POC ABG HCO3 27.8 (22-26 mml/L) 06/13/19 17:23 ABG HCO3 27.2 mmol/L (20.0-26.0) H 06/14/19 04:45 POC ABG Total CO2 29 (23-27mmol/L) 06/13/19 17:23 POC ABG O2 Sat 98 06/13/19 17:23 ABG O2 Saturation 98.0 % (95.0-99.0) 06/14/19 04:45 ABG O2 Content 21.2 (0.0-44) 06/14/19 04:45 POC ABG Base Excess 2 ((-2) - (+3)mmol/L) 06/13/19 17:23 ABG Base Excess 3.3 mmol/L (-2.0-3.0) H 06/14/19 04:45 ABG Hemoglobin 15.7 gm/dl (14.0-18.0) 06/14/19 04:45 ABG Carboxyhemoglobin 2.0 % (0.0-5.0) 06/14/19 04:45 ABG Methemoglobin 0.6 % (0.0-1.5) 06/14/19 04:45 VBG pH 7.310 (7.320-7.420) L 06/02/19 07:15 Oxyhemoglobin 95.5 % (95.0-99.0) 06/14/19 04:45 FiO2 30 % 06/14/19 04:45 Sodium 136 mmol/L (137-145) L 06/18/19 10:38 Potassium 4.8 mmol/L (3.6-5.0) 06/18/19 10:38 Chloride 96.4 mmol/L (98-107) L 06/18/19 10:38 Carbon Dioxide 26 mmol/L (22-30) 06/18/19 10:38 Anion Gap 18 mmol/L 06/18/19 10:38 BUN 51 mg/dL (9-20) H 06/18/19 10:38 Creatinine 1.0 mg/dL (0.8-1.5) 06/18/19 10:38 Estimated GFR > 60 ml/min 06/18/19 10:38 BUN/Creatinine Ratio 51 % 06/18/19 10:38 Glucose 102 mg/dL (75-100) H 06/18/19 10:38 POC Glucose 142 (70-105) H 06/18/19 17:27 Lactic Acid 1.10 mmol/L (0.7-2.0) 06/02/19 09:17 Calcium 7.8 mg/dL (8.4-10.2) L 06/18/19 10:38 Phosphorus 2.70 mg/dL (2.5-4.5) 06/17/19 10:35 Magnesium 1.90 mg/dL (1.7-2.3) 06/17/19 10:35 Total Bilirubin 2.70 mg/dL (0.1-1.2) H 06/18/19 10:38 Direct Bilirubin 2.4 mg/dL (0-0.2) H 06/16/19 06:31 Indirect Bilirubin 0.9 mg/dL 06/16/19 06:31 AST 46 units/L (5-40) H 06/18/19 10:38 ALT 38 units/L (7-56) 06/18/19 10:38 Alkaline Phosphatase 166 units/L (35-129) H 06/18/19 10:38 Ammonia 16.0 umol/L (25-60) L 06/02/19 07:15 Lactate Dehydrogenase 214 units/L (91-180) H 06/13/19 06:11 Total Creatine Kinase 53 units/L (55-170) L 06/02/19 07:15 CK-MB (CK-2) 5.1 ng/mL (0.0-4.0) H 06/02/19 07:15 CK-MB (CK-2) Rel Index 9.6 (0-4) H 06/02/19 07:15 Troponin T 0.065 ng/mL (0.00-0.029) H 06/02/19 07:15 NT-Pro-B Natriuret Pep > 47952 pg/mL (0-900) H 06/02/19 07:15 Total Protein 6.4 g/dL (6.3-8.2) 06/18/19 10:38 Albumin 2.1 g/dL (3.9-5) L 06/18/19 10:38 Albumin/Globulin Ratio 0.5 % 06/18/19 10:38 Prealbumin 0.106 g/L (0.200-0.400) L 06/11/19 05:58 Triglycerides 78 mg/dL (2-149) 06/11/19 05:58 Cholesterol 73 mg/dL (50-199) 06/02/19 07:15 LDL Cholesterol Direct 31 mg/dL (50-130) L 06/02/19 07:15 HDL Cholesterol 8 mg/dL (40-59) L 06/02/19 07:15 Cholesterol/HDL Ratio 9.12 % 06/02/19 07:15 Lipase 56 units/L (13-60) 06/02/19 07:15 Urine Color [place] (Yellow) 06/02/19 10:37 Urine Turbidity Clear (Clear) 06/02/19 10:37 Urine pH 5.0 (5.0-7.0) 06/02/19 10:37 Ur Specific [place] 1.019 (1.003-1.030) 06/02/19 10:37 Urine Protein <15 mg/dl mg/dL (Negative) 06/02/19 10:37 Urine Glucose (UA) 50 mg/dL (Negative) 06/02/19 10:37 Urine Ketones Neg mg/dL (Negative) 06/02/19 10:37 Urine Blood Neg (Negative) 06/02/19 10:37 Urine Nitrite Neg (Negative) 06/02/19 10:37 Urine Bilirubin Neg (Negative) 06/02/19 10:37 Urine Urobilinogen 4.0 mg/dL (<2.0) 06/02/19 10:37 Ur Leukocyte Esterase Neg (Negative) 06/02/19 10:37 Urine WBC (Auto) 2.0 /HPF (0.0-6.0) 06/02/19 10:37 Urine RBC (Auto) 2.0 /HPF (0.0-6.0) 06/02/19 10:37 Urine Bacteria (Auto) 1+ /HPF (Negative) 06/02/19 10:37 Vancomycin Trough 11.6 ug/mL (5.0-20.0) 06/09/19 08:58 Blood Type A POSITIVE 06/13/19 11:17 Antibody Screen Negative 06/13/19 11:17 Crossmatch See Detail 06/13/19 11:17 Active Medications - Current Medications Current Medications: Generic Name Dose Route Start Last Admin Trade Name Freq PRN Reason Stop Dose Admin Albuterol 2.5 mg 06/02/19 11:28 06/17/19 03:26 Proventil IH 2.5 mg Q4H PRN Administration Shortness Of Breath Albuterol/Ipratropium 1 ampul 06/16/19 14:00 06/18/19 17:49 Duoneb *Not For Prn Use* IH Not Given TIDRT ROSE Benzonatate 100 mg 06/13/19 14:54 Tessalon Perles PO Q8HR PRN Cough Budesonide 0.5 mg 06/02/19 20:00 06/18/19 17:50 Pulmicort IH Not Given Q12HRT ROSE Diphenhydramine HCl 25 mg 06/16/19 18:20 06/17/19 21:42 Benadryl PO 25 mg Q8H PRN Administration Itching Furosemide 40 mg 06/12/19 06:00 06/18/19 05:34 Lasix PO 40 mg DAILY@0600 ROSE Administration Guaifenesin 200 mg 06/13/19 14:54 Robitussin PO Q4H PRN Cough Heparin Sodium (Porcine) 5,000 unit 06/09/19 22:00 06/18/19 14:45 Heparin SUB-Q 5,000 unit Q8HR [facility] Administration Hydromorphone HCl 0.25 mg 06/05/19 10:55 06/18/19 14:44 Dilaudid IV 0.25 mg Q3H PRN Administration Pain , Severe (7-10) Amino Acids/Electrolytes/Dextrose 1,560 mls @ 35 mls/hr 06/17/19 20:00 06/17/19 20:25 Tpn Adult IV 06/18/19 19:59 65 mls/hr DAILY@2000 [facility] Administration Protocol Insulin Human Lispro 0 unit 06/08/19 06:00 06/18/19 18:18 Humalog SUB-Q Not Given Q6HR [facility] Protocol Metoprolol Tartrate 12.5 mg 06/15/19 22:00 06/18/19 09:29 Metoprolol PO 12.5 mg BID [facility] Administration Ondansetron HCl 4 mg 06/11/19 15:26 06/11/19 19:34 Zofran IV 4 mg Q6H PRN Administration Nausea And Vomiting Oxycodone/Acetaminophen 1 tab 06/16/19 17:46 06/18/19 17:39 Percocet 5/325 PO 1 tab Q6H PRN Administration Pain, Moderate (4-6) Pantoprazole Sodium 40 mg 06/18/19 22:00 Protonix PO BID [facility] Senna 17.2 mg 06/16/19 22:00 06/17/19 21:44 Senokot PO 17.2 mg QHS [facility] Administration Sodium Hypochlorite 1 applic 06/05/19 22:00 06/18/19 09:31 Dakin's Half Strength TP 1 dose BID ROSE Administration Nutrition/Malnutrition Assess - Dietary Evaluation Nutrition/Malnutrition Findings: Nutrition Notes Start: 06/03/19 11:22 Freq: Status: Active Protocol: Document 06/18/19 09:34 CC (Rec: 06/18/19 09:58 CC [id number]) Co-Sign 06/18/19 09:34 LM Nutrition Notes Initial or Follow up Reassessment Current Diagnosis CKD(stage I-IV),Decubitus( Pressure Ulcer),Sepsis, Hypertension,Heart Failure Other Pertinent Diagnosis Perforated viscus S/P exp lap Current Diet CPN at 65 ml/hr + [facility] soft Pertinent Medications Lasix Height 5 ft 7 in Weight 61.1 kg [place] Body Weight (kg) 67.27 BMI 21.1 Subjective/Other Information CPN day 15. Pt stated he ate some of his meals yesterday and stated that to be 50%. Pt stated he drinks all of his Ensures, the milk and juice at all his meal times. Observed breakfast tray not eaten today besides Ensure, milk and juice. Pt reported he does not feel well right now but plans on eating his breakfast later . Pt meeting 100% of energy needs and 100% of protein needs via PO and ONS intakes. Per chart MD would like to taper and D/C TPN. Percent of energy/protein needs met: 100%/100% (CPN, PO and ONS) Burn Absent Trauma Absent GI Symptoms None Current % PO Fair (50-74%) Minimum of two criteria Yes Body Fat Depletion Mild depletion (non-severe) Muscle Mass Mild Depletion (non-severe) Fluid Accumulation Mild (non-severe) Reduced [employer] Strength Measurably Reduced (severe) #1 Nutrition Diagnosis Malnutrition Diagnosis Progress(for reassessment Continues documentation) Is patient on ventilator? No Is Patient Ambulatory and/or Out of Bed No REE-([facility]-confined to bed) [phone] Calculation Used for Recommendations [facility] Additional Notes Protein: 73-92g (1.2-1.5g/kg) Fluid: 1 ml/kcal or per MD Nutrition Intervention Change Diet Order: Mechanical soft and ONS Add Supplement/Snack (indicate name/kcal Ensure Enlive TID /protein ) Provides kCal: 1,050 Provides Protein (gm) 60 Goal #1 Meet at least 75% of kcal need for oral diet and supplements before D/C of TPN Anticipated Discharge Needs: Unable to determine at this time Follow-Up By: 06/19/19 Additional Comments F/U for PO and ONS intakes
[2019-06-18] MEDS: PANTOPRAZOLE 40 MG TAB PO SCH (23:11)
[2019-06-18] MEDS: SENNOSIDES 8.6 MG TAB PO SCH (23:11)
[2019-06-19] MEDS: INSULIN LISPRO 100 UNIT/ML SUB-Q SCH ×3 (05:51→13:02)
[2019-06-19] MEDS: oxyCODONE /ACETAMINOPHEN 5-325MG TAB PO PRN ×3 (05:54→19:27)
[2019-06-19] MEDS: FUROSEMIDE 40 MG TAB PO SCH (05:54)
[2019-06-19] MEDS: HEPARIN 5,000 UNIT/1 ML VIAL SUB-Q SCH ×2 (05:55→13:28)
[2019-06-19] MEDS: BUDESONIDE 0.5 MG/2 ML NEBU IH SCH ×2 (07:39→22:37)
[2019-06-19] MEDS: IPRATROPIUM/ALBUTEROL SULFATE 3 ML AMPUL.NEB IH SCH ×3 (07:39→22:37)
[2019-06-19] MEDS: METOPROLOL TARTRATE 25 MG TAB PO SCH ×2 (08:00→10:00)
[2019-06-19] MEDS: PANTOPRAZOLE 40 MG TAB PO SCH ×2 (08:00→10:00)
[2019-06-19] MEDS: HYDROmorphone 1 MG/1 ML INJ IV PRN (10:14)
--- NOTE | 2019-06-19 10:33 | Progress Note ---
Assessment and Plan Cont present cardiac management. The patient has been seen in conjunction with Dr. Jessica who agrees with the assessment and plan of care. - Patient Problems (1) Pneumoperitoneum Current Visit: Yes Status: Acute (2) Sepsis Current Visit: Yes Status: Acute Qualifiers: Sepsis type: sepsis due to unspecified organism Sepsis acute organ dysfunc tion status: unspecified Qualified Code(s): A41.9 - Sepsis, unspecified organism (3) Chronic HFrEF (heart failure with reduced ejection fraction) Current Visit: Yes Status: Chronic (4) Nonischemic cardiomyopathy Current Visit: Yes Status: Chronic convert IV lopressor (5) Sinus node dysfunction Current Visit: Yes Status: Chronic (6) NSVT (nonsustained ventricular tachycardia) Current Visit: Yes Status: Chronic (7) HTN (hypertension) Current Visit: Yes Status: Chronic Qualifiers: Hypertension type: essential hypertension Qualified Code(s): I10 - [place] l (primary) hypertension (8) Pulmonary hypertension Current Visit: Yes Status: Chronic (9) PAD (peripheral artery disease) Current Visit: Yes Status: Chronic (10) Anemia Current Visit: Yes Status: Acute (10) Acute respiratory failure Current Visit: Yes Status: Acute Subjective Date of service: 06/19/19 Principal diagnosis: elevated LFTs Interval history: pt alert, oriented, no current cardiac complaints. not on telemetry. Objective Vital Signs Temp Pulse Pulse Resp Resp BP Pulse Ox 06/19/19 08:30 100 06/19/19 08:00 109 H 114/81 06/19/19 07:50 105 H 18 06/19/19 07:45 97.9 F 107 H 18 114/81 100 06/18/19 23:11 93 H 126/90 06/18/19 20:11 97 06/18/19 20:10 111 H 18 06/18/19 15:35 97.3 F L 107 H 20 124/87 97 06/18/19 11:47 97.6 F 109 H 18 126/89 98 - Physical Examination General: No Apparent Distress, Other HEENT: Positive: EOMI, Normocephaly, Mucus Membranes Moist Neck: Positive: neck supple, trachea midline, Carotid Upstroke (full) Cardiac: Positive: Reg Rate and Rhythm, S1/S2 Lungs: Positive: Decreased Breath Sounds Neuro: Positive: Grossly Intact Abdomen: Positive: Soft, Other (abdominal binder in place) /Rectal: Other (Urine dark yellow) Skin: Positive: Other (abdominal surgical wounds, multiple wounds on both lower extremities with areas of ischemic ulceration.) Musculoskeletal: Normal Range of Motion Extremities: Present: lower extr. pulses (LLE difficult to palpate d/t wound dressing and ischemic ulceration), Other (LLE - pulse difficult to palpate d/t wounds ) - Labs and Meds Cardiac Enzymes 06/18/19 Range/Units 10:38 AST 46 H (5-40) units/L Comprehensive Metabolic Panel 06/18/19 Range/Units 10:38 Sodium 136 L (137-145) mmol/L Potassium 4.8 (3.6-5.0) mmol/L Chloride 96.4 L (98-107) mmol/L Carbon Dioxide 26 (22-30) mmol/L BUN 51 H (9-20) mg/dL Creatinine 1.0 (0.8-1.5) mg/dL Glucose 102 H (75-100) mg/dL Calcium 7.8 L (8.4-10.2) mg/dL AST 46 H (5-40) units/L ALT 38 (7-56) units/L Alkaline Phosphatase 166 H (35-129) units/L Total Protein 6.4 (6.3-8.2) g/dL Albumin 2.1 L (3.9-5) g/dL - Imaging and Cardiology EKG: image reviewed Echo: report reviewed (02/28/19 showed EF of 10-15%, dilation of all chambers, moderate AR, moderate to severe TR and RV hypokinesis. ) Cardiac cath: report reviewed (04/2017 showed patent coronaries, EF 10-15%. ) - EKG Sinus rhythms and dysrhythmias: sinus rhythm Chamber hypertrophy or enlargement: left ventricular hypertro Repolarization changes or abnormalities: repolarization abn secondary to ventricular hypertrophy Myocardial infarction: septal [place] (old age or ind
--- NOTE | 2019-06-19 15:13 | Progress Note ---
Assessment and Plan 63 yo M s/p exploratory laparotomy, omental patch of perforated gastric ulcer POD 17, s/p reclosure of abdominal wall - POD#6 1. sepsis 2. perforated gastric ulcer 3. severe malnutrition 4. b/l pleural effusions 5. bedbound 6. infected b/l LE wounds with likely chronic limb ischemia 7. cardiomyopathy 8. CHF 9. abdominal dehiscence Plan: 1. continue abdominal binder at all times 2. soft diet with protein supplements 3. TPN discontinued 4. OOB/PT 5. prn PO pain control 6. OK to dc from surgery standpoint to [place]. [place] to be removed in 2 weeks when patient follows up in surgery clinic Will see prn D/W Case management Please call with questions. Subjective Date of service: 06/19/19 Narrative: Pt seen and examined. No acute complaints. No f/c. Mild abdominal discomfort. Objective Vital Signs - 12hr 06/19/19 06/19/19 06/19/19 07:45 07:50 08:00 Temperature 97.9 F Pulse Rate 107 H 109 H Pulse Rate [ 105 H Anterior Throughout] Respiratory 18 Rate Respiratory 18 Rate [Anterior Throughout] Blood Pressure 114/81 114/81 O2 Sat by Pulse 100 Oximetry 06/19/19 06/19/19 08:30 11:15 Temperature 97.9 F Pulse Rate 102 H Pulse Rate [ Anterior Throughout] Respiratory 18 Rate Respiratory Rate [Anterior Throughout] Blood Pressure 102/67 O2 Sat by Pulse 100 100 Oximetry - General physical appearance Narrative Exam: Gen: AAOx3. NAD CV: s1, S2+ resp: even and unlabored Abd: soft, NT, ND. Midline incision with scant serous drainage at umbilicus. Otherwise c/d/i. Covered with ABD pad and abdominal binder applied. Ext: b/l LE dressings c/d/i - Labs 06/14/19 05:45 06/18/19 10:38
--- NOTE | 2019-06-19 15:45 | Discharge Summary ---
<FAUSTINA VELASQUEZ - Last Filed: 06/19/19 15:58> Providers - Providers Date of Admission: 06/02/19 10:06 Date of discharge: 06/19/19 Attending physician: FAUSTINA VELASQUEZ 06/02/19 10:20 Consult to Cardiology [CONS] Urgent Consulting Provider: MARILY PETERSON Reason For Exam: cardiomyopathy patient going to surgery 06/02/19 14:27 Consult to Physician [CONS] Routine Comment: Consulting Provider: PANDA PAL Physician Instructions: Reason For Exam: sepsis 06/02/19 14:28 Consult to Dietitian/Nutrition [CONS] Routine Physician Instructions: Reason For Exam: Reason for Consult: tpn 06/02/19 14:29 Consult to Physician [CONS] Routine Comment: Consulting Provider: AKOSUA JIANG Physician Instructions: Reason For Exam: perforated gastric ulcer, sepsis 06/02/19 16:08 Consult to Physician [CONS] Routine Comment: Consulting Provider: AKOSUA JIANG Physician Instructions: Reason For Exam: sepsis 06/02/19 16:11 Consult to Wound/ET Nurse [CONS] Routine Reason For Exam: wound eval 06/04/19 10:56 Consult to Physician [CONS] Routine Comment: Consulting Provider: JUAN BEARDEN Physician Instructions: Reason For Exam: lower extremity wounds, ?need for amp 06/05/19 14:31 Physical Therapy Evaluation and Treat [CONS] Routine Comment: Reason For Exam: post op. deconditioned 06/09/19 12:40 Consult to Physician [CONS] Routine Comment: Consulting Provider: SHEYLA GARCIA Physician Instructions: Reason For Exam: Jaundice, elevated Bilirubin 06/10/19 05:34 Consult to Dietitian/Nutrition [CONS] Routine Physician Instructions: Reason For Exam: Reason for Consult: Write/Manage TPN/PPN 06/12/19 07:32 Consult to PICC Line RN [CONS] Routine Reason For Exam: PICC, on TPN. need to dc TLC Type Line:: PICC Primary care physician: PRODUCTION ANALYST Hospitalization Reason for admission: Abdominal pain/perforated gastric ulcer Condition: Stable Pertinent studies: Abdomen and pelvis CT CT head CT face Chest x-ray Lower extremity Doppler Upper GI series Procedures: exploratory laparotomy, omental patch of perforated gastric ulcer wound dehiscence of the midline abdominal wall s/p wound closure, a Hospital course: Patient is a 63 yo man with a history of NICMP, chronic HFrEF 10-15%, NSVT declines LifeVest/AICD, CKD 3, HTN and mod to severe TR, b/l LE wounds, bedbound who presents to [facility] ED with c/o abdominal pain for 3 days. He had multiple bilateral lower extremity wound and stage I to 2 lower extremity ulcer covered with pus. CT abdomen and pelvis suggestive of pneumoperitoneum. General surgery was consulted and patient was taken for OR for exploratory laparotomy by general surgeon. He also received empiric antibiotics. He was intubated per-operatively,extubated 06/05, transferred to Surgical floor. Patient had wound dehiscence of the midline abdominal wall With eviscerated omentum in the middle of the incision Surgery has taken the patient to the OR s/p wound closure, acute respiratory failure requiring intubation, transferred to ICU Extubated yesterday, patient feels well , tolerated clear liquids, surgery advance to full liquids today The patient is comfortable off TPN, started mechanical soft diet Cleared by surgery, being transferred to SNF Stable at discharge and transfer Discharge diagnosis --Perforated gastric ulcer. s/p exploratory laparotomy, omental patch of perforated gastric ulcer by Dr. Wheeler, cont empiric abx, advance diet as tolerated Taper and DC TPN, --Hypokalemia; resolved --Acute hypoxic respiratory failure; intubation and s/p extubation --Sepsis with bilateral lower extremity cellulitis/infected ulcer /perforated gastric ulcer --bilateral lower extremity cellulitis/infected ulcer - from PVD s/p bilateral I and D done 06/05 s/p surgical debridement on 06/13/2019 Continue wound care --Chronic systolic CHF; Continue current cardiac medications --Severe protein calorie malnutrition nutrition consult, may need TPN --CKD stage III, resolved --Jaundice Elevated bilirubin, improved GI evaluated and signed off --Severe metabolic acidosis: Resolved --DVT Prophylaxis: Heparin Stable at Discharge Disposition: DC-30 STILL A PATIENT Time spent for discharge: 35 min Core Measure Documentation - Palliative Care Palliative Care/ Comfort Measures: Not Applicable - Core Measures Any of the following diagnoses?: none Exam - Constitutional Vitals: Temp Pulse Resp BP Pulse Ox 97.9 F 95 H 20 102/67 100 06/19/19 11:15 06/19/19 14:45 06/19/19 14:45 06/19/19 11:15 06/19/19 11:15 General appearance: Present: no acute distress, well-nourished - EENT Eyes: Present: PERRL, EOM intact - Neck Neck: Present: supple, normal ROM - Respiratory Respiratory effort: normal Respiratory: bilateral: diminished, negative: rales, rhonchi, wheezing - Cardiovascular Rhythm: regular Heart Sounds: Present: S1 & S2 - Extremities Extremities: no ischemia, abnormal (surgical dressing in place) - Abdominal General gastrointestinal: Present: soft, non-tender, non-distended, normal bowel sounds, other (surgical scars intact) - Integumentary Integumentary: Present: clear, warm - Musculoskeletal Musculoskeletal: strength equal bilaterally, generalized weakness - Psychiatric Psychiatric: appropriate mood/affect - Neurologic Neurologic: moves all extremities Plan Activity: advance as tolerated, fall precautions Diet: other (mechanical soft diet) Wound: per wound nurse instructions Special Instructions: physical therapy Additional Instructions: Fall precautions Follow up with: JASIEL WHEELER DO [Staff Physician] - 10 Days PRIMARY CARE, [Primary Care Provider] - 3-5 Days MELECIO ENRIQUEZ MD [Staff Physician] - 7 Days JUAN BEARDEN MD [Staff Physician] - 7 Days Prescriptions: oxyCODONE /ACETAMINOPHEN [Percocet 5/325 mg] 1 tab PO Q6H PRN #20 tablet PRN Reason: Pain, Moderate (4-6) <JASIEL WHEELER - Last Filed: 06/19/19 16:26> Providers - Providers Date of Admission: 06/02/19 10:06 Attending physician: FAUSTINA VELASQUEZ 06/02/19 10:20 Consult to Cardiology [CONS] Urgent Consulting Provider: MARILY PETERSON Reason For Exam: cardiomyopathy patient going to surgery 06/02/19 14:27 Consult to Physician [CONS] Routine Comment: Consulting Provider: PANDA PAL Physician Instructions: Reason For Exam: sepsis 06/02/19 14:28 Consult to Dietitian/Nutrition [CONS] Routine Physician Instructions: Reason For Exam: Reason for Consult: tpn 06/02/19 14:29 Consult to Physician [CONS] Routine Comment: Consulting Provider: AKOSUA JIANG Physician Instructions: Reason For Exam: perforated gastric ulcer, sepsis 06/02/19 16:08 Consult to Physician [CONS] Routine Comment: Consulting Provider: AKOSUA JIANG Physician Instructions: Reason For Exam: sepsis 06/02/19 16:11 Consult to Wound/ET Nurse [CONS] Routine Reason For Exam: wound eval 06/04/19 10:56 Consult to Physician [CONS] Routine Comment: Consulting Provider: JUAN BEARDEN Physician Instructions: Reason For Exam: lower extremity wounds, ?need for amp 06/05/19 14:31 Physical Therapy Evaluation and Treat [CONS] Routine Comment: Reason For Exam: post op. deconditioned 06/09/19 12:40 Consult to Physician [CONS] Routine Comment: Consulting Provider: SHEYLA GARCIA Physician Instructions: Reason For Exam: Jaundice, elevated Bilirubin 06/10/19 05:34 Consult to Dietitian/Nutrition [CONS] Routine Physician Instructions: Reason For Exam: Reason for Consult: Write/Manage TPN/PPN 06/12/19 07:32 Consult to PICC Line RN [CONS] Routine Reason For Exam: PICC, on TPN. need to dc TLC Type Line:: PICC Primary care physician: PRODUCTION ANALYST Exam - Constitutional Vitals: Temp Pulse Resp BP Pulse Ox 97.9 F 95 H 20 102/67 100 06/19/19 11:15 06/19/19 14:45 06/19/19 14:45 06/19/19 11:15 06/19/19 11:15 Plan Additional Instructions: Leave abdominal in place at all times. Should only be removed to assess incision and then be placed backed on. Do not remove tessy. Patient to follow up in surgery clinic with Dr. Wheeler in 10 days to remove tessy.
[2019-06-19] MEDS: SODIUM HYPOCHLORITE, DAKIN'S 1/2 STRENGTH (0.25%) 473 ML TOPICAL SOLN TP SCH (17:00)
[2019-06-19 17:03] VITALS: BP 115/82
--- NOTE | 2019-06-19 17:34 | Progress Note ---
Assessment and Plan 06/19: No new pulmonary recs. Continue current therapy and see below. No objection to discharge from a pulmonary standpoint. Ab Binder on at all times. Very important. Continue COPD regimen WIll continue to follow along with you. Subjective Date of service: 06/19/19 Principal diagnosis: elevated LFTs Interval history: No acute events overnight. Being discharged to facility today. Objective Vital Signs - 12hr 06/19/19 06/19/19 06/19/19 07:45 07:50 08:00 Temperature 97.9 F Pulse Rate 107 H 109 H Pulse Rate [ 105 H Anterior Throughout] Respiratory 18 Rate Respiratory 18 Rate [Anterior Throughout] Blood Pressure 114/81 114/81 O2 Sat by Pulse 100 Oximetry 06/19/19 06/19/19 06/19/19 08:30 11:15 14:45 Temperature 97.9 F Pulse Rate 102 H Pulse Rate [ 95 H Anterior Throughout] Respiratory 18 Rate Respiratory 20 Rate [Anterior Throughout] Blood Pressure 102/67 O2 Sat by Pulse 100 100 Oximetry 06/19/19 16:24 Temperature 97.9 F Pulse Rate 107 H Pulse Rate [ Anterior Throughout] Respiratory 18 Rate Respiratory Rate [Anterior Throughout] Blood Pressure 115/82 O2 Sat by Pulse 98 Oximetry Constitutional: no acute distress, alert Eyes: non-icteric ENT: oropharynx moist Neck: supple Effort: normal Ascultation: Bilateral: clear, other (coarse BS bilaterally) Cardiovascular: regular rate and rhythm (no mrg) Gastrointestinal: absent bowel sounds, non-tender Integumentary: other (necrotic ulcers lower extremities) Extremities: no cyanosis, edema (1+ generalized edema) Neurologic: normal mental status, non-focal exam Psychiatric: mood appropriate, affect normal CBC and BMP: 06/14/19 05:45 06/18/19 10:38 ABG, PT/INR, D-dimer: ABG POC ABG pH 7.320 (7.35-7.45) L 06/13/19 17:23 ABG pH 7.460 pH Units (7.350-7.450) H 06/14/19 04:45 POC ABG pCO2 53.9 (35-45) H 06/13/19 17:23 ABG pCO2 39.1 mm Hg 06/14/19 04:45 POC ABG pO2 121 (80-105) H 06/13/19 17:23 ABG pO2 107.6 mm Hg (80.0-90.0) H 06/14/19 04:45 POC ABG HCO3 27.8 (22-26 mml/L) 06/13/19 17:23 POC ABG Total CO2 29 (23-27mmol/L) 06/13/19 17:23 POC ABG O2 Sat 98 06/13/19 17:23 ABG O2 Saturation 98.0 % (95.0-99.0) 06/14/19 04:45 PT/INR, D-dimer PT 17.9 Sec. (12.2-14.9) H 06/02/19 07:15 INR 1.50 (0.87-1.13) H 06/02/19 07:15 Abnormal lab findings: Abnormal Labs 06/02/19 06/02/19 06/02/19 07:15 07:15 07:15 WBC 21.0 H RBC 5.17 H Hgb Hct MCH 27 L RDW 23.8 H Lymph % (Auto) Stokes % (Auto) Baso % (Auto) Stokes # Baso # Seg Neutrophils % Seg Neuts % (Manual) 97.0 H Lymphocytes % (Manual) 1.0 L Nucleated RBC % 3.0 H Seg Neutrophils # Seg Neutrophils # Man 20.4 H Lymphocytes # (Manual) 0.2 L Basophils # (Manual) PT 17.9 H INR 1.50 H POC ABG pH ABG pH POC ABG pCO2 POC ABG pO2 ABG pO2 ABG HCO3 ABG Base Excess VBG pH Sodium 130 L Potassium Chloride 97.1 L Carbon Dioxide 16 L BUN 47 H Creatinine Glucose 139 H POC Glucose Lactic Acid Calcium Phosphorus Magnesium Total Bilirubin 6.40 H Direct Bilirubin 4.5 H AST 50 H ALT Alkaline Phosphatase 179 H Ammonia Lactate Dehydrogenase Total Creatine Kinase 53 L CK-MB (CK-2) 5.1 H CK-MB (CK-2) Rel Index 9.6 H Troponin T NT-Pro-B Natriuret Pep > 94313 H Total Protein 5.8 L Albumin 2.1 L Prealbumin LDL Cholesterol Direct HDL Cholesterol Vancomycin Trough Crossmatch 06/02/19 06/02/19 06/02/19 07:15 07:15 07:15 WBC RBC Hgb Hct MCH RDW Lymph % (Auto) Stokes % (Auto) Baso % (Auto) Stokes # Baso # Seg Neutrophils % Seg Neuts % (Manual) Lymphocytes % (Manual) Nucleated RBC % Seg Neutrophils # Seg Neutrophils # Man Lymphocytes # (Manual) Basophils # (Manual) PT INR POC ABG pH ABG pH POC ABG pCO2 POC ABG pO2 ABG pO2 ABG HCO3 ABG Base Excess VBG pH 7.310 L Sodium Potassium Chloride Carbon Dioxide BUN Creatinine Glucose POC Glucose Lactic Acid 2.40 H* Calcium Phosphorus Magnesium Total Bilirubin Direct Bilirubin AST ALT Alkaline Phosphatase Ammonia 16.0 L Lactate Dehydrogenase Total Creatine Kinase CK-MB (CK-2) CK-MB (CK-2) Rel Index Troponin T NT-Pro-B Natriuret Pep Total Protein Albumin Prealbumin LDL Cholesterol Direct HDL Cholesterol Vancomycin Trough Crossmatch 06/02/19 06/02/19 06/02/19 07:15 15:33 15:53 WBC RBC Hgb Hct MCH RDW Lymph % (Auto) Stokes % (Auto) Baso % (Auto) Stokes # Baso # Seg Neutrophils % Seg Neuts % (Manual) Lymphocytes % (Manual) Nucleated RBC % Seg Neutrophils # Seg Neutrophils # Man Lymphocytes # (Manual) Basophils # (Manual) PT INR POC ABG pH 7.229 L ABG pH POC ABG pCO2 49.5 H POC ABG pO2 ABG pO2 ABG HCO3 ABG Base Excess VBG pH Sodium Potassium Chloride Carbon Dioxide BUN Creatinine Glucose POC Glucose 66 L Lactic Acid Calcium Phosphorus Magnesium Total Bilirubin Direct Bilirubin AST ALT Alkaline Phosphatase Ammonia Lactate Dehydrogenase Total Creatine Kinase CK-MB (CK-2) CK-MB (CK-2) Rel Index Troponin T 0.065 H NT-Pro-B Natriuret Pep Total Protein Albumin Prealbumin LDL Cholesterol Direct 31 L HDL Cholesterol 8 L Vancomycin Trough Crossmatch 06/02/19 06/02/19 06/03/19 16:40 17:10 04:06 WBC RBC Hgb Hct MCH RDW Lymph % (Auto) Stokes % (Auto) Baso % (Auto) Stokes # Baso # Seg Neutrophils % Seg Neuts % (Manual) Lymphocytes % (Manual) Nucleated RBC % Seg Neutrophils # Seg Neutrophils # Man Lymphocytes # (Manual) Basophils # (Manual) PT INR POC ABG pH 7.259 L ABG pH POC ABG pCO2 33.9 L POC ABG pO2 221 H 146 H ABG pO2 ABG HCO3 ABG Base Excess VBG pH Sodium Potassium Chloride Carbon Dioxide BUN Creatinine Glucose POC Glucose 151 H Lactic Acid Calcium Phosphorus Magnesium Total Bilirubin Direct Bilirubin AST ALT Alkaline Phosphatase Ammonia Lactate Dehydrogenase Total Creatine Kinase CK-MB (CK-2) CK-MB (CK-2) Rel Index Troponin T NT-Pro-B Natriuret Pep Total Protein Albumin Prealbumin LDL Cholesterol Direct HDL Cholesterol Vancomycin Trough Crossmatch 06/03/19 06/03/19 06/03/19 04:41 04:41 17:23 WBC 17.5 H RBC Hgb Hct MCH 27 L RDW 25.0 H Lymph % (Auto) Stokes % (Auto) Baso % (Auto) Stokes # Baso # Seg Neutrophils % Seg Neuts % (Manual) 96.0 H Lymphocytes % (Manual) 0 L Nucleated RBC % 1.0 H Seg Neutrophils # Seg Neutrophils # Man 16.8 H Lymphocytes # (Manual) 0.0 L Basophils # (Manual) PT INR POC ABG pH ABG pH POC ABG pCO2 POC ABG pO2 ABG pO2 ABG HCO3 ABG Base Excess VBG pH Sodium Potassium Chloride Carbon Dioxide 17 L BUN 42 H Creatinine Glucose 59 L POC Glucose 113 H Lactic Acid Calcium Phosphorus Magnesium Total Bilirubin 7.00 H Direct Bilirubin AST ALT Alkaline Phosphatase 153 H Ammonia Lactate Dehydrogenase Total Creatine Kinase CK-MB (CK-2) CK-MB (CK-2) Rel Index Troponin T NT-Pro-B Natriuret Pep Total Protein 5.9 L Albumin 1.7 L Prealbumin LDL Cholesterol Direct HDL Cholesterol Vancomycin Trough Crossmatch 06/03/19 06/04/19 06/04/19 23:37 05:10 05:10 WBC 16.7 H RBC Hgb Hct MCH 27 L RDW 24.5 H Lymph % (Auto) Stokes % (Auto) Baso % (Auto) Stokes # Baso # Seg Neutrophils % Seg Neuts % (Manual) 94.0 H Lymphocytes % (Manual) 3.0 L Nucleated RBC % Seg Neutrophils # Seg Neutrophils # Man 15.7 H Lymphocytes # (Manual) 0.5 L Basophils # (Manual) PT INR POC ABG pH ABG pH POC ABG pCO2 POC ABG pO2 ABG pO2 ABG HCO3 ABG Base Excess VBG pH Sodium Potassium Chloride Carbon Dioxide BUN 39 H Creatinine Glucose 136 H POC Glucose 126 H Lactic Acid Calcium 8.3 L Phosphorus Magnesium 1.30 L Total Bilirubin 7.70 H Direct Bilirubin AST ALT Alkaline Phosphatase 140 H Ammonia Lactate Dehydrogenase Total Creatine Kinase CK-MB (CK-2) CK-MB (CK-2) Rel Index Troponin T NT-Pro-B Natriuret Pep Total Protein 5.6 L Albumin 1.7 L Prealbumin LDL Cholesterol Direct HDL Cholesterol Vancomycin Trough Crossmatch 06/04/19 06/04/19 06/04/19 05:44 13:50 18:05 WBC RBC Hgb Hct MCH RDW Lymph % (Auto) Stokes % (Auto) Baso % (Auto) Stokes # Baso # Seg Neutrophils % Seg Neuts % (Manual) Lymphocytes % (Manual) Nucleated RBC % Seg Neutrophils # Seg Neutrophils # Man Lymphocytes # (Manual) Basophils # (Manual) PT INR POC ABG pH ABG pH POC ABG pCO2 POC ABG pO2 ABG pO2 ABG HCO3 ABG Base Excess VBG pH Sodium Potassium Chloride Carbon Dioxide BUN Creatinine Glucose POC Glucose 124 H 137 H 120 H Lactic Acid Calcium Phosphorus Magnesium Total Bilirubin Direct Bilirubin AST ALT Alkaline Phosphatase Ammonia Lactate Dehydrogenase Total Creatine Kinase CK-MB (CK-2) CK-MB (CK-2) Rel Index Troponin T NT-Pro-B Natriuret Pep Total Protein Albumin Prealbumin LDL Cholesterol Direct HDL Cholesterol Vancomycin Trough Crossmatch 06/05/19 06/05/19 06/05/19 00:58 04:20 04:20 WBC 15.0 H RBC Hgb Hct MCH 27 L RDW 25.0 H Lymph % (Auto) Stokes % (Auto) Baso % (Auto) Stokes # Baso # Seg Neutrophils % Seg Neuts % (Manual) Lymphocytes % (Manual) Nucleated RBC % Seg Neutrophils # Seg Neutrophils # Man Lymphocytes # (Manual) Basophils # (Manual) PT INR POC ABG pH ABG pH POC ABG pCO2 POC ABG pO2 ABG pO2 ABG HCO3 ABG Base Excess VBG pH Sodium Potassium Chloride Carbon Dioxide BUN 52 H Creatinine Glucose 137 H POC Glucose 114 H Lactic Acid Calcium 7.8 L Phosphorus Magnesium Total Bilirubin Direct Bilirubin AST ALT Alkaline Phosphatase Ammonia Lactate Dehydrogenase Total Creatine Kinase CK-MB (CK-2) CK-MB (CK-2) Rel Index Troponin T NT-Pro-B Natriuret Pep Total Protein Albumin Prealbumin LDL Cholesterol Direct HDL Cholesterol Vancomycin Trough Crossmatch 06/05/19 06/05/19 06/05/19 05:39 05:45 09:45 WBC RBC Hgb Hct MCH RDW Lymph % (Auto) Stokes % (Auto) Baso % (Auto) Stokes # Baso # Seg Neutrophils % Seg Neuts % (Manual) Lymphocytes % (Manual) Nucleated RBC % Seg Neutrophils # Seg Neutrophils # Man Lymphocytes # (Manual) Basophils # (Manual) PT INR POC ABG pH ABG pH POC ABG pCO2 POC ABG pO2 108 H ABG pO2 ABG HCO3 ABG Base Excess VBG pH Sodium Potassium Chloride Carbon Dioxide BUN Creatinine Glucose POC Glucose 111 H Lactic Acid Calcium Phosphorus Magnesium Total Bilirubin Direct Bilirubin AST ALT Alkaline Phosphatase Ammonia Lactate Dehydrogenase Total Creatine Kinase CK-MB (CK-2) CK-MB (CK-2) Rel Index Troponin T NT-Pro-B Natriuret Pep Total Protein Albumin Prealbumin LDL Cholesterol Direct HDL Cholesterol Vancomycin Trough 20.1 H Crossmatch 06/05/19 06/05/19 06/06/19 13:25 18:27 00:01 WBC RBC Hgb Hct MCH RDW Lymph % (Auto) Stokes % (Auto) Baso % (Auto) Stokes # Baso # Seg Neutrophils % Seg Neuts % (Manual) Lymphocytes % (Manual) Nucleated RBC % Seg Neutrophils # Seg Neutrophils # Man Lymphocytes # (Manual) Basophils # (Manual) PT INR POC ABG pH ABG pH POC ABG pCO2 POC ABG pO2 ABG pO2 ABG HCO3 ABG Base Excess VBG pH Sodium Potassium Chloride Carbon Dioxide BUN Creatinine Glucose POC Glucose 152 H 194 H 153 H Lactic Acid Calcium Phosphorus Magnesium Total Bilirubin Direct Bilirubin AST ALT Alkaline Phosphatase Ammonia Lactate Dehydrogenase Total Creatine Kinase CK-MB (CK-2) CK-MB (CK-2) Rel Index Troponin T NT-Pro-B Natriuret Pep Total Protein Albumin Prealbumin LDL Cholesterol Direct HDL Cholesterol Vancomycin Trough Crossmatch 06/06/19 06/06/19 06/06/19 04:20 05:45 12:32 WBC RBC Hgb Hct MCH RDW Lymph % (Auto) Stokes % (Auto) Baso % (Auto) Stokes # Baso # Seg Neutrophils % Seg Neuts % (Manual) Lymphocytes % (Manual) Nucleated RBC % Seg Neutrophils # Seg Neutrophils # Man Lymphocytes # (Manual) Basophils # (Manual) PT INR POC ABG pH ABG pH POC ABG pCO2 POC ABG pO2 ABG pO2 ABG HCO3 ABG Base Excess VBG pH Sodium Potassium Chloride Carbon Dioxide BUN 62 H Creatinine Glucose 141 H POC Glucose 161 H 131 H Lactic Acid Calcium 7.7 L Phosphorus 2.40 L Magnesium Total Bilirubin Direct Bilirubin AST ALT Alkaline Phosphatase Ammonia Lactate Dehydrogenase Total Creatine Kinase CK-MB (CK-2) CK-MB (CK-2) Rel Index Troponin T NT-Pro-B Natriuret Pep Total Protein Albumin Prealbumin LDL Cholesterol Direct HDL Cholesterol Vancomycin Trough Crossmatch 06/07/19 06/07/19 06/07/19 02:07 05:36 05:36 WBC 25.3 H RBC Hgb 10.8 L Hct 33.7 L MCH 27 L RDW 26.7 H Lymph % (Auto) Stokes % (Auto) Baso % (Auto) Stokes # Baso # Seg Neutrophils % Seg Neuts % (Manual) Lymphocytes % (Manual) Nucleated RBC % Seg Neutrophils # Seg Neutrophils # Man Lymphocytes # (Manual) Basophils # (Manual) PT INR POC ABG pH ABG pH POC ABG pCO2 POC ABG pO2 ABG pO2 ABG HCO3 ABG Base Excess VBG pH Sodium 135 L Potassium Chloride 93.6 L Carbon Dioxide BUN 58 H Creatinine Glucose 131 H POC Glucose 165 H Lactic Acid Calcium 8.0 L Phosphorus Magnesium Total Bilirubin Direct Bilirubin AST ALT Alkaline Phosphatase Ammonia Lactate Dehydrogenase Total Creatine Kinase CK-MB (CK-2) CK-MB (CK-2) Rel Index Troponin T NT-Pro-B Natriuret Pep Total Protein Albumin Prealbumin LDL Cholesterol Direct HDL Cholesterol Vancomycin Trough Crossmatch 06/07/19 06/07/19 06/07/19 09:44 18:05 23:51 WBC RBC Hgb Hct MCH RDW Lymph % (Auto) Stokes % (Auto) Baso % (Auto) Stokes # Baso # Seg Neutrophils % Seg Neuts % (Manual) Lymphocytes % (Manual) Nucleated RBC % Seg Neutrophils # Seg Neutrophils # Man Lymphocytes # (Manual) Basophils # (Manual) PT INR POC ABG pH 7.508 H ABG pH POC ABG pCO2 POC ABG pO2 75 L ABG pO2 ABG HCO3 ABG Base Excess VBG pH Sodium Potassium Chloride Carbon Dioxide BUN Creatinine Glucose POC Glucose 137 H 180 H Lactic Acid Calcium Phosphorus Magnesium Total Bilirubin Direct Bilirubin AST ALT Alkaline Phosphatase Ammonia Lactate Dehydrogenase Total Creatine Kinase CK-MB (CK-2) CK-MB (CK-2) Rel Index Troponin T NT-Pro-B Natriuret Pep Total Protein Albumin Prealbumin LDL Cholesterol Direct HDL Cholesterol Vancomycin Trough Crossmatch 11/06/08/19 06/08/19 05:07 05:07 06:26 WBC 25.1 H RBC 3.21 L Hgb 8.8 L Hct 27.3 L D MCH RDW 27.7 H Lymph % (Auto) Stokes % (Auto) Baso % (Auto) Stokes # Baso # Seg Neutrophils % Seg Neuts % (Manual) Lymphocytes % (Manual) Nucleated RBC % Seg Neutrophils # Seg Neutrophils # Man Lymphocytes # (Manual) Basophils # (Manual) PT INR POC ABG pH ABG pH POC ABG pCO2 POC ABG pO2 ABG pO2 ABG HCO3 ABG Base Excess VBG pH Sodium 134 L Potassium Chloride 97.2 L Carbon Dioxide BUN 49 H Creatinine 0.7 L Glucose 144 H POC Glucose 149 H Lactic Acid Calcium 7.7 L Phosphorus Magnesium Total Bilirubin Direct Bilirubin AST ALT Alkaline Phosphatase Ammonia Lactate Dehydrogenase Total Creatine Kinase CK-MB (CK-2) CK-MB (CK-2) Rel Index Troponin T NT-Pro-B Natriuret Pep Total Protein Albumin Prealbumin LDL Cholesterol Direct HDL Cholesterol Vancomycin Trough Crossmatch 06/08/19 06/08/19 06/09/19 11:18 17:43 00:04 WBC RBC Hgb Hct MCH RDW Lymph % (Auto) Stokes % (Auto) Baso % (Auto) Stokes # Baso # Seg Neutrophils % Seg Neuts % (Manual) Lymphocytes % (Manual) Nucleated RBC % Seg Neutrophils # Seg Neutrophils # Man Lymphocytes # (Manual) Basophils # (Manual) PT INR POC ABG pH ABG pH POC ABG pCO2 POC ABG pO2 ABG pO2 ABG HCO3 ABG Base Excess VBG pH Sodium Potassium Chloride Carbon Dioxide BUN Creatinine Glucose POC Glucose 134 H 153 H 161 H Lactic Acid Calcium Phosphorus Magnesium Total Bilirubin Direct Bilirubin AST ALT Alkaline Phosphatase Ammonia Lactate Dehydrogenase Total Creatine Kinase CK-MB (CK-2) CK-MB (CK-2) Rel Index Troponin T NT-Pro-B Natriuret Pep Total Protein Albumin Prealbumin LDL Cholesterol Direct HDL Cholesterol Vancomycin Trough Crossmatch 06/09/19 06/09/19 06/09/19 05:51 08:58 11:53 WBC RBC Hgb Hct MCH RDW Lymph % (Auto) Stokes % (Auto) Baso % (Auto) Stokes # Baso # Seg Neutrophils % Seg Neuts % (Manual) Lymphocytes % (Manual) Nucleated RBC % Seg Neutrophils # Seg Neutrophils # Man Lymphocytes # (Manual) Basophils # (Manual) PT INR POC ABG pH ABG pH POC ABG pCO2 POC ABG pO2 ABG pO2 ABG HCO3 ABG Base Excess VBG pH Sodium Potassium Chloride 97.1 L Carbon Dioxide BUN 40 H Creatinine 0.6 L Glucose 161 H POC Glucose 183 H 189 H Lactic Acid Calcium 7.9 L Phosphorus Magnesium Total Bilirubin Direct Bilirubin AST ALT Alkaline Phosphatase Ammonia Lactate Dehydrogenase Total Creatine Kinase CK-MB (CK-2) CK-MB (CK-2) Rel Index Troponin T NT-Pro-B Natriuret Pep Total Protein Albumin Prealbumin LDL Cholesterol Direct HDL Cholesterol Vancomycin Trough Crossmatch 06/09/19 06/10/19 06/10/19 17:30 05:00 08:36 WBC RBC Hgb Hct MCH RDW Lymph % (Auto) Stokes % (Auto) Baso % (Auto) Stokes # Baso # Seg Neutrophils % Seg Neuts % (Manual) Lymphocytes % (Manual) Nucleated RBC % Seg Neutrophils # Seg Neutrophils # Man Lymphocytes # (Manual) Basophils # (Manual) PT INR POC ABG pH ABG pH POC ABG pCO2 POC ABG pO2 ABG pO2 ABG HCO3 ABG Base Excess VBG pH Sodium Potassium Chloride Carbon Dioxide BUN Creatinine Glucose POC Glucose 145 H 173 H 119 H Lactic Acid Calcium Phosphorus Magnesium Total Bilirubin Direct Bilirubin AST ALT Alkaline Phosphatase Ammonia Lactate Dehydrogenase Total Creatine Kinase CK-MB (CK-2) CK-MB (CK-2) Rel Index Troponin T NT-Pro-B Natriuret Pep Total Protein Albumin Prealbumin LDL Cholesterol Direct HDL Cholesterol Vancomycin Trough Crossmatch 06/10/19 06/10/19 06/10/19 09:25 09:25 09:25 WBC 18.9 H RBC 2.61 L Hgb 7.3 L Hct 22.8 L MCH RDW 29.2 H Lymph % (Auto) Stokes % (Auto) Baso % (Auto) Stokes # Baso # Seg Neutrophils % Seg Neuts % (Manual) Lymphocytes % (Manual) Nucleated RBC % Seg Neutrophils # Seg Neutrophils # Man Lymphocytes # (Manual) Basophils # (Manual) PT INR POC ABG pH ABG pH POC ABG pCO2 POC ABG pO2 ABG pO2 ABG HCO3 ABG Base Excess VBG pH Sodium Potassium Chloride 95.5 L Carbon Dioxide 31 H BUN 38 H Creatinine Glucose 115 H POC Glucose Lactic Acid Calcium 7.8 L Phosphorus Magnesium Total Bilirubin 4.80 H Direct Bilirubin 3.7 H AST 127 H ALT 93 H Alkaline Phosphatase 180 H Ammonia Lactate Dehydrogenase Total Creatine Kinase CK-MB (CK-2) CK-MB (CK-2) Rel Index Troponin T NT-Pro-B Natriuret Pep Total Protein 5.3 L Albumin 1.5 L Prealbumin LDL Cholesterol Direct HDL Cholesterol Vancomycin Trough Crossmatch 06/10/19 06/10/19 06/10/19 11:23 16:38 21:11 WBC RBC Hgb Hct MCH RDW Lymph % (Auto) Stokes % (Auto) Baso % (Auto) Stokes # Baso # Seg Neutrophils % Seg Neuts % (Manual) Lymphocytes % (Manual) Nucleated RBC % Seg Neutrophils # Seg Neutrophils # Man Lymphocytes # (Manual) Basophils # (Manual) PT INR POC ABG pH ABG pH POC ABG pCO2 POC ABG pO2 ABG pO2 ABG HCO3 ABG Base Excess VBG pH Sodium Potassium Chloride Carbon Dioxide BUN Creatinine Glucose POC Glucose 175 H 164 H 159 H Lactic Acid Calcium Phosphorus Magnesium Total Bilirubin Direct Bilirubin AST ALT Alkaline Phosphatase Ammonia Lactate Dehydrogenase Total Creatine Kinase CK-MB (CK-2) CK-MB (CK-2) Rel Index Troponin T NT-Pro-B Natriuret Pep Total Protein Albumin Prealbumin LDL Cholesterol Direct HDL Cholesterol Vancomycin Trough Crossmatch 06/10/19 06/11/19 06/11/19 23:23 00:22 05:58 WBC RBC Hgb Hct MCH RDW Lymph % (Auto) Stokes % (Auto) Baso % (Auto) Stokes # Baso # Seg Neutrophils % Seg Neuts % (Manual) Lymphocytes % (Manual) Nucleated RBC % Seg Neutrophils # Seg Neutrophils # Man Lymphocytes # (Manual) Basophils # (Manual) PT INR POC ABG pH ABG pH POC ABG pCO2 POC ABG pO2 ABG pO2 ABG HCO3 ABG Base Excess VBG pH Sodium 135 L Potassium Chloride 95.7 L Carbon Dioxide 33 H BUN 36 H Creatinine 0.7 L Glucose 155 H POC Glucose 188 H Lactic Acid Calcium 7.7 L Phosphorus Magnesium Total Bilirubin 4.10 H Direct Bilirubin AST 89 H ALT 77 H Alkaline Phosphatase 154 H Ammonia Lactate Dehydrogenase Total Creatine Kinase CK-MB (CK-2) CK-MB (CK-2) Rel Index Troponin T NT-Pro-B Natriuret Pep Total Protein 5.3 L Albumin 1.7 L Prealbumin 0.106 L LDL Cholesterol Direct HDL Cholesterol Vancomycin Trough Crossmatch 06/11/19 06/11/19 06/11/19 06:53 11:17 16:21 WBC RBC Hgb Hct MCH RDW Lymph % (Auto) Stokes % (Auto) Baso % (Auto) Stokes # Baso # Seg Neutrophils % Seg Neuts % (Manual) Lymphocytes % (Manual) Nucleated RBC % Seg Neutrophils # Seg Neutrophils # Man Lymphocytes # (Manual) Basophils # (Manual) PT INR POC ABG pH ABG pH POC ABG pCO2 POC ABG pO2 ABG pO2 ABG HCO3 ABG Base Excess VBG pH Sodium Potassium Chloride Carbon Dioxide BUN Creatinine Glucose POC Glucose 198 H 157 H 190 H Lactic Acid Calcium Phosphorus Magnesium Total Bilirubin Direct Bilirubin AST ALT Alkaline Phosphatase Ammonia Lactate Dehydrogenase Total Creatine Kinase CK-MB (CK-2) CK-MB (CK-2) Rel Index Troponin T NT-Pro-B Natriuret Pep Total Protein Albumin Prealbumin LDL Cholesterol Direct HDL Cholesterol Vancomycin Trough Crossmatch 06/12/19 06/12/19 06/12/19 00:17 05:27 06:27 WBC RBC Hgb Hct MCH RDW Lymph % (Auto) Stokes % (Auto) Baso % (Auto) Stokes # Baso # Seg Neutrophils % Seg Neuts % (Manual) Lymphocytes % (Manual) Nucleated RBC % Seg Neutrophils # Seg Neutrophils # Man Lymphocytes # (Manual) Basophils # (Manual) PT INR POC ABG pH ABG pH POC ABG pCO2 POC ABG pO2 ABG pO2 ABG HCO3 ABG Base Excess VBG pH Sodium 136 L Potassium Chloride 95.6 L Carbon Dioxide BUN 39 H Creatinine Glucose 144 H POC Glucose 139 H 169 H Lactic Acid Calcium 8.3 L Phosphorus Magnesium Total Bilirubin Direct Bilirubin AST ALT Alkaline Phosphatase Ammonia Lactate Dehydrogenase Total Creatine Kinase CK-MB (CK-2) CK-MB (CK-2) Rel Index Troponin T NT-Pro-B Natriuret Pep Total Protein Albumin Prealbumin LDL Cholesterol Direct HDL Cholesterol Vancomycin Trough Crossmatch 06/12/19 06/13/19 06/13/19 11:52 00:27 06:00 WBC RBC Hgb Hct MCH RDW Lymph % (Auto) Stokes % (Auto) Baso % (Auto) Stokes # Baso # Seg Neutrophils % Seg Neuts % (Manual) Lymphocytes % (Manual) Nucleated RBC % Seg Neutrophils # Seg Neutrophils # Man Lymphocytes # (Manual) Basophils # (Manual) PT INR POC ABG pH ABG pH POC ABG pCO2 POC ABG pO2 ABG pO2 ABG HCO3 ABG Base Excess VBG pH Sodium Potassium Chloride Carbon Dioxide BUN Creatinine Glucose POC Glucose 146 H 151 H 133 H Lactic Acid Calcium Phosphorus Magnesium Total Bilirubin Direct Bilirubin AST ALT Alkaline Phosphatase Ammonia Lactate Dehydrogenase Total Creatine Kinase CK-MB (CK-2) CK-MB (CK-2) Rel Index Troponin T NT-Pro-B Natriuret Pep Total Protein Albumin Prealbumin LDL Cholesterol Direct HDL Cholesterol Vancomycin Trough Crossmatch 06/13/19 06/13/19 06/13/19 06:11 06:11 06:11 WBC 17.0 H RBC 2.32 L Hgb 6.8 L Hct 20.9 L MCH RDW 29.2 H Lymph % (Auto) Stokes % (Auto) Baso % (Auto) Stokes # Baso # Seg Neutrophils % Seg Neuts % (Manual) 92.0 H Lymphocytes % (Manual) 2.0 L Nucleated RBC % Seg Neutrophils # Seg Neutrophils # Man 15.6 H Lymphocytes # (Manual) 0.3 L Basophils # (Manual) 0.2 H PT INR POC ABG pH ABG pH POC ABG pCO2 POC ABG pO2 ABG pO2 ABG HCO3 ABG Base Excess VBG pH Sodium 134 L Potassium Chloride 96.1 L Carbon Dioxide BUN 42 H Creatinine Glucose 126 H POC Glucose Lactic Acid Calcium 8.0 L Phosphorus Magnesium Total Bilirubin Direct Bilirubin AST ALT Alkaline Phosphatase Ammonia Lactate Dehydrogenase 214 H Total Creatine Kinase CK-MB (CK-2) CK-MB (CK-2) Rel Index Troponin T NT-Pro-B Natriuret Pep Total Protein Albumin Prealbumin LDL Cholesterol Direct HDL Cholesterol Vancomycin Trough Crossmatch 06/13/19 06/13/19 06/13/19 11:17 11:25 16:57 WBC RBC Hgb Hct MCH RDW Lymph % (Auto) Stokes % (Auto) Baso % (Auto) Stokes # Baso # Seg Neutrophils % Seg Neuts % (Manual) Lymphocytes % (Manual) Nucleated RBC % Seg Neutrophils # Seg Neutrophils # Man Lymphocytes # (Manual) Basophils # (Manual) PT INR POC ABG pH ABG pH POC ABG pCO2 POC ABG pO2 ABG pO2 ABG HCO3 ABG Base Excess VBG pH Sodium Potassium Chloride Carbon Dioxide BUN Creatinine Glucose POC Glucose 185 H 224 H Lactic Acid Calcium Phosphorus Magnesium Total Bilirubin Direct Bilirubin AST ALT Alkaline Phosphatase Ammonia Lactate Dehydrogenase Total Creatine Kinase CK-MB (CK-2) CK-MB (CK-2) Rel Index Troponin T NT-Pro-B Natriuret Pep Total Protein Albumin Prealbumin LDL Cholesterol Direct HDL Cholesterol Vancomycin Trough Crossmatch See Detail 06/13/19 06/13/19 06/14/19 17:05 17:23 04:45 WBC RBC Hgb 9.2 L Hct 28.9 L D MCH RDW Lymph % (Auto) Stokes % (Auto) Baso % (Auto) Stokes # Baso # Seg Neutrophils % Seg Neuts % (Manual) Lymphocytes % (Manual) Nucleated RBC % Seg Neutrophils # Seg Neutrophils # Man Lymphocytes # (Manual) Basophils # (Manual) PT INR POC ABG pH 7.320 L ABG pH 7.460 H POC ABG pCO2 53.9 H POC ABG pO2 121 H ABG pO2 107.6 H ABG HCO3 27.2 H ABG Base Excess 3.3 H VBG pH Sodium Potassium Chloride Carbon Dioxide BUN Creatinine Glucose POC Glucose Lactic Acid Calcium Phosphorus Magnesium Total Bilirubin Direct Bilirubin AST ALT Alkaline Phosphatase Ammonia Lactate Dehydrogenase Total Creatine Kinase CK-MB (CK-2) CK-MB (CK-2) Rel Index Troponin T NT-Pro-B Natriuret Pep Total Protein Albumin Prealbumin LDL Cholesterol Direct HDL Cholesterol Vancomycin Trough Crossmatch 06/14/19 06/14/19 06/14/19 05:45 05:45 11:52 WBC 16.7 H RBC 3.45 L Hgb 10.2 L Hct 31.1 L MCH RDW 24.2 H Lymph % (Auto) 7.4 L Stokes % (Auto) 8.5 H Baso % (Auto) 2.3 H Stokes # 1.4 H Baso # 0.4 H Seg Neutrophils % 80.4 H Seg Neuts % (Manual) Lymphocytes % (Manual) Nucleated RBC % Seg Neutrophils # 13.4 H Seg Neutrophils # Man Lymphocytes # (Manual) Basophils # (Manual) PT INR POC ABG pH ABG pH POC ABG pCO2 POC ABG pO2 ABG pO2 ABG HCO3 ABG Base Excess VBG pH Sodium Potassium Chloride Carbon Dioxide BUN 43 H Creatinine Glucose POC Glucose 140 H Lactic Acid Calcium 7.7 L Phosphorus Magnesium Total Bilirubin Direct Bilirubin AST ALT Alkaline Phosphatase Ammonia Lactate Dehydrogenase Total Creatine Kinase CK-MB (CK-2) CK-MB (CK-2) Rel Index Troponin T NT-Pro-B Natriuret Pep Total Protein Albumin Prealbumin LDL Cholesterol Direct HDL Cholesterol Vancomycin Trough Crossmatch 06/14/19 06/14/19 06/15/19 18:20 23:29 05:10 WBC RBC Hgb Hct MCH RDW Lymph % (Auto) Stokes % (Auto) Baso % (Auto) Stokes # Baso # Seg Neutrophils % Seg Neuts % (Manual) Lymphocytes % (Manual) Nucleated RBC % Seg Neutrophils # Seg Neutrophils # Man Lymphocytes # (Manual) Basophils # (Manual) PT INR POC ABG pH ABG pH POC ABG pCO2 POC ABG pO2 ABG pO2 ABG HCO3 ABG Base Excess VBG pH Sodium Potassium 3.4 L Chloride Carbon Dioxide BUN 37 H Creatinine Glucose 138 H POC Glucose 150 H 184 H Lactic Acid Calcium 8.0 L Phosphorus Magnesium Total Bilirubin Direct Bilirubin AST ALT Alkaline Phosphatase Ammonia Lactate Dehydrogenase Total Creatine Kinase CK-MB (CK-2) CK-MB (CK-2) Rel Index Troponin T NT-Pro-B Natriuret Pep Total Protein Albumin Prealbumin LDL Cholesterol Direct HDL Cholesterol Vancomycin Trough Crossmatch 06/15/19 06/15/19 06/15/19 05:23 12:34 21:27 WBC RBC Hgb Hct MCH RDW Lymph % (Auto) Stokes % (Auto) Baso % (Auto) Stokes # Baso # Seg Neutrophils % Seg Neuts % (Manual) Lymphocytes % (Manual) Nucleated RBC % Seg Neutrophils # Seg Neutrophils # Man Lymphocytes # (Manual) Basophils # (Manual) PT INR POC ABG pH ABG pH POC ABG pCO2 POC ABG pO2 ABG pO2 ABG HCO3 ABG Base Excess VBG pH Sodium Potassium Chloride Carbon Dioxide BUN Creatinine Glucose POC Glucose 132 H 176 H 212 H Lactic Acid Calcium Phosphorus Magnesium Total Bilirubin Direct Bilirubin AST ALT Alkaline Phosphatase Ammonia Lactate Dehydrogenase Total Creatine Kinase CK-MB (CK-2) CK-MB (CK-2) Rel Index Troponin T NT-Pro-B Natriuret Pep Total Protein Albumin Prealbumin LDL Cholesterol Direct HDL Cholesterol Vancomycin Trough Crossmatch 06/16/19 06/16/19 06/16/19 04:30 06:09 06:31 WBC RBC Hgb Hct MCH RDW Lymph % (Auto) Stokes % (Auto) Baso % (Auto) Stokes # Baso # Seg Neutrophils % Seg Neuts % (Manual) Lymphocytes % (Manual) Nucleated RBC % Seg Neutrophils # Seg Neutrophils # Man Lymphocytes # (Manual) Basophils # (Manual) PT INR POC ABG pH ABG pH POC ABG pCO2 POC ABG pO2 ABG pO2 ABG HCO3 ABG Base Excess VBG pH Sodium Potassium Chloride Carbon Dioxide BUN 39 H Creatinine Glucose 132 H POC Glucose 153 H Lactic Acid Calcium 7.8 L Phosphorus Magnesium Total Bilirubin 3.20 H 3.30 H Direct Bilirubin 2.4 H AST ALT Alkaline Phosphatase 130 H 137 H Ammonia Lactate Dehydrogenase Total Creatine Kinase CK-MB (CK-2) CK-MB (CK-2) Rel Index Troponin T NT-Pro-B Natriuret Pep Total Protein 6.2 L 5.7 L Albumin 1.8 L 1.8 L Prealbumin LDL Cholesterol Direct HDL Cholesterol Vancomycin Trough Crossmatch 06/16/19 06/16/19 06/16/19 11:59 18:08 21:48 WBC RBC Hgb Hct MCH RDW Lymph % (Auto) Stokes % (Auto) Baso % (Auto) Stokes # Baso # Seg Neutrophils % Seg Neuts % (Manual) Lymphocytes % (Manual) Nucleated RBC % Seg Neutrophils # Seg Neutrophils # Man Lymphocytes # (Manual) Basophils # (Manual) PT INR POC ABG pH ABG pH POC ABG pCO2 POC ABG pO2 ABG pO2 ABG HCO3 ABG Base Excess VBG pH Sodium Potassium Chloride Carbon Dioxide BUN Creatinine Glucose POC Glucose 158 H 198 H 130 H Lactic Acid Calcium Phosphorus Magnesium Total Bilirubin Direct Bilirubin AST ALT Alkaline Phosphatase Ammonia Lactate Dehydrogenase Total Creatine Kinase CK-MB (CK-2) CK-MB (CK-2) Rel Index Troponin T NT-Pro-B Natriuret Pep Total Protein Albumin Prealbumin LDL Cholesterol Direct HDL Cholesterol Vancomycin Trough Crossmatch 06/17/19 06/17/19 06/17/19 06:03 10:35 12:21 WBC RBC Hgb Hct MCH RDW Lymph % (Auto) Stokes % (Auto) Baso % (Auto) Stokes # Baso # Seg Neutrophils % Seg Neuts % (Manual) Lymphocytes % (Manual) Nucleated RBC % Seg Neutrophils # Seg Neutrophils # Man Lymphocytes # (Manual) Basophils # (Manual) PT INR POC ABG pH ABG pH POC ABG pCO2 POC ABG pO2 ABG pO2 ABG HCO3 ABG Base Excess VBG pH Sodium 134 L Potassium Chloride 96.2 L Carbon Dioxide BUN 49 H Creatinine Glucose 119 H POC Glucose 161 H 151 H Lactic Acid Calcium 7.7 L Phosphorus Magnesium Total Bilirubin Direct Bilirubin AST ALT Alkaline Phosphatase Ammonia Lactate Dehydrogenase Total Creatine Kinase CK-MB (CK-2) CK-MB (CK-2) Rel Index Troponin T NT-Pro-B Natriuret Pep Total Protein Albumin Prealbumin LDL Cholesterol Direct HDL Cholesterol Vancomycin Trough Crossmatch 06/17/19 06/18/19 06/18/19 18:36 01:07 07:13 WBC RBC Hgb Hct MCH RDW Lymph % (Auto) Stokes % (Auto) Baso % (Auto) Stokes # Baso # Seg Neutrophils % Seg Neuts % (Manual) Lymphocytes % (Manual) Nucleated RBC % Seg Neutrophils # Seg Neutrophils # Man Lymphocytes # (Manual) Basophils # (Manual) PT INR POC ABG pH ABG pH POC ABG pCO2 POC ABG pO2 ABG pO2 ABG HCO3 ABG Base Excess VBG pH Sodium Potassium Chloride Carbon Dioxide BUN Creatinine Glucose POC Glucose 136 H 146 H 140 H Lactic Acid Calcium Phosphorus Magnesium Total Bilirubin Direct Bilirubin AST ALT Alkaline Phosphatase Ammonia Lactate Dehydrogenase Total Creatine Kinase CK-MB (CK-2) CK-MB (CK-2) Rel Index Troponin T NT-Pro-B Natriuret Pep Total Protein Albumin Prealbumin LDL Cholesterol Direct HDL Cholesterol Vancomycin Trough Crossmatch 06/18/19 06/18/19 06/18/19 10:38 11:58 17:27 WBC RBC Hgb Hct MCH RDW Lymph % (Auto) Stokes % (Auto) Baso % (Auto) Stokes # Baso # Seg Neutrophils % Seg Neuts % (Manual) Lymphocytes % (Manual) Nucleated RBC % Seg Neutrophils # Seg Neutrophils # Man Lymphocytes # (Manual) Basophils # (Manual) PT INR POC ABG pH ABG pH POC ABG pCO2 POC ABG pO2 ABG pO2 ABG HCO3 ABG Base Excess VBG pH Sodium 136 L Potassium Chloride 96.4 L Carbon Dioxide BUN 51 H Creatinine Glucose 102 H POC Glucose 126 H 142 H Lactic Acid Calcium 7.8 L Phosphorus Magnesium Total Bilirubin 2.70 H Direct Bilirubin AST 46 H ALT Alkaline Phosphatase 166 H Ammonia Lactate Dehydrogenase Total Creatine Kinase CK-MB (CK-2) CK-MB (CK-2) Rel Index Troponin T NT-Pro-B Natriuret Pep Total Protein Albumin 2.1 L Prealbumin LDL Cholesterol Direct HDL Cholesterol Vancomycin Trough Crossmatch 06/18/19 06/19/19 19:21 07:56 WBC RBC Hgb Hct MCH RDW Lymph % (Auto) Stokes % (Auto) Baso % (Auto) Stokes # Baso # Seg Neutrophils % Seg Neuts % (Manual) Lymphocytes % (Manual) Nucleated RBC % Seg Neutrophils # Seg Neutrophils # Man Lymphocytes # (Manual) Basophils # (Manual) PT INR POC ABG pH ABG pH POC ABG pCO2 POC ABG pO2 ABG pO2 ABG HCO3 ABG Base Excess VBG pH Sodium Potassium Chloride Carbon Dioxide BUN Creatinine Glucose POC Glucose 164 H 409 H Lactic Acid Calcium Phosphorus Magnesium Total Bilirubin Direct Bilirubin AST ALT Alkaline Phosphatase Ammonia Lactate Dehydrogenase Total Creatine Kinase CK-MB (CK-2) CK-MB (CK-2) Rel Index Troponin T NT-Pro-B Natriuret Pep Total Protein Albumin Prealbumin LDL Cholesterol Direct HDL Cholesterol Vancomycin Trough Crossmatch
== END 2019-06-19 21:57 | DRG 853 ==
LOC: ED 06:17 → 4A 10:06 → CC1 11:31 → 3B-SURG 06-06 15:51 → CC1 06-13 18:45 → 3B-SURG 06-15 18:45
PROVIDERS: ADMIT Internal Medicine; ATTEND Internal Medicine
PROC: 0DU707Z Supplement Stomach, Pylorus with Autologous Tissue Substitute, Open Approach (ICD-10-PCS; principal; 2019-06-02)
PROC: 4A033R1 Measurement of Arterial Saturation, Peripheral, Percutaneous Approach (ICD-10-PCS; 2019-06-02)
PROC: 5A1945Z Respiratory Ventilation, 24-96 Consecutive Hours (ICD-10-PCS; 2019-06-02)
PROC: 0BH17EZ Insertion of Endotracheal Airway into Trachea, Via Natural or Artificial Opening (ICD-10-PCS; 2019-06-02)
PROC: 0L9W0ZZ Drainage of Left Foot Tendon, Open Approach (ICD-10-PCS; 2019-06-05)
PROC: 0L9V0ZZ Drainage of Right Foot Tendon, Open Approach (ICD-10-PCS; 2019-06-05)
PROC: 0JBR0ZZ Excision of Left Foot Subcutaneous Tissue and Fascia, Open Approach (ICD-10-PCS; 2019-06-12)
PROC: 0JBQ0ZZ Excision of Right Foot Subcutaneous Tissue and Fascia, Open Approach (ICD-10-PCS; 2019-06-12)
PROC: 0LBP0ZZ Excision of Left Lower Leg Tendon, Open Approach (ICD-10-PCS; 2019-06-12)
PROC: 02HV33Z Insertion of Infusion Device into Superior Vena Cava, Percutaneous Approach (ICD-10-PCS; 2019-06-12)
PROC: 0WJG0ZZ Inspection of Peritoneal Cavity, Open Approach (ICD-10-PCS; 2019-06-13)
PROC: 30233N1 Transfusion of Nonautologous Red Blood Cells into Peripheral Vein, Percutaneous Approach (ICD-10-PCS; 2019-06-13)
PROC: 5A1945Z Respiratory Ventilation, 24-96 Consecutive Hours (ICD-10-PCS; 2019-06-13)
PROC: 0BH17EZ Insertion of Endotracheal Airway into Trachea, Via Natural or Artificial Opening (ICD-10-PCS; 2019-06-13)
PROC: 5A09357 Assistance with Respiratory Ventilation, Less than 24 Consecutive Hours, Continuous Positive Airway Pressure (ICD-10-PCS; 2019-06-15)
DX: A41.9 Sepsis, unspecified organism (principal); E43 Unspecified severe protein-calorie malnutrition; J96.01 Acute respiratory failure with hypoxia; G93.41 Metabolic encephalopathy; K25.5 Chronic or unspecified gastric ulcer with perforation; I42.9 Cardiomyopathy, unspecified; I47.2 Ventricular tachycardia; I27.20 Pulmonary hypertension, unspecified; L02.611 Cutaneous abscess of right foot; E80.6 Other disorders of bilirubin metabolism; I50.22 Chronic systolic (congestive) heart failure; E11.22 Type 2 diabetes mellitus with diabetic chronic kidney disease; E11.51 Type 2 diabetes mellitus with diabetic peripheral angiopathy without gangrene; K66.8 Other specified disorders of peritoneum; L03.116 Cellulitis of left lower limb; E87.6 Hypokalemia; L03.115 Cellulitis of right lower limb; L97.828 Non-pressure chronic ulcer of other part of left lower leg with other specified severity; L97.818 Non-pressure chronic ulcer of other part of right lower leg with other specified severity; E11.622 Type 2 diabetes mellitus with other skin ulcer; D64.9 Anemia, unspecified; E83.42 Hypomagnesemia; I13.0 Hypertensive heart and chronic kidney disease with heart failure and stage 1 through stage 4 chronic kidney disease, or unspecified chronic kidney disease; R18.8 Other ascites; T81.31XA Disruption of external operation (surgical) wound, not elsewhere classified, initial encounter; Y83.8 Other surgical procedures as the cause of abnormal reaction of the patient, or of later complication, without mention of misadventure at the time of the procedure; Y92.238 Other place in hospital as the place of occurrence of the external cause; N18.3 Chronic kidney disease, stage 3 (moderate); I07.1 Rheumatic tricuspid insufficiency; Z74.01 Bed confinement status; Z88.5 Allergy status to narcotic agent; Z88.0 Allergy status to penicillin; Z79.51 Long term (current) use of inhaled steroids; Z79.82 Long term (current) use of aspirin; Z79.899 Other long term (current) drug therapy; Z68.21 Body mass index [BMI] 21.0-21.9, adult; Z87.442 Personal history of urinary calculi; Z91.19 Patient's noncompliance with other medical treatment and regimen; Z79.84 Long term (current) use of oral hypoglycemic drugs
CPT/HCPCS: 36415; 36600; 70450; 70486; 71045; 74176; 74241; 76705; 80048; 80053; 80061; 80076; 80202; 81001; 82140; 82550; 82553; 82803; 82805; 82962; 83615; 83690; 83735; 83880; 84100; 84134; 84478; 84484; 85007; 85014; 85018; 85025; 85027; 85610; 85730; 86850; 86900; 86901; 86920; 87040; 87070; 87075; 87076; 87086; 87116; 87186; 87205; 88305; 88342; 93005; 93010; 93925; 94002; 94003; 94640; 94660; 94760; 96374; 99292; G0378; A4217; A6260; C9113; J0330; J0692; J1170; J1450; J1644; J1815; J1940; J2185; J2250; J2370; J2405; J2704; J2710; J3010; J3230; J3370; J3475; J3480; J7030; J7040; J7042; J7050; J7120; P9016; Q9963